=== PATIENT | female | born 1970 | race Caucasian/White ===

== ENCOUNTER 2020-01-19 12:00 | Emergency (ER) | payer OTHER, SELFPAY ==
[2020-01-19 12:23] VITALS: BP 123/80; PULSE 84; RESP 20; TEMP 36.7; O2SAT 99
--- NOTE | 2020-01-19 12:41 | ED.URI ---
HPI - URI/Sore Throat General Chief Complaint: Upper Respiratory Infection Stated Complaint: upper respiratory infection Time Seen by Provider: 01/19/20 12:01 Source: patient Mode of arrival: ambulatory Limitations: no limitations History of Present Illness HPI Narrative: 49-year-old female presents to urgent care with complaints of nasal congestion, sore throat, headache, sinus pressure, intermittent nausea and vomiting for the past week. Patient does vape daily. Patient has been taking [id number] sinus medication as well as 2 doses of leftover amoxicillin and 2 dose of leftover doxycycline with minimal relief. Patient denies sick contacts. Patient denies recent travel. Patient denies fever, bites, chills, cough, shortness of breath or wheezing. MD elicited complaint: sore throat, rhinorrhea, nasal congestion and sinus pain Onset (ago): week(s) (1) Consistency: constant Severity: mild Exacerbating factors: nothing Relieving factors: nothing Treatments prior to arrival: cold medicine and antibiotics Related Data Home Medications Medication Instructions Recorded Confirmed bupropion HCl 150 mg PO DAILY 01/19/20 01/19/20 cariprazine [Vraylar] 1.5 mg PO DAILY 01/19/20 01/19/20 duloxetine [Cymbalta] 20 mg PO BID 01/19/20 01/19/20 famotidine 40 mg PO DAILY 01/19/20 01/19/20 hydrocodone-acetaminophen 1 tablet PO BID PRN 01/19/20 01/19/20 ibuprofen 800 mg PO TID PRN 01/19/20 01/19/20 levothyroxine 125 mcg PO DAILY 01/19/20 01/19/20 solifenacin 10 mg PO DAILY 01/19/20 01/19/20 Allergies Allergy/AdvReac Type Severity Reaction Status Date / Time Sulfa (Sulfonamide Allergy Unknown Rash Verified 01/19/20 12:20 Antibiotics) Review of Systems Constitutional: Constitutional: Denies chills, Denies fatigue, Denies fever(s) and Denies weakness ENT: Reports as per HPI, Denies dysphagia, Denies vertigo, Denies dizziness, Denies epistaxis, Reports nasal congestion and Reports sore throat Cardiovascular: Cardiovascular: Denies chest pain, Denies rapid heart rate, Denies radiating jaw, neck or arm pain and Denies slow heart rate Respiratory: Respiratory: Denies cough, Denies dyspnea and Denies wheezing Gastrointestinal: Gastrointestinal: Denies abdominal pain, Denies bloating, Denies constipation, Denies diarrhea, Reports nausea and Reports vomiting Integumentary/Breasts: Skin/Breast: Denies rash Neurologic: Denies vertigo, Denies syncope, Reports headache(s), Denies focal weakness, Denies numbness and Denies weakness PMFSH Past Medical History Medical History (Updated 01/19/20 @ 12:46 by Mariah Desir APRN) Bipolar 1 disorder Surgical History Surgical History (Updated 01/19/20 @ 12:44 by Mariah Desir APRN) Hx of tonsillectomy Family History Family History Father Family history of Parkinson's disease Social History Social History Smoking end date: 05/12/01 Alcohol intake: current Exam Const: General: healthy appearing, no acute distress and alert Orientation/consciousness: patient oriented x3 HENMT: Ears: EAC's normal General nose exam: Normal external nose present Face and sinus: sinus tenderness frontal Teeth and gingiva: dentition normal Throat: uvula midline Other: Mild erythema and swelling noted to uvula, nasal congestion noted Neck: Neck: normal visual inspection Resp: Effort & Inspection: normal respiratory effort and no use of accessory muscles Auscultation: clear to auscultation bilaterally, no rales and no wheezes Cardio: Rate: regular rate, not bradycardic and not tachycardic Rhythm: regular rhythm and regular rhythm Back/Spine/Pelvis: Back: no CVA tenderness Skin: General skin exam: normal color, no jaundice and no pallor Rashes: no rashes Wounds: no wounds Neuro: General: patient oriented x3 and moves all extremities Extrem: General: normal to inspection
== END 2020-01-19 12:56 | disposition home or self-care (01) ==
PROVIDERS: Emergency Provider Nurse Practitioner Family; PCP Physician Assistant
DX: J01.90 Acute sinusitis, unspecified (principal); F31.9 Bipolar disorder, unspecified
CPT/HCPCS: 87081; 87880; 99213; G0463

== ENCOUNTER 2020-03-01 10:06 | Emergency (ER) | payer OTHER, SELFPAY ==
--- NOTE | ~2020-03-01 | XR_ITS ---
XR chest 1V portable 03/01/2020 10:51 Indication: Cough, fever and shortness of breath Procedure: AP portable chest Comparison: 06/29/2014 Findings: There are patchy bilateral airspace opacities. Heart size normal. No pleural effusion or pn eumothorax. No acute osseous abnormality. Impression: 1: Patchy bilateral airspace disease, compatible with pneumonia. Reviewed, dictated and finalized at location B. Impression: 1: Patchy bilateral airspace disease, compatible with pneumonia.
[2020-03-01 10:12] VITALS: BP 119/89; PULSE 100; RESP 18; TEMP 37.7; O2SAT 100
--- NOTE | 2020-03-01 10:17 | ECG_ITS ---
Measurements Intervals [place] Rate: 106 P: 64 NC: 146 QRS: 52 QRSD: 88 T: 25 QT: 294 QTc: 390 Interpretive Statements SINUS TACHYCARDIA BORDERLINE ST-T WAVE ABNORMALITY- DIFFUSE LEADS BASELINE ARTIFACT- I, II, III, AVR, AVL, AVF ABNORMAL ECG Electronically Signed On 03-01-2020 12:01:11 CDT by James Lainez D.O.
--- NOTE | 2020-03-01 11:00 | PC.NURSE ---
Report given to SUMMER Guillen
[2020-03-01] MEDS: KETOROLAC 30 MG/ML VIAL (*BKC) 15 MG IV PUSH (11:36)
[2020-03-01] MEDS: ACETAMINOPHEN/CODEINE ELIXIR (*CRX) 120-12 MG/5 ML UDC PO (11:37)
[2020-03-01 11:38] VITALS: BP 115/64; PULSE 102; RESP 20; O2SAT 97
--- NOTE | 2020-03-01 12:39 | ED.URI ---
HPI - URI/Sore Throat General Chief Complaint: Upper Respiratory Infection Stated Complaint: SOB, cough, fever Time Seen by Provider: 03/01/20 10:14 Source: patient Mode of arrival: ambulatory Limitations: no limitations History of Present Illness HPI Narrative: Patient presents with chief complaint of cold-like symptoms that began last Friday. Patient states she has been experiencing fever, chills, body aches, persistent cough causing her rib soreness and pain, and mild shortness of breath. Patient states that her daughter tested positive for COVID-19 . Patient states she is herself has not been tested yet. Patient denies a history significant for COPD, asthma, or recurrent pneumonia. Patient states that her cough is her persistent that she has trouble sleeping and has lots of soreness so she presented to the emergency department. Related Data Home Medications Medication Instructions Recorded Confirmed bupropion HCl 150 mg PO DAILY 01/19/20 01/19/20 cariprazine [Vraylar] 1.5 mg PO DAILY 01/19/20 01/19/20 duloxetine [Cymbalta] 20 mg PO DAILY 01/19/20 01/19/20 famotidine 40 mg PO DAILY 01/19/20 01/19/20 levothyroxine 125 mcg PO DAILY 01/19/20 01/19/20 Allergies Allergy/AdvReac Type Severity Reaction Status Date / Time Sulfa (Sulfonamide Allergy Unknown Rash Verified 03/01/20 10:22 Antibiotics) Review of Systems Review of Systems: Narrative: CONSTITUTIONAL: Reports fever and body aches EYES: Denies visual changes, redness, or discharge. ENT: Reports congestion denies rhinorrhea, sore throat, or otalgia. CARDIOVASCULAR: Denies chest pain, palpitations, or edema. RESPIRATORY: Reports persistent cough with rib soreness and mild dyspnea. GASTROINTESTINAL: Denies abdominal pain, nausea, vomiting, or diarrhea. GENITOURINARY: Denies dysuria or hematuria. SKIN: Denies rash or itching. MUSCULOSKELETAL: Denies back pain, joint pain, or myalgia. NEUROLOGIC: Denies headache, numbness, dizziness, or weakness. PSYCHIATRIC: Denies anxiety or depression. [facility] Past Medical History Medical History (Updated 03/01/20 @ 13:00 by Aidan Romero PA-C) Bipolar 1 disorder Surgical History Surgical History (Updated 03/01/20 @ 13:00 by Aidan Romero PA-C) H/O partial thyroidectomy Hx of tonsillectomy Family History Family History Father Family history of Parkinson's disease Social History Social History Smoking end date: 05/12/01 Alcohol intake: current Exam Narrative: Exam Narrative: GENERAL: Well-appearing, well-nourished. HEAD: Normocephalic, atraumatic. EYES: PERRLA and EOMI. ENT: Nares clear, no rhinorrhea or epistaxis. Mucous membranes moist. Oropharynx without tonsillar hypertrophy exudate or other lesions. Bilateral TMs pearly escamilla nonbulging NECK: Supple. No adenopathy or masses. No carotid bruits or JVD CHEST: Clear to auscultation. No respiratory distress. No wheezes rales or rhonchi. Persistent dry cough noted during exam. Patient breathing at a regular rate without gasping or splinting. HEART: Regular rate and rhythm. No murmur heard. Normal peripheral pulses. ABDOMEN: Soft, nontender, nondistended, normal active bowel sounds. EXTREMITIES: Normal range of motion. No edema. SKIN: Warm, dry, no rash. NEURO: No focal deficits. Alert and oriented x3. PSYCH: Normal mood and affect. Course Vital Signs Vital signs: Vital Signs Temperature 99.9 F H 03/01/20 10:12 Pulse Rate 100 03/01/20 10:12 Respiratory Rate 18 03/01/20 10:12 Blood Pressure 119/89 03/01/20 10:12 Pulse Oximetry 100 03/01/20 10:12 Temperature 99.9 F H 03/01/20 10:12 Pulse Rate 102 H 03/01/20 11:38 Respiratory Rate 20 03/01/20 11:38 Blood Pressure 115/64 03/01/20 11:38 Pulse Oximetry 97 03/01/20 11:38 MDM - URI/Sore Throat MDM Narrative Medical decision making narrative
[2020-03-01 13:01] VITALS: BP 108/62; PULSE 80; RESP 20; O2SAT 95
[2020-03-01 19:05] LABS: SARS-CoV-2 RNA PCR Positive
== END 2020-03-01 13:09 | disposition home or self-care (01) ==
PROVIDERS: Physician Assistant; Emergency Provider Emergency Medicine; PCP Physician Assistant
DX: U07.1 COVID-19 (principal); J12.89 Other viral pneumonia; F31.9 Bipolar disorder, unspecified
CPT/HCPCS: 71045; 87081; 87635; 87804; 87880; 93005; 96374; 99284; A9270; C9803; J1885; U0003

== ENCOUNTER 2020-06-19 15:29 | Emergency (ER) | payer OTHER, SELFPAY ==
--- NOTE | ~2020-06-19 | XR_ITS ---
EXAMINATION: XR chest 2V 06/19/2020 16:24 INDICATION: Left chest pain PROCEDURE: 2 view chest COMPARISON: No prior studies for comparison. FINDINGS: The lungs are clear. The cardiomediastinal silhouette is within normal limits. There are no pleural effusions. There is no pneumothorax suspected. IMPRESSION: 1: NO ACUTE CARDIOPULMONARY DISEASE. Reviewed, dictated and finalized at location B. ING MANAGER
[2020-06-19 15:58] VITALS: BP 126/62; PULSE 97; RESP 18; TEMP 36.6; O2SAT 97
--- NOTE | 2020-06-19 16:04 | ECG_ITS ---
Measurements Intervals [place] Rate: 96 P: 52 DC: 133 QRS: 17 QRSD: 88 T: 31 QT: 323 QTc: 409 Interpretive Statements SINUS RHYTHM NONSPECIFIC T-WAVE ABNORMALITY- ANTEROLAT/INF LEADS BASELINE ARTIFACT- I, II, III, AVR, AVF, V6 BORDERLINE ECG Electronically Signed On 06-19-2020 17:22:36 [employer] OPERATOR by James Lainez D.O.
[2020-06-19 16:21] LABS: Basophils Absolute Auto 0.1 K/mm3 (0.0-0.1); Basophils Percent Auto 0.6 % (0.2-1.2); Eosinophils Absolute Auto 0.4 K/mm3 (0-0.3); Eosinophils Percent Auto 4.3 % (0-4.4); Hematocrit 38.3 % (37.0-47.0); Hemoglobin 12.6 g/dL (12.0-15.0); Immature Granulocyte Absolute 0.03 K/mm3 (0.00-0.031); Immature Granulocyte Percent A 0.4 % (0-0.5); Lymphocytes Absolute Auto 2.26 K/mm3 (0.9-3.2); Lymphocytes Percent Auto 27.2 % (18.3-44.2); Mean Corpuscular HGB Conc 32.9 g/dl (32-36); Mean Corpuscular Hemoglobin 30.3 pg (26-34); Mean Corpuscular Volume 92.1 fl (80-100); Mean Platelet Volume 8.2 fl (7.4-10.4); Monocytes Absolute Auto 0.4 K/mm3 (0.1-0.6); Monocytes Percent Auto 5.2 % (2.6-8.5); Neutrophils Absolute Auto 5.2 K/mm3 (1.3-6.7); Neutrophils Percent Auto 62.3 % (45.5-73.1); Platelet Count Result 389 k/mm3 (150-375); Red Blood Count 4.16 M/mm3 (4.2-5.4); Red Cell Distribution Width 12.2 % (11.5-14.5); White Blood Count 8.3 K/mm3 (4.5-10.0)
[2020-06-19 16:31] LABS: INR 0.9; Prothrombin Time 13.1 Seconds (11.1-14.7)
[2020-06-19 16:32] LABS: Partial Thromboplastin Time 26.3 SECONDS (22.3-36.8)
[2020-06-19 16:42] LABS: Anion Gap 9 mmol/L (8-16); Blood Urea Nitrogen 12 mg/dL (7-17); Calcium 9.2 mg/dL (8.4-10.2); Carbon Dioxide 26 mmol/L (22-30); Chloride 106 mmol/L (98-107); Estimated CRCL calculation 66 ml/min; Estimated Glomerular Filt Rate 59; Glucose 114 mg/dL (65-105); Potassium 3.7 mmol/L (3.4-5.0); Sodium 141 mmol/L (137-145)
[2020-06-19 16:54] LABS: Troponin I < 0.012 ng/mL (0.000-0.034)
--- NOTE | 2020-06-19 17:24 | ED.GENADULT ---
HPI - General Adult General Chief complaint: Chest Pain Stated complaint: htn, chest pain Time Seen by Provider: 06/19/20 17:12 Source: patient History of Present Illness HPI narrative: Patient is a 50 y/o female complaining of intermittent left sided chest pain starting 1-2 months ago. She describes her pain as sharp with no radiation. She rates her pain as 10/10 when it hit. However, she has minimal pain. She state that deep breathing and left arm movement aggravates her pain. She has no cough, SOB or fever. She had episodes of dizziness last week, but no dizziness at this time. Related Data Home Medications Medication Instructions Recorded Confirmed bupropion HCl 150 mg PO DAILY 01/19/20 01/19/20 cariprazine [Vraylar] 1.5 mg PO DAILY 01/19/20 01/19/20 duloxetine [Cymbalta] 20 mg PO DAILY 01/19/20 01/19/20 famotidine 40 mg PO DAILY 01/19/20 01/19/20 levothyroxine 125 mcg PO DAILY 01/19/20 01/19/20 Allergies Allergy/AdvReac Type Severity Reaction Status Date / Time Sulfa (Sulfonamide Allergy Unknown Rash Verified 03/01/20 10:22 Antibiotics) Review of Systems Constitutional: Constitutional: Denies chills, Denies fever(s), Denies headache(s) and Denies weakness Eyes: Eyes: Denies blurry vision ENT: Denies headache(s) and Denies neck pain Cardiovascular: Cardiovascular: Reports chest pain and Denies dyspnea Respiratory: Respiratory: Denies cough and Denies dyspnea Gastrointestinal: Gastrointestinal: Denies abdominal pain, Denies diarrhea, Denies nausea and Denies vomiting Genitourinary: Genitourinary: Denies hematuria and Denies dysuria Musculoskeletal: Musculoskeletal: Denies back pain and Denies neck pain Neurologic: Reports dizziness, Denies headache(s) and Denies weakness PMF Past Medical History Medical History Bipolar 1 disorder Surgical History Surgical History H/O partial thyroidectomy Hx of tonsillectomy Family History Family History Father Family history of Parkinson's disease Social History Social History Smoking end date: 05/12/01 Alcohol intake: current Gender identity (if verbalized by the patient): Female Exam Const: General: no acute distress and well developed Orientation/consciousness: oriented to person, oriented to place, oriented to time and patient oriented x3 HENMT: Head: normocephalic Ears: external ears normal General nose exam: Normal external nose present Eyes: General: appearance normal, both eyes and all related structures Conjunctivae: conjunctivae normal Neck: Neck: normal visual inspection and full ROM Chest: Chest palpation & inspection: normal inspection of the chest and no tenderness Resp: Effort & Inspection: normal respiratory effort Auscultation: clear to auscultation bilaterally Cardio: Rate: regular rate Rhythm: regular rhythm GI: GI Palp: No abdominal tenderness and Yes Soft to palpation Skin: General skin exam: normal color and turgor normal Neuro: General: oriented to person, oriented to place, oriented to time and patient oriented x3 Cognition (Neuro): normal cognition Extrem: General: normal to inspection, full ROM and no pedal edema Psych: Appearance: grossly normal Mental Status: mental status grossly normal Affect: normal affect Course Reevaluation(s) Reevaluation #1: Patient wants to leave. She does not want to wait for 2nd troponin and D Dimer. She wants to leave A. She is awake, alert and competent to make medical decision for herself. Date: 06/19/20 Time: 17:45 Vital Signs Vital signs: Vital Signs Temperature 36.6 C 06/19/20 15:58 Pulse Rate 97 06/19/20 15:58 Respiratory Rate 18 06/19/20 15:58 Blood Pressure 126/62 06/19/20 15:58 Pulse Oximetry 97 06/19/20 15:58 Temperature 36.6
[2020-06-19 17:50] LABS: D Dimer 0.27 ug/mL (<0.48)
--- NOTE | 2020-06-19 18:10 | PC.NURSE ---
1740- Called to patients room. Per pt I do not want to stay. I just want to go home. Dr. Moore aware.
== END 2020-06-19 18:14 | disposition left against medical advice (07) ==
LOC: ANHED 17:29
PROVIDERS: Emergency Medicine; Emergency Provider Emergency Medicine; PCP Physician Assistant
DX: R07.9 Chest pain, unspecified (principal); F31.9 Bipolar disorder, unspecified; E89.0 Postprocedural hypothyroidism; R94.31 Abnormal electrocardiogram [ECG] [EKG]
CPT/HCPCS: 36415; 71046; 80048; 84484; 85025; 85380; 85610; 85730; 93005; 99284

== ENCOUNTER 2021-06-14 17:56 | Emergency (ER) | payer OTHER, SELFPAY ==
[2021-06-14 18:03] VITALS: BP 133/72; PULSE 112; RESP 18; TEMP 37.2; O2SAT 98
--- NOTE | 2021-06-14 18:05 | ED.GENADULT ---
HPI - General Adult General Chief complaint: Shortness of Breath/Dyspnea Stated complaint: Cough,Shortness of breath Time Seen by Provider: 06/14/21 18:11 Source: patient, RN notes reviewed and old records reviewed Mode of arrival: ambulatory Limitations: no limitations History of Present Illness HPI narrative: 51 year old female presents to express care with complaints of cough, chest tightness,chills today with some sweats also. Patient reports that she is barking like a dog , has had some chest tightness with cough and congestion with some dyspnea at times. Patient denies any sore throat or any ear pain. She reports that she had Nhan and Nhan COVID vaccination in November 2020 had COVID February of 2020 and also had COVID pneumonia at that time also.Patient has history of being previous cigarette smoker and presently vapes but states that she has not for the past 24 hours. MD complaint: cough Onset (ago): day(s) (2) Quality: aching Treatments prior to arrival: other (Nyquil) Related Data Home Medications Medication Instructions Recorded Confirmed famotidine 40 mg PO DAILY 01/19/20 06/14/21 cariprazine [Vraylar] 4.5 mg PO DAILY 06/14/21 06/14/21 cyanocobalamin (vitamin B-12) 1,000 mcg IM WEEKLY 06/14/21 06/14/21 ergocalciferol (vitamin D2) 1,250 mcg PO WEEKLY 06/14/21 06/14/21 hydrocodone-acetaminophen 1 tablet PO PRN PRN 06/14/21 06/14/21 insulin syringe-needle U-100 [BD 06/14/21 06/14/21 Insulin Syringe] levothyroxine [Euthyrox] 125 mcg PO DAILY 06/14/21 06/14/21 liothyronine 5 mcg PO DAILY 06/14/21 06/14/21 metformin 500 mg PO BID 06/14/21 06/14/21 progesterone micronized 100 mg PO DAILY 06/14/21 06/14/21 semaglutide [Ozempic] 0.25 mg SUBCUT WEEKLY 06/14/21 06/14/21 spironolactone 50 mg PO DAILY 06/14/21 06/14/21 syringe with needle [BD Luer-Mulu 06/14/21 06/14/21 Syringe] testosterone cypionate 200 mg SUBCUT WEEKLY 06/14/21 06/14/21 Allergies Allergy/AdvReac Type Severity Reaction Status Date / Time Sulfa (Sulfonamide Allergy Mild Rash Verified 06/14/21 17:58 Antibiotics) Review of Systems Review of Systems: CONSTITUTIONAL: Positive for fever, chills, or sweats. EYES: Denies visual changes, redness, or discharge. ENT: Positive for rhinorrhea, congestion,no sore throat, or otalgia. CARDIOVASCULAR: Reports chest tightness with cough, no palpitations, or edema. RESPIRATORY: Positive for cough or dyspnea. GASTROINTESTINAL: Denies abdominal pain, nausea, vomiting, or diarrhea. GENITOURINARY: Denies dysuria or hematuria. SKIN: Denies rash or itching. MUSCULOSKELETAL:Chronic back pain, joint pain, or myalgia. NEUROLOGIC: Denies headache, numbness, or weakness. PSYCHIATRIC: Positive for anxiety or depression. All systems reviewed & are unremarkable except as noted in HPI and below PMFSH Past Medical History Medical History (Updated 06/14/21 @ 18:57 by Stephanie Ha NP) Bipolar 1 disorder Bronchitis COVID-28 February 2020 Diabetes states is prediabetic Pneumonia due to COVID-19 virus Surgical History Surgical History (Updated 06/14/21 @ 18:50 by Stephanie Ha NP) H/O partial thyroidectomy H/O tubal ligation Hx of tonsillectomy Family History Family History Father Family history of Parkinson's disease Social History Social History (Updated 06/14/21 @ 18:51 by Stephanie Ha NP) Tobacco type: e-cigarettes/vaping Smoking end date: 05/12/01 Alcohol intake: current Last use: takes hydrocodone for chronic back pain Living arrangements: with family Gender identity (if verbalized by the patient): Female Comments At time of signature, agree with nursing past medical, surgical, social and family history. There is no relevant family history pertinent to the presenting complaint Exam Narrative: GENERAL: Well-appearing, well-nourished, and in no acute distress. HEAD: Normocephalic, atraumatic. EYES: PERRLA and EOMI
== END 2021-06-14 18:43 | disposition home or self-care (01) ==
PROVIDERS: Emergency Provider Registered Nurse; PCP Physician Assistant
DX: U07.1 COVID-19 (principal); J40 Bronchitis, not specified as acute or chronic; F17.200 Nicotine dependence, unspecified, uncomplicated
CPT/HCPCS: 87426; 99213; C9803; G0463

== ENCOUNTER 2021-09-20 15:41 | Outpatient (CLI) | payer OTHER, SELFPAY ==
--- NOTE | ~2021-09-20 | XR_ITS ---
XR thoracic spine 3V DATE: 09/20/2021 16:41 INDICATION: Generalized back pain TECHNIQUE: AP, lateral, swimmer views COMPARISON: None FINDINGS: Mild degenerative disc disease at C5-6. There is mild levoscoliosis of the upper thoracic spine. No fracture or dislocation or bone destruction. The thoracic pedicles are intact. No paraspinal soft tissue thickening. There is minimal degenerative spurring of the lumbar spine. IMPRESSION: Mild levoscoliosis of upper thoracic spine Minimal degenerative spurring of the thoracic spine Reviewed, dictated and finalized at location B.
--- NOTE | ~2021-09-20 | XR_ITS ---
XR cervical spine 4-5V DATE: 09/20/2021 16:41 INDICATION: Neck pain TECHNIQUE: AP, open-mouth, lateral and swimmer views COMPARISON: None FINDINGS: There is mild levoscoliosis of the upper thoracic spine. Slight dextro scoliosis of the cer vical spine C1 and C2 are normally aligned and the odontoid process is intact. No fracture or dislocation or lock ed facet. There is minimal loss of height and anterior spurring at C5-6 consistent with mild degenerative disea se. The remaining cervical interspaces are well preserved. Normal sella turcica. IMPRESSION: Mild degenerative disease at C5-6 Mild levoscoliosis of the upper thoracic spine; slight dextro scoliosis of the cervical spine Reviewed, dictated and finalized at location B.
--- NOTE | ~2021-09-20 | XR_ITS ---
XR lumbar spine 2-3V DATE: 09/20/2021 16:42 INDICATION: Generalized back pain TECHNIQUE: AP, lateral, coned lateral lumbosacral views COMPARISON: None FINDINGS: Mild levoscoliosis of the lumbar spine. The lumbar pedicles are intact. No fracture or bone destruction or spondylolisthesis. There is mild degenerative disc disease and loss of height at L3-4. There is moderately severe degene rative disc disease at L5-S1. The lumbar interspaces are relatively preserved otherwise. The sacroiliac joints are intact. Bilateral tubal inserts are noted IMPRESSION: Mild degenerative disc disease at L3-4 and moderately severe degenerative disc disease at L5-S1 Reviewed, dictated and finalized at location B. IMPRESSION: Mild degenerative disc disease at L3-4 and moderately severe degene rative disc disease at L5-S1
--- NOTE | ~2021-09-20 | XR_ITS ---
XR hip BI 2V w AP pelvis DATE: 09/20/2021 16:42 INDICATION: Bilateral hip pain TECHNIQUE: AP pelvis. AP and lateral views of each hip. COMPARISON: None FINDINGS: No pelvic fracture or bone destruction. The pubic symphysis and sacroiliac joints are intac t. No fracture or dislocation, avascular necrosis or bone destruction of either hip. Hip joint spaces ar e symmetric and relatively preserved. Bilateral tubal inserts. IMPRESSION: No significant abnormality of pelvis or hips Reviewed, dictated and finalized at location B.
--- NOTE | ~2021-09-20 | XR_ITS ---
EXAMINATION: XR knee LT min 4V DATE: 09/20/2021 16:42 INDICATION: Left knee pain. TECHNIQUE: 4 views of left knee including standing views were obtained. COMPARISON: None. FINDINGS: Bone alignment is normal. No fracture. There is mild osteoarthritis of patellofemoral paty rtment characterized by a tiny osteophyte. No knee joint effusion. IMPRESSION: 1. Mild left knee osteoarthritis. Reviewed, dictated and finalized at location A.
--- NOTE | ~2021-09-20 | XR_ITS ---
EXAMINATION: XR knee RT min 4V DATE: 09/20/2021 16:42 INDICATION: Right knee pain. TECHNIQUE: 4 views of right knee including standing views were obtained. COMPARISON: None. FINDINGS: Bone alignment is normal. No fracture. There is mild osteoarthritis of patellofemoral paty rtment characterized by tiny osteophytes. No knee joint effusion. IMPRESSION: 1. Mild right knee osteoarthritis. Reviewed, dictated and finalized at location A.
== END 2021-09-20 15:42 | disposition home or self-care (01) ==
PROVIDERS: PCP Physician Assistant
DX: R10.2 Pelvic and perineal pain (principal); M54.12 Radiculopathy, cervical region; M54.14 Radiculopathy, thoracic region; M54.17 Radiculopathy, lumbosacral region; M25.552 Pain in left hip; M25.551 Pain in right hip; M25.562 Pain in left knee; M25.561 Pain in right knee; M51.36 Other intervertebral disc degeneration, lumbar region; M41.84 Other forms of scoliosis, thoracic region; M46.04 Spinal enthesopathy, thoracic region; M50.322 Other cervical disc degeneration at C5-C6 level; M17.0 Bilateral primary osteoarthritis of knee
CPT/HCPCS: 72050; 72072; 72100; 73521; 73564

== ENCOUNTER 2021-10-02 14:40 | Outpatient (CLI) | payer OTHER, SELFPAY ==
--- NOTE | ~2021-10-02 | MR_ITS ---
EXAMINATION: MR cervical spine wo con DATE: 10/02/2021 15:40 INDICATION: Radiculopathy, left-sided back pain that wraps around to the ribs. TECHNIQUE: Magnetic resonance imaging (MRI) of the cervical spine was performed without intravenous c ontrast. Sequences included sagittal T2-weighted FSE, sagittal T2-weighted FS FSE, sagittal T1-weight ed FSE, axial MERGE, and axial T2-weighted FSE. COMPARISON: X-ray cervical spine 09/20/2021 FINDINGS: Craniocervical association and atlantoaxial joint are intact. Normal alignment. Vertebral b hawa heights are maintained. Disc dehydration at all cervical levels. The cord signal is normal. The f ollowing disc levels are specifically discussed: C2-C3: The disc does not extend beyond the endplate margin. There is no uncovertebral joint osteoarth ritis. There is no facet joint osteoarthritis. There is no neural foraminal stenosis. There is no sheron tral canal stenosis. C3-C4: The disc does not extend beyond the endplate margin. There is no uncovertebral joint osteoarth ritis. There is no facet joint osteoarthritis. There is no neural foraminal stenosis. There is no sheron tral canal stenosis. C4-C5: The disc does not extend beyond the endplate margin. There is no uncovertebral joint osteoarth ritis. There is no facet joint osteoarthritis. There is no neural foraminal stenosis. There is no sheron tral canal stenosis. C5-C6: Mild diffuse bulge mild There is mild uncovertebral joint osteoarthritis. There is no facet mai int osteoarthritis. There is no neural foraminal stenosis. There is no central canal stenosis. C6-C7: Mild diffuse bulge. There is mild uncovertebral joint osteoarthritis. There is no facet joint osteoarthritis. There is no neural foraminal stenosis. There is no central canal stenosis. C7-T1: The disc does not extend beyond the endplate margin. There is no uncovertebral joint osteoarth ritis. There is no facet joint osteoarthritis. There is no neural foraminal stenosis. There is no sheron tral canal stenosis. IMPRESSION: 1. Mild multilevel degenerative disc disease, most pronounced at C5-6 and C6-7. Reviewed, dictated and finalized at location K.
== END 2021-10-02 14:41 | disposition home or self-care (01) ==
PROVIDERS: PCP Physician Assistant; Visit Provider Physical Medicine & Rehabilitation Pain Medicine
DX: M50.122 Cervical disc disorder at C5-C6 level with radiculopathy (principal)
CPT/HCPCS: 72141

== ENCOUNTER 2021-11-07 09:54 | Emergency (ER) | payer OTHER, SELFPAY ==
--- NOTE | ~2021-11-07 | CT_ITS ---
EXAMINATION: CT abdomen pelvis w con DATE: 11/07/2021 11:29 INDICATION: Abdominal pain, nausea, vomiting TECHNIQUE: Computed tomography (CT) of the abdomen and pelvis was performed with 100 CC Omnipaque 300 intravenous contrast. Automated exposure control and iterative reconstruction technique were employe d. Exam dose: 390.63 mGy-cm total exam DLP. COMPARISON: 02/13/2017 CT abdomen pelvis FINDINGS: There is mild discoid atelectasis at the dependent lower lobes. Normal heart size. No pericardial or pleural effusion. Spleen, pancreas and kidneys are unremarkable, other than a 2 small cysts of the kidneys. The gallbla dder appears normal. No bile duct or pancreatic duct dilatation. Normal caliber of the abdominal aorta. No intraperitoneal or retroperitoneal or pelvic mass lesion or adenopathy or ascites. Uterus is unremarkable. Bilateral fallopian tube inserts. There is fluid distention of the jejunum, measuring upper limits of normal diameter, with air-fluid l evels, without transition zone, suggesting enteritis or mild adynamic ileus. There is a prominent amount of fecal material in the colon. No bowel obstruction is noted. No intrape ritoneal free air. Small fat-containing umbilical hernia. Severe degenerative disease at L5-S1. No suspicious osteolytic or osteoblastic lesions are noted. IMPRESSION: Fluid distended jejunum measuring upper limits of normal diameter, with air-fluid levels , without transition zone; and these may be due to enteritis, mild adynamic ileus. Small bowel series might be considered. Prominent amount fecal material in the colon Small renal cysts Reviewed, dictated and finalized at [facility]. Reviewed, dictated and finalized at location B. IMPRESSION: Fluid distended jejunum measuring upper limits of normal diameter, with air-fluid levels, without transition zone; and these may be due to enteri tis, mild adynamic ileus. Small bowel series might be considered. Prominent amount fecal material in the colon Small renal cysts
[2021-11-07 10:00] VITALS: BP 125/73; PULSE 90; RESP 18; TEMP 36.1; O2SAT 98
[2021-11-07 10:15] LABS: Basophils Percent Auto 0.4 % (0.2-1.2); Eosinophils Absolute Auto 0.2 K/mm3 (0-0.3); Hematocrit 38.1 % (37.0-47.0); Hemoglobin 12.8 g/dL (12.0-15.0); Immature Granulocyte Absolute 0.04 K/mm3 (0.00-0.031); Immature Granulocyte Percent A 0.4 % (0-0.5); Lymphocytes Absolute Auto 2.96 K/mm3 (0.9-3.2); Lymphocytes Percent Auto 30.7 % (18.3-44.2); Mean Corpuscular HGB Conc 33.6 g/dl (32-36); Mean Corpuscular Hemoglobin 31.1 pg (26-34); Mean Corpuscular Volume 92.7 fl (80-100); Mean Platelet Volume 8.4 fl (7.4-10.4); Monocytes Absolute Auto 0.4 K/mm3 (0.1-0.6); Monocytes Percent Auto 4.6 % (2.6-8.5); Neutrophils Percent Auto 61.9 % (45.5-73.1); Platelet Count Result 359 k/mm3 (150-375); Red Blood Count 4.11 M/mm3 (4.2-5.4); Red Cell Distribution Width 12.9 % (11.5-14.5); White Blood Count 9.7 K/mm3 (4.5-10.0)
--- NOTE | 2021-11-07 10:16 | PC.NURSE ---
patient reports that she is supposed to be taking lots more medications but is refusing to take them due to the fact that she hates taking medications.
[2021-11-07 10:17] LABS: Appearance Urine Clear (Clear); Bilirubin Urine 1+ (Negative); Blood Urine 2+ (Negative); Glucose Urine UA Negative (Negative); Ketones Urine Trace mg/dL (Negative); Leukocyte Esterase Ur Trace LEU/UL (Negative); Nitrate Urine Negative (Negative); Protein Urine 1+ mg/dL (Negative); Urobilinogen Urine 0.2 mg/dL (<2.0)
[2021-11-07 10:22] LABS: Mucus Urine Few /lpf; RBC Urine 21-50 /hpf (0-2); Squamous Epithelial Cell Urine Moderate /hpf (Few); WBC Urine 0-3 /hpf
[2021-11-07 10:25] LABS: Add Urine Microscopic? YES; Color Urine Dark Yellow (Yellow)
--- NOTE | 2021-11-07 10:28 | ECG_ITS ---
Measurements Intervals [place] Rate: 62 P: 48 NM: 148 QRS: 17 QRSD: 86 T: 20 QT: 382 QTc: 390 Interpretive Statements SINUS RHYTHM COMPARED TO ECG 06/19/2020 16:08:47 NO SIGNIFICANT CHANGES Electronically Signed On 11-07-2021 12:46:06 CDT by Sury Hoang M.D.
--- NOTE | 2021-11-07 10:28 | ED.NAVMDI ---
HPI - Nausea/Vomiting/Diarrhea General Chief complaint: Nausea/Vomiting/Diarrhea <Marimaa Carrillo PA-C - Last Filed: 11/07/21 18:02> Stated complaint: n/v x 8 mos <Mariama Carrillo PA-C - Last Filed: 11/07/21 18:02> Time Seen by Provider: 11/07/21 10:17 <Mariama Carrillo PA-C - Last Filed: 11/07/21 18:02> History of Present Illness HPI Narrative: Patient is a 51-year-old female here for evaluation of nausea and vomiting over the past 8 months. Patient tells me that she has had about 1-2 episodes of vomiting nearly every day without clear trigger. Denies post prandial vomiting. States that the vomiting is associated with a gnawing and burning sensation in her epigastrium. Also notes that she has chronic issues with constipation for as long as I can remember , although her last BM was yesterday. Denies blood in her vomit, diarrhea, fevers, chills. States that she is additionally noted a chest discomfort over the past week that will develop after she vomits, described as a burning. No shortness of breath, diaphoresis, cardiac hx. Patient has been evaluated by her PCP (Job EDMONDSON) and was prescribed zofran for her symptoms which has not been providing much relief. She has not seen a GI specialist. <Mariama Carrillo PA-C - Last Filed: 11/07/21 18:02> Related Data Home medications: Home Medications Medication Instructions Recorded Confirmed ondansetron 4 mg disintegrating tablet 11/07/21 tablet semaglutide 0.25 mg or 0.5 mg (2 mg subcut 11/07/21 mg/1.5 mL) subcutaneous pen injector (Ozempic) <ANIA Bedoya Last Filed: 11/07/21 18:02> Allergies/Adverse reactions: Allergies Allergy/AdvReac Type Severity Reaction Status Date / Time Sulfa (Sulfonamide Allergy Mild Rash Verified 11/07/21 10:14 Antibiotics) <ANIA Bedoya Last Filed: 11/07/21 18:02> Review of Systems Review of Systems: Gen: Denies fevers or chills Eyes: Denies eye pain or visual change ENT: Denies congestion Respiratory: Denies shortness of breath or cough CV: Reports chest pain. Denies palpitations GI: Reports abdominal pain, nausea, vomiting, constipation. Denies diarrhea : denies burning, urgency, frequency or hematuria Musculoskeletal: Denies back pain or muscle pain Neuro: Denies numbness, tingling, weakness or focal weakness Skin: Denies rash Except as documented, all other systems reviewed and negative <Mariama Carrillo PA-C - Last Filed: 11/07/21 18:02> PMFSH Past Medical History Medical History: Medical History Bipolar 1 disorder Bronchitis COVID-28 February 2020 Diabetes states is prediabetic Pneumonia due to COVID-19 virus <Mariama Carrillo PA-C - Last Filed: 11/07/21 18:02> Surgical History Surgical History: Surgical History H/O partial thyroidectomy H/O tubal ligation Hx of tonsillectomy <Mariama Carrillo PA-C - Last Filed: 11/07/21 18:02> Family History Family History: Family History Father Family history of Parkinson's disease <Mariama Carrillo PA-C - Last Filed: 11/07/21 18:02> Social History Social History: Social History (Updated 06/14/21 @ 18:51 by Stephanie Ha NP) Tobacco type: e-cigarettes/vaping Smoking end date: 05/12/01 Alcohol intake: current Last use: takes hydrocodone for chronic back pain Gender identity (if verbalized by the patient): Female <Mariama Carrillo PA-C - Last Filed: 11/07/21 18:02> Exam Narrative: APPEARANCE: Well appearing, no pain in distress, well-nourished. Head: Normocephalic and atraumatic. EYES: PERRLA/EOMI, conjunctivae clear NOSE: No nasal drainage EARS: External ear normal in appearance THROAT: Oropharynx is clear. Muc
[2021-11-07 10:34] LABS: Alanine Aminotransferase 14 U/L (6-35); Albumin Level 4.4 g/dL (3.5-5.1); Alkaline Phosphatase 77 U/L (38-126); Anion Gap 7 mmol/L (8-16); Aspartate Amino Transferase 20 U/L (14-36); Bilirubin,Total 0.4 mg/dL (0.2-1.3); Blood Urea Nitrogen 9 mg/dL (7-17); Calcium 8.6 mg/dL (8.4-10.2); Carbon Dioxide 25 mmol/L (22-30); Chloride 108 mmol/L (98-107); Estimated CRCL calculation 72 ml/min; Estimated Glomerular Filt Rate > 60; Glucose 104 mg/dL (65-110); Lipase 83 U/L (23-300); Potassium 4.2 mmol/L (3.4-5.0); Sodium 140 mmol/L (137-145)
[2021-11-07] MEDS: FAMOTIDINE 20 MG/2 ML VIAL IV PUSH (10:37)
[2021-11-07] MEDS: ONDANSETRON INJ 4 MG/2 ML VIAL IV PUSH (10:37)
[2021-11-07] MEDS: SODIUM CHLORIDE 0.9% IV 1,000 ML 999 ML IV CONT (10:37)
[2021-11-07 10:59] LABS: Troponin I < 0.012 ng/mL (0.000-0.034)
[2021-11-07 11:35] VITALS: BP 163/77; PULSE 55; RESP 17; O2SAT 100
[2021-11-07 12:19] VITALS: BP 118/78; PULSE 62; RESP 12; O2SAT 100
[2021-11-07 12:59] VITALS: BP 114/60; PULSE 67; RESP 13; O2SAT 100
--- NOTE | 2021-11-07 12:59 | PC.NURSE ---
patient requests [employer] paperwork because she needs to get back to work and does not want to wait any longer.
== END 2021-11-07 13:08 | disposition home or self-care (01) ==
PROVIDERS: Physician Assistant; Emergency Provider Emergency Medicine; PCP Physician Assistant
DX: R11.2 Nausea with vomiting, unspecified (principal); F31.9 Bipolar disorder, unspecified; Z86.16 Personal history of COVID-19
CPT/HCPCS: 36415; 74177; 80053; 81001; 81025; 83690; 84484; 85025; 93005; 96361; 96374; 96375; 99284; J2405; J7030; Q9967

== ENCOUNTER 2021-12-10 10:02 | Emergency (ER) | payer OTHER, SELFPAY ==
--- NOTE | 2021-12-10 10:07 | ED.SKABFB ---
HPI - Skin/Abscess/Foreign Bdy General Chief complaint: Skin/Abscess/Foreign Body Stated complaint: spider bite Time Seen by Provider: 12/10/21 10:07 Source: patient Mode of arrival: ambulatory Limitations: no limitations History of Present Illness HPI narrative: Ms. Ferrell is a 51-year-old female patient presenting to the clinic today with complaints of a possible spider bite. She reports that she was bitten yesterday while asleep. She does not know what type of insect bit her however she has having swelling, pain, and itching in the right foot. There is no obvious sign of a insect bite. She has taken some Benadryl and that has not helped. Related Data Home Medications Medication Instructions Recorded Confirmed cariprazine 4.5 mg capsule 4.5 mg DAILY 12/10/21 12/10/21 (Vraylar) clonidine HCl 0.1 mg tablet 0.1 mg BID 12/10/21 12/10/21 divalproex 125 mg tablet,delayed 125 mg PO BID 12/10/21 12/10/21 release semaglutide 0.25 mg or 0.5 mg (2 0.5 mg subcut WEEKLY 12/10/21 12/10/21 mg/1.5 mL) subcutaneous pen injector (Ozempic) Allergies Allergy/AdvReac Type Severity Reaction Status Date / Time Sulfa (Sulfonamide Allergy Mild Rash Verified 12/10/21 10:19 Antibiotics) Review of Systems Review of Systems: Pertinent positives per HPI. Patient denies any fever, chills, rash, headache, visual changes, dizziness, cough, runny nose, sore throat, shortness of breath, chest pain, palpitations, nausea, vomiting, diarrhea, constipation, abdominal pain, or any urinary issues. [facility] Past Medical History Medical History Abnormal CT of the abdomen Bipolar 1 disorder Bronchitis Constipation COVID-28 February 2020 Diabetes states is prediabetic Pneumonia due to COVID-19 virus Vomiting Surgical History Surgical History H/O partial thyroidectomy H/O tubal ligation Hx of tonsillectomy Family History Family History Father Family history of Parkinson's disease Social History Social History Smoking status: Never smoker Tobacco type: e-cigarettes/vaping Smoking end date: 05/12/01 Alcohol intake: current Last use: takes hydrocodone for chronic back pain Gender identity (if verbalized by the patient): Female Comments At the time of my signature, I reviewed and agree with the nursing past medical, surgical, social, and family history. There is no relevant family history pertinent to the patient complaint. Exam Narrative: General: Well-developed, well nourished, in no apparent distress Head: Normocephalic, atraumatic. Cardio: Regular rate and rhythm, s1 and s2 normal, no murmur appreciated. Resp: Clear to auscultation bilaterally, no rhonchi, rales, wheezing or rubs. Integumentary: [place], warm, and dry, intact without lesion, mild redness with significant swelling to the right foot and ankle, no sign of insect bite or sting however patient is having some severe itching. Very mild warmth with palpation when compared to the left foot. Course Course Emergency Course: Portions of this record may have been created with voice recognition software. Level of Care: Express Care Visit Vital Signs Vital signs: Vital signs reviewed MDM - Skin/Abscess/Foreign Bdy MDM Narrative Medical decision making narrative: At the time of visit patient is resting comfortably on the exam table. Patient has what appears to be an allergic reaction from an insect bite or sting. I will give her a prescription for some prednisone and have her take Benadryl rest ice and elevate her right foot. Supportive measures were discussed with the patient she voiced understanding of discharge instructions and agrees to the treatment plan Differential Diagnosis Differential diagnosis:
[2021-12-10 10:18] VITALS: BP 119/70; PULSE 81; RESP 18; TEMP 36.8; O2SAT 100
== END 2021-12-10 10:26 | disposition home or self-care (01) ==
PROVIDERS: Emergency Provider Nurse Practitioner Family
DX: S90.861A Insect bite (nonvenomous), right foot, initial encounter (principal); W57.XXXA Bitten or stung by nonvenomous insect and other nonvenomous arthropods, initial encounter; R73.03 Prediabetes; Z86.16 Personal history of COVID-19
CPT/HCPCS: 99213; G0463

== ENCOUNTER 2021-12-12 08:17 | Outpatient (CLI) | payer OTHER, SELFPAY ==
--- NOTE | ~2021-12-12 | XR_ITS ---
XR shoulder RT min 2V DATE: 12/12/2021 08:51 INDICATION: Chronic right shoulder pain. Repetitive motion at work. TECHNIQUE: 4 views COMPARISON: None FINDINGS: Small focal calcification at lateral aspect of greater tuberosity which may be due to mild calcific tendinitis. There is mild superior subluxation of the humeral head at the glenohumeral joint suggesting right rot ator cuff atrophy or tear. No fracture, dislocation, periosteal reaction or bone destruction. IMPRESSION: Suggestion of rotator cuff atrophy or tear, possible mild calcific tendinitis Reviewed, dictated and finalized at location B.
--- NOTE | ~2021-12-12 | XR_ITS ---
EXAMINATION: XR small bowel follow through DATE: 12/12/2021 12:27 INDICATION: Abnormal findings on diagnostic imaging of other modality with prior CT demonstrating eit her enteritis or adynamic ileus TECHNIQUE: Quality Assurance Supervisor Trim radiograph(s) of the abdomen was/were obtained. Oral contrast was administered, and sequential radiographs of the abdomen were obtained until oral contrast was noted to be in the proxi mal colon. Spot fluoroscopic images of the small bowel were obtained. Fluoroscopy exposure time was 0 .2 minutes. A total of 5 fluoroscopic images and 10 overhead radiographs were obtained. COMPARISON: None. FINDINGS: Quality Assurance Supervisor Trim radiograph demonstrates bilateral Essure type fallopian tube occlusion devices in the pelvis. T here are also several phleboliths in the pelvis. Moderate amount of colonic stool. No dilated gas-abbie led loops of bowel to suggest obstruction. Transit time from the stomach to proximal colon was approx imately 3 hours and 30 minutes. There is normal caliber and mucosal fold pattern throughout the small bowel. Terminal ileum is normal. No tethering or abnormal mass effect observed upon the small michael l with real-time fluoroscopy. IMPRESSION: 1. Normal small bowel follow-through. Reviewed, dictated and finalized at location A.
--- NOTE | ~2021-12-12 | MR_ITS ---
EXAMINATION: MR thoracic spine wo con DATE: 12/12/2021 10:12 INDICATION: Radiculopathy. Chronic mid back pain. No injury. TECHNIQUE: Magnetic resonance imaging (MRI) of the thoracic spine was performed without intravenous c ontrast. Sagittal localizer T1-weighted FSE of the cervical spine was obtained. Thoracic spine sequen bryan included sagittal T2-weighted FSE, sagittal T1-weighted FSE, sagittal T2-weighted FS FSE, and axi al T2-weighted FSE. COMPARISON: X-ray thoracic spine 09/20/2021. FINDINGS: Mild thoracic scoliosis. Mild thoracic kyphosis. Vertebral body hemangiomas at multiple lev els. Vertebral body heights are aligned. Multilevel loss of disc height and hydration from T3 to T9. Small central protrusions causing mild canal stenosis at C5-6, C6-7, and T8-9. 4 mm left paracentral protrusion at T7-8 which contacts the cord causing mild-moderate canal stenosis. 4 mm central disc ex trusion at T9-10 which contacts the cord causing mild-moderate canal stenosis. No significant neural foraminal narrowing. Vertebral body heights are intact. Normal facets. The cord is normal in signal a nd caliber. Conus terminates at L1-2. IMPRESSION: 1. Multilevel degenerative disc disease, with multilevel small central disc protrusions/extrusions an d multilevel mild-moderate canal stenosis. Reviewed, dictated and finalized at location K. IMPRESSION: 1. Multilevel degenerative disc disease, with multilevel small central disc pro trusions/extrusions and multilevel mild-moderate canal stenosis.
== END 2021-12-12 08:18 | disposition home or self-care (01) ==
LOC: ANHIMG 08:23
PROVIDERS: Visit Provider Nurse Practitioner Family
DX: M47.814 Spondylosis without myelopathy or radiculopathy, thoracic region (principal); R11.10 Vomiting, unspecified; S43.081A Other subluxation of right shoulder joint, initial encounter; R93.5 Abnormal findings on diagnostic imaging of other abdominal regions, including retroperitoneum; K59.00 Constipation, unspecified; M40.204 Unspecified kyphosis, thoracic region
CPT/HCPCS: 72146; 73030; 74250

== ENCOUNTER 2021-12-31 00:23 | Day surgery (SDC) | payer OTHER, SELFPAY ==
[2021-12-19 16:11] VITALS: BMI 28.3
--- NOTE | 2021-12-20 12:22 | PC.NURSE ---
12/20/2021 Anesthesia, Dr. Johnson and Dr. Smith aware of patients' substance use of daily cocaine. Ok to proceed as scheduled for EGD and Colonoscopy on 12/31/2021
--- NOTE | 2021-12-28 14:14 | PM.HPGS ---
History of Present Illness History of Present Illness Consent: Risks, benefits, and alternatives have been discussed and questions answered. Patient agrees to proceed with procedure. Chief complaint: neoplasm screening, vomiting Narrative: Hope Ferrell is a 51 year old female who?for the past 8 months has had sudden random episodes of vomiting. Reports 1-2 episodes almost daily. She cannot identify any triggers that make her vomiting worse.? she denies any postprandial vomiting. Reports even waking in the middle of the night to vomit.? states she will come nauseous right before vomiting but other than that she denies any nausea. she reports intermittent heartburn symptoms 1 or 2 times a week that she treats with [id number] antacids as needed with good relief.? reports last Friday she woke with an episode of diarrhea which prompted her to follow up in the ER. CT scan revealed?Fluid distended jejunum measuring upper limits of normal diameter, with air-fluid levels, without transition zone; and these may be due to enteritis, mild adynamic ileus. She is also due for colon cancer screening. Review of Systems Review of Systems: All systems reviewed & are unremarkable except as noted in HPI and below PMFSH Past Medical History Medical History Abnormal CT of the abdomen Bipolar 1 disorder Bronchitis Constipation COVID-28 February 2020 Diabetes states is prediabetic Pneumonia due to COVID-19 virus Vomiting Surgical History Surgical History H/O partial thyroidectomy H/O tubal ligation Hx of tonsillectomy Family History Family History Father Family history of Parkinson's disease Social History Social History Smoking status: Current every day smoker Tobacco type: e-cigarettes/vaping Smoking end date: 05/12/01 Alcohol intake: current Substance use: current Substance use type: crack/cocaine Other substance usage details: Daily Last use: takes hydrocodone for chronic back pain Living arrangements: with family Gender identity (if verbalized by the patient): Female Spiritual care concerns: No Meds Home Medications and Allergies Home Medications Medication Instructions Recorded Confirmed Type cariprazine 4.5 mg capsule 4.5 mg PO DAILY 12/10/21 12/31/21 History (Vraylar) clonidine HCl 0.1 mg tablet 0.1 mg PO BID 12/10/21 12/31/21 History divalproex 125 mg tablet,delayed 125 mg PO BID 12/10/21 12/31/21 History release semaglutide 0.25 mg or 0.5 mg (2 0.5 mg subcut WEEKLY 12/10/21 12/31/21 History mg/1.5 mL) subcutaneous pen injector ([employer]) Allergies Allergy/AdvReac Type Severity Reaction Status Date / Time Sulfa (Sulfonamide Allergy Mild Rash Verified 12/31/21 11:46 Antibiotics) Exam Const: General: alert Orientation/consciousness: patient oriented x3 Resp: Auscultation: clear to auscultation bilaterally Cardio: Rhythm: regular rhythm GI: GI Palp: Yes Soft to palpation and No Tenderness to palpation present (GI) Neuro: General: patient oriented x3 Assessment and Plan Assessment and plan (1) Vomiting: Code(s): R11.10 - Vomiting, unspecified Status: Acute Assessment and Plan: EGD with possible biopsy or dilatation or cautery. (2) Colon cancer screening: Code(s): Z12.11 - Encounter for screening for malignant neoplasm of colon Status: Acute Assessment and Plan: Colonoscopy with possible biopsy or polypectomy or cautery or injection of substances.
[2021-12-31 11:47] VITALS: BP 112/64; PULSE 100; RESP 16; TEMP 36.6; O2SAT 98
[2021-12-31] MEDS: LACTATED RINGERS 1,000 ML 150 ML IV CONT (11:49)
--- NOTE | 2021-12-31 12:56 | P.PNAN_ITS ---
Anes - Eval Pre Procedure Procedure: Operation Date: 12/31/21 13:00 Proposed Procedures p Esophagogastroduodenoscopy & Screening Colonoscopy - Tad Cuevas MD Date/Time: 12/31/21 12:56 Pre Op Diagnosis: neoplasm screening, vomiting Patient Data Age: 51 Gender: F Height: 1.63 m Weight: 74.4 kg Last Vital Signs Temp 36.6 C 12/31/21 11:47 Pulse 100 12/31/21 11:47 Resp 16 12/31/21 11:47 BP 112/64 12/31/21 11:47 Pulse Ox 98 12/31/21 11:47 O2 Del Method Room Air 12/31/21 11:47 Allergies Allergy/AdvReac Type Severity Reaction Status Date / Time Sulfa (Sulfonamide Allergy Mild Rash Verified 12/31/21 11:46 Antibiotics) Home Medications Medication Instructions Recorded Confirmed Type cariprazine 4.5 mg capsule 4.5 mg PO DAILY 12/10/21 12/31/21 History (Vraylar) clonidine HCl 0.1 mg tablet 0.1 mg PO BID 12/10/21 12/31/21 History divalproex 125 mg tablet,delayed 125 mg PO BID 12/10/21 12/31/21 History release semaglutide 0.25 mg or 0.5 mg (2 0.5 mg subcut WEEKLY 12/10/21 12/31/21 History mg/1.5 mL) subcutaneous pen injector (Ozempic) Patient hx anesthesia problems: none Family hx anesthesia problems: none Results Review: All pre-operative results and documents have been reviewed as part of the pre- operative evaluation. [facility] Past Medical History Medical History Abnormal CT of the abdomen Bipolar 1 disorder Bronchitis Constipation COVID-28 February 2020 Diabetes states is prediabetic Pneumonia due to COVID-19 virus Vomiting Surgical History Surgical History H/O partial thyroidectomy H/O tubal ligation Hx of tonsillectomy Family History Family History Father Family history of Parkinson's disease Social History Social History Smoking status: Current every day smoker Tobacco type: e-cigarettes/vaping Smoking end date: 05/12/01 Alcohol intake: current Substance use: current Substance use type: crack/cocaine Other substance usage details: Daily Last use: takes hydrocodone for chronic back pain Living arrangements: with family Gender identity (if verbalized by the patient): Female Spiritual care concerns: No Exam Day of Procedure 12/31/21 12:56
--- NOTE | 2021-12-31 13:09 | WPDANESEPPF ---
Anes - Initial Pre Proc Eval Procedure: Operation Date: 12/31/21 13:00 Proposed Procedures p Esophagogastroduodenoscopy & Screening Colonoscopy - Tad Cuevas MD Date/Time: 12/31/21 13:09 Surgeon: Tad Cueavs MD Pre Op Diagnosis: neoplasm screening, vomiting Patient Data Age: 51 Gender: F Height: 1.63 m Weight: 74.4 kg Last Vital Signs Temp 97.8 F 12/31/21 11:47 Pulse 100 12/31/21 11:47 Resp 16 12/31/21 11:47 BP 112/64 12/31/21 11:47 Pulse Ox 98 12/31/21 11:47 O2 Del Method Room Air 12/31/21 11:47 Allergies Allergy/AdvReac Type Severity Reaction Status Date / Time Sulfa (Sulfonamide Allergy Mild Rash Verified 12/31/21 11:46 Antibiotics) Home Medications Medication Instructions Recorded Confirmed Type cariprazine 4.5 mg capsule 4.5 mg PO DAILY 12/10/21 12/31/21 History (Vraylar) clonidine HCl 0.1 mg tablet 0.1 mg PO BID 12/10/21 12/31/21 History divalproex 125 mg tablet,delayed 125 mg PO BID 12/10/21 12/31/21 History release semaglutide 0.25 mg or 0.5 mg (2 0.5 mg subcut WEEKLY 12/10/21 12/31/21 History mg/1.5 mL) subcutaneous pen injector (Ozempic) Patient hx anesthesia problems: none Family hx anesthesia problems: none Results Review: All pre-operative results and documents have been reviewed as part of the pre-operative evaluation. [facility] Past Medical History Medical History Abnormal CT of the abdomen Bipolar 1 disorder Bronchitis Constipation COVID-28 February 2020 Diabetes states is prediabetic Pneumonia due to COVID-19 virus Vomiting Surgical History Surgical History H/O partial thyroidectomy H/O tubal ligation Hx of tonsillectomy Family History Family History Father Family history of Parkinson's disease Social History Social History Smoking status: Current every day smoker Tobacco type: e-cigarettes/vaping Smoking end date: 05/12/01 Alcohol intake: current Substance use: current Substance use type: crack/cocaine Other substance usage details: Daily Last use: takes hydrocodone for chronic back pain Living arrangements: with family Gender identity (if verbalized by the patient): Female Spiritual care concerns: No Anes - Eval Final PreProcedure Day of Procedure 12/31/21 13:09 Patient weight: overweight Heart: regular rate and rhythm Lungs: clear to auscultation Airway: Mallampati scale class II Neurological: alert and oriented Last oral intake: >/= 8 hours ASA classification: III Emergent: no Anesthetic plan: proceed (pt has a history of cocaine abuse for past 25 years and has a daily use; has had anesthesia in the past while under the influence) Anesthesia type and monitoring: general GIVS Results Review: All pre-operative results and documents have been reviewed as part of the pre-operative evaluation. Informed Consent: The patient's anesthetic plan and its attendant risks and benefits were discussed with the patient/family/POA. Questions were solicited and answers provided to the satisfaction of the patient/family/POA.
--- NOTE | 2021-12-31 13:14 | SUR.OPER ---
EGD start 1310 end 1314, Colonoscopy start 1321 end 1333
[2021-12-31 13:38] VITALS: BP 99/66; PULSE 70; RESP 18; O2SAT 100
[2021-12-31 13:48] VITALS: BP 95/46; PULSE 70; RESP 19; O2SAT 100
[2021-12-31 13:58] VITALS: BP 110/68; PULSE 67; RESP 20; O2SAT 100
== END 2021-12-31 14:09 | disposition home or self-care (01) ==
PROVIDERS: PCP Physician Assistant; Visit Provider Internal Medicine Gastroenterology
PROC: 0DJ08ZZ Inspection of Upper Intestinal Tract, Via Natural or Artificial Opening Endoscopic (ICD-10-PCS; CPT 43235; principal; 2021-12-31 13:00)
DX: Z12.11 Encounter for screening for malignant neoplasm of colon (principal); R11.11 Vomiting without nausea; F31.9 Bipolar disorder, unspecified; E11.9 Type 2 diabetes mellitus without complications; Z86.16 Personal history of COVID-19; F17.210 Nicotine dependence, cigarettes, uncomplicated
CPT/HCPCS: 45378; 43239; 87081; 88305; J2704; J7120

== ENCOUNTER 2022-01-16 12:55 | Emergency (ER) | payer OTHER, SELFPAY ==
--- NOTE | ~2022-01-16 | XR_ITS ---
EXAMINATION: XR chest 2V DATE: 01/16/2022 13:22 INDICATION: Cough. Shortness of breath. TECHNIQUE: Frontal and lateral views of the chest were obtained. COMPARISON: Chest 2 views 06/19/2020 FINDINGS: The chest demonstrates clear lungs without pneumonia, pleural effusion, or pneumothorax. Th e heart size is normal. IMPRESSION: 1. No acute cardiopulmonary disease. Reviewed, dictated and finalized at location A.
[2022-01-16 13:04] VITALS: BP 137/62; PULSE 104; RESP 18; TEMP 36.6; O2SAT 99
--- NOTE | 2022-01-16 13:16 | ED.URI ---
HPI - URI/Sore Throat General Chief Complaint: Upper Respiratory Infection Stated Complaint: . Time Seen by Provider: 01/16/22 13:06 Source: patient and RN notes reviewed Mode of arrival: ambulatory Limitations: no limitations History of Present Illness HPI Narrative: 51-year-old female presented for complaint of shortness of breath and nonproductive cough for the last 3 days. Feels a tickle at the center of her chest causing her to cough. States she has a history of pneumonia and symptoms feel similar. Also endorses this is how she feels when she gets COVID. She denies sick contacts. She has been using an albuterol rescue inhaler today for symptoms. She endorses shortness of breath is at rest not necessarily worse with exertion. She denies hemoptysis, wheezing, fever, chills, or vomiting. MD elicited complaint: cough Related Data Home Medications Medication Instructions Recorded Confirmed cariprazine 4.5 mg capsule 4.5 mg PO DAILY 12/10/21 01/16/22 (Vraylar) clonidine HCl 0.1 mg tablet 0.1 mg PO BID 12/10/21 01/16/22 divalproex 125 mg tablet,delayed 125 mg PO BID 12/10/21 01/16/22 release albuterol sulfate 90 mcg/actuation 90 mcg inhalation DIRECTED 01/16/22 01/16/22 aerosol inhaler levothyroxine 125 mcg tablet 125 mcg DAILY 01/16/22 01/16/22 Allergies Allergy/AdvReac Type Severity Reaction Status Date / Time Sulfa (Sulfonamide Allergy Mild Rash Verified 01/16/22 13:10 Antibiotics) Review of Systems Review of Systems: CONSTITUTIONAL: denies malaise, chills, sweats, fever EYES: Denies visual changes, redness, or discharge ENT: denies rhinorrhea, congestion, sinus pain, otalgia, sore throat CARDIOVASCULAR: Denies chest pain, palpitations, edema RESPIRATORY: Reports cough, dyspnea GASTROINTESTINAL: Denies abdominal pain, nausea, vomiting, diarrhea SKIN: Denies rash or itching MUSCULOSKELETAL: denies myalgia NEUROLOGIC: Denies headache [facility] Past Medical History Medical History Abnormal CT of the abdomen Bipolar 1 disorder Bronchitis Constipation COVID-28 February 2020 Diabetes states is prediabetic Pneumonia due to COVID-19 virus Vomiting Surgical History Surgical History H/O partial thyroidectomy H/O tubal ligation Hx of tonsillectomy Family History Family History Father Family history of Parkinson's disease Social History Social History Smoking status: Current every day smoker Tobacco type: e-cigarettes/vaping Smoking end date: 05/12/01 Alcohol intake: current Substance use: current Substance use type: crack/cocaine Other substance usage details: Daily Last use: takes hydrocodone for chronic back pain Gender identity (if verbalized by the patient): Female Spiritual care concerns: No Exam Narrative: GENERAL: Ill-appearing, nontoxic EYES: conjunctivae clear ENT: Mucous membranes moist. TM pearly escamilla with dull light reflex bilaterally; no tragal tenderness. CHEST: Clear to auscultation, breath sounds equal. Nonproductive cough, No wheezing, rhonchi, rales, or stridor. No respiratory distress, speaks in full sentences. HEART: Regular rate and rhythm. No murmur heard. SKIN: Warm, dry, no rash. NEURO: Alert and oriented x3. PSYCH: Normal mood and affect Course Course Emergency Course: Patient is aware of diagnosis, understands and agrees to treatment plan. Anticipatory guidance given. Patient agrees to follow-up as directed and is aware of reasons to seek care at the emergency department. Portions of this record may have been created with voice recognition software Level of Care: Express Care Visit Vital Signs Vital signs: Vital Signs Temperature 97.8 F 01/16/22 13:04 Pulse Rate 104 H 01/16/22 13:04 Respirator
== END 2022-01-16 13:57 | disposition home or self-care (01) ==
PROVIDERS: Emergency Provider Nurse Practitioner Family
DX: J40 Bronchitis, not specified as acute or chronic (principal); Z20.822 Contact with and (suspected) exposure to COVID-19; F17.290 Nicotine dependence, other tobacco product, uncomplicated; Z86.16 Personal history of COVID-19; R73.03 Prediabetes
CPT/HCPCS: 71046; 87426; 99213; C9803; G0463

== ENCOUNTER 2022-01-21 14:16 | Emergency (ER) | payer OTHER, SELFPAY ==
[2022-01-21 14:26] VITALS: BP 109/81; PULSE 91; RESP 18; TEMP 36.3; O2SAT 99
--- NOTE | 2022-01-21 14:34 | ED.GENADULT ---
HPI - General Adult General Chief complaint: Upper Respiratory Infection Stated complaint: cough History of Present Illness HPI narrative: 51 y/o female. PMHx Bipolar I, Bronchitis, Daily vape smoker, Pre-diabetic. Presents to [facility] today with acute complaints of continued and worsening productive cough & nasal congestion for the past 1 week. She reports a now 'yellow' phlegm production, and 'thick' nasal discharge. Seen previously here at [facility], and has been resuming Medrol dose PK and Tessalon Perles with minimal response according to client. Chest Xray and Covid test on record from only a few days ago, reveals a negative viral test, and no acute cardiopulmonary findings. She denies fever. No chest pain, palpitations, wheezing, edema. In addition, she is now concerned for a post illness 'cold sore' that has erupted to her lower lip. No intra-oral lesions or issues. She is without additional acute c/o upon PE. Related Data Home Medications Medication Instructions Recorded Confirmed cariprazine 4.5 mg capsule 4.5 mg PO DAILY 12/10/21 01/21/22 (Vraylar) clonidine HCl 0.1 mg tablet 0.1 mg PO BID 12/10/21 01/21/22 divalproex 125 mg tablet,delayed 125 mg PO BID 12/10/21 01/21/22 release albuterol sulfate 90 mcg/actuation 90 mcg inhalation DIRECTED 01/16/22 01/21/22 aerosol inhaler levothyroxine 125 mcg tablet 125 mcg DAILY 01/16/22 01/21/22 Allergies Allergy/AdvReac Type Severity Reaction Status Date / Time Sulfa (Sulfonamide Allergy Mild Rash Verified 01/21/22 14:31 Antibiotics) Review of Systems Review of Systems: CONSTITUTIONAL: Denies fever, chills, sweats. EYES: Denies visual changes, redness, discharge. ENT: + rhinorrhea, congestion. No sore throat, otalgia. CARDIOVASCULAR: Denies chest pain, palpitations, edema. RESPIRATORY: Denies dyspnea, wheezing. + worsening cough/congestion. GASTROINTESTINAL: Denies abdominal pain, nausea, vomiting, diarrhea. GENITOURINARY: Denies dysuria, hematuria, abnormal discharge SKIN: Denies rash or itching. MUSCULOSKELETAL: Denies acute back pain, joint pain, or myalgia. NEUROLOGIC: Denies numbness, or focal weakness. PSYCHIATRIC: Denies anxiety or depression. [facility] Past Medical History Medical History Abnormal CT of the abdomen Bipolar 1 disorder Bronchitis Constipation COVID-28 February 2020 Diabetes states is prediabetic Pneumonia due to COVID-19 virus Vomiting Surgical History Surgical History H/O partial thyroidectomy H/O tubal ligation Hx of tonsillectomy Family History Family History Father Family history of Parkinson's disease Social History Social History Smoking status: Current every day smoker Tobacco type: e-cigarettes/vaping Smoking end date: 05/12/01 Alcohol intake: current Substance use: current Substance use type: crack/cocaine Other substance usage details: Daily Last use: takes hydrocodone for chronic back pain Gender identity (if verbalized by the patient): Female Spiritual care concerns: No Exam Narrative: GENERAL: This is a well-nourished, well-developed adult, in no apparent distress. HEAD: normocephalic. EYES: Sclera clear/white. EARS: External ears normal, auditory canals clear and without drainage, TMs normal. NOSE: External nose normal. Positive Rhinorrhea, purulent bilateral nasal discharge. No obstruction. THROAT: Mucous membranes moist, posterior pharynx is erythematous. No exudates. There is an uncomplicated canker sore overlying mid-lower external lip. NECK: Neck supple, non-tender without lymphadenopathy, masses or thyromegaly. CARDIOVASCULAR: Regular rate and rhythm without murmurs, gallops, or rubs. RESPIRATORY: Breath sounds equal dheeraj
== END 2022-01-21 14:37 | disposition home or self-care (01) ==
PROVIDERS: Emergency Provider Nurse Practitioner Adult Health; PCP Physician Assistant
DX: J06.9 Acute upper respiratory infection, unspecified (principal); J40 Bronchitis, not specified as acute or chronic; R73.03 Prediabetes; Z86.16 Personal history of COVID-19; Z90.89 Acquired absence of other organs; F31.9 Bipolar disorder, unspecified
CPT/HCPCS: 99213; G0463

== ENCOUNTER 2022-01-28 16:32 | Emergency (ER) | payer OTHER, SELFPAY ==
[2022-01-28 16:45] VITALS: BP 116/79; PULSE 97; RESP 18; TEMP 36.4; O2SAT 98
--- NOTE | 2022-01-28 16:59 | ED.URI ---
HPI - URI/Sore Throat General Chief Complaint: Upper Respiratory Infection Stated Complaint: Cough,Shortness of Breath Time Seen by Provider: 01/28/22 16:42 Source: patient, RN notes reviewed and old records reviewed Mode of arrival: ambulatory Limitations: no limitations History of Present Illness HPI Narrative: 51-year-old female who presents to express care with complaints of cough, shortness of breath and feels that her cough is getting worse. patient ws seen on the 01/16/22 and also on 01/11/22 in regards to cough and feeling like she had bronchitis. She has been treated with medrol dose pack and also with a Z-pack . Patient states that she needs another round of antibiotics bcause she knows her body. Patient reports that she has been using her inhaler and also she has taken the cough tablets. She states she feels like there is stuff down in her lungs that just won't come up and wh kade been wheezing especially when she lays down. Patient denies any know fevers chills or sweats or any sinus congestion or drainage, MD elicited complaint: cough Onset (ago): day(s) ( states symptoms started) Treatments prior to arrival: other (inhaler, prescription cough tabs, medrol dose pack and Z-pack) Related Data Home Medications Medication Instructions Recorded Confirmed cariprazine 4.5 mg capsule 4.5 mg PO DAILY 12/10/21 01/28/22 (Vraylar) clonidine HCl 0.1 mg tablet 0.1 mg PO BID 12/10/21 01/28/22 divalproex 125 mg tablet,delayed 125 mg PO BID 12/10/21 01/28/22 release albuterol sulfate 90 mcg/actuation 90 mcg inhalation DIRECTED 01/16/22 01/28/22 aerosol inhaler levothyroxine 125 mcg tablet 125 mcg DAILY 01/16/22 01/28/22 Allergies Allergy/AdvReac Type Severity Reaction Status Date / Time Sulfa (Sulfonamide Allergy Mild Rash Verified 01/28/22 16:36 Antibiotics) Review of Systems Review of Systems: CONSTITUTIONAL: Denies fever, chills, or sweats. EYES: Denies visual changes, redness, or discharge. ENT: positive for rhinorrhea, congestion, sore throat, or otalgia. CARDIOVASCULAR: Denies chest pain, palpitations, or edema. RESPIRATORY: Positive cough reports dyspnea at times GASTROINTESTINAL: Denies abdominal pain, nausea, vomiting, or diarrhea. GENITOURINARY: Denies dysuria or hematuria. SKIN: Denies rash or itching. MUSCULOSKELETAL: chronic back pain, joint pain, or myalgia. NEUROLOGIC: Denies headache, numbness, or weakness. PSYCHIATRIC: Positive anxiety or depression. All systems reviewed & are unremarkable except as noted in HPI and below PMFSH Past Medical History Medical History Abnormal CT of the abdomen Bipolar 1 disorder Bronchitis Constipation COVID-28 February 2020 Diabetes states is prediabetic Pneumonia due to COVID-19 virus Vomiting Surgical History Surgical History H/O partial thyroidectomy H/O tubal ligation Hx of tonsillectomy Family History Family History Father Family history of Parkinson's disease Social History Social History Smoking status: Current every day smoker Tobacco type: e-cigarettes/vaping Smoking end date: 05/12/01 Alcohol intake: current Substance use: current Substance use type: crack/cocaine Other substance usage details: Daily Last use: takes hydrocodone for chronic back pain Gender identity (if verbalized by the patient): Female Spiritual care concerns: No Comments At time of signature, agree with nursing past medical, surgical, social and family history. There is no relevant family history pertinent to the presenting complaint Exam Narrative: GENERAL: Well-appearing, well-nourished, and in no acute distress. HEAD: Normocephalic, atraumatic. EYES: PERRLA and EOMI. ENT: Nares re with clear rhinorrhea no epistaxi
== END 2022-01-28 17:20 | disposition home or self-care (01) ==
PROVIDERS: Emergency Provider Registered Nurse; PCP Physician Assistant
DX: J06.9 Acute upper respiratory infection, unspecified (principal); R05.9 Cough, unspecified; Z87.891 Personal history of nicotine dependence; Z86.16 Personal history of COVID-19; R73.03 Prediabetes; F31.9 Bipolar disorder, unspecified
CPT/HCPCS: 99213; G0463

== ENCOUNTER 2022-04-18 15:25 | Emergency (ER) | payer OTHER, SELFPAY ==
--- NOTE | ~2022-04-18 | XR_ITS ---
XR chest 2V 04/18/2022 16:20 Indication: Cough for 4 months. History of bronchitis. Procedure: 2 view chest Comparison: Comparison to multiple prior studies sequentially, with oldest reviewed study dated 06/29. Findings: New nodular density left lower thorax just lateral to the cardiac margin. No focal air spac e disease, pulmonary edema, pleural effusion or suspected pneumothorax. Impression: 1: New nodular density left lower thorax. Follow-up CT chest without contrast recommended. 2: No acute cardiopulmonary disease. Reviewed, dictated and finalized at location A. [facility]ATOR Impression: 1: New nodular density left lower thorax. Follow-up CT chest without contrast r ecommended. 2: No acute cardiopulmonary disease.
--- NOTE | ~2022-04-18 | CT_ITS ---
EXAMINATION: CT diagnostic chest wo con DATE: 04/18/2022 19:25 INDICATION: New nodule seen on chest x-ray TECHNIQUE: Computed tomography (CT) of the chest was performed without intravenous contrast. The dose -length product was 189.62 mGy-cm. Automated exposure control and iterative reconstruction technique were employed. COMPARISON: Chest x-ray dated 04/18/[address] dated 05/04/2018 FINDINGS: No thoracic lymphadenopathy. Heart size normal. No significant pleural or pericardial effus ion. Upper abdomen is unremarkable. No significant soft tissue abnormality. There is a 2 mm right upp er lobe nodule. No suspicious pulmonary nodules or masses are identified to correspond to the chest x -ray abnormality. No endobronchial lesions. There is subtle groundglass opacities in the right lower lobe, likely small airway disease or infection. Mild thoracic spondylosis. No acute bone or joint abn ormality. There is a 4 mm right upper lobe nodule, image 46. No pneumothorax.. IMPRESSION: 1. Small right-sided pulmonary nodules measuring 4 mm or less, most likely benign. Consider follow-up low dose CT chest in 12 months. 2: Subtle groundglass opacities of the right lower lobe which may represent infection or small airwa y disease. Reviewed, dictated and finalized at location A. [employer] [employer] [facility] IMPRESSION: 1. Small right-sided pulmonary nodules measuring 4 mm or less, most likely shobha gn. Consider follow-up low dose CT chest in 12 months. 2: Subtle groundglass opacities of the right lower lobe which may represent in fection or small airway disease.
[2022-04-18 15:59] VITALS: BP 134/85; PULSE 87; RESP 16; TEMP 36.3; O2SAT 99
[2022-04-18 17:05] LABS: Influenza A QL RT-PCR Negative (Negative); Influenza B QL RT-PCR Negative (Negative); SARS-CoV-2 RNA PCR Negative
--- NOTE | 2022-04-18 18:22 | PC.NURSE ---
I've been sick for 4 months. c/o cough, dyspnea
[2022-04-18 18:52] LABS: Basophils Absolute Auto 0.1 K/mm3 (0.0-0.1); Basophils Percent Auto 0.7 % (0.2-1.2); Eosinophils Absolute Auto 0.5 K/mm3 (0-0.3); Eosinophils Percent Auto 4.8 % (0-4.4); Hemoglobin 12.9 g/dL (12.0-15.0); Immature Granulocyte Absolute 0.03 K/mm3 (0.00-0.031); Immature Granulocyte Percent A 0.3 % (0-0.5); Lymphocytes Absolute Auto 3.71 K/mm3 (0.9-3.2); Lymphocytes Percent Auto 38.8 % (18.3-44.2); Mean Corpuscular HGB Conc 33.1 g/dl (32-36); Mean Corpuscular Hemoglobin 30.9 pg (26-34); Mean Corpuscular Volume 93.5 fl (80-100); Mean Platelet Volume 8.2 fl (7.4-10.4); Monocytes Absolute Auto 0.6 K/mm3 (0.1-0.6); Neutrophils Absolute Auto 4.7 K/mm3 (1.3-6.7); Neutrophils Percent Auto 49.4 % (45.5-73.1); Platelet Count Result 335 k/mm3 (150-375); Red Blood Count 4.17 M/mm3 (4.2-5.4); White Blood Count 9.6 K/mm3 (4.5-10.0)
[2022-04-18 19:04] LABS: Anion Gap 11 mmol/L (8-16); Blood Urea Nitrogen 9 mg/dL (7-17); Calcium 8.6 mg/dL (8.4-10.2); Carbon Dioxide 25 mmol/L (22-30); Chloride 104 mmol/L (98-107); Estimated CRCL calculation 96 ml/min; Estimated Glomerular Filt Rate > 60; Glucose 117 mg/dL (65-110); Potassium 3.3 mmol/L (3.4-5.0); Prothrombin Time 12.8 Seconds (11.1-14.7); Sodium 140 mmol/L (137-145)
[2022-04-18 19:06] LABS: Partial Thromboplastin Time 27.4 SECONDS (22.3-36.8)
[2022-04-18 19:11] LABS: D Dimer 0.35 ug/mL (<0.48)
[2022-04-18 19:13] LABS: NT Pro B Type Natriuretic Pept 35 pg/mL (5-100)
[2022-04-18 19:27] LABS: Magnesium 1.9 mg/dL (1.6-2.3)
--- NOTE | 2022-04-18 19:40 | ED.URI ---
HPI - URI/Sore Throat General Chief Complaint: Upper Respiratory Infection Stated Complaint: CHRONIC BRONCHITIS Time Seen by Provider: 04/18/22 18:24 Source: patient Mode of arrival: ambulatory Limitations: no limitations History of Present Illness HPI Narrative: This is a 52 year old female that presents to the ER for chronic cough. Ongoing over the last 4 months. Reports associated shortness of breath. Reports she has been seen at several urgent cares and been prescribed at least 4 different rounds of antibiotics without relief. She also has albuterol as needed and a daily inhaled corticosteroid that was prescribed. Denies fever, chest pain, or productive cough. Related Data Home Medications Medication Instructions Recorded Confirmed cariprazine 4.5 mg capsule 4.5 mg PO DAILY 12/10/21 01/28/22 (Vraylar) clonidine HCl 0.1 mg tablet 0.1 mg PO BID 12/10/21 01/28/22 divalproex 125 mg tablet,delayed 125 mg PO BID 12/10/21 01/28/22 release albuterol sulfate 90 mcg/actuation 90 mcg inhalation DIRECTED 01/16/22 01/28/22 aerosol inhaler levothyroxine 125 mcg tablet 125 mcg DAILY 01/16/22 01/28/22 Allergies Allergy/AdvReac Type Severity Reaction Status Date / Time Sulfa (Sulfonamide Allergy Mild Rash Verified 01/28/22 16:36 Antibiotics) Review of Systems Review of Systems: CONSTITUTIONAL: Denies fever ENT: Denies rhinorrhea, congestion, sore throat CARDIOVASCULAR: Denies chest pain, or edema. RESPIRATORY: Reports cough and dyspnea. All systems reviewed & are unremarkable except as noted in HPI and below PMFSH Past Medical History Medical History Abnormal CT of the abdomen Bipolar 1 disorder Bronchitis Constipation COVID-28 February 2020 Diabetes states is prediabetic Pneumonia due to COVID-19 virus Vomiting Surgical History Surgical History H/O partial thyroidectomy H/O tubal ligation Hx of tonsillectomy Family History Family History Father Family history of Parkinson's disease Social History Social History Smoking status: Current every day smoker Tobacco type: e-cigarettes/vaping Smoking end date: 05/12/01 Alcohol intake: current Substance use: current Substance use type: crack/cocaine Other substance usage details: Daily Last use: takes hydrocodone for chronic back pain Gender identity (if verbalized by the patient): Female Spiritual care concerns: No Exam Narrative: GENERAL: Well-appearing, well-nourished, and in no acute distress. HEAD: Normocephalic, atraumatic. EYES: EOMI. ENT: Nares clear, no rhinorrhea or epistaxis. Mucous membranes moist. Oropharynx without tonsillar hypertrophy exudate or other lesions. Bilateral TMs pearly escamilla non-bulging NECK: Supple. No adenopathy or masses. CHEST: Clear to auscultation. No respiratory distress. No wheezes rales or rhonchi HEART: Regular rate and rhythm. No murmur heard. Normal peripheral pulses. EXTREMITIES: Normal range of motion. No edema. SKIN: Warm, dry, no rash. NEURO: No focal deficits. Alert and oriented x3. PSYCH: Normal mood and affect Course Vital Signs Vital signs: Vital Signs Temperature 97.4 F L 04/18/22 15:59 Pulse Rate 87 04/18/22 15:59 Respiratory Rate 16 04/18/22 15:59 Blood Pressure 134/85 04/18/22 15:59 Pulse Oximetry 99 04/18/22 15:59 Temperature 97.4 F L 04/18/22 15:59 Pulse Rate 87 04/18/22 15:59 Respiratory Rate 16 04/18/22 15:59 Blood Pressure 134/85 04/18/22 15:59 Pulse Oximetry 99 04/18/22 15:59 MDM - URI/Sore Throat MDM Narrative Medical decision making narrative: Patient presents to the emergency department for a cough ongoing over the last 4 months. Has been evaluated by multiple urgent cares. Started on numerous rou
[2022-04-18] MEDS: POTASSIUM CHLORIDE 20 MEQ TABLET 40 MEQ PO (19:42)
[2022-04-18 20:58] VITALS: BP 122/70; PULSE 95; O2SAT 98
== END 2022-04-18 21:03 | disposition home or self-care (01) ==
PROVIDERS: Emergency Medicine; Emergency Provider Physician Assistant
DX: R05.3 Chronic cough (principal); R91.8 Other nonspecific abnormal finding of lung field; Z20.822 Contact with and (suspected) exposure to COVID-19; R73.03 Prediabetes; F31.9 Bipolar disorder, unspecified; Z86.16 Personal history of COVID-19; Z87.01 Personal history of pneumonia (recurrent); E89.0 Postprocedural hypothyroidism; Z87.891 Personal history of nicotine dependence; R06.02 Shortness of breath
CPT/HCPCS: 36415; 71046; 71250; 80048; 83735; 83880; 85025; 85380; 85610; 85730; 87636; 99284; A9270

== ENCOUNTER 2022-07-01 13:00 | Emergency (ER) | payer OTHER, SELFPAY ==
[2022-07-01 13:30] VITALS: BP 112/54; PULSE 68; RESP 18; TEMP 36.2; O2SAT 98
--- NOTE | 2022-07-01 14:03 | ED.EAR ---
HPI - Ear Problem General Chief complaint: Ear Stated complaint: bilateral ear pain,cough Time Seen by Provider: 07/01/22 14:04 Source: patient Mode of arrival: ambulatory Limitations: no limitations History of Present Illness HPI Narrative: 52 presented for complaint of bilateral ear pain, right worse than left, and associated vertigo for one week. Has had nasal congestion and popping ears. Reports ear pain 11/18. Also reports chronic cough since 01/2022, that was improving for about 2 weeks, but states it also returned. Also endorses vomiting 5 times yesterday r/t reflux. Taking Benadryl and Tums for symptoms. Denies abdominal pain or fever. Endorses history of vertigo and states meclizine helps but she ran out. MD Complaint: ear pain Related Data Home Medications Medication Instructions Recorded Confirmed albuterol sulfate 90 mcg/actuation 90 mcg inhalation DIRECTED 01/16/22 07/01/22 aerosol inhaler cyanocobalamin (vitamin B-12) 1,000 mcg IM WEEKLY 07/01/22 07/01/22 1,000 mcg/mL injection solution estradiol cypionate 5 mg/mL See Rx Instructions .Route .COMPLEX 07/01/22 07/01/22 intramuscular oil (Depo-Estradiol) levothyroxine 125 mcg tablet 125 mcg PO DAILY 07/01/22 07/01/22 liothyronine 5 mcg tablet 10 mcg PO DAILY 07/01/22 07/01/22 metformin 500 mg tablet,extended 1,000 mg PO DAILY 07/01/22 07/01/22 release 24 hr progesterone micronized 100 mg 100 mg PO HS 07/01/22 07/01/22 capsule semaglutide 1 mg/dose (4 mg/3 mL) 1 mg subcut WEEKLY 07/01/22 07/01/22 subcutaneous pen injector (Ozempic) spironolactone 50 mg tablet 50 mg PO DAILY 07/01/22 07/01/22 syringe with needle 3 mL 18 x 1 07/01/22 07/01/22 1/2 (BD Luer-Mulu Syringe) syringe with needle 3 mL 25 gauge 07/01/22 07/01/22 x 1 (BD Luer-Mulu Syringe) testosterone cypionate 200 mg/mL 200 mg subcut WEEKLY 07/01/22 07/01/22 intramuscular oil trazodone 50 mg tablet 50 mg PO HS 07/01/22 07/01/22 Allergies Allergy/AdvReac Type Severity Reaction Status Date / Time Sulfa (Sulfonamide AdvReac Mild Rash Verified 07/01/22 13:53 Antibiotics) Review of Systems Review of Systems: CONSTITUTIONAL: Denies malaise, chills, or fever. EYES: Denies visual changes, redness, or discharge. ENT: Denies rhinorrhea, congestion, sinus pain, and sore throat. Reports ear pain CARDIOVASCULAR: Denies chest pain, palpitations, or edema. RESPIRATORY: Denies cough or dyspnea. GASTROINTESTINAL: Denies abdominal pain, nausea, vomiting, diarrhea SKIN: Denies rash or itching. MUSCULOSKELETAL: Denies myalgia. NEUROLOGIC: Denies headache. All systems reviewed & are unremarkable except as noted in HPI and below PMFSH Past Medical History Medical History (Updated 07/01/22 @ 14:22 by Adriane Slater, KAYLIE) Abnormal CT of the abdomen Bipolar 1 disorder Bronchitis Constipation COVID-28 February 2020 Diabetes states is prediabetic Pneumonia due to COVID-19 virus Vomiting Surgical History Surgical History H/O partial thyroidectomy H/O tubal ligation Hx of tonsillectomy Family History Family History Father Family history of Parkinson's disease Social History Social History Smoking status: Current every day smoker Tobacco type: e-cigarettes/vaping Smoking end date: 05/12/01 Alcohol intake: current Substance use: current Substance use type: crack/cocaine Other substance usage details: Daily Last use: takes hydrocodone for chronic back pain Living arrangements: with family Gender identity (if verbalized by the patient): Female Spiritual care concerns: No Comments At time of signature, agree with nursing past medical, surgical, social and family history. There is no relevant family history pertinent to the presenting complaint Exam Narrative: GENERAL: Well-appearing,
== END 2022-07-01 14:25 | disposition home or self-care (01) ==
PROVIDERS: Emergency Provider Nurse Practitioner Family
DX: R42 Dizziness and giddiness (principal); F17.290 Nicotine dependence, other tobacco product, uncomplicated
CPT/HCPCS: 99213; G0463

== ENCOUNTER 2022-07-29 16:56 | Emergency (ER) | payer OTHER, SELFPAY ==
[2022-07-29 17:31] VITALS: BP 98/71; PULSE 91; RESP 20; TEMP 36.2; O2SAT 99
--- NOTE | 2022-07-29 18:27 | ED.URI ---
HPI - URI/Sore Throat General Chief Complaint: Upper Respiratory Infection Stated Complaint: Cough,Bilateral Ear Irritation,Possible UTI Source: patient Mode of arrival: ambulatory Limitations: no limitations History of Present Illness HPI Narrative: 52-year-old female presents to [facility] with complaints of cough, bilateral ear pain and congestion, nasal congestion, body aches and chills for the past 4 days. Patient reports that she also started 1 week ago with urinary frequency, urgency and pain. Patient has been taking [id number] azo with minimal relief. Patient reports history of urinary tract infections. Patient reports that she was treated with Augmentin and ear drops for her primary care provider approximately 3 weeks ago. Patient vapes. MD elicited complaint: cough, rhinorrhea, nasal congestion and sinus pain Onset (ago): day(s) (4) Able to tolerate fluids by mouth: Yes Treatments prior to arrival: cold medicine Related Data Home Medications Medication Instructions Recorded Confirmed semaglutide 1 mg/dose (4 mg/3 mL) 1 mg subcut WEEKLY 07/01/22 07/29/22 subcutaneous pen injector (Ozempic) Allergies Allergy/AdvReac Type Severity Reaction Status Date / Time Sulfa (Sulfonamide AdvReac Mild Rash Verified 07/01/22 13:53 Antibiotics) Review of Systems Constitutional: Constitutional: Reports chills, Reports fatigue and Denies fever(s) ENT: Denies dizziness, Denies epistaxis, Reports nasal congestion and Denies sore throat Comments: Sinus pain, bilateral ear congestion Respiratory: Respiratory: Reports cough, Denies dyspnea and Denies wheezing Gastrointestinal: Gastrointestinal: Denies diarrhea, Denies nausea and Denies vomiting Genitourinary: Genitourinary: Denies abnormal vaginal bleeding, Denies hematuria, Reports nocturia, Reports dysuria, Denies urinary incontinence and Denies vaginal discharge Musculoskeletal: Musculoskeletal: Denies arthralgias and Denies joint swelling Integumentary/Breasts: Skin/Breast: Denies pruritus, Denies erythema and Denies rash Neurologic: Denies dizziness, Denies syncope and Denies headache(s) [facility] Past Medical History Medical History Abnormal CT of the abdomen Bipolar 1 disorder Bronchitis Constipation COVID-28 February 2020 Diabetes states is prediabetic Pneumonia due to COVID-19 virus Vomiting Surgical History Surgical History H/O partial thyroidectomy H/O tubal ligation Hx of tonsillectomy Family History Family History Father Family history of Parkinson's disease Social History Social History Smoking status: Current every day smoker Tobacco type: e-cigarettes/vaping Smoking end date: 05/12/01 Alcohol intake: current Substance use: current Substance use type: crack/cocaine Other substance usage details: Daily Last use: takes hydrocodone for chronic back pain Living arrangements: with family Gender identity (if verbalized by the patient): Female Spiritual care concerns: No Comments At time of signature, I agree with nursing past medical, surgical, social and family history. There is no relevant family history pertinent to the presenting complaint. Exam Const: General: healthy appearing and no acute distress Nutritional Appearance: well nourished Limitations: no limitations HENMT: Head: normal to inspection Ears: EAC's normal and TM abnormal wth effusion serous bilateral Throat: posterior oropharynx normal and uvula midline Other: Moderate nasal congestion noted Eyes: Conjunctivae: conjunctivae normal Neck: Neck: normal visual inspection Resp: Effort & Inspection: normal respiratory effort and not labored Auscultation: clear to auscultation bilaterally, no crackles, no rales, no rho
== END 2022-07-29 18:59 | disposition home or self-care (01) ==
PROVIDERS: Emergency Provider Nurse Practitioner Family
DX: N39.0 Urinary tract infection, site not specified (principal); J06.9 Acute upper respiratory infection, unspecified; F17.290 Nicotine dependence, other tobacco product, uncomplicated; Z20.822 Contact with and (suspected) exposure to COVID-19
CPT/HCPCS: 81003; 87086; 87426; 87804; 99213; C9803; G0463

== ENCOUNTER 2023-01-27 10:19 | Outpatient (CLI) | payer OTHER, SELFPAY ==
--- NOTE | ~2023-01-27 | XR_ITS ---
EXAMINATION: XR hip RT min 2V DATE: 01/27/2023 10:34 INDICATION: Right hip pain TECHNIQUE: Two views of right hip were obtained. COMPARISON: 09/20/2021 FINDINGS: Bone alignment is normal. There is no fracture. There are phleboliths of the pelvis. A tuba l occlusion devices noted. IMPRESSION: 1. No acute osseous abnormality. Reviewed, dictated and finalized at location B.
== END 2023-01-27 10:20 | disposition home or self-care (01) ==
PROVIDERS: PCP Emergency Medicine; Referring Provider Physical Medicine & Rehabilitation Pain Medicine; Visit Provider Emergency Medicine
DX: M25.551 Pain in right hip (principal)
CPT/HCPCS: 73502

== ENCOUNTER 2023-04-01 12:30 | Emergency (ER) | payer OTHER, SELFPAY ==
--- NOTE | 2023-04-01 12:37 | ED.URI ---
HPI - URI/Sore Throat General Chief Complaint: Upper Respiratory Infection Stated Complaint: congestion,cough,bilateral ear discomfort Time Seen by Provider: 04/01/23 12:37 Source: patient Mode of arrival: ambulatory Limitations: no limitations History of Present Illness HPI Narrative: Sixto is a 53-year-old female patient presenting to the clinic today with complaints of cough, congestion, bilateral ear pain times 2-3 days. She reports she is blowing out some green nasal drainage. States that she is having a lot of sinus pressure and congestion. No fever or chills. Does report some dizziness as well. Is having difficulty hearing out the right ear. MD elicited complaint: cough, rhinorrhea, nasal congestion, sinus pain and other (Ear pain) Related Data Home Medications Medication Instructions Recorded Confirmed semaglutide 1 mg/dose (4 mg/3 mL) 1 mg subcut WEEKLY 07/01/22 04/01/23 subcutaneous pen injector (Ozempic) allopurinol 100 mg tablet mg 04/01/23 cariprazine 1.5 mg capsule mg 04/01/23 (Vraylar) estradiol cypionate 5 mg/mL mg IM 04/01/23 intramuscular oil (Depo-Estradiol) levothyroxine 50 mcg tablet 50 mcg PO DAILY 04/01/23 04/01/23 progesterone micronized 100 mg 100 mg PO HS 04/01/23 04/01/23 capsule rosuvastatin 20 mg tablet 20 mg PO DAILY 04/01/23 04/01/23 spironolactone 50 mg tablet 50 mg PO DAILY 04/01/23 04/01/23 syringe with needle 3 mL 18 x 1 04/01/23 04/01/2305/13 (BD Luer-Mulu Syringe) testosterone cypionate 200 mg/mL 50 mg IM WEEKLY 04/01/23 04/01/23 intramuscular oil trazodone 50 mg tablet 50 mg PO HS PRN Insomnia 04/01/23 04/01/23 Allergies Allergy/AdvReac Type Severity Reaction Status Date / Time Sulfa (Sulfonamide AdvReac Mild Rash Verified 04/01/23 12:37 Antibiotics) Review of Systems Review of Systems: Pertinent positives per HPI. Patient denies any fever, chills, rash, headache, visual changes, dizziness, cough, shortness of breath, chest pain, palpitations, nausea, vomiting, diarrhea, constipation, abdominal pain, or any urinary issues. [facility] Past Medical History Medical History Abnormal CT of the abdomen Bipolar 1 disorder Bronchitis Constipation COVID-28 February 2020 Diabetes states is prediabetic Pneumonia due to COVID-19 virus Vomiting Surgical History Surgical History H/O partial thyroidectomy H/O tubal ligation Hx of tonsillectomy Family History Family History Father Family history of Parkinson's disease Social History Social History Smoking status: Current every day smoker Tobacco type: e-cigarettes/vaping Smoking end date: 05/12/01 Alcohol intake: current Substance use: current Substance use type: crack/cocaine Other substance usage details: Daily Last use: takes hydrocodone for chronic back pain Living arrangements: with family Gender identity (if verbalized by the patient): Female Spiritual care concerns: No Comments At the time of my signature, I reviewed and agree with the nursing past medical, surgical, social, and family history. There is no relevant family history pertinent to the patient complaint. Exam Narrative: General: Well-developed, well nourished, in no apparent distress Head: Normocephalic, atraumatic Eyes: Pupils equally round and reactive to light bilaterally, EOM intact, sclera and conjunctive clear, no discharge, lids normal Ears: Cerumen impaction to the right ear canal, ear irrigation was performed and was removed successfully, TMs intact and congested, ear canals clear, no drainage, grossly hearing normal. Nose: Nares patent, clear nasal discharge, mild inflammation, no sinus tenderness. Mouth: Oral pharynx without lesions or masses, good dentition, MM
[2023-04-01 12:43] VITALS: BP 102/66; PULSE 85; RESP 18; TEMP 36.3; O2SAT 99
== END 2023-04-01 13:07 | disposition home or self-care (01) ==
PROVIDERS: Emergency Provider Nurse Practitioner Family; PCP Emergency Medicine
DX: J06.9 Acute upper respiratory infection, unspecified (principal); H61.21 Impacted cerumen, right ear; F17.290 Nicotine dependence, other tobacco product, uncomplicated; Z79.899 Other long term (current) drug therapy
CPT/HCPCS: 69210; 99213; G0463

== ENCOUNTER 2023-05-31 11:02 | Emergency (ER) | payer OTHER, SELFPAY ==
[2023-05-31 11:15] VITALS: BP 124/60; PULSE 84; RESP 18; TEMP 36.6; O2SAT 100
--- NOTE | 2023-05-31 11:17 | ED.GENADULT ---
HPI - General Adult General Chief complaint: Ear Stated complaint: rt earache Time Seen by Provider: 05/31/23 11:21 Source: patient, RN notes reviewed and old records reviewed Mode of arrival: ambulatory Limitations: no limitations History of Present Illness HPI narrative: 53-year-old female presents to the [facility] with complaints of right ear pain that started 3 weeks ago. Patient states last couple of days started having some drainage from it. Was placing? pain drops. ? Patient also has been pouring peroxide your ear Reports it as being very muffled Has not seek medical treatment Onset (ago): week(s) (3) Treatments prior to arrival: other (Peroxide and pain drops ) Related Data Home Medications Medication Instructions Recorded Confirmed semaglutide 1 mg/dose (4 mg/3 mL) 1 mg subcut WEEKLY 07/01/22 05/31/23 subcutaneous pen injector (Ozempic) rosuvastatin 20 mg tablet 20 mg PO DAILY 04/01/23 05/31/23 syringe with needle 3 mL 18 x 1 04/01/23 04/01/2305/13 (BD Luer-Mulu Syringe) testosterone cypionate 200 mg/mL 50 mg IM WEEKLY 04/01/23 05/31/23 intramuscular oil trazodone 50 mg tablet 50 mg PO HS Insomnia 04/01/23 05/31/23 estradiol cypionate 5 mg/mL 0.5 mg IM DIRECTED 05/31/23 05/31/23 intramuscular oil (Depo-Estradiol) hydrocodone 5 mg-acetaminophen 325 5 tablet DIRECTED 05/31/23 05/31/23 mg tablet lumateperone 10.5 mg capsule 10.5 mg PO DIRECTED 05/31/23 05/31/23 (Caplyta) omeprazole 20 mg capsule,delayed 20 mg DIRECTED 05/31/23 05/31/23 release Allergies Allergy/AdvReac Type Severity Reaction Status Date / Time Sulfa (Sulfonamide AdvReac Mild Rash Verified 05/31/23 11:24 Antibiotics) Review of Systems Review of Systems: All systems reviewed & are unremarkable except as noted in HPI and below Constitutional: Constitutional: Reports no additional constitutional complaints Eyes: Eyes: Reports no additional eye complaints ENT: Reports as per HPI and Reports otalgia (Right) Cardiovascular: Cardiovascular: Reports no additional cardiovascular complaints, Denies chest pain and Denies dyspnea Respiratory: Respiratory: Reports no additional respiratory complaints, Denies chest congestion, Denies cough and Denies dyspnea Gastrointestinal: Gastrointestinal: Reports no additional gastrointestinal complaints, Denies abdominal pain, Denies nausea and Denies vomiting Musculoskeletal: Musculoskeletal: Reports no additional musculoskeletal complaints Integumentary/Breasts: Skin/Breast: Reports system reviewed and no additional complaints, except as docu Neurologic: Reports system reviewed and no additional complaints, except as documented Psychiatric: Psychiatric: Reports no additional psychiatric complaints Allergic/Immunologic: Allergic/Immunologic: Reports no additional allergic/immunologic complaints PMFSH Past Medical History Medical History Abnormal CT of the abdomen Bipolar 1 disorder Bronchitis Constipation COVID-28 February 2020 Diabetes states is prediabetic Pneumonia due to COVID-19 virus Vomiting Surgical History Surgical History H/O partial thyroidectomy H/O tubal ligation Hx of tonsillectomy Family History Family History Father Family history of Parkinson's disease Social History Social History Smoking status: Current every day smoker Tobacco type: e-cigarettes/vaping Smoking end date: 05/12/01 Alcohol intake: current Substance use: current Substance use type: crack/cocaine Other substance usage details: Daily Last use: takes hydrocodone for chronic back pain Living arrangements: with family Gender identity (if verbalized by the patient): Female Spiritual care concerns: No Comments At the time of my sign
== END 2023-05-31 11:40 | disposition home or self-care (01) ==
PROVIDERS: Emergency Provider Nurse Practitioner; PCP Emergency Medicine
DX: H60.501 Unspecified acute noninfective otitis externa, right ear (principal); F17.290 Nicotine dependence, other tobacco product, uncomplicated; R73.03 Prediabetes; Z90.89 Acquired absence of other organs
CPT/HCPCS: 99213; G0463

== ENCOUNTER 2023-07-02 10:52 | Emergency (ER) | payer OTHER, SELFPAY ==
--- NOTE | ~2023-07-02 | XR_ITS ---
Clinical Indication: Cough PA and lateral views of the chest: Comparison: 04/18/2022 Findings: The lungs are clear, without evidence of focal consolidation or pleural effusion. Cardiome diastinal silhouette is within normal limits. Bones and soft tissues are unremarkable. Impression: Normal chest. Reviewed, dictated and finalized at [facility]. BURNER Impression: Normal chest.
--- NOTE | 2023-07-02 11:08 | ED.EAR ---
HPI - Ear Problem General Chief complaint: Unspecified Stated complaint: Pnuemonia like symptoms Source: patient Mode of arrival: ambulatory Limitations: no limitations History of Present Illness HPI Narrative: 53 y/o female presented for c/o chest congestion and cough x1 week. Endorses wheezing and sob with exertion. Reports a hx of pneumonia. Taking multiple otc meds along with norco for rib pain without relief. Pt also using nebulizer and inhalers. Pt vapes. Related Data Home Medications Medication Instructions Recorded Confirmed semaglutide 1 mg/dose (4 mg/3 mL) 1 mg subcut WEEKLY 07/01/22 07/02/23 subcutaneous pen injector (Ozempic) rosuvastatin 20 mg tablet 20 mg PO DAILY 04/01/23 07/02/23 syringe with needle 3 mL 18 x 1 04/01/23 04/01/2305/13 (BD Luer-Mulu Syringe) testosterone cypionate 200 mg/mL 50 mg IM WEEKLY 04/01/23 07/02/23 intramuscular oil trazodone 50 mg tablet 50 mg PO HS Insomnia 04/01/23 07/02/23 estradiol cypionate 5 mg/mL 0.5 mg IM DIRECTED 05/31/23 07/02/23 intramuscular oil (Depo-Estradiol) hydrocodone 5 mg-acetaminophen 325 5 tablet DIRECTED 05/31/23 07/02/23 mg tablet lumateperone 10.5 mg capsule 10.5 mg PO DIRECTED 05/31/23 07/02/23 (Caplyta) omeprazole 20 mg capsule,delayed 20 mg DIRECTED 05/31/23 07/02/23 release Allergies Allergy/AdvReac Type Severity Reaction Status Date / Time Sulfa (Sulfonamide AdvReac Mild Rash Verified 07/02/23 11:05 Antibiotics) Review of Systems Review of Systems: CONSTITUTIONAL: Denies body aches, reports fever, chills, or sweats. EYES: Denies visual changes, redness, or discharge. ENT: reports rhinorrhea, congestion, denies sore throat, or otalgia.Reports chronic right hearing loss CARDIOVASCULAR: Denies chest pain, palpitations, or edema. RESPIRATORY: Reports cough, sob, wheezing. GASTROINTESTINAL: Denies abdominal pain, nausea, vomiting, or diarrhea. SKIN: Denies rash, itching, or wounds. MUSCULOSKELETAL: Denies back pain, joint pain, or myalgia. NEUROLOGIC: Denies headache, numbness, tingling, or weakness. All systems reviewed & are unremarkable except as noted in HPI and below PMFSH Past Medical History Medical History Abnormal CT of the abdomen Bipolar 1 disorder Bronchitis Constipation COVID-28 February 2020 Diabetes states is prediabetic Pneumonia due to COVID-19 virus Vomiting Surgical History Surgical History H/O partial thyroidectomy H/O tubal ligation Hx of tonsillectomy Family History Family History Father Family history of Parkinson's disease Social History Social History Smoking status: Current every day smoker Tobacco type: e-cigarettes/vaping Smoking end date: 05/12/01 Alcohol intake: current Substance use: current Substance use type: crack/cocaine Other substance usage details: Daily Last use: takes hydrocodone for chronic back pain Living arrangements: with family Gender identity (if verbalized by the patient): Female Spiritual care concerns: No Comments At time of signature, I have reviewed and agree with nursing past medical, surgical, social and family history unless otherwise noted. Please see nursing chart for further information. There is no relevant family history pertinent to the presenting complaint Exam Narrative: GENERAL: mildly ill-appearing, in no acute distress. Tearful. EYES: EOMI. No redness or drainage. Conjunctivae normal. ENT: Mucous membranes pink and moist. No rhinorrhea. TMs normal bilaterally; right with effusion. Throat normal. Uvula midline. NECK: Normal AROM. Supple. CHEST: No respiratory distress. Coarse throughout all avelar. Frequent moist drum drier cough. Speaks full sentences HEART: Regular rate and rhythm.
[2023-07-02 11:09] VITALS: BP 128/83; PULSE 120; RESP 20; TEMP 36.5; O2SAT 98
== END 2023-07-02 12:00 | disposition home or self-care (01) ==
PROVIDERS: Emergency Provider Nurse Practitioner Family; PCP Emergency Medicine
DX: J40 Bronchitis, not specified as acute or chronic (principal); H65.01 Acute serous otitis media, right ear; F17.290 Nicotine dependence, other tobacco product, uncomplicated; F14.90 Cocaine use, unspecified, uncomplicated; Z86.16 Personal history of COVID-19; F31.9 Bipolar disorder, unspecified
CPT/HCPCS: 71046; 99213; G0463

== ENCOUNTER 2023-08-18 11:54 | Emergency (ER) | payer OTHER, SELFPAY ==
[2023-08-18 12:13] VITALS: BP 136/84; PULSE 82; RESP 16; TEMP 36.6; O2SAT 100
--- NOTE | 2023-08-18 12:25 | ED.FEMALEGU ---
HPI - Female Genitourinary General Chief complaint: Urogenital-Female Stated complaint: UTI Symptoms Time Seen by Provider: 08/18/23 12:16 Source: patient and RN notes reviewed Mode of arrival: ambulatory Limitations: no limitations History of Present Illness HPI Narrative: 53-year-old female presents concern for 3 day history of urine frequency, dysuria. Reports nausea without vomiting. She denies fever, body aches, chills, sweats, back pain. Reports suprapubic pain MD elicited complaint: UTI Related Data Home Medications Medication Instructions Recorded Confirmed semaglutide 1 mg/dose (4 mg/3 mL) 1 mg subcut WEEKLY 07/01/22 07/02/23 subcutaneous pen injector (Ozempic) rosuvastatin 20 mg tablet 20 mg PO DAILY 04/01/23 07/02/23 syringe with needle 3 mL 18 x 1 04/01/23 04/01/2305/13 (BD Luer-Mulu Syringe) testosterone cypionate 200 mg/mL 50 mg IM WEEKLY 04/01/23 07/02/23 intramuscular oil trazodone 50 mg tablet 50 mg PO HS Insomnia 04/01/23 07/02/23 estradiol cypionate 5 mg/mL 0.5 mg IM DIRECTED 05/31/23 07/02/23 intramuscular oil (Depo-Estradiol) hydrocodone 5 mg-acetaminophen 325 5 tablet DIRECTED 05/31/23 07/02/23 mg tablet lumateperone 10.5 mg capsule 10.5 mg PO DIRECTED 05/31/23 07/02/23 (Caplyta) omeprazole 20 mg capsule,delayed 20 mg DIRECTED 05/31/23 07/02/23 release Allergies Allergy/AdvReac Type Severity Reaction Status Date / Time Sulfa (Sulfonamide AdvReac Mild Rash Verified 08/18/23 12:15 Antibiotics) Review of Systems Review of Systems: CONSTITUTIONAL: Denies malaise, chills, sweats, or fever. CARDIOVASCULAR: Denies chest pain, palpitations, or edema. RESPIRATORY: Denies cough or dyspnea. GASTROINTESTINAL: Denies abdominal pain, nausea, vomiting, diarrhea GENITOURINARY: Reports dysuria, frequency, urgency, suprapubic pain. Denies flank pain or hematuria. SKIN: Denies rash or itching. MUSCULOSKELETAL: Denies back pain or myalgia. All systems reviewed & are unremarkable except as noted in HPI and below PMFSH Past Medical History Medical History Abnormal CT of the abdomen Bipolar 1 disorder Bronchitis Constipation COVID-28 February 2020 Diabetes states is prediabetic Pneumonia due to COVID-19 virus Vomiting Surgical History Surgical History H/O partial thyroidectomy H/O tubal ligation Hx of tonsillectomy Family History Family History Father Family history of Parkinson's disease Social History Social History Smoking status: Current every day smoker Tobacco type: e-cigarettes/vaping Smoking end date: 05/12/01 Alcohol intake: current Substance use: current Substance use type: crack/cocaine Other substance usage details: Daily Last use: takes hydrocodone for chronic back pain Living arrangements: with family Gender identity (if verbalized by the patient): Female Spiritual care concerns: No Comments At time of signature, agree with nursing past medical, surgical, social and family history. There is no relevant family history pertinent to the presenting complaint Exam Narrative: GENERAL: Well-appearing, well-nourished, and in no acute distress. HEAD: Normocephalic. EYES: PERRLA, conjunctivae clear. NECK: Supple. No lymphadenopathy CHEST: Clear to auscultation. No respiratory distress. HEART: Regular rate and rhythm. ABDOMEN: Soft, nontender upon palpation, nondistended, normal active bowel sounds, no palpable or pulsatile masses, no guarding. No CVA tenderness SKIN: Warm, dry, no rash. NEURO: Alert and oriented x3. PSYCH: Normal mood and affect Course Course Emergency Course: Patient is aware of diagnosis, understands and agrees to treatment plan. Anticipatory guidance given. Patient agre
== END 2023-08-18 12:44 | disposition home or self-care (01) ==
PROVIDERS: Emergency Provider Nurse Practitioner; PCP Emergency Medicine
DX: R30.0 Dysuria (principal); R35.0 Frequency of micturition; R73.03 Prediabetes; Z86.16 Personal history of COVID-19; Z90.89 Acquired absence of other organs
CPT/HCPCS: 81003; 87077; 87086; 87186; 99213; G0463

== ENCOUNTER 2023-11-19 08:02 | Outpatient (CLI) | payer OTHER, SELFPAY ==
[2023-11-19 10:45] LABS: Anion Gap 11 mmol/L (4-12); Blood Urea Nitrogen 8 mg/dL (7-17); Calcium 9.4 mg/dL (8.4-10.2); Carbon Dioxide 25 mmol/L (22-30); Chloride 104 mmol/L (98-107); Estimated Glomerular Filt Rate > 60; Glucose 106 mg/dL (65-110); Potassium 4.4 mmol/L (3.4-5.0); Sodium 140 mmol/L (137-145)
== END 2023-11-19 08:03 | disposition home or self-care (01) ==
PROVIDERS: Anesthesiology; Visit Provider Obstetrics & Gynecology
DX: Z01.818 Encounter for other preprocedural examination (principal); E11.9 Type 2 diabetes mellitus without complications
CPT/HCPCS: 36415; 80048

== ENCOUNTER 2023-11-24 00:06 | Day surgery (SDC) | payer OTHER, SELFPAY ==
--- NOTE | 2023-11-12 10:37 | SUR.PREOP ---
Report to the Outpatient Waiting Room, entrance under the green pavilion located off [facility], at time 1130 on date 11/24/23. Planned Procedure Time: 1330. Time changes happen often and if your time is changed the preop area will call you the afternoon before. - You and your visitor will be asked to self-screen and do not enter if you have any COVID symptoms. - A mask is optional within the hospital at this time. Patients may have clear liquids (water, carbonated beverages, clear teas, apple juice) until 3 hours prior to surgery with a maximum of 20 ounces. - NO CLEAR LIQUIDS AFTER 1030 - No food from midnight until time of surgery - Infants may have breast milk until 4 hours before surgery, formula 6 hours prior to surgery. - Children will be allowed to drink immediately following surgery. If applicable, please bring a bottle or sippy cup to assist with drinking. Juice, water, soda, and popsicles are readily available. For infants on formula, please bring formula the day of surgery. Pacifiers are allowed. Take the following medications with a SIP of water the morning of surgery: LEVOTHYROXINE DO NOT STOP ANY OF YOUR OTHER PRESCRIPTION MEDICATIONS PRIOR TO SURGERY ?EXCEPT THE FOLLOWING Medications to discontinue per physician Date to take last dose Please no make-up, nail setswana, hairspray, perfume, deodorant, or body powder the day of surgery. No jewelry (including any body piercings) or valuables the day of surgery, leave them at home. Please take a shower or bath the night before, or the morning of, surgery with an antibacterial soap. Wear comfortable, loose fitting clothing. Children are encouraged to wear pajamas. - Jewelry must be removed prior to entering the operating room. Rings and piercings that are not removed may be cut off. - The hospital will not accept responsibility for valuables. - Please leave all valuables, including medications, at home the day of surgery. If you are going home after surgery, a licensed boom truck driver must drive you home. - NO public transportation without another adult if you receive anesthesia. - We recommend that an adult stay with you for 24 hours following discharge. - We also recommend that you do not drive, make important decision, drink alcoholic beverages, or take any drugs that were not prescribed by your health care provider for at least 24 hours after your discharge time. For Pediatric surgeries, we recommend two adults accompany the child home. Follow any additional instructions given to you from your surgeon. If you or anyone in your household have experienced Covid symptoms in the past week, please notify your surgeon or the nurse liaison at the phone number below for possible testing. Telephone instructions given to MAXIMO BARNETT and asked if any additional questions and then verbalized understanding. Patient advised to call surgeon office or pre surgery nurse liaison [phone] if any additional questions.
[2023-11-12 10:52] VITALS: BMI 31.6
--- NOTE | 2023-11-24 10:32 | PM.IMHP ---
H&P: HPI History of Present Illness Date/Time: 11/24/23 10:32 Chief Complaint: postmenopausal bleeding Narrative: Patient is a 53 year old female who presents for hysteroscopy with D&C indicated for postmenopausal bleeding. She has had two episodes of bleeding since August. She is on menopausal hormone therapy with estrogen and testosterone for years, however was not on progesterone until August. She denies family hx of cancer. She denies changes to her medications. She denies abdominal pain, nausea, vomiting, fevers or chills. Review of Systems Review of Systems: All systems reviewed & are unremarkable except as noted in HPI and below PMFSH Past Medical History Medical History Abnormal CT of the abdomen Bipolar 1 disorder Bronchitis Constipation COVID-28 February 2020 Diabetes states is prediabetic Pneumonia due to COVID-19 virus Vomiting Surgical History Surgical History H/O partial thyroidectomy H/O tubal ligation Hx of tonsillectomy Family History Family History Father Family history of Parkinson's disease Social History Social History Years smoked: 3 Smoking status: Current every day smoker Tobacco type: e-cigarettes/vaping Smoking end date: 05/12/01 Additional smoking assessment comments: VAPING FOR 8 YEARS Alcohol intake: current Substance use: former Substance use type: crack/cocaine Other substance usage details: Daily Last use: takes hydrocodone for chronic back pain Living arrangements: with family Gender identity (if verbalized by the patient): Female Spiritual care concerns: No Meds Home Medications and Allergies Home Medications Medication Instructions Recorded Confirmed Type semaglutide 1 mg/dose (4 mg/3 mL) 1 mg subcut WEEKLY 07/01/22 11/12/23 History subcutaneous pen injector (SkyBitzempic) rosuvastatin 20 mg tablet 20 mg PO HS 04/01/23 11/12/23 History syringe with needle 3 mL 18 x 1 04/01/23 04/01/23 History 1/2 (BD Luer-Mulu Syringe) testosterone cypionate 200 mg/mL 50 mg IM WEEKLY 04/01/23 11/12/23 History intramuscular oil trazodone 50 mg tablet 50 mg PO HS PRN Insomnia 04/01/23 11/12/23 History estradiol cypionate 5 mg/mL 0.5 mg IM DIRECTED 05/31/23 11/12/23 History intramuscular oil (Depo-Estradiol) hydrocodone 5 mg-acetaminophen 325 5 tablet DIRECTED PRN Pain 05/31/23 11/12/23 History mg tablet lumateperone 10.5 mg capsule 10.5 mg PO DIRECTED 05/31/23 11/12/23 History (Caplyta) omeprazole 20 mg capsule,delayed 40 mg PO DAILY 05/31/23 11/12/23 History release levothyroxine 50 mcg tablet 50 mcg PO DAILY 11/12/23 11/12/23 History progesterone micronized 100 mg 100 mg PO DAILY 11/12/23 11/12/23 History capsule spironolactone 50 mg tablet 50 mg PO DAILY 11/12/23 11/12/23 History Allergies Allergy/AdvReac Type Severity Reaction Status Date / Time Sulfa (Sulfonamide AdvReac Mild Itching Verified 11/12/23 10:18 Antibiotics) Exam Const: General: comfortable and no acute distress HENMT: Mouth: Yes moist mucous membranes Resp: Effort & Inspection: normal respiratory effort Cardio: Rate: regular rate Extrem: General: normal to inspection Psych: Mental Status: mental status grossly normal Assessment and Plan Assessment and plan (1) Postmenopausal bleeding: Code(s): N95.0 - Postmenopausal bleeding Status: Acute Assessment and Plan: - 2 episodes since August - on estrogen and testosterone therapy, recently started progesterone in 08/2023 - Pelvic US demonstrates thickened and heterogenous endometrium - discussed in office endometrial biopsy vs hysteroscopy D&C for complete sampling including risks and benefits of each; patient desires hysteroscopy and D&C
--- NOTE | 2023-11-24 10:44 | WPDHPUPDATE1 ---
History and Physical Update Update Date/Time: 11/24/23 10:44 History and Physical has been reviewed, including an updated exam of the patient. There are NO changes in the patient's condition. Risks, benefits, and alternatives have been discussed and questions answered. Patient agrees to proceed with procedure.
[2023-11-24] MEDS: ACETAMINOPHEN 500 MG TABLET 1000 MG PO (10:55)
[2023-11-24 11:01] VITALS: BP 110/63; PULSE 79; RESP 18; TEMP 36.1; O2SAT 98
[2023-11-24] MEDS: LACTATED RINGERS 1,000 ML 30 ML IV CONT (11:05)
[2023-11-24 11:14] LABS: Glucose Point of Care 95 mg/dl (65-105)
--- NOTE | 2023-11-24 11:23 | WPDANESEPPF ---
Anes - Initial Pre Proc Eval Procedure: Operation Date: 11/24/23 13:30 Proposed Procedures p Hysteroscopy Dilation and Curettage - Dragan Galeas MD Date/Time: 11/24/23 11:23 Surgeon: Dragan Galeas MD Pre Op Diagnosis: Post Menopausal Bleeding N95.0 Patient Data Age: 53 Gender: F Height: 1.63 m Weight: 83.5 kg Allergies Allergy/AdvReac Type Severity Reaction Status Date / Time Sulfa (Sulfonamide AdvReac Mild Itching Verified 11/12/23 10:18 Antibiotics) Home Medications Medication Instructions Recorded Confirmed Type semaglutide 1 mg/dose (4 mg/3 mL) 1 mg subcut WEEKLY 07/01/22 11/12/23 History subcutaneous pen injector (Ozempic) rosuvastatin 20 mg tablet 20 mg PO HS 04/01/23 11/12/23 History syringe with needle 3 mL 18 x 1 04/01/23 04/01/23 History 1/2 (BD Luer-Mulu Syringe) testosterone cypionate 200 mg/mL 50 mg IM WEEKLY 04/01/23 11/12/23 History intramuscular oil trazodone 50 mg tablet 50 mg PO HS PRN Insomnia 04/01/23 11/12/23 History estradiol cypionate 5 mg/mL 0.5 mg IM DIRECTED 05/31/23 11/12/23 History intramuscular oil (Depo-Estradiol) hydrocodone 5 mg-acetaminophen 325 5 tablet DIRECTED PRN Pain 05/31/23 11/12/23 History mg tablet lumateperone 10.5 mg capsule 10.5 mg PO DIRECTED 05/31/23 11/12/23 History (Caplyta) omeprazole 20 mg capsule,delayed 40 mg PO DAILY 05/31/23 11/12/23 History release levothyroxine 50 mcg tablet 50 mcg PO DAILY 11/12/23 11/12/23 History progesterone micronized 100 mg 100 mg PO DAILY 11/12/23 11/12/23 History capsule spironolactone 50 mg tablet 50 mg PO DAILY 11/12/23 11/12/23 History Laboratory Tests 11/24/23 11:08 POC Capillary Glucose 95 mg/dl (65-105) Patient hx anesthesia problems: none Family hx anesthesia problems: none Results Review: All pre-operative results and documents have been reviewed as part of the pre-operative evaluation. [facility] Past Medical History Medical History Abnormal CT of the abdomen Bipolar 1 disorder Bronchitis Constipation COVID-28 February 2020 Diabetes states is prediabetic Pneumonia due to COVID-19 virus Vomiting Surgical History Surgical History H/O partial thyroidectomy H/O tubal ligation Hx of tonsillectomy Family History Family History Father Family history of Parkinson's disease Social History Social History Years smoked: 3 Smoking status: Current every day smoker Tobacco type: e-cigarettes/vaping Smoking end date: 05/12/01 Additional smoking assessment comments: VAPING FOR 8 YEARS Alcohol intake: current Substance use: former Substance use type: crack/cocaine Other substance usage details: Daily Last use: takes hydrocodone for chronic back pain Living arrangements: with family Gender identity (if verbalized by the patient): Female Spiritual care concerns: No Anes - Eval Final PreProcedure Day of Procedure 11/24/23 11:23 Patient weight: obese Heart: regular rate and rhythm Lungs: clear to auscultation Airway: Mallampati scale class II Neurological: alert and oriented Last oral intake: >/= 8 hours ASA classification: III Emergent: no Anesthetic plan: proceed Anesthesia type and monitoring: general GIVS and standard monitoring Results Review: All pre-operative results and documents have been reviewed as part of the pre-operative evaluation. Informed Consent: The patient's anesthetic plan and its attendant risks and benefits were discussed with the patient/family/POA. Questions were solicited and answers provided to the satisfaction of the patient/family/POA.
[2023-11-24] MEDS: LIDO 1%/EPINEPHRINE 1:100,000 50 ML VIAL 10 ML INFILTRATE (11:33)
[2023-11-24] MEDS: KETOROLAC 15 MG/ML VIAL (*BKC) IV PUSH (11:44)
[2023-11-24 11:47] VITALS: BP 107/62; PULSE 68; RESP 14; O2SAT 100
--- NOTE | 2023-11-24 11:48 | W.PM.PROC2 ---
Procedure Note - Detailed Date of Procedure 11/24/23 Pre-op Diagnosis Post Menopausal Bleeding Post-op Diagnosis Same Procedure Performed hysteroscopy D&C Surgeon Drgaan Galeas MD Anesthesia MAC Indications postmenopausal bleeding on HRT Findings atrophic appearing endometrial cavity; some scarring between anterior and posterior gomez of the endometrium in the right upper cavity Description of Procedure The patient was then taken to the operating room with IVFs running. She was placed in the dorsal supine position where she received MAC without any difficulty.?? The patient was placed in the dorsal lithotomy position using alicia stirrups. EUA revealed the above findings. She was then prepped and draped in a normal sterile fashion. A time-out procedure was performed and all members of the OR team agreed on the patient and plan. A bivalved speculum was then inserted into the patient's vagina.? The anterior lip of the cervix was grasped with a single tooth tenaculum. At this point, the hysteroscope was then inserted into the uterine cavity. Saline was used as the distension medium. The above findings were noted. Both tubal ostia were visualized and pictures were taken.? The hysteroscope was then removed. A specimen was taken using hysteroscopic graspers from the area of scarring in the right upper cavity. The cervical os was dilated using shaista dilators.? At this point, utilizing a medium sized endometrial curette, a sharp curettage was performed and the specimen sent to pathology.? The tenaculum was removed; the anterior lip of the cervix was hemostatic.The speculum was then removed. The patient tolerated the procedure well.? Sponge, lap, needle, and instrument counts were correct X2.? The patient was taken out of the dorsal lithotomy position and awakened from anesthesia and taken to the recovery room in stable condition. Estimated Blood Loss 10 Pathology Yes Complications No immediate complications Condition Stable Disposition Same day
[2023-11-24 11:53] LABS: Glucose Point of Care 108 mg/dl (65-105)
[2023-11-24 12:15] VITALS: BP 110/51; PULSE 72; RESP 16
[2023-11-24] MEDS: oxyCODONE HCL (*CRX) 5 MG TAB IR PO (12:25)
[2023-11-24 12:45] VITALS: BP 114/81; PULSE 71; RESP 16
--- NOTE | 2023-11-24 13:01 | SUR.PHASEII ---
When patient stood to get dressed she felt a gush of fluid come out of her Vagina. Fluid is light pink in color. Patient reports no cramping. Dr. Galeas was notified stated it was normal after the hysteroscopy and that patient was still okay to be discharged.
== END 2023-11-24 13:03 | disposition home or self-care (01) ==
PROVIDERS: Visit Provider Obstetrics & Gynecology
PROC: 0U5B8ZZ Destruction of Endometrium, Via Natural or Artificial Opening Endoscopic (ICD-10-PCS; CPT 58563; principal; 2023-11-24 13:30)
DX: N95.0 Postmenopausal bleeding (principal); N87.9 Dysplasia of cervix uteri, unspecified; R73.03 Prediabetes; E89.0 Postprocedural hypothyroidism; F31.9 Bipolar disorder, unspecified; F17.290 Nicotine dependence, other tobacco product, uncomplicated; Z79.890 Hormone replacement therapy; Z79.85 Long-term (current) use of injectable non-insulin antidiabetic drugs; Z79.891 Long term (current) use of opiate analgesic; E66.9 Obesity, unspecified; Z68.31 Body mass index [BMI] 31.0-31.9, adult
CPT/HCPCS: 58558; 36415; 80048; 82948; 88305; 88342; A9270; J1885; J2250; J2405; J2704; J3010; J7120

== ENCOUNTER 2024-01-08 11:39 | Emergency (ER) | payer OTHER, SELFPAY ==
--- NOTE | 2024-01-08 11:44 | ED.FEMALEGU ---
HPI - Female Genitourinary General Chief complaint: Urogenital-Female Stated complaint: uti symptoms Time Seen by Provider: 01/08/24 11:43 Source: patient Mode of arrival: ambulatory Limitations: no limitations History of Present Illness HPI Narrative: Hope is a 53-year-old female patient presenting to the clinic today with complaints of possible urinary tract infection. She reports over the past 4 days she has had burning with urination, frequency, urgency. States she has been taking azo for her symptoms and this has helped but is concerned that she may have a urinary tract infection. Has taken old antibiotic prescription and this did not help. Related Data Home Medications Medication Instructions Recorded Confirmed semaglutide 1 mg/dose (4 mg/3 mL) 1 mg subcut WEEKLY 07/01/22 01/08/24 subcutaneous pen injector ([employer]) syringe with needle 3 mL 18 x 1 04/01/23 01/08/2405/13 (BD Luer-Mulu Syringe) testosterone cypionate 200 mg/mL 50 mg IM WEEKLY 04/01/23 01/08/24 intramuscular oil trazodone 50 mg tablet 50 mg PO HS PRN Insomnia 04/01/23 01/08/24 estradiol cypionate 5 mg/mL 0.5 mg IM DIRECTED 05/31/23 01/08/24 intramuscular oil (Depo-Estradiol) hydrocodone 5 mg-acetaminophen 325 5 tablet DIRECTED PRN Pain 05/31/23 01/08/24 mg tablet lumateperone 10.5 mg capsule 10.5 mg PO DIRECTED 05/31/23 01/08/24 (Caplyta) omeprazole 20 mg capsule,delayed 40 mg PO DAILY 05/31/23 01/08/24 release levothyroxine 50 mcg tablet 50 mcg PO DAILY 11/12/23 01/08/24 progesterone micronized 100 mg 100 mg PO DAILY 11/12/23 01/08/24 capsule spironolactone 50 mg tablet 50 mg PO DAILY 11/12/23 01/08/24 Allergies Allergy/AdvReac Type Severity Reaction Status Date / Time Sulfa (Sulfonamide AdvReac Mild Itching Verified 11/24/23 11:25 Antibiotics) Review of Systems Review of Systems: Pertinent positives per HPI. Patient denies any fever, chills, rash, headache, visual changes, dizziness, cough, runny nose, sore throat, shortness of breath, chest pain, palpitations, nausea, vomiting, diarrhea, constipation, abdominal pain PMFSH Past Medical History Medical History Abnormal CT of the abdomen Bipolar 1 disorder Bronchitis Constipation COVID-28 February 2020 Diabetes states is prediabetic Pneumonia due to COVID-19 virus Vomiting Surgical History Surgical History H/O partial thyroidectomy H/O tubal ligation Hx of tonsillectomy Family History Family History Father Family history of Parkinson's disease Social History Social History Years smoked: 3 Smoking status: Current every day smoker Tobacco type: e-cigarettes/vaping Smoking end date: 05/12/01 Additional smoking assessment comments: VAPING FOR 8 YEARS Alcohol intake: current Substance use: former Substance use type: crack/cocaine Other substance usage details: Daily Last use: takes hydrocodone for chronic back pain Living arrangements: with family Gender identity (if verbalized by the patient): Female Spiritual care concerns: No Comments At the time of my signature, I reviewed and agree with the nursing past medical, surgical, social, and family history. There is no relevant family history pertinent to the patient complaint. Exam Narrative: General: Well-developed, well nourished, in no apparent distress. Head: Normocephalic, atraumatic. Cardio: Regular rate and rhythm, s1 and s2 normal, no murmur appreciated. Resp: Clear to auscultation bilaterally, no rhonchi, rales, wheezing or rubs. Abdomen: Soft, pliable, bowel sounds present in all quadrants, non-tender to palpation, no organomegly, no CVAT tenderness. Course Course Emergency Course: Portions of this record may
[2024-01-08 11:49] VITALS: BP 105/66; PULSE 89; RESP 18; TEMP 36.6; O2SAT 97
[2024-01-08 11:57] LABS: EDUAAPPEAR Cloudy; EDUABILI 1+; EDUABLOOD 1+; EDUACOLOR1 Orange; EDUAGLUCOSE 1+; EDUAKETONE Trace; EDUALEUKO 3+; EDUANITRATE Positive; EDUAPROTEIN 2+
== END 2024-01-08 12:02 | disposition home or self-care (01) ==
PROVIDERS: Emergency Provider Nurse Practitioner Family
DX: N30.01 Acute cystitis with hematuria (principal); F17.290 Nicotine dependence, other tobacco product, uncomplicated; R73.03 Prediabetes; Z86.16 Personal history of COVID-19
CPT/HCPCS: 81003; 87086; 99213; G0463

== ENCOUNTER 2024-01-27 10:22 | Emergency (ER) | payer OTHER, SELFPAY ==
[2024-01-27 10:38] VITALS: BP 108/52; PULSE 82; RESP 16; TEMP 36.7; O2SAT 100
--- NOTE | 2024-01-27 10:52 | ED.DIZZY ---
HPI - Dizziness General Chief Complaint: Dizziness Stated Complaint: vertigo Source: patient and RN notes reviewed Mode of arrival: ambulatory Limitations: no limitations History of Present Illness HPI Narrative: 53 y/o female presented for c/o dizziness. Onset yesterday. States she feels off balance, had difficulty walking yesterday but it is somewhat better today. Endorses nausea. Symptoms worsen with any change in movement. Attempted the canalith repositioning maneuver at home and used hydrogen peroxide in the ears. Denies cp, palpitations, vomiting, URI symptoms, headache, ear pain or fever. Has not been taking levothyroxine for one month. Related Data Home Medications Medication Instructions Recorded Confirmed semaglutide 1 mg/dose (4 mg/3 mL) 1 mg subcut WEEKLY 07/01/22 01/27/24 subcutaneous pen injector ([facility]) syringe with needle 3 mL 18 x 1 04/01/23 01/27/2405/13 (BD Luer-Mulu Syringe) testosterone cypionate 200 mg/mL 50 mg IM WEEKLY 04/01/23 01/27/24 intramuscular oil trazodone 50 mg tablet 50 mg PO HS PRN Insomnia 04/01/23 01/27/24 estradiol cypionate 5 mg/mL 0.5 mg IM DIRECTED 05/31/23 01/27/24 intramuscular oil (Depo-Estradiol) hydrocodone 5 mg-acetaminophen 325 5 tablet DIRECTED PRN Pain 05/31/23 01/27/24 mg tablet lumateperone 10.5 mg capsule 10.5 mg PO DIRECTED 05/31/23 01/27/24 (Caplyta) omeprazole 20 mg capsule,delayed 40 mg PO DAILY 05/31/23 01/27/24 release levothyroxine 50 mcg tablet 50 mcg PO DAILY 11/12/23 01/27/24 progesterone micronized 100 mg 100 mg PO DAILY 11/12/23 01/27/24 capsule spironolactone 50 mg tablet 50 mg PO DAILY 11/12/23 01/27/24 Allergies Allergy/AdvReac Type Severity Reaction Status Date / Time Sulfa (Sulfonamide AdvReac Mild Itching Verified 11/24/23 11:25 Antibiotics) Review of Systems Review of Systems: CONSTITUTIONAL: Denies body aches, fever, chills, or sweats. EYES: Denies visual changes, redness, or discharge. ENT: Denies rhinorrhea, congestion, sore throat, or otalgia. CARDIOVASCULAR: Denies chest pain, palpitations, or edema. RESPIRATORY: Denies cough or dyspnea. GASTROINTESTINAL: Reports nausea Denies abdominal pain, vomiting, or diarrhea. MUSCULOSKELETAL: Denies back pain, joint pain, or myalgia. NEUROLOGIC: Endorses dizziness denies headache, numbness, tingling, or weakness, All systems reviewed & are unremarkable except as noted in HPI and below PMFSH Past Medical History Medical History Abnormal CT of the abdomen Bipolar 1 disorder Bronchitis Constipation COVID-28 February 2020 Diabetes states is prediabetic Pneumonia due to COVID-19 virus Vomiting Surgical History Surgical History H/O partial thyroidectomy H/O tubal ligation Hx of tonsillectomy Family History Family History Father Family history of Parkinson's disease Social History Social History Years smoked: 3 Smoking status: Current every day smoker Tobacco type: e-cigarettes/vaping Smoking end date: 05/12/01 Additional smoking assessment comments: VAPING FOR 8 YEARS Alcohol intake: current Substance use: former Substance use type: crack/cocaine Other substance usage details: Daily Last use: takes hydrocodone for chronic back pain Living arrangements: with family Gender identity (if verbalized by the patient): Female Spiritual care concerns: No Comments At time of signature, I have reviewed and agree with nursing past medical, surgical, social and family history unless otherwise noted. Please see nursing chart for further information. There is no relevant family history pertinent to the presenting complaint Exam Narrative: GENERAL: Well-appearing EYES: PERRLA, EOMI. ENT: Mucous mem
[2024-01-27] MEDS: MECLIZINE HCL 25 MG TABLET PO (11:12)
== END 2024-01-27 11:38 | disposition home or self-care (01) ==
PROVIDERS: Emergency Provider Nurse Practitioner Family; PCP Nurse Practitioner Family
DX: H81.11 Benign paroxysmal vertigo, right ear (principal); F31.9 Bipolar disorder, unspecified; F17.290 Nicotine dependence, other tobacco product, uncomplicated
CPT/HCPCS: 99213; A9270; G0463

== ENCOUNTER 2024-01-29 08:44 | Observation (INO) | payer OTHER, SELFPAY ==
--- NOTE | ~2024-01-29 | CT_ITS ---
EXAMINATION: CTA brain carotid DATE: 01/29/2024 09:45 INDICATION: Vertigo. TECHNIQUE: Computed tomographic angiography (CTA) of the head was performed without and with 100 mL O mnipaque-350 intravenous contrast. CTA of the neck was performed with intravenous contrast. Automated exposure control and iterative reconstruction technique were employed. The dose-length product was 1 630.49 mGy-cm. Maximum intensity projection and volume rendered 3D-reconstructions were created by ralph cutler technologist on a separate workstation. COMPARISON: None. FINDINGS: HEAD CTA: There is no intracranial hemorrhage, acute infarction, or abnormal intracranial mass lesion . The ventricles are normal in size. The paranasal sinuses are clear. The orbits are normal. The mast oid air cells are normal. The vertebral arteries are codominant. There is no significant stenosis of basilar artery or the posterior cerebral arteries. The posterior communicating arteries are normal. T here is no significant stenosis of the intracranial internal carotid arteries or anterior or middle c erebral arteries. Anterior communicating artery is normal. There is no aneurysm. NECK CTA: There are no pathologically enlarged lymph nodes. There is no significant stenosis of the v ertebral arteries. There is mild plaque in the proximal internal carotid arteries. There is 0% stenos is of the proximal right internal carotid artery relative to normal distal artery lumen diameter (NOLBERTO CET criteria). There is 0% stenosis of the proximal left internal carotid artery relative to normal d istal artery lumen diameter. There is mild cervical spondylosis. IMPRESSION: 1. Normal brain. No aneurysm or significant intracranial arterial stenosis. 2. 0% stenosis of the proximal internal carotid arteries relative to normal distal artery lumen diame ters (NASCET criteria). Reviewed, dictated and finalized at location A. IMPRESSION: 1. Normal brain. No aneurysm or significant intracranial arterial stenosis. 2. 0% stenosis of the proximal internal carotid arteries relative to normal dis sybil artery lumen diameters (NASCET criteria).
--- NOTE | ~2024-01-29 | XR_ITS ---
EXAMINATION: XR chest 2V DATE: 01/29/2024 09:34 INDICATION: Dizziness TECHNIQUE: PA and lateral views of the chest were obtained. COMPARISON: Chest radiograph dated 07/02/2023 FINDINGS: The lungs remain clear with no focal airspace opacities, pulmonary edema, pleural effusion or pneumot horax. The cardiomediastinal silhouette is normal. Mild thoracic spondylosis. IMPRESSION: 1. No acute cardiopulmonary disease. Reviewed, dictated and finalized at location B.
--- NOTE | ~2024-01-29 | MR_ITS ---
EXAMINATION: MR brain/brain stem wo con DATE: 01/29/2024 14:29 INDICATION: Vertigo TECHNIQUE: Magnetic resonance imaging (MRI) of the brain and brainstem was performed without intraven ous contrast. Sequences included sagittal and axial T1-weighted SE, axial diffusion-weighted FS SE, a xial 3D SWAN, axial T2-weighted FLAIR, and axial T2-weighted FSE. Apparent diffusion coefficient (ADC ) maps were created. COMPARISON: Brain CT angiogram dated 01/29/2024 FINDINGS: There are no areas of restricted diffusion to suggest acute infarction. No acute intracranial hemorrh age or abnormal intracranial mass lesion. There is prominent signal loss on the SWAN sequence at the central kelly with subtle increased T2 signal which appears to correspond to a spiderlike collection o f tiny contrast-enhanced vessels extending to a central developmental venous anomaly on the prior CT angiogram. There are no intraparenchymal signal abnormalities seen on the other pulse sequences. The ventricles are symmetric and normal in size. There are no abnormal extra-axial fluid collections. Santosh w voids are seen in the cerebral arteries on the T2-weighted sequences consistent with their expected patency. Visualized orbits and soft tissues are unremarkable. IMPRESSION: 1. Central pontine developmental venous anomaly. No acute intracranial process. Reviewed, dictated and finalized at location B.
--- NOTE | 2024-01-29 08:51 | ECG_ITS ---
Test Date: 2024-01-29 08:54:48 Measurements Intervals [place] Rate: 74 P: 43 NH: 157 QRS: 28 QRSD: 82 T: 31 QT: 361 QTc: 401 Interpretive Statements SINUS RHYTHM LOW QRS VOLTAGE IN PRECORDIAL LEADS CANNOT R/O SEPTAL INFARCT, AGE INDETERMINATE BASELINE ARTIFACT- I, II, AVR, AVL, AVF, V1 ABNORMAL ECG No previous ECG available for comparison Electronically Signed On 01-29-2024 09:05:04 CDT by James Lainez D.O.
[2024-01-29 08:52] VITALS: BP 104/92; PULSE 83; RESP 16; TEMP 36.6; O2SAT 100
[2024-01-29 08:56] VITALS: BP 101/69; PULSE 74
[2024-01-29 08:58] VITALS: BP 107/58; PULSE 70
[2024-01-29 09:00] VITALS: BP 101/67; PULSE 74
--- NOTE | 2024-01-29 09:19 | ED.DIZZY ---
HPI - Dizziness General Chief Complaint: Dizziness Stated Complaint: vertigo Time Seen by Provider: 01/29/24 08:57 History of Present Illness HPI Narrative: This is a 53-year-old female with a past medical history significant for prediabetes on Ozempic, ADHD, and benign peripheral vertigo who presents to the emergency department with a chief complaint of persistent vertigo since Friday morning. She states she woke up in feels like everything is on a slanted med she is walking and hitting the gomez are house. States her symptoms are very intermittent in nature but did have a constant sensation of dizziness in the background. Not worse with certain manipulations or movements. She states it feels very similar to last time she had vertigo the severe 9 years prior. This was treated with meclizine and resolved spontaneously. Has never seen an learning disabilities resource teacher or been evaluated with imaging studies for this. Endorses feeling nauseous when the vertigo gets worse but denies any vomiting, headache, vision changes, chest pain, shortness a breath, neuropathy, fever, chills, fatigue. No recent injuries or illnesses. Is able to walk unassisted. Related Data Home Medications Medication Instructions Recorded Confirmed semaglutide 1 mg/dose (4 mg/3 mL) 1 mg subcut WEEKLY 07/01/22 01/29/24 subcutaneous pen injector (Ozempic) syringe with needle 3 mL 18 x 1 04/01/23 01/29/2405/13 (BD Luer-Mulu Syringe) testosterone cypionate 200 mg/mL 50 mg IM [id number] 04/01/23 01/29/24 intramuscular oil trazodone 50 mg tablet 100 mg PO HS Insomnia 04/01/23 01/29/24 estradiol cypionate 5 mg/mL 0.5 mg IM [id number] 05/31/23 01/29/24 intramuscular oil (Depo-Estradiol) hydrocodone 5 mg-acetaminophen 325 0.5 tablet PO DIRECTED PRN Pain 05/31/23 01/29/24 mg tablet lumateperone 10.5 mg capsule 21 mg PO HS 05/31/23 01/29/24 (Caplyta) omeprazole 20 mg capsule,delayed 40 mg PO HS 05/31/23 01/29/24 release levothyroxine 50 mcg tablet 50 mcg PO DAILY 11/12/23 01/29/24 progesterone micronized 100 mg 100 mg PO HS 11/12/23 01/29/24 capsule spironolactone 50 mg tablet 50 mg PO DAILY 11/12/23 01/29/24 cyanocobalamin (vitamin B-12) 1,000 mcg IM WEEKLY 01/29/24 01/29/24 1,000 mcg/mL injection solution Allergies Allergy/AdvReac Type Severity Reaction Status Date / Time Sulfa (Sulfonamide AdvReac Mild Itching Verified 01/29/24 12:59 Antibiotics) Review of Systems Review of Systems: As reviewed [facility]PI [facility] Past Medical History Medical History Abnormal CT of the abdomen Bipolar 1 disorder Bronchitis Constipation COVID-28 February 2020 Diabetes states is prediabetic Pneumonia due to COVID-19 virus Vomiting Surgical History Surgical History H/O partial thyroidectomy H/O tubal ligation Hx of tonsillectomy Family History Family History Father Family history of Parkinson's disease Social History Social History Years smoked: 3 Smoking status: Current every day smoker Tobacco type: e-cigarettes/vaping Smoking end date: 05/12/01 Additional smoking assessment comments: VAPING FOR 8 YEARS Alcohol intake: current Drinks per week: 1 Substance use: former Substance use type: crack/cocaine Other substance usage details: Daily Last use: takes hydrocodone for chronic back pain Do You Feel Safe in your Home?: Yes Lack of Transportation: No Lack of Food: Never True Current Housing: I Have Housing Concerned About Future Housing: No Difficulty Paying Gas/Electric Bills: No Difficulty Paying for Meds: No Currently Unemployed: No Education: High School Diploma/GED Difficulty w/ Childcare or Family Care: No Living arrangements: with family Gender identity (if
[2024-01-29 09:21] LABS: Basophils Percent Auto 0.2 % (0.2-1.2); Eosinophils Absolute Auto 0.2 K/mm3 (0-0.3); Eosinophils Percent Auto 3.7 % (0-4.4); Hematocrit 43.1 % (37.0-47.0); Immature Granulocyte Absolute 0.01 K/mm3 (0.00-0.031); Immature Granulocyte Percent A 0.2 % (0-0.5); Lymphocytes Absolute Auto 2.33 K/mm3 (0.9-3.2); Mean Corpuscular HGB Conc 32.5 g/dl (32-36); Mean Corpuscular Hemoglobin 30.7 pg (26-34); Mean Corpuscular Volume 94.5 fl (80-100); Mean Platelet Volume 8.5 fl (7.4-10.4); Monocytes Absolute Auto 0.4 K/mm3 (0.1-0.6); Monocytes Percent Auto 6.2 % (2.6-8.5); Neutrophils Percent Auto 50.7 % (45.5-73.1); Platelet Count Result 273 k/mm3 (150-375); Red Blood Count 4.56 M/mm3 (4.2-5.4)
[2024-01-29] MEDS: LACTATED RINGERS 1,000 ML 999 ML IV CONT (09:23)
[2024-01-29] MEDS: MECLIZINE HCL 25 MG TABLET 50 MG PO (09:23)
[2024-01-29 09:24] LABS: Add Urine Microscopic? YES; Appearance Urine Clear (Clear); Bilirubin Urine Negative (Negative); Blood Urine Non-Hemolyzed Trace (Negative); Color Urine Yellow (Yellow); Glucose Urine UA Negative (Negative); Ketones Urine Negative (Negative); Leukocyte Esterase Ur Trace LEU/UL (Negative); Nitrate Urine Negative (Negative); Protein Urine Negative (Negative); Squamous Epithelial Cell Urine Few /hpf (Few)
[2024-01-29 09:36] LABS: Alanine Aminotransferase 16 U/L (6-35); Alkaline Phosphatase 55 U/L (38-126); Anion Gap 6 mmol/L (4-12); Aspartate Amino Transferase 23 U/L (14-36); Bilirubin,Total 0.5 mg/dL (0.2-1.3); Blood Urea Nitrogen 8 mg/dL (7-17); Calcium 8.5 mg/dL (8.4-10.2); Carbon Dioxide 27 mmol/L (22-30); Chloride 104 mmol/L (98-107); Estimated CRCL calculation 78 ml/min; Estimated Glomerular Filt Rate > 60; Glucose 99 mg/dL (65-110); Potassium 3.8 mmol/L (3.4-5.0); Sodium 137 mmol/L (137-145)
[2024-01-29 09:40] LABS: Estimated CRCL calculation 62 ml/min; Estimated Glomerular Filt Rate > 60
[2024-01-29 09:46] LABS: Troponin I < 0.012 ng/mL (0.000-0.034)
[2024-01-29 10:33] LABS: Bacteria Urine 2+ /hpf
[2024-01-29] MEDS: LORazepam (*CRX) 1 MG TABLET PO (11:14)
[2024-01-29 11:24] VITALS: BP 120/58; PULSE 62; RESP 18; TEMP 36.8; O2SAT 100
--- NOTE | 2024-01-29 12:09 | PM.IMHP ---
H&P: HPI History of Present Illness Date/Time: 01/29/24 12:09 Chief Complaint: Dizziness Narrative: 53 y/o F presents here with dizziness with PMH of vertigo, bipolar 1, and prediabetic. The patient presents here come home for further evaluation of dizziness. Initially sought evaluation on Friday (01/27/2024) where she reported feeling off-balance which led to difficulty ambulating. Accompanied by nausea and worsened with movements. The patient had attempted canalith repositioning maneuvering at home as well as hydrogen peroxide in her ears. At visit on Friday, Obi maneuver performed which partially alleviated the dizziness. She was prescribed meclizine and discharged home. Returning today due to persistent vertigo since Friday morning (01/25). She further describes the dizziness as the room/herself spinning, constant, aggravated by movements (any)/head movements, and alleviated by holding still. She reports the symptoms are similar to a previous episode of meclizine that was treated with meclizine and had complete resolution. Again accompanied by nausea without vomiting, occurs when dizziness is severe. Denies focal deficits. How long have you been on Ozempic for a little less than a year. No recent changes in dosage, on 0.5 mg (takes it as 0.25 mg spread out by a few days to help alleviate the nausea). She reports she has been off her thyroid medications, patient self-discontinued. Initial VS at presentation: 97.8? F, HR 83, RR 16, 104/92 and 100% on RA. ED workup showed: No leukocytosis, no anemia, no significant electrolyte derangements, creatinine 0.9 and GFR >60, initial troponin negative, and UA suspicious for UTI. CXR showed no acute cardiopulmonary disease. CTA of the head/neck showed normal brain, no aneurysm versus significant intracranial arterial stenosis, and 0% stenosis of the proximal ICAs. Review of Systems Review of Systems: All systems reviewed & are unremarkable except as noted in HPI and below [facility] Past Medical History Medical History Abnormal CT of the abdomen Bipolar 1 disorder Bronchitis Constipation COVID-28 February 2020 Diabetes states is prediabetic Pneumonia due to COVID-19 virus Vomiting Surgical History Surgical History H/O partial thyroidectomy H/O tubal ligation Hx of tonsillectomy Family History Family History Father Family history of Parkinson's disease Social History Social History Years smoked: 3 Smoking status: Current every day smoker Tobacco type: e-cigarettes/vaping Smoking end date: 05/12/01 Additional smoking assessment comments: VAPING FOR 8 YEARS Alcohol intake: current Drinks per week: 1 Substance use: former Substance use type: crack/cocaine Other substance usage details: Daily Last use: takes hydrocodone for chronic back pain Do You Feel Safe in your Home?: Yes Lack of Transportation: No Lack of Food: Never True Current Housing: I Have Housing Concerned About Future Housing: No Difficulty Paying Gas/Electric Bills: No Difficulty Paying for Meds: No Currently Unemployed: No Education: High School Diploma/GED Difficulty w/ Childcare or Family Care: No Living arrangements: with family Gender identity (if verbalized by the patient): Female Spiritual care concerns: No Meds Home Medications and Allergies Home Medications Medication Instructions Recorded Confirmed Type semaglutide 1 mg/dose (4 mg/3 mL) 1 mg subcut WEEKLY 07/01/22 01/29/24 History subcutaneous pen injector (Ozempic) syringe with needle 3 mL 18 x 1 04/01/23 01/29/24 History 1/2 (BD Luer-Mulu Syringe) testosterone cypionate 200 mg/mL 50 mg IM [id number] 04/01/23 01/29/24 History intramuscular oil trazodone
--- NOTE | 2024-01-29 12:54 | ADMGEN ---
This patient, Hope Ferrell, was admitted to [facility] Room 325-01. Patient/family oriented to hospital policies and general routines including ID bracelet, bed and alarms, visiting hours, pain management, procedures, bathroom and other care routines, personal items, smoking policy, room service/diet, and visiting hours. Information on how to activate the Rapid Response Team has been discussed. Patient/Family are encouraged to report perceived risks to care and to ask questions if they do not understand what they are told or what they should do.
[2024-01-29 13:20] LABS: Hemoglobin A1C 5.4 % (<5.7)
--- NOTE | 2024-01-29 13:54 | PC.NURSE ---
RN walked into patient's room and noticed smoke in the air. Patient admitted that she does vape. RN told patient that she cannot vape here and we are a no smoking hospital. Patient verbalizes she understands the policy.
[2024-01-29 14:00] VITALS: BP 119/60; PULSE 62; RESP 14; TEMP 37.1; O2SAT 100
--- NOTE | 2024-01-29 14:08 | PC.NURSE ---
Patient off of unit to MRI
--- NOTE | 2024-01-29 16:58 | PM.DS ---
DS: Admitting Diagnosis Discharge Date 01/29/2024 Admitting Diagnosis Vertigo DS: Discharge Diagnosis Discharge Diagnosis Plan Diagnosis: Vertigo Increase meclizine 25 mg t.i.d. to q.i.d.. 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 No acute intracranial process. Bedside RN spoke with Neurology, okay with following up outpatient. Referral to Neurology placed, call for appointment. Follow urine culture, suspect contamination. DS: Summary Hospital Course Reason for hospitalization: Vertigo Hospital Course: The patient presents here come home for further evaluation of dizziness. Initially sought evaluation on Friday (01/27/2024) where she reported feeling off-balance which led to difficulty ambulating. Accompanied by nausea and worsened with movements. The patient had attempted canalith repositioning maneuvering at home as well as hydrogen peroxide in her ears. At visit on Friday, Obi maneuver performed which partially alleviated the dizziness. She was prescribed meclizine and discharged home. Returning today due to persistent vertigo since Friday morning (01/25). She further describes the dizziness as the room/herself spinning, constant, aggravated by movements (any)/head movements, and alleviated by holding still. She reports the symptoms are similar to a previous episode of meclizine that was treated with meclizine and had complete resolution. Again accompanied by nausea without vomiting, occurs when dizziness is severe. Denies focal deficits. How long have you been on Ozempic for a little less than a year. No recent changes in dosage, on 0.5 mg (takes it as 0.25 mg spread out by a few days to help alleviate the nausea). She reports she has been off her thyroid medications, patient self-discontinued. Patient underwent an brain MRI, showed central pontine developmental venous anomaly. No acute intracranial process. Neurology okay with patient following up outpatient. Patient takes meclizine 25 mg t.i.d., increased to q.i.d.. Encouraged to continue Obi maneuver at home as needed. Status at Discharge Cognitive/behavioral status at discharge: A&O x4 Functional status at discharge: independent ambulation Overall status at discharge: patient is progressing back to baseline Time Spent with Patient Time attestation: Total time spent providing and/or coordinating discharge services: Time spent: Less than 30 minutes Exam Const: General: comfortable and no acute distress Other: , female, nontoxic appearance HENMT: Face/Nose/Sinus: Normal nares present Mouth: Yes moist mucous membranes Eyes: General: appearance normal, both eyes and all related structures Sclera: sclerae normal Pupils: Equal, round and reactive pupils present EOM: EOMs intact bilaterally Other: Horizontal nystagmus with graze directed left and right Resp: Effort & Inspection: normal respiratory effort Auscultation: clear to auscultation bilaterally Cardio: Rate: regular rate Rhythm: regular rhythm Other: S1-S2 present without murmur, rub, ectopy Skin: General skin exam: normal color and no rashes or lesions noted Wounds: no wounds Neuro: Speech: normal speech Motor exam (neuro): 5/5 motor strength present throughout Sensory Exam: normal sensation Other: A&O x4. Result on stag mess with gaze going left and right. Extrem: General: normal to inspection Psych: Mental Status: mental status grossly normal Affect: normal affect Other: Mild agitation. Fair insight and judgment. DS: Data Data Completed and Pending Completed studies during hospitalization: Brain MRI: 1. Central pontine developmental venous anomaly. No acute intracranial process. Pending studies at discharge: Urine culture. Labs on day of discharge: Labs from last 24 hours 01/29/24 01/29/24 09:38 09:08 WBC 6.0 RBC 4.56 Hgb 14.0 Hct 43.1 MCV 94.5 MCH 30.7 MCHC 32.5 RDW 13.0 Plt Count
[2024-01-29 22:10] LABS: Free T4 Free Thyroxine Reflex 0.75 ng/dL (0.78-2.19)
--- NOTE | 2024-02-03 10:20 | PC.NURSE ---
Urine cx shows mixed genital linnea. These superficial linnea are not indicative of an urinary tract infection.
== END 2024-01-29 17:30 | disposition home or self-care (01) ==
LOC: ANHED 09:12 → ANH3MEDSUR 12:31
PROVIDERS: Student in an Organized Health Care Education/Training Program; Admitting Provider Internal Medicine; Emergency Provider Student in an Organized Health Care Education/Training Program; PCP Nurse Practitioner Family; Visit Provider Internal Medicine
DX: R42 Dizziness and giddiness (principal); R73.03 Prediabetes; F31.9 Bipolar disorder, unspecified; F17.290 Nicotine dependence, other tobacco product, uncomplicated; Z79.85 Long-term (current) use of injectable non-insulin antidiabetic drugs; Z79.890 Hormone replacement therapy; Z79.891 Long term (current) use of opiate analgesic
CPT/HCPCS: 36415; 70496; 70498; 70551; 71046; 80053; 81001; 83036; 83735; 84439; 84443; 84484; 85025; 87086; 87088; 93005; 96360; 96361; 99285; A9270; G0378; J7120; Q9967

== ENCOUNTER 2024-06-16 16:19 | Emergency (ER) | payer OTHER, SELFPAY ==
--- OUTSIDE RECORDS SUMMARY | 2024-06-16 16:30 | XMS_ITS | Patient Health Summary ---
Author Organization [facility] Address [address] [place] [address] Care Team Providers Care Health Policy Analyst Name Role Phone Job Fuller APRN-JOSÉ MIGUEL Unavailable [phone] Job Fuller APRN-JOSÉ MIGUEL Primary Care Provider Note from [facility],non-owned Affiliates and Associated Physician Practices is amultiple site organization consisting of ambulatory clinics and hospital sitesin [place], [place], [place] and [place]. This disclosure is being madepursuant to the Care Everywhere program and may not contain all information available regarding this patient. Last updated 18.[facility] Allergies * Allergy(Swelling) -Medium Criticality * Sulfa Drugs(Urticaria) -Medium Criticality Medications * Be aware that medications may not be up to date on this document. Alwaysverify current medications with the patient. * ibuprofen (MOTRIN) 800 MG tablet(Started 01/07/2020) TAKE 1 TABLET BY MOUTH THREE TIMES DAILY WITH FOOD * VRAYLAR 1.5 MG capsule(Started 01/11/2020) Take 1.5 mg by mouth once daily * HYDROcodone-acetaminophen (NORCO) 7.5-325 MG tablet(Started 05/09/2020) TAKE 1 TABLET BY MOUTH TWICE DAILY NEEDED MUST LAST 30 DAYS Social History Tobacco Use Types Packs/Day Years Used Date Smoking Tobacco: Former Cigarettes Q uit: 05/12/2001 Smokeless Tobacco: Never Alcohol Use Standard Drinks/Week Comments Yes 0 (1 standard drink = 0.6 oz pur e alcohol) Sex and Gender Information Value Date Recorded Sex Assigned at Not on file Gender Identity Not on file Sexual Orientation Not on file Last Filed Vital Signs Vital Sign Reading Time Taken Comments Blood Pressure 112/77 07/07/2020 10:58 AM OFFICE SYSTEM ANALYST Pulse 105 07/07/2020 10:58 AM OFFICE SYSTEM ANALYST Temperature 36.1 C (97 F) 07/07/2020 10:58 AM OFFICE SYSTEM ANALYST Respiratory Rate 20 06/02/2020 9:05 AM OFFICE SYSTEM ANALYST Oxygen Saturation 96% 07/07/2020 10:58 AM OFFICE SYSTEM ANALYST Inhaled Oxygen Concentration - - Weight 92.5 kg (204 lb) 07/07/2020 10:58 AM OFFICE SYSTEM ANALYST Height 165.1 cm (5' 5 ) 07/07/2020 10:58 AM OFFICE SYSTEM ANALYST Body Mass Index 33.95 07/07/2020 10:58 AM OFFICE SYSTEM ANALYST Procedures * DERMATOPATHOLOGY(Performed 05/15/2023) * MI ANAL/URINARY MUSCLE STUDY(Performed 07/07/2020) Performed for Urge incontinence of urine, Urinary, incontinence, stress female * MI ELECTRO-UROFLOWMETRY, FIRST(Performed 07/07/2020) Performed for Urge incontinence of urine, Urinary, incontinence, stress female * MI CYSTOMETROGRAM W/CAFE OPERATOR(Performed 07/07/2020) Performed for Urge incontinence of urine, Urinary, incontinence, stress female * URINALYSIS AUTO - POINT OF CARE (AMB) [facility](Performed 02/15/2020) Performed for Urinary, incontinence, stress female * LAB RESULTS ORDER(Performed 02/04/2020) * URINALYSIS AUTO - POINT OF CARE (AMB) [facility](Performed 02/03/2020) Performed for Microscopic hematuria * URINALYSIS W/MICROSCOPIC NO CULTURE(Performed 02/03/2020) * CULTURE URINE(Performed 02/18/2013) * CULTURE URINE(Performed 11/23/2012) * GROSS + MICRO EXAM(Performed 08/26/1998) Results * DERMATOPATHOLOGY (05/15/2023 12:00 AM OFFICE SYSTEM ANALYST) Case Report Dermatopathology Report Case: [id number] Authorizing Provider: Jim Westbrook MD Collected: 05/15/2023 12:00 AM Ordering Location: [facility] DermPath Lab Received: 05/16/2023 12:53 PM Pathologist: Alisia Masters MD Specimen: Skin, left upper chest 2:48 PM OFFICE SYSTEM ANALYST DERMATOPATHOLOGY LABORATORY Final Diagnosis Specimen A. SKIN, left upper chest: HYPERPLASTIC (HYPERTROPHIC) ACTINIC KERATOSIS WITH ACANTHOLYTIC FEATURES (L57.0) (see microscopic description) 2:48 PM [facility] DERMATOPATHOLOGY LABORATORY Clinical History AK vs BCCA. Path#[id number] 2:48 PM [facility] DERMATOPATHOLOGY LABORATORY Gross Description Specimen A: Received is one formalin filled container labeled with the patient's name and designated left upper chest. The specimen consists of a shave biopsy measuring 4x2x1 mm. Jar 0. 2:48 PM [facility] DERMATOPATHOLOGY LABORATORY Microscopic Description Specimen A. SKIN, left upper chest: There is hyperkeratosis alternating with parakeratosis. There is epidermal hyperplasia with disorderly maturation of keratinocytes with nuclear pleomorphism confined to the lower half of the epidermis. Focally there is a suprabasilar cleft with acantholytic cells. Additional deeper sections were obtained and reviewed. 2:48 PM [facility] DERMATOPATHOLOGY LABORATORY Disclaimer An external and internal positive and negative controls are appropriate for the histochemical, immunohistochemical and immunofluorescence stain(s) in this case (if any), except where stated explicitly. The performance characteristics of the stain(s) cited in this report were developed and its performance characteristic determined by the Dermatopathology Laboratory at [facility], directed by Dr. Neeraj Case. These tests need not be, and therefore are not, approved by the [place] Food and Drug Administration. The tests are used for clinical purposes. Billing Codes Specimen Charges Stain Charges 73752 1 2:48 PM [facility] DERMATOPATHOLOGY LABORATORY Embedded Images 2:48 PM [facility] DERMATOPATHOLOGY LABORATORY Pathology/Cytolog y TISSUE SPECIMEN FROM SKIN / Unknown 05/15/2023 05/16/2023 12:53 PM [facility] Jim Westbrook MD LAB - PATHOLOGY/CYTO LOGY ORDERABLES DERMATOPATHOLOGY LABORATORY [facility] - Department of Dermatology [address] [phone] * MI CYSTOMETROGRAM W/CAFE OPERATOR, MI ELECTRO-UROFLOWMETRY, FIRST, MI ANAL/URINARY MUSCLE STUDY (07/07/2020 12:18 PM OFFICE SYSTEM ANALYST) Narrative Fredo Owen MD - 07/07/2020 12:18 PM OFFICE SYSTEM ANALYST Fredo Owen MD 07/07/2020 12:24 PM Urodynamic Results Indication for Procedure: mixed incontinence, urge>stress Noninvasive Uroflow: Qmax: 22 ml/s Qave: 5 ml/s Voided Volume: 88 ml Voiding time: 17 sec PVR: 5 ml Comments: insufficient total volume Cystometrogram: First Sensation: 11 ml Capacity: 409 ml Compliance: normal Instability: yes Urge incontinence: no Stress incontinence: no at 200 ml or at capacity VLPP: n/a DLPP: n/a EMG: normal Comments: Pressure Flow Study: Qmax: 5 ml/s Qave: 2 ml/s Pdet at Qmax: 42 cm H2O EMG: some guarding Residual: 346 ml Comments: pt empties well with uds catheter not in place Pelvic - minimal urethral hypermobility, no collin. Grade I cystocele. No rectocele. No apical descent Findings: hypersensitivity and instability c/w oab. No collin seen. Normal pvr with noninvasive, I suspect her inability to empty with the PFS is more due to being uncomfortable with catheter. Plan: Overactivity/UUI seems to be the bigger problem here. We discussed no intervention, alternative meds, PT, dietary/behavioral change, and third line treatments such as botox or neuromodulation. She is leaning toward interstim. Will consider her options and get back to me. Fredo Owen MD Fredo Owen MD PROCEDURE/MINOR MONTEIRO RGICAL ORDERABLES * URINALYSIS AUTO - POINT OF CARE (AMB) [facility] (02/15/2020) Only the most recent of2 resultswithin the time period is included. Glucose UA neg Bilirubin UA POCT neg Ketones UA POCT neg Specific [place] UA 1.015 Blood Urine POCT 2+ pH UA 7.0 Protein UA + Urobilinogen UA neg Nitrite UA neg WBC UA neg Urine URINE / Unknown 02/15/2020 Fredo Owen MD LAB - POINT OF CAR E ORDERABLES * LAB RESULTS ORDER (02/04/2020 11:18 AM CDT) Narrative 02/04/2020 11:18 AM CDT Ordered by an unspecified provider. Scanned Document LAB - THERAPEUTIC DR RETA MONITORING ORDERABLES * (ABNORMAL) URINALYSIS W/MICROSCOPIC NO CULTURE (02/03/2020) Color UA YELLOW YELLOW [facility] Appearance CLEAR CLEAR [facility] Specific [place] UA 1.008 1.001 - 1.035 [facility] pH UA 5.5 5.0 - 8.0 [facility] Glucose UA NEGATIVE NEGATIVE [facility] Bilirubin UA NEGATIVE NEGATIVE [facility] Ketone UA NEGATIVE NEGATIVE [facility] Blood UA 1+(A) NEGATIVE [facility] Protein UA NEGATIVE NEGATIVE [facility] Nitrite UA NEGATIVE NEGATIVE [facility] Leukocyte UA NEGATIVE NEGATIVE [facility] WBC UA 0-5 < OR = 5 /HPF [facility] RBC UA NONE SEEN < OR = 2 /HPF [facility] Epithelial Cell UA 0-5 < OR = 5 /HPF [facility] Bacteria UA NONE SEEN NONE SEEN /HPF [facility] Hyaline Casts NONE SEEN NONE SEEN /LPF [facility] Comment: Test Performed at: [facility] [id number] LAINA CHACKO MD 02/03/2020 02/04/2020 4:0 9 AM CDT Radha Zazueta CANDY SUPERVISOR-CUSHION GUM APPLICATOR LAB - URINALY SIS ORDERABLES [address] [id number] * CULTURE URINE (02/18/2013 11:32 AM CDT) Only the most recent of2 resultswithin the time period is included. Culture Urine NO GROWTH OF >100 CFU/ML AFTER 24 HOURS. LESS THAN 10,000 CFU/ML OF NORMAL UROGENITAL/ SKIN JENNIFER, AFTER 48 HOURS. [facility] Culture Results [facility] Urine specimen (specimen) 02/18/2013 11:32 AM CDT 02/18/2013 5:50 PM CDT Estuardo Bobby MD LAB - MICROBIOLOGY O RDERABLES [facility] [address] [place] [address] * GROSS + MICRO EXAM (08/26/1998 10:31 AM CDT) Result CASE NUMBER [id number] Comment: ORDERING PHYSICIAN SHAHEEN BATISTA SPECIMEN TYPE Prod of Conception Date 08/28/1998 Physician Shaheen Batista M.D. Gross Description The specimen is received in a single formalin-filled trap container labeled with the patient's name and products of conception . The specimen consists of multiple, holm and dark-red, rubbery, irregularly- shaped tissue fragments which measure 6.0 x 3.0 x 0.5 cm. The entire specimen is submitted in cassettes A, B, and C. GJ/rv Microscopic Exam Sections A, B and C show immature chorionic villi with no evidence of parts. A few of the villi have hydropic change secondary to degeneration. No evidence of trophoblastic proliferation or cisterns are present. A few strips of gestational endometrium are present. Necrotic decidua with hemorrhage is present in a large quantity. Diagnosis I. Products of conception A. Necrotic and hemorrhagic placental and decidua tissue. B. Gestational endometrium. Batch Trucker bk Pathologist Tad Reed M.D. [place]. 08/30/1998 0834 <2> CPT code 14202/64682 MISCELLANEOUS SAMPLES / Unknown 08/26/1998 10:31 AM CDT 08/28/1998 10:32 AM CDT Historical Provider LAB - PATHOLOGY/C YTOLOGY ORDERABLES Care Teams Health Policy Analyst Relationship Specialty Start Date End Date Job Fuller APRN-CUSHION GUM APPLICATOR [address] [place] [id number] PCP - General 06/06/20 Job Fuller APRN-CUSHION GUM APPLICATOR [address] [place] [id number] 05/29/20
--- OUTSIDE RECORDS SUMMARY | 2024-06-16 16:30 | XMS_ITS | Clinical Summary ---
Author Organization [facility] Address [address] [place] [id number] Care Team Providers Care Cigar Inspector Name Role Phone Ele Green MD Primary Care Provider [phone] Social History Tobacco Use Types Packs/Day Years Used Date Smoking Tobacco: Never Assessed Comments Unknown Sex and Gender Information Value Date Recorded Sex Assigned at Not on file Legal Sex Female 12:57 PM CDT Gender Identity Not on file Sexual Orientation Not on file Plan of Treatment Health Maintenance Due Date Last Done Comments Cervical Cancer Screening Pa p Smear (Age 30 to 64) Every 3 Years 1970 Colorectal Cancer Screening Colonoscopy (10 Years) 1970 Annual Physical 1973 Hepatitis C 1988 DTaP, Tdap and Td Vaccines ( 1 - Tdap) 1989 Hepatitis B Vaccines (1 of 3 - 19+ 3-dose series) 1989 Cervical Cancer Screening Pa p with HPV Testing (Age 30 to 64) Every 5 Years 2000 Cervical Cancer Screening wi th HPV 2000 Mammogram Screening 2010 Zoster Vaccines (1 of 2) 2020 COVID-19 Vaccine (2 - 2023-2 5 season) 2024 12/12/2020 Influenza Adult (#1) 2024 01/28/2017, 01/23/2016, 02/07/2015 Meningococcal B Vaccine Aged Out No l onger eligible based on patient's age to complete this topic Meningococcal Vaccine Aged Out No beatriz colby eligible based on patient's age to complete this topic Pneumococcal Vaccine: Pediatrics (0 to 5 Years) and At-Risk Patients (6 to 64 Years) Aged Out No longer eligible b ased on patient's age to complete this topic RSV Immunizations Under 20 Months Aged Out No longer eligible b ased on patient's age to complete this topic Insurance [facility] Care Teams Cigar Inspector Relationship Specialty Start Date End Date Ele Green MD [address] [place] [id number] PCP - General EMERGENCY MEDICINE 03/10/23
--- OUTSIDE RECORDS SUMMARY | 2024-06-16 16:30 | XMS_ITS | Clinical Summary ---
Author Organization [facility] Address [address] [place] [address] Care Team Providers Care Civil Laboratory Technician Name Role Phone Job Fuller Unavailable [phone] Job Fuller Primary Care Provider Source Comments [facility],non-owned Affiliates and Associated Physician Practices is amultiple site organization consisting of ambulatory clinics and [place]in [place] and [place]. This disclosure is being madepursuant to the Care Everywhere program and may not contain all information available regarding this patient. Last updated 18.[facility] Allergies Active Allergy Reactions Criticality Noted Date Comments Allergy Swelling Medium 05/20/2016 Sulfa Drugs Urticaria Medium 02/03/2020 Medications * Be aware that medications may not be up to date on this document. Alwaysverify current medications with the patient. Medication Sig Dispensed Refills Start Date End Date Status ibuprofen (MOTRIN) 800 MG tablet TAKE 1 TABLET BY MOUTH THREE TIMES DAILY WITH FOOD 01/07/2020 Active VRAYLAR 1.5 MG capsule Take 1.5 mg by mouth once daily 01/11/2020 Active HYDROcodone-acetaminop hen (NORCO) 7.5-325 MG tablet TAKE 1 TABLET BY MOUTH TWICE DAILY NEEDED MUST LAST 30 DAYS 05/09/2020 Active Family History Relation Name Status Comments Father Mother Social History Tobacco Use Types Packs/Day Years [...] Comments Blood Pressure 112/77 07/07/2020 10:58 AM BIG DATA HADOOP DEVELOPER Pulse 105 07/07/2020 10:58 AM BIG DATA HADOOP DEVELOPER Temperature 36.1 C (97 F) 07/07/2020 10:58 AM BIG DATA HADOOP DEVELOPER Respiratory Rate 20 06/02/2020 9:05 AM BIG DATA HADOOP DEVELOPER Oxygen Saturation 96% 07/07/2020 10:58 AM BIG DATA HADOOP DEVELOPER Inhaled Oxygen Concentration - - Weight 92.5 kg (204 lb) 07/07/2020 10:58 AM BIG DATA HADOOP DEVELOPER Height 165.1 cm (5' 5 ) 07/07/2020 10:58 AM BIG DATA HADOOP DEVELOPER Body Mass Index 33.95 07/07/2020 10:58 AM BIG DATA HADOOP DEVELOPER Plan of Treatment Health Maintenance Due Date Last Done Comments COLOGUARD (AGES 45-75) - COL ON CA SCREENING 1970 COLON MONITORING 1970 COLONOSCOPY - COLON CA SCREENING 1970 CT COLONOGRAPHY - COLON CA SCREENING 1970 Colorectal Cancer Screening 1970 FIT - COLON CA SCREENING 1970 FLEX SIG - COLON CA SCREENING 1970 LIPID TESTING 1970 MAMMOGRAM 1970 PAP SMEAR 1970 HIV SCREENING 1985 HEPATITIS C SCREENING 03/11/1988 DTAP/TDAP/TD VACCINES (1 - Tdap) 1989 HEPATITIS B VACCINE (1 of 3 - 19+ 3-dose series) 1989 SCREENING FOR DIABETES 02/03/2020 PNEUMOCOCCAL VACCINE 50+ (1 of 1 - PCV) 2020 ZOSTER VACCINE (1 of 2) 2020 COVID-19 VACCINE ( - 2023-2 5 season) 2024 INFLUENZA VACCINE (#1) 2024 02/07/2015 DEPRESSION SCREENING 05/12/2024 HIB VACCINE Aged Out No longer eligi ble based on patient's age to complete this topic HPV VACCINE Aged Out No longer eligi ble based on patient's age to complete this topic MENINGOCOCCAL (Group B) VACCINE Aged Out No longer eligible based on patient's age to complete this topic MENINGOCOCCAL VACCINE Aged Out No beatriz colby eligible based on patient's age to complete this topic PNEUMOCOCCAL VACCINE Aged Out No long er eligible based on patient's age to complete this topic Care Teams Civil Laboratory Technician Relationship Specialty Start Date End Date Job Fuller APRN-CNP [address] [place] [address] PCP - General 06/06/20 Job Fuller APRN-CNP [address] [place] [address] 05/29/20
--- OUTSIDE RECORDS SUMMARY | 2024-06-16 16:30 | XMS_ITS | Encounter Summary ---
Author Organization [facility] Address [address] [place] [id number] Care Team Providers Care Polisher Numeral Name Role Phone Ele Green MD Primary Care Provider [phone] Encounter Details Date Type Department Care Team (Late st Contact Info) Description 02/02/2018 Abstract [facility] CONVERSION [address] [place] [address] , Generic ConversionMD Social History Tobacco Use Types Packs/Day Years Used Date Smoking Tobacco: Never Assessed Comments Unknown Sex and Gender Information Value Date Recorded Sex Assigned at Not on file Legal Sex Female 12:57 PM CDT Gender Identity Not on file Sexual Orientation Not on file documented as of this encounter Plan of Treatment Not on file documented as of this encounter Visit Diagnoses Not on filedocumented in this encounter Care Teams Polisher Numeral Relationship Specialty Start Date End Date Ele Green MD [address] [place] [phone] PCP - General EMERGENCY MEDICINE 03/10/23 documented as of this encounter
--- OUTSIDE RECORDS SUMMARY | 2024-06-16 16:30 | XMS_ITS | Data Portability ---
Author Organization [facility] [place] Address [address] [place] [address] Care Team Providers Care Program Checker Name Role Phone SUSIE LU Primary Care Provider [phone] Assessment Encounter Date Assessment Date Assessment LastModified by Organization Details LastModified Time 10/09/2023 10/09/2023 The patient and I discussed the various causes of abnormal uterine bleeding, including polyps, fibroids, hyperplasia, atypia, anovulation, etc. We reviewed the typical evaluation with labs, pelvic US and possible endometrial biopsy. Briefly discussed the options available for treatment (depending on the results of evaluation) such as hormonal treatment (OCPs, progestins), Mirena, endometrial ablation, and surgery. We spent more than 30 minutes face to face. [email or web address] Not available 10/09/2023 12:34:01 Plan of Treatment Reminders Order Date Submit Date Provider Last Modified By Organization Details Last Modified Time Details Appointments None recorded. Lab hormone panel, serum or plasma 2023 024 [facility] (Lab), [address], [place], [address], 4 11:58:04 testosteron e, total, serum 2023 024 [facility] (Lab), [address], [place], [address], 4 13:06:30 testosteron e, free, serum 2023 024 [facility] (Lab), [address], [place], [address], 4 13:06:31 CMP, serum or plasma 2023 024 [facility] (Lab), [address], [place], [address], 4 13:06:30 Referral None recorded. Procedures None recorded. Surgeries dilation and curettage with hysteroscop y (SURG) 2023 024 [facility], [address], [place], [address], 4 15:05:27 Imaging MAMMO, screening, bilateral [address] [facility], [address], [place], [address], 4 10:56:46 US, pelvis, complete 2023 [facility]24 [facility] [address], [address], [place], [address], 4 13:24:25 US, pelvis 2023 024 [facility] [place], [address], [place], [address], 4 15:22:56 US, transvagina l 2023 [address]24 [address], [address], [place], [address], 4 15:22:56 Medication Orders None recorded. Patient TargetsNo targets recorded. Patient InstructionsNo instructions recorded. Reason for Referral None Reported. Results Created Date Observation Date Name Description Value Unit Range Abnormal Flag Note LastModifiedBy Organization Detail LastModifiedTime 10/09/19 24 10/09/2023 FSH, LH, ESTRA DIOL estradiol 30.5 pg/mL This assay was perfo rmed using [employer] n reage nts and test kits. Value s obtai kieran with other assay metho ds or kits canno t be used [facility] . Femal e Estra diol Range s: Folli cular phasE 12.4- 233 pg/mL Ovula tion phasE 41.0- 398 pg/mL Lutea l phasE 22.3- 341 pg/mL Postm enopa usal <5-13 8 pg/mL Healt hy Pregn ant Women 1st Trime ster 154-3 243 pg/mL 2nd Trime ster 1561- 03529 pg/mL 3rd Trime ster 8525- >3000 0 pg/mL Not Available [facility] (Lab) [address] [place], [address], 10/10/2023 11:58:04 10/09/19 24 10/09/2023 FSH, LH, ESTRA DIOL FSH 15.0 mIU/m L This assay was perfo rmed using [employer] reage nts and test kits. Value s obtai kieran with other assay metho ds or kits canno t be used [facility] . Femal es Folli cular : 3.5-1 2.5 mIU/m L Ovula tion: 4.7-2 1.5 mIU/m L Lutea l: 1.7-7 .7 mIU/m L Postm enopa use: 25.8- 134.8 mIU/m L Not Available [facility] (Lab) [address] [place], [address], 10/10/2023 11:58:04 10/09/19 24 10/09/2023 FSH, LH, ESTRA DIOL LH 8.7 mIU/m L This assay was perfo rmed using [employer] reage nts and test kits. Value s obtai kieran with other assay metho ds or kits canno t be used [facility] . Femal es Mid-F ollic ular: 2.4-1 2.6 mIU/m L Mid-C ycle: 14.0- 95.6 mIU/m L Mid-L uteal : 1.0-1 1.4 mIU/m L Postm enopa use: 7.7-5 8.5 mIU/m L Not Available [facility] (Lab) [address], [place], [address], 10/10/2023 11:58:04 12/02/19 24 12/02/2023 TESTO STERO NE, TOTAL testosterone , total 84 NG/dL 0-100 Not Available [facility] (Lab) [address], [place], [address], 12/07/2023 13:06:30 12/02/19 24 12/02/2023 CMP(C OMPRE HENSI VE METAB OLIC PANEL ) sodium 139 mmol/ L 133-14 6 Not Available [facility] (Lab) [address], [place], [address], 12/07/2023 13:06:30 12/02/19 24 12/02/2023 CMP(C OMPRE HENSI VE METAB OLIC PANEL ) potassium 4.2 mmol/ L 3.5-5. 1 Not Available [facility] (Lab) [address], [place], [address], 12/07/2023 13:06:30 12/02/19 24 12/02/2023 CMP(C OMPRE HENSI VE METAB OLIC PANEL ) chloride 103 mmol/ L 98-107 Not Available [facility] (Lab) [address], [place], [address], 12/07/2023 13:06:30 12/02/19 24 12/02/2023 CMP(C OMPRE HENSI VE METAB OLIC PANEL ) carbon dioxide 26 mmol/ L 21-31 Not Available [facility] (Lab) [address], [place], [address], 12/07/2023 13:06:30 12/02/19 24 12/02/2023 CMP(C OMPRE HENSI VE METAB OLIC PANEL ) anion gap 10 mmol/ L 4-13 Not Available [facility] (Lab) [address], [place], [address], 12/07/2023 13:06:30 12/02/19 24 12/02/2023 CMP(C OMPRE HENSI VE METAB OLIC PANEL ) blood urea nitrogen 10 mg/dL 7-25 Not Available [facility] (Lab) [address], [place], [address], 12/07/2023 13:06:30 12/02/19 24 12/02/2023 CMP(C OMPRE HENSI VE METAB OLIC PANEL ) creatinine 0.86 mg/dL 0.60-1 .30 Not Available [facility] (Lab) [address], [place], [address], 12/07/2023 13:06:30 12/02/19 24 12/02/2023 CMP(C OMPRE HENSI VE METAB OLIC PANEL ) egfrcr (CKD-epi 2020) 81 mL/mi n/1.7 3_m2 >=60 Not Available [facility] (Lab) [address], [place], [address], 12/07/2023 13:06:30 12/02/19 24 12/02/2023 CMP(C OMPRE HENSI VE METAB OLIC PANEL ) calcium 9.4 mg/dL 8.3-10 .5 Not Available [facility] (Lab) [address], [place], [address], 12/07/2023 13:06:30 12/02/19 24 12/02/2023 CMP(C OMPRE HENSI VE METAB OLIC PANEL ) glucose 99 mg/dL 70-100 Not Available [facility] (Lab) [address], [place], [address], 12/07/2023 13:06:30 12/02/19 24 12/02/2023 CMP(C OMPRE HENSI VE METAB OLIC PANEL ) protein, total 7.0 g/dL 6.4-8. 3 Not Available [facility] (Lab) [address] [place], [address], 12/07/2023 13:06:30 12/02/19 24 12/02/2023 CMP(C OMPRE HENSI VE METAB OLIC PANEL ) albumin 4.5 g/dL 3.5-5. 0 Not Available [facility] (Lab) [address], [place], [address], 12/07/2023 13:06:30 12/02/19 24 12/02/2023 CMP(C OMPRE HENSI VE METAB OLIC PANEL ) ALT 12 units /L 9-43 Not Available [facility] (Lab) [address], [place], [address], 12/07/2023 13:06:30 12/02/19 24 12/02/2023 CMP(C OMPRE HENSI VE METAB OLIC PANEL ) alkaline phosphatase 73 units /L 34-104 Not Available [facility] (Lab) [address], [place], [address], 12/07/2023 13:06:30 12/02/19 24 12/02/2023 CMP(C OMPRE HENSI VE METAB OLIC PANEL ) AST 15 units /L 13-39 Not Available [facility] (Lab) [address] [place], [address], 12/07/2023 13:06:30 12/02/19 24 12/02/2023 CMP(C OMPRE HENSI VE METAB OLIC PANEL ) bilirubin, total 0.9 mg/dL 0.2-1. 2 Not Available [facility] (Lab) [address] [place], [address], 12/07/2023 13:06:30 12/02/19 24 12/02/2023 TESTO STERO NE, FREE testosterone free 11.8 pg/mL 0.2-5. 0 high The kathy ntrat ion of free testo stero ne is deriv ed from a vitor salgado model using total testo stero ne by LCMSM S, sex hormo ne aurelio ng globu memo and album in. This test was devel oped and its gadiel tical perfo rmanc e edda cteri stics have been deter mined by [employer] [facility] [facility] [place] [place]. It has not been clear ed or appro tiarra by the U.S. Food and Drug Admin istra tion. This assay has been valid ated pursu ant to the CLIA regul ation s and is used for clini estella purpo ses. Perfo rming Organ izati on Infor matio n: Site ID: AMD Name: [facility] Jai ls Insti tute Addre ss: [id number] [address] [place], [place] Direc tor: Tito Belcher MD PhD Not Available [facility] (Lab) [address], [place], [address], 12/07/2023 13:06:31 10/13/19 24 10/13/2023 US, pelvi s No observ ation record ed. [email or web address] [place] [address], [place], [address], 10/13/2023 13:09:06 10/13/19 24 10/13/2023 US, trans vagin al No observ ation record ed. [email or web address] [place] [address], [place], [address], 10/13/2023 13:08:56 10/13/19 24 10/13/2023 US, pelvi s No observ ation record ed. [email or web address], [facility], [place], [address], 10/22/2023 11:29:49 Result Notes None recorded. Procedures Surgical History Date Name Laterality Status Provider Name and Address Organization Details Recorded Time 11/24/19 24 DILATION AND CURETTAGE WITH HYSTEROSCOPY (SURG) completed Madi CARUSO [facility] 11/24/2023 16:16:49 10/09/19 24 Date of Last Pap Smear completed [facility] 12/02/2023 10:05:10 05/12/19 23 Date of Last Colonoscopy completed [facility] 10/09/2023 11:57:28 05/12/19 11 Tonsillectomy completed [facility] 10/09/2023 12:06:33 05/12/19 10 thyroidectomy completed [facility] 10/09/2023 12:06:47 Tubal Ligation completed [facility] 10/09/2023 12:06:25 Imaging Results Imaging Date Name Status LastModified by Organization Details LastModified Time 10/13/2023 US, pelvis completed [email or web address] [place] [address], [place], [address], 10/13/2023 13:09:06 10/13/2023 US, transvaginal completed [email or web address] [address], [place], [address], 10/13/2023 13:08:56 10/13/2023 US, pelvis completed [email or web address], [place], [address], 10/22/2023 11:29:49 Procedure Notes None recorded. Medical Equipment None Reported. Allergies Allergen ID Allergen Name Allergen Category Reaction Reaction Severity Criticality Documentation Date Start Date Code Code System Note Provider Name and Address Organization Details Recorded Time 83719 Substance with sulfonami de structure and antibacte rial mechanism of action (substanc e) medicatio n Not available Not available Not available 10/09/2023 18903 8003 SNOMED [facility] 11:51:23 Medications Name Sig Start Date Stop Date Status Note LastModified by Organization Details LastModified Time trazodone 50 mg tablet TAKE 1 TABLET BY MOUTH EVERY DAY AT BEDTIME NEEDED active Not Available Not Available No t Available cetirizine 10 mg tablet TAKE 1 TABLET BY MOUTH ONCE DAILY 10/08 completed Not Available Not Available Not Available benzonatate 200 mg capsule TAKE 1 CAPSULE BY MOUTH THREE TIMES DAILY NEEDED FOR COUGH 10/08 completed Not Available Not Available Not Available hydrocodone 5 mg-acetamin ophen 325 mg tablet TAKE 1 TABLET BY MOUTH TWICE DAILY NEEDED 10/08 completed Not Available Not Available Not Available prednisone 20 mg tablet TAKE 2 TABLETS BY MOUTH ONCE DAILY FOR 5 DAYS 10/08 completed Not Available Not Available Not Available metronidazo le 500 mg tablet TAKE 1 TABLET BY MOUTH TWICE DAILY FOR 5 DAYS 10/08 completed Not Available Not Available Not Available allopurinol 100 mg tablet TAKE 1 TABLET BY MOUTH ONCE DAILY 10/08 completed Not Available Not Available Not Available ofloxacin 0.3 % ear drops INSTILL 5 DROPS INTO RIGHT EAR TWICE DAILY FOR 7 DAYS 10/08 completed Not Available Not Available Not Available amoxicillin 875 mg tablet TAKE 1 TABLET BY MOUTH TWICE DAILY FOR 10 DAYS 10/08 completed Not Available Not Available Not Available levothyroxi ne 50 mcg tablet TAKE 1 TABLET BY MOUTH ONCE DAILY ON AN EMPTY STOMACH active Not Available Not Available No t Available cyanocobala min (vit B-12) 1,000 mcg/mL injection solution active Not Available Not Available Not Available clotrimazol e 1 % topical solution APPLY 4 DROPS TO THE AFFECTED EAR EXTERNALL Y TWICE DAILY FOR 10 DAYS 10/08 completed Not Available Not Available Not Available BD Luer-Mulu Syringe 3 mL 25 gauge x 1 USE TO INJECT TESTOSTER ONE AND ESTRADIOL EVERY 3 TO 4 WEEKS 12/01 completed Not Available Not Available Not Available omeprazole 20 mg capsule,del ayed release TAKE 1 CAPSULE BY MOUTH ONCE DAILY active Not Available Not Available No t Available testosteron e cypionate 200 mg/mL intramuscul ar oil INJECT 0.25 ML (CC) INTRAMUSC ULARLY ONCE EVERY 3 WEEKS active Not Available Not Available No t Available methylpredn isolone 4 mg tablets in a dose pack TAKE BY MOUTH DIRECTED ON INSIDE OF PACKAGE 10/08 completed Not Available Not Available Not Available albuterol sulfate HFA 90 mcg/actuati on aerosol inhaler INHALE 2 PUFFS BY MOUTH 4 TIMES DAILY NEEDED active Not Available Not Available No t Available BD Luer-Mulu Syringe 3 mL 18 x 1 1/2 USE TO DRAW TESTOSTER ONE AND ESTRADIOL FROM VIAL. CHANGE TO 25 G TO INJECT 12/01 completed Not Available Not Available Not Available fluticasone propionate 50 mcg/actuati on nasal spray,suspe nsion USE 2 SPRAY(S) IN EACH NOSTRIL ONCE DAILY 12/01 completed Not Available Not Available Not Available Depo-Estrad iol 5 mg/mL intramuscul ar oil INJECT 0.5ML INTRAMUSC ULARLY EVERY 2-3 WEEKS 10/08 completed Not Available Not Available Not Available naproxen 500 mg tablet TAKE 1 TABLET BY MOUTH TWICE DAILY WITH FOOD 10/08 completed Not Available Not Available Not Available spironolact one 50 mg tablet TAKE 1 TABLET BY MOUTH ONCE DAILY IN THE MORNING 12/01 completed Not Available Not Available Not Available progesteron e micronized 100 mg capsule TAKE 1 CAPSULE BY MOUTH ONCE DAILY IN THE EVENING active Not Available Not Available No t Available amoxicillin 875 mg-potassiu m clavulanate 125 mg tablet TAKE 1 TABLET BY MOUTH EVERY 12 HOURS FOR 10 DAYS 10/08 completed Not Available Not Available Not Available ciprofloxac in 0.3 %-dexametha sone 0.1 % ear drops,suspe nsion INSTILL 4 DROPS INTO RIGHT EAR TWICE DAILY FOR 7 DAYS 10/08 completed Not Available Not Available Not Available rosuvastati n 20 mg tablet TAKE 1 TABLET BY MOUTH ONCE DAILY active Not Available Not Available No t Available naloxone 4 mg/actuatio n nasal spray CALL 911. SPR CONTENTS OF ONE SPRAYER (0.1ML) INTO ONE NOSTRIL. REPEAT IN 2-3 MIN IF SYMPTOMS OF OPIOID EMERGENCY PERSIST, ALTERNATE NOSTRILS 12/01 completed Not Available Not Available Not Available Vraylar 1.5 mg capsule TAKE 1 CAPSULE BY MOUTH ONCE DAILY FOR 30 DAYS 10/08 completed Not Available Not Available Not Available Ozempic 2 mg/dose (8 mg/3 mL) subcutaneou s pen injector active Not Available Not Available Not Available Caplyta 10.5 mg capsule TAKE 1 CAPSULE BY MOUTH ONCE DAILY 10/08 completed Not Available Not Available Not Available Caplyta 21 mg capsule TAKE 1 CAPSULE BY MOUTH ONCE DAILY active Not Available Not Available No t Available Ozempic 0.25 mg or 0.5 mg (2 mg/3 mL) subcutaneou s pen injector INJECT 1/2 (ONE-HALF ) MG SUBCUTANE OUSLY ONCE A WEEK 12/01 completed Not Available Not Available Not Available Vitals Date Recorded Body height Body mass index (BMI) Body weight Systolic blood pressure Diastolic blood pressure Provider Name and Address Organization Details Last Updated DateTime 10/09/2023 162.56 cm 32.3 kg/m2 54407.37 g 124 mm[Hg] 78 mm[Hg] Cynthia Landeros [facility] 4 11:51:13 Date Recorded Body height Body mass index (BMI) Body weight Systolic blood pressure Diastolic blood pressure Provider Name and Address Organization Details Last Updated DateTime 10/23/2023 162.56 cm 32.9 kg/m2 63760.02 g 101 mm[Hg] 67 mm[Hg] Renée Garzon [facility] 4 09:35:21 Date Recorded Body height Body mass index (BMI) Body weight Systolic blood pressure Diastolic blood pressure Provider Name and Address Organization Details Last Updated DateTime 12/02/2023 162.56 cm 31.8 kg/m2 33107.59 g 106 mm[Hg] 73 mm[Hg] Cynthia Landeros [facility] 4 10:03:58 Social History Question Answer Notes LastModified by Organizat ion Details LastModified Time Tobacco Smoking Status Current Every Day Smoker Cynthia Landeros [facility] 10/09/2023 12:02:44 What Is Your Level Of Alcohol Consumption? Occasional Information not available 10/09/2023 Are You Blind Or Do You Have Difficulty Seeing? No Information not available 10/09/2023 What Is Your Level Of Caffeine Consumption? Moderate Information not available 10/09/2023 In The 14 Days Before Symptom Onset, Have You Had Close Contact With A Laboratory-confir med COVID-19 While That Case Was Ill? No Information not available 10/09/2023 In The 14 Days Before Symptom Onset, Have You Had Close Contact With A Person Who Is Under Investigation For COVID-19 While That Person Was Ill? No Information not available 10/09/2023 Have You Been To An Area Known To Be High Risk For COVID-19? No Information not available 10/09/2023 Are You Currently Employed? No Information not available 10/09/2023 Are You Deaf Or Do You Have Serious Difficulty Hearing? No Information not available 10/09/2023 What Type Of Diet Are You Following? REGULAR Information not available 10/09/2023 What Is The Highest Grade Or Level Of School You Have Completed Or The Highest Degree You Have Received? [id number] Information not available 10/09/2023 Are There Any Guns Present In Your Home? No Information not available 10/09/2023 Do You Use Protection During Sex? No Information not available 10/09/2023 Do You Use Your Seat Belt Or Car Seat Routinely? No Information not available 10/09/2023 Are You Sexually Active? Yes Information not available 10/09/2023 Do You Have Smoke And Carbon Monoxide Detectors In Your Home? Yes Information not available 10/09/2023 Do You Feel Stressed (tense, Restless, Nervous, Or Anxious, Or Unable To Sleep At Night)? [id number] Information not available 10/09/2023 Do You Use Any Illicit Or Recreational Drugs? No Stopped Cocaine 2 Months Ago. Used 15-20 Years Information not available 10/09/2023 Do You Use Sunscreen Routinely? Yes Information not available 10/09/2023 Sex: Female Functional Status Question Answer Note LastModified by Organizat ion Details LastModified Time Do you have difficulty walking or climbing stairs? No Information not available 10/09/2023 Are you able to walk? YESWOREST Information not available 10/09/2023 Are you able to care for yourself? Yes Information not available 10/09/2023 Do you have difficulty dressing or bathing? No Information not available 10/09/2023 What is your exercise level? None Information not available 10/09/2023 Mental Status None recorded. Family History Relationship Description Onset Age of this Age Resolved Age Notes LastModified by Organization Details LastModified Time Father Parkinson's disease Not available 2023 12:02:07 Mother Pulmonary fibroplasia Not available 09/11 12:02:32 Sister Pulmonary fibroplasia Not available 09/11 12:02:32 Medical History Condition Response Allergies (Food, seasonal, environmental ) N Other Y Blood Transfusion N Drug/Latex Allergies/Reactions N Breast Cancer N Dermatologic Disorders N Lung Disease N Defects or Inherited Disease N Breast Problem N Gestational Diabetes N Hematologic disorders N Anesthesia Complications N History of STI Y Deep Vein Thrombosis N Polycystic ovary syndrome N Anxiety Disorder Y Autoimmune disease N Arthritis N Infertility N Polyps N Acid Reflux (GERD) Y History of abnormal pap N Cancer N Stroke N Varicosities N Neurologic/Epilepsy N Endometriosis N High Cholesterol Y Headaches N Fibromyalgia N Kidney Disease N Heart Problems N Kidney or Bladder Problems N Thyroid Problems Y GI Problems N Eating Disorder N Anemia N Art (IVF or FET) N Psychiatric Illness Y Ovarian Cancer N Diabetes Y Pulmonary (TB, Asthma) N Hepatitis/Liver Disease N No Past Medical History N Eczema N Urinary Tract Infection N Abuse/Domestic Violence N Asthma N Trauma/Violence N Depression/ depression Y Heart Disease N Pre-Eclampsia N Hypertension N Osteoporosis N Thrombophilias N Gynecological History Statement/Question Response Date of Last Mammogram Date of LMP 12/11/2015 STIs/STDs Y HPV Vaccine N Current Control Method Menopause If Post Menopausal, Age at Menopause 45 Date of Last Colonoscopy 05/12/2022 Sexually Active? Y Menses Monthly N Age of first menstrual cycle 13 Date of Last Pap Smear 10/09/2023 Sexual Problems? Y LMP Definite Obstetrics History GPAL:G 7 P 0 0 4 3 Type Value Induced 2 Spontaneous 2 Living 3 Total 7 Past Encounters Encounter ID Performer Location Encounter Start Date Encounter Closed Date Diagnosis/Indication Diagnosis SNOMED-CT Code Diagnosis ICD10 Code Diagnosis Note [id number] [facility] [address] [address] 10/09/2023 11:22:36 10/09/2023 12:35:07 Postmenopausal bleeding 62954708 N95.0 Today we agreed to update a TVUS and schedule MD consult.Ex am was positive for brown menstrual like blood.Her cervix was very stenotic-d id not attempt EMBx due to this reason; but likely will need to be completed; will have MD assess this. Health Hx was reviewed and updated as reported in chart.Pap/ hpv/STD sent Time spent in visit is a total of 25 mins with at least 50% of visit consisting of counseling and review of plan of care. Screening mammography 24 [id number] Z12.31 Diarrhea 20883405 R11.0 We discussed making an updated appt with PCP for further evaluation of GI related sx's as those may/may not be related to [employer] issue at hand.She agrees. [id number] Arina Shipley [place] [address],[facility] [place] [address] 10/13/2023 11:39:42 10/13/2023 12:49:01 Postmenopausal bleeding 13722661 N95.0 [id number] SHAE CASH MD [place] [address] [address] 10/23/2023 09:17:40 10/29/2023 06:52:18 Postmenopausal bleeding 76773715 N95.0 - on HRT (estrogen and testostero ne) for years, no progestero ne therapy until August- two episodes of PMB- pelvic US demonstrat es heterogeno us and threatened endometriu m, 7mm- recommend full endometria l sampling with hysterosco py and D&C; r/b/a discussed with patient- continue progestero ne therapy until D&C [id number] SHAE CASH MD [place] [address],[place] [address] 12/02/2023 09:52:04 12/02/2023 10:42:17 Hormone replacement therapy [id number] Z79.890 - on IM testostero ne and estrogen, PO progestero ne- reports facial hair growth, voice deepening- will check testostero ne and CMP today; patient not fasting for lipid panel- follow up on results as available Postoperative visit [id number] Z48.89 - s/p hysterosco py D&C 11/23- meeting post op milestones - ok to d/c restrictio ns- pathology: benign- emphasized importance of progestero ne therapy while on HRT Health Concerns Section Related Observation LastModified by Organization Detai ls LastModified Time None Recorded Concern Status LastModified by Organization Details LastModified Time None Recorded Advance Directives Directive None Recorded Payers Encounter Date Sequence Insurance Name Policy Number Policy Barth Covered Member ID Barth Member ID Guarantor Name 10/09/2023 1 [facility] [id number] Enrique Mcnamarawer [id number] Hope Ferrell 10/13/2023 1 [facility] [id number] Enrique Ferrell [id number] Hope Ramon Ferrell 10/23/2023 1 [facility] [id number] Enrique Mcnamarawer [id number] Hope Ramon Ferrell 12/02/2023 1 R [id number] Enrique Ferrell [id number] Hope Ferrell Notes Date Note Type Note Provider Name and Address Organization Details Recorded Time 10/09/2023 text/html Beer - Abnormal BleedingReported bypatient.Onset/Timin g:postmenopause Duration:1-2 days Quality:spotting (brownish like old blood );irregular Context:current HRT use (Testosterone injections/Progestero ne--not new regimen) Associated Symptoms:no dysmenorrhea; no abdominal pain; no dyspareunia; no fatigue; no dizziness; no anemia/iron supplements; no shortness of breath; no CP/palpitations;pelvi c pain(left lower) CAITLIN Cardoza- [address], [place], [address], [facility] 10/09/2023 12:34:33 10/23/2023 text/html Presents for discussion of PMB. December 2015 was LMP. Then had an episode of bleeding 6 weeks ago. Had shooting pain in stomach along with bleeding. Bleeding last 3-4 days, mild. Had an additional episode 3 weeks ago, along with pain as well. On estradiol 0.5, testosterone 0.5 IM every 6 weeks for years. Has not been on progesterone until August. No family hx of cancer. SHAE CASH MD [address], [place], [address], [facility] 10/28/2023 22:58:21 12/02/2023 text/html S/p hysteroscopy D&C 11/23. Patient doing well, no complaints. Pain resolved. Tolerating general diet. Denies nausea or vomiting. No shortness of breath or chest pain. Ambulating. Bleeding resolved. Patient on HRT with IM estrogen and testosterone. Patient reports increased facial hair and voice deepening. SHAE CASH MD [address], [place], [address], [facility] 12/02/2023 10:36:37 OBGyn Episode Ob Episode Information Episode Created Date Number of Fetuses Patient Bloodtype Patient rh Status Prepregnancy Weight lbs Domestic Partner Domestic Partner Phone Father Name Marker Shipments Status 10/09/19 24 1 CLOSED Fetus Data First Name Last Name Admitted to NICU Weight (g) Sex Living Outcome Pediatric Complications Fetus ID Race Codes Race Delivery Type M Full Term [id number] Vaginal Delivery [place] Calculation Initial [place] Date Initial Exam Date Initial Exam Provider Initial Ultrasound Date Last Menstrual Period Date Ultra Sound Weeks Gestation 0 Eighteen To Twenty Week [place] Update Ultra Sound Date Fundal Height At Umbil Quickening Date Ultra Sound Latest Weeks Gestation Final [place] Confirmed By Final [place] Confirmed Date Final [place] Date Ultra Sound Latest Days Gestation 0 0 Menstrual History Last Menstrual Date Menses Monthly On Bcp Conception Prior Menses Frequency Hcg Plus Date Menarche Onset Age Delivery Information Delivery Date Delivery Type Labor Anesthesia Weeks Gestation Incision Type Labor Labor Length Hrs Delivered By Post Complications Tubal Sterilization Discharge Date Comments 4 Discharge Information Feeding Method Contraceptive Method Maternal HG B and HCT Levels Ob Episode Information Episode Created Date Number of Fetuses Patient Bloodtype Patient rh Status Prepregnancy Weight lbs Domestic Partner Domestic Partner Phone Father Name Marker Shipments Status 10/09/19 24 1 CLOSED Fetus Data First Name Last Name Admitted to NICU Weight (g) Sex Living Outcome Pediatric Complications Fetus ID Race Codes Race Delivery Type , Spontane ous [id number] [place] Calculation Initial [place] Date Initial Exam Date Initial Exam Provider Initial Ultrasound Date Last Menstrual Period Date Ultra Sound Weeks Gestation 0 Eighteen To Twenty Week [place] Update Ultra Sound Date Fundal Height At Umbil Quickening Date Ultra Sound Latest Weeks Gestation Final [place] Confirmed By Final [place] Confirmed Date Final [place] Date Ultra Sound Latest Days Gestation 0 0 Menstrual History Last Menstrual Date Menses Monthly On Bcp Conception Prior Menses Frequency Hcg Plus Date Menarche Onset Age Delivery Information Delivery Date Delivery Type Labor Anesthesia Weeks Gestation Incision Type Labor Labor Length Hrs Delivered By Post Complications Tubal Sterilization Discharge Date Comments 9 Discharge Information Feeding Method Contraceptive Method Maternal HG B and HCT Levels Ob Episode Information Episode Created Date Number of Fetuses Patient Bloodtype Patient rh Status Prepregnancy Weight lbs Domestic Partner Domestic Partner Phone Father Name Marker Shipments Status 10/09/19 24 1 CLOSED Fetus Data First Name Last Name Admitted to NICU Weight (g) Sex Living Outcome Pediatric Complications Fetus ID Race Codes Race Delivery Type F Full Term [id number] Vaginal Delivery [place] Calculation Initial [place] Date Initial Exam Date Initial Exam Provider Initial Ultrasound Date Last Menstrual Period Date Ultra Sound Weeks Gestation 0 Eighteen To Twenty Week [place] Update Ultra Sound Date Fundal Height At Umbil Quickening Date Ultra Sound Latest Weeks Gestation Final [place] Confirmed By Final [place] Confirmed Date Final [place] Date Ultra Sound Latest Days Gestation 0 0 Menstrual History Last Menstrual Date Menses Monthly On Bcp Conception Prior Menses Frequency Hcg Plus Date Menarche Onset Age Delivery Information Delivery Date Delivery Type Labor Anesthesia Weeks Gestation Incision Type Labor Labor Length Hrs Delivered By Post Complications Tubal Sterilization Discharge Date Comments 1 Discharge Information Feeding Method Contraceptive Method Maternal HG B and HCT Levels Ob Episode Information Episode Created Date Number of Fetuses Patient Bloodtype Patient rh Status Prepregnancy Weight lbs Domestic Partner Domestic Partner Phone Father Name Marker Shipments Status 10/09/19 24 1 CLOSED Fetus Data First Name Last Name Admitted to NICU Weight (g) Sex Living Outcome Pediatric Complications Fetus ID Race Codes Race Delivery Type , Induced [id number] [place] Calculation Initial [place] Date Initial Exam Date Initial Exam Provider Initial Ultrasound Date Last Menstrual Period Date Ultra Sound Weeks Gestation 0 Eighteen To Twenty Week [place] Update Ultra Sound Date Fundal Height At Umbil Quickening Date Ultra Sound Latest Weeks Gestation Final [place] Confirmed By Final [place] Confirmed Date Final [place] Date Ultra Sound Latest Days Gestation 0 0 Menstrual History Last Menstrual Date Menses Monthly On Bcp Conception Prior Menses Frequency Hcg Plus Date Menarche Onset Age Delivery Information Delivery Date Delivery Type Labor Anesthesia Weeks Gestation Incision Type Labor Labor Length Hrs Delivered By Post Complications Tubal Sterilization Discharge Date Comments 4 Discharge Information Feeding Method Contraceptive Method Maternal HG B and HCT Levels Ob Episode Information Episode Created Date Number of Fetuses Patient Bloodtype Patient rh Status Prepregnancy Weight lbs Domestic Partner Domestic Partner Phone Father Name Marker Shipments Status 10/09/19 24 1 CLOSED Fetus Data First Name Last Name Admitted to NICU Weight (g) Sex Living Outcome Pediatric Complications Fetus ID Race Codes Race Delivery Type , Spontane ous [id number] [place] Calculation Initial [place] Date Initial Exam Date Initial Exam Provider Initial Ultrasound Date Last Menstrual Period Date Ultra Sound Weeks Gestation 0 Eighteen To Twenty Week [place] Update Ultra Sound Date Fundal Height At Umbil Quickening Date Ultra Sound Latest Weeks Gestation Final [place] Confirmed By Final [place] Confirmed Date Final [place] Date Ultra Sound Latest Days Gestation 0 0 Menstrual History Last Menstrual Date Menses Monthly On Bcp Conception Prior Menses Frequency Hcg Plus Date Menarche Onset Age Delivery Information Delivery Date Delivery Type Labor Anesthesia Weeks Gestation Incision Type Labor Labor Length Hrs Delivered By Post Complications Tubal Sterilization Discharge Date Comments 1 Discharge Information Feeding Method Contraceptive Method Maternal HG B and HCT Levels Ob Episode Information Episode Created Date Number of Fetuses Patient Bloodtype Patient rh Status Prepregnancy Weight lbs Domestic Partner Domestic Partner Phone Father Name Marker Shipments Status 10/09/19 24 1 CLOSED Fetus Data First Name Last Name Admitted to NICU Weight (g) Sex Living Outcome Pediatric Complications Fetus ID Race Codes Race Delivery Type , Induced [id number] [place] Calculation Initial [place] Date Initial Exam Date Initial Exam Provider Initial Ultrasound Date Last Menstrual Period Date Ultra Sound Weeks Gestation 0 Eighteen To Twenty Week [place] Update Ultra Sound Date Fundal Height At Umbil Quickening Date Ultra Sound Latest Weeks Gestation Final [place] Confirmed By Final [place] Confirmed Date Final [place] Date Ultra Sound Latest Days Gestation 0 0 Menstrual History Last Menstrual Date Menses Monthly On Bcp Conception Prior Menses Frequency Hcg Plus Date Menarche Onset Age Delivery Information Delivery Date Delivery Type Labor Anesthesia Weeks Gestation Incision Type Labor Labor Length Hrs Delivered By Post Complications Tubal Sterilization Discharge Date Comments 4 Discharge Information Feeding Method Contraceptive Method Maternal HG B and HCT Levels Ob Episode Information Episode Created Date Number of Fetuses Patient Bloodtype Patient rh Status Prepregnancy Weight lbs Domestic Partner Domestic Partner Phone Father Name Marker Shipments Status 10/09/19 24 1 CLOSED Fetus Data First Name Last Name Admitted to NICU Weight (g) Sex Living Outcome Pediatric Complications Fetus ID Race Codes Race Delivery Type F Full Term [id number] Vaginal Delivery [place] Calculation Initial [place] Date Initial Exam Date Initial Exam Provider Initial Ultrasound Date Last Menstrual Period Date Ultra Sound Weeks Gestation 0 Eighteen To Twenty Week [place] Update Ultra Sound Date Fundal Height At Umbil Quickening Date Ultra Sound Latest Weeks Gestation Final [place] Confirmed By Final [place] Confirmed Date Final [place] Date Ultra Sound Latest Days Gestation 0 0 Menstrual History Last Menstrual Date Menses Monthly On Bcp Conception Prior Menses Frequency Hcg Plus Date Menarche Onset Age Delivery Information Delivery Date Delivery Type Labor Anesthesia Weeks Gestation Incision Type Labor Labor Length Hrs Delivered By Post Complications Tubal Sterilization Discharge Date Comments 2 Discharge Information Feeding Method Contraceptive Method Maternal HG B and HCT Levels
--- OUTSIDE RECORDS SUMMARY | 2024-06-16 16:30 | XMS_ITS | Encounter Summary ---
Author Organization [facility] Address [address] [place] [address] Care Team Providers Care Forensic Chemist Name Role Phone Job Fuller APRN-DELIVERY TECHNICIAN Unavailable [phone] Job Fuller APRN-DELIVERY TECHNICIAN Primary Care Provider Encounter Details Date Type Department Care Team (Late st Contact Info) Description 05/16/2023 Lab Requisition [facility] - DermPath Lab [address] [place] [id number] Jim Westbrook MD [address] [place] [address] Social History Tobacco Use Types Packs/Day Years [...] on file documented as of this encounter Procedures Procedure Name Priority Date/Time Associated Diagnosis Comments DERMATOPATHOLOGY Routine 05/15/2023 12:0 0 AM ACLS NURSE documented in this encounter Results * DERMATOPATHOLOGY (05/15/2023 12:00 AM ACLS NURSE) Case Report Dermatopathology Report Case: [id number] Authorizing Provider: Jim Westbrook MD Collected: 05/15/2023 12:00 AM Ordering Location: [facility] DermPath Lab Received: 05/16/2023 12:53 PM Pathologist: Alisia Masters MD Specimen: Skin, left upper chest 2:48 PM ACLS NURSE DERMATOPATHOLOGY LABORATORY Final Diagnosis Specimen A. 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 Path#[id number] 2:48 PM ACLS NURSE DERMATOPATHOLOGY LABORATORY Gross Description Specimen A: Received is one formalin filled container labeled with the patient's name and designated left upper chest. The specimen consists of a shave biopsy measuring 4x2x1 mm. Jar 0. 2:48 PM ACLS NURSE DERMATOPATHOLOGY LABORATORY Microscopic Description Specimen A. SKIN, left upper chest: There is hyperkeratosis alternating with parakeratosis. There is epidermal hyperplasia with disorderly maturation of keratinocytes with nuclear pleomorphism confined to the lower half of the epidermis. Focally there is a suprabasilar cleft with acantholytic cells. Additional deeper sections were obtained and reviewed. 2:48 PM [facility] DERMATOPATHOLOGY LABORATORY Disclaimer An external and internal positive and negative controls are appropriate for the histochemical, immunohistochemical and immunofluorescence stain(s) in this case (if any), except where stated explicitly. The performance characteristics of the stain(s) cited in this report were developed and its performance characteristic determined by the Dermatopathology Laboratory at [facility], directed by Dr. Neeraj Case. These tests need not be, and therefore are not, approved by the [place] Food and Drug Administration. The tests are used for clinical purposes. Billing Codes Specimen Charges Stain Charges 52153 1 2:48 PM ACLS NURSE DERMATOPATHOLOGY LABORATORY Embedded Images 2:48 PM ACLS NURSE DERMATOPATHOLOGY LABORATORY Pathology/Cytolog y TISSUE SPECIMEN FROM SKIN / Unknown 05/15/2023 05/16/2023 12:53 PM ACLS NURSE Jim Westbrook MD LAB - PATHOLOGY/CYTO LOGY ORDERABLES DERMATOPATHOLOGY LABORATORY [facility] - Department of Dermatology [address], [address] [phone] documented in this encounter Visit Diagnoses Not on filedocumented in this encounter Care Teams Forensic Chemist Relationship Specialty Start Date End Date Job Fuller APRN-JOSÉ MIGUEL [address] [place] [address] PCP - General 06/06/20 Job Fuller APRN-CNP [address] [place] [id number] 05/29/20 documented as of this encounter
--- OUTSIDE RECORDS SUMMARY | 2024-06-16 16:30 | XMS_ITS | Referral Summary ---
Author Organization [facility] Address [address] [place] [address] Care Team Providers Care Extender Name Role Phone Job Fuller Unavailable [phone] Job Fuller Primary Care Provider Source Comments [facility],non-owned Affiliates and Associated Physician Practices is amultiple site organization consisting of ambulatory clinics and hospital sitesin [place], [place]. This disclosure is being madepursuant to the Care Everywhere program and may not contain all information available regarding this patient. Last updated 18.[facility] Allergies Active Allergy Reactions Criticality Noted Date [...] NEEDED MUST LAST 30 DAYS 05/09/2020 Active Social History Tobacco Use Types Packs/Day Years [...] Comments Blood Pressure 112/77 07/07/2020 10:58 AM COIL CONNECTOR REPAIRER Pulse 105 07/07/2020 10:58 AM COIL CONNECTOR REPAIRER Temperature 36.1 C (97 F) 07/07/2020 10:58 AM COIL CONNECTOR REPAIRER Respiratory Rate 20 06/02/2020 9:05 AM COIL CONNECTOR REPAIRER Oxygen Saturation 96% 07/07/2020 10:58 AM COIL CONNECTOR REPAIRER Inhaled Oxygen Concentration - - Weight 92.5 kg (204 lb) 07/07/2020 10:58 AM COIL CONNECTOR REPAIRER Height 165.1 cm (5' 5 ) 07/07/2020 10:58 AM COIL CONNECTOR REPAIRER Body Mass Index 33.95 07/07/2020 10:58 AM COIL CONNECTOR REPAIRER Plan of Treatment Not on file Care Teams Extender Relationship Specialty Start Date End Date Job Fuller APRN-STUDENT SERVICES VICE PRESIDENT [address] [place] [address] PCP - General 06/06/20 Job Fuller APRN-STUDENT SERVICES VICE PRESIDENT [address] [place] [address] 05/29/20
--- OUTSIDE RECORDS SUMMARY | 2024-06-16 16:30 | XMS_ITS | Data Portability ---
Author Organization [facility] Address [address] [place] [address] Assessment Encounter Date Assessment Date Assessment LastModified by Organization Details LastModified Time 02/12/2023 02/12/2023 Advised patient to avoid using cocaine. [email or web address] Not available 02/12/2023 15:20:42 Plan of Treatment Reminders Order Date Submit Date Provider Last Modified By Organization Details Last Modified Time Details Appointments ANY 30 2024 11:00A Kamari Green MD Not available Not available Not available Lab HbA1c (hemoglob in A1c), blood 2022 023 [facility], [address], [address], [place], [address], 01/24/2023 11:16:09 TSH, ultra-sen sitive, serum 2022 023 [facility], [address], [address], [place], [address], 01/24/2023 11:16:08 bacterial vaginosis + vaginitis panel, vaginal 2022 023 [facility], [address], [address], [place], [address], 01/24/2023 11:16:07 TSH, ultra-sen sitive, serum 2022 023 [facility], [address], [address], [place], [address], 02/04/2023 06:17:35 HbA1c (hemoglob in A1c), blood 2022 023 [facility], [address] [facility], [address], [place], [address], 02/04/2023 06:17:36 Referral None recorded. Procedures None recorded. Surgeries None recorded. Imaging None recorded. Medication Orders metronida zole 500 mg tablet 2022 023 [facility], [address] [place], [address], 01/20/2023 13:04:34 Crestor 20 mg tablet 2022 023 [facility], [facility] [place], [address], 01/20/2023 13:04:31 amoxicill in 875 mg tablet 2022 023 [facility], [facility] [place], [address], 02/12/2023 15:04:45 Ozempic 0.25 mg or 0.5 mg (2 mg/1.5 mL) subcutane ous pen injector 2022 023 [facility], [address] [place], [address], 02/25/2023 15:21:07 Ozempic 0.25 mg or 0.5 mg (2 mg/3 mL) subcutane ous pen injector 2023 024 [facility], [facility] [place], [address], 07/22/2023 12:04:50 trazodone 50 mg tablet 2023 024 [facility], [facility] [place], [address], 07/22/2023 12:04:52 omeprazol e 20 mg capsule,d elayed release 2023 024 [facility], [address] [place], [address], 07/22/2023 12:04:52 rosuvasta tin 20 mg tablet 2023 024 [facility], [address] [place], [address], 07/22/2023 12:04:50 albuterol sulfate HFA 90 mcg/actua tion aerosol inhaler 2023 024 [facility], [address] [place], [address], 07/22/2023 12:04:51 Patient TargetsNo targets recorded. Patient Instructions Encounter Date Encounter Id Patient Instructions Last Modified By Organization Details Last Modified Time 02/12/2023 [id number] A healthy lifestyle: care instructions [email or web address] Not available 02/12/2023 15:27:05 Reason for Referral None Reported. Results Created Date Observation Date Name Description Value Unit Range Abnormal Flag Note LastModifiedBy Organization Detail LastModifiedTime 01/01/2012/31/2022 LIPID PANEL cholesterol, total 264 mg/dL 100-19 9 above high normal Not Available [facility] [address] [place], [address], 01/01/2023 06:17:29 01/01/2012/31/2022 LIPID PANEL triglyceride s 90 mg/dL 0-149 Not Available [facility] Department [address] [place], [address], 01/01/2023 06:17:29 01/01/2012/31/2022 LIPID PANEL HDL cholesterol 59 mg/dL 40-999 Not Available [facility] Department [address] [place], [address], 01/01/2023 06:17:29 01/01/20 12/31/2022 LIPID PANEL VLDL cholesterol estella 18 mg/dL 5-40 Not Available [facility] Department [address] [place] [address], [address], 01/01/2023 06:17:29 01/01/20 23 12/31/2022 LIPID PANEL LDL chol calc (nih) 201 mg/dL 0-99 above high normal Not Available [facility] Department [address] [place] [address], [address], 01/01/2023 06:17:29 01/01/20 23 12/31/2022 COMP. METAB OLIC PANEL (14) glucose 125 mg/dL 70-99 above high normal Not Available [facility] Department [address] [place] [address], [address], 01/01/2023 06:17:30 01/01/20 23 12/31/2022 COMP. METAB OLIC PANEL (14) BUN 13 mg/dL 6-24 Not Available [facility] Department [address] [place] [address], [address], 01/01/2023 06:17:30 01/01/20 23 12/31/2022 COMP. METAB OLIC PANEL (14) creatinine 0.71 mg/dL 0.76-1 .27 below low normal Not Available [facility] Department [address] [place] [address], [address], 01/01/2023 06:17:30 01/01/20 23 12/31/2022 COMP. METAB OLIC PANEL (14) eGFR 102 >=60 Units for eGFR value s are mL/mi n/1.7 3 The eGFR Calcu latio n has not been valid ated for patie nts under the age of 18. If test resul ts are displ ayed for a patie nt under the age of 18, disre jackie that value . Not Available [facility] Department [address] [place] [address], [address], 01/01/2023 06:17:30 01/01/20 23 12/31/2022 COMP. METAB OLIC PANEL (14) BUN/creatini ne ratio 19 9-23 Not Available [facility] Department [address] [place], [address], 01/01/2023 06:17:30 01/01/20 23 12/31/2022 COMP. METAB OLIC PANEL (14) sodium 140 mmol/ L 134-14 4 Not Available [facility] Department [address] [place] [address], [address], 01/01/2023 06:17:30 01/01/20 23 12/31/2022 COMP. METAB OLIC PANEL (14) potassium 4.3 mmol/ L 3.5-5. 2 Not Available [facility] Department [address] [place] [address], [address], 01/01/2023 06:17:30 01/01/20 23 12/31/2022 COMP. METAB OLIC PANEL (14) chloride 103 mmol/ L 96-106 Not Available [facility] Department [address] [place], [address], 01/01/2023 06:17:30 01/01/20 23 12/31/2022 COMP. METAB OLIC PANEL (14) carbon dioxide, total 21 mmol/ L 20-29 Not Available [facility] Department [address] [place], [address], 01/01/2023 06:17:30 01/01/20 23 12/31/2022 COMP. METAB OLIC PANEL (14) calcium 9.4 mg/dL 8.7-10 .2 Not Available [facility] Department [address] [place], [address], 01/01/2023 06:17:30 01/01/20 23 12/31/2022 COMP. METAB OLIC PANEL (14) protein, total 7.5 g/dL 6.0-8. 5 Not Available [facility] Department [address] [place] [address], [address], 01/01/2023 06:17:30 01/01/20 23 12/31/2022 COMP. METAB OLIC PANEL (14) albumin 4.6 g/dL 3.8-4. 9 Not Available [facility] Department [address] [place], [address], 01/01/2023 06:17:30 01/01/20 23 12/31/2022 COMP. METAB OLIC PANEL (14) globulin, total 2.9 g/dL 1.5-4. 5 Not Available [facility] Department [address] [place] [address], [address], 01/01/2023 06:17:30 01/01/20 23 12/31/2022 COMP. METAB OLIC PANEL (14) A/G ratio 2.0 1.2-2. 2 Not Available [facility] Department [address] [place] [address], [address], 01/01/2023 06:17:30 01/01/20 23 12/31/2022 COMP. METAB OLIC PANEL (14) bilirubin, total 0.4 mg/dL 0.0-1. 2 Not Available [facility] Department [address] [place], [address], 01/01/2023 06:17:30 01/01/20 23 12/31/2022 COMP. METAB OLIC PANEL (14) alkaline phosphatase 89 IU/L 44-121 Not Available [facility] Department [address] [place], [address], 01/01/2023 06:17:30 01/01/20 23 12/31/2022 COMP. METAB OLIC PANEL (14) AST (SGOT) 18 IU/L 0-40 Not Available [facility] Department [address] [place], [address], 01/01/2023 06:17:30 01/01/20 23 12/31/2022 COMP. METAB OLIC PANEL (14) ALT (SGPT) 20 IU/L 0-32 Not Available [facility] Department [address] [place], [address], 01/01/2023 06:17:30 01/01/20 23 12/31/2022 CBC, PLATE LET, NO DIFFE RENTI AL WBC 8.5 x10e3 /uL 3.4-10 .8 Not Available [facility] Department [address] [place], [address], 01/01/2023 06:17:31 01/01/2012/31/2022 CBC, PLATE LET, NO DIFFE RENTI AL RBC 4.35 x10e6 /uL 3.77-5 .28 Not Available [facility] Department [address] [place] [address], [address], 01/01/2023 06:17:31 01/01/20 23 12/31/2022 CBC, PLATE LET, NO DIFFE RENTI AL hemoglobin 13.0 g/dL 11.1-1 5.9 Not Available [facility] Department [address] [place], [address], 01/01/2023 06:17:31 01/01/2012/31/2022 CBC, PLATE LET, NO DIFFE RENTI AL hematocrit 41.3 % 34.0-4 6.6 Not Available [facility] Department [address] [place], [address], 01/01/2023 06:17:31 01/01/2012/31/2022 CBC, PLATE LET, NO DIFFE RENTI AL MCV 95 fL 79-97 Not Available [facility] Department [address] [place], [address], 01/01/2023 06:17:31 01/01/2012/31/2022 CBC, PLATE LET, NO DIFFE RENTI AL MCH 29.9 pg 26.6-3 3.0 Not Available [facility] Department [address] [place] [address], [address], 01/01/2023 06:17:31 01/01/2012/31/2022 CBC, PLATE LET, NO DIFFE RENTI AL MCHC 31.5 g/dL 31.5-3 5.7 Not Available [facility] Department [address] [place], [address], 01/01/2023 06:17:31 01/01/2012/31/2022 CBC, PLATE LET, NO DIFFE RENTI AL RDW 13.0 % 11.5-1 4.5 Not Available [facility] Department [address] [place], [address], 01/01/2023 06:17:31 01/01/2012/31/2022 CBC, PLATE LET, NO DIFFE RENTI AL platelets 441 x10e3 /uL 150-45 0 Not Available [facility] Department [address] [place], [address], 01/01/2023 06:17:31 01/01/2012/31/2022 CBC, PLATE LET, NO DIFFE RENTI AL NRBC 0 % 0-0 Not Available [facility] Department [address] [place], [address], 01/01/2023 06:17:31 01/01/2001/01/2023 TSH RFX ON ABNOR MAL TO FREE T4 TSH 4.670 uIU/m L 0.450- 4.500 above high normal Not Available [facility] ([facility]) [address] [facility], [place], [address], 01/01/2023 08:33:38 01/01/2001/01/2023 T4F T4,free (direct) 1.30 NG/dL 0.82-1 .77 Not Available [facility] ([facility]) [address] [facility], [place], [address], 01/01/2023 08:33:39 01/21/20 23 01/23/2023 NUSWA B BV KEN+C AND6+ CT/GC /T... atopobium vaginae Low - 0 score Not Available [facility] ([facility]) [address] [facility], [place], [address], 01/24/2023 11:16:07 01/21/20 23 01/23/2023 NUA B BV KEN+C AND6+ CT/GC /T... bvab 2 Low - 0 score Not Available [facility] ([facility]) [address] [facility], [place], [address], 01/24/2023 11:16:07 01/21/20 23 01/23/2023 NUA B BV KEN+C AND6+ CT/GC /T... megasphaera 1 Low - 0 score Calcu late total score by cholo ponce the 3 indiv idual bacte rial vagin osis (BV) marke r score s toget her. Total score is inter prete d as follo ws: Total score 0-1: Indic ates the absen ce of BV. Total score 2: Indet ermin ate for BV. Addit ional clini estella data shoul d be evalu ated to estab charles a diagn osis. Total score 3-6: Indic ates the prese nce of BV. This test was devel oped and its perfo rmanc e edda cteri stics deter mined by [facility]. It has not been clear ed or appro tiarra by the Food and Drug Admin istra tion. Not Available [facility] ([facility]) [address] [facility], [place], [address], 01/24/2023 11:16:07 01/21/20 23 01/23/2023 NUSWA B BV KEN+C AND6+ CT/GC /T... christopher albicans, KEN Negati ve negati ve Not Available [facility] ([facility]) [address] [facility], [place], [address], 01/24/2023 11:16:07 01/21/20 23 01/23/2023 NUSWA B BV KEN+C AND6+ CT/GC /T... christopher glabrata, KEN Negati ve negati ve Not Available [facility] ([facility]) [address] [facility], [place], [address], 01/24/2023 11:16:07 01/21/20 23 01/23/2023 NUSWA B BV KEN+C AND6+ CT/GC /T... trich vag by KEN Negati ve negati ve Not Available [facility] ([facility]) [address] [place], [address], 01/24/2023 11:16:07 01/21/20 23 01/23/2023 NUSWA B BV KEN+C AND6+ CT/GC /T... chlamydia trachomatis, KEN Negati ve negati ve Not Available [facility] ([facility]) [address] [facility], [place], [address], 01/24/2023 11:16:07 01/21/20 23 01/23/2023 NUSWA B BV KEN+C AND6+ CT/GC /T... neisseria gonorrhoeae, KEN Negati ve negati ve Not Available [facility] ([facility]) [address] [place], [address], 01/24/2023 11:16:07 01/21/20 23 01/23/2023 NUSWA B BV KEN+C AND6+ CT/GC /T... hsv 1 KEN Negati ve negati ve Not Available [facility] ([facility]) [address] [place], [address], 01/24/2023 11:16:07 01/21/20 23 01/23/2023 NUSWA B BV KEN+C AND6+ CT/GC /T... hsv 2 KEN Negati ve negati ve Not Available [facility] ([facility]) [address] [facility], [place], [address], 01/24/2023 11:16:07 01/21/20 23 01/24/2023 NUSWA B BV KEN+C AND6+ CT/GC /T... C parapsilosis /tropicalis Negati ve negati ve This assay does not diffe renti ate C. tropi calis and C. parap rosaline is. Not Available [facility] ([facility]) [address] [facility], [place], [address], 01/24/2023 11:16:07 01/21/20 23 01/24/2023 NUSWA B BV KEN+C AND6+ CT/GC /T... christopher lusitaniae, KEN Negati ve negati ve Not Available [facility] ([facility]) [address] [facility], [place], [address], 01/24/2023 11:16:07 01/21/20 23 01/24/2023 NUSWA B BV KEN+C AND6+ CT/GC /T... christopher krusei, KEN Negati ve negati ve Not Available [facility] ([facility]) [address] [facility], [place], [address], 01/24/2023 11:16:07 01/21/20 23 01/21/2023 TSH RFX ON ABNOR MAL TO FREE T4 TSH - uIU/m L Test not perfo rmed. No speci men recei tiarra. Not Available [facility] ([facility]) [address] [facility], [place], [address], 01/24/2023 11:16:08 01/21/20 23 01/21/2023 HEMOG LOBIN A1C hemoglobin A1C - % Test not perfo rmed. No speci men recei tiarra. Predi abete s: 5.7 - 6.4 Diabe geo: >6.4 Glyce taylor contr ol for adult s with diabe geo: <7.0 Not Available [facility] ([facility]) [address] [facility], [place], [address], 01/24/2023 11:16:09 01/21/20 23 01/21/2023 SPECI MEN STATU S REPOR T specimen status report TNP Test not perfo rmed. No speci men recei tiarra. TEST: [id number] 3 Hemog lobin A1c 59639 9 TSH Rfx on Abnor mal to Free T4 Not Available [facility] ([facility]) [address] [place], [address], 01/24/2023 11:16:07 02/04/20 23 02/04/2023 TSH RFX ON ABNOR MAL TO FREE T4 TSH 4.440 uIU/m L 0.450- 4.500 Not Available [facility] ([facility]) [address] [place], [address], 02/04/2023 06:17:35 02/04/2002/04/2023 HEMOG LOBIN A1C hemoglobin A1C 5.9 % 4.8-5. 6 above high normal Predi abete s: 5.7 - 6.4 Diabe geo: >6.4 Glyce taylor contr ol for adult s with diabe geo: <7.0 Not Available [facility] ([facility]) [address] [facility], [place], [address], 02/04/2023 06:17:36 02/01/2001/27/2023 XR, hip, unila teral No observ ation record ed. [facility] [address], [place], [address], 02/03/2023 14:15:15 Result Notes None recorded. Problems Name Problem SNOMED Code Status Onset Date Resolution Date Notes Provider Name and Address Organization Details Recorded Time Acute bronchitis 40912825 Active 2017 Carlos Fuller PA-C Attn: Pancho g,[address], [place], [address], [facility] 8 18:08:56 Attention deficit hyperactivi ty disorder, predominant ly inattentive type 19400074 Active 2017 Carlos Fuller PA-C Attn: Kathylawrence ponce,[address] [place], [address], [place] - [facility] 8 18:24:48 Pain of left hip joint 0890401049962 00 Active 2017 Carlos Fuller PA-C Attn: Accountlawrence g,[address] [place], [address], [place] [facility] 8 17:17:31 Fibromyalgi a 388878641 Active 2017 Carlos Fuller PA-C Attn: Pancho rosario,[address] [place], [address], [place] [facility] 8 17:38:52 Allergic reaction to insect bite Active 2017 Carlos Fuller PA-C Attn: Pancho ponce,[address] [place], [address], [place] [facility] 8 17:43:26 Obese 935001378 Active 2017 Carlos Fuller PA-C Attn: Pancho rosario,[address] [place], [address], [place] [facility] 8 22:44:50 Gastroesoph ageal reflux disease 866609805 Active 2017 Carlos Fuller PA-C Attn: Accountlawrence g,[address] [place], [address], [place] [facility] 8 18:31:17 Dysuria 20302053 Active 2018 Carlos Fuller PA-C Attn: Pancho g,[address] [place], [address], [place] [facility] 9 17:38:38 Insomnia 777066423 Active 2018 Carlos Fuller PA-C Attn: Pancho g,[address] [place], [address], [place] [facility] 9 17:23:14 Constipatio n 73719175 Active 2018 Carlos Fuller PA-C Attn: Accountin g,[address] [facility], [place], [address], [place] [facility] 9 12:56:04 Chronic idiopathic constipatio n 00585487 Active 2018 Carlos Fuller PA-C Attn: Accountin g,[address] [facility], [place], [address], [place] [facility] 9 12:57:56 Urinary incontinenc e 671871515 Active 2018 Carlos Fuller PA-C Attn: Accountin g,[address] [facility], [place], [address], [place] [facility] 9 13:00:27 Acute sinusitis 73784071 Active 2018 Carlos Fuller PA-C Attn: Accountin g,[address] [facility], [place], [address], [place] [facility] 9 10:37:28 COVID-19 185305730 Active 2019 Carlos Fuller PA-C Attn: Accountin g,[address] [facility], [place], [address], [place] [facility] 0 12:09:12 Pneumonia caused by SARS-CoV-2 6378322497925 29188 Active 2019 Carlos Fuller PA-C Attn: Accountin g,[address] [facility], [place], [address], [place] [facility] 0 12:10:01 Hyperlipide fermín 27943160 Active 2020 Carlos Fuller PA-C Attn: Accountin g,[address] [facility], [place], [address], [place] [facility] 1 10:51:41 High hemoglobin A1c level 333165843 Active 2020 Carlos Fuller PA-C Attn: Accountin g,[address] [facility], [place], [address], [place] [facility] 1 14:10:38 Nausea 489155368 Active 2021 Carlos Fuller PA-C Attn: Accountin g,[address] [facility], [place], [address], [place] [facility] 2 12:21:19 Prolapsed cervical interverteb ral disc 511516280 Active 2021 Carlos Fuller PA-C Attn: Accountin g,[address] [facility], [place], [address], [place] [facility] 2 16:01:02 Low back pain 896916767 Active Carlos Fuller PA-C Attn: Accountin g,[address] [facility], [place], [address], [place] [facility] 6 14:02:41 Plantar fasciitis 740731607 Active Carlos Fuller PA-C Attn: Accountin g,[address] [facility], [place], [address], [place] [facility] 5 18:51:17 Herpes simplex 90599739 Active Carlos Fuller PA-C Attn: Accountin g,[address] [facility], [place], [address], [place] [facility] 5 12:49:48 Multiple actinic keratoses 285193171 Active Carlos Fuller PA-C Attn: Accountin g,[address] [facility], [place], [address], [place] [facility] 5 11:54:23 Fracture of ankle 57283721 Active Carlos Fuller PA-C Attn: Accountin g,[address] [facility], [place], [address], [place] [facility] 5 12:49:48 Hypothyroid ism 29539211 Active Carlos Fuller PA-C Attn: Accountin g,[address] [facility], [place], [address], [place] [facility] 6 10:44:46 Acute urinary tract infection 734253815 Active Carlos Fuller PA-C Attn: Accountin g,[address] [facility], [place], [address], [place] [facility] 6 17:18:27 Vitamin B12 level below reference range 442950679 Active Carlos Fuller PA-C Attn: Accountin g,[address] [facility], [place], [address], [place] [facility] 6 12:43:51 Vitamin D deficiency 13144074 Active Carlos Fuller PA-C Attn: Accountin g,[address] [facility], [place], [address], [place] [facility] 6 12:51:01 Anemia 526025794 Active Carlos Fuller PA-C Attn: Accountin g,[address] [facility], [place], [address], [place] [facility] 6 12:51:01 Vaginitis and vulvovagini tis Active Carlos Fuller PA-C Attn: Accountin g,[address] [facility], [place], [address], [place] [facility] 6 17:18:27 Upper respiratory infection 15236474 Active Carols Fuller PA-C Attn: Accountin g,[address] [facility], [place], [address], [place] [facility] 6 12:00:46 Bronchitis 79256701 Active Carlos Fuller PA-C Attn: Accountin g,[address] [facility], [place], [address], [place] [facility] 6 14:31:51 Vertigo 076917802 Active Carlos Fuller PA-C Attn: Accountin g,[address] [facility], [place], [address], [place] [facility] 6 18:12:53 Allergic rhinitis 80909593 Active 2016 Carlos Fuller PA-C Attn: Pancho ponce,[address] [facility], [place], [address], [facility] 7 17:10:30 Screening for disorder Active 2016 Carlos Fuller PA-C Attn: Pancho ponce,[address] [facility], [place], [address], [place] [facility] 7 17:13:58 Depressive disorder 53392084 Active 2016 Carlos Fuller PA-C Attn: Pancho ponce,[address] [place], [address], [facility] 7 16:59:29 Sinusitis 61437782 Active 2016 Carlos Fuller PA-C Attn: Pancho ponce,[address] [place], [address], [facility] 7 16:10:10 Problem Notes None recorded. Procedures Surgical History None recorded. Imaging Results Imaging Date Name Status LastModified by Organiz ation Details LastModified Time 01/27/2023 XR, hip, unilateral completed [place] [address] [facility] [address], [address], 02/03/2023 14:15:15 Procedure Notes None recorded. Medical Equipment None Reported. Allergies Allergen ID Allergen Name Allergen Category Reaction Reaction Severity Criticality Documentation Date Start Date Code Code System Note Provider Name and Address Organization Details Recorded Time 86012 Substance with sulfonami de structure and antibacte rial mechanism of action (substanc e) medicatio n edema moderate Not available 05/20/20162016 40963 8003 SNOMED Not Available Not Available Not Available Medications Name Sig Start Date Stop Date Status Note LastModified by Organization Details LastModified Time cyclobenzap rine 10 mg tablet TAKE 1 TABLET BY MOUTH ONCE DAILY AT BEDTIME 07/02 completed Not Available Not Available Not Available amoxicillin 500 mg capsule 01/05 completed Not Available Not Available Not Available lamotrigine 150 mg tablet 07/02 completed Not Available Not Available Not Available promethazin e-DM 6.25 mg-15 mg/5 mL oral syrup Take 5 mL 4 times a day by oral route as needed for 10 days. 01/20 completed Not Available Not Available Not Available levothyroxi ne 137 mcg tablet TAKE ONE TABLET BY MOUTH IN THE MORNING 12/15 completed Not Available Not Available Not Available clonidine HCl 0.1 mg tablet TAKE 1 TABLET BY MOUTH TWICE DAILY 01/20 completed Not Available Not Available Not Available lamotrigine 200 mg tablet 07/02 completed Not Available Not Available Not Available ipratropium 0.5 mg-albutero l 3 mg (2.5 mg base)/3 mL nebulizatio n soln USE 1 AMPULE IN NEBULIZER EVERY 6 HOURS NEEDED active Not Available Not Available No t Available BD Insulin Syringe 1 mL 25 x 1 USE FOR TESTOSTER ONE/ESTRA DIOL INJECTION S EVERY 3 WEEKS 07/02 completed Not Available Not Available Not Available trazodone 50 mg tablet TAKE 1 TABLET BY MOUTH AT BEDTIME NEEDED active Not Available Not Available No t Available cetirizine 10 mg tablet TAKE 1 TABLET BY MOUTH ONCE DAILY active Not Available Not Available No t Available azithromyci n 250 mg tablet TAKE 2 TABLETS BY MOUTH ON DAY 1 AND THEN TAKE 1 TABLET BY MOUTH ONCE A DAY ON DAY 2 THROUGH DAY 5 05/07 completed Not Available Not Available Not Available ibuprofen 800 mg tablet TAKE 1 TABLET BY MOUTH THREE TIMES DAILY WITH FOOD active Not Available Not Available No t Available alprazolam 1 mg tablet 12/15 completed Not Available Not Available Not Available fluconazole 150 mg tablet TAKE 1 TABLET BY MOUTH THREE TIMES A WEEK FOR 7 DAYS NEEDED ONLY FOR YEAST VAGINITIS 07/02 completed Not Available Not Available Not Available benzonatate 200 mg capsule TAKE 1 CAPSULE BY MOUTH THREE TIMES DAILY NEEDED FOR COUGH 07/21 completed Not Available Not Available Not Available diclofenac ER 100 mg tablet,exte nded release 24 hr 07/02 completed Not Available Not Available Not Available hydrocodone 5 mg-acetamin ophen 325 mg tablet TAKE 1 TABLET BY MOUTH TWICE DAILY NEEDED active Not Available Not Available No t Available phenazopyri dine 200 mg tablet Take 1 tablet 3 times a day by oral route for 2 days. 07/02 completed Not Available Not Available Not Available famotidine 40 mg tablet TAKE 1 TABLET BY MOUTH ONCE DAILY BEFORE MEAL(S) 07/02 completed Not Available Not Available Not Available prednisone 20 mg tablet TAKE 2 TABLETS BY MOUTH ONCE DAILY FOR 5 DAYS active Not Available Not Available No t Available clindamycin HCl 150 mg capsule 12/15 completed Not Available Not Available Not Available meclizine 12.5 mg tablet TAKE ONE TABLET BY MOUTH THREE TIMES DAILY MAY TAKE 2 TABLETS BY MOUTH AT ONCE NEEDED AVOID SALT 07/02 completed Not Available Not Available Not Available metronidazo le 500 mg tablet TAKE 1 TABLET BY MOUTH TWICE DAILY FOR 5 DAYS active Not Available Not Available No t Available hydroxyzine HCl 50 mg tablet 07/02 completed Not Available Not Available Not Available prochlorper azine maleate 10 mg tablet 07/02 completed Not Available Not Available Not Available allopurinol 100 mg tablet TAKE 1 TABLET BY MOUTH ONCE DAILY active Not Available Not Available No t Available valacyclovi r 500 mg tablet Take by oral route for 7 days. active Not Available Not Available No t Available ciprofloxac in 500 mg tablet Take 1 tablet every 12 hours by oral route for 10 days. 07/02 completed Not Available Not Available Not Available sulfamethox azole 800 mg-trimetho prim 160 mg tablet Take 1 tablet every 12 hours by oral route for 10 days. 05/25 completed Not Available Not Available Not Available liothyronin e 5 mcg tablet TAKE 2 TABLETS BY MOUTH ONCE DAILY ON AN EMPTY STOMACH 07/21 completed Not Available Not Available Not Available Gentak 0.3 % (3 mg/gram) eye ointment 07/02 completed Not Available Not Available Not Available levothyroxi ne 25 mcg tablet 12/15 completed Not Available Not Available Not Available baclofen 20 mg tablet 07/02 completed Not Available Not Available Not Available levothyroxi ne 75 mcg tablet Take 1 tablet every day by oral route for 90 days. 07/02 completed Not Available Not Available Not Available BD Tuberculin Syringe 1 mL 27 x 1/2 active Not Available Not Available Not Available BD Regular Bevel [place] 18 gauge x 1 active Not Available Not Available N ot Available ofloxacin 0.3 % ear drops INSTILL 5 DROPS INTO RIGHT EAR TWICE DAILY FOR 7 DAYS active Not Available Not Available No t Available amoxicillin 875 mg tablet TAKE 1 TABLET BY MOUTH TWICE DAILY FOR 10 DAYS 02/12 completed Not Available Not Available Not Available citalopram 20 mg tablet Take 1 tablet every day by oral route in the evening for 30 days. 01/20 completed Not Available Not Available Not Available DOK 100 mg capsule Take 1 capsule twice a day by oral route as needed for 30 days. 07/02 completed Not Available Not Available Not Available Euthyrox 112 mcg tablet TAKE 1 TABLET BY MOUTH ONCE DAILY IN THE MORNING 07/02 completed Not Available Not Available Not Available meclizine 25 mg tablet active Not Available Not Available Not Available phenazopyri dine 100 mg tablet 07/02 completed Not Available Not Available Not Available baclofen 10 mg tablet TAKE 1 TABLET BY MOUTH THREE TIMES DAILY NEEDED 05/07 completed Not Available Not Available Not Available benzonatate 100 mg capsule TAKE 2 CAPSULES BY MOUTH THREE TIMES DAILY NEEDED 07/02 completed Not Available Not Available Not Available levothyroxi ne 50 mcg tablet TAKE 1 TABLET BY MOUTH ONCE DAILY ON AN EMPTY STOMACH active Not Available Not Available No t Available hydrocodone 7.5 mg-acetamin ophen 325 mg tablet TAKE 1 TABLET BY MOUTH TWICE DAILY NEEDED MUST LAST 30 DAYS 07/02 completed Not Available Not Available Not Available cephalexin 500 mg capsule TAKE 1 CAPSULE BY MOUTH EVERY 12 HOURS FOR 10 DAYS 01/20 completed Not Available Not Available Not Available pantoprazol e 40 mg tablet,sunshine yed release TAKE 1 TABLET BY MOUTH ONCE DAILY BEFORE MEAL(S) 01/20 completed Not Available Not Available Not Available diphenhydra mine 25 mg capsule Take 1 capsule every day by oral route at bedtime for 30 days. 05/07 completed Not Available Not Available Not Available cyanocobala min (vit B-12) 1,000 mcg/mL injection solution INJECT 1 ML INTRAMUSC ULARLY ONCE A WEEK active Not Available Not Available No t Available ferrous sulfate 325 mg (65 mg iron) tablet Take 1 tablet twice a day by oral route with meals for 30 days. 07/02 completed Not Available Not Available Not Available levothyroxi ne 125 mcg tablet TAKE 1 TABLET BY MOUTH ONCE DAILY IN THE MORNING ON AN EMPTY STOMACH 01/03 completed Not Available Not Available Not Available nitrofurant oin macrocrysta l 100 mg capsule 05/25 completed Not Available Not Available Not Available ranitidine 150 mg tablet Take 1 tablet twice a day by oral route before meals for 30 days. 01/06 completed Not Available Not Available Not Available levothyroxi ne 150 mcg tablet Take 1 tablet every day by oral route for 30 days. 12/15 completed Not Available Not Available Not Available divalproex 125 mg tablet,sunshine yed release TAKE 1 TABLET BY MOUTH TWICE DAILY 07/21 completed Not Available Not Available Not Available Advair Diskus 250 mcg-50 mcg/dose powder for inhalation INHALE 1 PUFF BY MOUTH TWICE DAILY active Not Available Not Available No t Available clotrimazol e 1 % topical solution APPLY 4 DROPS TO THE AFFECTED EAR EXTERNALL Y TWICE DAILY FOR 10 DAYS active Not Available Not Available No t Available BD Luer-Mulu Syringe 3 mL 25 gauge x 1 USE 1 SYRINGE ONCE A WEEK FOR B12 INJECTION S active Not Available Not Available No t Available omeprazole 20 mg capsule,del ayed release Take 1 capsule by mouth once daily active Not Available Not Available No t Available folic acid 1 mg tablet active Not Available Not Available Not Available codeine 10 mg-guaifene sin 100 mg/5 mL oral liquid TAKE 10 ML BY MOUTH EVERY 4 HOURS NEEDED 01/20 completed Not Available Not Available Not Available acyclovir 200 mg capsule TAKE 1 CAPSULE BY MOUTH FIVE TIMES DAILY FOR 5 DAYS 01/20 completed Not Available Not Available Not Available gabapentin 100 mg capsule 07/02 completed Not Available Not Available Not Available ergocalcife rol (vitamin D2) 1,250 mcg (50,000 unit) capsule TAKE 1 CAPSULE BY MOUTH ONCE A WEEK 07/21 completed Not Available Not Available Not Available testosteron e cypionate 200 mg/mL intramuscul ar oil INJECT 0.25 ML (CC) INTRAMUSC ULARLY ONCE EVERY 3 WEEKS active Not Available Not Available No t Available methylpredn isolone 4 mg tablets in a dose pack TAKE BY MOUTH DIRECTED ON INSIDE OF PACKAGE active Not Available Not Available No t Available albuterol sulfate HFA 90 mcg/actuati on aerosol inhaler INHALE 2 PUFFS BY MOUTH 4 TIMES DAILY NEEDED active Not Available Not Available No t Available BD Luer-Mulu Syringe 3 mL 18 x 1 1/2 USE TO DRAW TESTOSTER ONE AND ESTRADIOL FROM VIAL. CHANGE TO 25 G TO INJECT active Not Available Not Available No t Available ondansetron 4 mg disintegrat ing tablet DISSOLVE 1 TABLET IN MOUTH THREE TIMES DAILY NEEDED 01/20 completed Not Available Not Available Not Available fluticasone propionate 50 mcg/actuati on nasal spray,suspe nsion USE 2 SPRAY(S) IN EACH NOSTRIL ONCE DAILY active Not Available Not Available No t Available metformin ER 500 mg tablet,exte nded release 24 hr TAKE 2 TABLETS BY MOUTH ONCE DAILY WITH EVENING MEAL active Not Available Not Available No t Available sertraline 50 mg tablet 01/20 completed Not Available Not Available Not Available Depo-Estrad iol 5 mg/mL intramuscul ar oil INJECT 0.5ML INTRAMUSC ULARLY EVERY 2-3 WEEKS active Not Available Not Available No t Available lamotrigine 100 mg tablet 07/02 completed Not Available Not Available Not Available ipratropium bromide 21 mcg (0.03 %) nasal spray 07/02 completed Not Available Not Available Not Available loratadine 10 mg tablet TAKE 1 TABLET BY MOUTH ONCE DAILY FOR 30 DAYS 07/21 completed Not Available Not Available Not Available naproxen 500 mg tablet TAKE 1 TABLET BY MOUTH TWICE DAILY WITH FOOD active Not Available Not Available No t Available spironolact one 50 mg tablet TAKE 1 TABLET BY MOUTH ONCE DAILY IN THE MORNING active Not Available Not Available No t Available progesteron e micronized 100 mg capsule TAKE 1 CAPSULE BY MOUTH ONCE DAILY IN THE EVENING active Not Available Not Available No t Available amoxicillin 875 mg-potassiu m clavulanate 125 mg tablet TAKE 1 TABLET BY MOUTH EVERY 12 HOURS FOR 10 DAYS active Not Available Not Available No t Available amoxicillin 500 mg-potassiu m clavulanate 125 mg tablet Take 1 tablet every 12 hours by oral route as directed for 10 days. 07/21 completed Not Available Not Available Not Available tobramycin 0.3 %-dexametha sone 0.1 % eye drops,suspe nsion 07/02 completed Not Available Not Available Not Available dextroamphe tamine-amph etamine ER 15 mg 24hr capsule,ext end release TAKE 1 CAPSULE BY MOUTH ONCE DAILY IN THE MORNING active Not Available Not Available No t Available aripiprazol e 5 mg tablet TAKE 1 TABLET BY MOUTH ONCE DAILY 05/07 completed Not Available Not Available Not Available ciprofloxac in 0.3 %-dexametha sone 0.1 % ear drops,suspe nsion INSTILL 4 DROPS INTO RIGHT EAR TWICE DAILY FOR 7 DAYS active Not Available Not Available No t Available rosuvastati n 20 mg tablet Take 1 tablet by mouth once daily active Not Available Not Available No t Available bupropion HCl XL 150 mg 24 hr tablet, extended release TAKE 1 TABLET BY MOUTH ONCE DAILY IN THE MORNING 07/02 completed Not Available Not Available Not Available nitrofurant oin monohydrate /macrocryst als 100 mg capsule 05/25 completed Not Available Not Available Not Available duloxetine 30 mg capsule,del ayed release Take 1 capsule every day by oral route for 7 days. 07/26 completed Not Available Not Available Not Available duloxetine 60 mg capsule,del ayed release TAKE 1 CAPSULE BY MOUTH ONCE DAILY 05/07 completed Not Available Not Available Not Available solifenacin 10 mg tablet TAKE 1 TABLET BY MOUTH ONCE DAILY FOR 30 DAYS 07/02 completed Not Available Not Available Not Available darifenacin ER 15 mg tablet,exte nded release 24 hr TAKE 1 TABLET BY MOUTH ONCE DAILY 07/02 completed Not Available Not Available Not Available Lyrica 50 mg capsule Take 1 capsule every day by oral route at bedtime for 7 days. 07/21 completed Not Available Not Available Not Available Lyrica 100 mg capsule Take 1 capsule every day by oral route at bedtime for 30 days. 07/02 completed Not Available Not Available Not Available Lyrica 150 mg capsule Take 1 capsule twice a day by oral route for 30 days. 07/02 completed Not Available Not Available Not Available aripiprazol e 2 mg tablet Take 1 tablet every day by oral route for 30 days. 05/07 completed Not Available Not Available Not Available cholecalcif marce (vitamin D3) 1,250 mcg (50,000 unit) capsule Take 1 capsule every week by oral route with meals for 30 days. 07/02 completed Not Available Not Available Not Available diclofenac 1 % topical gel APPLY 2 GRAM TO THE AFFECTED AREA(S) BY TOPICAL ROUTE 4 TIMES PER DAY 07/02 completed Not Available Not Available Not Available Linzess 145 mcg capsule Take 1 capsule every day by oral route in the morning for 30 days. 07/02 completed Not Available Not Available Not Available Stimulant Laxative Plus 8.6 mg-50 mg tablet 07/02 completed Not Available Not Available Not Available naloxone 4 mg/actuatio n nasal spray CALL 911. SPR CONTENTS OF ONE SPRAYER (0.1ML) INTO ONE NOSTRIL. REPEAT IN 2-3 MIN IF SYMPTOMS OF OPIOID EMERGENCY PERSIST, ALTERNATE NOSTRILS active Not Available Not Available No t Available Vraylar 1.5 mg capsule TAKE 1 CAPSULE BY MOUTH ONCE DAILY FOR 30 DAYS active Not Available Not Available No t Available Vraylar 4.5 mg capsule TAKE 1 CAPSULE BY MOUTH ONCE DAILY FOR 30 DAYS 12/30 completed Not Available Not Available Not Available Vraylar 3 mg capsule 07/02 completed Not Available Not Available Not Available Linzess 72 mcg capsule TAKE 1 CAPSULE BY MOUTH ONCE DAILY FOR 1 MONTH 07/21 completed Not Available Not Available Not Available UltiCare Safety Syringe 3 mL 23 gauge x 1 active Not Available Not Available Not Available Ozempic 0.25 mg or 0.5 mg (2 mg/1.5 mL) subcutaneou s pen injector active Not Available Not Available Not Available Caplyta 42 mg capsule TAKE 1 CAPSULE BY MOUTH ONCE DAILY active Not Available Not Available No t Available ID NOW COVID-19 Test Kit TEST DIRECTED 07/02 completed Not Available Not Available Not Available Ozempic 1 mg/dose (4 mg/3 mL) subcutaneou s pen injector INJECT 1 MG SUBCUTANE OUSLY ONCE A WEEK active Not Available Not Available No t Available Ozempic 2 mg/dose (8 mg/3 mL) subcutaneou s pen injector active Not Available Not Available Not Available Caplyta 10.5 mg capsule TAKE 1 CAPSULE BY MOUTH ONCE DAILY 07/21 completed Not Available Not Available Not Available Caplyta 21 mg capsule TAKE 1 CAPSULE BY MOUTH ONCE DAILY active Not Available Not Available No t Available Ozempic 0.25 mg or 0.5 mg (2 mg/3 mL) subcutaneou s pen injector active Not Available Not Available Not Available Vitals Date Recorded Body height Body mass index (BMI) Body weight Oxygen saturation Oxygen saturation in Arterial blood by Pulse oximetry Heart rate Systolic blood pressure Diastolic blood pressure Provider Name and Address Organization Details Last Updated DateTime 3 165.1 cm 30.5 kg/m2 21042.4 g 98 % 98 % 81 /min 122 mm[Hg] 78 mm[Hg] Therese Jessica [facility] 3 12:20:19 Date Recorded Body height Body mass index (BMI) Body weight Oxygen saturation Oxygen saturation in Arterial blood by Pulse oximetry Heart rate Respiratory rate Systolic blood pressure Diastolic blood pressure Provider Name and Address Organization Details Last Updated DateTime 3 165.1 cm 30.1 kg/m2 88907.2 2 g 98 % 98 % 80 /min 18 /min 122 mm[Hg] 78 mm[Hg] Therese Jessica [facility] 3 11:47:44 Date Recorded Body height Body mass index (BMI) Body weight Oxygen saturation Oxygen saturation in Arterial blood by Pulse oximetry Heart rate Systolic blood pressure Diastolic blood pressure Provider Name and Address Organization Details Last Updated DateTime 3 165.1 cm 31.8 kg/m2 20656.1 4 g 99 % 99 % 75 /min 130 mm[Hg] 80 mm[Hg] Therese Jessica [facility] 3 14:26:08 Date Recorded Body height Body mass index (BMI) Body weight Oxygen saturation Oxygen saturation in Arterial blood by Pulse oximetry Heart rate Systolic blood pressure Diastolic blood pressure Provider Name and Address Organization Details Last Updated DateTime 3 165.1 cm 31.3 kg/m2 92319.3 7 g 99 % 99 % 77 /min 128 mm[Hg] 80 mm[Hg] Therese Jessica [facility] 3 12:05:08 Date Recorded Body height Provider Name an d Address Organization Details Last Updated DateTime 07/22/2023 165.1 cm Orquidea Lira on, [facility] 07/22/2023 11:24:22 Social History Question Answer Notes LastModified by Organizat ion Details LastModified Time Tobacco Smoking Status Former Smoker Quit in 2001 JUDAH Scott, [facility] 02/07/2015 12:24:56 Do You Or Have You Ever Used E-cigarettes Or Vape? Current User Of Electronic Cigarettes Information not available 08/15/2021 What Was The Date Of Your Most Recent Tobacco Screening? 03/14/2023 [email or web address] Information not available 03/14/2023 How Many Years Have You Smoked Tobacco? 6 [email or web address] Information not available 02/07/2015 Do You Or Have You Ever Used Any Other Forms Of Tobacco Or Nicotine? Yes Information not available 08/15/2021 Sex: Unknown Functional Status None recorded. Mental Status None recorded. Family History Nothing Reported. Medical History Condition Response Anxiety Disorder Y Allergies Y Gynecological HistoryNo gynecological history recorded. 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 no outbreaks Multiple a ctinic keratoses 991239860 Fracture of ankle 75575719 June 2014, no pins. Hypothyroidism 27113307 Screening for disorder 097920502 exposed to 2 guys she dated had hepatitis c , neg x 3 . 4 months ago last test Active or passive immunization 073124365 [id number] ANIA Tripathi (Adult Med) [address] [place] [address] [id number] 0 03/07/2015 11:33:27 03/07/2015 17:55:17 Hypothyroidism 48131861 E03.9 Active or passive immunization 691491204 Z23 Low back pain 654917559 M54.5 Multiple a ctinic keratoses 077450456 L57.0 [id number] ANIA Tripathi (Adult Med) [address] [place] [address] [id number] 0 05/31/2015 11:23:49 05/31/2015 16:06:21 Hypothyroidism 28824195 E03.9 Low back pain 655674552 M54.5 Vitamin B1 2 level below reference range 640883752 R79.9 Vitamin D deficiency 347 10404 E55.9 Anemia 516971047 D64.9 [id number] ANIA Tripathi (Adult Med) [address] [place] [address] [id number] 0 07/24/2015 12:09:21 07/24/2015 14:58:46 Anemia 952971195 D64.9 Vitamin B1 2 level below reference range 240637683 R79.9 Hypothyroidism 02909936 E03.9 Low back pain 651109721 M54.5 Vitamin D deficiency 347 55438 E55.9 [id number] ANIA Tripathi (Adult Med) [address] [place] [address] [id number] 10/16/2015 12:03:45 10/17/2015 10:01:03 Hypothyroidism 72821881 E03.9 Anemia 708583953 D64.9 Low back pain 087429528 M54.5 Vitamin D deficiency 347 90168 E55.9 [id number] ANIA Tripathi (Adult Med) [address] [place] [address] [id number] 0 03/22/2016 10:08:58 03/22/2016 11:25:13 Low back pain 042032744 M54.5 Vitamin D deficiency 347 89335 E55.9 Hypothyroidism 48659808 E03.9 Anemia 290849771 D64.9 Vitamin B1 2 level below reference range 557449272 R79.9 [id number] ANIA Tripathi (Adult Med) [address] [place] [address] [id number] 11/07/2016 16:24:05 11/08/2016 09:31:39 Hypothyroidism 13815576 E03.9 Vitamin D deficiency 347 56547 E55.9 Vitamin B1 2 level below reference range 513951454 R79.9 Low back pain 356784036 M54.5 Allergic rhinitis 814237 04 J30.9 Screening for disorder 375473332 Z13.9 exposed to 2 guys she dated had hepatitis c , neg x 3 . 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 Hypothyroidism 68445333 E03.9 Vitamin D deficiency 347 31003 E55.9 [id number] ANIA Tripathi (Adult Med) [address] [place] [address] [id number] 0 10/10/2017 16:57:01 10/10/2017 17:26:54 Pain of left hip joint 6097029531 70851 M25.010 [id number] ANIA Tripathi (Adult Med) [address] [place] [address] [id number] 0 01/05/2018 16:43:27 01/06/2018 08:28:00 Fibromyalgia 318661396 M79.7 Allergic r eaction to insect bite 829451654 T78.40XA Depressive disorder 3548 9007 F32.89 Vitamin D deficiency 347 24283 E55.9 Obese 250212337 E66.9 Pain of le ft hip joint 5393647861 73244 M25.552 Plantar fasciitis 395446 [address] mora Low back pain 688016919 M54.5 Hypothyroidism 76698308 E03.9 [id number] ANIA Tripathi (Adult Med) [address] [place] [address] [id number] 0 02/17/2018 18:03:14 02/19/2018 16:00:35 Fibromyalgia 000311172 M79.7 Gastroesop hageal reflux disease 057685991 K21.9 Anemia 188522718 D64.9 Vitamin D deficiency 347 32582 E55.9 Hypothyroidism 92688401 E03.9 Obese 213326531 E66.9 Depressive disorder 3548 9007 F32.89 Low back pain 842647277 M54.5 [id number] Leon (Adult Med) [address] [place] [address] [id number] 0 12/15/2018 16:42:56 12/16/2018 09:36:06 Attention deficit hyperactivity disorder, predominantly inattentive type 38540573 F90.0 Depressive disorder 3548 9007 F32.89 Hypothyroidism 98728269 E03.9 Vitamin D deficiency 347 30080 E55.9 Fibromyalgia 049296220 M 79.7 Insomnia 432862542 G47.0 0 Pain of le ft hip joint 3480708076 18659 M25.132 [id number] ANIA Tripathi (Adult Med) [address] [place] [address] [id number] 01/08/2019 12:10:38 01/08/2019 14:41:57 Constipation 16583681 K59.00 Chronic id iopathic constipation 10186373 K59.04 Urinary incontinence 165 788830 R32 Depressive disorder 3548 9007 F32.89 Insomnia 604877687 G47.0 0 Gastroesop hageal reflux disease 764829090 K21.9 Vitamin D deficiency 347 68432 E55.9 Hypothyroidism 45250170 E03.9 Allergic rhinitis 609971 04 J30.9 [id number] ANIA Tripathi (Adult Med) [address] [place] [address] [id number] 0 01/19/2019 11:04:08 01/20/2019 09:47:44 Pain of left hip joint 2167582450 37273 M25.552 Insomnia 459516991 G47.0 0 Gastroesop hageal reflux disease 400974679 K21.9 Depressive disorder 3548 9007 F32.89 Allergic rhinitis 294766 04 J30.9 Anemia 271870656 D64.9 Low back pain 327570739 M54.5 Vitamin D deficiency 347 15644 E55.9 Hypothyroidism 43452623 E03.9 [id number] ANIA Tripathi (Adult Med) [address] [place] [address] [id number] 0 01/07/2020 16:55:41 01/10/2020 17:55:49 Low back pain 605632204 M54.5 Gastroesop hageal reflux disease 820910634 K21.9 Urinary incontinence 165 245990 R32 Chronic id iopathic constipation 69547156 K59.04 Insomnia 395440200 G47.0 0 Fibromyalgia 561288344 M 79.7 Depressive disorder 3548 9007 F32.89 Allergic rhinitis 510189 04 J30.9 Vitamin B1 2 level below reference range 737914744 R79.9 Vitamin D deficiency 347 72510 E55.9 Hypothyroidism 12177616 E03.9 [id number] MD Leon Ramirez (Adult Med) [address] [place] [address] [id number] 0 03/08/2020 12:14:02 03/09/2020 11:30:27 COVID-19 319098687 U07.1 Discussed with patient, agreed to try medication s as ordered, also been advised to go to close ER any time for any concern. [id number] ANIA Tripathi (Adult Med) [address] [place] [address] [id number] 07/21/2020 08:11:40 07/21/2020 11:08:19 Allergic rhinitis 08264827 J30.9 Anemia 156931289 D64.9 Attention deficit hyperactivity disorder, predominantly inattentive type 93053945 F90.0 Chronic id iopathic constipation 69566604 K59.04 Vitamin B1 2 level below reference range 497999172 R79.9 Depressive disorder 3548 9007 F32.89 Fibromyalgia 886568244 M 79.7 Gastroesop hageal reflux disease 510949304 K21.9 Hypothyroidism 94660449 E03.9 Insomnia 722789508 G47.0 0 Low back pain 321832728 M54.5 Vitamin D deficiency 347 53005 E55.9 Hyperlipidemia 29254131 E78.5 [id number] ANIA Tripathi (Adult Med) [address] [place] [address] [id number] 0 08/15/2021 12:00:06 08/16/2021 11:19:22 Sinusitis 99493108 J32.9 Low back pain 360889651 M54.[address] Fuller is out of the office, to prevent interrupti on of therapy and withdrawal , I have refilled the Hydrocodon eILPMP reviewedUD S neededCDA 01/18/2019 Acute sinusitis 00436054 J01.90 Allergic rhinitis 113773 04 J30.9 Insomnia 163523604 G47.0 0 Gastroesop hageal reflux disease 262225074 K21.9 Nausea 415682078 R11.0 Hypothyroidism 68747768 E03.9 High hemog lobin A1c level 827819138 R73.09 Hyperlipidemia 54352703 E78.5 Vitamin B1 2 level below reference range 162745872 R79.9 Depressive disorder 3548 9007 F32.89 Fibromyalgia 783933241 M 79.7 Vitamin D deficiency 347 15683 E55.9 [id number] ANIA Tripathi (Adult Med) [address] [place] [address] [phone] 02/26/2022 10:38:25 02/27/2022 13:14:17 Acute bronchitis 51112721 J20.9 Allergic rhinitis 396489 04 J30.9 Vitamin B1 2 level below reference range 019011607 R79.9 Fibromyalgia 972032687 M 79.7 Gastroesop hageal reflux disease 680635624 K21.9 Hyperlipidemia 33348923 E78.5 Hypothyroidism 88481483 E03.9 Insomnia 561199553 G47.0 0 Prolapsed cervical intervertebral disc 110666271 M50.20 Vitamin D deficiency 347 32104 E55.9 [id number] MD Leon Boyd (Adult Med) [address] [place] [address] [phone] 0 07/02/2022 10:51:52 07/03/2022 10:26:01 Obesity 055229340 E66.9 Depression screening 171 985215 Z13.31 1 Acute otit is externa of right ear 2830090491 654555 H60.501 Gastroesop hageal reflux disease without esophagitis 492984687 K21.9 Chronic cough 55946134 R 05.3 Dyspnea 921523883 R06.00 Continue Albuterol inhaler as needed. Acute bact erial sinusitis 32981176 J01.90 Adjustment disorder with depressed mood 28443324 F43.21 Body mass index 30+ - obesity 671956057 Z68.30 [id number] MD Leon Boyd (Adult Med) [address] [place] [address] [phone] 0 12/30/2022 14:58:21 01/03/2023 10:28:36 Obesity 866925940 E66.9 Pain in ri ght hip joint 4192940998 52736 M25.551 Proceed with x-ray for further evaluation . Follow up in two weeks. Hypothyroidism 81107898 E03.9 Has not been taking medication . Will return tomorrow morning for fasting labs and TSH. Difficulty sleeping 3013 62306 Z72.820 Hyperlipid emia screening 164836624 Z13.654 [id number] MD Leon Boyd (Adult Med) [address] [place] [address] [phone] 01/20/2023 12:10:13 01/21/2023 10:31:52 Abnormal vaginal odor 75315058 N89.8 Serous otitis media 8032 7007 H65.01 Pain in right ear and right side of jaw and mouth. Not clear if oral pain is due to ear, but that is the only abnormalit y on exam, and oral pain is improving. Will treat with antibiotic . Advised patient to seek immediate medical attention if she develops any skin lesions, since we discussed the possibilit y that symptoms could be early signs of shingles. She will follow up in two weeks. Hyperglycemia 23405460 R 73.9 Elevated fasting glucose. Will check Hemoglobin A1C. Serum thyr oid stimulating hormone level outside reference range 122013398 R89.1 Patient would like to be treated with thyroid medication . TSH was barely elevated. Will repeat TSH. Hypercholesterolemia 136 39187 E78.00 LDL greater than 190. Will start high dose lipid. Repeat chlolester ol and check LFTs in eight weeks. Pain in ri ght hip joint 9436791852 22233 M25.551 Will get right hip xray. Will get records from pain management person. Painful mouth 988176371 K13.79 Unsure of etiology. Some symptoms sounded neurologic but her exam was normal. She has no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
--- OUTSIDE RECORDS SUMMARY | 2024-06-16 16:31 | XMS_ITS | Clinical Summary ---
Author Organization [facility] Address Formerly [facility] [place] [address] Care Team Providers Care Cat Hooker Name Role Phone Ele Green MD Primary Care Provider Allergies Active Allergy Reactions Criticality Noted Date Comments Sulfa (Sulfonamide Antibiotics) Swelling Medium 01/2017 Medications albuterol HFA (PROVENTIL HFA,VENTOLIN HFA,PROAIR HFA) 90 mcg/actuation inhaler albuterol sulfate HFA 90 mcg/actuation aerosol inhaler INHALE 2 PUFFS BY MOUTH FOUR TIMES DAILY NEEDED FOR SHORTNESS OF BREATH OR WHEEZING Active estradiol cypionate (Depo-Estradio L) 5 mg/mL injection Depo-Estradiol 5 mg/mL intramuscular oil INJECT 0.5 ML INTRAMUSCULARLY EVERY 2-3 WEEKS Active semaglutide (Ozempic) 1 mg/dose (4 mg/3 mL) pen injector injection Ozempic 1 mg/dose (4 mg/3 mL) subcutaneous pen injector INJECT 1 MG SUBCUTANEOUSLY ONCE A WEEK Active BD Luer-Mulu Syringe 3 mL 18 x 1 1/2 syringe USE TO DRAW TESTOSTERONE AND ESTRADIOL FROM VIAL. CHANGE TO 25 G TO INJECT 06/22/19 23 Active traZODone (DESYREL) 50 mg tablet trazodone 50 mg tablet Active Vraylar 1.5 mg capsule TAKE 1 CAPSULE BY MOUTH ONCE DAILY FOR 30 DAYS 09/08/19 23 Active omeprazole (PriLOSEC) 20 mg capsule Take 2 capsules (40 mg total) by mouth daily 60 capsule 11 05/20 23 Active budesonide-for moteroL (SYMBICORT) 160-4.5 mcg/actuation inhaler Inhale 2 puffs 2 (two) times a day Rinse mouth with water after use. Do not swallow. 1 each 09/14/19 23 Active fluticasone propion-salmet Speedy (ADVAIR DISKUS) 250-50 mcg/dose diskus inhaler Inhale 1 puff 2 (two) times a day Active lumateperone (Caplyta) 10.5 mg capsule Take 1 capsule by mouth daily Active metroNIDAZOLE (FLAGYL) 500 mg tablet Take 1 tablet (500 mg total) by mouth Active allopurinoL (ZYLOPRIM) 100 mg tablet Take 1 tablet (100 mg total) by mouth daily Active HYDROcodone-ac etaminophen (NORCO) 5-325 mg per tablet Take 1 tablet by mouth 2 (two) times a day as needed 06/04/19 24 Active naloxone (NARCAN) 4 mg/actuation spray,non-aero daniel CALL 911. SPR CONTENTS OF ONE SPRAYER (0.1ML) INTO ONE NOSTRIL. REPEAT IN 2-3 MIN IF SYMPTOMS OF OPIOID EMERGENCY PERSIST, ALTERNATE NOSTRILS 06/04/19 24 Active ofloxacin (FLOXIN) 0.3 % otic solution INSTILL 5 DROPS INTO RIGHT EAR TWICE DAILY FOR 7 DAYS 05/31/19 24 Active rosuvastatin (CRESTOR) 20 mg tablet Take 1 tablet (20 mg total) by mouth daily Active testosterone cypionate (DEPO-TESTOTER ONE) 200 mg/mL injection INJECT 0.25 ML (CC) INTRAMUSCULARLY ONCE EVERY 3 WEEKS 03/21/20 23 Active valACYclovir (VALTREX) 500 mg tablet Take by oral route for 7 days. Active naproxen (NAPROSYN) 500 mg tablet Take 1 tablet (500 mg total) by mouth Active metFORMIN XR (GLUCOPHAGE XR) 500 mg 24 hr tablet TAKE 2 TABLETS BY MOUTH ONCE DAILY WITH EVENING MEAL Active ibuprofen (ADVIL,MOTRIN) 800 mg tablet Take 1 tablet (800 mg total) by mouth 3 (three) times a day with meals Active cyanocobalamin (Vitamin B-12) 1,000 mcg/mL injection INJECT 1 ML INTRAMUSCULARLY ONCE A WEEK Active fluticasone propionate (FLONASE) 50 mcg/actuation nasal sprayIndicatio ns:Sensation of fullness in right ear Administer 2 sprays into each nostril daily 1 each 3 07/01/19 24 Active cetirizine (ZyrTEC) 10 mg tabletIndicati ons:Sensation of fullness in right ear Take 1 tablet (10 mg total) by mouth daily 30 tablet 11 07/01/19 24 025 Active Caplyta 21 mg capsule 06/30/19 24 Active Ozempic 0.25 mg or 0.5 mg (2 mg/3 mL) pen injector injection INJECT 0.5MG SUBCUTANEOUSLY ONCE WEEKLY 06/20/19 24 Active benzonatate (TESSALON) 200 mg capsule TAKE 1 CAPSULE BY MOUTH THREE TIMES DAILY NEEDED FOR COUGH Active Active Problems Problem Noted Date Diagnosed Date Sensorineural hearing loss ( SNHL) of right ear with restricted hearing of left ear 07/01/2023 Sound sensitivity in right ear 07/01/2023 Sensation of fullness in right ear 07/01/2023 Sensorineural hearing loss, asymmetrical 024 Plantar fasciitis 06/19/2023 Vertigo 06/19/2023 Vitamin D deficiency 06/19/2023 Polysubstance dependence inc luding opioid type drug, episodic abuse 09/13/2022 Gastroesophageal reflux disease 02/17/2018 Fibromyalgia 01/05/2018 Attention deficit hyperactiv ity disorder, 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 Depressive disorder 01/12/2017 Allergic rhinitis 11/07/2016 Resolved Problems Problem Noted Date Diagnosed Date Resolved Date Low vitamin B12 level 06/26/20232023 Low serum vitamin B12 06/19/20232023 Acute urinary tract infection 06/19/2023 06/19/2023 Anemia 06/19/2023 06/19/2023 Fracture of ankle 06/19/2023 06/19/2023 Herpes simplex 06/19/2023 06/19/2023 Hypothyroidism 06/19/2023 06/19/2023 Low back pain 06/19/2023 06/19/2023 Multiple actinic keratoses 06/19/2023 0 06/19/2023 Upper respiratory infection 06/19/2023 06/19/2023 Prolapsed cervical intervertebral disc 10/08/2021 06/19/2023 Nausea 08/15/2021 06/19/2023 Elevated hemoglobin A1c 08/03/2020 02/0 12/2023 Hyperlipidemia 07/21/2020 06/19/2023 Hyperlipidemia 07/20/2020 06/26/2023 COVID-19 03/11/2020 06/19/2023 Pneumonia due to COVID-19 virus 03/11/2020 06/19/2023 Chronic idiopathic constipation 01/08/2019 06/19/2023 Constipation 01/08/2019 06/19/2023 Urinary incontinence 01/08/2019 024 Insomnia 12/15/2018 06/19/2023 Dysuria 06/03/2018 06/19/2023 Dysuria 06/02/2018 06/26/2023 Obese 01/05/2018 06/19/2023 Pain of left hip joint 10/10/201706/19 Acute bronchitis 07/18/2017 06/19/2023 Acute bronchitis 07/17/2017 06/26/2023 Acute sinusitis 01/22/2017 06/19/2023 Chronic cough 06/26/2023 Immunizations Name Administration Dates Next Due Influenza, Quadrivalent, Split, Intramuscular Influenza, Trivalent, Preservative Free, Intramu scular 01/28/2017,01/23/2016 Surgical History Surgery Date Site/Laterality Comments TONSILLECTOMY 05/12/2009 - 05/11/2010 THYROIDECTOMY 05/12/2010 - 05/11/2011 Medical History Medical History Date Comments Acute urinary tract infection 06/19/2023 Upper respiratory infection 06/19/2023 Acute sinusitis 01/22/2017 Acute bronchitis 07/18/2017 Herpes simplex 06/19/2023 Hypothyroidism 06/19/2023 Insomnia 12/15/2018 Pneumonia due to COVID-19 virus 03/11/2020 Pain of left hip joint 10/10/2017 Multiple actinic keratoses 06/19/2023 Chronic idiopathic constipation 01/08/2019 Prolapsed cervical intervertebral disc 2 Elevated hemoglobin A1c 08/03/2020 Covid-19 03/11/2020 Urinary incontinence 01/08/2019 Fracture of ankle 06/19/2023 Hyperlipidemia 07/21/2020 Obese 01/05/2018 Low back pain 06/19/2023 Dysuria 06/03/2018 Chronic cough Acute bronchitis 07/17/2017 Low vitamin B12 level 06/26/2023 Hyperlipidemia 07/20/2020 Dysuria 06/02/2018 Family History Medical History Relation Name Comments Parkinsonism Father Pulmonary fibrosis Mother Pulmonary fibrosis Sister Relation Name Status Comments Father Mother Sister Social History Tobacco Use Types Packs/Day Years Used Date Smoking Tobacco: Every Day Vaping Smokeless Tobacco: Never Tobacco Cessation:Ready to Q uit: Not Asked; Counseling Given: Not Answered Personal Safety Answer Date Recorded Getting School Help Needed Not on file 05/18 Comments Unknown Sex and Gender Information Value Date Recorded Sex Assigned at Not on file Legal Sex Female 7:02 AM TIMBER DEADENER Gender Identity Not on file Sexual Orientation Not on file Obstetrics History Last Filed Vital Signs Vital Sign Reading Time Taken Comments Blood Pressure 101/61 09/13/2022 12:42 PM CDT Pulse 98 09/13/2022 12:42 PM CDT Temperature 36.5 C (97.7 F) 09/13/2022 12:42 PM CDT Respiratory Rate 18 07/01/2023 9:00 AM TIMBER DEADENER Oxygen Saturation 96% 09/13/2022 12:42 PM CDT room air Inhaled Oxygen Concentration - - Weight 83.5 kg (184 lb) 07/01/2023 9:00 AM TIMBER DEADENER Height 162.6 cm (5' 4 ) 07/01/2023 9:00 AM TIMBER DEADENER Body Mass Index 31.58 07/01/2023 9:00 AM TIMBER DEADENER Plan of Treatment Health Maintenance Due Date Last Done Comments Breast Cancer Screening-Mammogram 1970 Cervical Cancer Screening 1970 Colon Cancer Screening-Colonoscopy 1970 Depression Screening 1970 Hepatitis C Screening 1970 Pneumococcal vaccine <65 (1 of 2 - PCV) 1976 DTaP/Tdap/Td Vaccine (1 - Tdap) 1981 Hepatitis B Screening 1988 Regular Well Visit/Exam 18-64 1988 Zoster Vaccine (1 of 2) 2020 Covid-19 Vaccine (2 - season) 01/11/202407/2020 Influenza Vaccine (#1) 2024 7, 01/23/2016, 02/07/2015 Insurance Member Subscriber Plan / Payer (Ef fective 2022-Present) Name:Hope Barnett Relation to Subscriber:Spouse Name:Enrique Barnett Date of :1965 (Home) Address: [address] [place] [address] Payer ID:[id number] (NAIC) Type:[facility] HMO/PPO Address: [place] [id number] [facility] Member Subscriber Plan / Payer (Ef fective 2022-Present) Name:Hope Barnett Relation to Subscriber:Spouse Name:ENRIQUE BARNETT Date of :1965 (Home) Address: [address] [place] [address] Payer ID:[id number] (NAIC) Type:[facility] HMO/PPO Address: [place] [id number] Care Teams Cat Hooker Relationship Specialty Start Date End Date Ele Green MD PCP - General Emergency Medicine 07/11/22
--- OUTSIDE RECORDS SUMMARY | 2024-06-16 16:31 | XMS_ITS | Referral Summary ---
Author Organization [facility] Address [facility] [place] [address] Care Team Providers Care Superintendent Horticulture Name Role Phone Ele Green MD Primary Care Provider [phone] Allergies Active Allergy Reactions Criticality Noted Date [...] Influenza, Trivalent, Preservative Free, Intramu scular 01/28/2017,01/23/2016 Social History Tobacco Use Types Packs/Day Years Used Date Smoking Tobacco: Every Day Vaping Smokeless Tobacco: Never Tobacco Cessation:Ready to Q uit: Not Asked; Counseling Given: Not Answered Personal Safety Answer Date Recorded Getting School Help Needed Not on file 05/18 Comments Unknown Sex and Gender Information Value Date Recorded Sex Assigned at Not on file Legal Sex Female 7:02 AM FOREST NURSERY SUPERVISOR Gender Identity Not on file Sexual Orientation Not on file Last Filed Vital Signs Vital Sign Reading Time Taken Comments Blood Pressure 101/61 09/13/2022 12:42 PM CDT Pulse 98 09/13/2022 12:42 PM CDT Temperature 36.5 C (97.7 F) 09/13/2022 12:42 PM CDT Respiratory Rate 18 07/01/2023 9:00 AM FOREST NURSERY SUPERVISOR Oxygen Saturation 96% 09/13/2022 12:42 PM CDT room air Inhaled Oxygen Concentration - - Weight 83.5 kg (184 lb) 07/01/2023 9:00 AM FOREST NURSERY SUPERVISOR Height 162.6 cm (5' 4 ) 07/01/2023 9:00 AM FOREST NURSERY SUPERVISOR Body Mass Index 31.58 07/01/2023 9:00 AM FOREST NURSERY SUPERVISOR Plan of Treatment Not on file Insurance [facility] Care Teams Superintendent Horticulture Relationship Specialty Start Date End Date Ele Green MD PCP - General Emergency Medicine 07/11/22
[2024-06-16 16:45] VITALS: BP 113/73; PULSE 108; RESP 16; TEMP 36.8; O2SAT 99
--- NOTE | 2024-06-16 16:45 | ED.FEMALEGU ---
HPI - Female Genitourinary General Chief complaint: Upper Respiratory Infection Stated complaint: uti and sinus infection Time Seen by Provider: 06/16/24 17:01 Source: patient and RN notes reviewed Mode of arrival: ambulatory Limitations: no limitations History of Present Illness HPI Narrative: 54-year-old female presented for complaint of burning with urination and frequency for about 3 weeks. She has been taking azo every day. Denies hematuria, nausea, vomiting, abdominal pain, flank pain, constipation, diarrhea, fevers or chills. Endorses a history of UTIs and interstitial cystitis, has followed with Urology. Patient also reports nasal congestion, sinus pressure and drainage for 2 weeks. Taking DayQuil and NyQuil without significant improvement. Denies cough, shortness of breath, wheezing nausea vomiting, fevers or lethargy. Related Data Home Medications ?Medication ?Instructions ?Recorded ?Confirmed ?Last Taken ?Type semaglutide 1 mg/dose (4 mg/3 mL) 1 mg subcut WEEKLY 07/01/22 01/29/24 01/25/24 History subcutaneous pen injector (Ozempic) syringe with needle 3 mL 18 x 1 04/01/23 01/29/24 Unknown History 1/2 (BD Luer-Mulu Syringe) testosterone cypionate 200 mg/mL 50 mg IM [id number] 04/01/23 01/29/24 Unknown History intramuscular oil trazodone 50 mg tablet 100 mg PO HS Insomnia 04/01/23 01/29/24 01/28/24 History estradiol cypionate 5 mg/mL 0.5 mg IM [id number] 05/31/23 01/29/24 Unknown History intramuscular oil (Depo-Estradiol) lumateperone 10.5 mg capsule 21 mg PO HS 05/31/23 01/29/24 01/28/24 History (Caplyta) omeprazole 20 mg capsule,delayed 40 mg PO HS 05/31/23 01/29/24 01/28/24 History release progesterone micronized 100 mg 100 mg PO HS 11/12/23 01/29/24 01/28/24 History capsule cyanocobalamin (vitamin B-12) 1,000 mcg IM WEEKLY 01/29/24 01/29/24 01/26/24 History 1,000 mcg/mL injection solution dextroamphetamine-amphetamine ER PO 06/16/24 Unknown History 15 mg 24hr capsule,extend release Allergies Allergy/AdvReac Type Severity Reaction Status Date / Time Sulfa (Sulfonamide AdvReac Mild Itching Verified 06/16/24 16:52 Antibiotics) Review of Systems Review of Systems: Per HPI [facility] Past Medical History Medical History Venous anomaly Constipation Vomiting Abnormal CT of the abdomen Diabetes states is prediabetic Pneumonia due to COVID-19 virus COVID-28 February 2020 Bronchitis Bipolar 1 disorder Surgical History Surgical History H/O tubal ligation H/O partial thyroidectomy Hx of tonsillectomy Family History Family History Father Family history of Parkinson's disease Social History Social History Years smoked: 3 Smoking status: Current every day smoker Tobacco type: e-cigarettes/vaping Smoking end date: 05/12/01 Additional smoking assessment comments: VAPING FOR 8 YEARS Alcohol intake: current Drinks per week: 1 Substance use: former Substance use type: crack/cocaine Other substance usage details: Daily Last use: takes hydrocodone for chronic back pain Do You Feel Safe in your Home?: Yes Lack of Transportation: No Lack of Food: Never True Current Housing: I Have Housing Concerned About Future Housing: No Difficulty Paying Gas/Electric Bills: No Difficulty Paying for Meds: No Currently Unemployed: No Education: High School Diploma/GED Difficulty w/ Childcare or Family Care: No Living arrangements: with family Gender identity (if verbalized by the patient): Female Spiritual care concerns: No Exam Narrative: GENERAL: well-appearing, nontoxic EYES: PERRLA, conjunctivae clear ENT: Mucous membranes moist. Nasal congestion noted. TM pearly escamilla with dull light reflex bilaterally; no tragal tenderness. no drooling, no hoarseness, no trismus, uvula midline. No tripod positioning, muffled voice, soft palate or pharyngeal wall bulging NECK: Supple. No lymphadenopathy CHEST: Clear to auscultation, breath sounds equal. HEART: Regular rate and rhythm. ABD: soft, nontender, no CVA tenderness SKIN: Warm, dry, no rash. NEURO: Alert and oriented x3. PSYCH: anxious Course Course Emergency Course: Patient is aware of diagnosis, understands and agrees to treatment plan. Anticipatory guidance given. Patient agrees to follow-up as directed and is aware of reasons to seek care at the emergency department. Portions of this record may have been created with voice recognition software Level of Care: Express Care Visit Vital Signs Vital signs: Vital Signs Temperature 98.2 F 06/16/24 16:45 Pulse Rate 108 H 06/16/24 16:45 Respiratory Rate 16 06/16/24 16:45 Blood Pressure 113/73 06/16/24 16:45 Pulse Oximetry 99 06/16/24 16:45 Oxygen Delivery Room Air 06/16/24 16:45 Temperature 98.2 F 06/16/24 16:45 Pulse Rate 108 H 06/16/24 16:45 Respiratory Rate 16 06/16/24 16:45 Blood Pressure 113/73 06/16/24 16:45 Pulse Oximetry 99 06/16/24 16:45 Oxygen Delivery Room Air 06/16/24 16:45 reviewed MDM - Female Genitourinary MDM Narrative Medical decision making narrative: Discussed physical exam findings. Will treat with Augmentin for URI, will culture urine. Advised supportive measures and signs/symptoms to go to the ER. Pt is appropriate for outpt treatment and f/u. Differential Diagnosis Differential diagnosis: Likely urinary tract infection, cystitis and other (Influenza, covid, sinusitis, OM, strep pharyngitis, URI) Lab Data Labs: Lab Results 06/16/24 Range/Units 16:51 POC Urine Color Red POC Urine Clarity Cloudy POC Urine pH 5.0 POC Ur Specif Mcclave 1.010 POC Urine Protein 2+ (Negative) POC Ur Glucose (UA) 1+ (Negative) POC Urine Ketones 1+ (Negative) POC Urine Blood Negative (Negative) POC Urine Nitrite Positive (Negative) POC Urine Bilirubin 2+ (Negative) POC Urine Urobilinogen 8.0 POC U Leukocyte Esteras 3+ (Negative) Discharge Plan Discharge Clinical Impression: Sinusitis, Dysuria Patient Disposition: Home, Self-Care Condition: Stable Instructions: Antibiotic Form, Urinary Tract Infection in Women (ED), Rhinosinusitis (ED) Additional Instructions: Sinusitis: Flonase spray and Zyrtec (or Claritin/Adamaris) over the counter Cough syrup may cause drowsiness; avoid driving or take it at night time. Tylenol 1000mg every 8 hours as needed for pain rest, fluids, and increase humidity of the air at home. Urine: Take the antibiotic as prescribed The urine will be sent of for a culture to identify what type of bacteria is causing your infection. If the culture shows that the antibiotic will not get rid of your infection, you will be notified and a new antibiotic will be called in for you. Increase water intake you will need to follow up with your PCP, call to schedule an appointment. Go to the ER for any worsening symptoms or concerns Patient Language: Tamazight Prescriptions: New amoxicillin-pot clavulanate 875-125 mg tablet 1 tablet PO Q12H 7 Days Qty: 14 0RF No Action Caplyta 10.5 mg capsule 21 mg PO HS omeprazole 20 mg capsule,delayed release(DR/EC) 40 mg PO HS Depo-Estradiol 5 mg/mL oil 0.5 mg IM [id number] dextroamphetamine-amphetamine 15 mg capsule,extended release 24hr PO Ozempic 1 mg/dose (4 mg/3 mL) pen injector 1 mg SUBCUT WEEKLY trazodone 50 mg tablet 100 mg PO HS (DME) BD Luer-Mulu Syringe 3 mL 18 x 1 1/2 syringe MISCELLANEOUS testosterone cypionate 200 mg/mL oil 50 mg IM [id number] cyanocobalamin (vitamin B-12) 1,000 mcg/mL solution 1,000 mcg IM WEEKLY progesterone micronized 100 mg capsule 100 mg PO HS Follow-up/Referrals: Norma,Ele Pickard MD [Primary Care Provider] - Time of Disposition: 17:09
[2024-06-16 16:55] LABS: EDUAAPPEAR Cloudy; EDUABILI 2+ (Negative); EDUABLOOD Negative (Negative); EDUACOLOR1 Red; EDUAGLUCOSE 1+ (Negative); EDUAKETONE 1+ (Negative); EDUALEUKO 3+ (Negative); EDUANITRATE Positive (Negative); EDUAPROTEIN 2+ (Negative)
== END 2024-06-16 17:16 | disposition home or self-care (01) ==
PROVIDERS: Emergency Provider Nurse Practitioner Family; PCP Emergency Medicine
DX: J32.9 Chronic sinusitis, unspecified (principal); R30.0 Dysuria; E11.9 Type 2 diabetes mellitus without complications; F17.290 Nicotine dependence, other tobacco product, uncomplicated
CPT/HCPCS: 81003; 87086; 99213; G0463

== ENCOUNTER 2024-11-09 16:18 | Emergency (ER) | payer OTHER, SELFPAY ==
--- OUTSIDE RECORDS SUMMARY | 2024-11-09 16:21 | XMS_ITS | Clinical Summary ---
Author Organization [facility] Address [address] [place] [id number] Care Team Providers Care Health Information Clerk Name Role Phone Ele Green MD Primary Care Provider [phone] Social History Tobacco Use Types Packs/Day Years [...] Every 5 Years 2000 Cervical Cancer Screening with HPV 2000 Mammogram Screening 2010 Pneumococcal Vaccine: 50+ Ye ars (1 of 1 - PCV) 2020 Zoster Vaccines (1 of 2) 2020 COVID-19 Vaccine (2 - 2023-2 5 season) 2024 12/12/2020 Meningococcal B Vaccine Aged Out No l onger eligible based on patient's age to complete this topic Meningococcal Vaccine Aged Out No beatriz colby eligible based on patient's age to complete this topic RSV Immunizations Under 20 Months Aged Out No longer eligible based on patient's age to complete this topic Insurance [facility] Care Teams Health Information Clerk Relationship Specialty [place] [address] [place] [id number] PCP - General EMERGENCY MEDICINE 03/10/23
--- OUTSIDE RECORDS SUMMARY | 2024-11-09 16:21 | XMS_ITS | Patient Health Record ---
Author Organization [facility] Ring[employer] Address [address] [facility] [address] [place] [address] Care Team Providers [employer] Name Role Phone Ele Green MD Primary Care Provider Loi Crisostomo Unavailable [phone] Arjun Ray Unavailable [phone] Allergies Allergen (clinical drug ingredient) Drug/Non Drug Allergy documented on EMR Reaction Allergy Type Onset Date Status Substance with sulfonamide structure and antibacterial mechanism of action (substance) SULFA (SULFONAMIDE ANTIBIOTICS) (uncoded) Unknown Allergy 05/30/2023 Active Results Component Value Reference Range Notes UDT Reviewed date:01/23/2024 03:23:19 PM Interpretation: Performing Lab: Notes/Report: THC neg 0 - 50 ng/ml Cocaine neg 0 - 300 ng/ml Amphetamine pos 0 - 1000 ng/ml Buprenorphine (BUP) neg 0 - 10 ng/ml Secobarbital (Bar) neg 0 - 300 ng/ml Oxazepam (BZO) neg 0 - 300 ng/ml 6-jrycrnodpc-9,1-ufqtfelc-9,3-diphenylpyrrolidine (NOAH P) neg 0 - 300 ng/ml Methamphetamine (MET) neg 0 - 1000 ng/ml Methylenedioxymethamphetamine (MDMA) neg 0 - 500 ng/ml Morphine (MOP 300/[id number]) neg 0 - 300 ng/ml Methadone (MTD) neg 0 - 300 ng/ml Phencyclidine (PCP) neg 0 - 25 ng/ml Nortriptyline (TCA) neg 0 - 1000 ng/ml Oxycodone neg 0 - 300 ng/ml x neg 0 - 300 ng/ml UDT Reviewed date:12/12/2023 04:52:37 PM Interpretation: Performing Lab: Notes/Report: THC neg 0 - 50 ng/ml Cocaine net 0 - 300 ng/ml Amphetamine pow 0 - 1000 ng/ml Buprenorphine (BUP) neg 0 - 10 ng/ml Secobarbital (Bar) neg 0 - 300 ng/ml Oxazepam (BZO) neg 0 - 300 ng/ml 7-dnvnrarfxe-6,4-syxbtzaz-4,3-diphenylpyrrolidine (NOAH P) neg 0 - 300 ng/ml Methamphetamine (MET) neg 0 - 1000 ng/ml Methylenedioxymethamphetamine (MDMA) neg 0 - 500 ng/ml Morphine (MOP 300/[id number]) neg 0 - 300 ng/ml Methadone (MTD) neg 0 - 300 ng/ml Phencyclidine (PCP) neg 0 - 25 ng/ml Nortriptyline (TCA) neg 0 - 1000 ng/ml Oxycodone neg 0 - 300 ng/ml x neg 0 - 300 ng/ml UDT Reviewed date:12/05/2023 01:03:13 PM Interpretation: Performing Lab: Notes/Report: THC N 0 - 50 ng/ml Cocaine N 0 - 300 ng/ml Amphetamine N 0 - 1000 ng/ml Buprenorphine (BUP) N 0 - 10 ng/ml Secobarbital (Bar) N 0 - 300 ng/ml Oxazepam (BZO) N 0 - 300 ng/ml 1-rmyqfeuzdm-1,1-vikjtkdl-8,3-diphenylpyrrolidine (NOAH P) N 0 - 300 ng/ml Methamphetamine (MET) N 0 - 1000 ng/ml Methylenedioxymethamphetamine (MDMA) N 0 - 500 ng/ml Morphine (MOP 300/[id number]) N 0 - 300 ng/ml Methadone (MTD) N 0 - 300 ng/ml Phencyclidine (PCP) N 0 - 25 ng/ml Nortriptyline (TCA) N 0 - 1000 ng/ml Oxycodone N 0 - 300 ng/ml x N 0 - 300 ng/ml Reason For Referral No Information Medications Medication SIG (Take, Route, Frequency, Duration) Notes Start Date End Date Status Testosterone Cypionate 200 MG/ML Intramuscular 06/30/2023 Active LUER-ASHLEY SYRINGE-NEEDLE 3 mL 18 x 1 1/2 MISCELLANEOUS *Reorder from [facility] for eRx and Interaction Alerts* 06/30/2023 Active Depo-Estradiol 5 mg/mL Intramuscular 06/30/2023 Active LUER-ASHLEY SYRINGE-NEEDLE 3 mL 25 gauge x 1 MISCELLANEOUS *Reorder from [facility] for eRx and Interaction Alerts* 06/30/2023 Active Ozempic (1 MG/DOSE) 4 MG/3ML Subcutaneous *Pick strength-form from [employer] for eRX* 06/30/2023 Active traZODone HCl 100 MG 1 tablet Orally Once a day; Duration: 90 days As needed Active Caplyta 21 MG 1 capsule Oral Once a day; Duration: 30 days Active Amphetamine-Dextroam phet ER 30 MG 1 capsule every morning Orally Once a day; Duration: 30 days Active Amphetamine-Dextroam phet ER 30 MG 1 capsule in the morning Orally Once a day; Duration: 30 days 10/12/2024 Active Immunizations Vaccine Route Administration Date Status Comme nts Carlos Covid-19 Vaccine Unknown 12/12/2020 Administere d Influenza virus vaccine, quadrivalent (IIV4), split virus, 0.25 mL dosage Unknown 01/23/2016 Administered Influenza virus vaccine, quadrivalent (IIV4), split virus, 0.25 mL dosage Unknown 01/28/2017 Administered Social History Tobacco Use: Social History Observation Description Date Details (start date - stop date) Former Smoker NA - NA Sex Assigned At : Social History Observation Description Sex Assigned At Female Tobacco Control (Standard) Question Answer Notes Tobacco use: Former smoker How long has it been since you last smoked? Grea ter than 10 years Problems Problem Type SNOMED Code ICD Code Onset Dates Problem Status W/U Status Risk Notes Problem Mixed bipolar affective disorder, moderate (173207547) Bipolar disorder, current episode mixed, moderate (F31.62) Active confirmed Problem Generalized anxiety disorder (58899244) Generalized anxiety disorder (F41.1) Active confirmed Problem Primary insomnia (3684884) Primary insomnia (F51.01) Active confirmed Problem Attention deficit hyperactivity disorder (725544100) Attention-deficit hyperactivity disorder, unspecified type (F90.9) Active confirmed Vital Signs Heart Rate 92 /min 01/23/2024 Height-cm 170.18 cm 08/23/2024 Blood pressure diastolic 82 mm Hg 01/23/2024 Weight-kg 78.93 kg 01/23/2024 Height 67.00 in 08/23/2024 Blood pressure systolic 113 mm Hg 01/23/2024 Weight 174 lbs 01/23/2024 BMI 27.25 kg/m2 01/23/2024 Procedures Procedure Date Ordered Date Performed Result Body Sit e ADHD Testing 12/03/2023 N/A Encounters Encounter Location Date Provider Diagnosis [facility] [address] [place] [address] 12/03/2023 Loi Carvajal Generalized anxiety disorder F41.1 ; Bipolar disorder, current episode mixed, moderate F31.62 ; Primary insomnia F51.01 and Attention-deficit hyperactivity disorder, unspecified type F90.9 [facility] [address] [place] [address] 12/12/2023 Arjun Ray ADHD (attention defi cit hyperactivity disorder) F90.9 [facility] [address] [place] [address] 12/23/2023 Loi Carvajal Generalized anxiety disorder F41.1 ; Bipolar disorder, current episode mixed, moderate F31.62 ; Primary insomnia F51.01 and Attention-deficit hyperactivity disorder, unspecified type F90.9 [facility] [employer] [address] [place] [address] 01/23/2024 Loi Carvajal Generalized anxiety disorder F41.1 ; Bipolar disorder, current episode mixed, moderate F31.62 ; Primary insomnia F51.01 and Attention-deficit hyperactivity disorder, unspecified type F90.9 [facility] [address] [place] [address] 03/26/2024 Loi Carvajal Generalized anxiety disorder F41.1 ; Bipolar disorder, current episode mixed, moderate F31.62 ; Primary insomnia F51.01 and Attention-deficit hyperactivity disorder, unspecified type F90.9 [facility] [employer] [facility] [address] [place] [address] 08/23/2024 Loi Carvajal Generalized anxiety disorder F41.1 ; Bipolar disorder, current episode mixed, moderate F31.62 ; Primary insomnia F51.01 and Attention-deficit hyperactivity disorder, unspecified type F90.9 [facility] [employer] [facility] [address] [place] [address] 11/11/2023 Loi Carvajal [facility] [address] [place] [address] 01/27/2024 Loi Carvajal Attention-deficit hyperactivity disorder, unspecified type F90.9 and Bipolar disorder, current episode mixed, moderate F31.62 [facility] [address] [place] [address] 03/05/2024 Loi Carvajal Attention-deficit hyperactivity disorder, unspecified type F90.9 [facility] [address] [place] [address] 03/29/2024 Loi Carvajal Attention-deficit hyperactivity disorder, unspecified type F90.9 [facility] [address] [place] [address] 05/03/2024 Loi Carvajal Attention-deficit hyperactivity disorder, unspecified type F90.9 [facility] [address] [facility] [address] [place] [address] 06/11/2024 Loi Carvajal Attention-deficit hyperactivity disorder, unspecified type F90.9 [place] [id number] [place] [address] 07/22/2024 Loi Carvajal Attention-deficit hyperactivity disorder, unspecified type F90.9 [place] [id number] [facility] [address] [place] [address] 08/18/2024 Loi Carvajal Attention-deficit hyperactivity disorder, unspecified type F90.9 [facility] [address] [place] [address] 10/12/2024 Loi Carvajal Attention-deficit hyperactivity disorder, unspecified type F90.9 Assessments Encounter Date Diagnosis (ICD Code) Assessment Notes Treatment Notes Treatment Clinical Notes Section Notes 05/03/2024 Attention-defici t hyperactivity disorder, unspecified type (ICD-10 - F90.9) 06/11/2024 Attention-defici t hyperactivity disorder, unspecified type (ICD-10 - F90.9) 07/22/2024 Attention-defici t hyperactivity disorder, unspecified type (ICD-10 - F90.9) 08/18/2024 Attention-defici t hyperactivity disorder, unspecified type (ICD-10 - F90.9) 01/27/2024 Attention-defici t hyperactivity disorder, unspecified type (ICD-10 - F90.9) 03/05/2024 Attention-defici t hyperactivity disorder, unspecified type (ICD-10 - F90.9) 03/26/2024 Generalized anxiety disorder (ICD-10 - F41.1) stable 1. Mental health and substance use - Patient reports a history of drug use as a coping mechanism for depression and relationship issues. She is currently in a better mental state and has no desire to use drugs. She recently discarded drug paraphernalia and is distancing herself from negative influences. Plan: - Encourage patient to continue focusing on self-care and maintaining a healthy lifestyle - Recommend individual therapy or support groups for additional emotional support and coping strategies - Monitor patient's mental health and substance use during follow-up appointments 2. Relationship issues and stress - Patient recently ended a toxic relationship and is experiencing some emotional ups and downs. She is focusing on self-care and making better decisions for her well-being. Plan: - Encourage patient to continue prioritizing self-care and personal growth - Suggest seeking therapy or counseling to help process emotions and develop healthy coping strategies 3. Medication refill - Patient requests a three-month refill of her current medications. Plan: - Refill medications as requested for a three-month supply - Schedule a follow-up appointment in three months to assess patient's progress and medication needs 12/12/2023 ADHD (attention deficit hyperactivity disorder) (ICD-10 - F90.9) 12/23/2023 Generalized anxiety disorder (ICD-10 - F41.1) 1. Bipolar Disorder - Increase Caplyta to 42 mg daily for better symptom control. - Continue monitoring mood and symptoms. 2. Post-Traumatic Stress Disorder (PTSD) - Encourage the patient to seek counseling for unresolved issues and forgiveness. - Monitor nightmares and anxiety levels. 3. Attention Deficit Hyperactivity Disorder (ADHD) - Perform ADHD testing within the next month. - Urine drug screen today to confirm substance-free status. - Prescribe Adderall XR 15 mg daily to help with focus and memory. - Instruct the patient not to take Adderall on the day of ADHD testing. 4. Substance Use Disorder (in remission) - Encourage the patient to maintain sobriety. - Monitor for any signs of relapse. 5. Anxiety and Hyper-vigilance - Address anxiety and hyper-vigilance through counseling and medication management. - Monitor the patient's stress levels and coping mechanisms. Follow-up: - Schedule a follow-up appointment in one month to evaluate the effectiveness of the medication adjustments and discuss the results of the ADHD testing.. 1. Bipolar Disorder - Increase Caplyta to 42 mg daily for better symptom control. - Continue monitoring mood and symptoms. 2. Post-Traumatic Stress Disorder (PTSD) - Encourage the patient to seek counseling for unresolved issues and forgiveness. - Monitor nightmares and anxiety levels. 3. Attention Deficit Hyperactivity Disorder (ADHD) - Perform ADHD testing within the next month. - Urine drug screen today to confirm substance-free status. - Prescribe Adderall XR 15 mg daily to help with focus and memory. - Instruct the patient not to take Adderall on the day of ADHD testing. 4. Substance Use Disorder (in remission) - Encourage the patient to maintain sobriety. - Monitor for any signs of relapse. 5. Anxiety and Hyper-vigilance - Address anxiety and hyper-vigilance through counseling and medication management. - Monitor the patient's stress levels and coping mechanisms. Follow-up: - Schedule a follow-up appointment in one month to evaluate the effectiveness of the medication adjustments and discuss the results of the ADHD testing. 1. Bipolar Disorder: - The patient reported feeling like a zombie, nauseous, and dizzy on the increased dose of Caplyta (42 mg). The patient has not taken it for three days and feels a different kind of dizzy when stopping the medication. - Plan: Decrease Caplyta to 21 mg daily. Monitor for side effects and mood stability. Encourage the patient to continue taking the medication consistently. 2. ADHD: - The patient reported taking Adderall most days, two a day, but then ran out early and took one. The patient prefers two a day and feels more focused and less overwhelmed with the medication. - Plan: Increase Adderall XR to 30 mg every morning. Monitor for side effects and effectiveness in managing ADHD symptoms. 3. Insomnia: - No new complaints or concerns regarding insomnia. - Plan: Continue trazodone 50 mg as needed for sleep. Monitor for effectiveness and side effects. 4. Substance Use Disorder (in remission): - The patient reported feeling much better since stopping substance use and is focused on maintaining sobriety. The patient is aware of the need to distance themselves from friends who are still using substances. - Plan: Encourage the patient to continue prioritizing sobriety and making positive life choices. Recommend seeking counseling for additional support. Follow-up: Schedule a follow-up appointment in one month to monitor medication adjustments, mood stability, and overall progress. 01/23/2024 Generalized anxiety disorder (ICD-10 - F41.1) stable 1. Attention Deficit Hyperactivity Disorder (ADHD) - The patient reports improvement in focus and work performance with the current Adderall XR 30 mg regimen. She requests a refill. Plan: - Continue Adderall XR 30 mg daily - Refill prescription - Monitor for side effects and effectiveness at follow-up visits 2. Insomnia - The patient reports that Trazodone 50 mg is not sufficient for maintaining sleep and has been taking 100 mg instead. Plan: - Increase Trazodone to 100 mg at bedtime for sleep - Educate the patient on sleep hygiene practices - Reassess sleep quality at follow-up visits 3. Depression and Anxiety - The patient is currently on Venlafaxine 21 mg and reports feeling much better and having a stable mood. Plan: - Continue Venlafaxine 21 mg daily - Monitor for side effects and effectiveness at follow-up visits - Encourage the patient to seek counseling for additional support 4. Marital and Interpersonal Issues - The patient reports ongoing marital difficulties and conflicts with neighbors, which are causing significant distress. Plan: - Encourage the patient to seek individual and/or couples counseling to address marital and interpersonal issues - Provide support and guidance during follow-up visits - Monitor the patient's mental health and well-being in relation to these issues 5. Anger Management - The patient acknowledges having a bad temper and difficulty controlling her anger in certain situations. Plan: - Recommend the patient to seek counseling or attend anger management classes to develop healthy coping strategies - Encourage the patient to practice self-awareness and self-regulation techniques - Monitor progress and discuss anger management strategies during follow-up visits Follow-up: - Schedule a follow-up visit in 4 weeks to monitor medication effectiveness, side effects, and progress in addressing marital and interpersonal issues. 08/23/2024 Generalized anxiety disorder (ICD-10 - F41.1) stable 03/29/2024 Attention-defici t hyperactivity disorder, unspecified type (ICD-10 - F90.9) 10/12/2024 Attention-defici t hyperactivity disorder, unspecified type (ICD-10 - F90.9) 12/03/2023 Bipolar disorder, current episode mixed, moderate (ICD-10 - F31.62) 1. Bipolar Disorder - Increase Caplyta to 42 mg daily for better symptom control. - Continue monitoring mood and symptoms. 2. Post-Traumatic Stress Disorder (PTSD) - Encourage the patient to seek counseling for unresolved issues and forgiveness. - Monitor nightmares and anxiety levels. 3. Attention Deficit Hyperactivity Disorder (ADHD) - Perform ADHD testing within the next month. - Urine drug screen today to confirm substance-free status. - Prescribe Adderall XR 15 mg daily to help with focus and memory. - Instruct the patient not to take Adderall on the day of ADHD testing. 4. Substance Use Disorder (in remission) - Encourage the patient to maintain sobriety. - Monitor for any signs of relapse. 5. Anxiety and Hyper-vigilance - Address anxiety and hyper-vigilance through counseling and medication management. - Monitor the patient's stress levels and coping mechanisms. Follow-up: - Schedule a follow-up appointment in one month to evaluate the effectiveness of the medication adjustments and discuss the results of the ADHD testing. 12/03/2023 Generalized anxiety disorder (ICD-10 - F41.1) 1. Bipolar Disorder - Increase Caplyta to 42 mg daily for better symptom control. - Continue monitoring mood and symptoms. 2. Post-Traumatic Stress Disorder (PTSD) - Encourage the patient to seek counseling for unresolved issues and forgiveness. - Monitor nightmares and anxiety levels. 3. Attention Deficit Hyperactivity Disorder (ADHD) - Perform ADHD testing within the next month. - Urine drug screen today to confirm substance-free status. - Prescribe Adderall XR 15 mg daily to help with focus and memory. - Instruct the patient not to take Adderall on the day of ADHD testing. 4. Substance Use Disorder (in remission) - Encourage the patient to maintain sobriety. - Monitor for any signs of relapse. 5. Anxiety and Hyper-vigilance - Address anxiety and hyper-vigilance through counseling and medication management. - Monitor the patient's stress levels and coping mechanisms. Follow-up: - Schedule a follow-up appointment in one month to evaluate the effectiveness of the medication adjustments and discuss the results of the ADHD testing. 12/03/2023 Primary insomnia (ICD-10 - F51.01) 1. Bipolar Disorder - Increase Caplyta to 42 mg daily for better symptom control. - Continue monitoring mood and symptoms. 2. Post-Traumatic Stress Disorder (PTSD) - Encourage the patient to seek counseling for unresolved issues and forgiveness. - Monitor nightmares and anxiety levels. 3. Attention Deficit Hyperactivity Disorder (ADHD) - Perform ADHD testing within the next month. - Urine drug screen today to confirm substance-free status. - Prescribe Adderall XR 15 mg daily to help with focus and memory. - Instruct the patient not to take Adderall on the day of ADHD testing. 4. Substance Use Disorder (in remission) - Encourage the patient to maintain sobriety. - Monitor for any signs of relapse. 5. Anxiety and Hyper-vigilance - Address anxiety and hyper-vigilance through counseling and medication management. - Monitor the patient's stress levels and coping mechanisms. Follow-up: - Schedule a follow-up appointment in one month to evaluate the effectiveness of the medication adjustments and discuss the results of the ADHD testing. 01/23/2024 Bipolar disorder, current episode mixed, moderate (ICD-10 - F31.62) 1. Attention Deficit Hyperactivity Disorder (ADHD) - The patient reports improvement in focus and work performance with the current Adderall XR 30 mg regimen. She requests a refill. Plan: - Continue Adderall XR 30 mg daily - Refill prescription - Monitor for side effects and effectiveness at follow-up visits 2. Insomnia - The patient reports that Trazodone 50 mg is not sufficient for maintaining sleep and has been taking 100 mg instead. Plan: - Increase Trazodone to 100 mg at bedtime for sleep - Educate the patient on sleep hygiene practices - Reassess sleep quality at follow-up visits 3. Depression and Anxiety - The patient is currently on Venlafaxine 21 mg and reports feeling much better and having a stable mood. Plan: - Continue Venlafaxine 21 mg daily - Monitor for side effects and effectiveness at follow-up visits - Encourage the patient to seek counseling for additional support 4. Marital and Interpersonal Issues - The patient reports ongoing marital difficulties and conflicts with neighbors, which are causing significant distress. Plan: - Encourage the patient to seek individual and/or couples counseling to address marital and interpersonal issues - Provide support and guidance during follow-up visits - Monitor the patient's mental health and well-being in relation to these issues 5. Anger Management - The patient acknowledges having a bad temper and difficulty controlling her anger in certain situations. Plan: - Recommend the patient to seek counseling or attend anger management classes to develop healthy coping strategies - Encourage the patient to practice self-awareness and self-regulation techniques - Monitor progress and discuss anger management strategies during follow-up visits Follow-up: - Schedule a follow-up visit in 4 weeks to monitor medication effectiveness, side effects, and progress in addressing marital and interpersonal issues. 01/27/2024 Bipolar disorder, current episode mixed, moderate (ICD-10 - F31.62) 12/23/2023 Bipolar disorder, current episode mixed, moderate (ICD-10 - F31.62) 1. Bipolar Disorder - Increase Caplyta to 42 mg daily for better symptom control. - Continue monitoring mood and symptoms. 2. Post-Traumatic Stress Disorder (PTSD) - Encourage the patient to seek counseling for unresolved issues and forgiveness. - Monitor nightmares and anxiety levels. 3. Attention Deficit Hyperactivity Disorder (ADHD) - Perform ADHD testing within the next month. - Urine drug screen today to confirm substance-free status. - Prescribe Adderall XR 15 mg daily to help with focus and memory. - Instruct the patient not to take Adderall on the day of ADHD testing. 4. Substance Use Disorder (in remission) - Encourage the patient to maintain sobriety. - Monitor for any signs of relapse. 5. Anxiety and Hyper-vigilance - Address anxiety and hyper-vigilance through counseling and medication management. - Monitor the patient's stress levels and coping mechanisms. Follow-up: - Schedule a follow-up appointment in one month to evaluate the effectiveness of the medication adjustments and discuss the results of the ADHD testing.. 1. Bipolar Disorder - Increase Caplyta to 42 mg daily for better symptom control. - Continue monitoring mood and symptoms. 2. Post-Traumatic Stress Disorder (PTSD) - Encourage the patient to seek counseling for unresolved issues and forgiveness. - Monitor nightmares and anxiety levels. 3. Attention Deficit Hyperactivity Disorder (ADHD) - Perform ADHD testing within the next month. - Urine drug screen today to confirm substance-free status. - Prescribe Adderall XR 15 mg daily to help with focus and memory. - Instruct the patient not to take Adderall on the day of ADHD testing. 4. Substance Use Disorder (in remission) - Encourage the patient to maintain sobriety. - Monitor for any signs of relapse. 5. Anxiety and Hyper-vigilance - Address anxiety and hyper-vigilance through counseling and medication management. - Monitor the patient's stress levels and coping mechanisms. Follow-up: - Schedule a follow-up appointment in one month to evaluate the effectiveness of the medication adjustments and discuss the results of the ADHD testing. 1. Bipolar Disorder: - The patient reported feeling like a zombie, nauseous, and dizzy on the increased dose of Caplyta (42 mg). The patient has not taken it for three days and feels a different kind of dizzy when stopping the medication. - Plan: Decrease Caplyta to 21 mg daily. Monitor for side effects and mood stability. Encourage the patient to continue taking the medication consistently. 2. ADHD: - The patient reported taking Adderall most days, two a day, but then ran out early and took one. The patient prefers two a day and feels more focused and less overwhelmed with the medication. - Plan: Increase Adderall XR to 30 mg every morning. Monitor for side effects and effectiveness in managing ADHD symptoms. 3. Insomnia: - No new complaints or concerns regarding insomnia. - Plan: Continue trazodone 50 mg as needed for sleep. Monitor for effectiveness and side effects. 4. Substance Use Disorder (in remission): - The patient reported feeling much better since stopping substance use and is focused on maintaining sobriety. The patient is aware of the need to distance themselves from friends who are still using substances. - Plan: Encourage the patient to continue prioritizing sobriety and making positive life choices. Recommend seeking counseling for additional support. Follow-up: Schedule a follow-up appointment in one month to monitor medication adjustments, mood stability, and overall progress. 03/26/2024 Bipolar disorder, current episode mixed, moderate (ICD-10 - F31.62) 1. Mental health and substance use - Patient reports a history of drug use as a coping mechanism for depression and relationship issues. She is currently in a better mental state and has no desire to use drugs. She recently discarded drug paraphernalia and is distancing herself from negative influences. Plan: - Encourage patient to continue focusing on self-care and maintaining a healthy lifestyle - Recommend individual therapy or support groups for additional emotional support and coping strategies - Monitor patient's mental health and substance use during follow-up appointments 2. Relationship issues and stress - Patient recently ended a toxic relationship and is experiencing some emotional ups and downs. She is focusing on self-care and making better decisions for her well-being. Plan: - Encourage patient to continue prioritizing self-care and personal growth - Suggest seeking therapy or counseling to help process emotions and develop healthy coping strategies 3. Medication refill - Patient requests a three-month refill of her current medications. Plan: - Refill medications as requested for a three-month supply - Schedule a follow-up appointment in three months to assess patient's progress and medication needs 08/23/2024 Bipolar disorder, current episode mixed, moderate (ICD-10 - F31.62) 03/26/2024 Primary insomnia (ICD-10 - F51.01) trazodone 100mg hs prn 1. Mental health and substance use - Patient reports a history of drug use as a coping mechanism for depression and relationship issues. She is currently in a better mental state and has no desire to use drugs. She recently discarded drug paraphernalia and is distancing herself from negative influences. Plan: - Encourage patient to continue focusing on self-care and maintaining a healthy lifestyle - Recommend individual therapy or support groups for additional emotional support and coping strategies - Monitor patient's mental health and substance use during follow-up appointments 2. Relationship issues and stress - Patient recently ended a toxic relationship and is experiencing some emotional ups and downs. She is focusing on self-care and making better decisions for her well-being. Plan: - Encourage patient to continue prioritizing self-care and personal growth - Suggest seeking therapy or counseling to help process emotions and develop healthy coping strategies 3. Medication refill - Patient requests a three-month refill of her current medications. Plan: - Refill medications as requested for a three-month supply - Schedule a follow-up appointment in three months to assess patient's progress and medication needs 12/23/2023 Primary insomnia (ICD-10 - F51.01) 1. Bipolar Disorder - Increase Caplyta to 42 mg daily for better symptom control. - Continue monitoring mood and symptoms. 2. Post-Traumatic Stress Disorder (PTSD) - Encourage the patient to seek counseling for unresolved issues and forgiveness. - Monitor nightmares and anxiety levels. 3. Attention Deficit Hyperactivity Disorder (ADHD) - Perform ADHD testing within the next month. - Urine drug screen today to confirm substance-free status. - Prescribe Adderall XR 15 mg daily to help with focus and memory. - Instruct the patient not to take Adderall on the day of ADHD testing. 4. Substance Use Disorder (in remission) - Encourage the patient to maintain sobriety. - Monitor for any signs of relapse. 5. Anxiety and Hyper-vigilance - Address anxiety and hyper-vigilance through counseling and medication management. - Monitor the patient's stress levels and coping mechanisms. Follow-up: - Schedule a follow-up appointment in one month to evaluate the effectiveness of the medication adjustments and discuss the results of the ADHD testing.. 1. Bipolar Disorder - Increase Caplyta to 42 mg daily for better symptom control. - Continue monitoring mood and symptoms. 2. Post-Traumatic Stress Disorder (PTSD) - Encourage the patient to seek counseling for unresolved issues and forgiveness. - Monitor nightmares and anxiety levels. 3. Attention Deficit Hyperactivity Disorder (ADHD) - Perform ADHD testing within the next month. - Urine drug screen today to confirm substance-free status. - Prescribe Adderall XR 15 mg daily to help with focus and memory. - Instruct the patient not to take Adderall on the day of ADHD testing. 4. Substance Use Disorder (in remission) - Encourage the patient to maintain sobriety. - Monitor for any signs of relapse. 5. Anxiety and Hyper-vigilance - Address anxiety and hyper-vigilance through counseling and medication management. - Monitor the patient's stress levels and coping mechanisms. Follow-up: - Schedule a follow-up appointment in one month to evaluate the effectiveness of the medication adjustments and discuss the results of the ADHD testing. 1. Bipolar Disorder: - The patient reported feeling like a zombie, nauseous, and dizzy on the increased dose of Caplyta (42 mg). The patient has not taken it for three days and feels a different kind of dizzy when stopping the medication. - Plan: Decrease Caplyta to 21 mg daily. Monitor for side effects and mood stability. Encourage the patient to continue taking the medication consistently. 2. ADHD: - The patient reported taking Adderall most days, two a day, but then ran out early and took one. The patient prefers two a day and feels more focused and less overwhelmed with the medication. - Plan: Increase Adderall XR to 30 mg every morning. Monitor for side effects and effectiveness in managing ADHD symptoms. 3. Insomnia: - No new complaints or concerns regarding insomnia. - Plan: Continue trazodone 50 mg as needed for sleep. Monitor for effectiveness and side effects. 4. Substance Use Disorder (in remission): - The patient reported feeling much better since stopping substance use and is focused on maintaining sobriety. The patient is aware of the need to distance themselves from friends who are still using substances. - Plan: Encourage the patient to continue prioritizing sobriety and making positive life choices. Recommend seeking counseling for additional support. Follow-up: Schedule a follow-up appointment in one month to monitor medication adjustments, mood stability, and overall progress. 01/23/2024 Primary insomnia (ICD-10 - F51.01) trazodone 100mg hs prn 1. Attention Deficit Hyperactivity Disorder (ADHD) - The patient reports improvement in focus and work performance with the current Adderall XR 30 mg regimen. She requests a refill. Plan: - Continue Adderall XR 30 mg daily - Refill prescription - Monitor for side effects and effectiveness at follow-up visits 2. Insomnia - The patient reports that Trazodone 50 mg is not sufficient for maintaining sleep and has been taking 100 mg instead. Plan: - Increase Trazodone to 100 mg at bedtime for sleep - Educate the patient on sleep hygiene practices - Reassess sleep quality at follow-up visits 3. Depression and Anxiety - The patient is currently on Venlafaxine 21 mg and reports feeling much better and having a stable mood. Plan: - Continue Venlafaxine 21 mg daily - Monitor for side effects and effectiveness at follow-up visits - Encourage the patient to seek counseling for additional support 4. Marital and Interpersonal Issues - The patient reports ongoing marital difficulties and conflicts with neighbors, which are causing significant distress. Plan: - Encourage the patient to seek individual and/or couples counseling to address marital and interpersonal issues - Provide support and guidance during follow-up visits - Monitor the patient's mental health and well-being in relation to these issues 5. Anger Management - The patient acknowledges having a bad temper and difficulty controlling her anger in certain situations. Plan: - Recommend the patient to seek counseling or attend anger management classes to develop healthy coping strategies - Encourage the patient to practice self-awareness and self-regulation techniques - Monitor progress and discuss anger management strategies during follow-up visits Follow-up: - Schedule a follow-up visit in 4 weeks to monitor medication effectiveness, side effects, and progress in addressing marital and interpersonal issues. 08/23/2024 Primary insomnia (ICD-10 - F51.01) trazodone 100mg hs prn 12/03/2023 Attention-defici t hyperactivity disorder, unspecified type (ICD-10 - F90.9) 1. Bipolar Disorder - Increase Caplyta to 42 mg daily for better symptom control. - Continue monitoring mood and symptoms. 2. Post-Traumatic Stress Disorder (PTSD) - Encourage the patient to seek counseling for unresolved issues and forgiveness. - Monitor nightmares and anxiety levels. 3. Attention Deficit Hyperactivity Disorder (ADHD) - Perform ADHD testing within the next month. - Urine drug screen today to confirm substance-free status. - Prescribe Adderall XR 15 mg daily to help with focus and memory. - Instruct the patient not to take Adderall on the day of ADHD testing. 4. Substance Use Disorder (in remission) - Encourage the patient to maintain sobriety. - Monitor for any signs of relapse. 5. Anxiety and Hyper-vigilance - Address anxiety and hyper-vigilance through counseling and medication management. - Monitor the patient's stress levels and coping mechanisms. Follow-up: - Schedule a follow-up appointment in one month to evaluate the effectiveness of the medication adjustments and discuss the results of the ADHD testing. 08/23/2024 Attention-defici t hyperactivity disorder, unspecified type (ICD-10 - F90.9) 01/23/2024 Attention-defici t hyperactivity disorder, unspecified type (ICD-10 - F90.9) 1. Attention Deficit Hyperactivity Disorder (ADHD) - The patient reports improvement in focus and work performance with the current Adderall XR 30 mg regimen. She requests a refill. Plan: - Continue Adderall XR 30 mg daily - Refill prescription - Monitor for side effects and effectiveness at follow-up visits 2. Insomnia - The patient reports that Trazodone 50 mg is not sufficient for maintaining sleep and has been taking 100 mg instead. Plan: - Increase Trazodone to 100 mg at bedtime for sleep - Educate the patient on sleep hygiene practices - Reassess sleep quality at follow-up visits 3. Depression and Anxiety - The patient is currently on Venlafaxine 21 mg and reports feeling much better and having a stable mood. Plan: - Continue Venlafaxine 21 mg daily - Monitor for side effects and effectiveness at follow-up visits - Encourage the patient to seek counseling for additional support 4. Marital and Interpersonal Issues - The patient reports ongoing marital difficulties and conflicts with neighbors, which are causing significant distress. Plan: - Encourage the patient to seek individual and/or couples counseling to address marital and interpersonal issues - Provide support and guidance during follow-up visits - Monitor the patient's mental health and well-being in relation to these issues 5. Anger Management - The patient acknowledges having a bad temper and difficulty controlling her anger in certain situations. Plan: - Recommend the patient to seek counseling or attend anger management classes to develop healthy coping strategies - Encourage the patient to practice self-awareness and self-regulation techniques - Monitor progress and discuss anger management strategies during follow-up visits Follow-up: - Schedule a follow-up visit in 4 weeks to monitor medication effectiveness, side effects, and progress in addressing marital and interpersonal issues. 12/23/2023 Attention-defici t hyperactivity disorder, unspecified type (ICD-10 - F90.9) 1. Bipolar Disorder - Increase Caplyta to 42 mg daily for better symptom control. - Continue monitoring mood and symptoms. 2. Post-Traumatic Stress Disorder (PTSD) - Encourage the patient to seek counseling for unresolved issues and forgiveness. - Monitor nightmares and anxiety levels. 3. Attention Deficit Hyperactivity Disorder (ADHD) - Perform ADHD testing within the next month. - Urine drug screen today to confirm substance-free status. - Prescribe Adderall XR 15 mg daily to help with focus and memory. - Instruct the patient not to take Adderall on the day of ADHD testing. 4. Substance Use Disorder (in remission) - Encourage the patient to maintain sobriety. - Monitor for any signs of relapse. 5. Anxiety and Hyper-vigilance - Address anxiety and hyper-vigilance through counseling and medication management. - Monitor the patient's stress levels and coping mechanisms. Follow-up: - Schedule a follow-up appointment in one month to evaluate the effectiveness of the medication adjustments and discuss the results of the ADHD testing.. 1. Bipolar Disorder - Increase Caplyta to 42 mg daily for better symptom control. - Continue monitoring mood and symptoms. 2. Post-Traumatic Stress Disorder (PTSD) - Encourage the patient to seek counseling for unresolved issues and forgiveness. - Monitor nightmares and anxiety levels. 3. Attention Deficit Hyperactivity Disorder (ADHD) - Perform ADHD testing within the next month. - Urine drug screen today to confirm substance-free status. - Prescribe Adderall XR 15 mg daily to help with focus and memory. - Instruct the patient not to take Adderall on the day of ADHD testing. 4. Substance Use Disorder (in remission) - Encourage the patient to maintain sobriety. - Monitor for any signs of relapse. 5. Anxiety and Hyper-vigilance - Address anxiety and hyper-vigilance through counseling and medication management. - Monitor the patient's stress levels and coping mechanisms. Follow-up: - Schedule a follow-up appointment in one month to evaluate the effectiveness of the medication adjustments and discuss the results of the ADHD testing. 1. Bipolar Disorder: - The patient reported feeling like a zombie, nauseous, and dizzy on the increased dose of Caplyta (42 mg). The patient has not taken it for three days and feels a different kind of dizzy when stopping the medication. - Plan: Decrease Caplyta to 21 mg daily. Monitor for side effects and mood stability. Encourage the patient to continue taking the medication consistently. 2. ADHD: - The patient reported taking Adderall most days, two a day, but then ran out early and took one. The patient prefers two a day and feels more focused and less overwhelmed with the medication. - Plan: Increase Adderall XR to 30 mg every morning. Monitor for side effects and effectiveness in managing ADHD symptoms. 3. Insomnia: - No new complaints or concerns regarding insomnia. - Plan: Continue trazodone 50 mg as needed for sleep. Monitor for effectiveness and side effects. 4. Substance Use Disorder (in remission): - The patient reported feeling much better since stopping substance use and is focused on maintaining sobriety. The patient is aware of the need to distance themselves from friends who are still using substances. - Plan: Encourage the patient to continue prioritizing sobriety and making positive life choices. Recommend seeking counseling for additional support. Follow-up: Schedule a follow-up appointment in one month to monitor medication adjustments, mood stability, and overall progress. 03/26/2024 Attention-defici t hyperactivity disorder, unspecified type (ICD-10 - F90.9) 1. Mental health and substance use - Patient reports a history of drug use as a coping mechanism for depression and relationship issues. She is currently in a better mental state and has no desire to use drugs. She recently discarded drug paraphernalia and is distancing herself from negative influences. Plan: - Encourage patient to continue focusing on self-care and maintaining a healthy lifestyle - Recommend individual therapy or support groups for additional emotional support and coping strategies - Monitor patient's mental health and substance use during follow-up appointments 2. Relationship issues and stress - Patient recently ended a toxic relationship and is experiencing some emotional ups and downs. She is focusing on self-care and making better decisions for her well-being. Plan: - Encourage patient to continue prioritizing self-care and personal growth - Suggest seeking therapy or counseling to help process emotions and develop healthy coping strategies 3. Medication refill - Patient requests a three-month refill of her current medications. Plan: - Refill medications as requested for a three-month supply - Schedule a follow-up appointment in three months to assess patient's progress and medication needs 08/23/2024 Arti Ferrell, a female patient with a history of brain injury, presents with mood fluctuations, relationship issues, and concerns about medication management. Mood Instability Assessment: Patient reports experiencing days of sadness and feeling overwhelmed without apparent reason. She describes feeling melted on these days and mentions listening to music all day, which may exacerbate her mood. The patient's emotional state appears to be significantly impacted by her complicated relationship with her soon-to-be ex-, who is facing incarceration. She expresses conflicting emotions, stating she hates him for his actions but continues to engage in sexual relations with him. This ambivalence and ongoing connection may be contributing to her emotional instability. Plan: - Continue Caplyta as prescribed for mood stabilization. - Recommend journaling as a coping mechanism for processing emotions and thoughts. - Advise against making significant decisions when experiencing emotional turmoil. - Suggest avoiding music or activities that may intensify negative emotions during difficult days. Attention Deficit Hyperactivity Disorder (ADHD) Assessment: Patient is currently taking Adderall for ADHD management. She reports occasional dizziness and a sensation of her world spinning, which may be related to her medication or could be a manifestation of her emotional state. The patient's description of her mind being all over suggests ongoing attention and focus issues. Plan: - Continue Adderall as prescribed for ADHD management. - Monitor for side effects, particularly dizziness and sensations of the world spinning. Sleep Disturbances Assessment: Patient reports no longer using trazodone for sleep, stating she feels very tired and hasn't needed it. She mentions having a full bottle of the medication. Plan: - Discontinue regular trazodone prescription. - Maintain trazodone as an as-needed medication for potential future use. Hormonal Therapy Considerations Assessment: Patient expresses thoughts about discontinuing hormone therapy, citing decreased libido and the medication's effect on increasing her sex drive. This consideration appears to be related to her current emotional state and relationship complications. Plan: - Advise against making decisions about hormone therapy during periods of emotional instability. - Discuss the benefits and risks of continuing or discontinuing hormone therapy at the next follow-up appointment. the note is transcribed using speech recognition software. It is a reflection of a visit with the patient. It might have some inaccuracy, including medication names and transcribing errors, though efforts have been made to correct them. Plan Of Treatment Pending Test Test Name Order Date ADHD Testing 12/03/2023 Next Appt Details Provider Name:Loi franks, 12/03/2024 09:30:00 AM, [address], [facility] [address], [place], [address], Insurance Providers Payer Name Payer Address Payer Phone Subscriber Number Group Number Insured Name Patient Relationship to Insured Coverage Start Date Coverage End Date [facility] [address] [address] [place] [phone] [id number] [id number] MAXIMO FERRELL Self - patient is the insured [facility] [address] [address] [place] [phone] [id number] FERRELLMAXIMO MURDOCK Self - patient is the insured Medical (General) History Medical History History ICD Code Problems: Attention deficit hyperactivit y disorder Bipolar affective disorder, current epis ode depression Cocaine dependence Generalized anxiety disorder Mixed bipolar affective disorder, modera te Primary insomnia , Imported from [place]: [address] Name: Lipid Panel(AMA) w/LDL Calculated Test Result Date: 2023-09-06 07:27:51 Total Cholesterol: 151 mg/dL Triglycerides: 176 mg/dL (High) LDL Cholesterol: 77 mg/dL Lab Interpretation: Abnormal Test Name: Testosterone, Total Test Result Date: 2023-12-03 02:29:58 Testosterone, Total: 84 ng/dL Lab Interpretation: Normal Test Name: Vitamin D 25-Hydroxy Test Result Date: 2023-09-06 07:21:38 Vitamin D, 25-Hydroxy, Total: 42.3 ng/mL Lab Interpretation: Normal Surgical History Surgery Date(Month/Year) Tonsilectomy/adenoids Tonsillectomy ([id number]) 05/12/2009
--- OUTSIDE RECORDS SUMMARY | 2024-11-09 16:21 | XMS_ITS | Clinical Summary ---
Author Organization [facility] Address [address] [place] [address] Care Team Providers Care Form Building Supervisor Name Role Phone Job Fuller APRN-JOSÉ MIGUEL Unavailable [phone] Job Fuller APRN-JOSÉ MIGUEL Primary Care Provider Source Comments [facility],non-owned Affiliates and Associated Physician Practices is amultiple site organization consisting of ambulatory clinics and hospital sitesin [place], [place], [place] and [place]. This disclosure is being madepursuant to the Care Everywhere program and may not contain all information available regarding this patient. Last updated 18.[facility] Allergies Active Allergy Reactions Criticality Noted Date Comments Allergy Swelling Medium 05/20/2016 Sulfa Drugs Urticaria Medium 02/03/2020 Medications * Be aware that medications may not be up to date on this document. Alwaysverify current medications with the patient. HYDROcodone-ac etaminophen (NORCO) 7.5-325 MG tablet TAKE 1 TABLET BY MOUTH TWICE DAILY NEEDED MUST LAST 30 DAYS 05/09/20 20 Active cyanocobalamin (Vitamin B-12) injection INJECT 1 ML INTRAMUSCULARLY ONCE A WEEK Active Depo-Estradiol injection INJECT 0.5 ML (CC) INTRAMUSCULARLY ONCE EVERY 2 TO 3 WEEKS 06/30/19 24 Active Lumateperone Tosylate (Caplyta) 10.5 MG CAPS Take 1 capsule by mouth once daily Active Semaglutide (Ozempic, 0.25 or 0.5 MG/DOSE,) 2 MG/1.5ML SOPN Active traZODone (Desyrel) 100 MG tablet TAKE 1 TABLET BY MOUTH ONCE DAILY NEEDED FOR 90 DAYS Active omeprazole (PriLOSEC) 20 MG capsule Take 1 (one) capsule by mouth daily before breakfast Active Progesterone 100 MG capsule Take 1 (one) capsule by mouth at bedtime Active TESTOSTERONE BU Active amphetamine-de xtroamphetamin e (Adderall) 30 MG tablet Take 1 (one) tablet by mouth every morning Active linaCLOtide (Linzess) 290 MCG capsule Take 1 (one) capsule by mouth daily before breakfast Take on an empty stomach at least 30 minutes prior to first meal of the day. Active phenazopyridin e (Pyridium) 100 MG tablet Take 1 (one) tablet by mouth 3 times daily as needed for Pain Active Active Problems Problem Noted Date Diagnosed Date Anemia 10/01/2024 Generalized anxiety disorder 10/01/2024 Hypothyroidism 10/01/2024 Low back pain 10/01/2024 Microscopic hematuria 10/01/2024 Mixed bipolar affective disorder, moderate 10/01 Plantar fascial fibromatosis 10/01/2024 Diabetes mellitus 09/17/2024 Herpes simplex 09/17/2024 Sensorineural hearing loss ( SNHL) of right ear with restricted hearing of left ear 07/01/2023 Vertigo 06/19/2023 Vitamin D deficiency 06/19/2023 Prolapsed cervical intervertebral disc Hyperlipidemia 07/20/2020 Insomnia 12/15/2018 Gastroesophageal reflux disease 02/17/2018 Fibromyalgia 01/05/2018 Obese 01/05/2018 Attention deficit hyperactiv ity disorder, 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 Acute bronchitis 07/17/2017 Depressive disorder 01/12/2017 Allergic rhinitis 11/07/2016 Resolved Problems Problem Noted Date Diagnosed Date Resolved Date Acute sinusitis 03/10/2019 10/29/2024 Constipation 01/08/2019 10/29/2024 Encounters Date Type Department Care Team Description 10/01/2024 2:00 PM CDT Office Visit [facility] [address] [place] [address] Miguel A Hood Che, MD Urinary frequency (Primary Dx); Dysuria; Constipation, unspecified constipation type 10/01/2024 Travel from Last 3 Months Family History Relation Name Status Comments Father Mother Social History Tobacco Use Types Packs/Day Years Used Date Smoking Tobacco: Former Cigarettes Q uit: 05/12/2001 Smokeless Tobacco: Never Tobacco Cessation:Counseling Given: Not Answered Alcohol Use Standard Drinks/Week Comments Yes 0 (1 standard drink = 0.6 oz pur e alcohol) 1 PHQ-2 Answer Date Recorded Patient Health Questionnaire-2 Score 0 10/01/2024 Comments No Sex and Gender Information Value Date Recorded Sex Assigned at Not on file Legal Sex Female 8:54 AM CDT Gender Identity Not on file Sexual Orientation Not on file Last Filed Vital Signs Vital Sign Reading Time Taken Comments Blood Pressure 120/68 10/01/2024 1:30 PM CDT Pulse 105 07/07/2020 10:58 AM SOLAR SYSTEM INSTALLER Temperature 36.1 C (97 F) 07/07/2020 10:58 AM SOLAR SYSTEM INSTALLER Respiratory Rate 20 06/02/2020 9:05 AM SOLAR SYSTEM INSTALLER Oxygen Saturation 96% 07/07/2020 10:58 AM SOLAR SYSTEM INSTALLER Inhaled Oxygen Concentration - - Weight 67.2 kg (148 lb 3.2 oz) 10/01/2024 1:30 P M CDT Height 162.6 cm (5' 4) 10/01/2024 1:30 PM CDT Body Mass Index 25.44 10/01/2024 1:30 PM CDT Plan of Treatment Upcoming Encounters Date Type Department Care Team (Late st Contact Info) Description 11/18/2024 4:00 PM CDT Office Visit [facility] - [facility] [address], [address] [address] Miguel A Hood Che, MD [address] [place] [address] Health Maintenance Due Date Last Done Comments COLOGUARD (AGES 45-75) - COL ON CA SCREENING 1970 COLON MONITORING 1970 COLONOSCOPY - COLON CA SCREENING 1970 CT COLONOGRAPHY - COLON CA SCREENING 1970 Colorectal Cancer Screening 1970 FIT - COLON CA SCREENING 1970 FLEX SIG - COLON CA SCREENING 1970 MAMMOGRAM 1970 HIV SCREENING 1985 HEPATITIS C SCREENING 03/11/1988 DTAP/TDAP/TD VACCINES (1 - Tdap) 1989 HEPATITIS B VACCINE (1 of 3 - 19+ 3-dose series) 1989 PNEUMOCOCCAL VACCINE 50+ (1 of 2 - PCV) 1989 PAP SMEAR 1991 DIABETES-STATIN 2010 ZOSTER VACCINE (1 of 2) 2020 COVID-19 VACCINE (2 - 2023-2 5 season) 2024 12/12/2020 DIABETES - URINE PROTEIN SCREENING 05/12/2024 DIABETES RETINOPATHY SCREENING 10/01/2024 DIABETES-FOOT EXAM WITH MONOFILAMENT 10/01/2024 DIABETES-HGB A1C 10/01/2024 DIABETES-SERUM CREATININE 12/01/2024 12/02/2023 INFLUENZA VACCINE (Season Ended) 2025 01/28/2017, 01/23/2016, 02/07/2015 HIB VACCINE Aged Out No longer eligi ble based on patient's age to complete this topic HPV VACCINE Aged Out No longer eligi ble based on patient's age to complete this topic MENINGOCOCCAL (Group B) VACCINE SHARED DECISION-MAKING Aged Out No longer eligible based on patient's age to complete this topic MENINGOCOCCAL GROUPS A/C/Y/W VACCINE Aged Out No longer eligible b ased on patient's age to complete this topic Insurance [facility] * Guarantor: HOPE BARNETT Account Type Relation to Patient Date of Phone Billing Address Personal/Family [address] [place] [address] [facility] * Guarantor: HOPE BARNETT Account Type Relation to Patient Date of Phone Billing Address Personal/Family [address] [place] [address] * Guarantor: HOPE BARNETT Account Type Relation to Patient Date of Phone Billing Address Personal/Family [address] [place] [address] Care Teams Form Building Supervisor Relationship Specialty Start Date End Date Job Fuller, KAYLIE-JOSÉ MIGUEL [address] [place] [address] PCP - General 06/06/20 Job Fuller, KAYLIE-JOSÉ MIGUEL [address] [place] [address] 05/29/20
--- OUTSIDE RECORDS SUMMARY | 2024-11-09 16:21 | XMS_ITS | Encounter Summary ---
Author Organization [facility] Address [address] [place] [address] Care Team Providers Care Examiner Rating Clerk Name Role Phone Job Fuller APRN-FIRE DEPARTMENT BATTALION CHIEF Unavailable [phone] Job Fuller SUPERVISOR COFFEE-FIRE DEPARTMENT BATTALION CHIEF Primary Care Provider Encounter Details Date Type Department Care Team (Late st Contact Info) Description 05/16/2023 Lab Requisition [facility] - DermPath Lab [address] [place] [address] Jim Westbrook MD [address] [place] [address] Social History Tobacco Use Types Packs/Day Years Used Date Smoking Tobacco: Former Cigarettes Q uit: 05/12/2001 Smokeless Tobacco: Never Alcohol Use Standard Drinks/Week Comments Yes 0 (1 standard drink = 0.6 oz pur e alcohol) Comments Unknown Sex and Gender Information Value Date Recorded Sex Assigned at Not on file Legal Sex Female 8:54 AM CDT Gender Identity Not on file Sexual Orientation Not on file documented as of this encounter Plan of Treatment Upcoming Encounters Date Type Department Care Team (Late Contact Info) Description 11/18/2024 4:00 PM CDT Office Visit [facility] - ONCOLOGY RN [address] [place] [address] Miguel A Hood Che, MD [address] [place] [address] documented as of this encounter Procedures Procedure Name Priority Date/Time Associated Diagnosis Comments DERMATOPATHOLOGY Routine 05/15/2023 12:0 0 AM SAILING INSTRUCTOR documented in this encounter Results * DERMATOPATHOLOGY (05/15/2023 12:00 AM SAILING INSTRUCTOR) Case Report Dermatopathology Report Case: [id number] Authorizing Provider: Jim Westbrook MD Collected: 05/15/2023 12:00 AM Ordering Location: [facility] DermPath Lab Received: 05/16/2023 12:53 PM Pathologist: Alisia Masters MD Specimen: Skin, left upper chest 2:48 PM SAILING INSTRUCTOR DERMATOPATHOLOGY LABORATORY Final Diagnosis Specimen A. SKIN, left upper chest: HYPERPLASTIC (HYPERTROPHIC) ACTINIC KERATOSIS WITH ACANTHOLYTIC FEATURES (L57.0) (see microscopic description) 2:48 PM SAILING INSTRUCTOR DERMATOPATHOLOGY LABORATORY at 1448 SAILING INSTRUCTOR Clinical History AK vs BCCA. Path#[id number] 2:48 PM SAILING INSTRUCTOR DERMATOPATHOLOGY LABORATORY Gross Description Specimen A: Received is one formalin filled container labeled with the patient's name and designated left upper chest. The specimen consists of a shave biopsy measuring 4x2x1 mm. Jar 0. 2:48 PM SAILING INSTRUCTOR DERMATOPATHOLOGY LABORATORY Microscopic Description Specimen A. SKIN, left upper chest: There is hyperkeratosis alternating with parakeratosis. There is epidermal hyperplasia with disorderly maturation of keratinocytes with nuclear pleomorphism confined to the lower half of the epidermis. Focally there is a suprabasilar cleft with acantholytic cells. Additional deeper sections were obtained and reviewed. 2:48 PM SAILING INSTRUCTOR DERMATOPATHOLOGY LABORATORY Disclaimer An external and internal positive and negative controls are appropriate for the histochemical, immunohistochemical and immunofluorescence stain(s) in this case (if any), except where stated explicitly. The performance characteristics of the stain(s) cited in this report were developed and its performance characteristic determined by the Dermatopathology Laboratory at [facility], directed by Dr. Neeraj Case. These tests need not be, and therefore are not, approved by the [place] Food and Drug Administration. The tests are used for clinical purposes. Billing Codes Specimen Charges Stain Charges 62703 1 4 2:48 PM SAILING INSTRUCTOR DERMATOPATHOLOGY LABORATORY Embedded Images 4 2:48 PM SAILING INSTRUCTOR DERMATOPATHOLOGY LABORATORY Pathology/Cytolog y TISSUE SPECIMEN FROM SKIN / Unknown 05/15/2023 05/16/2023 12:53 PM SAILING INSTRUCTOR us Jim Westbrook MD LAB - PATHOLOGY/CYTOLOGY ORDER KERON Final Result DERMATOPATHOLOGY LABORATORY [facility] - Department of Dermatology [address] [phone] documented in this encounter Visit Diagnoses Not on filedocumented in this encounter Care Teams Examiner Rating Clerk Relationship Specialty Start Date End Date Job Fuller APRN-FIRE DEPARTMENT BATTALION CHIEF [address] [place] [id number] PCP - General 06/06/20 Job Fuller APRN-FIRE DEPARTMENT BATTALION CHIEF [address] [place] [id number] 05/29/20 documented as of this encounter
--- OUTSIDE RECORDS SUMMARY | 2024-11-09 16:21 | XMS_ITS | Encounter Summary ---
Author Organization [facility] Address [address] [place] [address] Care Team Providers Care Lace Roller Name Role Phone Ele Green MD Primary Care Provider [phone] Encounter Details Date Type Department Care Team (Late st Contact Info) Description 02/02/2018 Abstract [facility] CONVERSION [address] [place] [address] , Generic ConversionMD Social History Tobacco Use [...] on filedocumented in this encounter Care Teams Lace Roller Relationship Specialty Start Date End Date Ele Green MD [address] [place] [phone] PCP - General EMERGENCY MEDICINE 03/10/23 documented as of this encounter
--- OUTSIDE RECORDS SUMMARY | 2024-11-09 16:21 | XMS_ITS | Data Portability ---
Author Organization [facility] Address [address] [place] [address] Care Team Providers Care Facilities Maintenance Technician Name Role Phone MEHRANSUSIE MERCER Primary Care Provider Assessment Encounter Date Assessment Date Assessment LastModified [...] Modified Time Details Appointments None recorded. Lab testosteron e, total, serum 2023 [facility] system (Lab), [address] [place], [address], 4 13:06:30 testosteron e, free, serum 2023 024 Health system (Lab), [address] [place], [address], 4 13:06:31 CMP, serum or plasma 2023 024 Health system (Lab), [address], [place], [address], 4 13:06:30 hormone panel, serum or plasma 2023 024 Health system (Lab), [address], [place], [address], 4 11:58:04 Referral None recorded. Procedures None recorded. Surgeries dilation and curettage with hysteroscop y (SURG) 2023 024 [facility], [address], [place], [address], 4 15:05:27 Imaging US, pelvis 2023 [address], [address], [place], [address], 4 15:22:56 US, transvagina l 2023 [address], [address], [place], [address], 4 15:22:56 MAMMO, screening, bilateral [address] [facility], [address], [place], [address], 4 10:56:46 US, pelvis, complete 2023 024 [facility] [address] [place], [address], [place], [address], 4 13:24:25 Medication Orders None recorded. Patient TargetsNo targets [...] or kits canno t be used [facility] . Femal e Estra diol Range s: Folli cular phasE 12.4- 233 pg/mL Ovula tion phasE 41.0- 398 pg/mL Lutea l phasE 22.3- 341 pg/mL Postm enopa usal <5-13 8 pg/mL Healt hy Pregn ant Women 1st Trime ster 154-3 243 pg/mL 2nd Trime ster 1561- 07929 pg/mL 3rd Trime ster 8525- >3000 0 pg/mL Not Available [facility] (Lab) [address] [place], [address], 10/10/2023 11:58:04 10/09/19 24 10/09/2023 FSH, LH, ESTRA DIOL FSH 15.0 mIU/m L This assay was perfo rmed using [employer] reage nts and test kits. Value s obtai kieran with other assay metho ds or kits canno t be used [facility] . Femal es Folli cular : 3.5-1 2.5 mIU/m L Ovula tion: 4.7-2 1.5 mIU/m L Lutea l: 1.7-7 .7 mIU/m L Postm enopa use: 25.8- 134.8 mIU/m L Not Available [facility] (Lab) [address] [place], [address], 10/10/2023 11:58:04 10/09/19 24 10/09/2023 FSH, LH, ESTRA DIOL LH 8.7 mIU/m L This assay was perfo rmed using [employer] reage nts and test kits. Value s obtai kieran with other assay metho ds or kits canno t be used [facility] . Femal es Mid-F ollic ular: 2.4-1 2.6 mIU/m L Mid-C ycle: 14.0- 95.6 mIU/m L Mid-L uteal : 1.0-1 1.4 mIU/m L Postm enopa use: 7.7-5 8.5 mIU/m L Not Available [facility] (Lab) [address] [facility], [place], [address], 10/10/2023 11:58:04 12/02/19 24 12/02/2023 TESTO STERO NE, TOTAL testosterone , total 84 NG/dL 0-100 Not Available [facility] (Lab) [address] [facility], [place], [address], 12/07/2023 13:06:30 12/02/19 24 12/02/2023 CMP(C OMPRE HENSI VE METAB OLIC PANEL ) sodium 139 mmol/ L 133-14 [address] [facility] (Lab) [address] [facility], [place], [address], 12/07/2023 13:06:30 12/02/19 24 12/02/2023 CMP(C OMPRE HENSI VE METAB OLIC PANEL ) potassium 4.2 mmol/ L 3.5-5. [address] [facility] (Lab) [address] [facility], [place], [address], 12/07/2023 13:06:30 12/02/19 24 12/02/2023 CMP(C OMPRE HENSI VE METAB OLIC PANEL ) chloride 103 mmol/ L 98-[address] [facility] (Lab) [address] [facility], [place], [address], 12/07/2023 13:06:30 12/02/19 24 12/02/2023 CMP(C OMPRE HENSI VE METAB OLIC PANEL ) carbon dioxide 26 mmol/ L 21-[address] [facility] (Lab) [address] [place], [address], 12/07/2023 13:06:30 12/02/19 24 12/02/2023 CMP(C OMPRE HENSI VE METAB OLIC PANEL ) anion gap 10 mmol/ L 4-[address] [facility] (Lab) [address] [facility], [place], [address], 12/07/2023 13:06:30 12/02/19 24 12/02/2023 CMP(C OMPRE HENSI VE METAB OLIC PANEL ) blood urea nitrogen 10 mg/dL 7-25 Not Available [facility] (Lab) [address] [facility], [place], [address], 12/07/2023 13:06:30 12/02/19 24 12/02/2023 CMP(C OMPRE HENSI VE METAB OLIC PANEL ) creatinine 0.86 mg/dL 0.60-1 .[address] [facility] (Lab) [address] [facility], [place], [address], 12/07/2023 13:06:30 12/02/19 24 12/02/2023 CMP(C OMPRE HENSI VE METAB OLIC PANEL ) egfrcr (CKD-epi 2020) 81 mL/mi n/1.7 3_m2 >=[address] Available [facility] (Lab) [address] [facility], [place], [address], 12/07/2023 13:06:30 12/02/19 24 12/02/2023 CMP(C OMPRE HENSI VE METAB OLIC PANEL ) calcium 9.4 mg/dL 8.3-10 .[address] [facility] (Lab) [address] [facility], [place], [address], 12/07/2023 13:06:30 12/02/19 24 12/02/2023 CMP(C OMPRE HENSI VE METAB OLIC PANEL ) glucose 99 mg/dL 70-[address] [facility] (Lab) [address] [facility], [place], [address], 12/07/2023 13:06:30 12/02/19 24 12/02/2023 CMP(C OMPRE HENSI VE METAB OLIC PANEL ) protein, total 7.0 g/dL 6.4-8. [address] [facility] (Lab) [address] [facility], [place], [address], 12/07/2023 13:06:30 12/02/19 24 12/02/2023 CMP(C OMPRE HENSI VE METAB OLIC PANEL ) albumin 4.5 g/dL 3.5-5. [address] [facility] (Lab) [address] [facility], [place], [address], 12/07/2023 13:06:30 12/02/19 24 12/02/2023 CMP(C OMPRE HENSI VE METAB OLIC PANEL ) ALT 12 units /L 9-[address] Not [address] [facility] (Lab) [address] [facility], [place], [address], 12/07/2023 13:06:30 12/02/19 24 12/02/2023 CMP(C OMPRE HENSI VE METAB OLIC PANEL ) alkaline phosphatase 73 units /L 34-[address] [facility] (Lab) [address] [facility], [place], [address], 12/07/2023 13:06:30 12/02/19 24 12/02/2023 CMP(C OMPRE HENSI VE METAB OLIC PANEL ) AST 15 units /L 13-[address] [facility] (Lab) [address] [facility], [place], [address], 12/07/2023 13:06:30 12/02/19 24 12/02/2023 CMP(C OMPRE HENSI VE METAB OLIC PANEL ) bilirubin, total 0.9 mg/dL 0.2-1. [address] [facility] (Lab) [address] [place], [address], 12/07/2023 13:06:30 12/02/19 24 12/02/2023 TESTO STERO [...] cteri stics have been deter mined by [facility] [place]. It has not been clear ed or appro tiarra by the U.S. Food and Drug Admin istra tion. This assay has been valid ated pursu ant to the CLIA regul ation s and is used for clini estella purpo ses. Perfo rming Organ izati on Infor matio n: Site ID: AMD Name: [facility] ost[facility]oseph [facility] tute Addre ss: [id number] [place], [place] Direc tor: Tito Belcher MD PhD Not Available [facility] (Lab) [address] [facility], [place], [address], 12/07/2023 13:06:31 10/13/19 24 10/13/2023 US, pelvi s No observ ation record ed. [email or web address] [place] [address], [place], [address], 10/13/2023 13:09:06 10/13/19 24 10/13/2023 US, trans vagin al No observ ation record ed. [email or web address] [place] [address], [place], [address], 10/13/2023 13:08:56 10/13/19 24 10/13/2023 US, pelvi s No observ ation record ed. [email or web address], [place], [address], 10/22/2023 11:29:49 Result Notes None recorded. Procedures Surgical History Date Name Laterality Status Provider Name and Address Organization Details Recorded Time 11/24/19 24 DILATION AND CURETTAGE WITH HYSTEROSCOPY (SURG) completed Madi Lester [facility] 11/24/2023 16:16:49 10/09/19 24 Date of Last Pap Smear completed [facility] 12/02/2023 10:05:10 05/12/19 23 Date of Last Colonoscopy completed [facility] 10/09/2023 11:57:28 05/12/19 11 Tonsillectomy completed [facility] 10/09/2023 12:06:33 05/12/19 10 thyroidectomy completed [facility] 10/09/2023 12:06:47 Tubal Ligation completed [facility] 10/09/2023 12:06:25 Imaging Results None recorded. Procedure Notes None recorded. Medical Equipment None Reported. Allergies Allergen ID Allergen Name Allergen Category Reaction Reaction Severity Criticality Documentation Date Start Date Code Code System Note Provider Name and Address Organization Details Recorded Time 68064 Substance with sulfonami de structure and antibacte rial mechanism of action (substanc e) medicatio n Not available Not available Not available 10/09/2023 24129 8003 SNOMED [facility] 11:51:23 Medications Name Sig Start Date [...] Updated DateTime 10/09/2023 162.56 cm 32.3 kg/m2 46217.37 g 124 mm[Hg] 78 mm[Hg] Cynthia Landeros [place] - [facility] 4 11:51:13 Date Recorded Body height Body mass index (BMI) Body weight Systolic blood pressure Diastolic blood pressure Provider Name and Address Organization Details Last Updated DateTime 10/23/2023 162.56 cm 32.9 kg/m2 41357.02 g 101 mm[Hg] 67 mm[Hg] Renée Porrasmanuel [facility] 4 09:35:21 Date Recorded Body height Body mass index (BMI) Body weight Systolic blood pressure Diastolic blood pressure Provider Name and Address Organization Details Last Updated DateTime 12/02/2023 162.56 cm 31.8 kg/m2 93718.59 g 106 mm[Hg] 73 mm[Hg] Cynthia Tigre [facility] 4 10:03:58 Social History Question Answer Notes LastModified by Organizat ion Details LastModified Time Tobacco Smoking Status Current Every Day Smoker Cynthia Landeros [facility], [facility] 10/09/2023 12:02:44 Are You Blind Or Do You Have Difficulty Seeing? No Information n ot available 10/09/2023 What Is Your Level Of Caffeine Consumption? Moderate Information not available 10/09/2023 In The 14 Days Before Symptom Onset, Have You Had Close Contact With A Laboratory-confirm ed COVID-19 While That Case Was Ill? No Information n ot available 10/09/2023 In The 14 Days Before [...] Of Diet Are You Following? REGULAR Information n ot available 10/09/2023 What Is The Highest Grade Or Level Of School You Have Completed Or The Highest Degree You Have Received? [id number] Information not available 10/09/2023 Are There Any [...] Yes Information not available 10/09/2023 Do You Use Sunscreen Routinely? Yes Information not available 10/09/2023 Do You Have Difficulty Walking Or Climbing Stairs? No Information not available 10/09/2023 Sex: Female Functional Status Question Answer Note LastModified by Organizat ion Details LastModified Time Do you use any illicit or recreational drugs? No stopped cocaine 2 months ago. used 15-20 years Information not available 10/09/2023 What is your level of alcohol consumption? Occasional Information not available 10/09/2023 Are you currently employed? No Information not available 10/09/2023 Are you able to walk? YESWOREST Information not available 10/09/2023 Are you able to care for yourself? Yes Information not available 10/09/2023 Do you have difficulty dressing or bathing? No Information not available 10/09/2023 What is your exercise level? None Information not available 10/09/2023 Mental Status Question Answer Note LastModified by Organization D etails LastModified Time Do you feel stressed (tense, restless, nervous, or anxious, or unable to sleep at night)? [id number] Information not available 10/09/2023 Family History Relationship Description Onset Age of this Age Resolved Age Notes LastModified by Organization Details LastModified Time Father Parkinson's disease Not available 2023 12:02:07 Mother Pulmonary fibroplasia Not available 09/11 12:02:32 Sister Pulmonary fibroplasia Not available 09/11 12:02:32 Medical History Condition Response Allergies (Food, seasonal, environmental ) N Other Y Drug/Latex Allergies/Reactions N Blood Transfusion N Breast Cancer N Dermatologic Disorders N Lung Disease N Defects or Inherited Disease N Breast Problem N Gestational Diabetes N Hematologic disorders N Anesthesia Complications N History of STI Y Deep Vein Thrombosis N Polycystic ovary syndrome N Anxiety Disorder Y Autoimmune disease N Arthritis N Polyps N Infertility N Acid Reflux (GERD) Y History of abnormal pap N Cancer N Varicosities N Stroke N Neurologic/Epilepsy N Endometriosis N High Cholesterol Y Fibromyalgia N Headaches N Kidney Disease N Heart Problems N Thyroid Problems Y Kidney or Bladder Problems N GI Problems N Eating Disorder N Anemia [...] SNOMED-CT Code Diagnosis ICD10 Code Diagnosis Note [id number] [facility] [address] [address] 10/09/2023 11:22:36 10/09/2023 12:35:07 Postmenopausal bleeding 98770298 N95.0 Today we agreed to update a [...] of plan of care. 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 [id number] Alhaji Eldridge MD [place] [address] [address] 10/13/2023 11:39:42 10/13/2023 12:49:01 Postmenopausal bleeding 79798971 N95.0 [id number] SHAE CASH MD [place] [address] [address] 10/23/2023 09:17:40 10/29/2023 06:52:18 Postmenopausal bleeding 36973214 N95.0 - on HRT (estrogen and testostero ne) for years, no progestero ne therapy until August- two episodes of PMB- pelvic US demonstrat es heterogeno us and threatened endometriu m, 7mm- recommend full endometria l sampling with hysterosco py and D&C; r/b/a discussed with patient- continue progestero ne therapy until D&C [id number] SHAE CASH MD [place] [address] [address] 12/02/2023 09:52:04 12/02/2023 10:42:17 Hormone replacement therapy 553201454 Z79.890 - on IM testostero ne and estrogen, PO progestero ne- reports facial hair growth, voice deepening- will check testostero ne and CMP today; patient not fasting for lipid panel- follow up on results as available Postoperative visit 8897 38631 Z48.89 - s/p hysterosco py D&C 11/23- meeting post op milestones - ok to d/c restrictio ns- pathology: benign- emphasized importance of progestero ne therapy while on HRT Health Concerns Section Related Observation LastModified by Organization Detai ls LastModified Time None Recorded Concern Status LastModified by Organization Details LastModified Time None Recorded Advance Directives Directive None Recorded Payers Insurance Date Sequence Insurance Name Policy Number Policy Barth Covered Member ID Barth Member ID Guarantor Name 11/30/2023 1 R [id number] Enrique Ferrell [id number] Hope Ferrell Notes Date Note Type Note Provider Name and Address Organization Details Recorded Time 10/09/2023 text/html [facility] - Abnormal BleedingReported bypatient.Onset/Timin g:postmenopause Duration:1-2 days Quality:spotting (brownish like old blood);irregular Context:current HRT use (Testosterone injections/Progestero ne--not new regimen) Associated Symptoms:no dysmenorrhea; no abdominal pain; no dyspareunia; no fatigue; no dizziness; no anemia/iron supplements; no shortness of breath; no CP/palpitations;pelvi c pain(left lower) Gertrude Peñaloza [facility] [address], [place], [address], [facility] 10/09/2023 12:34:33 10/23/2023 text/html Presents for [...] cancer. SHAE CASH MD [address], [place], [address], [facility] 10/28/2023 22:58:21 12/02/2023 text/html S/p hysteroscopy D&C 11/23. Patient doing well, no complaints. Pain resolved. Tolerating general diet. Denies nausea or vomiting. No shortness of breath or chest pain. Ambulating. Bleeding resolved. Patient on HRT with IM estrogen and testosterone. Patient reports increased facial hair and voice deepening. SHAE CASH MD [address], [place], [address], [facility] 12/02/2023 10:36:37 OBGyn Episode Ob Episode Information Episode Created Date Number of Fetuses Patient Bloodtype Patient rh Status Prepregnancy Weight lbs Domestic Partner Domestic Partner Phone Father Name Custom Dressmaker Status 10/09/19 24 1 CLOSED Fetus Data First Name Last Name Admitted to NICU Weight (g) Sex Living Outcome Pediatric Complications Fetus ID Race Codes Race Delivery Type M Full Term [id number] Vaginal Delivery [place] Calculation Initial [place] Date [...] Domestic Partner Domestic Partner Phone Father Name Custom Dressmaker Status 10/09/19 24 1 CLOSED Fetus Data First Name Last Name Admitted to NICU Weight (g) Sex Living Outcome Pediatric Complications Fetus ID Race Codes Race Delivery Type , Spontane ous 99788 [place] Calculation Initial [place] Date Initial Exam [...] Domestic Partner Domestic Partner Phone Father Name Custom Dressmaker Status 10/09/19 24 1 CLOSED Fetus Data First Name Last Name Admitted to NICU Weight (g) Sex Living Outcome Pediatric Complications Fetus ID Race Codes Race Delivery Type F Full Term 35998 Vaginal Delivery [place] Calculation Initial [place] Date [...] Domestic Partner Domestic Partner Phone Father Name Custom Dressmaker Status 10/09/19 24 1 CLOSED Fetus Data First Name Last Name Admitted to NICU Weight (g) Sex Living Outcome Pediatric Complications Fetus ID Race Codes Race Delivery Type , Induced 07102 [place] Calculation Initial [place] Date Initial Exam [...] Domestic Partner Domestic Partner Phone Father Name Custom Dressmaker Status 10/09/19 24 1 CLOSED Fetus Data First Name Last Name Admitted to NICU Weight (g) Sex Living Outcome Pediatric Complications Fetus ID Race Codes Race Delivery Type , Spontane ous 43613 [place] Calculation Initial [place] Date Initial Exam [...] Domestic Partner Domestic Partner Phone Father Name Custom Dressmaker Status 10/09/19 24 1 CLOSED Fetus Data First Name Last Name Admitted to NICU Weight (g) Sex Living Outcome Pediatric Complications Fetus ID Race Codes Race Delivery Type , Induced 11253 [place] Calculation Initial [place] Date Initial Exam [...] Domestic Partner Domestic Partner Phone Father Name Custom Dressmaker Status 10/09/19 24 1 CLOSED Fetus Data First Name Last Name Admitted to NICU Weight (g) Sex Living Outcome Pediatric Complications Fetus ID Race Codes Race Delivery Type F Full Term 63650 Vaginal Delivery [place] Calculation Initial [place] Date [...]
--- OUTSIDE RECORDS SUMMARY | 2024-11-09 16:21 | XMS_ITS | Data Portability ---
Author Organization [facility], Main Office Address [address] [place] [address] Assessment No assessment recorded. Plan of Treatment Reminders Order Date Submit Date Provider Last Modified By Organization Details Last Modified Time Details Appointments None recorded. Lab HbA1c (hemoglobi n A1c), blood 2024 025 [facility] ([facility]), [address] [place], [address], 08:17:28 Referral diabetic ophthalmol ogy referral - Please call patient to schedule an appointmen t. Thank you. 2024 025 [facility], [address] , [place], [address], 15:11:01 urologist referral - painful interstiti al cystitis . Please eval and treat. Please call patient to schedule an appointmen t. Thank you 2024 [address] [facility] [address] Misti Zamarripa, [address] [place] [address]. [place] [address], [place], [address], 13:49:02 Procedures None recorded. Surgeries None recorded. Imaging MAMMO, screening, digital, bilateral [address], [facility] [facility] [address], [place], [address], 13:04:51 MAMMO, screening, digital, bilateral - Please call patient to schedule. [address], [address], [place], [address], 15:56:19 Medication Orders acyclovir 400 mg tablet 2024 025 [id number], [address], [place], [place], [phone], 09:35:10 Linzess 290 mcg capsule 2024 025 [facility] #[id number], [address], [place], [place], [phone], 10:25:46 Patient TargetsNo targets recorded. Patient Instructions Encounter Date Encounter Id Patient Instructions Last Modified By Organization Details Last Modified Time 09/17/2024 [id number] She's not fastin g , so we will draw lipid panel , cmp next time Not available 09/17/2024 09:55:41 Reason for Referral Urologist Referral for Pain of truncal structure painful interstitial cystitis . Please eval and treat. Please call patient to schedule an appointment. Thank you Referring Physician: Carlos Fuller [facility], Encounter Date: 09/17/2024 Diabetic Ophthalmology Refer ral for Diabetes mellitus Please call patient to schedule an appointment. Thank you. Referring Physician: [facility], Encounter Date: 09/17/2024 Problems Name Problem SNOMED Code Status Onset Date Resolution Date Notes Provider Name and Address Organization Details Recorded Time Plantar fascial fibromatosis 37603900 Active Not Available [facility] 3 07:31:46 Backache 884489084 Active Not Available [facility] 3 07:31:46 Microscopic hematuria 742935466 Active Not Available [facility] 3 07:31:46 Herpesvirus infection 58501053 Active Not Available [facility] 3 07:31:46 Thyroid dysfunction 731328111 Active Not Available [facility] 3 07:31:46 Closed fracture of lateral malleolus 04618970 Active Not Available [facility] 3 07:31:46 Depressive disorder 32097429 Active Not Available [facility] 3 07:31:46 Inflammatory disorder of extremity 650120127 Active Not Available [facility] 3 07:31:46 Mixed urinary incontinence 864556346 Active Not Available [facility] 3 07:31:46 Fracture of lower leg 436280130 Active Not Available [facility] 3 07:31:46 Irritable bowel syndrome characterized by constipation 237973622 Active 2024 DEBO Tripathi [address], [address], [place], [address] , [place] [facility] 5 10:24:20 Screening mammography Active 2024 DEBO Tripathi [address], [address], [place], [address] , [place] [facility] 5 10:31:07 Adult health examination Active 2024 DEBO Tripathi [address], [address], [place], [address] , [place] [employer] [facility] 5 12:38:45 Chronic primary bladder pain syndrome Active 2024 DEBO Tripathi [address], [address], [place], [address] , [place] [facility] 5 09:29:16 Pain of truncal structure 477634346 Active 2024 DEBO Tripathi [address], [address], [place], [address] , [place] [facility] 5 09:30:03 Herpes simplex 47726958 Active 2024 DEBO Tripathi [address], [address], [place], [address] , [place] [facility] 5 09:34:15 Maturity onset diabetes of the young, type 2 501475395 Active 2024 DEBO Tripathi [address], [address], [place], [address] , [place] [facility] 5 09:42:44 Diabetes mellitus 15928520 Active 2024 DEBO Tripathi [address] [facility], [facility] [address], [place], [address] , [facility] 5 09:43:13 Notes:Earline is her pain kami gement Problem Notes None recorded. Procedures Surgical History Date Name Laterality Status Provider Name and Address Organization Details Recorded Time 07/12/19 10 tonsillectomy completed Heidi Howell RN [facility] 07/23/2024 10:11:38 06/19/19 10 partial substernal thyroidectomy completed Heidi Howell RN [facility] 07/23/2024 10:12:30 08/03/18 74 procedure on urethra completed Heidi Howell RN [facility] 07/23/2024 10:13:24 Imaging Results None recorded. Procedure Notes None recorded. Medical Equipment None Reported. Allergies Allergen ID Allergen Name Allergen Category Reaction Reaction Severity Criticality Documentation Date Start Date Code Code System Note Provider Name and Address Organization Details Recorded Time 46991 Substance with sulfonami de structure and antibacte rial mechanism of action (substanc e) medicatio n itching mild low 07/23/2024 55357 8003 SNOMED Heidi Howell RN [facility] 5 09:59:23 Medications Name Sig Start Date Stop Date Status Note LastModified by Organization Details LastModified Time cyclobenzap rine 10 mg tablet active Not Available Not Available Not Available amoxicillin 500 mg capsule active Not Available Not Available Not Available lamotrigine 150 mg tablet active Not Available Not Available Not Available levothyroxi ne 137 mcg tablet active Not Available Not Available Not Available lamotrigine 200 mg tablet active Not Available Not Available Not Available trazodone 50 mg tablet TAKE 1 TABLET BY MOUTH TWICE DAILY active Not Available Not Available No t Available azithromyci n 250 mg tablet active Not Available Not Available Not Available ibuprofen 800 mg tablet active Not Available Not Available Not Available alprazolam 1 mg tablet TK 1 T PO QID PRN active Not Available Not Available No t Available fluconazole 150 mg tablet active Not Available Not Available Not Available hydrocodone 5 mg-acetamin ophen 325 mg tablet TAKE 1 TABLET BY MOUTH TWICE DAILY NEEDED active Not Available Not Available No t Available phenazopyri dine 200 mg tablet active Not Available Not Available Not Available prednisone 20 mg tablet active Not Available Not Available Not Available sertraline 100 mg tablet TK 1 T PO D. active Not Available Not Available No t Available clindamycin HCl 150 mg capsule active Not Available Not Available Not Available meclizine 12.5 mg tablet active Not Available Not Available Not Available prochlorper azine maleate 10 mg tablet active Not Available Not Available No t Available acyclovir 400 mg tablet TAKE 1 TABLET BY MOUTH EVERY DAY active Not Available Not Available No t Available ciprofloxac in 500 mg tablet active Not Available Not Available Not Available acyclovir 800 mg tablet TAKE 1 TABLET BY MOUTH TWICE DAILY active Not Available Not Available No t Available Gentak 0.3 % (3 mg/gram) eye ointment active Not Available Not Available Not Available levothyroxi ne 25 mcg tablet TK 1 T PO QD active Not Available Not Available No t Available levothyroxi ne 75 mcg tablet active Not Available Not Available Not Available citalopram 20 mg tablet active Not Available Not Available Not Available DOK 100 mg capsule TAKE 1 CAPSULE BY MOUTH TWICE DAILY NEEDED FOR 30 DAYS active Not Available Not Available No t Available trazodone 100 mg tablet TAKE 1 TABLET BY MOUTH ONCE DAILY NEEDED FOR 90 DAYS active Not Available Not Available No t Available meclizine 25 mg tablet TAKE 1 TABLET BY MOUTH THREE TIMES DAILY active Not Available Not Available No t Available phenazopyri dine 100 mg tablet active Not Available Not Available Not Available baclofen 10 mg tablet TK 1 TO 2 TS PO BID PRN active Not Available Not Available No t Available benzonatate 100 mg capsule active Not Available Not Available Not Available levothyroxi ne 50 mcg tablet TAKE 1 TABLET BY MOUTH ONCE DAILY ON AN EMPTY STOMACH 09/17 completed Not Available Not Available Not Available hydrocodone 7.5 mg-acetamin ophen 325 mg tablet TAKE 1 TABLET BY MOUTH TWICE DAILY NEEDED FOR PAIN active Not Available Not Available No t Available pantoprazol e 40 mg tablet,sunshine yed release active Not Available Not Available Not Available cyanocobala min (vit B-12) 1,000 mcg/mL injection solution INJECT 1 ML INTRAMUSC ULARLY ONCE A WEEK active Not Available Not Available No t Available ferrous sulfate 325 mg (65 mg iron) tablet active Not Available Not Available Not Available levothyroxi ne 125 mcg tablet active Not Available Not Available Not Available nitrofurant oin macrocrysta l 100 mg capsule active Not Available Not Available Not Available ranitidine 150 mg tablet active Not Available Not Available Not Available levothyroxi ne 150 mcg tablet active Not Available Not Available Not Available clotrimazol e 1 % topical solution APPLY 4 DROPS TO THE AFFECTED EAR EXTERNALL Y TWICE DAILY FOR 10 DAYS 09/17 completed Not Available Not Available Not Available BD Luer-Mulu Syringe 3 mL 25 gauge x 1 USE TO INJECT B12 WEEKLY AND TESTOSTER ONE AND ESTRADIOL EVERY 3-4 WEEKS active Not Available Not Available No t Available omeprazole 20 mg capsule,del ayed release TAKE 1 CAPSULE BY MOUTH ONCE DAILY active Not Available Not Available No t Available folic acid 1 mg tablet TAKE 1 TABLET BY MOUTH DAILY active Not Available Not Available No t Available acyclovir 200 mg capsule active Not Available Not Available Not Available gabapentin 100 mg capsule TAKE 1 CAPSULE BY MOUTH THREE TIMES DAILY NEEDED FOR PAIN 09/17 completed Not Available Not Available Not Available ergocalcife rol (vitamin D2) 1,250 mcg (50,000 unit) capsule TAKE 1 CAPSULE BY MOUTH WEEKLY active Not Available Not Available No t Available Cheratussin AC 10 mg-100 mg/5 mL oral liquid active Not Available Not Available Not Available testosteron e cypionate 200 mg/mL intramuscul ar oil INJECT 0.5ML INTRAMUSC ULARLY EVERY 4 WEEKS active Not Available Not Available No t Available methylpredn isolone 4 mg tablets in a dose pack active Not Available Not Available Not Available dextroamphe tamine-amph etamine ER 30 mg 24hr capsule,ext end release TAKE 1 [...] 500 mg tablet,exte nded release 24 hr active Not Available Not Available Not Available sertraline 50 mg tablet active Not Available Not Available Not Available Depo-Estrad iol 5 mg/mL intramuscul ar oil INJECT 0.5 ML (CC) INTRAMUSC ULARLY ONCE EVERY 2 TO 3 WEEKS active Not Available Not Available No t Available lamotrigine 100 mg tablet TK 1 T PO QHS active Not Available Not Available No t Available ipratropium bromide 21 mcg (0.03 %) nasal spray active Not Available Not Available Not Available spironolact one 50 mg tablet TAKE 1 TABLET BY MOUTH ONCE DAILY IN THE MORNING 09/17 completed Not Available Not Available Not Available progesteron e micronized 100 mg capsule TAKE 1 CAPSULE BY MOUTH ONCE DAILY IN THE EVENING active Not Available Not Available No t Available amoxicillin 875 mg-potassiu m clavulanate 125 mg tablet TAKE 1 TABLET BY MOUTH EVERY 12 HOURS FOR 7 DAYS 09/17 completed Not Available Not Available Not Available Ventolin HFA 90 mcg/actuati on aerosol inhaler active Not Available Not Available Not Available tobramycin 0.3 %-dexametha sone 0.1 % eye drops,suspe nsion active Not Available Not Available Not Available Amphetamine Salt Combo 30 mg tablet TK 1 T PO BID active Not Available Not Available No t Available dextroamphe tamine-amph etamine ER 15 mg 24hr capsule,ext end release TAKE 1 CAPSULE BY MOUTH ONCE DAILY IN THE MORNING active Not Available Not Available No t Available aripiprazol e 5 mg tablet active Not Available Not Available Not Available ciprofloxac in 0.3 %-dexametha sone 0.1 % ear drops,suspe nsion INSTILL 4 DROPS INTO RIGHT EAR TWICE DAILY FOR 7 DAYS active Not Available Not Available No t Available rosuvastati n 20 mg tablet TAKE 1 TABLET BY MOUTH ONCE DAILY 09/17 completed Not Available Not Available Not Available nitrofurant oin monohydrate /macrocryst als 100 mg capsule TAKE 1 CAPSULE BY MOUTH EVERY 12 HOURS WITH FOOD FOR 7 DAYS active Not Available Not Available No t Available duloxetine 30 mg capsule,del ayed release active Not Available Not Available Not Available duloxetine 60 mg capsule,del ayed release active Not Available Not Available Not Available solifenacin 10 mg tablet Take 1 tablet every day by oral route. 09/17 completed Not Available Not Available Not Available Lyrica 50 mg capsule active Not Available Not Available N ot Available Lyrica 100 mg capsule active Not Available Not Available N ot Available Lyrica 150 mg capsule active Not Available Not Available N ot Available aripiprazol e 2 mg tablet active Not Available Not Available Not Available diclofenac 1 % topical gel active Not Available Not Available Not Available Toviaz 8 mg tablet,exte nded release Take 1 tablet every day by oral route. active Not Available Not Available No t Available Linzess 145 mcg capsule active Not Available Not Available Not Available Linzess 290 mcg capsule Take 1 capsule every day by oral route for 90 days. 2024 active Not Available Not Available Not Avai lable naloxone 4 mg/actuatio n nasal spray CALL 911. SPR CONTENTS OF ONE SPRAYER (0.1ML) INTO ONE NOSTRIL. REPEAT IN 2-3 MIN IF SYMPTOMS OF OPIOID EMERGENCY PERSIST, ALTERNATE NOSTRILS active Not Available Not Available No t Available Caplyta 42 mg capsule TAKE 1 CAPSULE BY MOUTH ONCE DAILY active Not Available Not Available No t Available Ozempic 2 mg/dose (8 mg/3 mL) subcutaneou s pen injector INJECT 2 MG SUBCUTANE OUSLY ONCE A WEEK active Not Available Not Available No t Available Caplyta 21 mg capsule TAKE 1 CAPSULE BY MOUTH ONCE DAILY FOR 30 DAYS active Not Available Not Available No t Available Ozempic 0.25 mg or 0.5 mg (2 mg/3 mL) subcutaneou s pen injector INJECT 1/2 (ONE-HALF ) MG SUBCUTANE OUSLY ONCE A WEEK active Not Available Not Available No t Available Vitals Date Recorded Body height Body mass index (BMI) Body weight Body temperature Heart rate Oxygen saturation Oxygen saturation in Arterial blood by Pulse oximetry Systolic blood pressure Diastolic blood pressure Provider Name and Address Organization Details Last Updated DateTime 5 162.56 cm 25.6 kg/m2 98373.6 1 g 97.9 [degF] 102 /min 97 % 97 % 120 mm[Hg] 70 mm[Hg] Heidi Howell RN [facility] 5 09:58:46 Date Recorded Body height Body mass index (BMI) Body weight Body temperature Oxygen saturation Oxygen saturation in Arterial blood by Pulse oximetry Heart rate Systolic blood pressure Diastolic blood pressure Provider Name and Address Organization Details Last Updated DateTime 5 162.56 cm 26.4 kg/m2 43715.2 2 g 98.8 [degF] 100 % 100 % 78 /min 118 mm[Hg] 78 mm[Hg] CHUNG Marroquin [facility] 09:21:33 Social History Question Answer Notes LastModified by [employer] Details LastModified Time Tobacco Smoking Status Former Smoker Heidi Howell RN [facility], [facility] 07/23/2024 10:11:07 What Is Your Level Of Caffeine Consumption? Occasional 2 Times A Month Drinks Pepsi [email or web address] Information not available 07/23/2024 When Did You Quit Smoking? 16+yearssincel astcigarette Quit 2000 [email or web address] Information not available 07/23/2024 What Is Your Current Pack Years? 10packyears [email or web address] Information not available 07/23/2024 At What Age Did You Start Smoking Tobacco? 27 Information not available 07/23/2024 How Much Tobacco Do You Smoke? 0.5 PPD [email or web address] Information not available 07/23/2024 How Many Years Have You Smoked Tobacco? 3 [email or web address] Information not available 07/23/2024 How Many Years Have You Used E-cigarettes Or Vape? 10 [email or web address] Information not available 07/23/2024 Sex: Unknown Functional Status Question Answer Note LastModified by Organizat ion Details LastModified Time Do you use any illicit or recreational drugs? No [email or web address] Information not available 07/23/2024 Do you or have you ever used any other forms of tobacco or nicotine? Yes [email or web address] Information not available 07/23/2024 What is your level of alcohol consumption? Occasional [email or web address] Information not available 07/23/2024 Do you or have you ever used smokeless tobacco? Never used smokeless tobacco [email or web address] Information not available 07/23/2024 Do you or have you ever used e-cigarettes or vape? Current user of electronic cigarettes [email or web address] Information not available 07/23/2024 Mental Status None recorded. Family History Relationship Description Onset Age of this Age Resolved Age Notes LastModified by Organization Details LastModified Time Father Parkinson's disease 45 78 Not available 07/23 10:06:24 Mother Familial idiopathic pulmonary fibrosis 66 66 Not available 07/23 10:07:19 Sister Familial idiopathic pulmonary fibrosis 52 52 [email or web address] Not available 07/23 10:07:19 Medical History No medical history recorded. Gynecological HistoryNo gynecological history recorded. Obstetrics History GPAL:G 0 P 0 0 0 0 Past Encounters Encounter ID Performer Location Encounter Start Date Encounter Closed Date Diagnosis/Indication Diagnosis SNOMED-CT Code Diagnosis ICD10 Code Diagnosis Note [id number] Pedro Flores MD [address] [address] 07/23/2024 09:48:55 07/23/2024 11:33:41 Irritable bowel syndrome characterized by constipation 426238733 K58.1 Screening mammography 24 791286 Z12.31 Adult heal th examination 645264450 Z00.00 [id number] Pedro Flores MD [address] [address] 09/17/2024 09:09:16 09/24/2024 08:37:31 Pain of truncal structure 693894826 N30.10 Herpes simplex 37291131 B00.9 Screening mammography 24 975086 Z12.31 Maturity o nset diabetes of the young, type 2 309018235 E13.9 Diabetes mellitus 747258 09 E11.9 Chronic pr imary bladder pain syndrome 0888482776 7104 N30.10 Health Concerns Section Related Observation LastModified by Organization Detai ls LastModified Time None Recorded Concern Status LastModified by Organization Details LastModified Time None Recorded Advance Directives Directive None Recorded Payers Insurance Date Sequence Insurance Name Policy Number Policy Barth Covered Member ID Barth Member ID Guarantor Name 07/23/2024 1 [id number] Hope Ferrell [id number] Hope Ferrell 07/02/2024 1 [facility] Enrique Ferrell [id number] Hope Ferrell 09/24/2024 1 [employer] [id number] Hope Ferrell [id number] Hope Ferrell 09/24/2024 2 [employer] [id number] Hope Ferrell [id number] Hope Ferrell Notes Date Note Type Note Provider Name and Address Organization Details Recorded Time 07/23/2024 text/html hands an arms nu mb at night. A1c is 5.1 , was dagnosed as diabetic to receive the ozempic . has a year's supply DEBO Tripathi [address], [place], [address], [facility] 07/31/2024 12:39:48 09/17/2024 text/html needs a referral to a new urologist for her interstitial cystitis . is in senior care , him DEBO Tripathi [address], [facility] [address], [place], [address], [facility] 09/21/2024 10:10:27 OBGyn Episode No OBEpisode recorded.
--- OUTSIDE RECORDS SUMMARY | 2024-11-09 16:22 | XMS_ITS | Referral Summary ---
Author Organization [facility] Address [facility] [place] [address] Care Team Providers Care Retail Client Solutions Analyst Name Role Phone Ele Green MD Primary Care Provider [phone] Allergies Active Allergy Reactions Criticality Noted Date [...] mouth daily 30 tablet 11 07/01/19 24 Active Caplyta 21 mg capsule 06/30/19 24 [...] sinusitis 01/22/2017 06/19/2023 Chronic cough 06/26/2023 Immunizations Immunization Administration Dates Next Due Influenza, Quadrivalent, Split, [...] on file Legal Sex Female 7:02 AM SUPPORT DIRECTOR Gender Identity Not on file Sexual Orientation Not on file Last Filed Vital Signs Vital Sign Reading Time Taken Comments Blood Pressure 101/61 09/13/2022 12:42 PM CDT Pulse 98 09/13/2022 12:42 PM CDT Temperature 36.5 C (97.7 F) 09/13/2022 12:42 PM CDT Respiratory Rate 18 07/01/2023 9:00 AM SUPPORT DIRECTOR Oxygen Saturation 96% 09/13/2022 12:42 PM CDT room air Inhaled Oxygen Concentration - - Weight 83.5 kg (184 lb) 07/01/2023 9:00 AM SUPPORT DIRECTOR Height 162.6 cm (5' 4) 07/01/2023 9:00 AM SUPPORT DIRECTOR Body Mass Index 31.58 07/01/2023 9:00 AM SUPPORT DIRECTOR Plan of Treatment Not on file Insurance [facility] H[facility]PP[facility] Address: [place] [address] [facility] H[facility] Address: [place] [address] Care Teams Retail Client Solutions Analyst Relationship Specialty Start Date End Date Ele Green MD PCP - General Emergency Medicine 07/11/22
--- OUTSIDE RECORDS SUMMARY | 2024-11-09 16:22 | XMS_ITS | Clinical Summary ---
Author Organization [facility] Address On license [place] [address] Care Team Providers Care Tool Crib Attendant Name Role Phone Ele Green MD Primary [...] idiopathic constipation 01/08/2019 Prolapsed cervical intervertebral disc Elevated hemoglobin A1c 08/03/2020 Covid-19 03/11/2020 Urinary [...] on file Legal Sex Female 7:02 AM KEY OPERATOR Gender Identity Not on file Sexual Orientation Not on file Obstetrics History Last Filed Vital Signs Vital Sign Reading Time Taken Comments Blood Pressure 101/61 09/13/2022 12:42 PM CDT Pulse 98 09/13/2022 12:42 PM CDT Temperature 36.5 C (97.7 F) 09/13/2022 12:42 PM CDT Respiratory Rate 18 07/01/2023 9:00 AM KEY OPERATOR Oxygen Saturation 96% 09/13/2022 12:42 PM CDT room air Inhaled Oxygen Concentration - - Weight 83.5 kg (184 lb) 07/01/2023 9:00 AM KEY OPERATOR Height 162.6 cm (5' 4) 07/01/2023 9:00 AM KEY OPERATOR Body Mass Index 31.58 07/01/2023 9:00 AM KEY OPERATOR Plan of Treatment Health Maintenance Due Date Last Done Comments Breast Cancer Screening-Mammogram 1970 Cervical Cancer Screening 1970 Colon Cancer Screening-Colonoscopy 1970 Depression Screening 1970 Hepatitis C Screening 1970 DTaP/Tdap/Td Vaccine (1 - Tdap) 1981 Hepatitis B Screening 1988 Regular Well Visit/Exam 18-64 1988 Pneumococcal vaccine <65 (1 of 2 - PCV) 1989 Zoster Vaccine (1 of 2) 2020 Covid-19 Vaccine (2 - season) 01/11/202407/2020 Influenza Vaccine (Season Ended) 2025 01/28/2017, 01/23/2016, 02/07/2015 Insurance [facility] Member Subscriber Plan / Payer (Ef fective 2022-Present) Name:Hope Barnett Relation to Subscriber:Spouse Name:ENRIQUE BARNETT Date of :1965 (Home) Address: [address] [place] [address] Payer ID:[id number] (NAIC) Type:[facility] H[facility]/PPO Address: [place] [phone] Care Teams Tool Crib Attendant Relationship Specialty Start Date End Date Ele Green MD PCP - General Emergency Medicine 07/11/22
--- OUTSIDE RECORDS SUMMARY | 2024-11-09 16:22 | XMS_ITS | Data Portability ---
Author Organization [facility] Address [address] [place] [address] Assessment Encounter Date Assessment Date Assessment LastModified by Organization Details LastModified Time 02/12/2023 02/12/2023 Advised patient to avoid using cocaine. [email or web address] Not available 02/12/2023 15:20:42 Plan of Treatment Reminders Order Date Submit Date Provider Last Modified By Organization Details Last Modified Time Details Appointments None recorded. Lab TSH, ultra-sensi tive, serum 2022 023 [facility], [address] [place] [address], [address], [place], [address], 3 06:17:35 HbA1c (hemoglobin A1c), blood 2022 023 [facility], [address] [place] [address], [address], [place], [address], 3 06:17:36 HbA1c (hemoglobin A1c), blood 2022 023 [facility], [address] [place] [address], [address], [place], [address], 3 11:16:09 TSH, ultra-sensi tive, serum 2022 023 [facility], [address] [place] [address], [address], [place], [address], 3 11:16:08 bacterial vaginosis + vaginitis panel, vaginal [address] [facility], [address] [facility], [address], [place], [address], 3 11:16:07 Referral None recorded. Procedures None recorded. Surgeries None recorded. Imaging None recorded. Medication Orders Ozempic 0.25 mg or 0.5 mg (2 mg/3 mL) subcutaneou s pen injector 2023 024 [facility], [address] [place], [address], 4 12:04:50 trazodone 50 mg tablet 2023 024 [facility], [address] [place], [address], 4 12:04:52 omeprazole 20 mg capsule,del ayed release 2023 024 [facility], [address] [place], [address], 4 12:04:52 rosuvastati n 20 mg tablet 2023 024 [facility], [address] [place], [address], 4 12:04:50 albuterol sulfate HFA 90 mcg/actuati on aerosol inhaler 2023 024 [facility], [address] [place], [address], 4 12:04:51 Ozempic 0.25 mg or 0.5 mg (2 mg/1.5 mL) subcutaneou s pen injector 2022 023 [facility], [address] [place], [address], 3 15:21:07 metronidazo le 500 mg tablet 2022 023 [facility], [address] [place], [address], 3 13:04:34 Crestor 20 mg tablet 2022 023 [facility], [address] [place], [address], 3 13:04:31 amoxicillin 875 mg tablet 2022 023 [facility], [address] [place], [address], 15:04:45 Patient TargetsNo targets recorded. Patient Instructions Encounter Date Encounter Id Patient Instructions Last Modified By Organization Details Last Modified Time 02/12/2023 [id number] A healthy lifestyle: care [facility] 02/12/2023 15:27:05 Reason for Referral None Reported. Results Created Date Observation Date Name Description Value Unit Range Abnormal Flag Note LastModifiedBy Organization Detail LastModifiedTime 01/01/2012/31/2022 LIPID PANEL cholesterol, total 264 mg/dL 100-19 9 above high normal Not Available [facility] Department [address] [place], [address], 01/01/2023 06:17:29 01/01/2012/31/2022 LIPID PANEL triglyceride s 90 mg/dL 0-149 Not Available [facility] Department [address] [place], [address], 01/01/2023 06:17:29 01/01/2012/31/2022 LIPID PANEL HDL cholesterol 59 mg/dL 40-999 Not Available [facility] Department [address] [place], [address], 01/01/2023 06:17:29 01/01/20 23 12/31/2022 LIPID PANEL VLDL cholesterol estella 18 mg/dL 5-40 Not Available [facility] Department [address] [place], [address], 01/01/2023 06:17:29 01/01/20 23 12/31/2022 LIPID PANEL LDL chol calc (nih) 201 mg/dL 0-99 above high normal Not Available [facility] Department [address] [place], [address], 01/01/2023 06:17:29 01/01/20 23 12/31/2022 COMP. METAB OLIC PANEL (14) glucose 125 mg/dL 70-99 above high normal Not Available [facility] Department [address] [place] [address], [address], 01/01/2023 06:17:30 01/01/20 23 12/31/2022 COMP. METAB OLIC PANEL (14) BUN 13 mg/dL 6-24 Not Available [facility] Department [address] [place] [address], [address], 01/01/2023 06:17:30 01/01/20 23 12/31/2022 COMP. METAB OLIC PANEL (14) creatinine 0.71 mg/dL 0.76-1 .27 below low normal Not Available [facility] Department [address] [place], [address], 01/01/2023 06:17:30 01/01/20 23 12/31/2022 COMP. METAB OLIC PANEL (14) eGFR 102 >=60 Units for eGFR value s are mL/mi n/1.7 3 The eGFR Calcu latio n has not been valid ated for patie nts under the age of 18. If test resul ts are displ ayed for a patie nt under the age of 18, disre jackie that value . Not Available [facility] Department [address] [place], [address], 01/01/2023 06:17:30 01/01/20 23 12/31/2022 COMP. METAB OLIC PANEL (14) BUN/creatini ne ratio 28 01- Not Available [facility] Department [address] [place], [address], 01/01/2023 06:17:30 01/01/20 23 12/31/2022 COMP. METAB OLIC PANEL (14) sodium 140 mmol/ L 134-14 4 Not Available [facility] Department [address] [place], [address], 01/01/2023 06:17:30 01/01/20 23 12/31/2022 COMP. METAB OLIC PANEL (14) potassium 4.3 mmol/ L 3.5-5. 2 Not Available [facility] Department [address] [place], [address], 01/01/2023 06:17:30 01/01/20 23 12/31/2022 COMP. METAB OLIC PANEL (14) chloride 103 mmol/ L 96-106 Not Available [facility] Department [address] [place], [address], 01/01/2023 06:17:30 01/01/20 23 12/31/2022 COMP. METAB OLIC PANEL (14) carbon dioxide, total 21 mmol/ L 20-29 Not Available [facility] Department [address] [place], [address], 01/01/2023 06:17:30 01/01/20 23 12/31/2022 COMP. METAB OLIC PANEL (14) calcium 9.4 mg/dL 8.7-10 .2 Not Available [facility] Department [address] [place], [address], 01/01/2023 06:17:30 01/01/20 23 12/31/2022 COMP. METAB OLIC PANEL (14) protein, total 7.5 g/dL 6.0-8. 5 Not Available [facility] Department [address] [place], [address], 01/01/2023 06:17:30 01/01/20 23 12/31/2022 COMP. METAB OLIC PANEL (14) albumin 4.6 g/dL 3.8-4. 9 Not Available [facility] Department [address] [place], [address], 01/01/2023 06:17:30 01/01/20 23 12/31/2022 COMP. METAB OLIC PANEL (14) globulin, total 2.9 g/dL 1.5-4. 5 Not Available [facility] Department [address] [place], [address], 01/01/2023 06:17:30 01/01/20 23 12/31/2022 COMP. METAB OLIC PANEL (14) A/G ratio 2.0 1.2-2. 2 Not Available [facility] Department [address] [place] [address], [address], 01/01/2023 06:17:30 01/01/20 23 12/31/2022 COMP. METAB OLIC PANEL (14) bilirubin, total 0.4 mg/dL 0.0-1. 2 Not Available [facility] Department [address] [place] [address], [address], 01/01/2023 06:17:30 01/01/20 23 12/31/2022 COMP. METAB OLIC PANEL (14) alkaline phosphatase 89 IU/L 44-121 Not Available [facility] Department [address] [place] [address], [address], 01/01/2023 06:17:30 01/01/20 23 12/31/2022 COMP. METAB OLIC PANEL (14) AST (SGOT) 18 IU/L 0-40 Not Available [facility] Department [address] [place] [address], [address], 01/01/2023 06:17:30 01/01/20 23 12/31/2022 COMP. METAB OLIC PANEL (14) ALT (SGPT) 20 IU/L 0-32 Not Available [facility] Department [address] [place], [address], 01/01/2023 06:17:30 01/01/2012/31/2022 CBC, PLATE LET, NO DIFFE RENTI AL WBC 8.5 x10e3 /uL 3.4-10 .8 Not Available [facility] Department [address] [place], [address], 01/01/2023 06:17:31 01/01/2012/31/2022 CBC, PLATE LET, NO DIFFE RENTI AL RBC 4.35 x10e6 /uL 3.77-5 .28 Not Available [facility] Department [address] [place], [address], 01/01/2023 06:17:31 01/01/2012/31/2022 CBC, PLATE LET, NO DIFFE RENTI AL hemoglobin 13.0 g/dL 11.1-1 5.9 Not Available [facility] Department [address] [place], [address], 01/01/2023 06:17:31 01/01/2012/31/2022 CBC, PLATE LET, NO DIFFE RENTI AL hematocrit 41.3 % 34.0-4 6.6 Not Available [facility] Department [address] [place], [address], 01/01/2023 06:17:31 01/01/2012/31/2022 CBC, PLATE LET, NO DIFFE RENTI AL MCV 95 fL 79-97 Not Available [facility] Department [address] [place], [address], 01/01/2023 06:17:31 01/01/2012/31/2022 CBC, PLATE LET, NO DIFFE RENTI AL MCH 29.9 pg 26.6-3 3.0 Not Available [facility] Department [address] [place], [address], 01/01/2023 06:17:31 01/01/2012/31/2022 CBC, PLATE LET, NO DIFFE RENTI AL MCHC 31.5 g/dL 31.5-3 5.7 Not Available [facility] Department [address] [place], [address], 01/01/2023 06:17:31 01/01/2012/31/2022 CBC, PLATE LET, NO DIFFE RENTI AL RDW 13.0 % 11.5-1 4.5 Not Available [facility] Department [address] [place], [address], 01/01/2023 06:17:31 01/01/2012/31/2022 CBC, PLATE LET, NO DIFFE RENTI AL platelets 441 x10e3 /uL 150-45 0 Not Available [facility] Department [address] [place], [address], 01/01/2023 06:17:31 01/01/2012/31/2022 CBC, PLATE LET, NO DIFFE RENTI AL NRBC 0 % 0-0 Not Available [facility] Department [address] [place], [address], 01/01/2023 06:17:31 01/01/2001/01/2023 TSH RFX ON ABNOR MAL TO FREE T4 TSH 4.670 uIU/m L 0.450- 4.500 above high normal Not Available [facility] ([facility]) [address], [place], [address], 01/01/2023 08:33:38 01/01/2001/01/2023 T4F T4,free (direct) 1.30 NG/dL 0.82-1 .77 Not Available [facility] ([facility]) [address], [place], [address], 01/01/2023 08:33:39 01/21/2001/23/2023 NUSWA B BV KEN+C AND6+ CT/GC /T... atopobium vaginae Low - 0 score Not Available [facility] ([facility]) [address], [place], [address], 01/24/2023 11:16:07 01/21/20 23 01/23/2023 NUSWA B BV KEN+C AND6+ CT/GC /T... bvab 2 Low - 0 score Not Available [facility] ([facility]) [address], [place], [address], 01/24/2023 11:16:07 01/21/20 23 01/23/2023 NUA B [...] Drug Admin istra tion. Not Available [facility] ([facility]) [address], [place], [address], 01/24/2023 11:16:07 01/21/20 23 01/23/2023 NUSWA B BV KEN+C AND6+ CT/GC /T... christopher albicans, KEN Negati ve negati ve Not Available [facility] ([facility]) [address], [place], [address], 01/24/2023 11:16:07 01/21/20 23 01/23/2023 NUSWA B BV KEN+C AND6+ CT/GC /T... christopher glabrata, KEN Negati ve negati ve Not Available [facility] ([facility]) [address], [place], [address], 01/24/2023 11:16:07 01/21/20 23 01/23/2023 NUSWA B BV KEN+C AND6+ CT/GC /T... trich vag by KEN Negati ve negati ve Not Available [facility] ([facility]) [address], [place], [address], 01/24/2023 11:16:07 01/21/20 23 01/23/2023 NUSWA B BV KEN+C AND6+ CT/GC /T... chlamydia trachomatis, KEN Negati ve negati ve Not Available [facility] ([facility]) [address] [place], [address], 01/24/2023 11:16:07 01/21/20 23 01/23/2023 NUSWA B BV KEN+C AND6+ CT/GC /T... neisseria gonorrhoeae, KEN Negati ve negati ve Not Available [facility] ([facility]) [address] [place], [address], 01/24/2023 11:16:07 01/21/20 23 01/23/2023 NUSWA B BV KEN+C AND6+ CT/GC /T... hsv 1 KEN Negati ve negati ve Not Available [facility] ([facility]) [address] [place], [address], 01/24/2023 11:16:07 01/21/20 23 01/23/2023 NUSWA B BV KEN+C AND6+ CT/GC /T... hsv 2 KEN Negati ve negati ve Not Available [facility] ([facility]) [address] [place], [address], 01/24/2023 11:16:07 01/21/20 23 01/24/2023 NUSWA B BV KEN+C AND6+ CT/GC /T... C parapsilosis /tropicalis Negati ve negati ve This assay does not diffe renti ate C. tropi calis and C. parap rosaline is. Not Available [facility] ([facility]) [address], [place], [address], 01/24/2023 11:16:07 01/21/20 23 01/24/2023 NUSWA B BV KEN+C AND6+ CT/GC /T... christopher lusitaniae, KEN Negati ve negati ve Not Available [facility] ([facility]) [address], [place], [address], 01/24/2023 11:16:07 01/21/20 23 01/24/2023 NUSWA B BV KEN+C AND6+ CT/GC /T... christopher krusei, KEN Negati ve negati ve Not Available [facility] ([facility]) [address], [place], [address], 01/24/2023 11:16:07 01/21/20 23 01/21/2023 TSH RFX ON ABNOR MAL TO FREE T4 TSH - uIU/m L Test not perfo rmed. No speci men recei tiarra. Not Available [facility] ([facility]) [address], [place], [address], 01/24/2023 11:16:08 01/21/20 23 01/21/2023 HEMOG LOBIN A1C hemoglobin A1C - % Test not perfo rmed. No speci men recei tiarra. Predi abete s: 5.7 - 6.4 Diabe geo: >6.4 Glyce taylor contr ol for adult s with diabe geo: <7.0 Not Available [facility] ([facility]) [address] [place], [address], 01/24/2023 11:16:09 01/21/20 23 01/21/2023 SPECI MEN STATU S REPOR T specimen status report TNP Test not perfo rmed. No speci men recei tiarra. TEST: [id number] Hemog lobin A1c 20406 9 TSH Rfx on Abnor mal to Free T4 Not Available [facility] ([facility]) [address], [place], [address], 01/24/2023 11:16:07 02/04/20 23 02/04/2023 TSH RFX ON ABNOR MAL TO FREE T4 TSH 4.440 uIU/m L 0.450- 4.500 Not Available [facility] ([facility]) [address], [place], [address], 02/04/2023 06:17:35 02/04/20 23 02/04/2023 HEMOG LOBIN A1C hemoglobin A1C 5.9 % 4.8-5. 6 above high normal Predi abete s: 5.7 - 6.4 Diabe geo: >6.4 Glyce taylor contr ol for adult s with diabe geo: <7.0 Not Available [facility] ([facility]) [address], [place], [address], 02/04/2023 06:17:36 05/15/19 24 05/19/2023 Skin Patho logy biops y repor t pathology report.secti on heading Dermat opatho logy Report Case: [id number] Author izing Provid er: Jim Westbrook MD [facility] rasheed: 2023 12:00 AM Orderi ng Locati on: [facility] Receiv ed: 2023 12:53 PM Pathol ogist: Angie Masters MD Specim en: Skin, left upper chest Case Repor t Bally topat holog y Repor t Case: [id number] Autho rizin g Provi nikhil: Jim Serrano MD Colle cted: 05/15 12:00 AM Order ing Locat ion: [facility] Recei tiarra: 05/16 12:53 PM Patho logis t: Suzette Masters in [place] gerard MD Speci men: Skin, left upper chest 05/19 2:48 PM [facility] Not Available Not Available 07/09/2024 03:33:17 05/15/19 24 05/19/2023 Skin Patho logy biops y repor t pathology report final diagnosis narrative Specim en A. SKIN, left upper chest: HYPERP LASTIC (HYPER TROPHI C) ACTINI C KERATO SIS WITH ACANTH OLYTIC FEATUR ES (L57.0 ) (see micros copic descri ption) Final Diagn osis Speci men A. SKIN, left upper chest : HYPER PLAST IC (HYPE RTROP HIC) ACTIN IC KERAT OSIS WITH ACANT HOLYT IC FEATU RES (L57. 0) (see micro scopi c descr iptio n) 05/19 2:48 PM [facility] Elect alisha chiacs rajeev d by Suzette Masters in [place] gerard MD on 024 at 2:48 PM Not Available Not Available 07/09/2024 03:33:17 05/15/19 24 05/19/2023 Skin Patho logy biops y repor t pathology report relevant history narrative AK vs BCCA. Path#[id number] Clini estella Histo ry AK vs BCCA. Path# [id number] 05/19 2:48 PM [facility] Not Available Not Available 07/09/2024 03:33:17 05/15/19 24 05/19/2023 Skin Patho logy biops y repor t pathology report gross observation narrative Specim en A: Receiv ed is one formal in filled contai ner labele d with the patien t's name and design ated left upper chest. The specim en consis ts of a shave biopsy measur ing 4x2x1 mm. Jar 0. Gross Descr iptio n Speci men A: Recei tiarra is one forma memo fille d conta iner label ed with the patie nt's name and desig nated left upper chest . The speci men consi sts of a shave biops y measu ring 4x2x1 mm. Jar 0. 05/19 2:48 PM [facility] Not Available Not Available 07/09/2024 03:33:17 05/15/19 24 05/19/2023 Skin Patho logy biops y repor t pathology report microscopic observation narrative other stain Specim en A. SKIN, left upper chest: There is hyperk eratos is altern ating with parake ratosi s. There is epider mal hyperp lasia with disord erly matura tion of kerati nocyte s with nuclea r pleomo rphism confin ed to the lower half of the epider mis. Focall y there is a suprab asilar cleft with acanth olytic cells. Additi onal deeper sectio ns were obtain ed and review ed. Micro scopi c Descr iptio n Speci men A. SKIN, left upper chest : There is hyper kerat osis alter natin g with parak erato sis. There is epide rmal hyper plasi a with disor henrry matur ation of kerat inocy geo with nucle ar pleom orphi sm confi kieran to the lower half of the epide rmis. Focal ly there is a supra basil ar cleft with acant holyt ic cells . Addit ional deepe r secti ons were obtai kieran and revie wed. 05/19 2:48 PM [facility] Not Available Not Available 07/09/2024 03:33:17 05/15/19 24 05/19/2023 Skin Patho logy biops y repor t service comment An energy director al and transportation logistics internship al positi ve and negati ve contro ls are approp riate for the histoc hemica l, immuno histoc hemica l and immuno fluore scence stain( s) in this case (if any), except where stated explic itly. The perfor ting charac terist ics of the stain( s) cited in this report were develo ped and its perfor ting charac terist ic determ ined by the Dermat opatho jesse guevara at [facility] car[place], direct ed by Dr. Neeraj Case . These tests need not be, and theref ore are not, approv ed by the [place] Food and Drug Admini strati on. The tests are used for clinic al purpos es. Juniorin g Codes Specim en Charge s [place] [id number] 1 Discl aimer An exter nal and inter nal posit starr and negat starr contr ols are appro priat e for the histo chemi estella, immun ohist ochem ical and immun ofluo resce nce stain (s) in this case (if any), excep t where state d expli citly . The perfo rmanc e edda cteri stics of the stain (s) cited in this repor t were devel oped and its perfo rmanc e edda cteri stic deter mined by the [facility] at [facility] rasheed by Dr. Neeraj Jacobs. These tests need not be, and there fore are not, appro tiarra by the [facility] Food and Drug Admin istra tion. The tests are used for clini estella purpo ses. Brijesh ng Codes Speci [place] [id number] 1 05/19 2:48 PM [facility] Not Available Not Available 07/09/2024 03:33:17 05/15/19 24 05/19/2023 Skin Patho logy biops y repor t embedded images Embed ded Image s 05/19 2:48 PM [facility] Not Available Not Available 07/09/2024 03:33:17 02/01/20 23 01/27/2023 XR, hip, unila teral No observ ation record ed. [facility] [address], [place], [address], 02/03/2023 14:15:15 Result Notes None recorded. Problems Name Problem SNOMED Code Status Onset Date Resolution Date Notes Provider Name and Address Organization Details Recorded Time Acute bronchitis 29179248 Active 2017 Carlos Fuller PA-C Attn: Pancho ponce,[address] [facility], [place], [address], [place] [facility] 8 18:08:56 Attention deficit hyperactivi ty disorder, predominant ly inattentive type 87019800 Active 2017 Carlos Fuller PA-C Attn: Accountin g,[address] [facility], [place], [address], [place] [facility] 8 18:24:48 Pain of left hip joint 3584973150123 00 Active 2017 Carlos Fuller PA-C Attn: Accountin g,[address] [facility], [place], [address], [place] [facility] 8 17:17:31 Fibromyalgi a 989594208 Active 2017 Carlos Fuller PA-C Attn: Accountin g,[address] [facility], [place], [address], [place] [facility] 8 17:38:52 Allergic reaction to insect bite Active 2017 Carlos Fuller PA-C Attn: Accountin g,[address] [facility], [place], [address], [place] [facility] 8 17:43:26 Obese 331897752 Active 2017 Carlos Fuller PA-C Attn: Accountin g,[address] [facility], [place], [address], [place] [facility] 8 22:44:50 Gastroesoph ageal reflux disease 353259575 Active 2017 Carlos Fuller PA-C Attn: Accountin g,[address] [facility], [place], [address], [place] [facility] 8 18:31:17 Dysuria 78735610 Active 2018 Carlos Fuller PA-C Attn: Accountin g,[address] [facility], [place], [address], [place] [facility] 9 17:38:38 Insomnia 642431184 Active 2018 Carlos Fuller PA-C Attn: Accountin g,[address] [facility], [place], [address], [place] [facility] 9 17:23:14 Constipatio n 30244475 Active 2018 Carlos Fuller PA-C Attn: Accountin g,[address] [facility], [place], [address], [place] [facility] 9 12:56:04 Chronic idiopathic constipatio n 82616256 Active 2018 Carlos Fuller PA-C Attn: Accountin g,[address] [facility], [place], [address], [place] [facility] 9 12:57:56 Urinary incontinenc e 882663973 Active 2018 Carlos Fuller PA-C Attn: Accountin g,[address] [facility], [place], [address], [place] [facility] 9 13:00:27 Acute sinusitis 06291249 Active 2018 Carlos Fuller PA-C Attn: Accountin g,[address] [facility], [place], [address], [place] [facility] 9 10:37:28 COVID-19 058553792 Active 2019 Carlos Fuller PA-C Attn: Accountin g,[address] [facility], [place], [address], [place] [facility] 0 12:09:12 Pneumonia caused by SARS-CoV-2 4457494802272 20906 Active 2019 Carlos Fuller PA-C Attn: Accountin g,[address] [facility], [place], [address], [place] [facility] 0 12:10:01 Hyperlipide fermín 99667318 Active 2020 Carlos Fuller PA-C Attn: Accountin g,[address] [facility], [place], [address], [place] [facility] 1 10:51:41 High hemoglobin A1c level 904987573 Active 2020 Carlos Fuller PA-C Attn: Accountin g,[address] [facility], [place], [address], [place] [facility] 1 14:10:38 Nausea 448060844 Active 2021 Carlos Fuller PA-C Attn: Accountin g,[address] [facility], [place], [place], [address] [place] [address], [place] [facility] 2 12:21:19 Prolapsed cervical interverteb ral disc 707377549 Active 2021 Carlos Fuller PA-C Attn: Accountin g,[address] [facility], [place], [address], [place] [facility] 2 16:01:02 Low back pain 391825212 Active Carlos Fuller PA-C Attn: Accountin g,[address] [facility], [place], [address], [place] [facility] 6 14:02:41 Plantar fasciitis 883605333 Active Carlos Fuller PA-C Attn: Accountin g,[address] [facility], [place], [address], [place] [facility] 5 18:51:17 Herpes simplex 74617540 Active Carlos Fuller PA-C Attn: Accountin g,[address] [facility], [place], [place], [address] [place] [address] 2, [place] [facility] 5 12:49:48 Multiple actinic keratoses 974522710 Active Carlos Fuller PA-C Attn: Accountin g,[address] [facility], [place], [address], [place] [facility] 5 11:54:23 Fracture of ankle 25059830 Active Carlos Fuller PA-C Attn: Accountin g,[address] [place], [address], [place] [facility] 5 12:49:48 Hypothyroid ism [id number] Active Carlos Fuller PA-C Attn: Accountin g,[address] [facility], [place], [address], [place] [facility] 6 10:44:46 Acute urinary tract infection [id number] Active Carlos Fuller PA-C Attn: Accountin g,[address] [facility], [place], [address], [place] [facility] 6 17:18:27 Vitamin B12 level below reference range [id number] Active Carlos Fuller PA-C Attn: Accountin g,[address] [facility], [place], [address], [place] [facility] 6 12:43:51 Vitamin D deficiency [id number] Active Carlos Fuller PA-C Attn: Accountin g,[address] [facility], [place], [address], [place] [facility] 6 12:51:01 Anemia 300551148 Active Carlos Fuller PA-C Attn: Accountin g,[address] [facility], [place], [address], [place] [facility] 6 12:51:01 Vaginitis and vulvovagini tis Active Carlos Fuller PA-C Attn: Accountin g,[address] [facility], [place], [address], [place] [facility] 6 17:18:27 Upper respiratory infection 76616521 Active Carlos Fuller PA-C Attn: Accountin g,[address] [facility], [place], [address], [place] [facility] 6 12:00:46 Bronchitis 17985835 Active Carlos Fuller PA-C Attn: Accountin g,[address] [facility], [place], [address], [place] [facility] [place] 14:31:51 Vertigo 621547765 Active Carlos Fuller PA-C Attn: Accountin g,[address] [place], [address], [place] [facility] 6 18:12:53 Allergic rhinitis 59914418 Active 2016 Carlos Fuller PA-C Attn: Pancho ponce,[address] [place], [address], [place] [facility] 7 17:10:30 Screening for disorder Active 2016 Carlos Fuller PA-C Attn: Pancho ponce,[address] [place], [address], [place] [facility] 17:13:58 Depressive disorder 61561113 Active 2016 Carlos Fuller PA-C Attn: Pancho ponce,[address] [place], [address], [place] [facility] 7 16:59:29 Sinusitis 68210634 Active 2016 Carlos Fuller PA-C Attn: Pancho ponce,[address] [place], [address], [place] [facility] 7 16:10:10 Problem Notes None recorded. Medical Equipment None Reported. Allergies Allergen ID Allergen Name Allergen Category Reaction Reaction Severity Criticality Documentation Date Start Date Code Code System Note Provider Name and Address Organization Details Recorded Time 43210 Substance with sulfonami de structure and antibacte rial mechanism of action (substanc e) medicatio n edema moderate Not available 05/20/20162016 06850 8003 SNSHARON Masters LPN null, [place] - [facility] 7 12:51:48 Medications Name Sig Start Date Stop Date [...] Not Available Not Available BD Regular Bevel Minden 18 gauge x 1 active Not Available [...] Not Available Not Available Not Available trazodone 100 mg tablet TAKE 1 TABLET BY MOUTH ONCE DAILY NEEDED FOR 90 DAYS active Not Available Not Available No t Available meclizine 25 mg tablet TAKE 1 TABLET BY MOUTH THREE TIMES DAILY active Not Available Not Available No t Available phenazopyri dine 100 mg tablet 07/02 [...] Not Available Not Available No t Available cephalexin 500 mg capsule TAKE 1 [...] TO INJECT TESTOSTER ONE AND ESTRADIOL EVERY 3-4 WEEKS active Not Available Not Available No t Available omeprazole 20 mg capsule,del ayed release Take 1 capsule by mouth once daily active Not Available Not Available No t Available folic acid 1 mg tablet TAKE 1 TABLET BY MOUTH DAILY active Not Available Not Available No t Available codeine 10 mg-guaifene sin 100 mg/5 [...] MOUTH THREE TIMES DAILY NEEDED FOR PAIN active Not Available Not Available No t Available ergocalcife rol (vitamin D2) 1,250 mcg [...] No t Available dextroamphe tamine-amph etamine ER 30 mg [...] MOUTH EVERY 12 HOURS FOR 7 DAYS active Not Available Not [...] Available Not Available No t Available Caplyta 10.5 mg capsule TAKE 1 [...] Not Available Vitals Date Recorded Body height Provider Name an d Address Organization Details Last Updated DateTime 07/22/2023 165.1 cm Orquidea Lira on, [facility] 07/22/2023 11:24:22 Date Recorded Body height Body mass index (BMI) Body weight Oxygen saturation Oxygen saturation in Arterial blood by Pulse oximetry Heart rate Systolic blood pressure Diastolic blood pressure Provider Name and Address Organization Details Last Updated DateTime 3 165.1 cm 30.5 kg/m2 94115.4 g 98 % 98 % 81 /min 122 mm[Hg] 78 mm[Hg] Therese Jessica MA [facility] 3 12:20:19 Date Recorded Body height Body mass index (BMI) Body weight Oxygen saturation Oxygen saturation in Arterial blood by Pulse oximetry Heart rate Respiratory rate Systolic blood pressure Diastolic blood pressure Provider Name and Address Organization Details Last Updated DateTime 3 165.1 cm 30.1 kg/m2 64467.2 2 g 98 % 98 % 80 /min 18 /min 122 mm[Hg] 78 mm[Hg] Therese Jessica MA [facility] 3 11:47:44 Date Recorded Body height Body mass index (BMI) Body weight Oxygen saturation Oxygen saturation in Arterial blood by Pulse oximetry Heart rate Systolic blood pressure Diastolic blood pressure Provider Name and Address Organization Details Last Updated DateTime 3 165.1 cm 31.8 kg/m2 31036.1 4 g 99 % 99 % 75 /min 130 mm[Hg] 80 mm[Hg] Therese Jessica MA [facility] 3 14:26:08 Date Recorded Body height Body mass index (BMI) Body weight Oxygen saturation Oxygen saturation in Arterial blood by Pulse oximetry Heart rate Systolic blood pressure Diastolic blood pressure Provider Name and Address Organization Details Last Updated DateTime 3 165.1 cm 31.3 kg/m2 48483.3 7 g 99 % 99 % 77 /min 128 mm[Hg] 80 mm[Hg] Therese Jessica MA [place] - [facility] 3 12:05:08 Social History Question Answer Notes LastModified by Organizat ion Details LastModified Time Tobacco Smoking Status Former Smoker Quit in 2001 Caitlin Pugh MA null, [place] - [facility] 02/07/2015 12:24:56 What Was The Date Of Your Most Recent Tobacco Screening? 03/14/2023 [email or web address] Information not available 03/14/2023 How Many Years Have You Smoked Tobacco? 6 [email or web address] Information not available 02/07/2015 Sex: Unknown Functional Status Question Answer Note LastModified by Organizat ion Details LastModified Time Do you or have you ever used any other forms of tobacco or nicotine? Yes Information not available 08/15/2021 Do you or have you ever used e-cigarettes or vape? Current user of electronic cigarettes Information not available 08/15/2021 Mental Status None recorded. Family History Nothing Reported. Medical History Condition Response Anxiety Disorder Y Allergies Y Gynecological HistoryNo gynecological history recorded. 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 no outbreaks Multiple a ctinic keratoses 863974841 Fracture of ankle 80375465 June 2014, no pins. Hypothyroidism 83398897 Screening for disorder 567153740 exposed to 2 guys she dated had hepatitis c , neg x 3 . 4 months ago last test Active or passive immunization 509459433 [id number] MD Leon Ramirez (Adult Med) [address] [place] [address] 0 03/07/2015 11:33:27 03/07/2015 17:55:17 Hypothyroidism 75461225 E03.9 Active or passive immunization 651808467 Z23 Low back pain 595781584 M54.5 Multiple a ctinic keratoses 360441126 L57.0 [id number] ANIA Tripathi (Adult Med) [address] [place] [id number] 0 05/31/2015 11:23:49 05/31/2015 16:06:21 Hypothyroidism 59685344 E03.9 Low back pain 787760432 M54.5 Vitamin B1 2 level below reference range 657574587 R79.9 Vitamin D deficiency 347 43762 E55.9 Anemia 728237380 D64.9 [id number] ANIA Tripathi (Adult Med) [address] [place] [address] 0 07/24/2015 12:09:21 07/24/2015 14:58:46 Anemia 754637952 D64.9 Vitamin B1 2 level below reference range 522774460 R79.9 Hypothyroidism 53458818 E03.9 Low back pain 942372359 M54.5 Vitamin D deficiency 347 11880 E55.9 [id number] ANIA Tripathi (Adult Med) [address] [place] [address]293 0 10/16/2015 12:03:45 10/17/2015 10:01:03 Hypothyroidism 76519729 E03.9 Anemia 233786639 D64.9 Low back pain 950313761 M54.5 Vitamin D deficiency 347 02519 E55.9 [id number] MD Leon Ramirez (Adult Med) [address] [place] [address] 0 03/22/2016 10:08:58 03/22/2016 11:25:13 Low back pain 608499482 M54.5 Vitamin D deficiency 347 45054 E55.9 Hypothyroidism 81920285 E03.9 Anemia 614224345 D64.9 Vitamin B1 2 level below reference range 967354859 R79.9 [id number] MD Leon Ramirez (Adult Med) [address] [place] [address] 0 11/07/2016 16:24:05 11/08/2016 09:31:39 Hypothyroidism 88023358 E03.9 Vitamin D deficiency 347 05614 E55.9 Vitamin B1 2 level below reference range 332595097 R79.9 Low back pain 193273802 M54.5 Allergic rhinitis 349320 04 J30.9 Screening for disorder 493205999 Z13.9 exposed to 2 guys she dated had hepatitis c , neg x 3 . 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 Hypothyroidism 95027556 E03.9 Vitamin D deficiency 347 34139 E55.9 [id number] Shelly Muñiz MD [facility] (Adult Med) [address] [place] [address]78[address] 0 10/10/2017 16:57:01 10/10/2017 17:26:54 Pain of left hip joint 4719454762 09426 M25.417 [id number] [facility] [address] [place] [address]98[address] 0 01/05/2018 16:43:27 01/06/2018 08:28:00 Fibromyalgia 671428768 M79.7 Allergic r eaction to insect bite 848244178 T78.40XA Depressive disorder 3548 9007 F32.89 Vitamin D deficiency 347 30699 E55.9 Obese 385311775 E66.9 Pain of le ft hip joint 2829160142 41939 M25.552 Plantar fasciitis 171462 [address] mora Low back pain 238058575 M54.5 Hypothyroidism 99769077 E03.9 [id number] MD Leon Ramirez (Adult Med) [address] [place] [address]39[address] 0 02/17/2018 18:03:14 02/19/2018 16:00:35 Fibromyalgia 073892210 M79.7 Gastroesop hageal reflux disease 883927559 K21.9 Anemia 713680244 D64.9 Vitamin D deficiency 347 37954 E55.9 Hypothyroidism 50954366 E03.9 Obese 972504672 E66.9 Depressive disorder 3548 9007 F32.89 Low back pain 401876575 M54.5 [id number] [facility] [address] [place] [address] 9[address]48[address] 0 12/15/2018 16:42:56 12/16/2018 09:36:06 Attention deficit hyperactivity disorder, predominantly inattentive type 94900032 F90.0 Depressive disorder 3548 9007 F32.89 Hypothyroidism 86598299 E03.9 Vitamin D deficiency 347 75683 E55.9 Fibromyalgia 568501601 M 79.7 Insomnia 722706545 G47.0 0 Pain of le ft hip joint 1980205880 76671 M25.399 [id number] [facility] [address] [place] [address]95[address] 0 01/08/2019 12:10:38 01/08/2019 14:41:57 Constipation 65848266 K59.00 Chronic id iopathic constipation 12827878 K59.04 Urinary incontinence 165 952173 R32 Depressive disorder 3548 9007 F32.89 Insomnia 045445067 G47.0 0 Gastroesop hageal reflux disease 095119633 K21.9 Vitamin D deficiency 347 81625 E55.9 Hypothyroidism 98127723 E03.9 Allergic rhinitis 324654 04 J30.9 [id number] MD Leon Ramirez (Adult Med) [address] [place] [id number] 0 01/19/2019 11:04:08 01/20/2019 09:47:44 Pain of left hip joint 5667801910 95031 M25.552 Insomnia 909323539 G47.0 0 Gastroesop hageal reflux disease 174166226 K21.9 Depressive disorder 3548 9007 F32.89 Allergic rhinitis 143142 04 J30.9 Anemia 200838606 D64.9 Low back pain 494278818 M54.5 Vitamin D deficiency 347 87824 E55.9 Hypothyroidism 53825247 E03.9 [id number] Shelly [facility] [address] [place] [address] [id number] 0 01/07/2020 16:55:41 01/10/2020 17:55:49 Low back pain 935471657 M54.5 Gastroesop hageal reflux disease 472692705 K21.9 Urinary incontinence 165 813555 R32 Chronic id iopathic constipation 21573752 K59.04 Insomnia 809014973 G47.0 0 Fibromyalgia 799980486 M 79.7 Depressive disorder 3548 9007 F32.89 Allergic rhinitis 547125 04 J30.9 Vitamin B1 2 level below reference range 814425977 R79.9 Vitamin D deficiency 347 94944 E55.9 Hypothyroidism 82022054 E03.9 [id number] [facility] [address] [place] [address] 09499[address] 0 03/08/2020 12:14:02 03/09/2020 11:30:27 COVID-19 454745179 U07.1 Discussed with patient, agreed to try medication s as ordered, also been advised to go to close ER any time for any concern. [id number] MD Leon Ramirez (Adult Med) [address] [place] [address] [id number] 0 07/21/2020 08:11:40 07/21/2020 11:08:19 Allergic rhinitis 78477675 J30.9 Anemia 481524720 D64.9 Attention deficit hyperactivity disorder, predominantly inattentive type 21699317 F90.0 Chronic id iopathic constipation 34050948 K59.04 Vitamin B1 2 level below reference range 649184546 R79.9 Depressive disorder 3548 9007 F32.89 Fibromyalgia 920913774 M 79.7 Gastroesop hageal reflux disease 549861128 K21.9 Hypothyroidism 29444961 E03.9 Insomnia 214515587 G47.0 0 Low back pain 654906749 M54.5 Vitamin D deficiency 347 56799 E55.9 Hyperlipidemia 02444728 E78.5 [id number] MD Leon Ramirez (Adult Med) [address] [place] [address] 36[address] 0 08/15/2021 12:00:06 08/16/2021 11:19:22 Sinusitis 76997207 J32.9 Low back pain 487262387 M54.[address] Fuller is out of the office, to prevent interrupti on of therapy and withdrawal , I have refilled the Hydrocodon eILPMP reviewedUD S neededCDA 01/18/2019 Acute sinusitis 39067060 J01.90 Allergic rhinitis 357352 04 J30.9 Insomnia 417348178 G47.0 0 Gastroesop hageal reflux disease 557123668 K21.9 Nausea 991110550 R11.0 Hypothyroidism 95324628 E03.9 High hemog lobin A1c level 614903806 R73.09 Hyperlipidemia 58609271 E78.5 Vitamin B1 2 level below reference range 804658977 R79.9 Depressive disorder 3548 9007 F32.89 Fibromyalgia 772509942 M 79.7 Vitamin D deficiency 347 06488 E55.9 [id number] MD Leon Ramirez (Adult Med) [address] [place] [address] 26880[address] 0 02/26/2022 10:38:25 02/27/2022 13:14:17 Acute bronchitis 63479917 J20.9 Allergic rhinitis 644327 04 J30.9 Vitamin B1 2 level below reference range 420297301 R79.9 Fibromyalgia 392222780 M 79.7 Gastroesop hageal reflux disease 550021559 K21.9 Hyperlipidemia 24747832 E78.5 Hypothyroidism 86049198 E03.9 Insomnia 593910580 G47.0 0 Prolapsed cervical intervertebral disc 905342679 M50.20 Vitamin D deficiency 347 83298 E55.9 [id number] MD Leon Boyd (Adult Med) [address] [place] [address] 59446[address] 0 07/02/2022 10:51:52 07/03/2022 10:26:01 Obesity 945377400 E66.9 Depression screening 171 883048 Z13.31 1 Acute otit is externa of right ear 5317760319 780623 H60.501 Gastroesop hageal reflux disease without esophagitis 940690755 K21.9 Chronic cough 88872765 R 05.3 Dyspnea 421603901 R06.00 Continue Albuterol inhaler as needed. Acute bact erial sinusitis 42170529 J01.90 Adjustment disorder with depressed mood 24245284 F43.21 Body mass index 30+ - obesity 259887305 Z68.30 [id number] MD Leon Boyd (Adult Med) [address] [place] [address] 66160[address] 0 12/30/2022 14:58:21 01/03/2023 10:28:36 Obesity 155144157 E66.9 Pain of ri ght hip joint 4259569930 04277 M25.551 Proceed with x-ray for further evaluation . Follow up in two weeks. Hypothyroidism 12462002 E03.9 Has not been taking medication . Will return tomorrow morning for fasting labs and TSH. Difficulty sleeping 3013 18695 Z72.820 Hyperlipid emia screening 322700578 Z13.017 [id number] MD Leon Boyd (Adult Med) [address] [place] [address] 13680-608 0 01/20/2023 12:10:13 01/21/2023 10:31:52 Abnormal vaginal odor 25892427 N89.8 Serous otitis media 8032 7007 H65.01 [...] will follow up in two weeks. Hyperglycemia 17612851 R 73.9 Elevated fasting glucose. Will check Hemoglobin A1C. Serum thyr oid stimulating hormone level outside reference range 973651558 R89.1 Patient would like to be treated with thyroid medication . TSH was barely elevated. Will repeat TSH. Hypercholesterolemia 136 08213 E78.00 LDL greater than 190. Will start high dose lipid. Repeat chlolester ol and check LFTs in eight weeks. Pain of ri ght hip joint 0806407996 59827 M25.551 Will get right hip xray. Will get records from pain management person. Painful mouth 909692373 K13.79 Unsure of etiology. Some symptoms sounded [...] or if she develops any skin lesions. [id number] MD Leon Boyd (Adult Med) [address] [place] [address] 63745-163 0 02/03/2023 11:36:46 02/10/2023 13:07:39 Laboratory test result abnormal 777620372 R89.9 Plantar fa sciitis of left foot 9748906265 6733736 M72.2 Will follow up with specialist for possible injection Trochanter ic bursitis of right hip 6415928999 37190 M70.61 Seeing painter aircraft . Will work on weight loss and diet control which could be contributi ng factors. Discussed with patient. Hyperglycemia 39928096 R 73.9 Elevated fasting glucose. Will check Hemoglobin A1C. Discussed diet. Consider Ozempic which will help with weight loss and glucose. Follow up in one to two weeks. Body mass index 30+ - obesity 030778459 Z68.30 Discussed diet. Patient is unable to do much exercise at this time due to pain. Mentioned the Mediterran yu diet. Consider putting her back on Ozempic which has helped with weight loss in the past and will help with glucose control. Anxiety 21253940 F41.9 Patient appears anxious. Somewhat rapid speech. Discuss further at follow up. [id number] MD Leon Boyd (Adult Med) [address] [place] [address] 28567-553 0 02/12/2023 14:03:12 02/21/2023 13:49:58 Bipolar disorder 74497689 F31.9 Advised her to make sure to keep regular appointmen ts with her psychiatri st and continue to discuss her concerns about impulsive behavior. Hyperglycemia 63198110 R 73.9 Elevated fasting glucose just at borderline of prediabete s and diabetes and Hemoglobin A1C was prediabete s. Patient is going to work on diet. Will start patient on Ozempic for glucose control and weight loss. Body mass index 30+ - obesity 053090829 Z68.30 Elevated BMI and elevated fasting glucose at borderline for diabetes. Will start patient on Ozempic for weight control and glucose control. Patient has taken this medication before. Will also work on diet. Follow up in one month. Anxiety 90507702 F41.9 Adjustment disorder with mixed emotional features 89716210 F43.23 We discussed the episodes of vomiting and passing out. These followed a very stressful event and were likely related to extreme anxiety and panic causing nausea and vomiting followed by vasovagal. She will let me know if she has any further episodes. [id number] MD Leon Boyd (Adult Med) [address] [place] [address] 52960-992 0 03/14/2023 11:50:53 03/18/2023 11:49:17 Body mass index 30+ - obesity 788948245 Z68.30 Started Ozempic. Continue to work on Diet. Recommend Mediterran yu diet. Follow up in one month. Reduced libido 8237413 R 68.82 Will get records from other provider. Will check on reasons for treating with Allopurino l. Explained to patient that it will not work for her to have two primary care providers and she does understand that. She said she sees this provider for her women's health care. Hypothyroidism 45090503 E03.9 Most recent TSH normal. Continue present thyroid medication . Bipolar disorder 7351616 4 F31.9 Strongly encouraged patient to make [...] appointmen t she can let me know. [id number] MD Leon Boyd (Adult Med) [address] [place] [address] 07/22/2023 11:06:49 07/24/2023 21:13:32 Drug abuse 99103599 F19.10 Going to rehab today. Follow up with me after rehab. Difficulty sleeping 3013 83665 Z72.820 Continue Trazadone to help with sleep. Hypercholesterolemia 136 44926 E78.00 Needs refill on cholestero l medication . Will need to repeat lipids and LFTs once she follows up when she is out of rehab. Gastroesop hageal reflux disease without esophagitis 037855247 K21.9 Needs refill on Omeprazole . Hyperglycemia 05470172 R 73.9 Tolerating Ozempic well. Increase to .5 mg weekly. Dyspnea 399565354 R06.00 Continue Albuterol inhaler as needed. Acute bronchitis 6556313 2 J20.9 Health Concerns Section Related Observation LastModified by Organization Detai ls LastModified Time None Recorded Concern Status LastModified by Organization Details LastModified Time None Recorded Advance Directives Directive None Recorded Payers Insurance Date Sequence Insurance Name Policy Number Policy Barth Covered Member ID Barth Member ID Guarantor Name 12/30/2022 2 *SELF PAY* Tamir Ferrell 12/30/2022 1 [employer] (O) [id number] Hope Ferrell [id number] Hope Ferrell 12/30/2022 1 [employer] Hope Ferrell [id number] Hope Ferrell 12/30/2022 1 [facility] (POS) Hope Ferrell [id number] Hope Ferrell 12/30/2022 1 [employer] [id number] Hope Ferrell [id number] Hope Ferrell 12/30/2022 1 [facility] - [facility] (MEDICARE - MEDICAID REPLACEMENT HMO) [id number] Hope Wang [id number] Hope Ferrell 08/11/2023 1 [facility] (MEDICAID HMO) [id number] Hope Wang [id number] Hope Ferrell 12/30/2022 1 [facility] - DOS PRIOR TO 2020 (MEDICAID REPLACEMENT - HMO) Hope Ferrell [id number] Hope Ferrell 12/30/2022 1 [facility] (PPO) [id number] Hope Mcnamarawer [id number] Hope Ferrell 12/30/2022 1 [facility] [id number] Hope Ferrell [id number] Hope Ferrell 07/07/2024 1 [facility] [id number] Enrique Ferrell [id number] Hope Ferrell Notes Date Note Type Note [...] stress right now, recently got back from [place] Ele Green MD Attn: Accounting,[address] [place], [address], [facility] 01/20/2023 17:42:27 02/03/2023 text/html follow up, concerned [...] tongue lesion resolved Ele Green MD Attn: Accounting[address] [place], [address], [facility] 02/06/2023 13:38:13 02/12/2023 text/html had a difficult [...] up with psychiatrist, Ele Green MD Attn: [address]ing[address] [place], [address], [facility] 02/12/2023 17:40:41 03/14/2023 text/html started a new mai b, went to pain management this morning, got [...] Ele Green MD Attn: Accounting,[address] [facility], [place], [address], [facility] 03/14/2023 13:15:43 07/22/2023 text/html rough last few [...] ears Ele Green MD Attn: Accounting[address] [place], [address], [facility] 07/22/2023 12:08:21 OBGyn Episode No OBEpisode recorded.
[2024-11-09 16:30] VITALS: BP 116/76; PULSE 79; RESP 18; TEMP 36.4; O2SAT 100
--- NOTE | 2024-11-09 16:52 | ED_ITS ---
HPI - General Adult General Chief complaint: Urogenital-Female Stated complaint: UTI History of Present Illness HPI narrative: Hope Ferrell is a 54 y/o female who presents with reports of feeling like she another recurrent UTI. She has had burining with urination that started 2 days ago. She reports that she does have a new sexual partner and is open for STI screening as well. Related Data Home Medications ?Medication ?Instructions ?Recorded ?Confirmed ?Last Taken ?Type semaglutide 1 mg/dose (4 mg/3 mL) 1 mg subcut WEEKLY 07/01/22 01/29/24 01/25/24 History subcutaneous pen injector (Ozempic) syringe with needle 3 mL 18 x 1 04/01/23 01/29/24 Unknown History 1/2 (BD Luer-Mulu Syringe) testosterone cypionate 200 mg/mL 50 mg IM [id number] 04/01/23 01/29/24 Unknown History intramuscular oil trazodone 50 mg tablet 100 mg PO HS Insomnia 04/01/23 01/29/24 01/28/24 History estradiol cypionate 5 mg/mL 0.5 mg IM [id number] 05/31/23 01/29/24 Unknown History intramuscular oil (Depo-Estradiol) lumateperone 10.5 mg capsule 21 mg PO HS 05/31/23 01/29/24 01/28/24 History (Caplyta) omeprazole 20 mg capsule,delayed 40 mg PO HS 05/31/23 01/29/24 01/28/24 History release progesterone micronized 100 mg 100 mg PO HS 11/12/23 01/29/24 01/28/24 History capsule cyanocobalamin (vitamin B-12) 1,000 mcg IM WEEKLY 01/29/24 01/29/24 01/26/24 History 1,000 mcg/mL injection solution dextroamphetamine-amphetamine ER PO 06/16/24 Unknown History 15 mg 24hr capsule,extend release acyclovir 800 mg tablet mg 11/09/24 Unknown History lumateperone 21 mg capsule mg PO 11/09/24 Unknown History (Caplyta) Allergies Allergy/AdvReac Type Severity Reaction Status Date / Time Sulfa (Sulfonamide AdvReac Mild Itching Verified 11/09/24 16:23 Antibiotics) Review of Systems Review of Systems: All systems reviewed & are unremarkable except as noted in HPI and below PMFSH Past Medical History Medical History Venous anomaly Constipation Vomiting Abnormal CT of the abdomen Diabetes states is prediabetic Pneumonia due to COVID-19 virus COVID-28 February 2020 Bronchitis Bipolar 1 disorder Surgical History Surgical History H/O tubal ligation H/O partial thyroidectomy Hx of tonsillectomy Family History Family History Father Family history of Parkinson's disease Social History Social History Years smoked: 3 Smoking status: Current every day smoker Tobacco type: e-cigarettes/vaping Smoking end date: 05/12/01 Additional smoking assessment comments: VAPING FOR 8 YEARS Alcohol intake: current Drinks per week: 1 Substance use: former Substance use type: crack/cocaine Other substance usage details: Daily Last use: takes hydrocodone for chronic back pain Do You Feel Safe in your Home?: Yes Lack of Transportation: No Lack of Food: Never True Current Housing: I Have Housing Concerned About Future Housing: No Difficulty Paying Gas/Electric Bills: No Difficulty Paying for Meds: No Currently Unemployed: No Education: High School Diploma/GED Difficulty w/ Childcare or Family Care: No Living arrangements: with family Gender identity (if verbalized by the patient): Female Spiritual care concerns: No Exam Narrative: GENERAL: Well-appearing, well-nourished, and in no acute distress. HEAD: Normocephalic, atraumatic. EYES: PERRLA and EOMI. ENT: Nares clear, no rhinorrhea or epistaxis. Mucous membranes moist. Oropharynx without tonsillar hypertrophy exudate or other lesions. NECK: Supple. No adenopathy or masses. No carotid bruits or JVD CHEST: Clear to auscultation. No respiratory distress. No wheezes rales or rhonchi HEART: Regular rate and rhythm. No murmur heard. Normal peripheral pulses. ABDOMEN: Soft, nontender, nondistended, normal active bowel sounds. EXTREMITIES: Normal range of motion. No edema. SKIN: Warm, dry, no rash. NEURO: No focal deficits. Alert and oriented x3. PSYCH: Normal mood and affect. Course Course Level of Care: Express Care Visit Vital Signs Vital signs: Vital Signs Temperature 36.4 C L 11/09/24 16:30 Pulse Rate 79 11/09/24 16:30 Respiratory Rate 18 11/09/24 16:30 Blood Pressure 116/76 11/09/24 16:30 Pulse Oximetry 100 11/09/24 16:30 Oxygen Delivery Room Air 11/09/24 16:30 Temperature 36.4 C L 11/09/24 16:30 Pulse Rate 79 11/09/24 16:30 Respiratory Rate 18 11/09/24 16:30 Blood Pressure 116/76 11/09/24 16:30 Pulse Oximetry 100 11/09/24 16:30 Oxygen Delivery Room Air 11/09/24 16:30 Medical Decision Making MDM Narrative Medical decision making narrative: 54 year-old patient presenting with suprapubic pain and urinary symptoms consistent with UTI. Urinalysis is unable to be obtained because the dip cannot be performed on the Azo that she is taking. Urine culture sent.Also sent an STI screening swab. Patient started on Macrobid and strongly advised to return for any increasing or worsening pain, fevers or vomiting. They expressed understanding of instructions and is discharged in stable condition. Procedures: Pulse oximetry interpretation - not hypoxic. Review of medical records. DISPOSITION: Discharged home in stable condition. IMPRESSION: assumed UTI and STI screening Medical Records Medical records reviewed: Yes I reviewed the external patient's medical records. Vital Signs Vital Signs: Vital Signs Temperature 36.4 C L 11/09/24 16:30 Pulse Rate 79 11/09/24 16:30 Respiratory Rate 18 11/09/24 16:30 Blood Pressure 116/76 11/09/24 16:30 Pulse Oximetry 100 11/09/24 16:30 Oxygen Delivery Room Air 11/09/24 16:30 Temperature 36.4 C L 11/09/24 16:30 Pulse Rate 79 11/09/24 16:30 Respiratory Rate 18 11/09/24 16:30 Blood Pressure 116/76 11/09/24 16:30 Pulse Oximetry 100 11/09/24 16:30 Oxygen Delivery Room Air 11/09/24 16:30 Vitals reviewed Discharge Plan Discharge Clinical Impression: Dysuria Patient Disposition: Home Condition: Stable Instructions: Antibiotic Form Additional Instructions: Start the Macrobid twice daily for 5 days Your urine culture and other tests should result in the next 2-3 days If you should need different or more treatment you will be notified continue to take Tylenol / Motrin Push oral hydration Follow up with your PCP in 1 week Patient Language: Mauritanian Prescriptions: New nitrofurantoin monohyd/m-cryst [Macrobid] 100 mg capsule 100 mg PO Q12H 5 Days Qty: 10 0RF Rx Instructions: must administer with a meal/food No Action Caplyta 10.5 mg capsule 21 mg PO HS omeprazole 20 mg capsule,delayed release(DR/EC) 40 mg PO HS Depo-Estradiol 5 mg/mL oil 0.5 mg IM [id number] dextroamphetamine-amphetamine 15 mg capsule,extended release 24hr PO acyclovir 800 mg tablet Caplyta 21 mg capsule PO Ozempic 1 mg/dose (4 mg/3 mL) pen injector 1 mg SUBCUT WEEKLY trazodone 50 mg tablet 100 mg PO HS (DME) BD Luer-Mulu Syringe 3 mL 18 x 1 1/2 syringe MISCELLANEOUS testosterone cypionate 200 mg/mL oil 50 mg IM [id number] cyanocobalamin (vitamin B-12) 1,000 mcg/mL solution 1,000 mcg IM WEEKLY progesterone micronized 100 mg capsule 100 mg PO HS Follow-up/Referrals: Jonny,DEBO Veras [Primary Care Provider] - 1 Week Time of Disposition: 17:08
[2024-11-09 20:10] LABS: Trichomonas Vag PCR NOT DETECTED (NOT DETECTE)
== END 2024-11-09 17:00 | disposition home or self-care (01) ==
PROVIDERS: Emergency Provider Nurse Practitioner Family; PCP Physician Assistant
DX: R30.0 Dysuria (principal); Z11.3 Encounter for screening for infections with a predominantly sexual mode of transmission; F17.290 Nicotine dependence, other tobacco product, uncomplicated; R73.03 Prediabetes; E89.0 Postprocedural hypothyroidism; Z86.16 Personal history of COVID-19
CPT/HCPCS: 87086; 87186; 87491; 87591; 87661; 99213; G0463

== ENCOUNTER 2024-11-17 17:08 | Emergency (ER) | payer OTHER, SELFPAY ==
--- OUTSIDE RECORDS SUMMARY | 2024-11-17 17:10 | XMS_ITS | Encounter Summary ---
Author Organization [facility] Address [address] [place] [address] Care Team Providers Care Tobacco Sample Puller Name Role Phone Ele Green MD Primary Care Provider [phone] Encounter Details Date Type Department Care Team (Late st Contact Info) Description 02/02/2018 Abstract [facility] CONVERSION [address] [place] [address] , Generic ConversionMD Social History Tobacco Use [...] on filedocumented in this encounter Care Teams Tobacco Sample Puller Relationship Specialty Start Date End Date Ele Green MD [address] [place] [phone] PCP - General EMERGENCY MEDICINE 03/10/23 documented as of this encounter
--- OUTSIDE RECORDS SUMMARY | 2024-11-17 17:10 | XMS_ITS | Patient Health Record ---
Author Organization [facility] Address [address] [facility] [address] [place] [address] Care Team Providers Care Constitutional Law Professor Name Role Phone Ele Green MD Primary Care Provider Roshana Loi West Unavailable [phone] Arjun Ray Unavailable [phone] Allergies Allergen (clinical drug ingredient) Drug/Non Drug Allergy documented on EMR Reaction Allergy Type Onset Date Status Substance with sulfonamide structure and antibacterial mechanism of action (substance) SULFA (SULFONAMIDE ANTIBIOTICS) (uncoded) Unknown Allergy 05/30/2023 Active Results Component Value Reference Range Notes UDT Reviewed date:12/05/2023 01:03:13 PM Interpretation: Performing Lab: Notes/Report: THC N 0 - 50 ng/ml Cocaine N 0 - 300 ng/ml Amphetamine N 0 - 1000 ng/ml Buprenorphine (BUP) N 0 - 10 ng/ml Secobarbital (Bar) N 0 - 300 ng/ml Oxazepam (BZO) N 0 - 300 ng/ml 5-sncwcfbgzk-2,6-pqzbduyi-6,3-diphenylpyrrolidine (NOAH P) N 0 - 300 ng/ml Methamphetamine (MET) N 0 - 1000 ng/ml Methylenedioxymethamphetamine (MDMA) N 0 - 500 ng/ml Morphine (MOP 300/[id number]) N 0 - 300 ng/ml Methadone (MTD) N 0 - 300 ng/ml Phencyclidine (PCP) N 0 - 25 ng/ml Nortriptyline (TCA) N 0 - 1000 ng/ml Oxycodone N 0 - 300 ng/ml x N 0 - 300 ng/ml UDT Reviewed date:12/12/2023 04:52:37 PM Interpretation: Performing Lab: Notes/Report: THC neg 0 - 50 ng/ml Cocaine net 0 - 300 ng/ml Amphetamine pow 0 - 1000 ng/ml Buprenorphine (BUP) neg 0 - 10 ng/ml Secobarbital (Bar) neg 0 - 300 ng/ml Oxazepam (BZO) neg 0 - 300 ng/ml 9-bxojmnwqil-0,3-ytxhjdpo-8,3-diphenylpyrrolidine (NOAH P) neg 0 - 300 ng/ml Methamphetamine (MET) neg 0 - 1000 ng/ml Methylenedioxymethamphetamine (MDMA) neg 0 - 500 ng/ml Morphine (MOP 300/[id number]) neg 0 - 300 ng/ml Methadone (MTD) neg 0 - 300 ng/ml Phencyclidine (PCP) neg 0 - 25 ng/ml Nortriptyline (TCA) neg 0 - 1000 ng/ml Oxycodone neg 0 - 300 ng/ml x neg 0 - 300 ng/ml UDT Reviewed date:01/23/2024 03:23:19 PM Interpretation: Performing Lab: Notes/Report: THC neg 0 - 50 ng/ml Cocaine neg 0 - 300 ng/ml Amphetamine pos 0 - 1000 ng/ml Buprenorphine (BUP) neg 0 - 10 ng/ml Secobarbital (Bar) neg 0 - 300 ng/ml Oxazepam (BZO) neg 0 - 300 ng/ml 4-coiszndhzw-5,8-fxzfcmti-4,3-diphenylpyrrolidine (NOAH P) neg 0 - 300 ng/ml Methamphetamine (MET) neg 0 - 1000 ng/ml Methylenedioxymethamphetamine (MDMA) neg 0 - 500 ng/ml Morphine (MOP 300/[id number]) neg 0 - 300 ng/ml Methadone (MTD) neg 0 - 300 ng/ml Phencyclidine (PCP) neg 0 - 25 ng/ml Nortriptyline (TCA) neg 0 - 1000 ng/ml Oxycodone neg 0 - 300 ng/ml x neg 0 - 300 ng/ml Reason For Referral No Information Medications Medication SIG (Take, Route, Frequency, Duration) Notes Start Date End Date Status Testosterone Cypionate 200 MG/ML Intramuscular 06/30/2023 Active LUER-ASHLEY SYRINGE-NEEDLE 3 mL 18 x 1 1/2 MISCELLANEOUS *Reorder from [facility] for eRx and Interaction Alerts* 06/30/2023 Active Depo-Estradiol 5 mg/mL Intramuscular 06/30/2023 Active LUER-ASHLEY SYRINGE-NEEDLE 3 mL 25 gauge x 1 MISCELLANEOUS *Reorder from [facility] for eRx and Interaction Alerts* 06/30/2023 Active Ozempic (1 MG/DOSE) 4 MG/3ML Subcutaneous *Pick strength-form from [facility] for eRX* 06/30/2023 Active traZODone HCl 100 [...] Vaccine Route Administration Date Status Comme nts Influenza virus vaccine, quadrivalent (IIV4), split virus, 0.25 mL dosage Unknown 01/23/2016 Administered Influenza virus vaccine, quadrivalent (IIV4), split virus, 0.25 mL dosage Unknown 01/28/2017 Administered Carlos Covid-19 Vaccine Unknown 12/12/2020 Administere d Social History Tobacco Use: Social History Observation [...] Notes Problem Mixed bipolar affective disorder, moderate (742005007) Bipolar disorder, current episode mixed, moderate (F31.62) Active confirmed Problem Generalized anxiety disorder (52607599) Generalized anxiety disorder (F41.1) Active confirmed Problem Primary insomnia (1008603) Primary insomnia (F51.01) Active confirmed Problem Attention-defici t hyperactivity disorder, unspecified type (F90.9) Active confirmed [...] N/A Encounters Encounter Location Date Provider Diagnosis [facility] [address] [place] [address] 12/03/2023 Loi Carvajal Generalized anxiety disorder F41.1 ; Bipolar disorder, current episode mixed, moderate F31.62 ; Primary insomnia F51.01 and Attention-deficit hyperactivity disorder, unspecified type F90.9 [facility] [address] [place] [address] 12/12/2023 Arjun Ray ADHD (attention defi cit hyperactivity disorder) F90.9 [facility] [address] [place] [address] 12/23/2023 Loi Carvajal Generalized anxiety disorder F41.1 ; Bipolar disorder, current episode mixed, moderate F31.62 ; Primary insomnia F51.01 and Attention-deficit hyperactivity disorder, unspecified type F90.9 [facility] [address] [place] [address] 01/23/2024 Loi Carvajal Generalized anxiety disorder F41.1 ; Bipolar disorder, current episode mixed, moderate F31.62 ; Primary insomnia F51.01 and Attention-deficit hyperactivity disorder, unspecified type F90.9 [facility] [address] [place] [address] 03/26/2024 Loi Carvajal Generalized anxiety disorder F41.1 ; Bipolar disorder, current episode mixed, moderate F31.62 ; Primary insomnia F51.01 and Attention-deficit hyperactivity disorder, unspecified type F90.9 [facility] [address] [place] [address] 08/23/2024 Loi Carvajla Generalized anxiety disorder F41.1 ; Bipolar disorder, current episode mixed, moderate F31.62 ; Primary insomnia F51.01 and Attention-deficit hyperactivity disorder, unspecified type F90.9 [facility] [address] [place] [address] 01/27/2024 Loi Carvajal Attention-deficit hyperactivity disorder, unspecified type F90.9 and Bipolar disorder, current episode mixed, moderate F31.62 [facility] [address] [place] [address] 03/05/2024 Loi Carvajal Attention-deficit hyperactivity disorder, unspecified type F90.9 [facility] [address] [place] [address] 03/29/2024 Loi Carvajal Attention-deficit hyperactivity disorder, unspecified type F90.9 [facility] [address] [place] [address] 05/03/2024 Loi Carvajal Attention-deficit hyperactivity disorder, unspecified type F90.9 [facility] [address] [address] 06/11/2024 Loi Carvajal Attention-deficit hyperactivity disorder, unspecified type F90.9 [facility] [address] [address] 07/22/2024 Loi Carvajal Attention-deficit hyperactivity disorder, unspecified type F90.9 [facility] [address] [place] [address] 08/18/2024 Loi Carvajal Attention-deficit hyperactivity disorder, unspecified type F90.9 [facility] [address] [place] [address] 10/12/2024 Oli Carvajal Attention-deficit hyperactivity disorder, unspecified type F90.9 [...] assess patient's progress and medication needs 08/23/2024 Other Hope Ferrell, a female patient with a history [...] Provider Name:Loi franks, 12/03/2024 09:30:00 AM, [address], [facility] [address], [place], [address], Insurance Providers Payer Name Payer Address Payer Phone Subscriber Number Group Number Insured Name Patient Relationship to Insured Coverage Start Date Coverage End Date [facility] [address] [address] [place] [address] [id number] ERICKAGINOA Self - patient is the insured [facility] [address] [address] [place] [address] [id number] GINO FERRELLA Self - patient is the insured Medical (General) History Medical History History ICD Code Problems: Attention deficit hyperactivit y disorder Bipolar affective disorder, current epis ode depression Cocaine dependence Generalized anxiety disorder Mixed bipolar affective disorder, modera te Primary insomnia , Imported from [facility]: Te st Name: Lipid Panel(AMA) w/LDL Calculated Test [...] Normal Surgical History Surgery Date(Month/Year) Tonsilectomy/adenoids Tonsillectomy ([id number]) 05/12/2009
--- OUTSIDE RECORDS SUMMARY | 2024-11-17 17:10 | XMS_ITS | Clinical Summary ---
Author Organization [facility] Address [address] [place] [address] Care Team Providers Care Health Records Technology Teacher Name Role Phone Ele Green MD Primary Care Provider [phone] Social History Tobacco Use Types Packs/Day Years [...] patient's age to complete this topic Insurance [facility] Care Teams Health Records Technology Teacher Relationship Specialty [place] [address] [place] [phone] PCP - General EMERGENCY MEDICINE 03/10/23
--- OUTSIDE RECORDS SUMMARY | 2024-11-17 17:10 | XMS_ITS | Data Portability ---
Author Organization [facility] Address [address] [place] [address] Care Team Providers Care Tubing Drier Name Role Phone MEHRANSUSIE MERCER Primary Care Provider [phone] Assessment Encounter Date Assessment Date Assessment LastModified [...] recorded. Lab testosteron e, total, serum 2023 [facility] (Lab), [address] [place], [address], 4 13:06:30 testosteron e, free, serum 2023 024 [facility] (Lab), [address] [place], [address], 4 13:06:31 CMP, serum or plasma 2023 024 [facility] (Lab), [address] [place], [place], [address], 4 13:06:30 hormone panel, serum or plasma 2023 024 [facility] (Lab), [address], [place], [address], 4 11:58:04 Referral None recorded. Procedures None recorded. Surgeries dilation and curettage with hysteroscop y (SURG) 2023 024 [facility], [address], [place], [address], 4 15:05:27 Imaging US, pelvis 2023 [address], [address], [place], [address], 4 15:22:56 US, transvagina l 2023 [address], [address], [place], [address], 4 15:22:56 MAMMO, screening, bilateral [address] [facility], [address], [place], [address], 4 10:56:46 US, pelvis, complete 2023 [facility]24 [facility] [address], [address], [place], [address], 4 13:24:25 Medication Orders None recorded. Patient [...] or kits canno t be used inter [facility] . Femal e Estra diol Range s: Folli cular phasE 12.4- 233 pg/mL Ovula tion phasE 41.0- 398 pg/mL Lutea l phasE 22.3- 341 pg/mL Postm enopa usal <5-13 8 pg/mL Healt hy Pregn ant Women 1st Trime ster 154-3 243 pg/mL 2nd Trime ster 1561- 34777 pg/mL 3rd Trime ster 8525- >3000 0 pg/mL Not Available [facility] (Lab) [address] [place], [address], 10/10/2023 11:58:04 10/09/19 24 10/09/2023 FSH, LH, ESTRA DIOL FSH 15.0 mIU/m L This assay was perfo rmed using [employer] n reage nts and test kits. Value s obtai kieran with other assay metho ds or kits canno t be used inter [facility] . Femal es Folli cular : 3.5-1 2.5 mIU/m L Ovula tion: 4.7-2 1.5 mIU/m L Lutea l: 1.7-7 .7 mIU/m L Postm enopa use: 25.8- 134.8 mIU/m L Not Available [facility] (Lab) [address] [place], [address], 10/10/2023 11:58:04 10/09/19 24 10/09/2023 FSH, LH, ESTRA DIOL LH 8.7 mIU/m L This assay was perfo rmed using [employer] reage nts and test kits. Value s obtai kieran with other assay metho ds or kits canno t be used inter [facility] . Femal es Mid-F ollic ular: 2.4-1 2.6 mIU/m L Mid-C ycle: 14.0- 95.6 mIU/m L Mid-L uteal : 1.0-1 1.4 mIU/m L Postm enopa use: 7.7-5 8.5 mIU/m L Not Available [facility] (Lab) [address] [facility], [place], [address], 10/10/2023 11:58:04 12/02/19 24 12/02/2023 TESTO STERO NE, TOTAL testosterone , total 84 NG/dL 0-100 Not Available [facility] (Lab) [address] [facility], [place], [address], 12/07/2023 13:06:30 12/02/19 24 12/02/2023 CMP(C OMPRE HENSI VE METAB OLIC PANEL ) sodium 139 mmol/ L 133-14 6 Not Available [facility] (Lab) [address] [facility], [place], [address], 12/07/2023 13:06:30 12/02/19 24 12/02/2023 CMP(C OMPRE HENSI VE METAB OLIC PANEL ) potassium 4.2 mmol/ L 3.5-5. 1 Not Available [facility] (Lab) [address] [facility], [place], [address], 12/07/2023 13:06:30 12/02/19 24 12/02/2023 CMP(C OMPRE HENSI VE METAB OLIC PANEL ) chloride 103 mmol/ L 98-107 Not Available [facility] (Lab) [address] [facility], [place], [address], 12/07/2023 13:06:30 12/02/19 24 12/02/2023 CMP(C OMPRE HENSI VE METAB OLIC PANEL ) carbon dioxide 26 mmol/ L 21-31 Not Available [facility] (Lab) [address] [place], [address], 12/07/2023 13:06:30 12/02/19 24 12/02/2023 CMP(C OMPRE HENSI VE METAB OLIC PANEL ) anion gap 10 mmol/ L 4-13 Not Available [facility] (Lab) [address] [facility], [place], [address], 12/07/2023 13:06:30 12/02/19 24 12/02/2023 CMP(C OMPRE HENSI VE METAB OLIC PANEL ) blood urea nitrogen 10 mg/dL 7-25 Not Available [facility] (Lab) [address] [facility], [place], [address], 12/07/2023 13:06:30 12/02/19 24 12/02/2023 CMP(C OMPRE HENSI VE METAB OLIC PANEL ) creatinine 0.86 mg/dL 0.60-1 .30 Not Available [facility] (Lab) [address] [facility], [place], [address], 12/07/2023 13:06:30 12/02/19 24 12/02/2023 CMP(C OMPRE HENSI VE METAB OLIC PANEL ) egfrcr (CKD-epi 2020) 81 mL/mi n/1.7 3_m2 >=60 Not Available [facility] (Lab) [address] [facility], [place], [address], 12/07/2023 13:06:30 12/02/19 24 12/02/2023 CMP(C OMPRE HENSI VE METAB OLIC PANEL ) calcium 9.4 mg/dL 8.3-10 .5 Not Available [facility] (Lab) [address] [facility], [place], [address], 12/07/2023 13:06:30 12/02/19 24 12/02/2023 CMP(C OMPRE HENSI VE METAB OLIC PANEL ) glucose 99 mg/dL 70-100 Not Available [facility] (Lab) [address] [facility], [place], [address], 12/07/2023 13:06:30 12/02/19 24 12/02/2023 CMP(C OMPRE HENSI VE METAB OLIC PANEL ) protein, total 7.0 g/dL 6.4-8. 3 Not Available [facility] (Lab) [address] [facility], [place], [address], 12/07/2023 13:06:30 12/02/19 24 12/02/2023 CMP(C OMPRE HENSI VE METAB OLIC PANEL ) albumin 4.5 g/dL 3.5-5. 0 Not Available [facility] (Lab) [address] [facility], [place], [address], 12/07/2023 13:06:30 12/02/19 24 12/02/2023 CMP(C OMPRE HENSI VE METAB OLIC PANEL ) ALT 12 units /L 9-43 Not Available [facility] (Lab) [address] [facility], [place], [address], 12/07/2023 13:06:30 12/02/19 24 12/02/2023 CMP(C OMPRE HENSI VE METAB OLIC PANEL ) alkaline phosphatase 73 units /L 34-104 Not Available [facility] (Lab) [address] [facility], [place], [address], 12/07/2023 13:06:30 12/02/19 24 12/02/2023 CMP(C OMPRE HENSI VE METAB OLIC PANEL ) AST 15 units /L 13-39 Not Available [facility] (Lab) [address] [facility], [place], [address], 12/07/2023 13:06:30 12/02/19 24 12/02/2023 CMP(C OMPRE HENSI VE METAB OLIC PANEL ) bilirubin, total 0.9 mg/dL 0.2-1. 2 Not Available [facility] (Lab) [address] [place], [address], 12/07/2023 13:06:30 12/02/19 24 12/02/2023 TESTO STERO [...] by [facility] [place], [place]. It has not been clear ed or appro tiarra by the U.S. Food and Drug Admin istra tion. This assay has been valid ated pursu ant to the CLIA regul ation s and is used for clini estella purpo ses. Perfo rming Organ izati on Infor matio n: Site ID: AMD Name: [facility] ostjoseph s Jai ls [facility] tute Addre ss: [id number] [place], [place] Direc tor: Tito Belcher MD PhD Not Available [facility] (Lab) [address] [facility], [place], [address], 12/07/2023 13:06:31 10/13/19 24 10/13/2023 US, pelvi s No observ ation record ed. [email or web address] [place] [address], [place], [address], 10/13/2023 13:09:06 10/13/19 24 10/13/2023 US, trans vagin al No observ ation record ed. [email or web address] [place] [address], [place], [address], 10/13/2023 13:08:56 10/13/19 24 10/13/2023 US, pelvi s No observ ation record ed. [email or web address], [place], [address], 10/22/2023 11:29:49 Result Notes None recorded. Procedures Surgical History Date Name Laterality Status Provider Name and Address Organization Details Recorded Time 11/24/19 24 DILATION AND CURETTAGE WITH HYSTEROSCOPY (SURG) completed Madi Lester [facility] 11/24/2023 16:16:49 10/09/19 24 Date of Last Pap Smear completed [facility] 12/02/2023 10:05:10 05/12/19 23 Date of Last Colonoscopy completed [facility] 10/09/2023 11:57:28 05/12/19 11 Tonsillectomy completed [facility] 10/09/2023 12:06:33 05/12/19 10 thyroidectomy completed [facility] 10/09/2023 12:06:47 Tubal Ligation completed [facility] 10/09/2023 12:06:25 Imaging Results None recorded. Procedure Notes None recorded. Medical Equipment None Reported. Allergies Allergen ID Allergen Name Allergen Category Reaction Reaction Severity Criticality Documentation Date Start Date Code Code System Note Provider Name and Address Organization Details Recorded Time 80006 Substance with sulfonami de structure and antibacte rial mechanism of action (substanc e) medicatio n Not available Not available Not available 10/09/2023 42882 8003 SNOMED [facility] 11:51:23 Medications Name Sig Start Date [...] Body mass index (BMI) Body weight Systolic And Diastolic Provider Name and Address Organization Details Last Updated DateTime 10/09/2023 162.56 cm 32.3 kg/m2 78410.37 g 124/78 mm[Hg] Cynthia Landeros [place] - [facility] 10/09/2023 11:51:13 Date Recorded Body height Body mass index (BMI) Body weight Systolic And Diastolic Provider Name and Address Organization Details Last Updated DateTime 10/23/2023 162.56 cm 32.9 kg/m2 47588.02 g 101/67 mm[Hg] Renée Porrasmanuel [facility] 10/23/2023 09:35:21 Date Recorded Body height Body mass index (BMI) Body weight Systolic And Diastolic Provider Name and Address Organization Details Last Updated DateTime 12/02/2023 162.56 cm 31.8 kg/m2 15628.59 g 106/73 mm[Hg] Cynthia Tigre [facility] 12/02/2023 10:03:58 Social History Question Answer Notes LastModified by Organizat ion Details LastModified Time Tobacco Smoking Status Current Every Day Smoker Cynthia Landeros [facility], [facility] 10/09/2023 12:02:44 Are You Blind Or [...] Or The Highest Degree You Have Received? [id number] Information not available 10/09/2023 Are There Any [...] anxious, or unable to sleep at night)? [id number] Information not available 10/09/2023 Family History Relationship [...] SNOMED-CT Code Diagnosis ICD10 Code Diagnosis Note [id number] CAITLIN [facility] [address] [address] 10/09/2023 11:22:36 10/09/2023 12:35:07 Postmenopausal bleeding 42425674 N95.0 Today we agreed to update a [...] of plan of care. 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 [id number] Alhaji Eldridge MD [place] [address] [address] 10/13/2023 11:39:42 10/13/2023 12:49:01 Postmenopausal bleeding 92085912 N95.0 [id number] HSAE CASH MD [place] [address] [address] 10/23/2023 09:17:40 10/29/2023 06:52:18 Postmenopausal bleeding 03187126 N95.0 - on HRT (estrogen and testostero ne) for years, no progestero ne therapy until August- two episodes of PMB- pelvic US demonstrat es heterogeno us and threatened endometriu m, 7mm- recommend full endometria l sampling with hysterosco py and D&C; r/b/a discussed with patient- continue progestero ne therapy until D&C [id number] SHAE CASH MD [place] [address] [address] 12/02/2023 09:52:04 12/02/2023 10:42:17 Hormone replacement therapy [id number] Z79.890 - on IM testostero ne and estrogen, PO progestero ne- reports facial hair growth, voice deepening- will check testostero ne and CMP today; patient not fasting for lipid panel- follow up on results as available Postoperative visit 8289 30935 Z48.89 - s/p hysterosco py D&C 11/23- [...] Member ID Guarantor Name 11/30/2023 1 [id number] Enrique Ferrell [id number] Hope Ferrell Notes Date Note Type Note Provider Name and Address Organization Details Recorded Time 10/09/2023 text/html [facility] - Abnormal BleedingReported bypatient.Onset/Timin g:postmenopause Duration:1-2 days Quality:spotting (brownish like old blood);irregular Context:current HRT use (Testosterone injections/Progestero ne--not new regimen) Associated Symptoms:no dysmenorrhea; no abdominal pain; no dyspareunia; no fatigue; no dizziness; no anemia/iron supplements; no shortness of breath; no CP/palpitations;pelvi c pain(left lower) Gertrude Peñaloza, [facility] [address], [place], [address], [facility] 10/09/2023 12:34:33 10/23/2023 text/html Presents for [...] cancer. SHAE CASH MD [address], [place], [address], [facility] 10/28/2023 22:58:21 12/02/2023 text/html S/p hysteroscopy D&C 11/23. Patient doing well, no complaints. Pain resolved. Tolerating general diet. Denies nausea or vomiting. No shortness of breath or chest pain. Ambulating. Bleeding resolved. Patient on HRT with IM estrogen and testosterone. Patient reports increased facial hair and voice deepening. SHAE CASH MD [address], [place], [address], [facility] 12/02/2023 10:36:37 OBGyn Episode Ob Episode Information Episode Created Date Number of Fetuses Patient Bloodtype Patient rh Status Prepregnancy Weight lbs Domestic Partner Domestic Partner Phone Father Name Game Artist Status 10/09/19 24 1 CLOSED Fetus Data First Name Last Name Admitted to NICU Weight (g) Sex Living Outcome Pediatric Complications Fetus ID Race Codes Race Delivery Type M Full Term 17345 Vaginal Delivery [place] Calculation Initial [place] Date [...] Domestic Partner Domestic Partner Phone Father Name Game Artist Status 10/09/19 24 1 CLOSED Fetus Data First Name Last Name Admitted to NICU Weight (g) Sex Living Outcome Pediatric Complications Fetus ID Race Codes Race Delivery Type , Spontane ous 43699 [place] Calculation Initial [place] Date Initial Exam [...] Domestic Partner Domestic Partner Phone Father Name Game Artist Status 10/09/19 24 1 CLOSED Fetus Data First Name Last Name Admitted to NICU Weight (g) Sex Living Outcome Pediatric Complications Fetus ID Race Codes Race Delivery Type F Full Term 42553 Vaginal Delivery [place] Calculation Initial [place] Date [...] Domestic Partner Domestic Partner Phone Father Name Game Artist Status 10/09/19 24 1 CLOSED Fetus Data First Name Last Name Admitted to NICU Weight (g) Sex Living Outcome Pediatric Complications Fetus ID Race Codes Race Delivery Type , Induced 13489 [place] Calculation Initial [place] Date Initial Exam [...] Domestic Partner Domestic Partner Phone Father Name Game Artist Status 10/09/19 24 1 CLOSED Fetus Data First Name Last Name Admitted to NICU Weight (g) Sex Living Outcome Pediatric Complications Fetus ID Race Codes Race Delivery Type , Spontane ous 30292 [place] Calculation Initial [place] Date Initial Exam [...] Domestic Partner Domestic Partner Phone Father Name Game Artist Status 10/09/19 24 1 CLOSED Fetus Data First Name Last Name Admitted to NICU Weight (g) Sex Living Outcome Pediatric Complications Fetus ID Race Codes Race Delivery Type , Induced 60753 [place] Calculation Initial [place] Date Initial Exam [...] Domestic Partner Domestic Partner Phone Father Name Game Artist Status 10/09/19 24 1 CLOSED Fetus Data First Name Last Name Admitted to NICU Weight (g) Sex Living Outcome Pediatric Complications Fetus ID Race Codes Race Delivery Type F Full Term 19672 Vaginal Delivery [place] Calculation Initial [place] Date [...]
--- OUTSIDE RECORDS SUMMARY | 2024-11-17 17:10 | XMS_ITS | Encounter Summary ---
Author Organization [facility] Address [address] [place] [address] Care Team Providers Care Park Interpretive Specialist Name Role Phone Job Fuller APRN-JAVA SECURITY ENGINEER Unavailable [phone] Job Fuller SEED CONE PICKER-JAVA SECURITY ENGINEER Primary Care Provider Encounter Details Date Type Department Care Team (Late st Contact Info) Description 05/16/2023 Lab Requisition [facility] Lab [address] [facility] [place] [address] Jim Westbrook MD [address] [place] [address] Social History Tobacco Use Types [...] CDT Office Visit [facility] - ASSISTANT CASINO SHIFT MANAGER [address] [place] [address] Miguel A Hood Che, MD [address] [place] [address] documented as of this encounter Procedures Procedure Name Priority Date/Time Associated Diagnosis Comments DERMATOPATHOLOGY Routine 05/15/2023 12:0 0 AM ROVING WEIGHT GAUGER documented in this encounter Results * DERMATOPATHOLOGY (05/15/2023 12:00 AM ROVING WEIGHT GAUGER) Case Report Dermatopathology Report Case: [id number] Authorizing Provider: Jim Westbrook MD Collected: 05/15/2023 12:00 AM Ordering Location: [facility] Received: 05/16/2023 12:53 PM Pathologist: Alisia Masters MD Specimen: Skin, left upper chest 2:48 PM ROVING WEIGHT GAUGER DERMATOPATHOLOGY LABORATORY Final Diagnosis Specimen A. SKIN, left upper chest: HYPERPLASTIC (HYPERTROPHIC) ACTINIC KERATOSIS WITH ACANTHOLYTIC FEATURES (L57.0) (see microscopic description) 2:48 PM ROVING WEIGHT GAUGER DERMATOPATHOLOGY LABORATORY at 1448 ROVING WEIGHT GAUGER Clinical History AK vs BCCA. Path#[id number] 2:48 PM ROVING WEIGHT GAUGER DERMATOPATHOLOGY LABORATORY Gross Description Specimen A: Received is one formalin filled container labeled with the patient's name and designated left upper chest. The specimen consists of a shave biopsy measuring 4x2x1 mm. Jar 0. 2:48 PM ROVING WEIGHT GAUGER DERMATOPATHOLOGY LABORATORY Microscopic Description Specimen A. SKIN, left upper chest: There is hyperkeratosis alternating with parakeratosis. There is epidermal hyperplasia with disorderly maturation of keratinocytes with nuclear pleomorphism confined to the lower half of the epidermis. Focally there is a suprabasilar cleft with acantholytic cells. Additional deeper sections were obtained and reviewed. 2:48 PM ROVING WEIGHT GAUGER DERMATOPATHOLOGY LABORATORY Disclaimer An external and internal positive and negative controls are appropriate for the histochemical, immunohistochemical and immunofluorescence stain(s) in this case (if any), except where stated explicitly. The performance characteristics of the stain(s) cited in this report were developed and its performance characteristic determined by the Dermatopathology Laboratory at [facility], directed by Dr. Neeraj Case. These tests need not be, and therefore are not, approved by the [place] Food and Drug Administration. The tests are used for clinical purposes. Billing Codes Specimen Charges Stain Charges 82319 1 4 2:48 PM ROVING WEIGHT GAUGER DERMATOPATHOLOGY LABORATORY Embedded Images 4 2:48 PM ROVING WEIGHT GAUGER DERMATOPATHOLOGY LABORATORY Pathology/Cytolog y TISSUE SPECIMEN FROM SKIN / Unknown 05/15/2023 05/16/2023 12:53 PM ROVING WEIGHT GAUGER us Jim Westbrook MD LAB - PATHOLOGY/CYTOLOGY ORDER KERON Final Result DERMATOPATHOLOGY LABORATORY [facility] - Department of Dermatology [address], [address] [phone] documented in this encounter Visit Diagnoses Not on filedocumented in this encounter Care Teams Park Interpretive Specialist Relationship Specialty Start Date End Date Job Fuller APRN-JAVA SECURITY ENGINEER [address] [place] [id number] PCP - General 06/06/20 Job Fuller APRN-JAVA SECURITY ENGINEER [address] [place] [id number] 05/29/20 documented as of this encounter
--- OUTSIDE RECORDS SUMMARY | 2024-11-17 17:10 | XMS_ITS | Data Portability ---
Author Organization [facility] [employer], Main Office Address [address] [place] [address] Assessment No assessment recorded. Plan of Treatment Reminders Order Date Submit Date Provider Last Modified By Organization Details Last Modified Time Details Appointments None recorded. Lab HbA1c (hemoglobi n A1c), blood 2024 025 [facility] ([facility] [address] [place], [address], 08:17:28 Referral diabetic ophthalmol ogy referral - Please call patient to schedule an appointmen t. Thank you. 2024 025 [facility], [address] , [place], [address], 15:11:01 urologist referral - painful interstiti al cystitis . Please eval and treat. Please call patient to schedule an appointmen t. Thank you 2024 [address] [facility] [address] Misti Zamarripa, [address] [place] [address]. [address] [address], [place], [address], 13:49:02 Procedures None recorded. Surgeries None recorded. Imaging MAMMO, screening, digital, bilateral [address], [facility] [address], [place], [address], 13:04:51 MAMMO, screening, digital, bilateral - Please call patient to schedule. [address], [address], [place], [address], 15:56:19 Medication Orders acyclovir 400 mg tablet 2024 025 [id number], [address] [facility], [place], [place], [id number], 09:35:10 Linzess 290 mcg capsule 2024 025 [facility][id number], [address] [facility], [place], [place], [id number], 10:25:46 Patient TargetsNo targets recorded. Patient Instructions Encounter Date Encounter Id Patient Instructions Last Modified By Organization Details Last Modified Time 09/17/2024 [id number] She's not fastin g , so we will draw lipid panel , cmp next time [email or web address] Not available 09/17/2024 09:55:41 Reason for Referral Urologist Referral for Pain of truncal structure painful interstitial cystitis . Please eval and treat. Please call patient to schedule an appointment. Thank you Referring Physician: Carlos Fuller [facility], Encounter Date: 09/17/2024 Diabetic Ophthalmology Refer ral for Diabetes mellitus Please call patient to schedule an appointment. Thank you. Referring Physician: [facility], Encounter Date: 09/17/2024 Problems Name Problem SNOMED Code Status Onset Date Resolution Date Notes Provider Name and Address Organization Details Recorded Time Plantar fascial fibromatosis 60799086 Active Not Available [facility] 3 07:31:46 Backache 929303903 Active Not Available [facility] 3 07:31:46 Microscopic hematuria 626937434 Active Not Available [facility] 3 07:31:46 Herpesvirus infection 92855389 Active Not Available [facility] 3 07:31:46 Thyroid dysfunction 900855138 Active Not Available [facility] 3 07:31:46 Closed fracture of lateral malleolus 96705410 Active Not Available [facility] 3 07:31:46 Depressive disorder 49145481 Active Not Available [facility] 3 07:31:46 Inflammatory disorder of extremity 434005071 Active Not Available [facility] 3 07:31:46 Mixed urinary incontinence 199788678 Active Not Available [facility] 3 07:31:46 Fracture of lower leg 637869060 Active Not Available [facility] 3 07:31:46 Irritable bowel syndrome characterized by constipation 213725351 Active 2024 DEBO Tripathi [address], [address], [place], [address] , [place] [facility] 5 10:24:20 Screening mammography Active 2024 DEBO Tripathi [address], [address], [place], [address] , [place] [facility] 5 10:31:07 Adult health examination Active 2024 DEBO Tripathi [address], [address], [place], [address] , [place] [facility] 5 12:38:45 Chronic primary bladder pain syndrome Active 2024 DEBO Tripathi [address], [address], [place], [address] , [place] [facility] 5 09:29:16 Pain of truncal structure 027988083 Active 2024 DEBO Tripathi [address], [address], [place], [address] , [place] [facility] 5 09:30:03 Herpes simplex 66993845 Active 2024 DEBO Tripathi [address], [address], [place], [address] , [place] [facility] 5 09:34:15 Maturity onset diabetes of the young, type 2 798290254 Active 2024 DEBO Tripathi [address], [address], [place], [address] , [place] [facility] 5 09:42:44 Diabetes mellitus 67168206 Active 2024 DEBO Tripathi [address] [facility], [facility] [address], [place], [address] , [facility] 5 09:43:13 Notes:Earline is her pain kami gement Problem Notes None recorded. Procedures Surgical History Date Name Laterality Status Provider Name and Address Organization Details Recorded Time 07/12/19 10 tonsillectomy completed Heidi Howell RN [facility] 07/23/2024 10:11:38 06/19/19 10 partial substernal thyroidectomy completed Heidi Howell RN [facility] 07/23/2024 10:12:30 08/03/18 74 procedure on urethra completed Heidi Howell RN [facility] 07/23/2024 10:13:24 Imaging Results None recorded. Procedure Notes None recorded. Medical Equipment None Reported. Allergies Allergen ID Allergen Name Allergen Category Reaction Reaction Severity Criticality Documentation Date Start Date Code Code System Note Provider Name and Address Organization Details Recorded Time 61211 Substance with sulfonami de structure and antibacte rial mechanism of action (substanc e) medicatio n itching mild low 07/23/2024 23779 8003 SNOMED Heidi Howell RN [facility] 5 09:59:23 Medications Name Sig Start Date [...] in Arterial blood by Pulse oximetry Systolic And Diastolic Provider Name and Address Organization Details Last Updated DateTime 5 162.56 cm 25.6 kg/m2 07715.6 1 g 97.9 [degF] 102 /min 97 % 97 % 120/70 mm[Hg] Heidi Howell RN [facility] [employer] 5 09:58:46 Date Recorded Body height Body mass index (BMI) Body weight Body temperature Oxygen saturation Oxygen saturation in Arterial blood by Pulse oximetry Heart rate Systolic And Diastolic Provider Name and Address Organization Details Last Updated DateTime 5 162.56 cm 26.4 kg/m2 59181.2 2 g 98.8 [degF] 100 % 100 % 78 /min 118/78 mm[Hg] CHUNG Marroquin [facility] [employer] [facility] 09:21:33 Social History Question Answer Notes LastModified by Organizat [employer] Details LastModified Time Tobacco Smoking Status Former Smoker Heidi Howell RN [facility], [facility] 07/23/2024 10:11:07 What Is Your Level Of Caffeine Consumption? Occasional 2 Times A Month Drinks Pepsi [email or web address] Information not available 07/23/2024 When Did You Quit Smoking? 16+yearssincel astcigarette Quit 2000 [email or web address] Information not available 07/23/2024 What Is Your Current Pack Years? 10packyears [email or web address] Information not available 07/23/2024 At What Age Did You Start Smoking Tobacco? 27 [email or web address] Information not available 07/23/2024 How Much Tobacco Do You Smoke? 0.5 PPD [email or web address] Information not available 07/23/2024 How Many Years Have You Smoked Tobacco? 3 [email or web address] Information not available 07/23/2024 How Many Years Have You Used E-cigarettes Or Vape? 10 [email or web address] Information not available 07/23/2024 Sex: Unknown Functional Status Question Answer Note LastModified by Organizat [employer] Details LastModified Time Do you use any illicit or recreational drugs? No Information not available 07/23/2024 Do you or have you ever used any other forms of tobacco or nicotine? Yes [email or web address] Information not available 07/23/2024 What is your level of alcohol consumption? Occasional Information not available 07/23/2024 Do you or have you ever used smokeless tobacco? Never used smokeless tobacco [email or web address] Information not available 07/23/2024 Do you or have you ever used e-cigarettes or vape? Current user of electronic cigarettes [email or web address] Information not available 07/23/2024 Mental Status None recorded. Family History Relationship Description Onset Age of this Age Resolved Age Notes LastModified by Organization Details LastModified Time Father Parkinson's disease 45 78 [email or web address] Not available 07/23 10:06:24 Mother Familial idiopathic pulmonary fibrosis 66 66 Not available 07/23 10:07:19 Sister Familial idiopathic pulmonary fibrosis 52 52 [email or web address] Not available 07/23 10:07:19 Medical History No medical history recorded. Gynecological HistoryNo gynecological history recorded. Obstetrics History GPAL:G 0 P 0 0 0 0 Past Encounters Encounter ID Performer Location Encounter Start Date Encounter Closed Date Diagnosis/Indication Diagnosis SNOMED-CT Code Diagnosis ICD10 Code Diagnosis Note [id number] Pedro Flores MD [address] [address] 07/23/2024 09:48:55 07/23/2024 11:33:41 Irritable bowel syndrome characterized by constipation 445716617 K58.1 Screening mammography 24 864750 Z12.31 Adult heal th examination 797839677 Z00.00 [id number] Pedro Flores MD [address] [address] 09/17/2024 09:09:16 09/24/2024 08:37:31 Pain of truncal structure 191468640 N30.10 Herpes simplex 18733597 B00.9 Screening mammography 24 607950 Z12.31 Maturity o nset diabetes of the young, type 2 046360952 E13.9 Diabetes mellitus 697609 09 E11.9 Chronic pr imary bladder pain syndrome 6304387881 7104 N30.10 Health Concerns Section Related Observation LastModified by Organization Detai ls LastModified Time None Recorded Concern Status LastModified by Organization Details LastModified Time None Recorded Advance Directives Directive None Recorded Payers Insurance Date Sequence Insurance Name Policy Number Policy Barth Covered Member ID Barth Member ID Guarantor Name 07/23/2024 1 [place] [id number] Hope Ferrell [id number] Hope Ferrell 07/02/2024 1 [facility] Ghassan [id number] Hope Ferrell 09/24/2024 1 [id number] Hope Ferrell [id number] Hope Ferrell 09/24/2024 2 [facility] [id number] Hope Ferrell [id number] Hope Ferrell Notes Date Note Type Note Provider Name and Address Organization Details Recorded Time 07/23/2024 text/html hands an arms nu mb at night. A1c is 5.1 , was dagnosed as diabetic to receive the ozempic . has a year's supply DEBO Tripathi [address], [place], [address], [employer] 07/31/2024 12:39:48 09/17/2024 text/html needs a referral to a new urologist for her interstitial cystitis . is in detention , him DEBO Trpiathi [address], [place], [address], [employer] 09/21/2024 10:10:27 OBGyn Episode No OBEpisode recorded.
--- OUTSIDE RECORDS SUMMARY | 2024-11-17 17:10 | XMS_ITS | Clinical Summary ---
Author Organization [facility] Address [address] [place] [address] Care Team Providers Care Vascular Technician Name Role Phone Job Fuller APRN-JOSÉ MIGUEL Unavailable [phone] Job Fuller APRN-JOSÉ MIGUEL Primary Care Provider Source Comments [facility],non-owned Affiliates and Associated Physician Practices is amultiple site organization consisting of ambulatory clinics and hospital sitesin [place], [place], [place] and [place]. This disclosure is being madepursuant to the Care Everywhere program and may not contain all information available regarding this patient. 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 Temperature 36.1 C (97 F) 07/07/2020 10:58 AM GREENHOUSE INSTRUCTOR Respiratory Rate 20 06/02/2020 9:05 AM GREENHOUSE INSTRUCTOR Oxygen Saturation 96% 07/07/2020 10:58 AM GREENHOUSE INSTRUCTOR Inhaled Oxygen Concentration - - Weight 67.2 kg (148 lb 3.2 oz) 10/01/2024 1:30 P M CDT Height 162.6 cm (5' 4) 10/01/2024 1:30 PM CDT Body Mass Index 25.44 10/01/2024 1:30 PM CDT Plan of Treatment Upcoming Encounters Date Type Department Care Team (Late st Contact Info) Description 11/18/2024 4:00 PM CDT Office Visit [facility] [address], [address] [address] Miguel A Hood Che, MD [address] [facility] [address] [place] [address] Health Maintenance Due Date Last [...] 10/01/2024 DIABETES-SERUM CREATININE 12/01/2024 12/02/2023 INFLUENZA VACCINE (#1) 2025 7, 01/23/2016, 02/07/2015 HIB VACCINE Aged Out No [...] patient's age to complete this topic Insurance [facility] CARE [facility] CARE * Guarantor: HOPE BARNETT Account Type Relation to Patient Date of Phone Billing Address Personal/Family [address] [place] [address] [facility] * Guarantor: HOPE BARNETT Account Type Relation to Patient Date of Phone Billing Address Personal/Family [address] [place] [address] * Guarantor: HOPE BARNETT Account Type Relation to Patient Date of Phone Billing Address Personal/Family [address] [place] [address] Care Teams Vascular Technician Relationship Specialty Start Date End Date Job Fuller APRN-JOSÉ MIGUEL [address] [place] [address] PCP - General 06/06/20 Job Fuller APRN-CNP [address] [place] [address] 05/29/20
--- OUTSIDE RECORDS SUMMARY | 2024-11-17 17:11 | XMS_ITS | Referral Summary ---
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 Gender Identity Not on file Sexual Orientation Not on file Last Filed Vital Signs Vital Sign Reading Time Taken Comments Blood Pressure 101/61 09/13/2022 12:42 PM CDT Pulse 98 09/13/2022 12:42 PM CDT Temperature 36.5 C (97.7 F) 09/13/2022 12:42 PM CDT Respiratory Rate 18 07/01/2023 9:00 AM CARTON COUNTER FEEDER Oxygen Saturation 96% 09/13/2022 12:42 PM CDT room air Inhaled Oxygen Concentration - - Weight 83.5 kg (184 lb) 07/01/2023 9:00 AM CARTON COUNTER FEEDER Height 162.6 cm (5' 4) 07/01/2023 9:00 AM CARTON COUNTER FEEDER Body Mass Index 31.58 07/01/2023 9:00 AM CARTON COUNTER FEEDER Plan of Treatment Not on file Insurance [facility] Care Teams Swedger Relationship Specialty Start Date End Date Ele Green MD PCP - General Emergency Medicine 07/11/22
--- OUTSIDE RECORDS SUMMARY | 2024-11-17 17:11 | XMS_ITS | Data Portability ---
Author Organization [facility] REBECCAMaru Crenshaw Address [address] [facility] [place] [address] Assessment Encounter Date Assessment Date Assessment LastModified by Organization Details LastModified Time 02/12/2023 02/12/2023 Advised patient to avoid using cocaine. [email or web address] Not available 02/12/2023 15:20:42 Plan of Treatment Reminders Order Date Submit Date Provider Last Modified By Organization Details Last Modified Time Details Appointments None recorded. Lab TSH, ultra-sensi tive, serum 2022 023 [facility], [address] [place] [address], [address], [place], [address], 3 06:17:35 HbA1c (hemoglobin A1c), blood 2022 023 [facility], [address] [place] [address], [address], [place], [address], 3 06:17:36 HbA1c (hemoglobin A1c), blood 2022 023 [facility], [address] [place] [address], [address], [place], [address], 3 11:16:09 TSH, ultra-sensi tive, serum 2022 023 [facility], [address] [place] [address], [address], [place], [address], 3 11:16:08 bacterial vaginosis + vaginitis panel, vaginal 2022 023 [facility], [address] [facility], [address], [place], [address], 3 11:16:07 Referral None recorded. Procedures None recorded. Surgeries None recorded. Imaging None recorded. Medication Orders Ozempic 0.25 mg or 0.5 mg (2 mg/3 mL) subcutaneou s pen injector 2023 024 [facility], [address] [place], [address], 4 12:04:50 trazodone 50 mg tablet 2023 024 [facility], [address] [place], [address], 4 12:04:52 omeprazole 20 mg capsule,del ayed release 2023 024 [facility], [address] [place], [address], 4 12:04:52 rosuvastati n 20 mg tablet 2023 024 [facility], [address] [place], [address], 4 12:04:50 albuterol sulfate HFA 90 mcg/actuati on aerosol inhaler 2023 024 [facility], [address] [place], [address], 4 12:04:51 Ozempic 0.25 mg or 0.5 mg (2 mg/1.5 mL) subcutaneou s pen injector 2022 023 [facility], [address] [place], [address], 3 15:21:07 metronidazo le 500 mg tablet 2022 023 [facility], [address] [place], [address], 3 13:04:34 Crestor 20 mg tablet 2022 023 [facility], [address] [place], [address], 3 13:04:31 amoxicillin 875 mg tablet 2022 023 [facility], [address] [place], [address], 15:04:45 Patient TargetsNo targets recorded. Patient Instructions Encounter Date Encounter Id Patient Instructions Last Modified By Organization Details Last Modified Time 02/12/2023 [id number] A healthy lifestyle: care instructions [email or web address] flint Not available 02/12/2023 15:27:05 Reason for Referral None Reported. Results Created Date Observation Date Name Description Value Unit Range Abnormal Flag Note LastModifiedBy Organization Detail LastModifiedTime 01/01/2012/31/2022 LIPID PANEL cholesterol, total 264 mg/dL 100-19 9 above high normal Not Available [facility] [address] [place], [address], 01/01/2023 06:17:29 01/01/2012/31/2022 LIPID PANEL triglyceride s 90 mg/dL 0-149 Not Available [facility] Department [address] [place], [address], 01/01/2023 06:17:29 01/01/2012/31/2022 LIPID PANEL HDL cholesterol 59 mg/dL 40-999 Not Available [facility] Department [address] [place], [address], 01/01/2023 06:17:29 01/01/20 23 12/31/2022 LIPID PANEL VLDL cholesterol estella 18 mg/dL 5-40 Not Available [facility] Department [address] [place], [address], 01/01/2023 06:17:29 01/01/20 23 12/31/2022 LIPID PANEL LDL chol calc (nih) 201 mg/dL 0-99 above high normal Not Available [facility] Department [address] [place], [address], 01/01/2023 06:17:29 01/01/20 23 12/31/2022 COMP. METAB OLIC PANEL (14) glucose 125 mg/dL 70-99 above high normal Not Available [facility] Department [address] [place] [address], [address], 01/01/2023 06:17:30 01/01/20 23 12/31/2022 COMP. METAB OLIC PANEL (14) BUN 13 mg/dL 6-24 Not Available [facility] Department [address] [place] [address], [address], 01/01/2023 06:17:30 01/01/20 23 12/31/2022 COMP. METAB OLIC PANEL (14) creatinine 0.71 mg/dL 0.76-1 .27 below low normal Not Available [facility] [address] [place], [address], 01/01/2023 06:17:30 01/01/20 23 12/31/2022 COMP. METAB OLIC PANEL (14) eGFR 102 >=60 Units for eGFR value s are mL/mi n/1.7 3 The eGFR Calcu latio n has not been valid ated for patie nts under the age of 18. If test resul ts are displ ayed for a patie nt under the age of 18, disre jackie that value . Not Available [facility] Department [address] [place], [address], 01/01/2023 06:17:30 01/01/20 23 12/31/2022 COMP. METAB OLIC PANEL (14) BUN/creatini ne ratio 28 01- Not Available [facility] Department [address] [place], [address], 01/01/2023 06:17:30 01/01/20 23 12/31/2022 COMP. METAB OLIC PANEL (14) sodium 140 mmol/ L 134-14 4 Not Available [facility] Department [address] [place], [address], 01/01/2023 06:17:30 01/01/20 23 12/31/2022 COMP. METAB OLIC PANEL (14) potassium 4.3 mmol/ L 3.5-5. 2 Not Available [facility] Department [address] [place], [address], 01/01/2023 06:17:30 01/01/20 23 12/31/2022 COMP. METAB OLIC PANEL (14) chloride 103 mmol/ L 96-106 Not Available [facility] Department [address] [place], [address], 01/01/2023 06:17:30 01/01/20 23 12/31/2022 COMP. METAB OLIC PANEL (14) carbon dioxide, total 21 mmol/ L 20-29 Not Available [facility] Department [address] [place], [address], 01/01/2023 06:17:30 01/01/20 23 12/31/2022 COMP. METAB OLIC PANEL (14) calcium 9.4 mg/dL 8.7-10 .2 Not Available [facility] [address] [place], [address], 01/01/2023 06:17:30 01/01/20 23 12/31/2022 COMP. METAB OLIC PANEL (14) protein, total 7.5 g/dL 6.0-8. 5 Not Available [facility] Department [address] [place], [address], 01/01/2023 06:17:30 01/01/20 23 12/31/2022 COMP. METAB OLIC PANEL (14) albumin 4.6 g/dL 3.8-4. 9 Not Available [facility] Department [address] [place], [address], 01/01/2023 06:17:30 01/01/20 23 12/31/2022 COMP. METAB OLIC PANEL (14) globulin, total 2.9 g/dL 1.5-4. 5 Not Available [facility] Department [address] [place], [address], 01/01/2023 06:17:30 01/01/20 23 12/31/2022 COMP. METAB OLIC PANEL (14) A/G ratio 2.0 1.2-2. 2 Not Available [facility] Department [address] [place] [address], [address], 01/01/2023 06:17:30 01/01/20 23 12/31/2022 COMP. METAB OLIC PANEL (14) bilirubin, total 0.4 mg/dL 0.0-1. 2 Not Available [facility] Department [address] [place] [address], [address], 01/01/2023 06:17:30 01/01/20 23 12/31/2022 COMP. METAB OLIC PANEL (14) alkaline phosphatase 89 IU/L 44-121 Not Available [facility] Department [address] [place] [address], [address], 01/01/2023 06:17:30 01/01/20 23 12/31/2022 COMP. METAB OLIC PANEL (14) AST (SGOT) 18 IU/L 0-40 Not Available [facility] Department [address] [place] [address], [address], 01/01/2023 06:17:30 01/01/20 23 12/31/2022 COMP. METAB OLIC PANEL (14) ALT (SGPT) 20 IU/L 0-32 Not Available [facility] Department [address] [place], [address], 01/01/2023 06:17:30 01/01/2012/31/2022 CBC, PLATE LET, NO DIFFE RENTI AL WBC 8.5 x10e3 /uL 3.4-10 .8 Not Available [facility] [address] [place], [address], 01/01/2023 06:17:31 01/01/2012/31/2022 CBC, PLATE LET, NO DIFFE RENTI AL RBC 4.35 x10e6 /uL 3.77-5 .28 Not Available [facility] Department [address] [place], [address], 01/01/2023 06:17:31 01/01/2012/31/2022 CBC, PLATE LET, NO DIFFE RENTI AL hemoglobin 13.0 g/dL 11.1-1 5.9 Not Available [facility] Department [address] [place], [address], 01/01/2023 06:17:31 01/01/2012/31/2022 CBC, PLATE LET, NO DIFFE RENTI AL hematocrit 41.3 % 34.0-4 6.6 Not Available [facility] Department [address] [place], [address], 01/01/2023 06:17:31 01/01/2012/31/2022 CBC, PLATE LET, NO DIFFE RENTI AL MCV 95 fL 79-97 Not Available [facility] Department [address] [place], [address], 01/01/2023 06:17:31 01/01/2012/31/2022 CBC, PLATE LET, NO DIFFE RENTI AL MCH 29.9 pg 26.6-3 3.0 Not Available [facility] Department [address] [place], [address], 01/01/2023 06:17:31 01/01/2012/31/2022 CBC, PLATE LET, NO DIFFE RENTI AL MCHC 31.5 g/dL 31.5-3 5.7 Not Available [facility] [address] [place], [address], 01/01/2023 06:17:31 01/01/2012/31/2022 CBC, PLATE LET, NO DIFFE RENTI AL RDW 13.0 % 11.5-1 4.5 Not Available [facility] Department [address] [place], [address], 01/01/2023 06:17:31 01/01/2012/31/2022 CBC, PLATE LET, NO DIFFE RENTI AL platelets 441 x10e3 /uL 150-45 0 Not Available [facility] Department [address] [place], [address], 01/01/2023 06:17:31 01/01/2012/31/2022 CBC, PLATE LET, NO DIFFE RENTI AL NRBC 0 % 0-0 Not Available [facility] Department [address] [place], [address], 01/01/2023 06:17:31 01/01/2001/01/2023 TSH RFX ON ABNOR MAL TO FREE T4 TSH 4.670 uIU/m L 0.450- 4.500 above high normal Not Available [facility] ([facility]) [address] [facility], [place], [address], 01/01/2023 08:33:38 01/01/2001/01/2023 T4F T4,free (direct) 1.30 NG/dL 0.82-1 .77 Not Available [facility] ([facility]) [address] [facility], [place], [address], 01/01/2023 08:33:39 01/21/2001/23/2023 NUSWA B BV KEN+C AND6+ CT/GC /T... atopobium vaginae Low - 0 score Not Available [facility] ([facility]) [address] [facility], [place], [address], 01/24/2023 11:16:07 01/21/20 23 01/23/2023 NUSWA B BV KEN+C AND6+ CT/GC /T... bvab 2 Low - 0 score Not Available [facility] ([facility]) [address] [facility], [place], [address], 01/24/2023 11:16:07 01/21/20 23 01/23/2023 NUA B [...] Drug Admin istra tion. Not Available [facility] ([facility]) [address] [facility], [place], [address], 01/24/2023 11:16:07 01/21/20 23 01/23/2023 NUSWA B BV KEN+C AND6+ CT/GC /T... christopher albicans, KEN Negati ve negati ve Not Available [facility] ([facility]) [address] [facility], [place], [address], 01/24/2023 11:16:07 01/21/20 23 01/23/2023 NUSWA B BV KEN+C AND6+ CT/GC /T... christopher glabrata, KEN Negati ve negati ve Not Available [facility] ([facility]) [address] [facility], [place], [address], 01/24/2023 11:16:07 01/21/20 23 01/23/2023 NUSWA B BV KEN+C AND6+ CT/GC /T... trich vag by KEN Negati ve negati ve Not Available [facility] ([facility]) [address] [facility], [place], [address], 01/24/2023 11:16:07 01/21/20 23 01/23/2023 NUSWA B BV KEN+C AND6+ CT/GC /T... chlamydia trachomatis, KEN Negati ve negati ve Not Available [facility] ([facility]) [address] [place], [address], 01/24/2023 11:16:07 01/21/20 23 01/23/2023 NUSWA B BV KEN+C AND6+ CT/GC /T... neisseria gonorrhoeae, KEN Negati ve negati ve Not Available [facility] ([facility]) [address] [place], [address], 01/24/2023 11:16:07 01/21/20 23 01/23/2023 NUSWA B BV KEN+C AND6+ CT/GC /T... hsv 1 KEN Negati ve negati ve Not Available [facility] ([facility]) [address] [place], [address], 01/24/2023 11:16:07 01/21/20 23 01/23/2023 NUSWA B BV KEN+C AND6+ CT/GC /T... hsv 2 KEN Negati ve negati ve Not Available [facility] ([facility]) [address] [place], [address], 01/24/2023 11:16:07 01/21/20 23 01/24/2023 NUSWA B BV KEN+C AND6+ CT/GC /T... C parapsilosis /tropicalis Negati ve negati ve This assay does not diffe renti ate C. tropi calis and C. parap rosaline is. Not Available [facility] ([facility]) [address] [facility], [place], [address], 01/24/2023 11:16:07 01/21/20 23 01/24/2023 NUSWA B BV KEN+C AND6+ CT/GC /T... christopher lusitaniae, KEN Negati ve negati ve Not Available [facility] ([facility]) [address] [facility], [place], [address], 01/24/2023 11:16:07 01/21/20 23 01/24/2023 NUSWA B BV KEN+C AND6+ CT/GC /T... christopher krusei, KEN Negati ve negati ve Not Available [facility] ([facility]) [address] [facility], [place], [address], 01/24/2023 11:16:07 01/21/20 23 01/21/2023 TSH RFX ON ABNOR MAL TO FREE T4 TSH - uIU/m L Test not perfo rmed. No speci men recei tiarra. Not Available [facility] ([facility]) [address] [facility], [place], [address], 01/24/2023 11:16:08 01/21/20 23 01/21/2023 HEMOG LOBIN A1C hemoglobin A1C - % Test not perfo rmed. No speci men recei tiarra. Predi abete s: 5.7 - 6.4 Diabe geo: >6.4 Glyce taylor contr ol for adult s with diabe geo: <7.0 Not Available [facility] ([facility]) [address] [place], [address], 01/24/2023 11:16:09 01/21/20 23 01/21/2023 SPECI MEN STATU S REPOR T specimen status report TNP Test not perfo rmed. No speci men recei tiarra. TEST: [id number] Hemog lobin A1c 11291 9 TSH Rfx on Abnor mal to Free T4 Not Available [facility] ([facility]) [address] [facility], [place], [address], 01/24/2023 11:16:07 02/04/20 23 02/04/2023 TSH RFX ON ABNOR MAL TO FREE T4 TSH 4.440 uIU/m L 0.450- 4.500 Not Available [facility] ([facility]) [address] [facility], [place], [address], 02/04/2023 06:17:35 02/04/20 23 02/04/2023 HEMOG LOBIN A1C hemoglobin A1C 5.9 % 4.8-5. 6 above high normal Predi abete s: 5.7 - 6.4 Diabe geo: >6.4 Glyce taylor contr ol for adult s with diabe geo: <7.0 Not Available [facility] ([facility]) [address] [facility], [place], [address], 02/04/2023 06:17:36 05/15/19 24 05/19/2023 Skin Patho logy biops y repor t pathology report.secti on heading Dermat opatho logy Report Case: [id number] Author izing Provid er: Jim Westbrook MD [facility] rasheed: 2023 12:00 AM Orderi ng Locati on: [facility] Receiv ed: 2023 12:53 PM Pathol ogist: Angie Masters MD Specim en: Skin, left upper chest Case Repor t [place] topat holog y Repor t Case: [id number] Autho rizin g Provi nikhil: Jim Serrano MD Colle cted: 05/15 12:00 AM Order ing Locat ion: [facility] Recei tiarra: 05/16 12:53 PM Patho logis t: Suzette Masters in [place] gerard MD Speci men: Skin, left upper chest 05/19 2:48 PM FIELD RESEARCH ASSISTANT [facility]ER[facility] TOPAT HOLOG Y LABOR ATORY Not [...] c descr iptio n) 05/19 2:48 PM FIELD RESEARCH ASSISTANT [facility] Elect alisha chicas rajeev d by Suzette Masters in [place] gerard MD on 024 at 2:48 PM Not Available Not Available 07/09/2024 03:33:17 05/15/19 24 05/19/2023 Skin Patho logy biops y repor t pathology report relevant history narrative AK vs BCCA. Path#[id number] Clini estella Histo ry AK vs BCCA. Path# [id number] 05/19 2:48 PM FIELD RESEARCH ASSISTANT [facility] Not [...] 4x2x1 mm. Jar 0. 05/19 2:48 PM FIELD RESEARCH ASSISTANT [facility] Not [...] kieran and revie wed. 05/19 2:48 PM FIELD RESEARCH ASSISTANT [facility] Not Available Not Available 07/09/2024 03:33:17 05/15/19 24 05/19/2023 Skin Patho logy biops y repor t service comment An high lead yarder al and public health internship al positi ve and negati ve [...] determ ined by the Dermat opatho jesse guevaar at [facility] carmina, direct ed by Dr. Neeraj Case . These tests need not be, and theref ore are not, approv ed by the [place] Food and Drug Admini strati on. The tests are used for clinic al purpos es. Juniorin g Codes Specim en Charge [place] [address] 1 Discl aimer An exter nal and [...] edda cteri stic deter mined by the [place] topat holog y Labor atory at [facility] , [facility] rasheed by Dr. Neeraj Jacobs. These tests need not be, and there fore are not, appro tiarra by the [facility] Food and Drug Admin istra tion. The tests are used for clini estella purpo ses. Brijesh ng Codes Speci [place] [id number] 1 05/19 2:48 PM FIELD RESEARCH ASSISTANT [facility]ERMA TOPAT [facility]OLOG Y LABOR AT[facility] Not Available Not Available 07/09/2024 03:33:17 05/15/19 24 05/19/2023 Skin Patho logy biops y repor t embedded images Embed ded Image s 05/19 2:48 PM FIELD RESEARCH ASSISTANT [facility] Not Available Not Available 07/09/2024 03:33:17 02/01/20 23 01/27/2023 XR, hip, unila teral No observ ation record ed. [facility] [address], [place], [address], 02/03/2023 14:15:15 Result Notes None recorded. Problems Name Problem SNOMED Code Status Onset Date Resolution Date Notes Provider Name and Address Organization Details Recorded Time Acute bronchitis 31152056 Active 2017 Carlos Fuller PA-C Attn: Pancho ponce,[address] [facility], [place], [address], [place] [facility] 8 18:08:56 Attention deficit hyperactivi ty disorder, predominant ly inattentive type 52492111 Active 2017 Carlos Fuller PA-C Attn: Accountin g,[address] [facility], [place], [address], [place] [facility] 8 18:24:48 Pain of left hip joint 1203973122011 00 Active 2017 Carlos Fuller PA-C Attn: Accountin g,[address] [facility], [place], [address] [facility] 8 17:17:31 Fibromyalgi a 859240114 Active 2017 Carlos Fuller PA-C Attn: Accountin g,[address] [facility], [place], [address], [place] [facility] 8 17:38:52 Allergic reaction to insect bite Active 2017 Carlos Fuller PA-C Attn: Accountin g,[address] [facility], [place], [address] [facility] 8 17:43:26 Obese 095893005 Active 2017 Carlos Fuller PA-C Attn: Accountin g,[address] [facility], [place], [address] [facility] 8 22:44:50 Gastroesoph ageal reflux disease 292957610 Active 2017 Carlos Fuller PA-C Attn: Accountin g,[address] [facility], [place], [address], [place] [facility] 8 18:31:17 Dysuria 15776697 Active 2018 Carlos Fuller PA-C Attn: Accountin g,[address] [facility], [place], [address], [place] [facility] 9 17:38:38 Insomnia 955374310 Active 2018 Carlos Fuller PA-C Attn: Accountin g,[address] [facility], [place], [address] [facility] 9 17:23:14 Constipatio n 84726051 Active 2018 Carlos Fuller PA-C Attn: Accountin g,[address] [facility], [place], [address], [place] [facility] 9 12:56:04 Chronic idiopathic constipatio n 33122406 Active 2018 Carlos Fuller PA-C Attn: Accountin g,[address] [facility], [place], [address] [facility] 9 12:57:56 Urinary incontinenc e 280493226 Active 2018 Carlos Fuller PA-C Attn: Accountin g,[address] [facility], [place], [address], [place] [facility] 9 13:00:27 Acute sinusitis 86402412 Active 2018 Carlos Fuller PA-C Attn: Accountin g,[address] [facility], [place], [address], [place] [facility] 9 10:37:28 COVID-19 184222303 Active 2019 Carlos Fuller PA-C Attn: Accountin g,[address] [facility], [place], [address] [facility] 0 12:09:12 Pneumonia caused by SARS-CoV-2 9866102575460 17337 Active 2019 Carlos Fuller PA-C Attn: Accountin g,[address] [facility], [place], [address], [place] [facility] 0 12:10:01 Hyperlipide fermín 96520817 Active 2020 Carlos Fuller PA-C Attn: Accountin g,[address] [facility], [place], [address], [place] [facility] 1 10:51:41 High hemoglobin A1c level 485476858 Active 2020 Carlos Fuller PA-C Attn: Accountin g,[address] [facility], [place], [address], [place] [facility] 1 14:10:38 Nausea 533946041 Active 2021 Carlos Fuller PA-C Attn: Accountin g,[address] [facility], [place], [place], [address] [place] [address] 2, [place] [facility] 2 12:21:19 Prolapsed cervical interverteb ral disc 040005050 Active 2021 Carlos Fuller PA-C Attn: Accountin g,[address] [facility], [place], [address] [facility] 2 16:01:02 Low back pain 273847790 Active Carlos Fuller PA-C Attn: Accountin g,[address] [facility], [place], [address], [place] [facility] 6 14:02:41 Plantar fasciitis 362544486 Active Carlos Fuller PA-C Attn: Accountin g,[address] [facility], [place], [address], [place] [facility] 5 18:51:17 Herpes simplex 55906886 Active Carlos Fuller PA-C Attn: Accountin g,[address] [facility], [place], [place], [address] [place] [address] 2, [place] [facility] 5 12:49:48 Multiple actinic keratoses 305439128 Active Carlos Fuller PA-C Attn: Accountin g,[address] [facility], [place], [address], [place] [facility] 5 11:54:23 Fracture of ankle 47361977 Active Carlos Fuller PA-C Attn: Accountin g,[address] [place], [address] [facility] 5 12:49:48 Hypothyroid ism 12103149 Active Carlos Fuller PA-C Attn: Accountin g,[address] [facility], [place], [address], [place] [facility] 6 10:44:46 Acute urinary tract infection 669306052 Active Carlos Fuller PA-C Attn: Accountin g,[address] [facility], [place], [address], [place] [facility] 6 17:18:27 Vitamin B12 level below reference range 761245949 Active Carlos Fuller PA-C Attn: Accountin g,[address] [facility], [place], [address], [place] [facility] 6 12:43:51 Vitamin D deficiency 05555734 Active Carlos Fuller PA-C Attn: Accountin g,[address] [facility], [place], [address], [place] [facility] 6 12:51:01 Anemia 437868523 Active Carlos Fuller PA-C Attn: Accountin g,[address] [facility], [place], [address], [place] [facility] 6 12:51:01 Vaginitis and vulvovagini tis Active Carlos Fuller PA-C Attn: Accountin g,[address] [facility], [place], [address], [place] [facility] 6 17:18:27 Upper respiratory infection 09829254 Active Carlos Fuller PA-C Attn: Accountin g,[address] [facility], [place], [address], [place] [facility] 6 12:00:46 Bronchitis 17843745 Active Carlos Fuller PA-C Attn: Accountin g,[address] [facility], [place], [address], [place] [facility] 6 14:31:51 Vertigo 998591956 Active Carlos Fuller PA-C Attn: Accountin g,[address] [place], [address] [facility] 6 18:12:53 Allergic rhinitis 87512814 Active 2016 Carlos Fuller PA-C Attn: Pancho ponce,[address] [place], [address] [facility] 7 17:10:30 Screening for disorder Active 2016 Carlos Fuller PA-C Attn: Pancho ponce,[address] [place], [address], [place] [facility] 7 17:13:58 Depressive disorder 87698466 Active 2016 Carlos Fuller PA-C Attn: Pancho ponce,[address] [place], [address] [facility] 7 16:59:29 Sinusitis 66815490 Active 2016 Carlos Fuller PA-C Attn: Pancho ponce,[address] [place], [address] [facility] 7 16:10:10 Problem Notes None recorded. Medical Equipment None Reported. Allergies Allergen ID Allergen Name Allergen Category Reaction Reaction Severity Criticality Documentation Date Start Date Code Code System Note Provider Name and Address Organization Details Recorded Time 56238 Substance with sulfonami de structure and antibacte rial mechanism of action (substanc e) medicatio n edema moderate Not available 05/20/20162016 [id number] SNSHARON Masters LPN null, [place] - [...] Not Available Not Available BD Regular Bevel Coalgood 18 gauge x 1 active Not Available [...] DateTime 07/22/2023 165.1 cm Orquidea Lira on, [facility] 07/22/2023 11:24:22 Date Recorded Body height Body mass index (BMI) Body weight Oxygen saturation Oxygen saturation in Arterial blood by Pulse oximetry Heart rate Systolic And Diastolic Provider Name and Address Organization Details Last Updated DateTime 3 165.1 cm 30.5 kg/m2 69950.4 g 98 % 98 % 81 /min 122/78 mm[Hg] Therese Jessica MA [facility] 3 12:20:19 Date Recorded Body height Body mass index (BMI) Body weight Oxygen saturation Oxygen saturation in Arterial blood by Pulse oximetry Heart rate Respiratory rate Systolic And Diastolic Provider Name and Address Organization Details Last Updated DateTime 3 165.1 cm 30.1 kg/m2 60070.2 2 g 98 % 98 % 80 /min 18 /min 122/78 mm[Hg] Therese Jessica MA [facility] 3 11:47:44 Date Recorded Body height Body mass index (BMI) Body weight Oxygen saturation Oxygen saturation in Arterial blood by Pulse oximetry Heart rate Systolic And Diastolic Provider Name and Address Organization Details Last Updated DateTime 3 165.1 cm 31.8 kg/m2 19978.1 4 g 99 % 99 % 75 /min 130/80 mm[Hg] Therese Jessica MA [facility] 3 14:26:08 Date Recorded Body height Body mass index (BMI) Body weight Oxygen saturation Oxygen saturation in Arterial blood by Pulse oximetry Heart rate Systolic And Diastolic Provider Name and Address Organization Details Last Updated DateTime 3 165.1 cm 31.3 kg/m2 54455.3 7 g 99 % 99 % 77 /min 128/80 mm[Hg] Therese Jessica [place] [facility] 3 12:05:08 Social History Question Answer Notes LastModified by Organizat ion Details LastModified Time Tobacco Smoking Status Former Smoker Quit in 2001 JUDAH Scott, [place] [facility] 02/07/2015 12:24:56 What Was The [...] virus, quadrivalent, preservative 5 completed Not Available [facility] 05/29/2019 02:44:47 Past Encounters Encounter ID Performer Location Encounter Start Date Encounter Closed Date Diagnosis/Indication Diagnosis SNOMED-CT Code Diagnosis ICD10 Code Diagnosis Note [id number] ANIA Tripathi (Adult Med) [address] [place] [address] 75586-451 0 02/07/2015 12:05:26 02/07/2015 17:12:59 Herpes simplex 47295238 positive for one year . no outbreaks Multiple a ctinic keratoses 762557376 Fracture of ankle 80765293 June 2014, no pins. Hypothyroidism 60968122 Screening for disorder 867934744 exposed to 2 guys she dated had hepatitis c , neg x 3 . 4 months ago last test Active or passive immunization 192873867 [id number] MD Leon Ramirez (Adult Med) [address] [place] [address] [phone] 0 03/07/2015 11:33:27 03/07/2015 17:55:17 Hypothyroidism 45854401 E03.9 Active or passive immunization 865775502 Z23 Low back pain 830893463 M54.5 Multiple a ctinic keratoses 014342494 L57.0 [id number] ANIA Tripathi (Adult Med) [address] [place] [address] 56010-270 0 05/31/2015 11:23:49 05/31/2015 16:06:21 Hypothyroidism 09301383 E03.9 Low back pain 360140117 M54.5 Vitamin B1 2 level below reference range 802320653 R79.9 Vitamin D deficiency 347 76014 E55.9 Anemia 632034777 D64.9 [id number] ANIA Tripathi (Adult Med) [address] [place] [address] [id number] 0 07/24/2015 12:09:21 07/24/2015 14:58:46 Anemia 156114889 D64.9 Vitamin B1 2 level below reference range 582233136 R79.9 Hypothyroidism 25521238 E03.9 Low back pain 488079588 M54.5 Vitamin D deficiency 347 88654 E55.9 [id number] ANIA Tripathi (Adult Med) [address] [place] [address] 75625-734 0 10/16/2015 12:03:45 10/17/2015 10:01:03 Hypothyroidism 02522573 E03.9 Anemia 594358921 D64.9 Low back pain 038090288 M54.5 Vitamin D deficiency 347 40375 E55.9 [id number] MD Leon Ramirez (Adult Med) [address] [place] [address] 54189-644 0 03/22/2016 10:08:58 03/22/2016 11:25:13 Low back pain 392192057 M54.5 Vitamin D deficiency 347 95902 E55.9 Hypothyroidism 56454333 E03.9 Anemia 735916851 D64.9 Vitamin B1 2 level below reference range 475257818 R79.9 [id number] MD Leon Ramirez (Adult Med) [address] [place] [address] 26272-198 0 11/07/2016 16:24:05 11/08/2016 09:31:39 Hypothyroidism 78877451 E03.9 Vitamin D deficiency 347 01421 E55.9 Vitamin B1 2 level below reference range 079951307 R79.9 Low back pain 094075937 M54.5 Allergic rhinitis 240194 04 J30.9 Screening for disorder 273973631 Z13.9 exposed to 2 guys she dated had hepatitis c , neg x 3 . 4 months ago last test [id number] Shelly Mu[facility]iz [facility] [address] [place] [address] [id number] 0 03/20/2017 16:21:58 03/24/2017 16:48:46 Depressive disorder 38960468 F32.89 Allergic rhinitis 064077 04 J30.9 Low back pain 978033830 M54.5 Vitamin D deficiency 347 54587 E55.9 Hypothyroidism 93766962 E03.9 [id number] Shelly Muñiz MD [facility] (Adult Med) [address] [place] [address] [id number] 0 07/18/2017 17:48:38 07/22/2017 10:23:26 Acute bronchitis 85885832 J20.9 Depressive disorder 3548 9007 F32.89 Attention deficit hyperactivity disorder, 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 Hypothyroidism 82865060 E03.9 Vitamin D deficiency 347 88903 E55.9 [id number] Shelly Muñiz MD Leon (Adult Med) [address] [place] [address] 01575-216 0 10/10/2017 16:57:01 10/10/2017 17:26:54 Pain of left hip joint 4337944525 71624 M25.591 [id number] MD Leon Ramirez (Adult Med) [address] [place] [address] 99655-532 0 01/05/2018 16:43:27 01/06/2018 08:28:00 Fibromyalgia 853349769 M79.7 Allergic r eaction to insect bite 683012347 T78.40XA Depressive disorder 3548 9007 F32.89 Vitamin D deficiency 347 42215 E55.9 Obese 089940309 E66.9 Pain of le ft hip joint 2583908232 11477 M25.552 Plantar fasciitis 784995 [address] mora Low back pain 730119468 M54.5 Hypothyroidism 05428782 E03.9 [id number] MD Leon Ramirez (Adult Med) [address] [place] [address] 77233-784 0 02/17/2018 18:03:14 02/19/2018 16:00:35 Fibromyalgia 129106462 M79.7 Gastroesop hageal reflux disease 937905213 K21.9 Anemia 511308024 D64.9 Vitamin D deficiency 347 43773 E55.9 Hypothyroidism 25500126 E03.9 Obese 002344547 E66.9 Depressive disorder 3548 9007 F32.89 Low back pain 812540944 M54.5 [id number] MD Leon Ramirez (Adult Med) [address] [place] [address] 08592-044 0 12/15/2018 16:42:56 12/16/2018 09:36:06 Attention deficit hyperactivity disorder, predominantly inattentive type 45625559 F90.0 Depressive disorder 3548 9007 F32.89 Hypothyroidism 76338439 E03.9 Vitamin D deficiency 347 28075 E55.9 Fibromyalgia 613389301 M 79.7 Insomnia 518628789 G47.0 0 Pain of le ft hip joint 8408549154 81953 M25.158 [id number] MD Leon Ramirez (Adult Med) [address] [place] [address] 73067-390 0 01/08/2019 12:10:38 01/08/2019 14:41:57 Constipation 56385275 K59.00 Chronic id iopathic constipation 02208477 K59.04 Urinary incontinence 165 818334 R32 Depressive disorder 3548 9007 F32.89 Insomnia 625048128 G47.0 0 Gastroesop hageal reflux disease 636671636 K21.9 Vitamin D deficiency 347 93728 E55.9 Hypothyroidism 40619152 E03.9 Allergic rhinitis 250513 04 J30.9 [id number] MD Leon Ramirez (Adult Med) [address] [place] [address] [id number] 0 01/19/2019 11:04:08 01/20/2019 09:47:44 Pain of left hip joint 4186846367 13092 M25.552 Insomnia 448721988 G47.0 0 Gastroesop hageal reflux disease 898672581 K21.9 Depressive disorder 3548 9007 F32.89 Allergic rhinitis 952411 04 J30.9 Anemia 914947526 D64.9 Low back pain 006566248 M54.5 Vitamin D deficiency 347 02885 E55.9 Hypothyroidism 01301327 E03.9 [id number] Shelly Mu[facility]Adult [facility] [address] [place] [address] 28960-085 0 01/07/2020 16:55:41 01/10/2020 17:55:49 Low back pain 692080183 M54.5 Gastroesop hageal reflux disease 660008797 K21.9 Urinary incontinence 165 077712 R32 Chronic id iopathic constipation 53832731 K59.04 Insomnia 658357454 G47.0 0 Fibromyalgia 188281820 M 79.7 Depressive disorder 3548 9007 F32.89 Allergic rhinitis 775353 04 J30.9 Vitamin B1 2 level below reference range 092652204 R79.9 Vitamin D deficiency 347 28521 E55.9 Hypothyroidism 20986896 E03.9 [id number] [facility] [address] [place] [address] [id number] 0 03/08/2020 12:14:02 03/09/2020 11:30:27 COVID-19 625509619 U07.1 Discussed with patient, agreed to try medication s as ordered, also been advised to go to close ER any time for any concern. [id number] MD Leon Ramirez (Adult Med) [address] [place] [address] 89250-225 0 07/21/2020 08:11:40 07/21/2020 11:08:19 Allergic rhinitis 59178119 J30.9 Anemia 525349423 D64.9 Attention deficit hyperactivity disorder, predominantly inattentive type 78943709 F90.0 Chronic id iopathic constipation 67238152 K59.04 Vitamin B1 2 level below reference range 628660930 R79.9 Depressive disorder 3548 9007 F32.89 Fibromyalgia 350096113 M 79.7 Gastroesop hageal reflux disease 752849400 K21.9 Hypothyroidism 31409715 E03.9 Insomnia 765543554 G47.0 0 Low back pain 217209878 M54.5 Vitamin D deficiency 347 68747 E55.9 Hyperlipidemia 82899462 E78.5 [id number] MD Leon Ramirez (Adult Med) [address] [place] [address] 50663-285 0 08/15/2021 12:00:06 08/16/2021 11:19:22 Sinusitis 70600552 J32.9 Low back pain 188769466 M54.[address] Fuller is out of the office, to prevent interrupti on of therapy and withdrawal , I have refilled the Hydrocodon eILPMP reviewedUD S neededCDA 01/18/2019 Acute sinusitis 30404025 J01.90 Allergic rhinitis 003297 04 J30.9 Insomnia 152411010 G47.0 0 Gastroesop hageal reflux disease 063476486 K21.9 Nausea 360465799 R11.0 Hypothyroidism 23753238 E03.9 High hemog lobin A1c level 787905954 R73.09 Hyperlipidemia 12155996 E78.5 Vitamin B1 2 level below reference range 400569768 R79.9 Depressive disorder 3548 9007 F32.89 Fibromyalgia 332654346 M 79.7 Vitamin D deficiency 347 51601 E55.9 [id number] MD Leon Ramirez (Adult Med) [address] [place] [address] 88552-331 0 02/26/2022 10:38:25 02/27/2022 13:14:17 Acute bronchitis 84571234 J20.9 Allergic rhinitis 789948 04 J30.9 Vitamin B1 2 level below reference range 108700222 R79.9 Fibromyalgia 152217064 M 79.7 Gastroesop hageal reflux disease 411835617 K21.9 Hyperlipidemia 13397318 E78.5 Hypothyroidism 96352418 E03.9 Insomnia 339496318 G47.0 0 Prolapsed cervical intervertebral disc 384425563 M50.20 Vitamin D deficiency 347 12900 E55.9 [id number] MD Leon Boyd (Adult Med) [address] [place] [address] 92280-590 0 07/02/2022 10:51:52 07/03/2022 10:26:01 Obesity 248989756 E66.9 Depression screening 171 315279 Z13.31 1 Acute otit is externa of right ear 0075115040 805845 H60.501 Gastroesop hageal reflux disease without esophagitis 010830854 K21.9 Chronic cough 79732539 R 05.3 Dyspnea 275772480 R06.00 Continue Albuterol inhaler as needed. Acute bact erial sinusitis 89002619 J01.90 Adjustment disorder with depressed mood 30608974 F43.21 Body mass index 30+ - obesity 437789539 Z68.30 [id number] [facility] [address] [place] [address] 46796-575 0 12/30/2022 14:58:21 01/03/2023 10:28:36 Obesity 226366395 E66.9 Pain of ri ght hip joint 6951491184 59166 M25.551 Proceed with x-ray for further evaluation . Follow up in two weeks. Hypothyroidism 40001140 E03.9 Has not been taking medication . Will return tomorrow morning for fasting labs and TSH. Difficulty sleeping 3013 98097 Z72.820 Hyperlipid emia screening 868622829 Z13.104 [id number] [facility] [address] [place] [address] 09879-565 0 01/20/2023 12:10:13 01/21/2023 10:31:52 Abnormal vaginal odor 82828150 N89.8 Serous otitis media 8032 7007 H65.01 [...] will follow up in two weeks. Hyperglycemia 52259116 R 73.9 Elevated fasting glucose. Will check Hemoglobin A1C. Serum thyr oid stimulating hormone level outside reference range 516208451 R89.1 Patient would like to be treated with thyroid medication . TSH was barely elevated. Will repeat TSH. Hypercholesterolemia 136 43469 E78.00 LDL greater than 190. Will start high dose lipid. Repeat chlolester ol and check LFTs in eight weeks. Pain of ri ght hip joint 2368221592 03411 M25.551 Will get right hip xray. Will get records from pain management person. Painful mouth 901969614 K13.79 Unsure of etiology. Some symptoms sounded [...] or if she develops any skin lesions. [id number] MD Leon Boyd (Adult Med) [address] [place] [address] 31119-135 0 02/03/2023 11:36:46 02/10/2023 13:07:39 Laboratory test result abnormal 107636853 R89.9 Plantar fa sciitis of left foot 0661193426 2245550 M72.2 Will follow up with specialist for possible injection Trochanter ic bursitis of right hip 1299031100 85448 M70.61 Seeing automotive painter helper . Will work on weight loss and diet control which could be contributi ng factors. Discussed with patient. Hyperglycemia 66710229 R 73.9 Elevated fasting glucose. Will check Hemoglobin A1C. Discussed diet. Consider Ozempic which will help with weight loss and glucose. Follow up in one to two weeks. Body mass index 30+ - obesity 966041690 Z68.30 Discussed diet. Patient is unable to do much exercise at this time due to pain. Mentioned the Mediterran yu diet. Consider putting her back on Ozempic which has helped with weight loss in the past and will help with glucose control. Anxiety 70303805 F41.9 Patient appears anxious. Somewhat rapid speech. Discuss further at follow up. [id number] MD Leon Boyd (Adult Med) [address] [place] [address] 30639-613 0 02/12/2023 14:03:12 02/21/2023 13:49:58 Bipolar disorder 44868776 F31.9 Advised her to make sure to keep regular appointmen ts with her psychiatri st and continue to discuss her concerns about impulsive behavior. Hyperglycemia 76201171 R 73.9 Elevated fasting glucose just at borderline of prediabete s and diabetes and Hemoglobin A1C was prediabete s. Patient is going to work on diet. Will start patient on Ozempic for glucose control and weight loss. Body mass index 30+ - obesity 349174092 Z68.30 Elevated BMI and elevated fasting glucose at borderline for diabetes. Will start patient on Ozempic for weight control and glucose control. Patient has taken this medication before. Will also work on diet. Follow up in one month. Anxiety 70093217 F41.9 Adjustment disorder with mixed emotional features 81865565 F43.23 We discussed the episodes of vomiting and passing out. These followed a very stressful event and were likely related to extreme anxiety and panic causing nausea and vomiting followed by vasovagal. She will let me know if she has any further episodes. [id number] [facility] [address] [place] [address] 19665-017 0 03/14/2023 11:50:53 03/18/2023 11:49:17 Body mass index 30+ - obesity 826775753 Z68.30 Started Ozempic. Continue to work on Diet. Recommend Mediterran yu diet. Follow up in one month. Reduced libido 6873240 R 68.82 Will get records from other provider. Will check on reasons for treating with Allopurino l. Explained to patient that it will not work for her to have two primary care providers and she does understand that. She said she sees this provider for her women's health care. Hypothyroidism 17768130 E03.9 Most recent TSH normal. Continue present thyroid medication . Bipolar disorder 7989500 4 F31.9 Strongly encouraged patient to make [...] appointmen t she can let me know. [id number] MD Leon Boyd (Adult Med) [address] [place] [address] 73674-631 0 07/22/2023 11:06:49 07/24/2023 21:13:32 Drug abuse 05966363 F19.10 Going to rehab today. Follow up with me after rehab. Difficulty sleeping 3013 31960 Z72.820 Continue Trazadone to help with sleep. Hypercholesterolemia 136 63232 E78.00 Needs refill on cholestero l medication . Will need to repeat lipids and LFTs once she follows up when she is out of rehab. Gastroesop hageal reflux disease without esophagitis 584899170 K21.9 Needs refill on Omeprazole . Hyperglycemia 00830698 R 73.9 Tolerating Ozempic well. Increase to .5 mg weekly. Dyspnea 459548043 R06.00 Continue Albuterol inhaler as needed. Acute bronchitis 6524443 2 J20.9 Health Concerns Section Related Observation LastModified by Organization Detai ls LastModified Time None Recorded Concern Status LastModified by Organization Details LastModified Time None Recorded Advance Directives Directive None Recorded Payers Insurance Date Sequence Insurance Name Policy Number Policy Barth Covered Member ID Barth Member ID Guarantor Name 12/30/2022 2 *SELF PAY* Pa wendi Ferrell 12/30/2022 1 [facility] (O) [id number] Hope Ferrell [id number] Hope Ferrell 12/30/2022 1 [facility] Hope Ferrell [id number] Hope Ferrell 12/30/2022 1 [facility] (POS) Hope Ferrell [id number] Hope Ferrell 12/30/2022 1 [employer] [id number] Hope Ferrell [id number] Hope Ferrell 12/30/2022 1 [facility] - D[facility] OPT[facility] (MEDICARE - MEDICAID REPLACEMENT HMO) [id number] Hope Wnag [id number] Hope Ferrell 08/11/2023 1 [facility] (MEDICAID HMO) [id number] Hope Wang [id number] Hope Ferrell 12/30/2022 1 [facility] - DOS PRIOR TO 2020 (MEDICAID REPLACEMENT - HMO) Hope Ferrell [id number] Hope Ferrell 12/30/2022 1 [facility] (PPO) [id number] Hope Ferrell [id number] Hope Ferrell 12/30/2022 1 [facility] [id number] Hope Ferrell [id number] Hope Ferrell 07/07/2024 1 [facility] [id number] Enrique Ferrell [id number] Hope Ferrell Notes Date Note Type Note [...] stress right now, recently got back from [place] Ele Green MD Attn: Accounting[address] [place], [address], [facility] 01/20/2023 17:42:27 02/03/2023 text/html follow up, concerned [...] resolved Ele Green MD Attn: Accounting[address] [place], [address], [facility] 02/06/2023 13:38:13 02/12/2023 text/html had a difficult [...] psychiatrist, Ele Green MD Attn: Accounting[address] [place], [address], [facility] 02/12/2023 17:40:41 03/14/2023 text/html started a new [...] Green MD Attn: Accounting[address] [place], [address], [facility] 03/14/2023 13:15:43 07/22/2023 text/html rough last few [...] ears Ele Green MD Attn: Accounting,[address] [facility], [place], [address], [facility] 07/22/2023 12:08:21 OBGyn Episode No OBEpisode recorded.
--- OUTSIDE RECORDS SUMMARY | 2024-11-17 17:11 | XMS_ITS | Clinical Summary ---
Author Organization [facility] Address [facility] [place] [address] Care Team Providers Care Chronic Care Nurse Name Role Phone Ele Green MD Primary Care Provider [phone] Allergies Active Allergy Reactions Criticality Noted Date [...] on file Legal Sex Female 7:02 AM [employer] Gender Identity Not on file Sexual Orientation Not on file Obstetrics History Last Filed Vital Signs Vital Sign Reading Time Taken Comments Blood Pressure 101/61 09/13/2022 12:42 PM CDT Pulse 98 09/13/2022 12:42 PM CDT Temperature 36.5 C (97.7 F) 09/13/2022 12:42 PM CDT Respiratory Rate 18 07/01/2023 9:00 AM [employer] Oxygen Saturation 96% 09/13/2022 12:42 PM CDT room air Inhaled Oxygen Concentration - - Weight 83.5 kg (184 lb) 07/01/2023 9:00 AM [employer] Height 162.6 cm (5' 4) 07/01/2023 9:00 AM [employer] Body Mass Index 31.58 07/01/2023 9:00 AM [employer] Plan of Treatment Health Maintenance Due Date [...] (Season Ended) 2025 01/28/2017, 01/23/2016, 02/07/2015 Insurance [facility] Member Subscriber Plan / Payer (Ef fective 2022-Present) Name:Hope Barnett Relation to Subscriber:Spouse Name:ENRIQUE BARNETT Date of :1965 (Home) Address: [address] [place] [address] Payer ID:[id number] (NAIC) Type:[facility] HMO/PPO Address: [place] [phone] Care Teams Chronic Care Nurse Relationship Specialty Start Date End Date Ele Green MD PCP - General Emergency Medicine 07/11/22
--- NOTE | 2024-11-17 17:14 | ED.URI ---
HPI - URI/Sore Throat General Chief Complaint: Upper Respiratory Infection Stated Complaint: Sore throat / Ear Pain Time Seen by Provider: 11/17/24 17:14 Source: patient Mode of arrival: ambulatory Limitations: no limitations History of Present Illness HPI Narrative: Hope is a 54-year-old female patient presenting to the clinic today with complaints of low-grade fever, sinus congestion, sinus pressure, sore throat, and bilateral ear pain x1 0.5 weeks. She is currently taking Keflex for UTI. States that she has developed fever over the last few days. No fever today. Has been taking DayQuil and NyQuil for her symptoms. Coughing up some green phlegm and blowing out green discharge. Denies any chest pain or shortness of breath. Also reports vaginal itching and burning from antibiotics and think she has a yeast infection. Has been completing [id number]-[id number] treatment with some relief. Related Data Home Medications ?Medication ?Instructions ?Recorded ?Confirmed ?Last Taken ?Type semaglutide 1 mg/dose (4 mg/3 mL) 1 mg subcut WEEKLY 07/01/22 01/29/24 01/25/24 History subcutaneous pen injector (Ozempic) syringe with needle 3 mL 18 x 1 04/01/23 01/29/24 Unknown History 1/2 (BD Luer-Mulu Syringe) testosterone cypionate 200 mg/mL 50 mg IM [id number] 04/01/23 01/29/24 Unknown History intramuscular oil estradiol cypionate 5 mg/mL 0.5 mg IM [id number] 05/31/23 01/29/24 Unknown History intramuscular oil (Depo-Estradiol) lumateperone 10.5 mg capsule 21 mg PO HS 05/31/23 01/29/24 01/28/24 History (Caplyta) omeprazole 20 mg capsule,delayed 40 mg PO HS 05/31/23 01/29/24 01/28/24 History release progesterone micronized 100 mg 100 mg PO HS 11/12/23 01/29/24 01/28/24 History capsule cyanocobalamin (vitamin B-12) 1,000 mcg IM WEEKLY 01/29/24 01/29/24 01/26/24 History 1,000 mcg/mL injection solution dextroamphetamine-amphetamine ER PO 06/16/24 Unknown History 15 mg 24hr capsule,extend release acyclovir 800 mg tablet mg 11/09/24 Unknown History spironolactone 100 mg tablet mg 11/17/24 Unknown History Allergies Allergy/AdvReac Type Severity Reaction Status Date / Time Sulfa (Sulfonamide Allergy Mild Itching Verified 11/17/24 17:20 Antibiotics) Review of Systems Review of Systems: Pertinent positives per HPI. Patient denies any rash, visual changes, dizziness, shortness of breath, chest pain, palpitations, nausea, vomiting, diarrhea, constipation, abdominal pain, or any urinary issues. [facility], [facility] Past Medical History Medical History Venous anomaly Constipation Vomiting Abnormal CT of the abdomen Diabetes states is prediabetic Pneumonia due to COVID-19 virus COVID-28 February 2020 Bronchitis Bipolar 1 disorder Surgical History Surgical History H/O tubal ligation H/O partial thyroidectomy Hx of tonsillectomy Family History Family History Father Family history of Parkinson's disease Social History Social History Years smoked: 3 Smoking status: Current every day smoker Tobacco type: e-cigarettes/vaping Smoking end date: 05/12/01 Additional smoking assessment comments: VAPING FOR 8 YEARS Alcohol intake: current Drinks per week: 1 Substance use: former Substance use type: crack/cocaine Other substance usage details: Daily Last use: takes hydrocodone for chronic back pain Do You Feel Safe in your Home?: Yes Lack of Transportation: No Lack of Food: Never True Current Housing: I Have Housing Concerned About Future Housing: No Difficulty Paying Gas/Electric Bills: No Difficulty Paying for Meds: No Currently Unemployed: No Education: High School Diploma/GED Difficulty w/ Childcare or Family Care: No Living arrangements: with family Gender identity (if verbalized by the patient): Female Spiritual care concerns: No Comments At the time of my signature, I reviewed and agree with the nursing past medical, surgical, social, and family history. There is no relevant family history pertinent to the patient complaint. Exam Narrative: General: Well-developed, well nourished, in no apparent distress Head: Normocephalic, atraumatic Eyes: Pupils equally round and reactive to light bilaterally, EOM intact, sclera and conjunctive clear, no discharge, lids normal Ears: TMs intact and clear, ear canals clear, no drainage, grossly hearing normal. Nose: Nares patent, green nasal discharge, moderate inflammation, maxillary sinus tenderness. Mouth: Oral pharynx red without lesions or masses, good dentition, MMM. Postnasal drip Neck: Supple, trachea midline, no enlargement of anterior or posterior cervical nodes, no thyroid masses or goiter palpable. Cardio: Regular rate and rhythm, s1 and s2 normal, no murmur appreciated. Resp: Clear to auscultation bilaterally, no rhonchi, rales, wheezing or rubs Course Course Emergency Course: Portions of this record may have been created with voice recognition software. Level of Care: Express Care Visit Vital Signs Vital signs: Vital Signs Temperature 36.5 C 11/17/24 17:18 Pulse Rate 71 11/17/24 17:18 Respiratory Rate 18 11/17/24 17:18 Blood Pressure 110/77 11/17/24 17:18 Pulse Oximetry 100 11/17/24 17:18 Oxygen Delivery Room Air 11/17/24 17:18 Temperature 36.5 C 11/17/24 17:18 Pulse Rate 71 11/17/24 17:18 Respiratory Rate 18 11/17/24 17:18 Blood Pressure 110/77 11/17/24 17:18 Pulse Oximetry 100 11/17/24 17:18 Oxygen Delivery Room Air 11/17/24 17:18 Vital signs reviewed MDM - URI/Sore Throat MDM Narrative Medical decision making narrative: At the time of visit patient is resting comfortably on the exam table. Patient appears to be nontoxic. Labs: Strep test was negative in the clinic today. Plan: I suspect patient has sinus infection/pharyngitis. Will have patient stop the Keflex and start Augmentin as this was sensitive to her urine culture. Will also place her on prednisone and Diflucan. Supportive measures were discussed with the patient and they voiced understanding discharge instructions and agrees to treatment plan. Return precautions reviewed Differential Diagnosis Differential diagnosis: Likely sinusitis, viral infection, influenza and pharyngitis Lab Data Labs: Lab Results 11/17/24 Range/Units 17:23 POC Grp A Strep Screen Negative (Negative) Discharge Plan Discharge Clinical Impression: Acute bacterial rhinosinusitis, Vaginal yeast infection Pharyngitis Qualifiers: Pharyngitis/tonsillitis etiology: unspecified etiology Qualified Code(s): J02.9 - Acute pharyngitis, unspecified Patient Disposition: Home Condition: Stable Instructions: Antibiotic Form, Pharyngitis (ED), Yeast Infection (ED), Rhinosinusitis (ED) Additional Instructions: Strep test was negative in the clinic today. Take prescription medications only as prescribed-Augmentin, Diflucan, and prednisone Increase fluids and stay well hydrated Tylenol/motrin for pain/fever Flonase and OTC antihistamines as directed Vicks vapor rub to open sinuses Sinus rinses for congestion Cepacol spray, cough drops, throat lozenges, warm tea with honey/lemon, gargle salt water to soothe throat BRAT diet for diarrhea Clear liquids x 24 hours then advance as tolerated for nausea/vomiting Go to the ED if you develop a worsening in your condition- high fever not controlled by Tylenol or Motrin, dehydration, weakness, lethargy, shortness of breath, or chest pain. Follow up with your PCP in 3-5 days if symptoms persist. Patient Language: Japanese Prescriptions: New fluconazole 150 mg tablet 150 mg PO ONCE Qty: 2 0RF Rx Instructions: as a single dose. May repeat in 72 hours if needed. prednisone 20 mg tablet 40 mg PO DAILY 5 Days Qty: 10 0RF amoxicillin-pot clavulanate 875-125 mg tablet 1 tablet PO Q12H 10 Days Qty: 20 0RF No Action Caplyta 10.5 mg capsule 21 mg PO HS omeprazole 20 mg capsule,delayed release(DR/EC) 40 mg PO HS Depo-Estradiol 5 mg/mL oil 0.5 mg IM [id number] dextroamphetamine-amphetamine 15 mg capsule,extended release 24hr PO acyclovir 800 mg tablet cephalexin 500 mg capsule 500 mg PO Q12H 7 Days Qty: 14 0RF spironolactone 100 mg tablet Ozempic 1 mg/dose (4 mg/3 mL) pen injector 1 mg SUBCUT WEEKLY (DME) BD Luer-Mulu Syringe 3 mL 18 x 1 1/2 syringe MISCELLANEOUS testosterone cypionate 200 mg/mL oil 50 mg IM [id number] cyanocobalamin (vitamin B-12) 1,000 mcg/mL solution 1,000 mcg IM WEEKLY progesterone micronized 100 mg capsule 100 mg PO HS Follow-up/Referrals: Jonny,DEBO Veras [Primary Care Provider] - Time of Disposition: 17:30 Quality NIHSS Nursing Documentation ED NIHSS nursing documentation: reviewed/agree
[2024-11-17 17:18] VITALS: BP 110/77; PULSE 71; RESP 18; TEMP 36.5; O2SAT 100
[2024-11-17 17:25] LABS: EDSTREPNEGPOS1 Negative (Negative)
== END 2024-11-17 17:34 | disposition home or self-care (01) ==
PROVIDERS: Emergency Provider Nurse Practitioner Family; PCP Physician Assistant
DX: J01.90 Acute sinusitis, unspecified (principal); B37.31 Acute candidiasis of vulva and vagina; J02.9 Acute pharyngitis, unspecified; F17.290 Nicotine dependence, other tobacco product, uncomplicated; R73.03 Prediabetes; Z86.16 Personal history of COVID-19; Z90.89 Acquired absence of other organs
CPT/HCPCS: 87880; 99213; G0463

== ENCOUNTER 2025-02-23 16:07 | Outpatient (CLI) | payer OTHER, SELFPAY ==
--- NOTE | ~2025-02-23 | CT_ITS ---
EXAMINATION: CT thoracic spine wo con COMPARISON: None HISTORY: Thoracic pain TECHNIQUE: Axial images were obtained through the spine without IV contrast. Coronal, sagittal reconstruction images were obtained from the axial views. CT scan performed using dose optimization techniques including the following automated exposure control; adjustment of mA and/or kV; use of iterative reconstruction technique. Automatic exposure control was used to reduce radiation dose. Permanent radiation dose record is archived to PACS. FINDINGS: The vertebral heights are intact. No fracture or subluxation. The disc heights are intact. Soft tissues probable hemorrhagic left renal cyst 1 x 1 cm but incompletely evaluated, outpatient renal ultrasound is recommended Impression: No acute abnormality. Reviewed, dictated and finalized at location P. Impression: No acute abnormality.
--- OUTSIDE RECORDS SUMMARY | 2025-02-23 17:40 | XMS_ITS | Encounter Summary ---
Author Organization [facility] Address [address] [place] [address] Care Team Providers Care Can Reforming Machine Operator Name Role Phone Ele Green MD Primary Care Provider [phone] Carlos Fuller Primary Care Provider + Encounter Details Date Type Department Care Team (Late st Contact Info) Description 02/02/2018 Abstract [facility] CONVERSION [address] [place] [address] , Generic ConversionMD Social History Tobacco Use [...] on filedocumented in this encounter Care Teams Can Reforming Machine Operator Relationship Specialty Start Date End Date Ele Green MD [address] [place] [phone] PCP - General EMERGENCY MEDICINE 03/10/23 11/22/24 Carlos Fuller PA [facility] [place] [address] PCP - General 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
--- OUTSIDE RECORDS SUMMARY | 2025-02-23 17:40 | XMS_ITS | Patient Health Record ---
Author Organization [facility] Address [address] [place] [address] Care Team Providers Care Handle Finisher Name Role Phone Ele Green MD Primary Care Provider Loi Crisostomo Unavailable [phone] Allergies Allergen (clinical drug ingredient) Drug/Non Drug Allergy documented on EMR Reaction Allergy Type Onset Date Status Substance with sulfonamide structure and antibacterial mechanism of action (substance) SULFA (SULFONAMIDE ANTIBIOTICS) (uncoded) Unknown Allergy 05/30/2023 Active Reason For Referral No Information Medications Medication SIG (Take, Route, Frequency, Duration) Notes Start Date End Date Status Amphetamine-Dextroam phet ER 30 MG Capsule Extended Release 24 Hour 1 capsule every morning Orally Once a day; Duration: 30 days 12/24/2024 Active Ozempic (1 MG/DOSE) 4 MG/3ML Solution Pen-injector Subcutaneous *Pick strength-form from [facility] for eRX* 06/30/2023 Active Depo-Estradiol 5 mg/mL Oil Intramuscular 06/30/2023 Active Caplyta 21 MG Capsule 1 capsule Oral Once a day; Duration: 30 days Active LUER-ASHLEY SYRINGE-NEEDLE 3 mL 25 gauge x 1 SYRINGE, EMPTY DISPOSABLE MISCELLANEOUS *Reorder from [facility] for eRx and Interaction Alerts* 06/30/2023 Active Testosterone Cypionate 200 MG/ML Solution Intramuscular 06/30/2023 Active traZODone HCl 100 MG Tablet 1 tablet Orally Once a day; Duration: 90 days As needed Active LUER-ASHLEY SYRINGE-NEEDLE 3 mL 18 x 1 1/2 SYRINGE, EMPTY DISPOSABLE MISCELLANEOUS *Reorder from [facility] for eRx and Interaction Alerts* 06/30/2023 Active Immunizations Vaccine Route Administration Date Status [...] History Observation Description Sex Assigned At Female Social History Miscellaneous: Social Info Question Answer Notes Advance Care Planning Are you your own decision-maker Yes Do you have Power of Armored Cable Machine Operator for Health or Medi estella? No Tobacco Use: Social Info Question Answer Notes Tobacco Control (Standard) Tobacco use: Former smoker How long has it been since you last smoked? Greater than 10 years Additional Details Category Social Info Options Details Migrated Social History Migrated Social History Alcohol Intake: Occasional 08/25/2019,Tobacco Years: Former smoker 08/25/2019,Smoking Status: 4 05/30/2023 Problems Problem Type SNOMED Code ICD Code Onset Dates Problem Status W/U Status Risk Notes Problem Mixed bipolar affective disorder, moderate (486362212) Bipolar disorder, current episode mixed, moderate (F31.62) Active confirmed Problem Generalized anxiety disorder (36000018) Generalized anxiety disorder (F41.1) Active confirmed Problem Primary insomnia (4376824) Primary insomnia (F51.01) Active confirmed Problem Attention deficit hyperactivity disorder (023164787) Attention-deficit hyperactivity disorder, unspecified type (F90.9) Active confirmed Vital Signs Heart Rate 78 /min 12/03/2024 Blood pressure diastolic 78 mm Hg 12/03/2024 Height-cm 170.18 cm 12/03/2024 Weight-kg 64.86 kg 12/03/2024 Height 67.00 in 12/03/2024 Blood pressure systolic 114 mm Hg 12/03/2024 Weight 143 lbs 12/03/2024 BMI 22.39 kg/m2 12/03/2024 Encounters Encounter Location Date Provider Diagnosis [facility] [address] [address] 03/26/2024 Loi Carvajal Generalized anxiety disorder F41.1 ; Bipolar disorder, current episode mixed, moderate F31.62 ; Primary insomnia F51.01 and Attention-deficit hyperactivity disorder, unspecified type F90.9 [facility], [facility] [address] [place] [address] 08/23/2024 Loi Carvajal Generalized anxiety disorder F41.1 ; Bipolar disorder, current episode mixed, moderate F31.62 ; Primary insomnia F51.01 and Attention-deficit hyperactivity disorder, unspecified type F90.9 [facility], [facility] [address] [place] [address] 12/03/2024 Loi Carvajal Generalized anxiety disorder F41.1 ; Bipolar disorder, current episode mixed, moderate F31.62 ; Primary insomnia F51.01 and Attention-deficit hyperactivity disorder, unspecified type F90.9 [facility], [facility] [address] [place] [address] 03/05/2024 Loi Carvajal Attention-deficit hyperactivity disorder, unspecified type F90.9 [facility], [facility] [address] [place] [address] 03/29/2024 Loi Carvajal Attention-deficit hyperactivity disorder, unspecified type F90.9 [facility] [address] [place] [address] 05/03/2024 Loi Carvajal Attention-deficit hyperactivity disorder, unspecified type F90.9 [facility] [address] [place] [address] 06/11/2024 Loi Carvajal Attention-deficit hyperactivity disorder, unspecified type F90.9 [facility] [address] [place] [address] 07/22/2024 Loi Carvajal Attention-deficit hyperactivity disorder, unspecified type F90.9 [facility], [facility] [address] [place] [address] 08/18/2024 Loi Carvajal Attention-deficit hyperactivity disorder, unspecified type F90.9 [facility], [facility] [address] [place] [address] 10/12/2024 Loi Carvajal Attention-deficit hyperactivity disorder, unspecified type F90.9 [facility], [facility] [address] [place] [address] 12/24/2024 Loi Carvajal Attention-deficit hyperactivity disorder, unspecified type F90.9 Assessments Encounter Date Diagnosis (ICD Code) Assessment Notes Treatment Notes Treatment Clinical Notes Section Notes 05/03/2024 Attention-defic it hyperactivity disorder, unspecified type (ICD-10 - F90.9) 06/11/2024 Attention-defic it hyperactivity disorder, unspecified type (ICD-10 - F90.9) 07/22/2024 Attention-defic it hyperactivity disorder, unspecified type (ICD-10 - F90.9) 08/18/2024 Attention-defic it hyperactivity disorder, unspecified type (ICD-10 - F90.9) 03/05/2024 Attention-defic it hyperactivity disorder, unspecified type (ICD-10 - F90.9) [...] assess patient's progress and medication needs 08/23/2024 Generalized anxiety disorder (ICD-10 - F41.1) stable 10/12/2024 Attention-defic it hyperactivity disorder, unspecified type (ICD-10 - F90.9) 12/03/2024 Generalized anxiety disorder (ICD-10 - F41.1) stable 03/29/2024 Attention-defic it hyperactivity disorder, unspecified type (ICD-10 - F90.9) 12/24/2024 Attention-defic it hyperactivity disorder, unspecified type (ICD-10 - F90.9) 12/03/2024 Bipolar disorder, current episode mixed, moderate (ICD-10 - F31.62) 03/26/2024 Bipolar disorder, current episode mixed, moderate [...] assess patient's progress and medication needs 08/23/2024 Primary insomnia (ICD-10 - F51.01) trazodone 100mg hs prn 12/03/2024 Primary insomnia (ICD-10 - F51.01) trazodone 100mg hs prn 12/03/2024 Attention-defic it hyperactivity disorder, unspecified type (ICD-10 - F90.9) 08/23/2024 Attention-defic it hyperactivity disorder, unspecified type (ICD-10 - F90.9) 03/26/2024 Attention-defic it hyperactivity disorder, unspecified type (ICD-10 - F90.9) [...] patient's progress and medication needs 08/23/2024 Arti Hope Ferrell, a female patient with a [...] efforts have been made to correct them. 12/03/2024 Arti Ferrell, a female patient with a history of depression and ADHD, presents with recent mood fluctuations, gastrointestinal issues, and transient facial numbness. Mood Disorder Assessment: Patient reports occasional mood fluctuations, including a recent meltdown on Friday due to stress from balancing work and family responsibilities. She denies persistent depressive symptoms, stating these episodes occur infrequently (approximately monthly or less). Patient appropriately managed the recent episode by leaving work early, engaging in relaxation activities, and avoiding medication adjustments. Currently stable on Caplyta 21 mg. Plan: - Continue Caplyta 21 mg - Continue Trazodone 100 mg Attention Deficit Hyperactivity Disorder (ADHD) Assessment: Patient reports good response to current ADHD medication, primarily using it during workdays for improved focus and productivity. Plan: - Continue Adderall 30 mg, primarily for use on workdays Gastrointestinal Issues Assessment: Patient reports recent difficulty with bowel movements, possibly related to intermittent use of Ozempic (semaglutide). Current use is approximately 10 units every 7-10 days due to insurance coverage issues. Plan: - Monitor gastrointestinal symptoms - Continue current Ozempic regimen as tolerated Follow-up Assessment: Patient agrees to routine follow-up for medication management and symptom monitoring. Plan: - Schedule follow-up appointment in 3 months the note is transcribed using speech recognition software. It is a reflection of a visit with the patient. It might have some inaccuracy, including medication names and transcribing errors, though efforts have been made to correct them. Plan Of Treatment Pending Test Test Name Order Date ADHD Testing 12/03/2023 Next Appt Details Provider Name:Loi franks, 02/25/2025 09:00:00 AM, [address] [facility] [address] [facility] [address], [place], [address], Insurance Providers Payer Name Payer Address Payer Phone Subscriber Number Group Number Insured Name Patient Relationship to Insured Coverage Start Date Coverage End Date [facility] [address] [address] [place] [address] [id number] HOPE FERRELL Self - patient is the insured [facility] [address] [address] [place] [address] [id number] HOPE FERRELL Self - patient is the insured Medical [...] Normal Surgical History Surgery Date(Month/Year) Tonsilectomy/adenoids Tonsillectomy ([id number]) 05/12/2009
--- OUTSIDE RECORDS SUMMARY | 2025-02-23 17:41 | XMS_ITS | Data Portability ---
Author Organization [facility] Address [address] [place] [address] Care Team Providers Care Shallot Cleaner Name Role Phone MEHRANSUSIE MERCER Primary Care [...] recorded. Lab testosteron e, total, serum 2023 [facility] (Lab), [address] [place], [address], 4 13:06:30 testosteron e, free, serum 2023 024 [facility] (Lab), [address] [place], [address], 4 13:06:31 CMP, serum or plasma 2023 024 [facility] (Lab), [address], [place], [address], 4 13:06:30 hormone panel, serum or plasma 2023 024 [facility] (Lab), [address], [place], [address], 4 11:58:04 Referral None recorded. Procedures None recorded. Surgeries dilation and curettage with hysteroscop y (SURG) 2023 024 [facility], [address], [place], [address], 4 15:05:27 Imaging US, pelvis 2023 [address]24 [address], [address], [place], [address], 4 15:22:56 US, transvagina l 2023 [address], [address], [place], [address], 4 15:22:56 MAMMO, screening, bilateral [address] [facility], [address], [place], [address], 4 10:56:46 US, pelvis, complete 2023 [facility]24 [facility] [address], [address], [place], [address], 4 13:24:25 Medication Orders None recorded. Patient [...] or kits canno t be used inter [facility] . Femal e Estra diol Range s: Folli cular phasE 12.4- 233 pg/mL Ovula tion phasE 41.0- 398 pg/mL Lutea l phasE 22.3- 341 pg/mL Postm enopa usal <5-13 8 pg/mL Healt hy Pregn ant Women 1st Trime ster 154-3 243 pg/mL 2nd Trime ster 1561- 91346 pg/mL 3rd Trime ster 8525- >3000 0 pg/mL Not Available [facility] (Lab) [address] [place], [address], 10/10/2023 11:58:04 10/09/19 24 10/09/2023 FSH, LH, ESTRA DIOL FSH 15.0 mIU/m L This assay was perfo rmed using [employer] ratio n reage nts and test kits. Value s obtai kieran with other assay metho ds or kits canno t be used inter [facility] . Femal es Folli cular : 3.5-1 2.5 mIU/m L Ovula tion: 4.7-2 1.5 mIU/m L Lutea l: 1.7-7 .7 mIU/m L Postm enopa use: 25.8- 134.8 mIU/m L Not Available [facility] (Lab) [address] [place], [address], 10/10/2023 11:58:04 10/09/19 24 10/09/2023 FSH, LH, ESTRA DIOL LH 8.7 mIU/m L This assay was perfo rmed using [employer] reage nts and test kits. Value s obtai kieran with other assay metho ds or kits canno t be used inter [facility] . Femal es Mid-F ollic ular: 2.4-1 2.6 mIU/m L Mid-C ycle: 14.0- 95.6 mIU/m L Mid-L uteal : 1.0-1 1.4 mIU/m L Postm enopa use: 7.7-5 8.5 mIU/m L Not Available 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 ----- ----- ----- ----- ----- ----- ----- ----- ----- ----- ----- ----- ----- ----- ----- ----- ----- ---- FINAL DIAGN OSIS: Negat starr for Intra epith elial Beronica talamantes or Beckie escobar (NIL) . Elect alisha guerrero by Silviano Crenshaw am, CT on 024 at 11:07 AM ----- ----- ----- ----- ----- ----- ----- ----- ----- ----- ----- ----- ----- ----- ----- ----- ----- ---- HPV RESUL TS: HPV mRNA E6/E7 : No HPV mRNA Detec rasheed NOTE: This high risk HPV mRNA assay detec ts fourt een high- risk HPV types (16, 18, 31, 33, 35, 39, 45, 51, 52, 56, 58, 59, 66, 68) witho ut diffe renti ation . COMME NT: This speci men was revie wed by a Cytot echno logis t and/o r Patho logis t (as indic ated in this repor t) after evalu ation using the Thinp rep Imagi ng Syste m. CLINI ESTELLA INFOR MATIO N: Menst rual Statu s: LMP (if appli cable ): Clini estella Histo ry/Pr eviou s Pap: Type of Neopl prabhu (if appli cable ): Signi fican t Clini estella Findi ngs: Other Histo ry: Hormo parisa (if appli cable ): PAP EDUCA WESTLEY L NOTE: The Pap Test is a scree danny test with an inher ent false negat starr rate. Liqui d-bas ed sampl ing may decre ase, but will not elimi padilla, false negat starr resul ts. A negat starr resul t does not precl ude the prese nce and/o r devel opmen t of disea se, since the prese nce of abnor mal cells in the sampl e depen ds on the locat ion of the lesio n and sampl ing techn ique. Carol nued regul ar scree danny is the best metho d of cance r preve ntion . If repor rasheed cytol ogic findi ng do not corre late with physi estella and/o r histo rical findi ngs, furth er inves tigat ion is recom royer d, as clini judy ceballos nted. Not Available [facility] (Lab) [address] [facility], [place], [address], 10/14/2023 12:11:41 10/09/19 24 10/09/2023 TRICH OMONA S VAGIN BROOKE (RRNA ) trichomonas vaginalis ribosomal RNA (rrna) Negati ve negati ve Not Available [facility] (Lab) [address] [facility], [place], [address], 10/14/2023 12:11:42 10/09/19 24 10/09/2023 CT/GC (GUEVARA) , THINP REP VIAL chlamydia trachomatis, PCR Negati ve negati ve Not Available [facility] (Lab) [address] [facility], [place], [address], 10/14/2023 12:11:43 10/09/19 24 10/09/2023 CT/GC (GUEVARA) , THINP REP VIAL neisseria gonorrhoeae, PCR Negati ve negati ve Not Available [facility] (Lab) [address] [facility], [place], [address], 10/14/2023 12:11:43 12/02/19 24 12/02/2023 TESTO STERO NE, TOTAL testosterone , total 84 NG/dL 0-100 Not Available [facility] (Lab) [address] [facility], [place], [address], 12/07/2023 13:06:30 12/02/19 24 12/02/2023 CMP(C OMPRE HENSI VE METAB OLIC PANEL ) sodium 139 mmol/ L 133-14 6 Not Available [facility] (Lab) [address] [facility], [place], [address], 12/07/2023 13:06:30 12/02/19 24 12/02/2023 CMP(C OMPRE HENSI VE METAB OLIC PANEL ) potassium 4.2 mmol/ L 3.5-5. 1 Not Available [facility] (Lab) [address] [place], [address], 12/07/2023 13:06:30 12/02/19 24 12/02/2023 CMP(C OMPRE HENSI VE METAB OLIC PANEL ) chloride 103 mmol/ L 98-107 Not Available [facility] (Lab) [address] [facility], [place], [address], 12/07/2023 13:06:30 12/02/19 24 12/02/2023 CMP(C OMPRE HENSI VE METAB OLIC PANEL ) carbon dioxide 26 mmol/ L 21-31 Not Available [facility] (Lab) [address] [facility], [place], [address], 12/07/2023 13:06:30 12/02/19 24 12/02/2023 CMP(C OMPRE HENSI VE METAB OLIC PANEL ) anion gap 10 mmol/ L 4-13 Not Available [facility] (Lab) [address] [facility], [place], [address], 12/07/2023 13:06:30 12/02/19 24 12/02/2023 CMP(C OMPRE HENSI VE METAB OLIC PANEL ) blood urea nitrogen 10 mg/dL 7-25 Not Available [facility] (Lab) [address] [facility], [place], [address], 12/07/2023 13:06:30 12/02/19 24 12/02/2023 CMP(C OMPRE HENSI VE METAB OLIC PANEL ) creatinine 0.86 mg/dL 0.60-1 .30 Not Available [facility] (Lab) [address] [facility], [place], [address], 12/07/2023 13:06:30 12/02/19 24 12/02/2023 CMP(C OMPRE HENSI VE METAB OLIC PANEL ) egfrcr (CKD-epi 2020) 81 mL/mi n/1.7 3_m2 >=60 Not Available [facility] (Lab) [address] [facility], [place], [address], 12/07/2023 13:06:30 12/02/19 24 12/02/2023 CMP(C OMPRE HENSI VE METAB OLIC PANEL ) calcium 9.4 mg/dL 8.3-10 .5 Not Available [facility] (Lab) [address] [facility], [place], [address], 12/07/2023 13:06:30 12/02/19 24 12/02/2023 CMP(C OMPRE HENSI VE METAB OLIC PANEL ) glucose 99 mg/dL 70-100 Not Available [facility] (Lab) [address] [facility], [place], [address], 12/07/2023 13:06:30 12/02/19 24 12/02/2023 CMP(C OMPRE HENSI VE METAB OLIC PANEL ) protein, total 7.0 g/dL 6.4-8. 3 Not Available [facility] (Lab) [address] [facility], [place], [address], 12/07/2023 13:06:30 12/02/19 24 12/02/2023 CMP(C OMPRE HENSI VE METAB OLIC PANEL ) albumin 4.5 g/dL 3.5-5. 0 Not Available [facility] (Lab) [address] [facility], [place], [address], 12/07/2023 13:06:30 12/02/19 24 12/02/2023 CMP(C OMPRE HENSI VE METAB OLIC PANEL ) ALT 12 units /L 9-43 Not Available [facility] (Lab) [address] [facility], [place], [address], 12/07/2023 13:06:30 12/02/19 24 12/02/2023 CMP(C OMPRE HENSI VE METAB OLIC PANEL ) alkaline phosphatase 73 units /L 34-104 Not Available [facility] (Lab) [address] [facility], [place], [address], 12/07/2023 13:06:30 12/02/19 24 12/02/2023 CMP(C OMPRE HENSI VE METAB OLIC PANEL ) AST 15 units /L 13-39 Not Available [facility] (Lab) [address] [facility], [place], [address], 12/07/2023 13:06:30 12/02/19 24 12/02/2023 CMP(C OMPRE HENSI VE METAB OLIC PANEL ) bilirubin, total 0.9 mg/dL 0.2-1. 2 Not Available [facility] (Lab) [address] [facility], [place], [address], 12/07/2023 13:06:30 12/02/19 24 12/02/2023 TESTO STERO NE, FREE testosterone free 11.8 pg/mL 0.2-5. 0 high The kathy ntrat ion of free testo stero ne is deriv ed from a mathe matic al model using total testo stero ne by LCMSM S, sex hormo ne aurelio ng globu memo and album in. This test was devel oped and its gadiel tical perfo rmanc e edda cteri stics have been deter mined by [employer]astacio Verg[place], [place]. It has not been clear ed or appro tiarra by the U.S. Food and Drug Admin istra tion. This assay has been valid ated pursu ant to the CLIA regul ation s and is used for clini estella purpo ses. Perfo rming Organ izati on Infor matio n: Site ID: AMD Name: [employer] [place] [facility] malathi Addre ss: [id number] [place], [place] Direc tor: Tito Belcher MD PhD Not Available [facility] (Lab) [address] , [place], [address], 12/07/2023 13:06:31 10/13/19 24 10/13/2023 US, pelvi s No observ ation record ed. [email or web address] [place] [address], [place], [address], 10/13/2023 13:09:06 10/13/19 24 10/13/2023 US, trans vagin al No observ ation record ed. [email or web address] [place] [address], [place], [address], 10/13/2023 13:08:56 10/13/19 24 10/13/2023 US, cindy s No observ ation record ed. [email or web address] [address], [place], [address], 10/22/2023 11:29:49 Result Notes None recorded. Procedures Surgical History Date Name Laterality Status Provider Name and Address Organization Details Recorded Time 11/24/19 24 DILATION AND CURETTAGE WITH HYSTEROSCOPY (SURG) completed Madi Lester [facility] 11/24/2023 16:16:49 10/09/19 24 Date of Last Pap Smear completed [facility] 12/02/2023 10:05:10 05/12/19 23 Date of Last Colonoscopy completed [facility] 10/09/2023 11:57:28 05/12/19 11 Tonsillectomy completed [facility] 10/09/2023 12:06:33 05/12/19 10 thyroidectomy completed [facility] 10/09/2023 12:06:47 Tubal Ligation completed [facility] 10/09/2023 12:06:25 Imaging Results None recorded. Procedure Notes None recorded. Medical Equipment None Reported. Allergies Allergen ID Allergen Name Allergen Category Reaction Reaction Severity Criticality Documentation Date Start Date Code Code System Note Provider Name and Address Organization Details Recorded Time Substance with sulfonami de structure and antibacte rial mechanism of action (substanc e) medicatio n Not available Not available Not available 10/09/2023 86198 0613 SNOMED [facility] 11:51:23 Medications Name Sig Start [...] Updated DateTime 10/09/2023 162.56 cm 32.3 kg/m2 08981.37 g 124/78 mm[Hg] Cynthia Landeros [facility] 10/09/2023 11:51:13 Date Recorded Body height Body mass index (BMI) Body weight Systolic And Diastolic Provider Name and Address Organization Details Last Updated DateTime 10/23/2023 162.56 cm 32.9 kg/m2 47172.02 g 101/67 mm[Hg] Renée Garzon [facility] 10/23/2023 09:35:21 Date Recorded Body height Body mass index (BMI) Body weight Systolic And Diastolic Provider Name and Address Organization Details Last Updated DateTime 12/02/2023 162.56 cm 31.8 kg/m2 24100.59 g 106/73 mm[Hg] Cynthia Landeros [facility] 12/02/2023 10:03:58 Social History Question Answer Notes LastModified by Organizat ion Details LastModified Time Tobacco Smoking Status Current Every Day Smoker Cynthia Landeros [facility] 10/09/2023 12:02:44 Are You Blind Or [...] Or The Highest Degree You Have Received? [id number] Information not available 10/09/2023 Are There Any [...] not available 10/09/2023 Are you able to walk independently without assistance or assistive devices? YESWOREST Information not available 10/09/2023 Are you able to care for yourself independently? Yes Information not available 10/09/2023 Do you have difficulty dressing, bathing, grooming, or toileting? No Information not available 10/09/2023 What is your exercise level? None Information not available 10/09/2023 Mental Status Question Answer Note LastModified by Organization D etails LastModified Time Do you feel stressed (tense, restless, nervous, or anxious, or unable to sleep at night)? [id number] Information not available 10/09/2023 Family History Relationship Description Onset Age of this Age Resolved Age Notes LastModified by Organization Details LastModified Time Father Parkinson's disease Not available 2023 12:02:07 Mother Pulmonary fibroplasia Not available 09/11 12:02:32 Sister Pulmonary fibroplasia Not available 09/11 12:02:32 Medical History Condition Response Allergies (Food, seasonal, environmental ) N Other Y Breast Cancer N Drug/Latex Allergies/Reactions N Blood Transfusion N Dermatologic Disorders N Lung Disease N [...] Diagnosis SNOMED-CT Code Diagnosis ICD10 Code Diagnosis IMO Codes Diagnosis Note [id number] [facility] [address] [address] 10/09/2023 11:22:36 10/09/2023 12:35:07 Postmenopausal bleeding 32710814 N95.0 Today we agreed to update a [...] of plan of care. 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 [id number] Alhaji Eldridge MD [place] [address],[place] [address] 10/13/2023 11:39:42 10/13/2023 12:49:01 Postmenopausal bleeding 02365120 N95.0 [id number] SHAE CASH MD [place] [address],[place] [address] 10/23/2023 09:17:40 10/29/2023 06:52:18 Postmenopausal bleeding 44242845 N95.0 - on HRT (estrogen and testostero ne) for years, no progestero ne therapy until August- two episodes of PMB- pelvic US demonstrat es heterogeno us and threatened endometriu m, 7mm- recommend full endometria l sampling with hysterosco py and D&C; r/b/a discussed with patient- continue progestero ne therapy until D&C [id number] SHAE CASH MD [place] [address],[place] [address] 12/02/2023 09:52:04 12/02/2023 10:42:17 Hormone replacement therapy 153306991 Z79.890 - on IM testostero ne and estrogen, PO progestero ne- reports facial hair growth, voice deepening- will check testostero ne and CMP today; patient not fasting for lipid panel- follow up on results as available Postoperative visit 5080 79998 Z48.89 - s/p hysterosco py D&C 7/15- meeting post op milestones - ok to [...] Barth Member ID Guarantor Name 11/30/2023 1 [facility] [id number] Enrique Ferrell [id number] Hope Ramon Ghassan Notes Date Note Type Note Provider Name and Address Organization Details Recorded Time 4 text/html [facility] - Abnormal BleedingReported by PatientHPIFor quality, patient reportsirregularbut reportsspotting (brownish like old blood). For associated symptoms, patient reportspelvic pain (left lower)but reportsno dysmenorrhea,no abdominal pain,no dyspareunia,no fatigue,no dizziness,no anemia/iron supplements,no shortness of breath, andno cp/palpitations. For onset/timing, patient reportspostmenopause. For duration, patient reports1-2 days. For context, patient reportscurrent hrt use (testosterone injections/progesterone- -not new regimen). CAITLIN Cardoza- [address], [place], [address], [facility] 10/09/2023 12:34:33 4 text/html Presents for discussion of PMB. December [...] cancer. SHAE CASH MD [address], [place], [address], [facility] 10/28/2023 22:58:21 4 text/html S/p hysteroscopy D&C 11/23. Patient doing well, no complaints. Pain resolved. Tolerating general diet. Denies nausea or vomiting. No shortness of breath or chest pain. Ambulating. Bleeding resolved. Patient on HRT with IM estrogen and testosterone. Patient reports increased facial hair and voice deepening. SHAE CASH MD [address], [place], [address], [place] [facility] 12/02/2023 10:36:37 OBGyn Episode Ob Episode Information Episode Created Date Number of Fetuses Patient Bloodtype Patient rh Status Prepregnancy Weight lbs Domestic Partner Domestic Partner Phone Father Name Production Support Engineer Status 10/09/19 24 1 CLOSED Fetus Data First Name Last Name Admitted to NICU Weight (g) Sex Living Outcome Pediatric Complications Fetus ID Race Codes Race Delivery Type M Full Term [id number] Vaginal Delivery [place] Calculation Initial [place] Date [...] Domestic Partner Domestic Partner Phone Father Name Production Support Engineer Status 10/09/19 24 1 CLOSED Fetus Data First Name Last Name Admitted to NICU Weight (g) Sex Living Outcome Pediatric Complications Fetus ID Race Codes Race Delivery Type , Spontane ous [id number] [place] Calculation Initial [place] Date Initial Exam [...] Domestic Partner Domestic Partner Phone Father Name Production Support Engineer Status 10/09/19 24 1 CLOSED Fetus Data First Name Last Name Admitted to NICU Weight (g) Sex Living Outcome Pediatric Complications Fetus ID Race Codes Race Delivery Type F Full Term 26031 Vaginal Delivery [place] Calculation Initial [place] Date [...] Domestic Partner Domestic Partner Phone Father Name Production Support Engineer Status 10/09/19 24 1 CLOSED Fetus Data First Name Last Name Admitted to NICU Weight (g) Sex Living Outcome Pediatric Complications Fetus ID Race Codes Race Delivery Type , Induced 84134 [place] Calculation Initial [place] Date Initial Exam Date Initial Exam Provider Initial Ultrasound Date Last Menstrual Period Date Ultra Sound Weeks Gestation 0 Eighteen To Twenty Week [place] Update Ultra Sound Date Fundal Height At Umbil Quickening Date Ultra Sound Latest Weeks Gestation Final [place] Confirmed By Final [place] Confirmed Date Final Modesot Date Ultra Sound Latest Days Gestation 0 [...] Domestic Partner Domestic Partner Phone Father Name Production Support Engineer Status 10/09/19 24 1 CLOSED Fetus Data First Name Last Name Admitted to NICU Weight (g) Sex Living Outcome Pediatric Complications Fetus ID Race Codes Race Delivery Type , Spontane ous [id number] [place] Calculation Initial [place] Date Initial Exam [...] Domestic Partner Domestic Partner Phone Father Name Production Support Engineer Status 10/09/19 24 1 CLOSED Fetus Data First Name Last Name Admitted to NICU Weight (g) Sex Living Outcome Pediatric Complications Fetus ID Race Codes Race Delivery Type , Induced 07442 [place] Calculation Initial [place] Date Initial Exam [...] Domestic Partner Domestic Partner Phone Father Name Production Support Engineer Status 10/09/19 24 1 CLOSED Fetus Data First Name Last Name Admitted to NICU Weight (g) Sex Living Outcome Pediatric Complications Fetus ID Race Codes Race Delivery Type F Full Term 60761 Vaginal Delivery [place] Calculation Initial [place] Date [...]
--- OUTSIDE RECORDS SUMMARY | 2025-02-23 17:41 | XMS_ITS | Encounter Summary ---
Author Organization [facility] Health Address [address] [place] [address] Care Team Providers Care Filer Finish Name Role Phone Job Fuller APRN-STAGE ELECTRICIAN Unavailable [phone] Job Fuller SHOPPER MARKETING MANAGER-STAGE ELECTRICIAN Primary Care Provider Encounter Details Date Type Department Care Team (Late st Contact Info) Description 05/16/2023 Lab Requisition [facility] - DermPath Lab [address] [place] [address] Jim Westbrook MD [address] [place] [address] Social History Tobacco Use Types Packs/Day [...] Comments DERMATOPATHOLOGY Routine 05/15/2023 12:0 0 AM RETAIL MAINTENANCE TECHNICIAN documented in this encounter Results * DERMATOPATHOLOGY (05/15/2023 12:00 AM RETAIL MAINTENANCE TECHNICIAN) Case Report Dermatopathology Report Case: [id number] Authorizing Provider: Jim Westbrook MD Collected: 05/15/2023 12:00 AM Ordering Location: [facility] DermPath Lab Received: 05/16/2023 12:53 PM Pathologist: Alisia Masters MD Specimen: Skin, left upper chest 2:48 PM [facility] DERMATOPATHOLOGY [facility]ORATORY Final Diagnosis Specimen A. 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 Path#[id number] 2:48 PM [facility] DERMATOPATHOLOGY LABORATORY Gross Description Specimen A: Received is one formalin filled container labeled with the patient's name and designated left upper chest. The specimen consists of a shave biopsy measuring 4x2x1 mm. Jar 0. 2:48 PM [facility] DERMATOPATHOLOGY [facility]ORATORY Microscopic Description Specimen A. SKIN, left upper chest: There is hyperkeratosis alternating with parakeratosis. There is epidermal hyperplasia with disorderly maturation of keratinocytes with nuclear pleomorphism confined to the lower half of the epidermis. Focally there is a suprabasilar cleft with acantholytic cells. Additional deeper sections were obtained and reviewed. 2:48 PM [facility] DERMATOPATHOLOGY [facility]ORATORY Disclaimer An external and internal positive and negative controls are appropriate for the histochemical, immunohistochemical and immunofluorescence stain(s) in this case (if any), except where stated explicitly. The performance characteristics of the stain(s) cited in this report were developed and its performance characteristic determined by the Dermatopathology Laboratory at [facility], directed by Dr. Neeraj Case. These tests need not be, and therefore are not, approved by the [place] Food and Drug Administration. The tests are used for clinical purposes. Billing Codes Specimen Charges Stain Charges 53377 1 2:48 PM [facility] DERMATOPATHOLOGY [facility]ORATORY Embedded Images 2:48 PM [facility] DERMATOPATHOLOGY [facility]ORATORY Pathology/Cytolog y TISSUE SPECIMEN FROM SKIN / Unknown 05/15/2023 05/16/2023 12:53 PM RETAIL MAINTENANCE TECHNICIAN us Jim Westbrook MD LAB - PATHOLOGY/CYTOLOGY ORDER KERON Final Result DERMATOPATHOLOGY LABORATORY [facility] - Department of Dermatology [address] [place] [address], [facility] [phone] documented in this encounter Visit Diagnoses Not on filedocumented in this encounter Care Teams Filer Finish Relationship Specialty Start Date End Date Job Fuller APRN-CNP [address] [place] [address] PCP - General 06/06/20 Job Fuller APRN-CNP [address] [place] [address] 05/29/20 documented as of this encounter
--- OUTSIDE RECORDS SUMMARY | 2025-02-23 17:41 | XMS_ITS | Clinical Summary ---
Author Organization [facility] Address [address] [place] [address] Care Team Providers Care Fish Farm Manager Name Role Phone Job Fuller APRN-JOSÉ MIGUEL Unavailable [phone] Job Fuller APRN-JOSÉ MIGUEL Primary Care Provider Source Comments [facility],non-owned Affiliates and Associated Physician Practices is amultiple site organization consisting of ambulatory clinics and hospital sitesin [place], [place], [place] and [place]. This disclosure is being madepursuant to the Care Everywhere program and may not contain all information available regarding this patient. Last updated 18.[facility] Allergies Active Allergy Reactions Criticality Noted [...] Acute sinusitis 03/10/2019 10/29/2024 Constipation 01/08/2019 10/29/2024 Family History Relation Name Status Comments Father [...] PM CDT Pulse 105 07/07/2020 10:58 AM EXPLOSIVE EXPERT Temperature 36.1 C (97 F) 07/07/2020 10:58 AM EXPLOSIVE EXPERT Respiratory Rate 20 06/02/2020 9:05 AM EXPLOSIVE EXPERT Oxygen Saturation 96% 07/07/2020 10:58 AM EXPLOSIVE EXPERT Inhaled Oxygen Concentration - - Weight 67.2 kg (148 lb 3.2 oz) 10/01/2024 1:30 P M CDT Height 162.6 cm (5' 4) 10/01/2024 1:30 PM CDT Body Mass Index 25.44 10/01/2024 1:30 PM CDT Plan of Treatment Health Maintenance Due Date [...] 2010 ZOSTER VACCINE (1 of 2) 2020 DIABETES - URINE PROTEIN SCREENING 05/12/2024 DIABETES RETINOPATHY SCREENING 10/01/2024 DIABETES-FOOT EXAM WITH MONOFILAMENT 10/01/2024 DIABETES-HGB A1C 10/01/2024 DIABETES-SERUM CREATININE 12/01/2024 12/02/2023 COVID-19 VACCINE (2 - 2024-2 6 season) 2025 12/12/2020 INFLUENZA VACCINE (#1) 2025 7, 01/23/2016, 02/07/2015 [...] patient's age to complete this topic Insurance [facility] Member Subscriber Plan / Payer (Ef fective 2024-Present) Name:Hope Barnett Relation to Subscriber:Spouse Name:ENRIQUE BARNETT Date of :1965 Address: [address] [place] [address] Payer ID:[id number] (NAIC) Type:PPO Address: [address] * Guarantor: HOPE BARNETT Account Type Relation to Patient Date of Phone Billing Address Personal/Family [place] [address] [facility] * Guarantor: HOPE BARNETT Account Type Relation to Patient Date of Phone Billing Address Personal/Family [address] [place] [address] * Guarantor: HOPE BARNETT Account Type Relation to Patient Date of Phone Billing Address Personal/Family [address] [place] [address] Care Teams Fish Farm Manager Relationship Specialty Start Date End Date Job Fuller APRN-CNP [address] [place] [address] PCP - General 06/06/20 Job Fuller APRN-CNP [address] [place] [address] 05/29/20
--- OUTSIDE RECORDS SUMMARY | 2025-02-23 17:41 | XMS_ITS | Clinical Summary ---
Author Organization [facility] Address [address] [place] [id number] Care Team Providers Care Computer Network And Systems Engineer Name Role Phone Carlos Fuller Primary Care Provider + Allergies Active Allergy Reactions Criticality Noted Date Comments Sulfa Antibiotics Angioedema,Itching,Unknown Medium Medications No known medications Encounters Date Type Department Care Team Description 11/23/2024 7:45 AM CDT - 11/23/2024 1:14 PM CDT Emergency [facility] Emergency Room [address] [place] [address] Marvel Huizar MD Eye Problem Discharge Disposition: Home or Self Care (Routine Discharge) 11/23/2024 Travel from Last 3 Months Social History Tobacco Use Types Packs/Day Years Used Date Smoking Tobacco: Never Smokeless Tobacco: Never Tobacco Cessation:Counseling Given: Not Answered Comments Unknown Sex and Gender Information Value Date Recorded Sex Assigned at Not on file Legal Sex Female 12:57 PM CDT Gender Identity Not on file Sexual Orientation Not on file Last Filed Vital Signs Vital Sign Reading Time Taken Comments Blood Pressure 120/75 11/23/2024 12:00 PM CDT Pulse 80 11/23/2024 12:00 PM CDT Temperature 36.7 C (98.1 F) 11/23/2024 12:00 PM CDT Respiratory Rate 18 11/23/2024 12:00 PM CDT Oxygen Saturation 98% 11/23/2024 12:00 PM CDT Inhaled Oxygen Concentration - - Weight 65.8 kg (145 lb) 11/23/2024 7:47 AM CDT Height 162.6 cm (5' 4) 11/23/2024 7:47 AM CDT Body Mass Index 24.89 11/23/2024 7:47 AM CDT Plan of Treatment Health Maintenance Due Date Last Done Comments ASCVD Statin 1970 Cervical Cancer Screening Pa p Smear (Age [...] wi th HPV 2000 Mammogram Screening 2010 ASCVD LDL 01/28/2018 01/28/2017 Pneumococcal Vaccine: 50+ Years (1 of 1 - PCV) 2020 Zoster Vaccines (1 of 2) 2020 COVID-19 Vaccine (2 - 2024-2 6 season) 2025 12/12/2020 Influenza Adult (#1) 2025 01/28/2017, 01/23/2016, 02/07/2015 Meningococcal B Vaccine Aged Out No l onger eligible based on patient's age to complete this topic Meningococcal Vaccine Aged Out No beatriz colby eligible based on patient's age to complete this topic RSV Immunizations Under 20 Months Aged Out No longer eligible b ased on patient's age to complete this topic Procedures Procedure Name Priority Date/Time Associated Diagnosis Comments MRI BRAIN WO CON STAT 11/23/2024 11:5 1 AM CDT DRUG SCREEN RAPID STAT 11/23/2024 10: 59 AM CDT URINALYSIS, AUTO, COMPLETE STAT 11/23/2024 10:59 AM CDT TSH W/REFLEX STAT 11/23/2024 9:10 AM CDT MAGNESIUM STAT 11/23/2024 9:10 AM CDT PRO-BRAIN NATRIURETIC PEPTIDE STAT 11/23/2024 9:10 AM CDT CK (CPK) STAT 11/23/2024 9:10 AM CDT COMPREHENSIVE METABOLIC PANEL STAT 11/23/2024 9:10 AM CDT SED RATE, ERYTHROCYTE (ESR) STAT 11/23/2024 9:10 AM CDT PARTIAL THROMBOPLASTIN TIME,PTT STAT 11/23/2024 9:10 AM CDT PROTHROMBIN TIME, VENOUS STAT 11/23/2024 9:10 AM CDT CBC W/DIFF AUTOMATED STAT 11/23/2024 9:10 AM CDT ECG 12-LEAD Routine 11/23/2024 9:06 AM CDT HEALTH FAIR WITH LIPID Routine 7 6:00 AM CDT from Last 3 Months or Most Recently Relevant to Health Maintenance Results * MRI BRAIN WO CON (11/23/2024 11:51 AM CDT) Anatomical Region Laterality Modality Head Magnetic Resonan ce 11/23/2024 12:0 9 PM CDT Impressions 11/23/2024 12:21 PM CDT IMPRESSION: Unremarkable noncontrast enhanced brain MRI. No acute infarct, mass effect or evidence of hemorrhage. Referred By: Interpreted By: Raj Valadez MD, 11/23/2024 12:09 PM Narrative 11/23/2024 12:21 PM CDT [facility] [address] [place] [address] EXAMINATION:Brain MRI without contrast 11/23/2024 INDICATION:Right-sided periorbital numbness TECHNIQUE: Multiplanar multisequence MR imaging of the head was performed without intravenous contrast. COMPARISON: None FINDINGS:No restricted diffusion. No acute hemorrhage or abnormal susceptibility artifact No mass effect or midline shift or extra-axial fluid collection. No ventriculomegaly Expected flow voids are noted within the intracranial internal carotid, vertebral basilar arteries. The cerebellopontine angles and internal auditory canals are unremarkable. The pituitary gland midline structures are unremarkable. Bone marrow signal is within normal limits The orbits and globes are unremarkable. Expected sigmoids are seen within the paranasal sinuses and mastoid air cells. Procedure Note Raj Valadez MD - 11/23/2024 [facility] [address] [facility]. [place] [id number] EXAMINATION:Brain MRI without contrast 11/23/2024 INDICATION:Right-sided periorbital numbness TECHNIQUE: Multiplanar multisequence MR imaging of the head was performedwithout intravenous contrast. COMPARISON: None FINDINGS:No restricted diffusion. No acute hemorrhage or abnormalsusceptibility artifact No mass effect or midline shift or extra-axial fluid collection. Noventriculomegaly Expected flow voids are noted within the intracranial internal carotid,vertebral basilar arteries. The cerebellopontine angles and internalauditory canals are unremarkable. The pituitary gland midline structuresare unremarkable. Bone marrow signal is within normal limits The orbits and globes are unremarkable. Expected sigmoids are seen withinthe paranasal sinuses and mastoid air cells. IMPRESSION: Unremarkable noncontrast enhanced brain MRI. No acuteinfarct, mass effect or evidence of hemorrhage. Referred By: Interpreted By: Raj Valadez MD, 11/23/2024 12:09 PM Marvel Huizar MD MRI Final Result * DRUG SCREEN RAPID (11/23/2024 10:59 AM CDT) AMPHETAMINE (U) NONE DETECTED NONE DETECTED 11/23/2024 11:20 AM CDT [facility] BARBITURATES SCREEN (U) NONE DETECTED NONE DETECTED 11/23/2024 11:20 AM CDT [facility] BENZODIAZEPINES SCREEN (U) NONE DETECTED NONE DETECTED 11/23/2024 11:20 AM CDT [facility] BUPRENORPHINE SCREEN (U) NONE DETECTED NONE DETECTED 11/23/2024 11:20 AM T [facility] COCAINE METABOLITES (U) NONE DETECTED NONE DETECTED 11/23/2024 11:20 AM CDT [facility] METHAMPHETAMINE (U) NONE DETECTED NONE DETECTED 11/23/2024 11:20 AM T [facility] METHADONE (U) NONE DETECTED NONE DETECTED 11/23/2024 11:20 AM CDT [facility] OPIATE SCREEN (U) NONE DETECTED NONE DETECTED 11/23/2024 11:20 AM T [facility] OXYCODONE SCREEN (U) NONE DETECTED NONE DETECTED 11/23/2024 11:20 AM T [facility] PHENCYCLIDINE PCP (U) NONE DETECTED NONE DETECTED 11/23/2024 11:20 AM T [facility] CANNABINOIDS SCREEN (U) NONE DETECTED NONE DETECTED 11/23/2024 11:20 AM T [facility] TRICYCLIC ANTIDEPRESSANT SCREEN (U) NONE DETECTED NONE DETECTED 11/23/2024 11:20 AM T [facility] Comment: NOTE: RESULTS OF THIS DRUG SCREEN SHOULD BE USED FOR MEDICAL PURPOSES ONLY AND NOT FOR LEGAL OR EMPLOYEMENT PURPOSES. MEDICATIONS CONTAINING EPHEDRINE MAY CAUSE FALSE POSITIVE AMPHETAMINE. AMPHETAMINE- 500 NG/ML BARBITURATE- 200 NG/ML BENZODIAZEPINE- 150 NG/ML BUPRENORPHINE- 10 NG/ML COCAINE- 150 NG/ML METHAMPHETAMINES- 500 NG/ML METHADONE- 200 NG/ML OPIATE- 100 NG/ML OXYCODONE- 100 NG/ML PCP- 25 NG/ML THC- 50 NG/ML TCA- 300 NG/ML URINE SPECIMEN / Unknown 11/23/2024 10:59 AM CDT us Marvel Huizar MD URINE ORDERABLES Final Result [facility] [address] [place] [address], [place] [phone] * (ABNORMAL) URINALYSIS, AUTO, COMPLETE (11/23/2024 10:59 AM CDT) COLOR (U) YELLOW 11/23/2024 11:34 AM CDT [facility] TRANSPARENCY CLEAR 11/23/2024 11:34 AM CDT [facility] SPECIFIC GRAVITY (U) <1.005 1.000 - 1.030 11/23/2024 11:34 AM CDT [facility] U PH 6.0 5.0 - 9.0 11/23/2024 11:34 AM CDT [facility] LEUKOCYTES (U) NEGATIVE NEGATIVE 11/23/2024 11:34 AM CDT [facility] NITRITES NEGATIVE NEGATIVE 11/23/2024 11:34 AM CDT [facility] PROTEIN RANDOM (U) NEGATIVE NEGATIVE 11/23/2024 11:34 AM CDT [facility] GLUCOSE (U) NEGATIVE NEGATIVE 11/23/2024 11:34 AM CDT [facility] KETONES MG/DL (U) NEGATIVE NEGATIVE 11/23/2024 11:34 AM CDT [facility] BILIRUBIN (U) NEGATIVE NEGATIVE 11/23/2024 11:34 AM CDT [facility] BLOOD (U) TRACE(A) NEGATIVE 11/23/2024 11:34 AM CDT [facility] WBC/HPF NONE SEEN 0 - 5 /HPF 11/23/2024 11:34 AM CDT [facility] RBC/HPF NONE SEEN 0 - 5 /HPF 11/23/2024 11:34 AM CDT [facility] EPI/HPF FEW /HPF 11/23/2024 11:34 AM CDT [facility] URINE SPECIMEN OBTAINED BY CLEAN CATCH PROCEDURE / Unknown 11/23/2024 10:59 AM CDT us Marvel Huizar MD URINE ORDERABLES Final Result Performing Organization Address [facility] Co de Phone Number [facility] [address] [place] [address], [place] [phone] * TSH W/REFLEX (11/23/2024 9:10 AM CDT) TSH 3.486 0.358 - 3.74 uIU/ML 11/23/2024 9:41 AM CDT [facility] Comment: HIGH DOSES OF BIOTIN MAY INTERFERE WITH THIS TEST RESULT. CORRELATION TO CLINICAL HISTORY AND PRESENTATION RECOMMENDED. FREE T4 NOT INDICATED 11/23/2024 9:10 AM CDT us Marvel Huizar MD LABORATORY Final Result Performing Organization Address [facility] Co de Phone Number [facility] [address] [place] [address], [place] [phone] * PRO-BRAIN NATRIURETIC PEPTIDE (11/23/2024 9:10 AM CDT) PRO-B TYPE NATRIURETIC PEPTIDE 26 <125 PG/ML 11/23/2024 9:41 AM CDT [facility] Comment: CUT POINTS ESTABLISHED BY INTERNATIONAL COLLABORATIVE ON NT PROBNP (ICON) STUDY (2006). AGE INDEPENDENT: <300 PG/ML HAS A 99% NEGATIVE PREDICTIVE VALUE FOR EXCLUDING ACUTE CHF <50 YEARS: >450 PG/ML IS CONSISTENT WITH ACUTE CHF 50-75 YEARS: >900 PG/ML IS CONSISTENT WITH ACUTE CHF >75 YEARS: >1800 PG/ML IS CONSISTENT WITH ACUTE CHF IN PATIENTS WITH RENAL INSUFFICIENCY (GFR <60), >1200 PG/ML YIELDS A DIAGNOSTIC SENSITIVITY AND SPECIFICITY OF 89% AND 72% FOR ACUTE CHF. 11/23/2024 9:10 AM CDT us Marvel Huizar MD LABORATORY Final Result Performing Organization Address [facility]/ZIP Co de Phone Number [facility] [address] [place] [address], [place] [phone] * PARTIAL THROMBOPLASTIN TIME,PTT (11/23/2024 9:10 AM CDT) PTT 26.9 25.1 - 36.5 SEC 11/23/2024 9:26 AM CDT [facility] 11/23/2024 9:10 AM CDT us Marvel Huizar MD LABORATORY Final Result Performing Organization Address [facility] Co de Phone Number [facility] [address] [place] [address], [place] [phone] * SED RATE, ERYTHROCYTE (ESR) (11/23/2024 9:10 AM CDT) ESR 13 0 - 20 MM/HR 11/23/2024 9:22 AM CDT [facility] 11/23/2024 9:10 AM CDT us Marvel Huizar MD LABORATORY Final Result Performing Organization Address [facility] Co de Phone Number [facility] [address] [place] [address], [place] [phone] * PROTIME/INR, VENOUS (11/23/2024 9:10 AM CDT) PROTIME 11.6 9.1 - 12.4 SEC 11/23/2024 9:26 AM CDT [facility] INR 1.0 11/23/2024 9:26 AM CDT [facility] Comment: Recommend INR ranges for Oral Anticoagulant Therapy: Mechanical Cardiac Values 2.5-3.5 All others indication 2.0-3.0 11/23/2024 9:10 AM CDT us Marvel Huizar MD LABORATORY Final Result [facility] [address] [place] [address], [place] [phone] * (ABNORMAL) COMPREHENSIVE METABOLIC PANEL (11/23/2024 9:10 AM CDT) GLUCOSE 128(H) 70 - 99 MG/DL 11/23/2024 9:41 AM CDT [facility] BUN 14 7 - 18 MG/DL 11/23/2024 9:41 AM CDT [facility] CREATININE S/P/B 0.77 0.55 - 1.02 MG/DL 11/23/2024 9:41 AM CDT [facility] SODIUM S/P/B 135(L) 136 - 145 MMOL/L 11/23/2024 9:41 AM CDT [facility] POTASSIUM S/P/B 3.9 3.5 - 5.1 MMOL/L 11/23/2024 9:41 AM CDT [facility] CHLORIDE S/P/B 100 100 - 108 MMOL/L 11/23/2024 9:41 AM CDT [facility] CO2 27.6 21 - 32 MMOL/L 11/23/2024 9:41 AM CDT [facility] CALCIUM S/P/B 9.0 8.5 - 10.1 MG/DL 11/23/2024 9:41 AM CDT [facility] BILIRUBIN TOTAL S/P/B 0.4 0.2 - 1.2 MG/DL 11/23/2024 9:41 AM CDT [facility] TOTAL PROTEIN S/P/B 7.4 6.4 - 8.2 G/DL 11/23/2024 9:41 AM [facility] ALBUMIN S/P/B 3.4 3.4 - 5.0 G/DL 11/23/2024 9:41 AM T [facility] AST 11(L) 15 - 37 U/L 11/23/2024 9:41 AM [facility] ALT 20 14 - 55 U/L 11/23/2024 9:41 AM [facility] ALKALINE PHOSPHATASE S/P/B 77 50 - 136 U/L 11/23/2024 9:41 AM [facility] ANION GAP 7.4 5 - 15 MMOL/L 11/23/2024 9:41 AM [facility] BUN CREATININE RATIO 18.2 6 - 26 11/23/2024 9:41 AM [facility] A/G RATIO 0.8(L) 1.0 - 2.0 RATIO 11/23/2024 9:41 AM [facility] GFR ESTIMATE >90 >90 ML/MIN/1.7 3 M2 11/23/2024 9:41 AM [facility] Comment: NOTE: eGFR is not calculated for patients <18 years of age. This is an estimated GFR calculation using the new CKD EPI creatinine equation without race and so does not require a correction factor for race. This estimated GFR should not be used for calculating drug doses. 11/23/2024 9:10 AM CDT us Marvel Huizar MD LABORATORY Final Result [facility] [address] [place] [address], [place] [phone] * (ABNORMAL) CBC W/DIFF AUTOMATED (11/23/2024 9:10 AM CDT) WBC 17.40(H) 4.4 - 11.0 x10'3/uL 11/23/2024 9:19 AM CDT [facility] RBC 4.49(L) 4.50 - 5.10 x10'6/uL 11/23/2024 9:19 AM CDT [facility] HGB 14.5 12.3 - 15.3 G/DL 11/23/2024 9:19 AM CDT [facility] HCT 42.4 35.9 - 44.6 % 11/23/2024 9:19 AM CDT [facility] MCV 94.4 80.0 - 96.0 FL 11/23/2024 9:19 AM CDT [facility] MCH 32.3(H) 25.3 - 30.9 PG 11/23/2024 9:19 AM CDT [facility] MCHC 34.2(H) 31.0 - 34.1 G/DL 11/23/2024 9:19 AM CDT [facility] RDW 12.6 12.4 - 15.1 % 11/23/2024 9:19 AM CDT [facility] PLT 444(H) 151 - 353 x10'3/uL 11/23/2024 9:19 AM T [facility] MPV 8.5(L) 9.6 - 12.0 FL 11/23/2024 9:19 AM CDT [facility] RBC MORPHOLOGY NORMAL 11/23/2024 9:19 AM CDT [facility] PLT MORPH. NORMAL 11/23/2024 9:19 AM CDT [facility] WBC MORPHOLOGY NORMAL 11/23/2024 9:19 AM CDT [facility] LYMPHOCYTES % 12.7(L) 15.8 - 45.0 % 11/23/2024 9:19 AM CDT [facility] NEUTROPHILS % 82.2(H) 42.1 - 71.9 % 11/23/2024 9:19 AM CDT [facility] MONOCYTES % 4.0(L) 5.7 - 12.5 % 11/23/2024 9:19 AM CDT [facility] EOSINOPHILS 0.0 0.0 - 5.6 % 11/23/2024 9:19 AM CDT [facility] BASOPHILS 0.2 0.0 - 1.3 % 11/23/2024 9:19 AM CDT [facility] ABS. NEUTROPHILS 14.31(H) 1.40 - 6.00 x10'3/uL 11/23/2024 9:19 AM CDT [facility] IMMATURE GRANS % 0.9(H) 0.0 - 0.5 % 11/23/2024 9:19 AM CDT [facility] ABS. LYMPHOCYTES 2.21 0.80 - 4.70 x10'3/uL 11/23/2024 9:19 AM T [facility] 11/23/2024 9:10 AM CDT Marvel Huizar MD LABORATORY Final Result [facility] [address] [place] [address], * MAGNESIUM (11/23/2024 9:10 AM CDT) MAGNESIUM 1.9 1.8 - 2.4 MG/DL 11/23/2024 9:41 AM CDT [facility] 11/23/2024 9:10 AM CDT us Marvel Huizar MD LABORATORY Final Result [facility] [address] [place] [address], [place] [phone] * CK (CPK) (11/23/2024 9:10 AM CDT) CPK 34 26 - 192 U/L 11/23/2024 9:41 AM CDT [facility] 11/23/2024 9:10 AM CDT us Marvel Huizar MD LABORATORY Final Result Performing Organization Address [facility] Co de Phone Number [facility] [address] [place] [address], [place] [phone] * ECG 12 lead (11/23/2024 9:06 AM CDT) 11/23/2024 9:06 AM CDT Narrative [facility] ([facility]) RAD - 11/24/2024 6:37 AM CDT [facility] Test Date: 2024-11-23 Pat Name: MAXIMO BARNETT Department: 85 Room: EXAM 101 Gender: Female Editor Sound: : 1970 Requested By: MARVEL HUIZAR Order Number: [id number] Efrain MD: Ady Roman Measurements Intervals Clio Rate: 64 P: 21 MT: 130 QRS: 49 QRSD: 85 T: 53 QT: 376 QTc: 390 Interpretive Statements SINUS RHYTHM WITH OCCASIONAL SUPRAVENTRICULAR PREMATURE COMPLEXES No previous ECG available for comparison Procedure Note Ady Roman MD - 11/24/2024 [facility] Test Date: 2024-11-23 Pat Name: MAXIMO BARNETT Department: 85 Room: EXAM 101 Gender: Female Editor Sound: : 1970 Requested By: MARVEL HUIZAR Order Number: [id number] Reading MD: Ady Roman Measurements Intervals Clio Rate: 64 P: 21 MT: 130 QRS: 49 QRSD: 85 T: 53 QT: 376 QTc: 390 Interpretive Statements SINUS RHYTHM WITH OCCASIONAL SUPRAVENTRICULAR PREMATURE COMPLEXES No previous ECG available for comparison us Marvel Huizar MD ECG ORDERABLES Final Result [facility] ([facility]) RAD * (ABNORMAL) HEALTH FAIR WITH LIPID (01/28/2017 6:00 AM CDT) GLUCOSE 88 70 - 99 MG/DL 01/28/2017 1:56 PM CDT [facility] BUN 14 7.0 - 18.7 MG/DL 01/28/2017 1:56 PM CDT [facility] SODIUM S/P/B 142 136 - 145 MMOL/L 01/28/2017 1:56 PM CDT [facility] POTASSIUM S/P/B 4.0 3.5 - 5.1 MMOL/L 01/28/2017 1:56 PM CDT [facility] CHLORIDE S/P/B 108(H) 98 - 107 MMOL/L 01/28/2017 1:56 PM CDT [facility] CO2 25.0 22 - 29 MMOL/L 01/28/2017 1:56 PM CDT [facility] CREATININE S/P/B 0.67 0.60 - 1.10 MG/DL 01/28/2017 1:56 PM CDT [facility] CALCIUM S/P/B 8.7 8.4 - 10.2 MG/DL [facility]2017 [facility] S/[facility]/B 3.8 3.5 - 5.0 G/DL 01/28/2017 1:56 PM [facility] TOTAL PROTEIN S/P/B 6.8 6.4 - 8.3 G/DL 01/28/2017 1:56 PM [facility] BILIRUBIN TOTAL S/P/B 0.3 0.2 - 1.2 MG/DL 01/28/2017 1:56 PM [facility] ALT 11 0 - 31 U/L 01/28/2017 1:56 PM [facility] AST 13 5 - 34 U/L 01/28/2017 1:56 PM [facility] ALKALINE PHOSPHATASE S/P/B 104 30 - 115 U/L 01/28/2017 1:56 PM [facility] CHOLESTEROL 195 <200 MG/DL 01/28/2017 1:56 PM [facility] TRIGLYCERIDES 64 <150 MG/DL 01/28/2017 1:56 PM [facility] HDL 50(L) >60 MG/DL 01/28/2017 1:56 PM [facility] Comment:AN HDL OF >60 IS NO RISK, RISK IS DEFINED <40 LDL (CALCULATED) 132(H) <100 MG/DL 01/28/2017 1:56 PM [facility] TSH 0.397 0.35 - 4.94 uIU/ML 01/28/2017 3:23 PM [facility] A/G RATIO 1.3 1.1 - 1.9 RATIO 01/28/2017 1:56 PM [facility] WBC 9.3 4.8 - 10.8 x10'3/uL 01/28/2017 12:14 PM [facility] RBC 3.83(L) 4.10 - 5.10 x10'6/uL 01/28/2017 12:14 PM CDT [facility] HGB 11.7(L) 12.0 - 16.0 G/DL 01/28/2017 12:14 PM CDT [facility] HCT 36.0 36 - 46 % 01/28/2017 12:14 PM CDT [facility] MCV 94.0 80 - 100 FL 01/28/2017 12:14 PM CDT [facility] MCH 30.5 26.0 - 34.0 PG 01/28/2017 12:14 PM CDT [facility] MCHC 32.5 31.0 - 37.0 G/DL 01/28/2017 12:14 PM CDT [facility] PLT 364(H) 150 - 350 x10'3/uL 01/28/2017 12:14 PM CDT [facility] OTHER (type in comments) 01/28/2017 6:00 AM CDT 01/28/2017 10:34 AM CDT Comment:SERUM SPECIMEN~WHOLE BLOOD SAMPLE us Generic Conversion Md [facility] Final R esult [facility] [address] [place] [address], from Last 3 Months or Most Recently Relevant to Health Maintenance Insurance [facility] Care Teams Computer Network And Systems Engineer Relationship Specialty Start Date End Date Carlos Fuller PA [facility] [place] [phone] PCP - General 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
--- OUTSIDE RECORDS SUMMARY | 2025-02-23 17:41 | XMS_ITS | Data Portability ---
Author Organization [facility] REBECCAMaru Crenshaw Address [address] [place] [address] Assessment Encounter Date Assessment Date Assessment LastModified by Organization Details LastModified Time 02/12/2023 02/12/2023 Advised patient to avoid using cocaine. [email or web address] Not available 02/12/2023 15:20:42 Plan of Treatment Reminders Order Date Submit Date Provider Last Modified By Organization Details Last Modified Time Details Appointments None recorded. Lab TSH, ultra-sensi tive, serum 2022 023 [facility], [address] [place] [address], [address], [place], [address], 3 06:17:35 HbA1c (hemoglobin A1c), blood 2022 023 [facility], [address] [place] [address], [address], [place], [address], 3 06:17:36 HbA1c (hemoglobin A1c), blood 2022 023 [facility], [address] [place] [address], [address], [place], [address], 3 11:16:09 TSH, ultra-sensi tive, serum 2022 023 [facility], [address] [place] [address], [address], [place], [address], 3 11:16:08 bacterial vaginosis + vaginitis panel, vaginal 2022 023 [facility], [address] [facility], [address], [place], [address], 3 11:16:07 Referral None recorded. Procedures None recorded. Surgeries None recorded. Imaging None recorded. Medication Orders Ozempic 0.25 mg or 0.5 mg (2 mg/3 mL) subcutaneou s pen injector 2023 024 [facility], [address] [place], [address], 4 12:04:50 trazodone 50 mg tablet 2023 024 [facility], [address] [place], [address], 4 12:04:52 omeprazole 20 mg capsule,del ayed release 2023 024 [facility], [address] [place], [address], 4 12:04:52 rosuvastati n 20 mg tablet 2023 024 [facility], [address] [place], [address], 4 12:04:50 albuterol sulfate HFA 90 mcg/actuati on aerosol inhaler 2023 024 [facility], [address] [place], [address], 4 12:04:51 Ozempic 0.25 mg or 0.5 mg (2 mg/1.5 mL) subcutaneou s pen injector 2022 023 [facility], [address] [place], [address], 3 15:21:07 metronidazo le 500 mg tablet 2022 023 [facility], [address] [place], [address], 3 13:04:34 Crestor 20 mg tablet 2022 023 [facility], [address] [place], [address], 3 13:04:31 amoxicillin 875 mg tablet 2022 023 [facility], [address] [place], [address], 15:04:45 Patient TargetsNo targets recorded. Patient Instructions Encounter Date Encounter Id Patient Instructions Last Modified By Organization Details Last Modified Time 02/12/2023 [id number] A healthy lifestyle: care instructions [facility] Not available 02/12/2023 15:27:05 Reason for Referral None Reported. Results Created Date Observation Date Name Description Value Unit Range Abnormal Flag Note LastModifiedBy Organization Detail LastModifiedTime 01/01/2012/31/2022 LIPID PANEL cholesterol, total 264 mg/dL 100-19 9 above high normal Not Available [facility] [address] [place], [address], 01/01/2023 06:17:29 01/01/2012/31/2022 LIPID PANEL triglyceride s 90 mg/dL 0-149 Not Available [facility] [address] [place], [address], 01/01/2023 06:17:29 01/01/2012/31/2022 LIPID PANEL HDL cholesterol 59 mg/dL 40-999 Not Available [facility] [address] [place], [address], 01/01/2023 06:17:29 01/01/20 23 12/31/2022 LIPID PANEL VLDL cholesterol estella 18 mg/dL 5-40 Not Available [facility] [address] [place], [address], 01/01/2023 06:17:29 01/01/20 23 12/31/2022 LIPID PANEL LDL chol calc (nih) 201 mg/dL 0-99 above high normal Not Available [facility] [address] [place], [address], 01/01/2023 06:17:29 01/01/20 23 12/31/2022 COMP. METAB OLIC PANEL (14) glucose 125 mg/dL 70-99 above high normal Not Available [facility] [address] [place] [address], [address], 01/01/2023 06:17:30 01/01/20 23 12/31/2022 COMP. METAB OLIC PANEL (14) BUN 13 mg/dL 6-24 Not Available [facility] [address] [place] [address], [address], 01/01/2023 06:17:30 01/01/20 23 12/31/2022 COMP. METAB OLIC PANEL (14) creatinine 0.71 mg/dL 0.76-1 .27 below low normal Not Available [facility] [address] [place], [address], 01/01/2023 06:17:30 01/01/20 23 12/31/2022 COMP. METAB OLIC PANEL (14) eGFR 102 >=60 Units for eGFR value s are mL/mi n/1.7 3 The eGFR Calcu latio n has not been valid ated for patie nts under the age of 18. If test resul ts are displ ayed for a patie nt under the age of 18, disre jackie that value . Not Available [facility] [address] [place], [address], 01/01/2023 06:17:30 01/01/20 23 12/31/2022 COMP. METAB OLIC PANEL (14) BUN/creatini ne ratio 28 01- Not Available [facility] [address] [place], [address], 01/01/2023 06:17:30 01/01/20 23 12/31/2022 COMP. METAB OLIC PANEL (14) sodium 140 mmol/ L 134-14 4 Not Available [facility] [address] [place], [address], 01/01/2023 06:17:30 01/01/20 23 12/31/2022 COMP. METAB OLIC PANEL (14) potassium 4.3 mmol/ L 3.5-5. 2 Not Available [facility] [address] [place], [address], 01/01/2023 06:17:30 01/01/20 23 12/31/2022 COMP. METAB OLIC PANEL (14) chloride 103 mmol/ L 96-106 Not Available [facility] [address] [place], [address], 01/01/2023 06:17:30 01/01/20 23 12/31/2022 COMP. METAB OLIC PANEL (14) carbon dioxide, total 21 mmol/ L 20-29 Not Available [facility] [address] [place], [address], 01/01/2023 06:17:30 01/01/20 23 12/31/2022 COMP. METAB OLIC PANEL (14) calcium 9.4 mg/dL 8.7-10 .2 Not Available [facility] [address] [place], [address], 01/01/2023 06:17:30 01/01/20 23 12/31/2022 COMP. METAB OLIC PANEL (14) protein, total 7.5 g/dL 6.0-8. 5 Not Available [facility] [address] [place], [address], 01/01/2023 06:17:30 01/01/20 23 12/31/2022 COMP. METAB OLIC PANEL (14) albumin 4.6 g/dL 3.8-4. 9 Not Available [facility] [address] [place], [address], 01/01/2023 06:17:30 01/01/20 23 12/31/2022 COMP. METAB OLIC PANEL (14) globulin, total 2.9 g/dL 1.5-4. 5 Not Available [facility] [address] [place], [address], 01/01/2023 06:17:30 01/01/20 23 12/31/2022 COMP. METAB OLIC PANEL (14) A/G ratio 2.0 1.2-2. 2 Not Available [facility] [address] [place] [address], [address], 01/01/2023 06:17:30 01/01/20 23 12/31/2022 COMP. METAB OLIC PANEL (14) bilirubin, total 0.4 mg/dL 0.0-1. 2 Not Available [facility] [address] [place] [address], [address], 01/01/2023 06:17:30 01/01/20 23 12/31/2022 COMP. METAB OLIC PANEL (14) alkaline phosphatase 89 IU/L 44-121 Not Available [facility] [address] [place] [address], [address], 01/01/2023 06:17:30 01/01/20 23 12/31/2022 COMP. METAB OLIC PANEL (14) AST (SGOT) 18 IU/L 0-[address] [facility] [address] [place] [address], [address], 01/01/2023 06:17:30 01/01/20 23 12/31/2022 COMP. METAB OLIC PANEL (14) ALT (SGPT) 20 IU/L 0-[address] [facility] [address] [place], [address], 01/01/2023 06:17:30 01/01/2012/31/2022 CBC, PLATE LET, NO DIFFE RENTI AL WBC 8.5 x10e3 /uL 3.4-10 .8 Not Available [facility] [address] [place], [address], 01/01/2023 06:17:31 01/01/2012/31/2022 CBC, PLATE LET, NO DIFFE RENTI AL RBC 4.35 x10e6 /uL 3.77-5 .28 Not Available [facility] [address] [place], [address], 01/01/2023 06:17:31 01/01/2012/31/2022 CBC, PLATE LET, NO DIFFE RENTI AL hemoglobin 13.0 g/dL 11.1-1 5.9 Not Available [facility] [address] [place], [address], 01/01/2023 06:17:31 01/01/2012/31/2022 CBC, PLATE LET, NO DIFFE RENTI AL hematocrit 41.3 % 34.0-4 6.6 Not Available [facility] [address] [place], [address], 01/01/2023 06:17:31 01/01/2012/31/2022 CBC, PLATE LET, NO DIFFE RENTI AL MCV 95 fL 79-97 Not Available [facility] [address] [place], [address], 01/01/2023 06:17:31 01/01/2012/31/2022 CBC, PLATE LET, NO DIFFE RENTI AL MCH 29.9 pg 26.6-3 3.0 Not Available [facility] [address] [place], [address], 01/01/2023 06:17:31 01/01/2012/31/2022 CBC, PLATE LET, NO DIFFE RENTI AL MCHC 31.5 g/dL 31.5-3 5.7 Not Available [facility] [address] [place], [address], 01/01/2023 06:17:31 01/01/2012/31/2022 CBC, PLATE LET, NO DIFFE RENTI AL RDW 13.0 % 11.5-1 4.5 Not Available [facility] [address] [place], [address], 01/01/2023 06:17:31 01/01/2012/31/2022 CBC, PLATE LET, NO DIFFE RENTI AL platelets 441 x10e3 /uL 150-45 0 Not Available [facility] [address] [place], [address], 01/01/2023 06:17:31 01/01/2012/31/2022 CBC, PLATE LET, NO DIFFE RENTI AL NRBC 0 % 0-0 Not Available [facility] [address] [place], [address], 01/01/2023 06:17:31 01/01/2001/01/2023 TSH RFX ON ABNOR MAL TO FREE T4 TSH 4.670 uIU/m L 0.450- 4.500 above high normal Not Available [facility] ([facility]) [address] [facility] [facility], [place], [address], 01/01/2023 08:33:38 01/01/2001/01/2023 T4F T4,free (direct) 1.30 NG/dL 0.82-1 .77 Not Available [facility] ([facility]) [address], [place], [address], 01/01/2023 08:33:39 01/21/2001/23/2023 NUSWA B BV KEN+C AND6+ CT/GC /T... atopobium vaginae Low - 0 score Not Available [facility] ([facility]) [address] [facility], [place], [address], 01/24/2023 11:16:07 01/21/20 23 01/23/2023 NUSWA B BV KEN+C AND6+ CT/GC /T... bvab 2 Low - 0 score Not Available [facility] ([facility]) [address] [facility] [facility], [place], [address], 01/24/2023 11:16:07 01/21/20 23 01/23/2023 NUA B [...] Drug Admin istra tion. Not Available [facility] ([facility]) [address] [facility] [facility], [place], [address], 01/24/2023 11:16:07 01/21/20 23 01/23/2023 NUSWA B BV KEN+C AND6+ CT/GC /T... christopher albicans, KEN Negati ve negati ve Not Available [facility] ([facility]) [address] [facility], [place], [address], 01/24/2023 11:16:07 01/21/20 23 01/23/2023 NUSWA B BV KEN+C AND6+ CT/GC /T... christopher glabrata, KNE Negati ve negati ve Not Available [facility] ([facility]) [address] [facility] [facility], [place], [address], 01/24/2023 11:16:07 01/21/20 23 01/23/2023 NUSWA B BV KEN+C AND6+ CT/GC /T... trich vag by KEN Negati ve negati ve Not Available [facility] ([facility]) [address] [facility], [place], [address], 01/24/2023 11:16:07 01/21/20 23 01/23/2023 NUSWA B BV KEN+C AND6+ CT/GC /T... chlamydia trachomatis, KEN Negati ve negati ve Not Available [facility] ([facility]) [address] [place], [address], 01/24/2023 11:16:07 01/21/20 23 01/23/2023 NUSWA B BV KEN+C AND6+ CT/GC /T... neisseria gonorrhoeae, KEN Negati ve negati ve Not Available [facility] ([facility]) [address] [place], [address], 01/24/2023 11:16:07 01/21/20 23 01/23/2023 NUSWA B BV KEN+C AND6+ CT/GC /T... hsv 1 KEN Negati ve negati ve Not Available [facility] ([facility]) [address] [place], [address], 01/24/2023 11:16:07 01/21/20 23 01/23/2023 NUSWA B BV KEN+C AND6+ CT/GC /T... hsv 2 KEN Negati ve negati ve Not Available [facility] ([facility]) [address] [place], [address], 01/24/2023 11:16:07 01/21/20 23 01/24/2023 NUSWA B BV KEN+C AND6+ CT/GC /T... C parapsilosis /tropicalis Negati ve negati ve This assay does not diffe renti ate C. tropi calis and C. parap rosaline is. Not Available [facility] ([facility]) [address] [facility], [place], [address], 01/24/2023 11:16:07 01/21/20 23 01/24/2023 NUSWA B BV KEN+C AND6+ CT/GC /T... christopher lusitaniae, KEN Negati ve negati ve Not Available [facility] ([facility]) [address] [facility], [place], [address], 01/24/2023 11:16:07 01/21/20 23 01/24/2023 NUSWA B BV KEN+C AND6+ CT/GC /T... christopher krusei, KEN Negati ve negati ve Not Available [facility] ([facility]) [address] [facility] [facility], [place], [address], 01/24/2023 11:16:07 01/21/20 23 01/21/2023 TSH RFX ON ABNOR MAL TO FREE T4 TSH - uIU/m L Test not perfo rmed. No speci men recei tiarra. Not Available [facility] ([facility]) [address] [facility], [place], [address], 01/24/2023 11:16:08 01/21/20 23 01/21/2023 HEMOG LOBIN A1C hemoglobin A1C - % Test not perfo rmed. No speci men recei tiarra. Predi abete s: 5.7 - 6.4 Diabe geo: >6.4 Glyce taylor contr ol for adult s with diabe geo: <7.0 Not Available [facility] ([facility]) [address] [place], [address], 01/24/2023 11:16:09 01/21/20 23 01/21/2023 SPECI MEN STATU S REPOR T specimen status report TNP Test not perfo rmed. No speci men recei tiarra. TEST: [id number] Hemog lobin A1c 08040 9 TSH Rfx on Abnor mal to Free T4 Not Available [facility] ([facility]) [address] [facility], [place], [address], 01/24/2023 11:16:07 02/04/20 23 02/04/2023 TSH RFX ON ABNOR MAL TO FREE T4 TSH 4.440 uIU/m L 0.450- 4.500 Not Available [facility] ([facility]) [address] [facility], [place], [address], 02/04/2023 06:17:35 02/04/20 23 02/04/2023 HEMOG LOBIN A1C hemoglobin A1C 5.9 % 4.8-5. 6 above high normal Predi abete s: 5.7 - 6.4 Diabe geo: >6.4 Glyce taylor contr ol for adult s with diabe geo: <7.0 Not Available [facility] ([facility]) [address] [facility], [place], [address], 02/04/2023 06:17:36 05/15/19 24 05/19/2023 Skin Patho logy biops y repor t pathology report.secti on heading Dermat opatho logy Report Case: [id number] Author izing Provid er: Jim Westbrook MD [facility] rasheed: 2023 12:00 AM Orderi ng Locati on: [facility] Receiv ed: 2023 12:53 PM Pathol ogist: Angie Masters MD Specim en: Skin, left upper chest Case Repor t [place] topat holog y Repor t Case: [id number] Autho rizin g Provi nikhil: Jim Serrano MD Colle cted: 05/15 12:00 AM Order ing Locat ion: [facility] Recei tiarra: 05/16 12:53 PM Patho logis t: Suzette Masters in [place] gerard MD Speci men: Skin, left upper chest 05/19 2:48 PM HOSPITAL PERSONNEL DIRECTOR [facility] Not [...] c descr iptio n) 05/19 2:48 PM HOSPITAL PERSONNEL DIRECTOR [facility] Elect alisha chicas rajeev d by Suzette Masters in [place] gerard MD on 024 at 2:48 PM Not Available Not Available 07/09/2024 03:33:17 05/15/19 24 05/19/2023 Skin Patho logy biops y repor t pathology report relevant history narrative AK vs BCCA. Path#[id number] Clini estella Histo ry AK vs BCCA. Path# [id number] 05/19 2:48 PM HOSPITAL PERSONNEL DIRECTOR [facility] Not [...] 4x2x1 mm. Jar 0. 05/19 2:48 PM HOSPITAL PERSONNEL DIRECTOR [facility] Not [...] kieran and revie wed. 05/19 2:48 PM HOSPITAL PERSONNEL DIRECTOR [facility] Not Available Not Available 07/09/2024 03:33:17 05/15/19 24 05/19/2023 Skin Patho logy biops y repor t service comment An chief of hospital medicine al and tax intern al positi ve and negati ve contro [...] by the Dermat opatho jesse guevara at [facility] carmina, direct ed by Dr. Neeraj Case . These tests need not be, and theref ore are not, approv ed by the [facility] Food and Drug Admini strati on. The tests are used for clinic al purpos es. Juniorin g Codes Specim en Charge s [place] s [id number] 1 Discl aimer An exter nal and [...] edda cteri stic deter mined by the [place] topat holog y Labor atory at [facility] , [facility] rasheed by Dr. Neeraj Jacobs. These tests need not be, and there fore are not, appro tiarra by the [facility] Food and Drug Admin istra tion. The tests are used for clini estella purpo ses. Brijesh ng Codes Speci men Charg [place] [id number] 1 05/19 2:48 PM HOSPITAL PERSONNEL DIRECTOR [facility] TOPAT [facility] AT[facility] Not Available Not Available 07/09/2024 03:33:17 05/15/19 24 05/19/2023 Skin Patho logy biops y repor t embedded images Embed ded Image s 05/19 2:48 PM HOSPITAL PERSONNEL DIRECTOR [facility] Not Available Not Available 07/09/2024 03:33:17 02/01/20 23 01/27/2023 XR, hip, unila teral No observ ation record ed. [facility] [address], [place], [address], 02/03/2023 14:15:15 Result Notes None recorded. Problems Name Problem SNOMED Code Status Onset Date Resolution Date Notes Provider Name and Address Organization Details Recorded Time Low back pain 892380909 Active Edsaurabh Fuller PA-C Attn: Pancho ponce,[address] [facility], [place], [address], [place] [facility] 6 14:02:41 Plantar fasciitis 805641333 Active Carlos Fuller PA-C Attn: Accountin g,[address] [facility], [place], [address], [place] [facility] 5 18:51:17 Herpes simplex 99972391 Active Carlos Fuller PA-C Attn: Accountin g,[address] [facility], [place], [address], [place] [facility] 5 12:49:48 Multiple actinic keratoses 831421286 Active Carlos Fuller PA-C Attn: Accountin g,[address] [facility], [place], [address], [place] [facility] 5 11:54:23 Fracture of ankle 96484437 Active Carlos Fuller PA-C Attn: Accountin g,[address] [facility], [place], [address], [place] [facility] 5 12:49:48 Hypothyroid ism 50961032 Active Carlos Fuller PA-C Attn: Accountin g,[address] [facility], [place], [address], [place] [facility] 6 10:44:46 Acute urinary tract infection 211670373 Active Carlos Fuller PA-C Attn: Accountin g,[address] [facility], [place], [address], [place] [facility] 6 17:18:27 Vitamin B12 level below reference range 813203949 Active Carlos Fuller PA-C Attn: Accountin g,[address] [facility], [place], [address], [place] [facility] 6 12:43:51 Vitamin D deficiency 65979439 Active Carlos Fuller PA-C Attn: Accountin g,[address] [facility], [place], [address], [place] [facility] 6 12:51:01 Anemia 273131939 Active Carlos Fuller PA-C Attn: Accountin g,[address] [facility], [place], [address], [place] [facility] 6 12:51:01 Vaginitis and vulvovagini tis Active Carlos Fuller PA-C Attn: Accountin g,[address] [facility], [place], [address], [place] [facility] 6 17:18:27 Upper respiratory infection 28533324 Active Carlos Fuller PA-C Attn: Accountin g,[address] [facility], [place], [address], [place] [facility] 6 12:00:46 Bronchitis 15400483 Active Carlos Fuller PA-C Attn: Accountin g,[address] [facility], [place], [address], [place] [facility] 6 14:31:51 Vertigo 055246827 Active Carlos Fuller PA-C Attn: Accountin g,[address] [facility], [place], [address], [place] [facility] 6 18:12:53 Allergic rhinitis 01182720 Active 2016 Carlos Fuller PA-C Attn: Accountin g,[address] [place], [address], [place] [facility] 7 17:10:30 Screening for disorder Active 2016 Carlos Fuller PA-C Attn: Accountin g,[address] [facility], [place], [address], [place] [facility] 7 17:13:58 Depressive disorder 38752978 Active 2016 Carlos Fuller PA-C Attn: Accountin g,[address] [facility], [place], [address], [place] [facility] 7 16:59:29 Sinusitis 86913401 Active 2016 Carlos Fuller PA-C Attn: Accountin g,[address] [facility] [place], [address], [place] [facility] 7 16:10:10 Acute bronchitis 98688701 Active 2017 Carlos Fuller PA-C Attn: Pancho g,[address] [facility], [place], [address], [place] [facility] 8 18:08:56 Attention deficit hyperactivi ty disorder, predominant ly inattentive type 85396355 Active 2017 Carlos Fuller PA-C Attn: Accountlawrence g,[address] [facility], [place], [address], [place] [facility] 8 18:24:48 Pain of left hip joint 4911073165184 00 Active 2017 Carlos Fuller PA-C Attn: Accountlawrence g,[address] [facility], [place], [address], [place] [facility] 8 17:17:31 Fibromyalgi a 548783653 Active 2017 Carlos Fuller PA-C Attn: Accountlawrence g,[address] [facility], [place], [address], [place] [facility] 8 17:38:52 Allergic reaction to insect bite Active 2017 Carlos Fuller PA-C Attn: Accountlawrence g,[address] [facility], [place], [address], [place] [facility] 8 17:43:26 Obese 906613533 Active 2017 Carols Fuller PA-C Attn: Accountlawrence g,[address] [facility], [place], [address], [place] [facility] 8 22:44:50 Gastroesoph ageal reflux disease 722495009 Active 2017 Carlos Fuller PA-C Attn: Accountlawrence g,[address] [facility], [place], [address], [place] [facility] 8 18:31:17 Dysuria 15878988 Active 2018 Carlos Fuller PA-C Attn: Accountin g,[address] [facility], [place], [address], [place] [facility] 9 17:38:38 Insomnia 861166615 Active 2018 Carlos Fuller PA-C Attn: Accountin g,[address] [facility], [place], [address], [place] [facility] 9 17:23:14 Constipatio n 13804813 Active 2018 Carlos Fuller PA-C Attn: Accountin g,[address] [facility], [place], [address], [place] [facility] 9 12:56:04 Chronic idiopathic constipatio n 16304825 Active 2018 Carlos Fuller PA-C Attn: Accountin g,[address] [facility], [place], [address], [place] [facility] 9 12:57:56 Urinary incontinenc e 482726463 Active 2018 Carlos Fuller PA-C Attn: Accountin g,[address] [facility], [place], [address], [place] [facility] 9 13:00:27 Acute sinusitis 36092574 Active 2018 Carlos Fuller PA-C Attn: Accountin g,[address] [facility], [place], [address], [place] [facility] 9 10:37:28 COVID-19 900837416 Active 2019 Carlos Fuller PA-C Attn: Accountin g,[address] [facility], [place], [address], [place] [facility] 0 12:09:12 Pneumonia caused by SARS-CoV-2 8799715203862 48356 Active 2019 Carlos Fuller PA-C Attn: Accountin g,[address] [facility], [place], [address], [place] [facility] 0 12:10:01 Hyperlipide fermín 67196605 Active 2020 Carlos Fuller PA-C Attn: Pancho ponce,[address] [facility], [place], [address] [facility] 1 10:51:41 High hemoglobin A1c level 884199457 Active 2020 Carlos Fuller PA-C Attn: Pancho ponce,[address] [facility], [place], [address], [place] [facility] 1 14:10:38 Nausea 499698661 Active 2021 Carlos Fuller PA-C Attn: Pancho ponce,[address] [place], [address] [facility] 2 12:21:19 Prolapsed cervical interverteb ral disc 794700390 Active 2021 Carlos Fuller PA-C Attn: Pancho ponce,[address] [facility], [place], [address] [facility] 2 16:01:02 Problem Notes None recorded. Medical Equipment None Reported. Allergies Allergen ID Allergen Name Allergen Category Reaction Reaction Severity Criticality Documentation Date Start Date Code Code System Note Provider Name and Address Organization Details Recorded Time 03705 Substance with sulfonami de structure and antibacte rial mechanism of action (substanc e) medicatio n edema moderate Not available 05/20/20162016 29047 [id number] SNSHARON Masters LPN null, [place] - [...] Not Available Not Available BD Regular Bevel [place] 18 gauge x 1 active Not Available [...] DateTime 07/22/2023 165.1 cm Orquidea Lira on, [facility] 07/22/2023 11:24:22 Date Recorded Body height Body mass index (BMI) Body weight Oxygen saturation Oxygen saturation in Arterial blood by Pulse oximetry Heart rate Systolic And Diastolic Provider Name and Address Organization Details Last Updated DateTime 3 165.1 cm 30.5 kg/m2 90643.4 g 98 % 98 % 81 /min 122/78 mm[Hg] Therese Jessica MA [facility] 3 12:20:19 Date Recorded Body height Body mass index (BMI) Body weight Oxygen saturation Oxygen saturation in Arterial blood by Pulse oximetry Heart rate Respiratory rate Systolic And Diastolic Provider Name and Address Organization Details Last Updated DateTime 3 165.1 cm 30.1 kg/m2 47094.2 2 g 98 % 98 % 80 /min 18 /min 122/78 mm[Hg] Therese Jessica MA [facility] 3 11:47:44 Date Recorded Body height Body mass index (BMI) Body weight Oxygen saturation Oxygen saturation in Arterial blood by Pulse oximetry Heart rate Systolic And Diastolic Provider Name and Address Organization Details Last Updated DateTime 3 165.1 cm 31.8 kg/m2 43872.1 4 g 99 % 99 % 75 /min 130/80 mm[Hg] Therese Jessica MA [facility] 3 14:26:08 Date Recorded Body height Body mass index (BMI) Body weight Oxygen saturation Oxygen saturation in Arterial blood by Pulse oximetry Heart rate Systolic And Diastolic Provider Name and Address Organization Details Last Updated DateTime 3 165.1 cm 31.3 kg/m2 38325.3 7 g 99 % 99 % 77 /min 128/80 mm[Hg] Therese Jessica MA [place] [facility] 3 12:05:08 Social History Question Answer Notes LastModified by Organizat ion Details LastModified Time Tobacco Smoking Status Former Smoker Quit in 2001 Caitlin Pugh MA null, [place] [facility] 02/07/2015 12:24:56 What Was The [...] virus, quadrivalent, preservative 5 completed Not Available [facility] 05/29/2019 02:44:47 Past Encounters Encounter ID Performer Location Encounter Start Date Encounter Closed Date Diagnosis/Indication Diagnosis SNOMED-CT Code Diagnosis ICD10 Code Diagnosis IMO Codes Diagnosis Note [id number] ANIA Tripathi (Adult Med) [address] [place] [address] [id number] 0 02/07/2015 12:05:26 02/07/2015 17:12:59 Herpes simplex 48301531 positive for one year . no outbreaks Multiple a ctinic keratoses 541452030 Fracture of ankle 12317522 June 2014, no pins. Hypothyroidism 07928288 Screening for disorder 912351296 exposed to 2 guys she dated had hepatitis c , neg x 3 . 4 months ago last test Active or passive immunization 345900447 [id number] MD Leon Ramirez (Adult Med) [address] [place] [address] [id number] 0 03/07/2015 11:33:27 03/07/2015 17:55:17 Hypothyroidism 26848972 E03.9 Active or passive immunization 021009377 Z23 Low back pain 928152772 M54.5 Multiple a ctinic keratoses 989039056 L57.0 [id number] ANIA Tripathi (Adult Med) [address] [place] [address] [id number] 0 05/31/2015 11:23:49 05/31/2015 16:06:21 Hypothyroidism 52307442 E03.9 Low back pain 535373144 M54.5 Vitamin B1 2 level below reference range 485362574 R79.9 Vitamin D deficiency 347 39483 E55.9 Anemia 303705285 D64.9 [id number] ANIA Tripathi (Adult Med) [address] [place] [address] [id number] 0 07/24/2015 12:09:21 07/24/2015 14:58:46 Anemia 928223511 D64.9 Vitamin B1 2 level below reference range 397843254 R79.9 Hypothyroidism 50977537 E03.9 Low back pain 458753170 M54.5 Vitamin D deficiency 347 54547 E55.9 [id number] ANIA Tripathi (Adult Med) [address] [place] [address] [id number] 0 10/16/2015 12:03:45 10/17/2015 10:01:03 Hypothyroidism 45034874 E03.9 Anemia 144535483 D64.9 Low back pain 616183700 M54.5 Vitamin D deficiency 347 73172 E55.9 [id number] MD Leon Ramirez (Adult Med) [address] [place] [address] [id number] 0 03/22/2016 10:08:58 03/22/2016 11:25:13 Low back pain 359019228 M54.5 Vitamin D deficiency 347 56056 E55.9 Hypothyroidism 92905671 E03.9 Anemia 640319191 D64.9 Vitamin B1 2 level below reference range 991813872 R79.9 [id number] MD Leon Ramirez (Adult Med) [address] [place] [address] 89109-026 0 11/07/2016 16:24:05 11/08/2016 09:31:39 Hypothyroidism 50633134 E03.9 Vitamin D deficiency 347 18844 E55.9 Vitamin B1 2 level below reference range 993320477 R79.9 Low back pain 989108506 M54.5 Allergic rhinitis 165938 04 J30.9 Screening for disorder 294917357 Z13.9 exposed to 2 guys she dated had hepatitis c , neg x 3 . 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 Hypothyroidism 86718952 E03.9 Vitamin D deficiency 347 70396 E55.9 [id number] Shelly Muñiz MD [facility] (Adult Med) [address] [place] [address] 27874-670 0 10/10/2017 16:57:01 10/10/2017 17:26:54 Pain of left hip joint 4564313650 36799 M25.223 [id number] [facility] [address] [place] [address] 40684-537 0 01/05/2018 16:43:27 01/06/2018 08:28:00 Fibromyalgia 138943000 M79.7 Allergic r eaction to insect bite 818332100 T78.40XA Depressive disorder 3548 9007 F32.89 Vitamin D deficiency 347 60858 E55.9 Obese 676044542 E66.9 Pain of le ft hip joint 0166412914 60424 M25.552 Plantar fasciitis 365846 [address] mora Low back pain 967384047 M54.5 Hypothyroidism 28972775 E03.9 [id number] MD Leon Ramirez (Adult Med) [address] [place] [address] [id number] 0 02/17/2018 18:03:14 02/19/2018 16:00:35 Fibromyalgia 280517855 M79.7 Gastroesop hageal reflux disease 825932337 K21.9 Anemia 970051575 D64.9 Vitamin D deficiency 347 67874 E55.9 Hypothyroidism 42663072 E03.9 Obese 621077162 E66.9 Depressive disorder 3548 9007 F32.89 Low back pain 137944966 M54.5 [id number] MD Leon Ramirez (Adult Med) [address] [place] [address] [id number] 0 12/15/2018 16:42:56 12/16/2018 09:36:06 Attention deficit hyperactivity disorder, predominantly inattentive type 97122980 F90.0 Depressive disorder 3548 9007 F32.89 Hypothyroidism 22178626 E03.9 Vitamin D deficiency 347 33675 E55.9 Fibromyalgia 957950390 M 79.7 Insomnia 662365563 G47.0 0 Pain of le ft hip joint 5188484120 22451 M25.105 [id number] MD Leon Ramirez (Adult Med) [address] [place] [address] 75581-725 0 01/08/2019 12:10:38 01/08/2019 14:41:57 Constipation 77371045 K59.00 Chronic id iopathic constipation 06716291 K59.04 Urinary incontinence 165 136949 R32 Depressive disorder 3548 9007 F32.89 Insomnia 003347069 G47.0 0 Gastroesop hageal reflux disease 006190739 K21.9 Vitamin D deficiency 347 83489 E55.9 Hypothyroidism 54645848 E03.9 Allergic rhinitis 651636 04 J30.9 [id number] MD Leon Ramirez (Adult Med) [address] [place] [address] [id number] 0 01/19/2019 11:04:08 01/20/2019 09:47:44 Pain of left hip joint 2115090901 79145 M25.552 Insomnia 042148663 G47.0 0 Gastroesop hageal reflux disease 936436694 K21.9 Depressive disorder 3548 9007 F32.89 Allergic rhinitis 942751 04 J30.9 Anemia 259145302 D64.9 Low back pain 662725151 M54.5 Vitamin D deficiency 347 81596 E55.9 Hypothyroidism 32999558 E03.9 [id number] Shelly Muñiz MD [facility] (Adult Med) [address] [place] [address] 60702-182 0 01/07/2020 16:55:41 01/10/2020 17:55:49 Low back pain 305039318 M54.5 Gastroesop hageal reflux disease 050923193 K21.9 Urinary incontinence 165 683136 R32 Chronic id iopathic constipation 80273960 K59.04 Insomnia 468892037 G47.0 0 Fibromyalgia 986296803 M 79.7 Depressive disorder 3548 9007 F32.89 Allergic rhinitis 094743 04 J30.9 Vitamin B1 2 level below reference range 737659628 R79.9 Vitamin D deficiency 347 76890 E55.9 Hypothyroidism 52187351 E03.9 [id number] Shelly Muñiz MD [facility] (Adult Med) [address] [place] [address] 75020-376 0 03/08/2020 12:14:02 03/09/2020 11:30:27 COVID-19 343385673 U07.1 Discussed with patient, agreed to try medication s as ordered, also been advised to go to close ER any time for any concern. [id number] Shelly Muñiz MD [facility] (Adult Med) [address] [place] [address] [id number] 0 07/21/2020 08:11:40 07/21/2020 11:08:19 Allergic rhinitis 49895352 J30.9 Anemia 984265697 D64.9 Attention deficit hyperactivity disorder, predominantly inattentive type 02601576 F90.0 Chronic id iopathic constipation 67657318 K59.04 Vitamin B1 2 level below reference range 436484628 R79.9 Depressive disorder 3548 9007 F32.89 Fibromyalgia 746907248 M 79.7 Gastroesop hageal reflux disease 605403016 K21.9 Hypothyroidism 46901382 E03.9 Insomnia 579715947 G47.0 0 Low back pain 194870140 M54.5 Vitamin D deficiency 347 31494 E55.9 Hyperlipidemia 11114800 E78.5 [id number] MD Leon Ramirez (Adult Med) [address] [place] [address] [id number] 0 08/15/2021 12:00:06 08/16/2021 11:19:22 Sinusitis 74228489 J32.9 Low back pain 878975498 M54.[address] Fuller is out of the office, to prevent interrupti on of therapy and withdrawal , I have refilled the Hydrocodon eILPMP reviewedUD S neededCDA 01/18/2019 Acute sinusitis 61375392 J01.90 Allergic rhinitis 941499 04 J30.9 Insomnia 645071333 G47.0 0 Gastroesop hageal reflux disease 164690218 K21.9 Nausea 134371503 R11.0 Hypothyroidism 72082780 E03.9 High hemog lobin A1c level 253616112 R73.09 Hyperlipidemia 62329571 E78.5 Vitamin B1 2 level below reference range 027675348 R79.9 Depressive disorder 3548 9007 F32.89 Fibromyalgia 897194522 M 79.7 Vitamin D deficiency 347 31743 E55.9 [id number] MD Leon Ramirez (Adult Med) [address] [place] [address] 53266-653 0 02/26/2022 10:38:25 02/27/2022 13:14:17 Acute bronchitis 95849125 J20.9 Allergic rhinitis 055254 04 J30.9 Vitamin B1 2 level below reference range 286257339 R79.9 Fibromyalgia 243662982 M 79.7 Gastroesop hageal reflux disease 972457950 K21.9 Hyperlipidemia 06414996 E78.5 Hypothyroidism 79017713 E03.9 Insomnia 974587363 G47.0 0 Prolapsed cervical intervertebral disc 349099325 M50.20 Vitamin D deficiency 347 83510 E55.9 [id number] MD Leon Boyd (Adult Med) [address] [place] [address] 55766-566 0 07/02/2022 10:51:52 07/03/2022 10:26:01 Obesity 797263931 E66.9 Depression screening 171 951630 Z13.31 1 Acute otit is externa of right ear 1820259130 369172 H60.501 Gastroesop hageal reflux disease without esophagitis 263098824 K21.9 Chronic cough 72916016 R 05.3 Dyspnea 503840765 R06.00 Continue Albuterol inhaler as needed. Acute bact erial sinusitis 64784708 J01.90 Adjustment disorder with depressed mood 16353689 F43.21 Body mass index 30+ - obesity 665408750 Z68.30 [id number] MD Leon Boyd (Adult Med) [address] [place] [address] 26431-415 0 12/30/2022 14:58:21 01/03/2023 10:28:36 Obesity 941537929 E66.9 Pain of ri ght hip joint 4057184840 40595 M25.551 Proceed with x-ray for further evaluation . Follow up in two weeks. Hypothyroidism 01473449 E03.9 Has not been taking medication . Will return tomorrow morning for fasting labs and TSH. Difficulty sleeping 3013 11646 Z72.820 Hyperlipid emia screening 781885813 Z13.306 [id number] MD Leon Boyd (Adult Med) [address] [place] [address] 02020-186 0 01/20/2023 12:10:13 01/21/2023 10:31:52 Abnormal vaginal odor 15781448 N89.8 Serous otitis media 8032 7007 H65.01 [...] will follow up in two weeks. Hyperglycemia 92071876 R 73.9 Elevated fasting glucose. Will check Hemoglobin A1C. Serum thyr oid stimulating hormone level outside reference range 840077651 R89.1 Patient would like to be treated with thyroid medication . TSH was barely elevated. Will repeat TSH. Hypercholesterolemia 136 69833 E78.00 LDL greater than 190. Will start high dose lipid. Repeat chlolester ol and check LFTs in eight weeks. Pain of ri ght hip joint 4794312669 18113 M25.551 Will get right hip xray. Will get records from pain management person. Painful mouth 941481207 K13.79 Unsure of etiology. Some symptoms sounded [...] or if she develops any skin lesions. [id number] MD Leon Boyd (Adult Med) [address] [place] [address] [id number] 0 02/03/2023 11:36:46 02/10/2023 13:07:39 Laboratory test result abnormal 269163584 R89.9 Plantar fa sciitis of left foot 0541510146 0953681 M72.2 Will follow up with specialist for possible injection Trochanter ic bursitis of right hip 7482020605 33125 M70.61 Seeing dial painter . Will work on weight loss and diet control which could be contributi ng factors. Discussed with patient. Hyperglycemia 75813277 R 73.9 Elevated fasting glucose. Will check Hemoglobin A1C. Discussed diet. Consider Ozempic which will help with weight loss and glucose. Follow up in one to two weeks. Body mass index 30+ - obesity 370483065 Z68.30 Discussed diet. Patient is unable to do much exercise at this time due to pain. Mentioned the Mediterran uy diet. Consider putting her back on Ozempic which has helped with weight loss in the past and will help with glucose control. Anxiety 58277533 F41.9 Patient appears anxious. Somewhat rapid speech. Discuss further at follow up. [id number] MD Leon Boyd (Adult Med) [address] [place] [address] [id number] 0 02/12/2023 14:03:12 02/21/2023 13:49:58 Bipolar disorder 13429908 F31.9 Advised her to make sure to keep regular appointmen ts with her psychiatri st and continue to discuss her concerns about impulsive behavior. Hyperglycemia 80424087 R 73.9 Elevated fasting glucose just at borderline of prediabete s and diabetes and Hemoglobin A1C was prediabete s. Patient is going to work on diet. Will start patient on Ozempic for glucose control and weight loss. Body mass index 30+ - obesity 329077263 Z68.30 Elevated BMI and elevated fasting glucose at borderline for diabetes. Will start patient on Ozempic for weight control and glucose control. Patient has taken this medication before. Will also work on diet. Follow up in one month. Anxiety 46886474 F41.9 Adjustment disorder with mixed emotional features 47980025 F43.23 We discussed the episodes of vomiting and passing out. These followed a very stressful event and were likely related to extreme anxiety and panic causing nausea and vomiting followed by vasovagal. She will let me know if she has any further episodes. [id number] [facility] [address] [place] [address] 14206-587 0 03/14/2023 11:50:53 03/18/2023 11:49:17 Body mass index 30+ - obesity 961041616 Z68.30 Started Ozempic. Continue to work on Diet. Recommend Mediterran yu diet. Follow up in one month. Reduced libido 3678740 R 68.82 Will get records from other provider. Will check on reasons for treating with Allopurino l. Explained to patient that it will not work for her to have two primary care providers and she does understand that. She said she sees this provider for her women's health care. Hypothyroidism 02226353 E03.9 Most recent TSH normal. Continue present thyroid medication . Bipolar disorder 8060565 4 F31.9 Strongly encouraged patient to make [...] appointmen t she can let me know. [id number] MD Leon Boyd (Adult Med) [address] [place] [address] 81870-152 0 07/22/2023 11:06:49 07/24/2023 21:13:32 Drug abuse 29607996 F19.10 Going to rehab today. Follow up with me after rehab. Difficulty sleeping 3013 32511 Z72.820 Continue Trazadone to help with sleep. Hypercholesterolemia 136 87170 E78.00 Needs refill on cholestero l medication . Will need to repeat lipids and LFTs once she follows up when she is out of rehab. Gastroesop hageal reflux disease without esophagitis 184621823 K21.9 Needs refill on Omeprazole . Hyperglycemia 40939482 R 73.9 Tolerating Ozempic well. Increase to .5 mg weekly. Dyspnea 511298225 R06.00 Continue Albuterol inhaler as needed. Acute bronchitis 2052998 2 J20.9 Health Concerns Section Related Observation LastModified by Organization Detai ls LastModified Time None Recorded Concern Status LastModified by Organization Details LastModified Time None Recorded Advance Directives Directive None Recorded Payers Insurance Date Sequence Insurance Name Policy Number Policy Barth Covered Member ID Barth Member ID Guarantor Name 12/30/2022 2 *SELF PAY* Pa wendi Ferrell 12/30/2022 1 [facility] (O) [id number] Hope Ferrell [id number] Hope Ferrell 12/30/2022 1 [facility] Hope Ferrell [id number] Hope Ferrell 12/30/2022 1 [facility] (POS) Hope Ferrell [id number] Hope Ferrell 12/30/2022 1 [employer] [id number] Hope Ferrell [id number] Hope Ferrell 12/30/2022 1 [facility] - DUAL OPTIONS (MEDICARE - MEDICAID REPLACEMENT HMO) [id number] Hope Wang [id number] Hope Ferrell 08/11/2023 1 [facility] (MEDICAID HMO) [id number] Hope Wang [id number] Hope Ferrell 12/30/2022 1 [facility] - DOS PRIOR TO 2020 (MEDICAID REPLACEMENT - HMO) Hope Ferrell [id number] Hope Ferrell 12/30/2022 1 [facility] [employer] (PPO) [id number] Hope Ferrell [id number] Hope Ferrell 12/30/2022 1 [facility] [id number] Hope Ferrell [id number] Hope Ferrell 07/07/2024 1 [facility] [id number] Enrique Ferrell [id number] Hope Ferrell Notes Date Note Type Note Provider Name and Address Organization Details Recorded Time 01/20/2023 text/html ROS as noted in the HPI did not get hip xray, took Naprosyn [...] stress right now, recently got back from [place] Ele rGeen MD Attn: [address]ing[address] [place], [address], [facility] 01/20/2023 17:42:27 02/03/2023 text/html ROS as noted in the HPI follow up, concerned about thyroid, was told [...] resolved Ele Green MD Attn: Accounting[address] [place], [address], [facility] 02/06/2023 13:38:13 02/12/2023 text/html ROS as noted in the HPI had a difficult weekend, painting over the [...] Ele Green MD Attn: Accounting[address] [facility], [place], [address], [facility] 02/12/2023 17:40:41 03/14/2023 text/html started a new job, went to pain management this morning, got [...] Ozempic Ele Green MD Attn: Accounting[address] [facility], [place], [address], [facility] 03/14/2023 13:15:43 07/22/2023 text/html ROS as noted in the HPI rough last few days, going in to [...] ears Ele Green MD Attn: Accounting[address] [facility], [place], [address], [facility] 07/22/2023 12:08:21 OBGyn Episode No OBEpisode recorded.
--- OUTSIDE RECORDS SUMMARY | 2025-02-23 17:42 | XMS_ITS | Clinical Summary ---
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 Gender Identity Not on file Sexual Orientation Not on file Obstetrics History Last Filed Vital Signs Vital Sign Reading Time Taken Comments Blood Pressure 101/61 09/13/2022 12:42 PM CDT Pulse 98 09/13/2022 12:42 PM CDT Temperature 36.5 C (97.7 F) 09/13/2022 12:42 PM CDT Respiratory Rate 18 07/01/2023 9:00 AM RE[employer]ERATION [employer] C[employer] INSULATOR Oxygen Saturation 96% 09/13/2022 12:42 PM CDT room air Inhaled Oxygen Concentration - - Weight 83.5 kg (184 lb) 07/01/2023 9:00 AM RE[employer]ERATION [employer]ANT CORK INSULATOR Height 162.6 cm (5' 4) 07/01/2023 9:00 AM RE[employer]IGERATION PLANT CORK INSULATOR Body Mass Index 31.58 07/01/2023 9:00 AM RE[employer]ERATION [employer]ANT CORK INSULATOR Plan of Treatment Health Maintenance Due Date [...] 2) 2020 Covid-19 Vaccine (2 - season) 01/10/202507/2020 Influenza Vaccine (#1) 2025 7, 01/23/2016, 02/07/2015 Insurance [facility] H[facility]/PPO Address: [place] [id number] [facility] H[facility]/PPO Address: [address] [address] Care Teams Central Office Equipment Engineer Relationship Specialty Start Date End Date Ele Green MD PCP - General Emergency Medicine 07/11/22
== END 2025-02-23 16:08 | disposition home or self-care (01) ==
DX: M54.6 Pain in thoracic spine (principal)
CPT/HCPCS: 72128

== ENCOUNTER 2025-03-10 15:33 | Outpatient (CLI) | payer OTHER, SELFPAY ==
--- NOTE | ~2025-03-10 | US_ITS ---
PROCEDURE: Bilateral renal ultrasound complete INDICATION: cyst of kidney, acquired COMPARISON: CT from 2021 FINDINGS: Left kidney: There is no hydronephrosis. Right kidney: There is mild right pyelocaliectasis. There are small cysts seen bilaterally. No solid masses are identified. IMPRESSION: Small bilateral cysts. No solid masses are identified. There is mild right pyelocaliectasis. Reviewed, dictated and finalized at location A. IMPRESSION: Small bilateral cysts. No solid masses are identified. There is mild right pyel ocaliectasis.
--- OUTSIDE RECORDS SUMMARY | 2025-03-10 15:44 | XMS_ITS | Clinical Summary ---
Author Organization [facility] Address [address] [place] [address] Care Team Providers Care Client Relation Specialist Name Role Phone Job Fuller APRN-JOSÉ MIGUEL Unavailable [phone] Job Fuller APRN-JOSÉ MIGUEL Primary Care Provider Source Comments [facility],non-owned Affiliates and Associated Physician Practices is amultiple site organization consisting of ambulatory clinics and hospital sitesin [place], [place], [place] and [place]. This disclosure is being madepursuant to the Care Everywhere program and may not contain all information available regarding this patient. Last updated 18.[facility] Allergies Active Allergy Reactions Criticality Noted [...] PM CDT Pulse 105 07/07/2020 10:58 AM SUPERVISOR TAPING Temperature 36.1 C (97 F) 07/07/2020 10:58 AM SUPERVISOR TAPING Respiratory Rate 20 06/02/2020 9:05 AM SUPERVISOR TAPING Oxygen Saturation 96% 07/07/2020 10:58 AM SUPERVISOR TAPING Inhaled Oxygen Concentration - - Weight 67.2 [...] HIV SCREENING 1985 HEPATITIS C SCREENING 03/11/1988 DIABETES-SERUM CREATININE 1988 DTAP/TDAP/TD VACCINES (1 - Tdap) 1989 HEPATITIS B VACCINE (1 of 3 - 19+ 3-dose series) 1989 PNEUMOCOCCAL VACCINE 50+ (1 of 2 - PCV) 1989 PAP SMEAR 1991 DIABETES-STATIN 2010 ZOSTER VACCINE (1 of 2) 2020 DIABETES - URINE PROTEIN SCREENING 05/12/2024 DIABETES RETINOPATHY SCREENING 10/01/2024 DIABETES-FOOT EXAM WITH MONOFILAMENT 10/01/2024 DIABETES-HGB A1C 10/01/2024 COVID-19 VACCINE (2 - 2024-2 6 season) [...] patient's age to complete this topic Insurance [facility] Member Subscriber Plan / Payer (Ef fective 2024-Present) Name:Hope Barnett Relation to Subscriber:Spouse Name:ENRIQUE BARNETT Date of :1965 Address: [place] [address] Payer ID:[id number] (NAIC) Type:PPO Address: [address] * Guarantor: HOPE BARNETT Account Type Relation to Patient Date of Phone Billing Address Personal/Family [place] [address] [facility] * Guarantor: HOPE BARNETT Account Type Relation to Patient Date of Phone Billing Address Personal/Family [address] [place] [address] * Guarantor: HOPE BARNETT Account Type Relation to Patient Date of Phone Billing Address Personal/Family [address] [place] [address] Care Teams Client Relation Specialist Relationship Specialty Start Date End Date Job Fuller APRN-CNP [address] [place] [address] PCP - General 06/06/20 Job Fuller APRN-CNP [address] [place] [address] 05/29/20
--- OUTSIDE RECORDS SUMMARY | 2025-03-10 15:44 | XMS_ITS | Patient Health Record ---
Author Organization [facility] Address [address] [place] [address] Care Team Providers Care Precision Machinist Name Role Phone Won Forbes MD Primary Care Provider Loi Lee Unavailable [phone] Allergies Allergen (clinical drug ingredient) Drug/Non Drug Allergy documented on EMR Reaction Allergy Type Onset Date Status Substance with sulfonamide structure and antibacterial mechanism of action (substance) SULFA (SULFONAMIDE ANTIBIOTICS) (uncoded) Unknown Allergy 05/30/2023 Active Reason For Referral No Information Medications Medication SIG (Take, Route, Frequency, Duration) Notes Start Date End Date Status traZODone HCl 100 MG Tablet 1 tablet Orally Once a day; Duration: 90 days As needed 02/25/2025 Active Ozempic (1 MG/DOSE) 4 MG/3ML Solution Pen-injector Subcutaneous *Pick strength-form from TV Pixie for eRX* 06/30/2023 Active LUER-ASHLEY SYRINGE-NEEDLE 3 mL 25 gauge x 1 SYRINGE, EMPTY DISPOSABLE MISCELLANEOUS *Reorder from [employer] for eRx and Interaction Alerts* 06/30/2023 Active Depo-Estradiol 5 mg/mL Oil Intramuscular 06/30/2023 Active LUER-ASHLEY SYRINGE-NEEDLE 3 mL 18 x 1 1/2 SYRINGE, EMPTY DISPOSABLE MISCELLANEOUS *Reorder from [employer] Hotel[employer] for eRx and Interaction Alerts* 06/30/2023 Active Testosterone Cypionate 200 MG/ML Solution Intramuscular 06/30/2023 Active Amphetamine-Dextroam phet ER 30 MG Capsule Extended Release 24 Hour 1 capsule every morning Orally Once a day; Duration: 30 days 02/25/2025 Active Caplyta 21 MG Capsule 1 capsule Oral Once a day; Duration: 30 days 02/25/2025 Active Immunizations Vaccine Route Administration Date Status [...] decision-maker Yes Do you have Power of [employer] or [facility]? No Tobacco Use: Social Info Question Answer [...] Notes Problem Mixed bipolar affective disorder, moderate (334821961) Bipolar disorder, current episode mixed, moderate (F31.62) Active confirmed Problem Generalized anxiety disorder (68838407) Generalized anxiety disorder (F41.1) Active confirmed Problem Primary insomnia (7514673) Primary insomnia (F51.01) Active confirmed Problem Attention deficit hyperactivity disorder (109684233) Attention-deficit hyperactivity disorder, unspecified type (F90.9) Active confirmed Vital Signs Heart Rate 75 /min 02/25/2025 Blood pressure diastolic 80 mm Hg 02/25/2025 Height-cm 170.18 cm 02/25/2025 Weight-kg 66.23 kg 02/25/2025 Height 67.00 in 02/25/2025 Blood pressure systolic 122 mm Hg 02/25/2025 Weight 146 lbs 02/25/2025 BMI 22.86 kg/m2 02/25/2025 Encounters Encounter [facility] Date [facility] [address] [address] 03/26/2024 Loi Carvajal Generalized anxiety disorder F41.1 ; Bipolar disorder, current episode mixed, moderate F31.62 ; Primary insomnia F51.01 and Attention-deficit hyperactivity disorder, unspecified type F90.9 [facility], [facility] [address] [place] [address] 08/23/2024 Loi Carvajal Generalized anxiety disorder F41.1 ; Bipolar disorder, current episode mixed, moderate F31.62 ; Primary insomnia F51.01 and Attention-deficit hyperactivity disorder, unspecified type F90.9 [facility] [address] [place] [address] 12/03/2024 Loi Carvajal Generalized anxiety disorder F41.1 ; Bipolar disorder, current episode mixed, moderate F31.62 ; Primary insomnia F51.01 and Attention-deficit hyperactivity disorder, unspecified type F90.9 [facility] [address] [place] [address] 02/25/2025 Loi Carvajal Generalized anxiety disorder F41.1 ; Bipolar disorder, current episode mixed, moderate F31.62 ; Primary insomnia F51.01 and Attention-deficit hyperactivity disorder, unspecified type F90.9 [facility], [facility] [address] [place] [address] 03/29/2024 Loi Carvajal Attention-deficit hyperactivity disorder, unspecified type F90.9 [facility] [address] [place] [address] 05/03/2024 Loi Carvajal Attention-deficit hyperactivity disorder, unspecified type F90.9 [facility] [address] [place] [address] 06/11/2024 Loi Carvajal Attention-deficit hyperactivity disorder, unspecified type F90.9 [facility], [facility] [address] [place] [address] 07/22/2024 Loi Carvajal Attention-deficit hyperactivity disorder, unspecified type F90.9 [facility] [address] [place] [address] 08/18/2024 Loi Carvajal Attention-deficit hyperactivity disorder, unspecified type F90.9 [facility], [facility] [address] [place] [address] 10/12/2024 Loi Carvajal Attention-deficit hyperactivity disorder, unspecified type F90.9 [facility] [employer] [address] [place] [address] 12/24/2024 Loi Carvajal Attention-deficit hyperactivity disorder, unspecified type F90.9 Assessments Encounter Date Diagnosis (ICD Code) Assessment Notes Treatment Notes Treatment Clinical Notes Section Notes 05/03/2024 Attention-defic it hyperactivity disorder, unspecified type (ICD-10 - F90.9) 06/11/2024 Attention-defic it hyperactivity disorder, unspecified type (ICD-10 - F90.9) 08/23/2024 Generalized anxiety disorder (ICD-10 - F41.1) stable 03/26/2024 Generalized anxiety disorder (ICD-10 - F41.1) [...] to assess patient's progress and medication needs 10/12/2024 Attention-defic it hyperactivity disorder, unspecified type (ICD-10 - F90.9) 12/03/2024 Generalized anxiety disorder (ICD-10 - F41.1) stable 12/24/2024 Attention-defic it hyperactivity disorder, unspecified type (ICD-10 - F90.9) 02/25/2025 Generalized anxiety disorder (ICD-10 - F41.1) stable 08/18/2024 Attention-defic it hyperactivity disorder, unspecified type (ICD-10 - F90.9) 07/22/2024 Attention-defic it hyperactivity disorder, unspecified type (ICD-10 - F90.9) 03/29/2024 Attention-defic it hyperactivity disorder, unspecified type (ICD-10 - F90.9) 02/25/2025 Bipolar disorder, current episode mixed, moderate (ICD-10 - F31.62) 12/03/2024 Bipolar disorder, current episode mixed, moderate [...] current episode mixed, moderate (ICD-10 - F31.62) 08/23/2024 Primary insomnia (ICD-10 - F51.01) trazodone 100mg hs prn 03/26/2024 Primary insomnia (ICD-10 - F51.01) trazodone [...] to assess patient's progress and medication needs 12/03/2024 Primary insomnia (ICD-10 - F51.01) trazodone 100mg hs prn 02/25/2025 Primary insomnia (ICD-10 - F51.01) trazodone 100mg hs prn 02/25/2025 Attention-defic it hyperactivity disorder, unspecified type (ICD-10 - F90.9) 12/03/2024 Attention-defic it hyperactivity disorder, unspecified type [...] assess patient's progress and medication needs 08/23/2024 Attention-defic it hyperactivity disorder, unspecified type (ICD-10 - F90.9) 08/23/2024 Arti Ferrell, a female patient with [...] efforts have been made to correct them. 02/25/2025 Arti Ferrell reports stable mood on current psychiatric medication with recent resolution of previous concerns about medication effectiveness, along with ongoing chronic back pain requiring new pain management. Bipolar disorder Assessment: Patient reports stable mood on current regimen. Previously experienced concerns that medication was not working effectively, but attributes this to situational stressors including work and family issues that caused feelings of being overwhelmed. These stressors have resolved and mood has stabilized. Patient discontinued trazodone due to improved sleep without requiring sleep aid. Has Adderall prescriptions available but not currently taking, considering resuming during winter months for mood support. Patient has maintained sobriety for over one month and expresses concern about maintaining mental health stability during upcoming cold, dark winter months. Plan: - Continue Caplyta 21 mg - Refill medications for 3-month supply the note is transcribed using speech recognition software. It is a reflection of a visit with the patient. It might have some inaccuracy, including medication names and transcribing errors, though efforts have been made to correct them. Plan Of Treatment Pending Test Test Name Order Date ADHD Testing 12/03/2023 Next Appt Details Provider Name:Loi franks, 05/20/2025 08:45:00 AM, [address], [address], [place], [address], Insurance Providers Payer Name Payer Address Payer Phone Subscriber Number Group Number Insured Name Patient Relationship to Insured Coverage Start Date Coverage End Date [facility] [address] [address] [place] [address] [id number] FERRELLGINO MURDOCKA Self - [facility] the [facility] [address] [address] [place] [address] [id number] GINO FERRELLA Self - patient is the [...] Normal Surgical History Surgery Date(Month/Year) Tonsilectomy/adenoids Tonsillectomy ([id number]) 05/12/2009
--- OUTSIDE RECORDS SUMMARY | 2025-03-10 15:45 | XMS_ITS | Encounter Summary ---
Author Organization [facility] Address [address] [place] [address] Care Team Providers Care Php Mysql Developer Name Role Phone Job Fuller APRN-JAVASCRIPT UI DEVELOPER Unavailable [phone] Job Fuller FURNACE LOADER-JAVASCRIPT UI DEVELOPER Primary Care Provider Encounter Details Date Type Department Care Team (Late st Contact Info) Description 05/16/2023 Lab Requisition [facility] - DermPath Lab [address] [place] [address] Jim Westbrook MD [address] [place] [address] Social History Tobacco Use Types Packs/Day [...] Comments DERMATOPATHOLOGY Routine 05/15/2023 12:0 0 AM PAYROLL MACHINE OPERATOR documented in this encounter Results * DERMATOPATHOLOGY (05/15/2023 12:00 AM PAYROLL MACHINE OPERATOR) Case Report Dermatopathology Report Case: [id number] Authorizing Provider: Jim Westbrook MD Collected: 05/15/2023 12:00 AM Ordering Location: [facility] DermPath Lab Received: 05/16/2023 12:53 PM Pathologist: Alisia Masters MD Specimen: Skin, left upper chest 2:48 PM [facility]MAT[facility] Final Diagnosis Specimen A. SKIN, left upper chest: HYPERPLASTIC (HYPERTROPHIC) ACTINIC KERATOSIS WITH ACANTHOLYTIC FEATURES (L57.0) (see microscopic description) 2:48 PM [facility] DERMATOPATHOLOGY [facility]OR[facility] at 1448 PAYROLL MACHINE OPERATOR Clinical History AK vs BCCA. Path#[id number] 2:48 PM [facility]MAT[facility] Gross Description Specimen A: Received is one formalin filled container labeled with the patient's name and designated left upper chest. The specimen consists of a shave biopsy measuring 4x2x1 mm. Jar 0. 2:48 PM [facility]MAT[facility] Microscopic Description Specimen A. SKIN, left upper chest: There is hyperkeratosis alternating with parakeratosis. There is epidermal hyperplasia with disorderly maturation of keratinocytes with nuclear pleomorphism confined to the lower half of the epidermis. Focally there is a suprabasilar cleft with acantholytic cells. Additional deeper sections were obtained and reviewed. 2:48 PM [facility] Disclaimer An external and internal positive and negative controls are appropriate for the histochemical, immunohistochemical and immunofluorescence stain(s) in this case (if any), except where stated explicitly. The performance characteristics of the stain(s) cited in this report were developed and its performance characteristic determined by the Dermatopathology Laboratory at [facility], directed by Dr. Neeraj Case. These tests need not be, and therefore are not, approved by the [place] Food and Drug Administration. The tests are used for clinical purposes. Billing Codes Specimen Charges Stain Charges 11564 1 2:48 PM [facility] Embedded Images 2:48 PM [facility] Pathology/Cytolog y TISSUE SPECIMEN FROM SKIN / Unknown 05/15/2023 05/16/2023 12:53 PM PAYROLL MACHINE OPERATOR us Jim Westbrook MD LAB - PATHOLOGY/CYTOLOGY ORDER KERON Final Result DERMATOPATHOLOGY LABORATORY [facility] - Department of Dermatology [address] [place] [address], [facility] [phone] documented in this encounter Visit Diagnoses Not on filedocumented in this encounter Care Teams Php Mysql Developer Relationship Specialty Start Date End Date Job Fuller APRN-CNP [address] [place] [address] PCP - General 06/06/20 Job Fuller APRN-CNP [address] [place] [address] 05/29/20 documented as of this encounter
--- OUTSIDE RECORDS SUMMARY | 2025-03-10 15:45 | XMS_ITS | Data Portability ---
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 Lab testosteron e, total, serum 2023 [facility] (Lab), [address] [place], [address], 4 13:06:30 testosteron e, free, serum 2023 024 [facility] (Lab), [address] [place], [address], 4 13:06:31 CMP, serum or plasma 2023 024 [facility] (Lab), [address], [place], [address], 4 13:06:30 hormone panel, serum or plasma 2023 024 [facility] (Lab), [address], [place], [address], 4 11:58:04 Referral None recorded. Procedures None recorded. Surgeries dilation and curettage with hysteroscop y (SURG) 2023 024 [facility], [address], [place], [address], 4 15:05:27 Imaging US, pelvis 2023 [address], [address], [place], [address], 4 15:22:56 US, transvagina l 2023 [address], [address], [place], [address], 4 15:22:56 MAMMO, screening, bilateral [address] [facility], [address], [place], [address], 4 10:56:46 US, pelvis, complete [facility]23 [facility] [address], [address], [place], [address], 4 13:24:25 Medication Orders None recorded. Patient [...] or kits canno t be used [facility] . Femal e Estra diol Range s: Folli cular phasE 12.4- 233 pg/mL Ovula tion phasE 41.0- 398 pg/mL Lutea l phasE 22.3- 341 pg/mL Postm enopa usal <5-13 8 pg/mL Healt hy Pregn ant Women 1st Trime ster 154-3 243 pg/mL 2nd Trime ster 1561- 01460 pg/mL 3rd Trime ster 8525- >3000 0 pg/mL Not Available [facility] (Lab) [address] [place], [address], 10/10/2023 11:58:04 10/09/19 24 10/09/2023 FSH, LH, ESTRA DIOL FSH 15.0 mIU/m L This assay was perfo rmed using [employer] n reage nts and test kits. Value s obtai kieran with other assay metho ds or kits canno t be used inter [facility] . Femal es Folli cular : 3.5-1 2.5 mIU/m L Ovula tion: 4.7-2 1.5 mIU/m L Lutea l: 1.7-7 .7 mIU/m L Postm enopa use: 25.8- 134.8 mIU/m L Not Available [facility] (Lab) [address] [place], [address], 10/10/2023 11:58:04 10/09/19 24 10/09/2023 FSH, LH, ESTRA DIOL LH 8.7 mIU/m L This assay was perfo rmed using [employer] reage nts and test kits. Value s obtai kieran with other assay metho ds or kits canno t be used inter [facility] . 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 Not Available [facility] (Lab) [address] [facility], [place], [address], 10/14/2023 12:11:41 10/09/19 24 10/09/2023 TRICH OMONA S VAGIN BROOKE (RRNA ) trichomonas vaginalis ribosomal RNA (rrna) Negati ve negati ve Not Available [facility] (Lab) [address] [facility], [place], [address], 10/14/2023 12:11:42 10/09/19 24 10/09/2023 CT/GC (GUEVARA) , THINP REP VIAL chlamydia trachomatis, PCR Negati ve negati ve Not Available [facility] (Lab) [address] [facility], [place], [address], 10/14/2023 12:11:43 10/09/19 24 10/09/2023 CT/GC (GUEVARA) , THINP REP VIAL neisseria gonorrhoeae, PCR Negati ve negati ve Not Available [facility] (Lab) [address] [facility], [place], [address], 10/14/2023 12:11:43 12/02/19 24 12/02/2023 TESTO STERO NE, TOTAL testosterone , total 84 NG/dL 0-100 Not Available [facility] (Lab) [address] [facility], [place], [address], 12/07/2023 13:06:30 12/02/19 24 12/02/2023 CMP(C OMPRE HENSI VE METAB OLIC PANEL ) sodium 139 mmol/ L 133-14 6 Not Available [facility] (Lab) [address] [facility], [place], [address], 12/07/2023 13:06:30 12/02/19 24 12/02/2023 CMP(C OMPRE HENSI VE METAB OLIC PANEL ) potassium 4.2 mmol/ L 3.5-5. 1 Not Available [facility] (Lab) [address] [place], [address], 12/07/2023 13:06:30 12/02/19 24 12/02/2023 CMP(C OMPRE HENSI VE METAB OLIC PANEL ) chloride 103 mmol/ L 98-107 Not Available [facility] (Lab) [address] [facility], [place], [address], 12/07/2023 13:06:30 12/02/19 24 12/02/2023 CMP(C OMPRE HENSI VE METAB OLIC PANEL ) carbon dioxide 26 mmol/ L 21-31 Not Available [facility] (Lab) [address] [facility], [place], [address], 12/07/2023 13:06:30 12/02/19 24 12/02/2023 CMP(C OMPRE HENSI VE METAB OLIC PANEL ) anion gap 10 mmol/ L 4-13 Not Available [facility] (Lab) [address] [facility], [place], [address], 12/07/2023 13:06:30 12/02/19 24 12/02/2023 CMP(C OMPRE HENSI VE METAB OLIC PANEL ) blood urea nitrogen 10 mg/dL 7-25 Not Available [facility] (Lab) [address] [facility], [place], [address], 12/07/2023 13:06:30 12/02/19 24 12/02/2023 CMP(C OMPRE HENSI VE METAB OLIC PANEL ) creatinine 0.86 mg/dL 0.60-1 .30 Not Available [facility] (Lab) [address] [facility], [place], [address], 12/07/2023 13:06:30 12/02/19 24 12/02/2023 CMP(C OMPRE HENSI VE METAB OLIC PANEL ) egfrcr (CKD-epi 2020) 81 mL/mi n/1.7 3_m2 >=60 Not Available [facility] (Lab) [address] [facility], [place], [address], 12/07/2023 13:06:30 12/02/19 24 12/02/2023 CMP(C OMPRE HENSI VE METAB OLIC PANEL ) calcium 9.4 mg/dL 8.3-10 .5 Not Available [facility] (Lab) [address] [facility], [place], [address], 12/07/2023 13:06:30 12/02/19 24 12/02/2023 CMP(C OMPRE HENSI VE METAB OLIC PANEL ) glucose 99 mg/dL 70-100 Not Available [facility] (Lab) [address] [facility], [place], [address], 12/07/2023 13:06:30 12/02/19 24 12/02/2023 CMP(C OMPRE HENSI VE METAB OLIC PANEL ) protein, total 7.0 g/dL 6.4-8. 3 Not Available [facility] (Lab) [address] [facility], [place], [address], 12/07/2023 13:06:30 12/02/19 24 12/02/2023 CMP(C OMPRE HENSI VE METAB OLIC PANEL ) albumin 4.5 g/dL 3.5-5. 0 Not Available [facility] (Lab) [address] [facility], [place], [address], 12/07/2023 13:06:30 12/02/19 24 12/02/2023 CMP(C OMPRE HENSI VE METAB OLIC PANEL ) ALT 12 units /L 9-43 Not Available [facility] (Lab) [address] [facility], [place], [address], 12/07/2023 13:06:30 12/02/19 24 12/02/2023 CMP(C OMPRE HENSI VE METAB OLIC PANEL ) alkaline phosphatase 73 units /L 34-104 Not Available [facility] (Lab) [address] [facility], [place], [address], 12/07/2023 13:06:30 12/02/19 24 12/02/2023 CMP(C OMPRE HENSI VE METAB OLIC PANEL ) AST 15 units /L 13-39 Not Available [facility] (Lab) [address] [facility], [place], [address], 12/07/2023 13:06:30 12/02/19 24 12/02/2023 CMP(C OMPRE HENSI VE METAB OLIC PANEL ) bilirubin, total 0.9 mg/dL 0.2-1. 2 Not Available [facility] (Lab) [address] [facility], [place], [address], 12/07/2023 13:06:30 12/02/19 24 12/02/2023 TESTO STERO [...] cteri stics have been deter mined by [employer] Anastacio Vergara [place], [place]. It has not been clear ed or appro tiarra by the U.S. Food and Drug Admin istra tion. This assay has been valid ated pursu ant to the CLIA regul ation s and is used for clini estella purpo ses. Perfo rming Organ izati on Infor matio n: Site ID: AMD Name: [employer] Anastacio [place] [facility] malathi Addre ss: [id number] [place], [place] Direc tor: Tito Belcher MD PhD Not Available [facility] (Lab) [address] , [place], [address], 12/07/2023 13:06:31 10/13/19 24 10/13/2023 US, pelvi s No observ ation record ed. [email or web address], [place], [address], 10/13/2023 13:09:06 10/13/19 24 10/13/2023 US, trans vagin al No observ ation record ed. [email or web address], [place], [address], 10/13/2023 13:08:56 10/13/19 24 10/13/2023 US, cindy s No observ ation record ed. [address], [place], [address], 10/22/2023 11:29:49 Result Notes None recorded. Procedures Surgical History Date Name Laterality Status Provider Name and Address Organization Details Recorded Time 11/24/19 24 DILATION AND CURETTAGE WITH HYSTEROSCOPY (SURG) completed Madi Lester [facility] 11/24/2023 16:16:49 10/09/19 24 Date of Last Pap Smear completed [facility] 12/02/2023 10:05:10 05/12/19 23 Date of Last Colonoscopy completed [facility] 10/09/2023 11:57:28 05/12/19 11 Tonsillectomy completed [facility] 10/09/2023 12:06:33 05/12/19 10 thyroidectomy completed [facility] 10/09/2023 12:06:47 Tubal Ligation completed [facility] 10/09/2023 12:06:25 Imaging Results None recorded. [...] Not available Not available Not available 10/09/2023 [id number] SNOMED [facility] 11:51:23 Medications Name Sig Start [...] Updated DateTime 10/09/2023 162.56 cm 32.3 kg/m2 19247.37 g 124/78 mm[Hg] Cynthia Landeros [facility] 10/09/2023 11:51:13 Date Recorded Body height Body mass index (BMI) Body weight Systolic And Diastolic Provider Name and Address Organization Details Last Updated DateTime 10/23/2023 162.56 cm 32.9 kg/m2 70125.02 g 101/67 mm[Hg] Renée Garzon [facility] 10/23/2023 09:35:21 Date Recorded Body height Body mass index (BMI) Body weight Systolic And Diastolic Provider Name and Address Organization Details Last Updated DateTime 12/02/2023 162.56 cm 31.8 kg/m2 10055.59 g 106/73 mm[Hg] Cynthia Landeros [facility] 12/02/2023 10:03:58 Social History Question Answer Notes LastModified by Organizat ion Details LastModified Time Tobacco Smoking Status Current Every Day Smoker Cynthia Landeros [facility] 10/09/2023 12:02:44 Are You Blind Or [...] Or The Highest Degree You Have Received? SN48289-2 Information not available 10/09/2023 Are There Any [...] anxious, or unable to sleep at night)? [id number] Information not available 10/09/2023 Family History Relationship [...] N Drug/Latex Allergies/Reactions N Blood Transfusion N Lung Disease N Dermatologic Disorders N Defects or Inherited Disease N Breast Problem N Gestational Diabetes N Hematologic disorders N Anesthesia Complications N History of STI Y Deep Vein Thrombosis N Polycystic ovary syndrome N Anxiety Disorder Y Autoimmune disease N Arthritis N Polyps N Infertility N History of abnormal pap N Acid Reflux (GERD) Y Cancer N Varicosities N Stroke N Neurologic/Epilepsy [...] ICD10 Code Diagnosis IMO Codes Diagnosis Note [id number] [facility] [address] [address] 10/09/2023 11:22:36 10/09/2023 12:35:07 Postmenopausal bleeding [id number] N95.0 Today we agreed to update a [...] of plan of care. 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 [id number] Alhaji Eldridge MD [facility] [address],[place] [address] 10/13/2023 11:39:42 10/13/2023 12:49:01 Postmenopausal bleeding 48922779 N95.0 [id number] SHAE CASH MD [facility] [address],[place] [address] 10/23/2023 09:17:40 10/29/2023 06:52:18 Postmenopausal bleeding 10154509 N95.0 - on HRT (estrogen and testostero ne) for years, no progestero ne therapy until August- two episodes of PMB- pelvic US demonstrat es heterogeno us and threatened endometriu m, 7mm- recommend full endometria l sampling with hysterosco py and D&C; r/b/a discussed with patient- continue progestero ne therapy until D&C [id number] SHAE CASH MD [facility] [address],[place] [address] 12/02/2023 09:52:04 12/02/2023 10:42:17 Hormone replacement therapy [id number] Z79.890 - on IM testostero ne and estrogen, PO progestero ne- reports facial hair growth, voice deepening- will check testostero ne and CMP today; patient not fasting for lipid panel- follow up on results as available Postoperative visit 8527 98885 Z48.89 - s/p hysterosco py D&C 7/15- [...] Barth Member ID Guarantor Name 11/30/2023 1 [facility] [id number] Enrique Ferrell [id number] Hope Ramon Ghassan Notes Date Note Type [...] new regimen). CAITLIN Cardoza- [address], [place], [address], [facility] 10/09/2023 12:34:33 4 text/html Presents for [...] cancer. SHAE CASH MD [address], [place], [address], [facility] 10/28/2023 22:58:21 4 text/html S/p hysteroscopy D&C 11/23. Patient doing well, no complaints. Pain resolved. Tolerating general diet. Denies nausea or vomiting. No shortness of breath or chest pain. Ambulating. Bleeding resolved. Patient on HRT with IM estrogen and testosterone. Patient reports increased facial hair and voice deepening. SHAE CASH MD [address], [place], [address], [place] [facility] 12/02/2023 10:36:37 OBGyn Episode Ob Episode Information Episode Created Date Number of Fetuses Patient Bloodtype Patient rh Status Prepregnancy Weight lbs Domestic Partner Domestic Partner Phone Father Name Operations Asst Status 10/09/19 24 1 CLOSED Fetus Data First Name Last Name Admitted to NICU Weight (g) Sex Living Outcome Pediatric Complications Fetus ID Race Codes Race Delivery Type M Full Term [id number] Vaginal Delivery [place] Calculation Initial [place] Date Initial Exam Date [...] Domestic Partner Domestic Partner Phone Father Name Operations Asst Status 10/09/19 24 1 CLOSED Fetus Data First Name Last Name Admitted to NICU Weight (g) Sex Living Outcome Pediatric Complications Fetus ID Race Codes Race Delivery Type , Spontane ous 42056 [place] Calculation Initial [place] Date Initial Exam [...] Domestic Partner Domestic Partner Phone Father Name Operations Asst Status 10/09/19 24 1 CLOSED Fetus Data First Name Last Name Admitted to NICU Weight (g) Sex Living Outcome Pediatric Complications Fetus ID Race Codes Race Delivery Type F Full Term 99153 Vaginal Delivery [place] Calculation Initial [place] Date [...] Domestic Partner Domestic Partner Phone Father Name Operations Asst Status 10/09/19 24 1 CLOSED Fetus Data First Name Last Name Admitted to NICU Weight (g) Sex Living Outcome Pediatric Complications Fetus ID Race Codes Race Delivery Type , Induced 08968 [place] Calculation Initial [place] Date Initial Exam [...] Domestic Partner Domestic Partner Phone Father Name Operations Asst Status 10/09/19 24 1 CLOSED Fetus Data First Name Last Name Admitted to NICU Weight (g) Sex Living Outcome Pediatric Complications Fetus ID Race Codes Race Delivery Type , Spontane ous 49941 [place] Calculation Initial [place] Date Initial Exam [...] Domestic Partner Domestic Partner Phone Father Name Operations Asst Status 10/09/19 24 1 CLOSED Fetus Data First Name Last Name Admitted to NICU Weight (g) Sex Living Outcome Pediatric Complications Fetus ID Race Codes Race Delivery Type , Induced 71488 [place] Calculation Initial [place] Date Initial Exam [...] Domestic Partner Domestic Partner Phone Father Name Operations Asst Status 10/09/19 24 1 CLOSED Fetus Data First Name Last Name Admitted to NICU Weight (g) Sex Living Outcome Pediatric Complications Fetus ID Race Codes Race Delivery Type F Full Term [id number] Vaginal Delivery [place] Calculation Initial [place] Date [...]
--- OUTSIDE RECORDS SUMMARY | 2025-03-10 15:45 | XMS_ITS | Data Portability ---
Author Organization [facility] REBECC[facility] Crenshaw Address [address] [facility] [place] [address] Assessment Encounter Date Assessment Date Assessment LastModified by Organization Details LastModified Time 02/12/2023 02/12/2023 Advised patient to avoid using cocaine. [email or web address] Not available 02/12/2023 15:20:42 Plan of Treatment Reminders Order Date Submit Date Provider Last Modified By Organization Details Last Modified Time Details Appointments None recorded. Lab TSH, ultra-sensi tive, serum 2022 023 [facility], [address] [place] [address], [address], [place], [address], 3 06:17:35 HbA1c (hemoglobin A1c), blood 2022 023 [facility], [address] [place] [address], [address], [place], [address], 3 06:17:36 HbA1c (hemoglobin A1c), blood 2022 023 [facility], [address] [place] [address], [address], [place], [address], 3 11:16:09 TSH, ultra-sensi tive, serum 2022 023 [facility], [address] [place] [address], [address], [place], [address], 3 11:16:08 bacterial vaginosis + vaginitis panel, vaginal 2022 023 [facility], [address] [facility], [address], [place], [address], 3 11:16:07 Referral None recorded. Procedures None recorded. Surgeries None recorded. Imaging None recorded. Medication Orders Ozempic 0.25 mg or 0.5 mg (2 mg/3 mL) subcutaneou s pen injector 2023 024 [facility], [address] [place], [address], 4 12:04:50 trazodone 50 mg tablet 2023 024 [facility], [address] [place], [address], 4 12:04:52 omeprazole 20 mg capsule,del ayed release 2023 024 [facility], [address] [place], [address], 4 12:04:52 rosuvastati n 20 mg tablet 2023 024 [facility], [address] [place], [address], 4 12:04:50 albuterol sulfate HFA 90 mcg/actuati on aerosol inhaler 2023 024 [facility], [address] [place], [address], 4 12:04:51 Ozempic 0.25 mg or 0.5 mg (2 mg/1.5 mL) subcutaneou s pen injector 2022 023 [facility], [address] [place], [address], 3 15:21:07 metronidazo le 500 mg tablet 2022 023 [facility], [address] [place], [address], 3 13:04:34 Crestor 20 mg tablet 2022 023 [facility], [address] [place], [address], 3 13:04:31 amoxicillin 875 mg tablet 2022 023 [facility], [address] [place], [address], 15:04:45 Patient TargetsNo targets recorded. Patient Instructions Encounter Date Encounter Id Patient Instructions Last Modified By Organization Details Last Modified Time 02/12/2023 [id number] A healthy lifestyle: care [facility] available 02/12/2023 15:27:05 Reason for Referral None Reported. Results Created Date Observation Date Name Description Value Unit Range Abnormal Flag Note LastModifiedBy Organization Detail LastModifiedTime 01/01/2012/31/2022 LIPID PANEL cholesterol, total 264 mg/dL 100-19 9 above high normal Not Available [facility] [address] [place], [address], 01/01/2023 06:17:29 01/01/2012/31/2022 LIPID PANEL triglyceride s 90 mg/dL 0-149 Not Available [facility] [address] [place], [address], 01/01/2023 06:17:29 01/01/2012/31/2022 LIPID PANEL HDL cholesterol 59 mg/dL 40-999 Not Available [facility] [address] [place], [address], 01/01/2023 06:17:29 01/01/20 23 12/31/2022 LIPID PANEL VLDL cholesterol estella 18 mg/dL 5-40 Not Available [facility] [address] [place], [address], 01/01/2023 06:17:29 01/01/20 23 12/31/2022 LIPID PANEL LDL chol calc (nih) 201 mg/dL 0-99 above high normal Not Available [facility] [address] [place], [address], 01/01/2023 06:17:29 01/01/20 23 12/31/2022 COMP. METAB OLIC PANEL (14) glucose 125 mg/dL 70-99 above high normal Not Available [facility] [address] [place] [address], [address], 01/01/2023 06:17:30 01/01/20 23 12/31/2022 COMP. METAB OLIC PANEL (14) BUN 13 mg/dL 6-24 Not Available [facility] [address] [place] [address], [address], 01/01/2023 06:17:30 01/01/20 23 12/31/2022 COMP. METAB OLIC PANEL (14) creatinine 0.71 mg/dL 0.76-1 .27 below low normal Not Available [facility] [address] [place], [address], 01/01/2023 06:17:30 01/01/20 23 12/31/2022 COMP. METAB OLIC PANEL (14) eGFR 102 >=60 Units for eGFR value s are mL/mi n/1.7 3 The eGFR Calcu latio n has not been valid ated for patie nts under the age of 18. If test resul ts are displ ayed for a patie nt under the age of 18, disre jackie that value . Not Available [facility] [address] [place], [address], 01/01/2023 06:17:30 01/01/20 23 12/31/2022 COMP. METAB OLIC PANEL (14) BUN/creatini ne ratio 28 01- Not Available [facility] [address] [place], [address], 01/01/2023 06:17:30 01/01/20 23 12/31/2022 COMP. METAB OLIC PANEL (14) sodium 140 mmol/ L 134-14 4 Not Available [facility] [address] [place], [address], 01/01/2023 06:17:30 01/01/20 23 12/31/2022 COMP. METAB OLIC PANEL (14) potassium 4.3 mmol/ L 3.5-5. 2 Not Available [facility] [address] [place], [address], 01/01/2023 06:17:30 01/01/20 23 12/31/2022 COMP. METAB OLIC PANEL (14) chloride 103 mmol/ L 96-106 Not Available [facility] [address] [place], [address], 01/01/2023 06:17:30 01/01/20 23 12/31/2022 COMP. METAB OLIC PANEL (14) carbon dioxide, total 21 mmol/ L 20-29 Not Available [facility] [address] [place], [address], 01/01/2023 06:17:30 01/01/20 23 12/31/2022 COMP. METAB OLIC PANEL (14) calcium 9.4 mg/dL 8.7-10 .2 Not Available [facility] [address] [place], [address], 01/01/2023 06:17:30 01/01/20 23 12/31/2022 COMP. METAB OLIC PANEL (14) protein, total 7.5 g/dL 6.0-8. 5 Not Available [facility] [address] [place], [address], 01/01/2023 06:17:30 01/01/20 23 12/31/2022 COMP. METAB OLIC PANEL (14) albumin 4.6 g/dL 3.8-4. 9 Not Available [facility] [address] [place], [address], 01/01/2023 06:17:30 01/01/20 23 12/31/2022 COMP. METAB OLIC PANEL (14) globulin, total 2.9 g/dL 1.5-4. 5 Not Available [facility] [address] [place], [address], 01/01/2023 06:17:30 01/01/20 23 12/31/2022 COMP. METAB OLIC PANEL (14) A/G ratio 2.0 1.2-2. 2 Not Available [facility] [address] [place] [address], [address], 01/01/2023 06:17:30 01/01/20 23 12/31/2022 COMP. METAB OLIC PANEL (14) bilirubin, total 0.4 mg/dL 0.0-1. 2 Not Available [facility] [address] [place] [address], [address], 01/01/2023 06:17:30 01/01/20 23 12/31/2022 COMP. METAB OLIC PANEL (14) alkaline phosphatase 89 IU/L 44-121 Not Available [facility] Department [address] [place] [address], [address], 01/01/2023 06:17:30 01/01/20 23 12/31/2022 COMP. METAB OLIC PANEL (14) AST (SGOT) 18 IU/L 0-40 Not Available [facility] Department [address] [place] [address], [address], 01/01/2023 06:17:30 01/01/20 23 12/31/2022 COMP. METAB OLIC PANEL (14) ALT (SGPT) 20 IU/L 0-32 Not Available [facility] Department [address] [place], [address], 01/01/2023 06:17:30 01/01/2012/31/2022 CBC, PLATE LET, NO DIFFE RENTI AL WBC 8.5 x10e3 /uL 3.4-10 .8 Not Available [facility] [address] [place], [address], 01/01/2023 06:17:31 01/01/2012/31/2022 CBC, PLATE LET, NO DIFFE RENTI AL RBC 4.35 x10e6 /uL 3.77-5 .28 Not Available [facility] [address] [place], [address], 01/01/2023 06:17:31 01/01/2012/31/2022 CBC, PLATE LET, NO DIFFE RENTI AL hemoglobin 13.0 g/dL 11.1-1 5.9 Not Available [facility] [address] [place], [address], 01/01/2023 06:17:31 01/01/2012/31/2022 CBC, PLATE LET, NO DIFFE RENTI AL hematocrit 41.3 % 34.0-4 6.6 Not Available [facility] [address] [place], [address], 01/01/2023 06:17:31 01/01/2012/31/2022 CBC, PLATE LET, NO DIFFE RENTI AL MCV 95 fL 79-97 Not Available [facility] [address] [place], [address], 01/01/2023 06:17:31 01/01/2012/31/2022 CBC, PLATE LET, NO DIFFE RENTI AL MCH 29.9 pg 26.6-3 3.0 Not Available [facility] [address] [place], [address], 01/01/2023 06:17:31 01/01/2012/31/2022 CBC, PLATE LET, NO DIFFE RENTI AL MCHC 31.5 g/dL 31.5-3 5.7 Not Available [facility] [address] [place], [address], 01/01/2023 06:17:31 01/01/2012/31/2022 CBC, PLATE LET, NO DIFFE RENTI AL RDW 13.0 % 11.5-1 4.5 Not Available [facility] [address] [place], [address], 01/01/2023 06:17:31 01/01/2012/31/2022 CBC, PLATE LET, NO DIFFE RENTI AL platelets 441 x10e3 /uL 150-45 0 Not Available [facility] [address] [place], [address], 01/01/2023 06:17:31 01/01/2012/31/2022 CBC, PLATE LET, NO DIFFE RENTI AL NRBC 0 % 0-0 Not Available [facility] [address] [place], [address], 01/01/2023 06:17:31 01/01/2001/01/2023 TSH RFX ON ABNOR MAL TO FREE T4 TSH 4.670 uIU/m L 0.450- 4.500 above high normal Not Available [facility] ([facility]) [address] [facility], [place], [address], 01/01/2023 08:33:38 01/01/2001/01/2023 T4F T4,free (direct) 1.30 NG/dL 0.82-1 .77 Not Available [facility] ([facility]) [address] [facility], [place], [address], 01/01/2023 08:33:39 01/21/2001/23/2023 NUSWA B BV KEN+C AND6+ CT/GC /T... atopobium vaginae Low - 0 score Not Available [facility] ([facility]) [address] [facility], [place], [address], 01/24/2023 11:16:07 01/21/20 23 01/23/2023 NUSWA B BV KEN+C AND6+ CT/GC /T... bvab 2 Low - 0 score Not Available [facility] ([facility]) [address] [facility], [place], [address], 01/24/2023 11:16:07 01/21/20 23 01/23/2023 NUA B [...] Drug Admin istra tion. Not Available [facility] ([facility]) [address] [facility], [place], [address], 01/24/2023 11:16:07 01/21/20 23 01/23/2023 NUSWA B BV KEN+C AND6+ CT/GC /T... christopher albicans, KEN Negati ve negati ve Not Available [facility] ([facility]) [address] [facility], [place], [address], 01/24/2023 11:16:07 01/21/20 23 01/23/2023 NUSWA B BV KEN+C AND6+ CT/GC /T... christopher glabrata, KEN Negati ve negati ve Not Available [facility] ([facility]) [address] [facility], [place], [address], 01/24/2023 11:16:07 01/21/20 23 01/23/2023 NUSWA B BV KEN+C AND6+ CT/GC /T... trich vag by KEN Negati ve negati ve Not Available [facility] ([facility]) [address] [facility], [place], [address], 01/24/2023 11:16:07 01/21/20 23 01/23/2023 NUSWA B BV KEN+C AND6+ CT/GC /T... chlamydia trachomatis, KEN Negati ve negati ve Not Available [facility] ([facility]) [address] [place], [address], 01/24/2023 11:16:07 01/21/20 23 01/23/2023 NUSWA B BV KEN+C AND6+ CT/GC /T... neisseria gonorrhoeae, KEN Negati ve negati ve Not Available [facility] ([facility]) [address] [place], [address], 01/24/2023 11:16:07 01/21/20 23 01/23/2023 NUSWA B BV KEN+C AND6+ CT/GC /T... hsv 1 KEN Negati ve negati ve Not Available [facility] ([facility]) [address] [place], [address], 01/24/2023 11:16:07 01/21/20 23 01/23/2023 NUSWA B BV KEN+C AND6+ CT/GC /T... hsv 2 KEN Negati ve negati ve Not Available [facility] ([facility]) [address] [place], [address], 01/24/2023 11:16:07 01/21/20 23 01/24/2023 NUSWA B BV KEN+C AND6+ CT/GC /T... C parapsilosis /tropicalis Negati ve negati ve This assay does not diffe renti ate C. tropi calis and C. parap rosaline is. Not Available [facility] ([facility]) [address] [facility], [place], [address], 01/24/2023 11:16:07 01/21/20 23 01/24/2023 NUSWA B BV KEN+C AND6+ CT/GC /T... christopher lusitaniae, KEN Negati ve negati ve Not Available [facility] ([facility]) [address] [facility], [place], [address], 01/24/2023 11:16:07 01/21/20 23 01/24/2023 NUSWA B BV KEN+C AND6+ CT/GC /T... christopher krusei, KEN Negati ve negati ve Not Available [facility] ([facility]) [address] [facility], [place], [address], 01/24/2023 11:16:07 01/21/20 23 01/21/2023 TSH RFX ON ABNOR MAL TO FREE T4 TSH - uIU/m L Test not perfo rmed. No speci men recei tiarra. Not Available [facility] ([facility]) [address] [facility], [place], [address], 01/24/2023 11:16:08 01/21/20 23 01/21/2023 HEMOG LOBIN A1C hemoglobin A1C - % Test not perfo rmed. No speci men recei tiarra. Predi abete s: 5.7 - 6.4 Diabe geo: >6.4 Glyce taylor contr ol for adult s with diabe geo: <7.0 Not Available [facility] ([facility]) [address] [place], [address], 01/24/2023 11:16:09 01/21/20 23 01/21/2023 SPECI MEN STATU S REPOR T specimen status report TNP Test not perfo rmed. No speci men recei tiarra. TEST: [id number] Hemog lobin A1c 71245 9 TSH Rfx on Abnor mal to Free T4 Not Available [facility] ([facility]) [address] [facility], [place], [address], 01/24/2023 11:16:07 02/04/20 23 02/04/2023 TSH RFX ON ABNOR MAL TO FREE T4 TSH 4.440 uIU/m L 0.450- 4.500 Not Available [facility] ([facility]) [address] [facility], [place], [address], 02/04/2023 06:17:35 02/04/20 23 02/04/2023 HEMOG LOBIN A1C hemoglobin A1C 5.9 % 4.8-5. 6 above high normal Predi abete s: 5.7 - 6.4 Diabe geo: >6.4 Glyce taylor contr ol for adult s with diabe geo: <7.0 Not Available [facility] ([facility]) [address] [facility], [place], [address], 02/04/2023 06:17:36 05/15/19 24 05/19/2023 Skin Patho logy biops y repor t pathology report.secti on heading Dermat opatho logy Report Case: [id number] Author izing Provid er: Jim Westbrook MD [facility] rasheed: 2023 12:00 AM Orderi ng Locati on: [facility] Receiv ed: 2023 12:53 PM Pathol ogist: Angie Masters MD Specim en: Skin, left upper chest Case Repor t [facility] holog y Repor t Case: [id number] Autho rizin g Provi nikhil: Jim Serrano MD Colle cted: 05/15 12:00 AM Order ing Locat ion: [facility] Recei tiarra: 05/16 12:53 PM Patho logis t: Suzette Masters in [place] gerard MD Speci men: Skin, left upper chest 05/19 2:48 PM [facility] Not [...] c descr iptio n) 05/19 2:48 PM [facility] Elect alisha chicas rajeev d by Suzette Masters in [place] gerard MD on 024 at 2:48 PM Not Available Not Available 07/09/2024 03:33:17 05/15/19 24 05/19/2023 Skin Patho logy biops y repor t pathology report relevant history narrative AK vs [facility]. Path#2 [id number] Clini estella Histo ry AK vs BCCA. Path# [id number] 05/19 2:48 PM [facility] Not [...] 4x2x1 mm. Jar 0. 05/19 2:48 PM [facility] Not [...] kieran and revie wed. 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 Neeraj Case . These tests need not be, and theref ore are not, approv ed by the [facility] Food and Drug Admini strati on. The tests are used for clinic al purpos es. Juniorin g Codes Specim [place] [address] 1 Discl aimer An exter nal and [...] edda cteri stic deter mined by the [facility] at [facility] rasheed by Dr. Neeraj Jacobs. These tests need not be, and there fore are not, appro tiarra by the [facility] Food and Drug Admin istra tion. The tests are used for clini estella purpo ses. Brijesh ng Codes Speci [place] [id number] 1 05/19 2:48 PM [facility] Not Available Not Available 07/09/2024 03:33:17 05/15/19 24 05/19/2023 Skin Patho logy biops y repor t embedded images Embed ded Image s 05/19 2:48 PM [facility] Not Available Not Available 07/09/2024 03:33:17 02/01/20 23 01/27/2023 XR, hip, unila teral No observ ation record ed. [facility] [address], [place], [address], 02/03/2023 14:15:15 Result Notes None recorded. Problems Name Problem SNOMED Code Status Onset Date Resolution Date Notes Provider Name and Address Organization Details Recorded Time Low back pain 054781219 Active Edsaurabh Fuller PA-C Attn: Pancho ponce,[address] [facility], [place], [address], [place] [facility] 6 14:02:41 Plantar fasciitis 329616291 Active Carlos Fuller PA-C Attn: Accountin g,[address] [facility], [place], [address], [place] [facility] 5 18:51:17 Herpes simplex 11618002 Active Carlos Fuller PA-C Attn: Accountin g,[address] [facility], [place], [address], [place] [facility] 5 12:49:48 Multiple actinic keratoses 015155598 Active Carlos Fuller PA-C Attn: Accountin g,[address] [facility], [place], [address], [place] [facility] 5 11:54:23 Fracture of ankle 66816189 Active Carlos Fuller PA-C Attn: Accountin g,[address] [facility], [place], [address], [place] [facility] 5 12:49:48 Hypothyroid ism 09929277 Active Carlos Fuller PA-C Attn: Accountin g,[address] [facility], [place], [address], [place] [facility] 6 10:44:46 Acute urinary tract infection 588982354 Active Carlos Fuller PA-C Attn: Accountin g,[address] [facility], [place], [address], [place] [facility] 6 17:18:27 Vitamin B12 level below reference range 414141892 Active Carlos Fuller PA-C Attn: Accountin g,[address] [facility], [place], [address], [place] [facility] 6 12:43:51 Vitamin D deficiency 63727298 Active Carlos Fuller PA-C Attn: Accountin g,[address] [facility], [place], [address], [place] [facility] 6 12:51:01 Anemia 596708575 Active Carlos Fuller PA-C Attn: Accountin g,[address] [facility], [place], [address], [place] [facility] 6 12:51:01 Vaginitis and vulvovagini tis Active Carlos Fuller PA-C Attn: Accountin g,[address] [facility], [place], [address], [place] [facility] 6 17:18:27 Upper respiratory infection 97666091 Active Carlos Fuller PA-C Attn: Accountin g,[address] [facility], [place], [address], [place] [facility] 6 12:00:46 Bronchitis 77940225 Active Carlos Fuller PA-C Attn: Accountin g,[address] [facility], [place], [address], [place] [facility] 6 14:31:51 Vertigo 854045132 Active Carlos Fuller PA-C Attn: Accountin g,[address] [facility], [place], [address], [place] [facility] 6 18:12:53 Allergic rhinitis 41029733 Active 2016 Carlos Fuller PA-C Attn: Accountin g,[address] [place], [address], [place] [facility] 7 17:10:30 Screening for disorder Active 2016 Carlos Fuller PA-C Attn: Accountin g,[address] [facility], [place], [address], [place] [facility] 7 17:13:58 Depressive disorder 29090557 Active 2016 Carlos Fuller PA-C Attn: Accountin g,[address] [facility], [place], [address], [place] [facility] 7 16:59:29 Sinusitis 81646023 Active 2016 Carlos Fuller PA-C Attn: Accountin g,[address] [place], [address], [place] [facility] 7 16:10:10 Acute bronchitis 19574600 Active 2017 Carlos Fuller PA-C Attn: Pancho g,[address] [facility], [place], [address], [place] [facility] 8 18:08:56 Attention deficit hyperactivi ty disorder, predominant ly inattentive type 46821544 Active 2017 Carlos Fuller PA-C Attn: Accountlawrence g,[address] [facility], [place], [address], [place] [facility] 8 18:24:48 Pain of left hip joint 9258184324599 00 Active 2017 Carlos Fuller PA-C Attn: Accountlawrence g,[address] [facility], [place], [address], [place] [facility] 8 17:17:31 Fibromyalgi a 727277765 Active 2017 Carlos Fuller PA-C Attn: Accountlawrence g,[address] [facility], [place], [address], [place] [facility] 8 17:38:52 Allergic reaction to insect bite Active 2017 Carlos Fuller PA-C Attn: Accountlawrence g,[address] [facility], [place], [address], [place] [facility] 8 17:43:26 Obese 735782061 Active 2017 Carlos Fuller PA-C Attn: Accountlawrence g,[address] [facility], [place], [address], [place] [facility] 8 22:44:50 Gastroesoph ageal reflux disease 681564692 Active 2017 Carlos Fuller PA-C Attn: Accountlawrence g,[address] [facility], [place], [address], [place] [facility] 8 18:31:17 Dysuria 01155078 Active 2018 Carlos Fuller PA-C Attn: Accountin g,[address] [facility], [place], [address], [place] [facility] 9 17:38:38 Insomnia 778234990 Active 2018 Carlos Fuller PA-C Attn: Accountin g,[address] [facility], [place], [address], [place] [facility] 9 17:23:14 Constipatio n 67720097 Active 2018 Carlos Fuller PA-C Attn: Accountin g,[address] [facility], [place], [address], [place] [facility] 9 12:56:04 Chronic idiopathic constipatio n 25879182 Active 2018 Carlos Fuller PA-C Attn: Accountin g,[address] [facility], [place], [address], [place] [facility] 9 12:57:56 Urinary incontinenc e 626259243 Active 2018 Carlos Fuller PA-C Attn: Accountin g,[address] [facility], [place], [address], [place] [facility] 9 13:00:27 Acute sinusitis 49426548 Active 2018 Carlos Fuller PA-C Attn: Accountin g,[address] [facility], [place], [address], [place] [facility] 9 10:37:28 COVID-19 207442918 Active 2019 Carlos Fuller PA-C Attn: Accountin g,[address] [facility], [place], [address], [place] [facility] 0 12:09:12 Pneumonia caused by SARS-CoV-2 8165831349843 64612 Active 2019 Carlos Fuller PA-C Attn: Accountin g,[address] [facility], [place], [address], [place] [facility] 0 12:10:01 Hyperlipide fermín 53449622 Active 2020 Carlos Fuller PA-C Attn: Pancho ponec,[address] [facility], [place], [address] [facility] 1 10:51:41 High hemoglobin A1c level 092884405 Active 2020 Carlos Fuller PA-C Attn: Pancho ponce,[address] [facility], [place], [address], [place] [facility] 1 14:10:38 Nausea 269928419 Active 2021 Carlos Fuller PA-C Attn: Pancho ponce,[address] [place], [address] [facility] 2 12:21:19 Prolapsed cervical interverteb ral disc 030545378 Active 2021 Carlos Fuller PA-C Attn: Pancho ponce,[address] [facility], [place], [address] [facility] 2 16:01:02 Problem Notes None recorded. Medical Equipment None Reported. Allergies Allergen ID Allergen Name Allergen Category Reaction Reaction Severity Criticality Documentation Date Start Date Code Code System Note Provider Name and Address Organization Details Recorded Time 42824 Substance with sulfonami de structure and antibacte rial mechanism of action (substanc e) medicatio n edema moderate Not available 05/20/20162016 56530 8003 SNSHARON Masters LPN null, [place] - [...] Not Available Not Available BD Regular Bevel Tokio 18 gauge x 1 active Not Available [...] DateTime 07/22/2023 165.1 cm Orquidea Lira on, [facility] 07/22/2023 11:24:22 Date Recorded Body height Body mass index (BMI) Body weight Oxygen saturation Oxygen saturation in Arterial blood by Pulse oximetry Heart rate Systolic And Diastolic Provider Name and Address Organization Details Last Updated DateTime 3 165.1 cm 30.5 kg/m2 03810.4 g 98 % 98 % 81 /min 122/78 mm[Hg] Therese Jessica MA [facility] 3 12:20:19 Date Recorded Body height Body mass index (BMI) Body weight Oxygen saturation Oxygen saturation in Arterial blood by Pulse oximetry Heart rate Respiratory rate Systolic And Diastolic Provider Name and Address Organization Details Last Updated DateTime 3 165.1 cm 30.1 kg/m2 43105.2 2 g 98 % 98 % 80 /min 18 /min 122/78 mm[Hg] Therese Jessica MA [facility] 3 11:47:44 Date Recorded Body height Body mass index (BMI) Body weight Oxygen saturation Oxygen saturation in Arterial blood by Pulse oximetry Heart rate Systolic And Diastolic Provider Name and Address Organization Details Last Updated DateTime 3 165.1 cm 31.8 kg/m2 47325.1 4 g 99 % 99 % 75 /min 130/80 mm[Hg] Therese Jessica MA [facility] 3 14:26:08 Date Recorded Body height Body mass index (BMI) Body weight Oxygen saturation Oxygen saturation in Arterial blood by Pulse oximetry Heart rate Systolic And Diastolic Provider Name and Address Organization Details Last Updated DateTime 3 165.1 cm 31.3 kg/m2 66099.3 7 g 99 % 99 % 77 /min 128/80 mm[Hg] Therese Jessica [facility] 3 12:05:08 Social History Question Answer Notes LastModified by Organizat ion Details LastModified Time Tobacco Smoking Status Former Smoker Quit in 2001 Caitlin Pugh [place] null, [facility] 02/07/2015 12:24:56 What Was The [...] virus, quadrivalent, preservative 5 completed Not Available [facility] 05/29/2019 02:44:47 Past Encounters Encounter ID Performer Location Encounter Start Date Encounter Closed Date Diagnosis/Indication Diagnosis SNOMED-CT Code Diagnosis ICD10 Code Diagnosis IMO Codes Diagnosis Note [id number] ANIA Tripathi (Adult Med) [address] [place] [address] [id number] 0 02/07/2015 12:05:26 02/07/2015 17:12:59 Herpes simplex 66538954 positive for one year . no outbreaks Multiple a ctinic keratoses 120624707 Fracture of ankle 29703382 June 2014, no pins. Hypothyroidism 81334072 Screening for disorder 053030434 exposed to 2 guys she dated had hepatitis c , neg x 3 . 4 months ago last test Active or passive immunization 070873498 [id number] MD Leon Ramirez (Adult Med) [address] [place] [address] [phone] 03/07/2015 11:33:27 03/07/2015 17:55:17 Hypothyroidism 81597747 E03.9 Active or passive immunization 753996890 Z23 Low back pain 074319127 M54.5 Multiple a ctinic keratoses 828975356 L57.0 [id number] ANIA Tripathi (Adult Med) [address] [place] [address] [id number] 0 05/31/2015 11:23:49 05/31/2015 16:06:21 Hypothyroidism 38562119 E03.9 Low back pain 252424492 M54.5 Vitamin B1 2 level below reference range 015168428 R79.9 Vitamin D deficiency 347 82106 E55.9 Anemia 290788949 D64.9 [id number] ANIA Tripathi (Adult Med) [address] [place] [address] [id number] 0 07/24/2015 12:09:21 07/24/2015 14:58:46 Anemia 567747066 D64.9 Vitamin B1 2 level below reference range 507977237 R79.9 Hypothyroidism 67713112 E03.9 Low back pain 209681842 M54.5 Vitamin D deficiency 347 00762 E55.9 [id number] ANIA Tripathi (Adult Med) [address] [place] [address] [id number] 0 10/16/2015 12:03:45 10/17/2015 10:01:03 Hypothyroidism 51649367 E03.9 Anemia 303571913 D64.9 Low back pain 610148192 M54.5 Vitamin D deficiency 347 83911 E55.9 [id number] MD Leon Ramirez (Adult Med) [address] [place] [address] [phone] 0 03/22/2016 10:08:58 03/22/2016 11:25:13 Low back pain 396435808 M54.5 Vitamin D deficiency 347 16579 E55.9 Hypothyroidism 67150295 E03.9 Anemia 926978865 D64.9 Vitamin B1 2 level below reference range 378953860 R79.9 [id number] MD Leon Ramirez (Adult Med) [address] [place] [address] [id number] 0 11/07/2016 16:24:05 11/08/2016 09:31:39 Hypothyroidism 76993967 E03.9 Vitamin D deficiency 347 53031 E55.9 Vitamin B1 2 level below reference range 697701319 R79.9 Low back pain 654576545 M54.5 Allergic rhinitis 993902 04 J30.9 Screening for disorder 208990415 Z13.9 exposed to 2 guys she dated had hepatitis c , neg x 3 . 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 Hypothyroidism 22669477 E03.9 Vitamin D deficiency 347 44225 E55.9 [id number] Shelly Muñiz MD [facility] (Adult Med) [address] [place] [address] [id number] 0 10/10/2017 16:57:01 10/10/2017 17:26:54 Pain of left hip joint 2603281554 90895 M25.905 [id number] [facility] [address] [place] [address] [phone] 0 01/05/2018 16:43:27 01/06/2018 08:28:00 Fibromyalgia 510424311 M79.7 Allergic r eaction to insect bite 385281397 T78.40XA Depressive disorder 3548 9007 F32.89 Vitamin D deficiency 347 09164 E55.9 Obese 454033224 E66.9 Pain of le ft hip joint 6362567994 69243 M25.552 Plantar fasciitis 865094 [address] mora Low back pain 419379570 M54.5 Hypothyroidism 51872915 E03.9 [id number] MD Leon Ramirez (Adult Med) [address] [place] [address] [id number] 0 02/17/2018 18:03:14 02/19/2018 16:00:35 Fibromyalgia 590350182 M79.7 Gastroesop hageal reflux disease 220400485 K21.9 Anemia 696529098 D64.9 Vitamin D deficiency 347 97748 E55.9 Hypothyroidism 78688453 E03.9 Obese 669907571 E66.9 Depressive disorder 3548 9007 F32.89 Low back pain 566633110 M54.5 [id number] MD Leon Ramirez (Adult Med) [address] [place] [address] [id number] 0 12/15/2018 16:42:56 12/16/2018 09:36:06 Attention deficit hyperactivity disorder, predominantly inattentive type 73764349 F90.0 Depressive disorder 3548 9007 F32.89 Hypothyroidism 52351194 E03.9 Vitamin D deficiency 347 73838 E55.9 Fibromyalgia 162083942 M 79.7 Insomnia 974633915 G47.0 0 Pain of le ft hip joint 9250532453 88792 M25.732 [id number] MD Leon Ramirez (Adult Med) [address] [place] [address] [phone] 0 01/08/2019 12:10:38 01/08/2019 14:41:57 Constipation 73422117 K59.00 Chronic id iopathic constipation 20889413 K59.04 Urinary incontinence 165 562687 R32 Depressive disorder 3548 9007 F32.89 Insomnia 269866406 G47.0 0 Gastroesop hageal reflux disease 325210607 K21.9 Vitamin D deficiency 347 85594 E55.9 Hypothyroidism 02024443 E03.9 Allergic rhinitis 481482 04 J30.9 [id number] MD Leon Ramirez (Adult Med) [address] [place] [address] [id number] 0 01/19/2019 11:04:08 01/20/2019 09:47:44 Pain of left hip joint 4419117923 86446 M25.552 Insomnia 779229965 G47.0 0 Gastroesop hageal reflux disease 627138790 K21.9 Depressive disorder 3548 9007 F32.89 Allergic rhinitis 649090 04 J30.9 Anemia 789859288 D64.9 Low back pain 136411778 M54.5 Vitamin D deficiency 347 22805 E55.9 Hypothyroidism 17307860 E03.9 [id number] Shelly Muñiz MD [facility] (Adult Med) [address] [place] [address] [phone] 0 01/07/2020 16:55:41 01/10/2020 17:55:49 Low back pain 629009024 M54.5 Gastroesop hageal reflux disease 473634158 K21.9 Urinary incontinence 165 138616 R32 Chronic id iopathic constipation 49591183 K59.04 Insomnia 097183933 G47.0 0 Fibromyalgia 277408833 M 79.7 Depressive disorder 3548 9007 F32.89 Allergic rhinitis 047321 04 J30.9 Vitamin B1 2 level below reference range 196142806 R79.9 Vitamin D deficiency 347 12317 E55.9 Hypothyroidism 03475130 E03.9 [id number] Shelly Muñiz MD [facility] (Adult Med) [address] [place] [address] [phone] 0 03/08/2020 12:14:02 03/09/2020 11:30:27 COVID-19 326174976 U07.1 Discussed with patient, agreed to try medication s as ordered, also been advised to go to close ER any time for any concern. [id number] Shelly Muñiz MD [facility] (Adult Med) [address] [place] [address] [id number] 0 07/21/2020 08:11:40 07/21/2020 11:08:19 Allergic rhinitis 25865272 J30.9 Anemia 152285138 D64.9 Attention deficit hyperactivity disorder, predominantly inattentive type 34697807 F90.0 Chronic id iopathic constipation 28993115 K59.04 Vitamin B1 2 level below reference range 101036198 R79.9 Depressive disorder 3548 9007 F32.89 Fibromyalgia 713575213 M 79.7 Gastroesop hageal reflux disease 675120544 K21.9 Hypothyroidism 84747461 E03.9 Insomnia 479738363 G47.0 0 Low back pain 268981185 M54.5 Vitamin D deficiency 347 82136 E55.9 Hyperlipidemia 36672215 E78.5 [id number] MD Leon Ramirez (Adult Med) [address] [place] [address] [phone] 0 08/15/2021 12:00:06 08/16/2021 11:19:22 Sinusitis 87438445 J32.9 Low back pain 237438006 M54.[address] Fuller is out of the office, to prevent interrupti on of therapy and withdrawal , I have refilled the Hydrocodon eILPMP reviewedUD S neededCDA 01/18/2019 Acute sinusitis 84757458 J01.90 Allergic rhinitis 254158 04 J30.9 Insomnia 621451857 G47.0 0 Gastroesop hageal reflux disease 048660845 K21.9 Nausea 425227565 R11.0 Hypothyroidism 44465694 E03.9 High hemog lobin A1c level 977898466 R73.09 Hyperlipidemia 72014465 E78.5 Vitamin B1 2 level below reference range 385153499 R79.9 Depressive disorder 3548 9007 F32.89 Fibromyalgia 536551879 M 79.7 Vitamin D deficiency 347 47960 E55.9 [id number] MD Leon Ramirez (Adult Med) [address] [place] [address] [phone] 0 02/26/2022 10:38:25 02/27/2022 13:14:17 Acute bronchitis 52982886 J20.9 Allergic rhinitis 563616 04 J30.9 Vitamin B1 2 level below reference range 384140313 R79.9 Fibromyalgia 371949322 M 79.7 Gastroesop hageal reflux disease 800255860 K21.9 Hyperlipidemia 89134174 E78.5 Hypothyroidism 05090488 E03.9 Insomnia 627477838 G47.0 0 Prolapsed cervical intervertebral disc 983200908 M50.20 Vitamin D deficiency 347 73932 E55.9 [id number] MD Leon Boyd (Adult Med) [address] [place] [address] [id number] 0 07/02/2022 10:51:52 07/03/2022 10:26:01 Obesity 646971479 E66.9 Depression screening 171 018053 Z13.31 1 Acute otit is externa of right ear 7162443911 507556 H60.501 Gastroesop hageal reflux disease without esophagitis 054480392 K21.9 Chronic cough 53062822 R 05.3 Dyspnea 065784940 R06.00 Continue Albuterol inhaler as needed. Acute bact erial sinusitis 24662902 J01.90 Adjustment disorder with depressed mood 99143367 F43.21 Body mass index 30+ - obesity 858812481 Z68.30 [id number] MD Leon Boyd (Adult Med) [address] [place] [address] [id number] 0 12/30/2022 14:58:21 01/03/2023 10:28:36 Obesity 194261604 E66.9 Pain of ri ght hip joint 7161964458 37965 M25.551 Proceed with x-ray for further evaluation . Follow up in two weeks. Hypothyroidism 29967782 E03.9 Has not been taking medication . Will return tomorrow morning for fasting labs and TSH. Difficulty sleeping 3013 69399 Z72.820 Hyperlipid emia screening 553769844 Z13.166 [id number] MD Leon Boyd (Adult Med) [address] [place] [address] 62367-145 0 01/20/2023 12:10:13 01/21/2023 10:31:52 Abnormal vaginal odor 14422406 N89.8 Serous otitis media 8032 7007 H65.01 [...] will follow up in two weeks. Hyperglycemia 77364804 R 73.9 Elevated fasting glucose. Will check Hemoglobin A1C. Serum thyr oid stimulating hormone level outside reference range 642416147 R89.1 Patient would like to be treated with thyroid medication . TSH was barely elevated. Will repeat TSH. Hypercholesterolemia 136 88597 E78.00 LDL greater than 190. Will start high dose lipid. Repeat chlolester ol and check LFTs in eight weeks. Pain of ri ght hip joint 7117444099 26086 M25.551 Will get right hip xray. Will get records from pain management person. Painful mouth 674289539 K13.79 Unsure of etiology. Some symptoms sounded [...] or if she develops any skin lesions. 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 Will work on weight loss and diet control which could be contributi ng factors. Discussed with patient. Hyperglycemia 18725059 R 73.9 Elevated fasting glucose. Will check Hemoglobin A1C. Discussed diet. Consider Ozempic which will help with weight loss and glucose. Follow up in one to two weeks. Body mass index 30+ - obesity 786372062 Z68.30 Discussed diet. Patient is unable to do much exercise at this time due to pain. Mentioned the Mediterran yu diet. Consider putting her back on Ozempic which has helped with weight loss in the past and will help with glucose control. Anxiety 71175754 F41.9 Patient appears anxious. Somewhat rapid speech. Discuss further at follow up. [id number] MD Leon Boyd (Adult Med) [address] [place] [address] 92786-914 0 02/12/2023 14:03:12 02/21/2023 13:49:58 Bipolar disorder 21443010 F31.9 Advised her to make sure to keep regular appointmen ts with her psychiatri st and continue to discuss her concerns about impulsive behavior. Hyperglycemia 87755038 R 73.9 Elevated fasting glucose just at borderline of prediabete s and diabetes and Hemoglobin A1C was prediabete s. Patient is going to work on diet. Will start patient on Ozempic for glucose control and weight loss. Body mass index 30+ - obesity 008788873 Z68.30 Elevated BMI and elevated fasting glucose at borderline for diabetes. Will start patient on Ozempic for weight control and glucose control. Patient has taken this medication before. Will also work on diet. Follow up in one month. Anxiety 39683547 F41.9 Adjustment disorder with mixed emotional features 81072493 F43.23 We discussed the episodes of vomiting and passing out. These followed a very stressful event and were likely related to extreme anxiety and panic causing nausea and vomiting followed by vasovagal. She will let me know if she has any further episodes. [id number] [facility] [address] [place] [address] [phone] 0 03/14/2023 11:50:53 03/18/2023 11:49:17 Body mass index 30+ - obesity 910128698 Z68.30 Started Ozempic. Continue to work on Diet. Recommend Mediterran yu diet. Follow up in one month. Reduced libido 4393726 R 68.82 Will get records from other provider. Will check on reasons for treating with Allopurino l. Explained to patient that it will not work for her to have two primary care providers and she does understand that. She said she sees this provider for her women's health care. Hypothyroidism 00798202 E03.9 Most recent TSH normal. Continue present thyroid medication . Bipolar disorder 6504871 4 F31.9 Strongly encouraged patient to make [...] appointmen t she can let me know. [id number] MD Leon Boyd (Adult Med) [address] [place] [address] 85573-446 0 07/22/2023 11:06:49 07/24/2023 21:13:32 Drug abuse 25395932 F19.10 Going to rehab today. Follow up with me after rehab. Difficulty sleeping 3013 66226 Z72.820 Continue Trazadone to help with sleep. Hypercholesterolemia 136 86802 E78.00 Needs refill on cholestero l medication . Will need to repeat lipids and LFTs once she follows up when she is out of rehab. Gastroesop hageal reflux disease without esophagitis 278434028 K21.9 Needs refill on Omeprazole . Hyperglycemia 33650291 R 73.9 Tolerating Ozempic well. Increase to .5 mg weekly. Dyspnea 607397525 R06.00 Continue Albuterol inhaler as needed. Acute bronchitis 6553331 2 J20.9 Health Concerns Section Related Observation LastModified by Organization Detai ls LastModified Time None Recorded Concern Status LastModified by Organization Details LastModified Time None Recorded Advance Directives Directive None Recorded Payers Insurance Date Sequence Insurance Name Policy Number Policy Barth Covered Member ID Barth Member ID Guarantor Name 12/30/2022 2 *SELF PAY* Pa wendi Ferrell 12/30/2022 1 [facility] (O) [id number] Hope Ferrell [id number] Hope Ferrell 12/30/2022 1 [facility] Hope Ferrell [id number] Hope Ferrell 12/30/2022 1 [facility] (POS) Hope Ferrell [id number] Hope Ferrell 12/30/2022 1 [employer] [id number] Hope Ferrell [id number] Hope Ferrell 12/30/2022 1 [facility] - [facility] (MEDICARE - MEDICAID REPLACEMENT HMO) [id number] Hope Wang [id number] Hope Ferrell 08/11/2023 1 [facility] (MEDICAID HMO) [id number] Hope Wang [id number] Hope Ferrell 12/30/2022 1 [facility] - DOS PRIOR TO 2020 (MEDICAID REPLACEMENT - HMO) Hope Ferrell [id number] Hope Ferrell 12/30/2022 1 [facility] - [facility] (PPO) [id number] Hope Ferrell [id number] Hope Ferrell 12/30/2022 1 [facility] [id number] Hope Ferrell [id number] Hope Ferrell 07/07/2024 1 [facility] [id number] Enrique Ferrell [id number] Hope Ferrell Notes Date Note Type Note [...] stress right now, recently got back from [place] Ele Green MD Attn: Accounting[address] [place], [address], [facility] 01/20/2023 17:42:27 02/03/2023 text/html ROS as noted [...] resolved Ele Green MD Attn: Accounting[address] [place], [address], [facility] 02/06/2023 13:38:13 02/12/2023 text/html ROS as noted [...] Ele Green MD Attn: Accounting[address] [facility], [place], [address], [facility] 02/12/2023 17:40:41 03/14/2023 text/html [...] Ozempic Ele Green MD Attn: Accounting[address] [facility], [place], [address], [facility] 03/14/2023 13:15:43 07/22/2023 text/html ROS [...] ears Ele Green MD Attn: Accounting[address] [facility], [place], [address], [facility] 07/22/2023 12:08:21 OBGyn Episode No OBEpisode recorded.
--- OUTSIDE RECORDS SUMMARY | 2025-03-10 15:45 | XMS_ITS | Data Portability ---
Author Organization [place] - [facility] [employer], Main Office Address [address] [place] [address] Assessment No assessment recorded. Plan of Treatment Reminders Order Date Submit Date Provider Last Modified By Organization Details Last Modified Time Details Appointments None recorded. Lab HbA1c (hemoglobin A1c), blood 2024 025 [facility] ([facility]), [address] [place], [address], 08:17:28 Referral diabetic ophthalmolo gy referral - Please call patient to schedule an appointment . Thank you. 2024 025 [email or web address] [facility], [address] , [place], [address], 09:24:20 urologist referral - painful interstitia l cystitis . Please eval and treat. Please call patient to schedule an appointment . Thank you 2024 025 [email or web address] [facility] [address] Misti Zamarripa, [address] [facility]. [facility] [address], [place], [address], 5 08:47:56 Procedures None recorded. Surgeries None recorded. Imaging MAMMO, screening, digital, bilateral [address], [address] [facility] [address], [place], [address], 13:04:51 MAMMO, screening, digital, bilateral - Please call patient to schedule. [address], [address], [place], [address], 15:56:19 Medication Orders acyclovir 400 mg tablet 2024 025 [id number], [address] [facility], [place], [place], [id number], 09:35:10 Linzess 290 mcg capsule 2024 025 [facility] #[id number], [address] [facility], [place], [place], [id number], 10:25:46 Patient TargetsNo targets recorded. Patient Instructions Encounter Date Encounter Id Patient Instructions Last Modified By Organization Details Last Modified Time 09/17/2024 [id number] She's not fastin g , so we will draw lipid panel , cmp next time [email or web address] Not available 09/17/2024 09:55:41 Reason for Referral Urologist Referral for Pain of truncal structure painful interstitial cystitis . Please eval and treat. Please call patient to schedule an appointment. Thank you Referring Physician: Carlos Fuller [facility] Medicine, Encounter Date: 09/17/2024 Diabetic Ophthalmology Refer ral for Diabetes mellitus Please call patient to schedule an appointment. Thank you. Referring Physician: Carlos Fuller [facility] Medicine, Encounter Date: 09/17/2024 Results Created Date Observation Date Name Description Value Unit Range Abnormal Flag Note LastModifiedBy Organization Detail LastModifiedTime Result Notes None recorded. Problems Name Problem SNOMED Code Status Onset Date Resolution Date Notes Provider Name and Address Organization Details Recorded Time Plantar fascial fibromatosis 28419217 Active Not Available [facility] 3 07:31:46 Backache 225273915 Active Not Available [facility] 3 07:31:46 Microscopic hematuria 371371040 Active Not Available [facility] 3 07:31:46 Herpesvirus infection 75750619 Active Not Available [facility] 3 07:31:46 Thyroid dysfunction 015489514 Active Not Available [facility] 3 07:31:46 Closed fracture of lateral malleolus 04945488 Active Not Available [facility] 3 07:31:46 Depressive disorder 14602693 Active Not Available [facility] 3 07:31:46 Inflammatory disorder of extremity 873447686 Active Not Available [facility] 3 07:31:46 Mixed urinary incontinence 659954953 Active Not Available [facility] 3 07:31:46 Fracture of lower leg 897850679 Active Not Available [facility] 3 07:31:46 Irritable bowel syndrome characterized by constipation 645230496 Active 2024 DEBO Tripathi [address], [address], [place], [address] , [place] [facility] 5 10:24:20 Screening mammography Active 2024 DEBO Tripathi [address], [address], [place], [address] , [place] [facility] 5 10:31:07 Adult health examination Active 2024 DEBO Tripathi [address], [address], [place], [address] , [employer] [place] [employer] [facility] 5 12:38:45 Chronic primary bladder pain syndrome Active 2024 DEBO Tripathi [address], [address], [place], [address] , [place] [facility] [place] [facility] 5 09:29:16 Pain of truncal structure 967890438 Active 2024 DEBO Tripathi [address], [address], [place], [address] , [place] [facility] [place] [facility] 5 09:30:03 Herpes simplex 80055951 Active 2024 DEBO Tripathi [address], [address], [place], [address] , [place] [facility] 5 09:34:15 Maturity onset diabetes of the young, type 2 939687573 Active 2024 DEBO Tripathi [address], [address], [place], [address] , [facility] [email or web address] [facility] 5 09:42:44 Diabetes mellitus 18918213 Active 2024 DEBO Tripathi [address], [place], [address] , [facility] [email or web address] [facility] 5 09:43:13 Notes:Earline is her pain kami gement Problem Notes None recorded. Procedures Surgical History Date Name Laterality Status Provider Name and Address Organization Details Recorded Time 07/12/19 10 tonsillectomy completed Heidi Howell RN [facility] 07/23/2024 10:11:38 06/19/19 10 partial substernal thyroidectomy completed Heidi Howell RN [facility] 07/23/2024 10:12:30 08/03/18 74 procedure on urethra completed Heidi Howell RN [facility] 07/23/2024 10:13:24 Imaging Results None recorded. Procedure Notes None recorded. Medical Equipment None Reported. Allergies Allergen ID Allergen Name Allergen Category Reaction Reaction Severity Criticality Documentation Date Start Date Code Code System Note Provider Name and Address Organization Details Recorded Time 87426 Substance with sulfonami de structure and antibacte rial mechanism of action (substanc e) medicatio n itching mild low 07/23/2024 45143 8003 SNOMED Heidi Howell RN [facility] 5 09:59:23 Medications Name Sig Start Date [...] Updated DateTime 5 162.56 cm 25.6 kg/m2 28322.6 1 g 97.9 [degF] 102 /min 97 % 97 % 120/70 mm[Hg] Heidi Howell RN [place] [email or web address] [facility] 5 09:58:46 Date Recorded Body height Body mass index (BMI) Body weight Body temperature Oxygen saturation Oxygen saturation in Arterial blood by Pulse oximetry Heart rate Systolic And Diastolic Provider Name and Address Organization Details Last Updated DateTime 5 162.56 cm 26.4 kg/m2 48582.2 2 g 98.8 [degF] 100 % 100 % 78 /min 118/78 mm[Hg] CHUNG [place] [employer] [facility] [employer] 09:21:33 Social History Question Answer Notes LastModified by Organizat ion Details LastModified Time Tobacco Smoking Status Former Smoker Heidi Howell RN null, [employer] 07/23/2024 10:11:07 What Is Your Level Of Caffeine Consumption? Occasional 2 Times A Month Drinks Pepsi [email or web address] Information not available 07/23/2024 When Did You Quit Smoking? 16+yearssincel astcigarette Quit 2000 [email or web address] Information not available 07/23/2024 What Is Your Current Pack Years? 10packyears [email or web address] Information not available 07/23/2024 At What Age Did You Start Smoking Tobacco? 27 [email or web address] Information not available 07/23/2024 How Much Tobacco Do You Smoke? 0.5 PPD [email or web address] Information not available 07/23/2024 How Many Years Have You Smoked Tobacco? 3 [email or web address] Information not available 07/23/2024 How Many Years Have You Used E-cigarettes Or Vape? 10 [email or web address] Information not available 07/23/2024 Sex: Unknown Functional Status Question Answer Note LastModified by Organizat ion Details LastModified Time Do you use any illicit or recreational drugs? No [email or web address] Information not available 07/23/2024 Do you or have you ever used any other forms of tobacco or nicotine? Yes [email or web address] Information not available 07/23/2024 What is your level of alcohol consumption? Occasional [email or web address] Information not available 07/23/2024 Do you or have you ever used smokeless tobacco? Never used smokeless tobacco Information not available 07/23/2024 Do you or have you ever used e-cigarettes or vape? Current user of electronic cigarettes [email or web address] Information not available 07/23/2024 Mental Status None recorded. Family History Relationship Description Onset Age of this Age Resolved Age Notes LastModified by Organization Details LastModified Time Father Parkinson's disease 45 78 [email or web address] Not available 07/23 10:06:24 Mother Familial idiopathic pulmonary fibrosis 66 66 [email or web address] Not available 07/23 10:07:19 Sister Familial idiopathic pulmonary fibrosis 52 52 [email or web address] Not available 07/23 10:07:19 Medical History No medical history recorded. Gynecological HistoryNo gynecological history recorded. Obstetrics History GPAL:G 0 P 0 0 0 0 Past Encounters Encounter ID Performer Location Encounter Start Date Encounter Closed Date Diagnosis/Indication Diagnosis SNOMED-CT Code Diagnosis ICD10 Code Diagnosis IMO Codes Diagnosis Note [id number] Pedro Flores MD [address] [address] 07/23/2024 09:48:55 07/23/2024 11:33:41 Irritable bowel syndrome characterized by constipation 820300758 K58.1 Screening mammography 24 157381 Z12.31 Adult heal th examination 111970976 Z00.00 [id number] Pedro Flores MD [address] [address] 09/17/2024 09:09:16 09/24/2024 08:37:31 Pain of truncal structure 875301409 N30.10 06843961 Herpes simplex 31312189 B00.9 91320 Screening mammography 24 095362 Z12.31 Maturity o nset diabetes of the young, type 2 645326368 E13.9 67639467 Diabetes mellitus 571104 09 E11.9 Chronic pr imary bladder pain syndrome 7950297965 7104 N30.10 38413 Health Concerns Section Related Observation LastModified by Organization Detai ls LastModified Time None Recorded Concern Status LastModified by Organization Details LastModified Time None Recorded Advance Directives Directive None Recorded Payers Insurance Date Sequence Insurance Name Policy Number Policy Barth Covered Member ID Barth Member ID Guarantor Name 12/26/2024 1 [employer] [id number] Hope Ferrell [id number] Hope Ferrell 07/02/2024 1 [facility] Enrique Ferrell [id number] Hope Ferrell 12/26/2024 1 R [id number] Hope Ferrell [id number] Hope Ferrell 12/26/2024 2 R [id number] Hope Ferrell [id number] Hope Ferrell Notes Date Note Type Note Provider Name and Address Organization Details Recorded Time 07/23/2024 text/html ROS as noted in the HPI hands an arms numb at night. A1c is 5.1 , was dagnosed as diabetic to receive the ozempic . has a year's supply DEBO Tripathi [address], [address], [place], [address], [employer] 07/31/2024 12:39:48 09/17/2024 text/html ROS as noted in the HPI needs a referral to a new urologist for her interstitial cystitis . is in skilled nursing , him DEBO Tripathi [address], [address], [place], [address], [employer] 09/21/2024 10:10:27 OBGyn Episode No OBEpisode recorded.
--- OUTSIDE RECORDS SUMMARY | 2025-03-10 15:45 | XMS_ITS | Clinical Summary ---
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 Gender Identity Not on file Sexual Orientation Not on file Obstetrics History Last Filed Vital Signs Vital Sign Reading Time Taken Comments Blood Pressure 101/61 09/13/2022 12:42 PM CDT Pulse 98 09/13/2022 12:42 PM CDT Temperature 36.5 C (97.7 F) 09/13/2022 12:42 PM CDT Respiratory Rate 18 07/01/2023 9:00 AM MEDICAL AND HEALTH SERVICES MANAGER Oxygen Saturation 96% 09/13/2022 12:42 PM CDT room air Inhaled Oxygen Concentration - - Weight 83.5 kg (184 lb) 07/01/2023 9:00 AM MEDICAL AND HEALTH SERVICES MANAGER Height 162.6 cm (5' 4) 07/01/2023 9:00 AM MEDICAL AND HEALTH SERVICES MANAGER Body Mass Index 31.58 07/01/2023 9:00 AM MEDICAL AND HEALTH SERVICES MANAGER Plan of Treatment Health Maintenance Due Date [...] Vaccine (#1) 2025 7, 01/23/2016, 02/07/2015 Insurance [facility] H[facility]/PPO Address: [place] [id number] [facility] HMO/PPO Address: [address] [address] Care Teams Platform Attendant Relationship Specialty Start Date End Date Ele Green MD PCP - General Emergency Medicine 07/11/22
== END 2025-03-10 15:34 | disposition home or self-care (01) ==
PROVIDERS: Visit Provider Family Medicine
DX: N28.1 Cyst of kidney, acquired (principal); N28.89 Other specified disorders of kidney and ureter
CPT/HCPCS: 76770

== ENCOUNTER 2025-04-13 14:51 | Emergency (ER) | payer OTHER, SELFPAY ==
--- NOTE | ~2025-04-13 | US_ITS ---
EXAMINATION: US transvaginal INDICATION: Vaginal bleeding Comparison:No prior studies for comparison. TECHNIQUE: Multiple transabdominal and endovaginal sonographic images of the pelvis performed. FINDINGS: The uterus measures 10 x 4 x 5 cm. The endometrial complex measures 8 mm. The right ovary measures 2.3 x 1.3 x 1.6 cm and the left ovary measures 2.1 x 2 x 1.3 cm. There are small follicles in each ovary. Normal doppler signal in both ovaries. There is no free fluid in the pelvis. There are no abnormal masses seen on either side. IMPRESSION: 1. Unremarkable pelvic ultrasound. Reviewed, dictated and finalized at location I. CORRECTION OFFICER
[2025-04-13 15:01] VITALS: BP 108/64; PULSE 87; RESP 18; TEMP 36.5; O2SAT 98
[2025-04-13 15:05] VITALS: BP 108/64; PULSE 68; RESP 18; O2SAT 98
[2025-04-13 15:30] LABS: Hematocrit 37.4 % (37.0-47.0); Hemoglobin 12.9 g/dL (12.0-15.0); Immature Granulocyte Percent A 0.5 % (0-0.5); Lymphocytes Absolute Auto 2.86 K/mm3 (0.9-3.2); Mean Corpuscular HGB Conc 34.5 g/dl (32-36); Mean Corpuscular Hemoglobin 32.8 pg (26-34); Mean Corpuscular Volume 95.2 fl (80-100); Nucleated Red Blood Cells Absolute Auto 0.000 K/mm3 (0.0-0.012); Nucleated Red Blood Cells Perc 0.0 % (0.0-0.2); Platelet Count Result 321 k/mm3 (150-375); Red Blood Count 3.93 M/mm3 (4.2-5.4); White Blood Count 10.0 K/mm3 (4.5-10.0)
[2025-04-13 15:41] LABS: Anion Gap 4 mmol/L (4-12); Blood Urea Nitrogen 14 mg/dL (7-17); Calcium 8.5 mg/dL (8.4-10.2); Carbon Dioxide 24 mmol/L (22-30); Chloride 106 mmol/L (98-107); Estimated CRCL calculation 56 ml/min; Estimated Glomerular Filt Rate > 60; Glucose 86 mg/dL (65-110); Potassium 3.7 mmol/L (3.4-5.0); Sodium 134 mmol/L (137-145)
[2025-04-13 15:48] LABS: INR 0.9; Prothrombin Time 12.5 Seconds (11.1-14.7)
[2025-04-13 15:49] LABS: Partial Thromboplastin Time 24.9 Seconds (22.3-36.8)
--- OUTSIDE RECORDS SUMMARY | 2025-04-13 16:15 | XMS_ITS | Clinical Summary ---
Author Organization [facility] Address [address] [place] [address] Care Team Providers Care Infrastructure Consultant Name Role Phone Carlos Fuller Primary Care Provider + Allergies Active Allergy Reactions Criticality Noted Date Comments Sulfa Antibiotics Angioedema,Itching,Unknown Medium Medications No known medications Social History Tobacco Use Types Packs/Day Years [...] Influenza Adult (#1) 2025 01/28/2017, 01/23/2016, 02/07/2015 Hepatitis A Vaccines Aged Out No long er eligible based on patient's age to complete this topic Meningococcal B Vaccine Aged Out No l onger eligible based on patient's age to complete this topic Meningococcal Vaccine Aged Out No beatriz colby eligible based on patient's age to complete this topic RSV Immunizations Under 20 Months Aged Out No longer eligible b ased on patient's age to complete this topic Procedures Procedure Name Priority Date/Time Associated Diagnosis Comments HEALTH FAIR WITH LIPID Routine 01/28/2017 6:00 AM CDT from Last 3 Months or Most Recently Relevant to Health Maintenance Results * (ABNORMAL) HEALTH FAIR WITH LIPID (01/28/2017 [...] 98 - 107 MMOL/L 01/28/2017 1:56 PM [facility] CO2 25.0 22 - 29 MMOL/L 01/28/2017 1:56 PM [facility] CREATININE S/P/B 0.67 0.60 - 1.10 MG/DL 01/28/2017 1:56 PM [facility] CALCIUM S/P/B 8.7 8.4 - 10.2 MG/DL 01/28/2017 1:56 PM [facility] ALBUMIN S/P/B 3.8 3.5 - 5.0 G/DL 01/28/2017 1:56 PM [facility] TOTAL PROTEIN S/P/B 6.8 6.4 - 8.3 G/DL 01/28/2017 1:56 PM [facility] BILIRUBIN TOTAL S/P/B 0.3 0.2 - 1.2 MG/DL 01/28/2017 1:56 PM [facility] ALT 11 0 - 31 U/L 01/28/2017 1:56 PM [facility] AST 13 5 - 34 U/L 01/28/2017 1:56 PM [facility] ALKALINE PHOSPHATASE S/P/B 104 30 - 115 U/L 01/28/2017 1:56 PM [facility] CHOLESTEROL 195 <200 MG/DL 01/28/2017 1:56 PM [facility] TRIGLYCERIDES 64 <150 MG/DL 01/28/2017 1:56 PM [facility] HDL 50(L) >60 MG/DL 01/28/2017 1:56 PM [facility] Comment:AN HDL OF >60 IS NO RISK, RISK IS DEFINED <40 LDL (CALCULATED) 132(H) <100 MG/DL 01/28/2017 1:56 PM CDT [facility] TSH 0.397 0.35 - 4.94 uIU/ML 01/28/2017 3:23 PM T [facility] A/G RATIO 1.3 1.1 - 1.9 RATIO 01/28/2017 1:56 PM CDT [facility] WBC 9.3 4.8 - 10.8 x10'3/uL 01/28/2017 12:14 PM CDT [facility] RBC 3.83(L) 4.10 - 5.10 x10'6/uL 01/28/2017 12:14 PM T [facility] HGB 11.7(L) 12.0 - 16.0 G/DL 01/28/2017 12:14 PM CDT [facility] HCT 36.0 36 - 46 % 01/28/2017 12:14 PM T [facility] MCV 94.0 80 - 100 FL 01/28/2017 12:14 PM CDT [facility] MCH 30.5 26.0 - 34.0 PG 01/28/2017 12:14 PM T [facility] MCHC 32.5 31.0 - 37.0 G/DL 01/28/2017 12:14 PM CDT [facility] PLT 364(H) 150 - 350 x10'3/uL 01/28/2017 12:14 PM T [facility] OTHER (TYPE IN COMMENTS) 01/28/2017 6:00 AM CDT 01/28/2017 10:34 AM CDT Comment:SERUM SPECIMEN~WHOLE BLOOD SAMPLE us Generic Conversion Md [facility] Final R esult [facility] [address] [place] [address], from Last 3 Months or Most Recently Relevant to Health Maintenance Insurance [facility] Care Teams Infrastructure Consultant Relationship Specialty Start Date End Date Carlos Fuller PA [facility] [place] [address] PCP - General PHYSICIAN STAFF WEAPONS OFFICER 11/23/24
--- OUTSIDE RECORDS SUMMARY | 2025-04-13 16:15 | XMS_ITS | Clinical Summary ---
Author Organization [facility] Address [address] [place] [address] Care Team Providers Care System Auditor Name Role Phone Job Fuller APRN-JOSÉ MIGUEL Unavailable [phone] Job Fuller APRN-JOSÉ MIGUEL Primary Care Provider Source Comments [facility],non-owned Affiliates and Associated Physician Practices is amultiple site organization consisting of ambulatory clinics and hospital sitesin [place], [place], [place] and [place]. This disclosure is being madepursuant to the Care Everywhere program and may not contain all information available regarding this patient. Last updated 18.[facility] Allergies Active Allergy Reactions Criticality Noted [...] Years Used Date Smoking Tobacco: Former Cigarettes 0 Q uit: 05/12/2001 Smokeless Tobacco: Never Tobacco [...] PM CDT Pulse 105 07/07/2020 10:58 AM CAT SWAMPER Temperature 36.1 C (97 F) 07/07/2020 10:58 AM CAT SWAMPER Respiratory Rate 20 06/02/2020 9:05 AM CAT SWAMPER Oxygen Saturation 96% 07/07/2020 10:58 AM CAT SWAMPER Inhaled Oxygen Concentration - - Weight 67.2 [...] 50+ (1 of 2 - PCV) 1989 Cervical Cancer Screening 1991 PAP SMEAR 1991 PAP with HPV 2000 ZOSTER VACCINE (1 of 2) 2020 DIABETES [...] patient's age to complete this topic Insurance [facility] Member Subscriber Plan / Payer (Ef fective 2024-Present) Name:Hope Barnett Relation to Subscriber:Spouse Name:ENRIQUE BARNETT Date of :1965 Address: [address] [place] [address] Payer ID:[id number] (NAIC) Type:PPO Address: [address] * Guarantor: HOPE BARNETT Account Type Relation to Patient Date of Phone Billing Address Personal/Family [address] [place] [address] [facility] * Guarantor: HOPE BARNETT Account Type Relation to Patient Date of Phone Billing Address Personal/Family [address] [place] [phone] * Guarantor: HOPE BARNETT Account Type Relation to Patient Date of Phone Billing Address Personal/Family [address] [place] [address] Care Teams System Auditor Relationship Specialty Start Date End Date Job Fuller APRN-CNP [address] [place] [address] PCP - General 06/06/20 Job Fluler APRN-CNP [address] [place] [address] 05/29/20
--- OUTSIDE RECORDS SUMMARY | 2025-04-13 16:15 | XMS_ITS | Encounter Summary ---
Author Organization [facility] Address [address] [place] [address] Care Team Providers Care Fiberglass Quality Technician Name Role Phone Job Fuller HOME ADVISOR-ASSISTANT PROFESSOR OF [employer] Unavailable [phone] Job Fuller HOME ADVISOR-ASSISTANT PROFESSOR OF [employer] Primary Care Provider Encounter Details Date Type Department Care Team (Late st Contact Info) Description 05/16/2023 Lab Requisition [facility] Lab [address] [place] [address] Jim Westbrook MD [address] [place] [address] Social History Tobacco Use Types Packs/Day Years Used Date Smoking Tobacco: Former Cigarettes 0 Q uit: 05/12/2001 Smokeless Tobacco: Never Alcohol [...] Comments DERMATOPATHOLOGY Routine 05/15/2023 12:0 0 AM CAR RENTAL MANAGER documented in this encounter Results * DERMATOPATHOLOGY (05/15/2023 12:00 AM CAR RENTAL MANAGER) Case Report Dermatopathology Report Case: [id number] Authorizing Provider: Jim Westbrook MD Collected: 05/15/2023 12:00 AM Ordering Location: [facility] Lab Received: 05/16/2023 12:53 PM Pathologist: Alisia Masters MD Specimen: Skin, left upper chest 2:48 PM [facility] DERMATOPATHOLOGY [facility]ORATORY Final Diagnosis Specimen A. SKIN, left upper chest: HYPERPLASTIC (HYPERTROPHIC) ACTINIC KERATOSIS WITH ACANTHOLYTIC FEATURES (L57.0) (see microscopic description) 2:48 PM [facility] DERMATOPATHOLOGY LABORATORY at [address] CAR RENTAL MANAGER Clinical History AK vs BCCA. Path#[id number] 2:48 PM [facility] [...] characteristic determined by the Dermatopathology Laboratory at [facility], directed by Dr. Neeraj Case. These tests need not be, and therefore are not, approved by the [place] Food and Drug Administration. The tests are used for clinical purposes. Billing Codes Specimen Charges Stain Charges 81203 1 2:48 PM [facility] DERMATOPATHOLOGY LABORATORY Embedded Images 2:48 PM [facility] DERMATOPATHOLOGY LABORATORY Pathology/Cytolog y TISSUE SPECIMEN FROM SKIN / Unknown 05/15/2023 05/16/2023 12:53 PM CAR RENTAL MANAGER us Jim Westbrook MD LAB - PATHOLOGY/CYTOLOGY ORDER KERON Final Result DERMATOPATHOLOGY LABORATORY [facility] - Department of Dermatology [facility] Medicine [address] [place] [address], [address] [place] [address], [facility] [phone] documented in this encounter Visit Diagnoses Not on filedocumented in this encounter Care Teams Fiberglass Quality Technician Relationship Specialty Start Date End Date Job Fuller APRN-CNP [address] [place] [address] PCP - General 06/06/20 Job Fuller APRN-CNP [address] [place] [address] 05/29/20 documented as of this encounter
--- OUTSIDE RECORDS SUMMARY | 2025-04-13 16:15 | XMS_ITS | Data Portability ---
Author Organization [place] [facility] [employer], Main Office Address [address] [place] [address] Assessment No assessment recorded. Plan of Treatment Reminders Order Date Submit Date Provider Last Modified By Organization Details Last Modified Time Details Appointments None recorded. Lab HbA1c (hemoglobin A1c), blood 2024 025 [facility] ([facility]), [address] [place], [address], 08:17:28 Referral diabetic ophthalmolo gy referral - Please call patient to schedule an appointment . Thank you. 2024 025 [email or web address] [facility], [address] , [place], [address], 09:24:20 urologist referral - painful interstitia l cystitis . Please eval and treat. Please call patient to schedule an appointment . Thank you 2024 025 [email or web address] [facility] [address] Misti Zamarripa, [address] [facility]. [facility] [address], [place], [address], 5 08:47:56 Procedures None recorded. Surgeries None recorded. Imaging MAMMO, screening, digital, bilateral [address], [address] [facility] [address], [place], [address], 13:04:51 MAMMO, screening, digital, bilateral - Please call patient to schedule. [address], [address], [place], [address], 15:56:19 Medication Orders acyclovir 400 mg tablet 2024 025 [id number], [address] [facility], [place], [place], [id number], 09:35:10 Linzess 290 mcg capsule 2024 025 [facility] #[id number], [address] [facility], [place], [place], [id number], 10:25:46 Patient TargetsNo targets recorded. Patient Instructions Encounter Date Encounter Id Patient Instructions Last Modified By Organization Details Last Modified Time 09/17/2024 [id number] She's not fastin g , so we will draw lipid panel , cmp next time [email or web address] Not available 09/17/2024 09:55:41 Reason for Referral Urologist Referral for Pain of truncal structure painful interstitial cystitis . Please eval and treat. Please call patient to schedule an appointment. Thank you Referring Physician: Carlos Fuller [facility], Encounter Date: 09/17/2024 Diabetic Ophthalmology Refer ral for Diabetes mellitus Please call patient to schedule an appointment. Thank you. Referring Physician: Carlos Fuller [facility], Encounter Date: 09/17/2024 Results Created Date Observation Date Name Description Value Unit Range Abnormal Flag Note LastModifiedBy Organization Detail LastModifiedTime Result Notes None recorded. Problems Name Problem SNOMED Code Status Onset Date Resolution Date Notes Provider Name and Address Organization Details Recorded Time Plantar fascial fibromatosis 03644934 Active Not Available [facility] 3 07:31:46 Backache 337396123 Active Not Available [facility] 3 07:31:46 Microscopic hematuria 401826967 Active Not Available [facility] 3 07:31:46 Herpesvirus infection 44599506 Active Not Available [facility] 3 07:31:46 Thyroid dysfunction 704580288 Active Not Available [facility] 3 07:31:46 Closed fracture of lateral malleolus 36532776 Active Not Available [facility] 3 07:31:46 Depressive disorder 75460945 Active Not Available [facility] 3 07:31:46 Inflammatory disorder of extremity 329686270 Active Not Available [facility] 3 07:31:46 Mixed urinary incontinence 396423091 Active Not Available [facility] 3 07:31:46 Fracture of lower leg 758355821 Active Not Available [facility] 3 07:31:46 Irritable bowel syndrome characterized by constipation 361108974 Active 2024 DEBO Tripathi [address], [address], [place], [address] , [place] [facility] 5 10:24:20 Screening mammography Active 2024 DE[facility] Tripathi [address], [address], [place], [address] , [place] [facility] 5 10:31:07 Adult health examination Active 2024 DEBO Tripathi [address], [address], [place], [address] , [employer] [place] [facility] [employer] [facility] 5 12:38:45 Chronic primary bladder pain syndrome Active 2024 DEBO Tripathi [address], [address], [place], [address] , [place] [facility] 5 09:29:16 Pain of truncal structure 901264705 Active 2024 DEBO Tripathi [address], [address], [place], [address] , [place] [facility] 5 09:30:03 Herpes simplex 08366997 Active 2024 DE[facility] Tripathi [address], [address], [place], [address] , [place] [facility] 5 09:34:15 Maturity onset diabetes of the young, type 2 408635897 Active 2024 DEBO Tripathi [address], [address], [place], [address] , [facility] [email or web address] [facility] 5 09:42:44 Diabetes mellitus 79598692 Active 2024 DE[facility] Tripathi [address], [address], [place], [address] , [facility] [email or web address] [facility] 5 09:43:13 Notes:Earline is her pain kami gement Problem Notes None recorded. Procedures Surgical History Date Name Laterality Status Provider Name and Address Organization Details Recorded Time 07/12/19 10 tonsillectomy completed Heidi Howell RN [facility] 07/23/2024 10:11:38 06/19/19 10 partial substernal thyroidectomy completed Heidi Howell RN [facility] 07/23/2024 10:12:30 08/03/18 74 procedure on urethra completed Heidi Howell RN [facility] 07/23/2024 10:13:24 Imaging Results None recorded. Procedure Notes None recorded. Medical Equipment None Reported. Allergies Allergen ID Allergen Name Allergen Category Reaction Reaction Severity Criticality Documentation Date Start Date Code Code System Note Provider Name and Address Organization Details Recorded Time 27513 Substance with sulfonami de structure and antibacte rial mechanism of action (substanc e) medicatio n itching mild low 07/23/2024 14483 8003 SNOMED Heidi Howell RN [facility] 5 09:59:23 Medications Name Sig Start Date [...] weight Body temperature Heart rate Oxygen saturation Systolic And Diastolic Provider Name and Address Organization Details Last Updated DateTime 5 162.56 cm 25.6 kg/m2 56235.6 1 g 97.9 [degF] 102 /min 97 % 120/70 mm[Hg] Heidi Howell RN [facility] [email or web address] [facility] 5 09:58:46 Date Recorded Body height Body mass index (BMI) Body weight Body temperature Oxygen saturation Heart rate Systolic And Diastolic Provider Name and Address Organization Details Last Updated DateTime 5 162.56 cm 26.4 kg/m2 47940.2 2 g 98.8 [degF] 100 % 78 /min 118/78 mm[Hg] CHUNG Marroquin [place] [facility] 09:21:33 Social History Question Answer Notes LastModified by [email or web address] Details LastModified Time Tobacco Smoking Status Former Smoker Heidi Howell RN [facility], [facility] [employer] 07/23/2024 10:11:07 What Is Your Level Of Caffeine Consumption? Occasional 2 Times A Month Drinks Pepsi [email or web address] Information not available 07/23/2024 When Did You Quit Smoking? 16+yearssincel astcigarette Quit 2000 [email or web address] Information not available 07/23/2024 What Is Your Current Pack Years? 10packyears [email or web address] Information not available 07/23/2024 At What Age Did You Start Smoking Tobacco? 27 [email or web address] Information not available 07/23/2024 How Much Tobacco Do You Smoke? 0.5 PPD [email or web address] Information not available 07/23/2024 How Many Years Have You Smoked Tobacco? 3 [email or web address] Information not available 07/23/2024 How Many Years Have You Used E-cigarettes Or Vape? 10 [email or web address] Information not available 07/23/2024 Sex: Unknown Functional Status Question Answer Note LastModified by [employer] Details LastModified Time Do you use any illicit or recreational drugs? No [email or web address] Information not available 07/23/2024 Do you or have you ever used any other forms of tobacco or nicotine? Yes [email or web address] Information not available 07/23/2024 What is your level of alcohol consumption? Occasional [email or web address] Information not available 07/23/2024 Do you or have you ever used smokeless tobacco? Never used smokeless tobacco [email or web address] Information not available 07/23/2024 Do you or have you ever used e-cigarettes or vape? Current user of electronic cigarettes [email or web address] Information not available 07/23/2024 Mental Status None recorded. Family History Relationship Description Onset Age of this Age Resolved Age Notes LastModified by Organization Details LastModified Time Father Parkinson's disease 45 78 [email or web address] Not available 07/23 10:06:24 Mother Familial idiopathic pulmonary fibrosis 66 66 [email or web address] Not available 07/23 10:07:19 Sister Familial idiopathic pulmonary fibrosis 52 52 Not available 07/23 10:07:19 Medical History No medical history recorded. Gynecological HistoryNo gynecological history recorded. Obstetrics History GPAL:G 0 P 0 0 0 0 Past Encounters Encounter ID Performer Location Encounter Start Date Encounter Closed Date Diagnosis/Indication Diagnosis SNOMED-CT Code Diagnosis ICD10 Code Diagnosis IMO Codes Diagnosis Note [id number] Pedro Flores MD [address] [address] 07/23/2024 09:48:55 07/23/2024 11:33:41 Irritable bowel syndrome characterized by constipation 585680385 K58.1 Screening mammography 24 966942 Z12.31 Adult heal th examination 504718623 Z00.00 [id number] Pedro Flores MD [address] [address] 09/17/2024 09:09:16 09/24/2024 08:37:31 Pain of truncal structure 744214186 N30.10 20988045 Herpes simplex 74233746 B00.9 01841 Screening mammography 24 080648 Z12.31 Maturity o nset diabetes of the young, type 2 533741145 E13.9 36396320 Diabetes mellitus 479576 09 E11.9 Chronic pr imary bladder pain syndrome 9560660931 7104 N30.10 15471 Health Concerns Section Related Observation LastModified by Organization Detai ls LastModified Time None Recorded Concern Status LastModified by Organization Details LastModified Time None Recorded Advance Directives Directive None Recorded Payers Insurance Date Sequence Insurance Name Policy Number Policy Barth Covered Member ID Barth Member ID Guarantor Name 12/26/2024 1 [place] [id number] Hope Ferrell [id number] Hope Ferrell 07/02/2024 1 [facility] Gh[facility]an [id number] Hope Ferrell 12/26/2024 1 [facility] [id number] Hope Ferrell [id number] Hope Ferrell 12/26/2024 2 [employer] [id number] Hope Ferrell [id number] Hope Ferrell Notes Date Note Type Note Provider Name and Address Organization Details Recorded Time 07/23/2024 text/html ROS as noted in the HPI hands an arms numb at night. A1c is 5.1 , was dagnosed as diabetic to receive the ozempic . has a year's supply DEBO Tripathi [address], [place], [address], [employer] 07/31/2024 12:39:48 09/17/2024 text/html ROS as noted in the HPI needs a referral to a new urologist for her interstitial cystitis . is in group home , him DEBO Tripathi [address], [place], [address], [employer] 09/21/2024 10:10:27 OBGyn Episode No OBEpisode recorded.
--- OUTSIDE RECORDS SUMMARY | 2025-04-13 16:15 | XMS_ITS | Clinical Summary ---
Author Organization [facility] Address [facility] [place] [address] Care Team Providers Care Box Blank Machine Feeder Name Role Phone Ele Green MD Primary [...] on file Legal Sex Female 7:02 AM RAILROAD COOK Gender Identity Not on file Sexual Orientation Not on file Last Filed Vital Signs Vital Sign Reading Time Taken Comments Blood Pressure 101/61 09/13/2022 12:42 PM CDT Pulse 98 09/13/2022 12:42 PM CDT Temperature 36.5 C (97.7 F) 09/13/2022 12:42 PM CDT Respiratory Rate 18 07/01/2023 9:00 AM RAILROAD COOK Oxygen Saturation 96% 09/13/2022 12:42 PM CDT room air Inhaled Oxygen Concentration - - Weight 83.5 kg (184 lb) 07/01/2023 9:00 AM RAILROAD COOK Height 162.6 cm (5' 4) 07/01/2023 9:00 AM RAILROAD COOK Body Mass Index 31.58 07/01/2023 9:00 AM RAILROAD COOK Plan of Treatment Health Maintenance Due Date Last Done Comments Breast Cancer Screening-Mammogram 1970 Cervical Cancer Screening 1970 Colon Cancer Screening-Colonoscopy 1970 Depression Screening 1970 Hepatitis C Screening 1970 DTaP/Tdap/Td Vaccine (1 - Tdap) 1981 Hepatitis B Screening 1988 Regular Well Visit/Exam 18-64 1988 Pneumococcal vaccine <65 (1 of 2 - PCV) 1989 Zoster Vaccine (1 of 2) 2020 Covid-19 Vaccine (2 - 2024- season) 01/10/202507/2020 Influenza Vaccine (#1) 2025 7, 01/23/2016, 02/07/[address] [place] [address] [place] [address] [facility] Member Subscriber Plan / Payer (Ef fective 2022-Present) Name:Hope Barnett Relation to Subscriber:Spouse Name:ENRIQUE BARNETT Date of :1965 (Home) Address: [address] [place] [address] Payer ID:[id number] (NAIC) Type:[facility] HMO/PPO Address: [place] [phone] Care Teams Box Blank Machine Feeder Relationship Specialty Start Date End Date Ele Green MD PCP - General Emergency Medicine 07/11/22
--- OUTSIDE RECORDS SUMMARY | 2025-04-13 16:15 | XMS_ITS | Encounter Summary ---
Author Organization [facility] Address [address] [place] [address] Care Team Providers Care Racing Board Marker Name Role Phone Ele Green MD Primary Care Provider [phone] Carlos Fuller Primary Care Provider + Encounter Details Date Type Department Care Team (Late st Contact Info) Description 02/02/2018 Abstract [facility] CONVERSION [address] [place] [address] , Generic ConversionMD Social History Tobacco Use [...] on filedocumented in this encounter Care Teams Racing Board Marker Relationship Specialty Start Date End Date Ele Green MD [address] [place] [address] PCP - General EMERGENCY MEDICINE 03/10/23 11/22/24 Carlos Fuller PA [facility] [place] [address] PCP - General PHYSICIAN ASPHALT ROLLER OPERATOR 11/23/24 documented as of this encounter
[2025-04-13 17:09] VITALS: BP 117/63; PULSE 72; RESP 16; O2SAT 99
--- OUTSIDE RECORDS SUMMARY | 2025-04-13 17:12 | XMS_ITS | Clinical Summary ---
Author Organization [facility] Address [address] [place] [address] Care Team Providers Care Dividend Clerk Name Role Phone Job Fuller APRN-JOSÉ MIGUEL Unavailable [phone] Job Fuller APRN-JOSÉ MIGUEL Primary Care Provider Source Comments [facility],non-owned Affiliates and Associated Physician Practices is amultiple site organization consisting of ambulatory clinics and hospital sitesin [place], [place], [place] and [place]. This disclosure is being madepursuant to the Care Everywhere program and may not contain all information available regarding this patient. Last updated 18.[facility] Allergies Active Allergy Reactions Criticality [...] PM CDT Pulse 105 07/07/2020 10:58 AM COLD ROLL CATCHER Temperature 36.1 C (97 F) 07/07/2020 10:58 AM COLD ROLL CATCHER Respiratory Rate 20 06/02/2020 9:05 AM COLD ROLL CATCHER Oxygen Saturation 96% 07/07/2020 10:58 AM COLD ROLL CATCHER Inhaled Oxygen Concentration - - Weight 67.2 [...] patient's age to complete this topic Insurance [facility] Member Subscriber Plan / Payer (Ef fective 2024-Present) Name:Hope Barnett Relation to Subscriber:Spouse Name:ENRIQUE BARNETT Date of :1965 Address: [address] [place] [address] Payer ID:[id number] (NAIC) Type:PPO Address: [address] * Guarantor: HOPE BARNETT Account Type Relation to Patient Date of Phone Billing Address Personal/Family [place] [address] [facility] * Guarantor: HOPE BARNETT Account Type Relation to Patient Date of Phone Billing Address Personal/Family [address] [place] [phone] * Guarantor: HOPE BARNETT Account Type Relation to Patient Date of Phone Billing Address Personal/Family [address] [place] [address] Care Teams Dividend Clerk Relationship Specialty Start Date End Date Job Fuller APRN-CNP [address] [place] [address] PCP - General 06/06/20 Job Fuller APRN-CNP [address] [place] [address] 05/29/20
--- OUTSIDE RECORDS SUMMARY | 2025-04-13 17:12 | XMS_ITS | Clinical Summary ---
Author Organization [facility] Address [address] [place] [address] Care Team Providers Care Medical Economics Consultant Name Role Phone Carlos Fuller Primary [...] - 99 MG/DL 01/28/2017 1:56 PM CDT [facility] BUN 14 7.0 - 18.7 MG/DL 01/28/2017 1:56 PM CDT [facility] SODIUM S/P/B 142 136 - 145 MMOL/L 01/28/2017 1:56 PM CDT [facility] POTASSIUM S/P/B 4.0 3.5 - 5.1 MMOL/L 01/28/2017 1:56 PM CDT [facility] CHLORIDE S/P/B 108(H) 98 - 107 MMOL/L 01/28/2017 1:56 PM [facility] CO2 25.0 22 - 29 MMOL/L 01/28/2017 1:56 PM [facility] CREATININE S/P/B 0.67 0.60 - 1.10 MG/DL 01/28/2017 1:56 PM [facility] CALCIUM S/P/B 8.7 8.4 - 10.2 MG/DL 01/28/2017 1:56 PM [facility] ALBUMIN S/P/B 3.8 3.5 - 5.0 G/DL 01/28/2017 1:56 PM [facility] TOTAL PROTEIN S/P/B 6.8 6.4 - 8.3 G/DL 01/28/2017 1:56 PM [facility] BILIRUBIN TOTAL S/P/B 0.3 0.2 - 1.2 MG/DL 01/28/2017 1:56 PM [facility] ALT 11 0 - 31 U/L 01/28/2017 1:56 PM [facility] AST 13 5 - 34 U/L 01/28/2017 1:56 PM [facility] ALKALINE PHOSPHATASE S/P/B 104 30 - 115 U/L 01/28/2017 1:56 PM [facility] CHOLESTEROL 195 <200 MG/DL 01/28/2017 1:56 PM [facility] TRIGLYCERIDES 64 <150 MG/DL 01/28/2017 1:56 PM [facility] HDL 50(L) >60 MG/DL 01/28/2017 1:56 PM [facility] Comment:AN HDL OF >60 IS NO RISK, RISK IS DEFINED <40 LDL (CALCULATED) 132(H) <100 MG/DL 01/28/2017 1:56 PM CDT [facility] TSH 0.397 0.35 - 4.94 uIU/ML 01/28/2017 3:23 PM T [facility] A/G RATIO 1.3 1.1 - 1.9 RATIO 01/28/2017 1:56 PM CDT [facility] WBC 9.3 4.8 - 10.8 x10'3/uL 01/28/2017 12:14 PM CDT [facility] RBC 3.83(L) 4.10 - 5.10 x10'6/uL 01/28/2017 12:14 PM T [facility] HGB 11.7(L) 12.0 - 16.0 G/DL 01/28/2017 12:14 PM CDT [facility] HCT 36.0 36 - 46 % 01/28/2017 12:14 PM T [facility] MCV 94.0 80 - 100 FL 01/28/2017 12:14 PM CDT [facility] MCH 30.5 26.0 - 34.0 PG 01/28/2017 12:14 PM T [facility] MCHC 32.5 31.0 - 37.0 G/DL 01/28/2017 12:14 PM CDT [facility] PLT 364(H) 150 - 350 x10'3/uL 01/28/2017 12:14 PM T [facility] OTHER (TYPE IN COMMENTS) 01/28/2017 6:00 AM CDT 01/28/2017 10:34 AM CDT Comment:SERUM SPECIMEN~WHOLE BLOOD SAMPLE us Generic Conversion Md [facility] Final R esult [facility] [address] [place] [address], from Last 3 Months or Most Recently Relevant to Health Maintenance Insurance [facility] Care Teams Medical Economics Consultant Relationship Specialty Start Date End Date Carlos Fuller PA [facility] [place] [address] PCP - General PHYSICIAN MANUAL QA TESTER 11/23/24
--- OUTSIDE RECORDS SUMMARY | 2025-04-13 17:12 | XMS_ITS | Data Portability ---
Author Organization [facility] [place] Address [address] [place] [address] Care Team Providers Care Multimedia Developer Name Role Phone SUSIE LU Primary Care Provider Assessment Encounter Date Assessment [...] Organization Details Last Modified Time Details Appointments IRREGULAR BLEEDING 2024 02:30P Kamari ELDRIDGE MD Not available Not available Not available Lab testoster one, total, serum 2023 024 [facility] (Lab), [address] [place], [address], 12/07/2023 13:06:30 testoster one, free, serum 2023 024 [facility] (Lab), [address] [place], [address], 12/07/2023 13:06:31 CMP, serum or plasma 2023 024 [facility] (Lab), [address], [place], [address], 12/07/2023 13:06:30 hormone panel, serum or plasma 2023 024 [facility] (Lab), [address], [place], [address], 10/10/2023 11:58:04 Referral None recorded. Procedures None recorded. Surgeries dilation and curettage with hysterosc opy (SURG) 2023 024 [facility], [address], [place], [address], 11/24/2023 15:05:27 Imaging US, pelvis [email or web address], [address], [address], [place], [address], 10/13/2023 15:22:56 US, transvagi nal [address], [address], [address], [place], [address], 10/13/2023 15:22:56 MAMMO, screening , bilateral [address] [facility], [address], [place], [address], 11/04/2023 10:56:46 US, pelvis, complete 2023 024 [email or web address] [place], [address], [address], [place], [address], 10/09/2023 13:24:25 Medication Orders None recorded. Patient TargetsNo [...] or kits canno t be used [facility] . Femal e Estra diol Range s: Folli cular phasE 12.4- 233 pg/mL Ovula tion phasE 41.0- 398 pg/mL Lutea l phasE 22.3- 341 pg/mL Postm enopa usal <5-13 8 pg/mL Healt hy Pregn ant Women 1st Trime ster 154-3 243 pg/mL 2nd Trime ster 1561- 25499 pg/mL 3rd Trime ster 8525- >3000 0 pg/mL Not Available [facility] (Lab) [address] [place], [address], 10/10/2023 11:58:04 10/09/19 24 10/09/2023 FSH, LH, ESTRA DIOL FSH 15.0 mIU/m L This assay was perfo rmed using [employer] ratio n reage nts and test kits. Value s obtai kieran with other assay metho ds or kits canno t be used [facility] . Femal es Folli cular : 3.5-1 2.5 mIU/m L Ovula tion: 4.7-2 1.5 mIU/m L Lutea l: 1.7-7 .7 mIU/m L Postm enopa use: 25.8- 134.8 mIU/m L Not Available [facility] (Lab) [address] [place], [address], 10/10/2023 11:58:04 10/09/19 24 10/09/2023 FSH, LH, ESTRA DIOL LH 8.7 mIU/m L This assay was perfo rmed using [employer] reage nts and test kits. Value s obtai kieran with other assay metho ds or kits canno t be used [facility] . Femal es Mid-F ollic ular: 2.4-1 2.6 mIU/m L Mid-C ycle: 14.0- 95.6 mIU/m L Mid-L uteal : 1.0-1 1.4 mIU/m L Postm enopa use: 7.7-5 8.5 mIU/m L Not Available [facility] (Lab) [address] [facility], [place], [address], 10/10/2023 11:58:04 10/09/19 24 10/09/2023 IMAGE GUIDE D PAP AND HPV REGAR DLESS image guided Pap, HPV regardless of Pap result SEE RESULT S BELOW CASE REPOR T: Cytol ogy Gynec ologi estella Repor t Case: [id number] Provi nikhil: Javon Miranda Colle cted: 10/08 1214 STEEL MOLDER Order ing Locat ion: [place] Patho logy Recei tiarra: 10/09 1201 First Beverley n: Allyssa Liang, CT Rescr een: Silviano Crenshaw am, CT Speci men: Beverley delgado Pap - Image d, Cervi x STATE MENT OF ADEQU ACY: Satis facto ry for evalu ation Trans forma tion zone compo nent absen t The absen ce of an endoc ervic al compo nent was confi rmed by an addit ional scree ner. ----- ----- ----- ----- ----- ----- ----- ----- ----- ----- ----- ----- ----- ----- ----- ----- ----- ---- FINAL DIAGN OSIS: Negat starr for Intra epith carline talamantes or Beckie escobar (NIL) . Elect alisha boo d by Silviano Crenshaw am, CT on 024 [...] as clini judy ceballos nted. Not Available [facility] (Lab) [address], [place], [address], 10/14/2023 12:11:41 10/09/19 24 10/09/2023 TRICH OMONA S VAGIN BROOKE (RRNA ) trichomonas vaginalis ribosomal RNA (rrna) Negati ve negati ve Not Available [facility] (Lab) [address] [facility], [place], [address], 10/14/2023 12:11:42 10/09/19 24 10/09/2023 CT/GC (GUEVARA) , THINP REP VIAL chlamydia trachomatis, PCR Negati ve negati ve Not Available [facility] (Lab) [address] [facility], [place], [address], 10/14/2023 12:11:43 10/09/19 24 10/09/2023 CT/GC (GUEVARA) , THINP REP VIAL neisseria gonorrhoeae, PCR Negati ve negati ve Not Available [facility] (Lab) [address] [facility], [place], [address], 10/14/2023 12:11:43 12/02/19 24 12/02/2023 TESTO STERO NE, TOTAL testosterone , total 84 NG/dL 0-100 Not Available [facility] (Lab) [address] [place], [address], 12/07/2023 13:06:30 12/02/19 24 12/02/2023 CMP(C OMPRE HENSI VE METAB OLIC PANEL ) sodium 139 mmol/ L 133-14 6 Not Available [facility] (Lab) [address] [place], [address], 12/07/2023 13:06:30 12/02/19 24 12/02/2023 CMP(C OMPRE HENSI VE METAB OLIC PANEL ) potassium 4.2 mmol/ L 3.5-5. 1 Not Available [facility] (Lab) [address] [place], [address], 12/07/2023 13:06:30 12/02/19 24 12/02/2023 CMP(C OMPRE HENSI VE METAB OLIC PANEL ) chloride 103 mmol/ L 98-107 Not Available [facility] (Lab) [address] [facility], [place], [address], 12/07/2023 13:06:30 12/02/19 24 12/02/2023 CMP(C OMPRE HENSI VE METAB OLIC PANEL ) carbon dioxide 26 mmol/ L 21-31 Not Available [facility] (Lab) [address] [facility], [place], [address], 12/07/2023 13:06:30 12/02/19 24 12/02/2023 CMP(C OMPRE HENSI VE METAB OLIC PANEL ) anion gap 10 mmol/ L 4-13 Not Available [facility] (Lab) [address] [facility], [place], [address], 12/07/2023 13:06:30 12/02/19 24 12/02/2023 CMP(C OMPRE HENSI VE METAB OLIC PANEL ) blood urea nitrogen 10 mg/dL 7-25 Not Available [facility] system (Lab) [address] [facility], [place], [address], 12/07/2023 13:06:30 12/02/19 24 12/02/2023 CMP(C OMPRE HENSI VE METAB OLIC PANEL ) creatinine 0.86 mg/dL 0.60-1 .30 Not Available [facility] (Lab) [address] [facility], [place], [address], 12/07/2023 13:06:30 12/02/19 24 12/02/2023 CMP(C OMPRE HENSI VE METAB OLIC PANEL ) egfrcr (CKD-epi 2020) 81 mL/mi n/1.7 3_m2 >=60 Not Available [facility] (Lab) [address] [facility], [place], [address], 12/07/2023 13:06:30 12/02/19 24 12/02/2023 CMP(C OMPRE HENSI VE METAB OLIC PANEL ) calcium 9.4 mg/dL 8.3-10 .5 Not Available [facility] (Lab) [address] [facility], [place], [address], 12/07/2023 13:06:30 12/02/19 24 12/02/2023 CMP(C OMPRE HENSI VE METAB OLIC PANEL ) glucose 99 mg/dL 70-100 Not Available [facility] (Lab) [address] [facility], [place], [address], 12/07/2023 13:06:30 12/02/19 24 12/02/2023 CMP(C OMPRE HENSI VE METAB OLIC PANEL ) protein, total 7.0 g/dL 6.4-8. 3 Not Available [facility] (Lab) [address] [facility], [place], [address], 12/07/2023 13:06:30 12/02/19 24 12/02/2023 CMP(C OMPRE HENSI VE METAB OLIC PANEL ) albumin 4.5 g/dL 3.5-5. 0 Not Available [facility] (Lab) [address] [facility], [place], [address], 12/07/2023 13:06:30 12/02/19 24 12/02/2023 CMP(C OMPRE HENSI VE METAB OLIC PANEL ) ALT 12 units /L 9-43 Not Available [facility] (Lab) [address] [place], [address], 12/07/2023 13:06:30 12/02/19 24 12/02/2023 CMP(C OMPRE HENSI VE METAB OLIC PANEL ) alkaline phosphatase 73 units /L 34-104 Not Available [facility] (Lab) [address] [facility], [place], [address], 12/07/2023 13:06:30 12/02/19 24 12/02/2023 CMP(C OMPRE HENSI VE METAB OLIC PANEL ) AST 15 units /L 13-39 Not Available [facility] (Lab) [address] [facility], [place], [address], 12/07/2023 13:06:30 12/02/19 24 12/02/2023 CMP(C OMPRE HENSI VE METAB OLIC PANEL ) bilirubin, total 0.9 mg/dL 0.2-1. 2 Not Available [facility] (Lab) [address] [facility], [place], [address], 12/07/2023 13:06:30 12/02/19 24 12/02/2023 TESTO STERO NE, FREE testosterone free 11.8 pg/mL 0.2-5. 0 high The kathy ntrat ion of free testo stero ne is deriv ed from a vitor espinoza al model using total testo stero ne by LCMSM S, sex hormo ne aurelio ng globu memo and album in. This test was devel oped and its gadiel tical perfo rmanc e edda cteri stics have been deter mined by [employer] [facility] [place], [place]. It has not been clear ed or appro tiarra by the U.S. Food and Drug Admin istra tion. This assay has been valid ated pursu ant to the CLIA regul ation s and is used for clini estella purpo ses. Perfo rming Organ izati on Infor matio n: Site ID: AMD Name: [facility] Jai ls Insti valentino Addre ss: [address] [facility] [employer] [place], [place] Direc tor: Tito Belcher MD PhD Not Available [facility] (Lab) [address], [place], [address], 12/07/2023 13:06:31 10/13/19 24 10/13/2023 US, pelvi s No observ ation record ed. [email or web address] [place] [address], [place], [address], 10/13/2023 13:09:06 10/13/19 24 10/13/2023 US, trans vagin al No observ ation record ed. [email or web address] [place] [address], [place], [address], 10/13/2023 13:08:56 10/13/19 24 10/13/2023 US, cindy scanlon No observ ation record ed. [email or web address] Cyn [address], [place], [address], 10/22/2023 11:29:49 Result Notes None recorded. Procedures Surgical History Date Name Laterality Status Provider Name and Address Organization Details Recorded Time 11/24/19 24 DILATION AND CURETTAGE WITH HYSTEROSCOPY (SURG) completed Madi eLster [facility] 11/24/2023 16:16:49 10/09/19 24 Date of Last Pap Smear completed [facility] 12/02/2023 10:05:10 05/12/19 23 Date of Last Colonoscopy completed [facility] 10/09/2023 11:57:28 05/12/19 11 Tonsillectomy completed [facility] 10/09/2023 12:06:33 05/12/19 10 thyroidectomy completed [facility] 10/09/2023 12:06:47 Tubal Ligation completed [facility] 10/09/2023 12:06:25 Imaging Results None recorded. Procedure Notes None recorded. Medical Equipment None Reported. Allergies Allergen ID Allergen Name Allergen Category Reaction Reaction Severity Criticality Documentation Date Start Date Code Code System Note Provider Name and Address Organization Details Recorded Time 47863 Substance with sulfonami de structure and antibacte rial mechanism of action (substanc e) medicatio n Not available Not available Not available 10/09/2023 48298 8001 SNOMED [address] [facility] 11:51:23 Medications Name Sig [...] Updated DateTime 10/09/2023 162.56 cm 32.3 kg/m2 65700.37 g 124/78 mm[Hg] Cynthia Tigre [facility] 10/09/2023 11:51:13 Date Recorded Body height Body mass index (BMI) Body weight Systolic And Diastolic Provider Name and Address Organization Details Last Updated DateTime 10/23/2023 162.56 cm 32.9 kg/m2 46539.02 g 101/67 mm[Hg] Renée Garzon [facility] 10/23/2023 09:35:21 Date Recorded Body height Body mass index (BMI) Body weight Systolic And Diastolic Provider Name and Address Organization Details Last Updated DateTime 12/02/2023 162.56 cm 31.8 kg/m2 24945.59 g 106/73 mm[Hg] Cynthia Tigre [facility] 12/02/2023 10:03:58 Social History Question Answer Notes LastModified by Organizat ion Details LastModified Time Tobacco Smoking Status Current Every Day Smoker Cynthia Tigre [facility], [facility] 10/09/2023 12:02:44 Are You Blind [...] Or The Highest Degree You Have Received? TE50224-4 Information not available 10/09/2023 Are There Any [...] anxious, or unable to sleep at night)? HS30124-1 Information not available 10/09/2023 Family History Relationship Description Onset Age of this Age Resolved Age Notes LastModified by Organization Details LastModified Time Father Parkinson's disease Not available 2023 12:02:07 Mother Pulmonary fibroplasia Not available 09/11 12:02:32 Sister Pulmonary fibroplasia Not available 09/11 12:02:32 Medical History Condition Response Other Y Blood Transfusion N Dermatologic Disorders N Gestational Diabetes N Anxiety Disorder Y Autoimmune disease N Arthritis N Polyps N Infertility N Acid Reflux (GERD) Y Cancer N Varicosities N Stroke N Neurologic/Epilepsy N Fibromyalgia N Headaches N Kidney Disease N Heart Problems N Kidney or Bladder Problems N Eating Disorder N Art (IVF or FET) N Hepatitis/Liver Disease N No Past Medical History N Urinary Tract Infection N Asthma N Trauma/Violence N Thrombophilias N Allergies (Food, seasonal, environmental ) N Breast Cancer N Drug/Latex Allergies/Reactions N Lung Disease N Defects or Inherited Disease N Breast Problem N Hematologic disorders N Anesthesia Complications N History of STI Y Deep Vein Thrombosis N Polycystic ovary syndrome N History of abnormal pap N Endometriosis N High Cholesterol Y Thyroid Problems Y GI Problems N Anemia N Psychiatric Illness Y Ovarian Cancer N Diabetes Y Pulmonary (TB, Asthma) N Eczema N Abuse/Domestic Violence N Depression/ depression Y Heart Disease N Pre-Eclampsia N Hypertension N Osteoporosis N Gynecological History Statement/Question Response Date of [...] ICD10 Code Diagnosis IMO Codes Diagnosis Note [id number] Gertrude Peñaloza , [facility] [address] [address] 10/09/2023 11:22:36 10/09/2023 12:35:07 Postmenopausal bleeding 36372425 N95.0 Today we agreed to update a [...] of plan of care. Screening mammography 24 118543 Z12.31 Diarrhea 48312471 R11.0 We discussed making an updated appt with PCP for further evaluation of GI related sx's as those may/may not be related to BROKER issue at hand.She agrees. [id number] Alhaji Eldridge MD [place] [address] [address] 10/13/2023 11:39:42 10/13/2023 12:49:01 Postmenopausal bleeding 81815468 N95.0 [id number] SHAE CASH MD [place] [address] [address] 10/23/2023 09:17:40 10/29/2023 06:52:18 Postmenopausal bleeding 58614630 N95.0 - on HRT (estrogen and testostero ne) for years, no progestero ne therapy until August- two episodes of PMB- pelvic US demonstrat es heterogeno us and threatened endometriu m, 7mm- recommend full endometria l sampling with hysterosco py and D&C; r/b/a discussed with patient- continue progestero ne therapy until D&C [id number] SHAE CASH MD [place] [address] [address] 12/02/2023 09:52:04 12/02/2023 10:42:17 Hormone replacement therapy 823795433 Z79.890 - on IM testostero ne and estrogen, PO progestero ne- reports facial hair growth, voice deepening- will check testostero ne and CMP today; patient not fasting for lipid panel- follow up on results as available Postoperative visit 1438 17923 Z48.89 - s/p hysterosco py D&C 11/23- [...] Barth Member ID Guarantor Name 11/30/2023 1 [facility] [id number] Enrique Ferrell [id number] Hope Ramon Ghassan Notes Date Note Type [...] new regimen). CAITLIN Cardoza- [address], [place], [address], [facility] 10/09/2023 12:34:33 4 text/html Presents [...] cancer. SHAE CASH MD [address], [place], [address], [facility] 10/28/2023 22:58:21 4 text/html S/p hysteroscopy D&C 11/23. Patient doing well, no complaints. Pain resolved. Tolerating general diet. Denies nausea or vomiting. No shortness of breath or chest pain. Ambulating. Bleeding resolved. Patient on HRT with IM estrogen and testosterone. Patient reports increased facial hair and voice deepening. SHAE CASH MD [address], [place], [address], [facility] 12/02/2023 10:36:37 OBGyn Episode Ob Episode Information Episode Created Date Number of Fetuses Patient Bloodtype Patient rh Status Prepregnancy Weight lbs Domestic Partner Domestic Partner Phone Father Name Assistant Sales Manager Status 10/09/19 24 1 CLOSED Fetus Data First Name Last Name Admitted to NICU Weight (g) Sex Living Outcome Pediatric Complications Fetus ID Race Codes Race Delivery Type M Full Term 75560 Vaginal Delivery [place] Calculation Initial [place] Date [...] Domestic Partner Domestic Partner Phone Father Name Assistant Sales Manager Status 10/09/19 24 1 CLOSED Fetus Data First Name Last Name Admitted to NICU Weight (g) Sex Living Outcome Pediatric Complications Fetus ID Race Codes Race Delivery Type , Spontane ous 39465 [place] Calculation Initial [place] Date Initial Exam [...] Domestic Partner Domestic Partner Phone Father Name Assistant Sales Manager Status 10/09/19 24 1 CLOSED Fetus Data First Name Last Name Admitted to NICU Weight (g) Sex Living Outcome Pediatric Complications Fetus ID Race Codes Race Delivery Type F Full Term 00879 Vaginal Delivery [place] Calculation Initial [place] Date [...] Domestic Partner Domestic Partner Phone Father Name Assistant Sales Manager Status 10/09/19 24 1 CLOSED Fetus Data First Name Last Name Admitted to NICU Weight (g) Sex Living Outcome Pediatric Complications Fetus ID Race Codes Race Delivery Type , Induced 45183 [place] Calculation Initial [place] Date Initial Exam [...] Domestic Partner Domestic Partner Phone Father Name Assistant Sales Manager Status 10/09/19 24 1 CLOSED Fetus Data First Name Last Name Admitted to NICU Weight (g) Sex Living Outcome Pediatric Complications Fetus ID Race Codes Race Delivery Type , Spontane ous 88866 [place] Calculation Initial [place] Date Initial Exam Date Initial Exam Provider Initial Ultrasound Date Last Menstrual Period Date Ultra Sound Weeks Gestation 0 Eighteen To Twenty Week [place] Update Ultra Sound Date Fundal Height At Umbil Quickening Date Ultra Sound Latest Weeks Gestation Final [place] Confirmed By Final [place] Confirmed Date Final [place] Date Ultra Sound Latest Days Gestation 0 [...] Domestic Partner Domestic Partner Phone Father Name Assistant Sales Manager Status 10/09/19 24 1 CLOSED Fetus Data First Name Last Name Admitted to NICU Weight (g) Sex Living Outcome Pediatric Complications Fetus ID Race Codes Race Delivery Type , Induced 79636 [place] Calculation Initial [place] Date Initial Exam [...] Domestic Partner Domestic Partner Phone Father Name Assistant Sales Manager Status 10/09/19 24 1 CLOSED Fetus Data First Name Last Name Admitted to NICU Weight (g) Sex Living Outcome Pediatric Complications Fetus ID Race Codes Race Delivery Type F Full Term 95384 Vaginal Delivery [place] Calculation Initial [place] Date [...]
--- OUTSIDE RECORDS SUMMARY | 2025-04-13 17:12 | XMS_ITS | Encounter Summary ---
Author Organization [facility] Address [address] [place] [address] Care Team Providers Care Dispensing Optician Apprentice Name Role Phone Ele Green MD Primary Care Provider [phone] Carlos Fuller Primary Care Provider + Encounter Details Date Type Department Care Team (Late st Contact Info) Description 02/02/2018 Abstract [facility] CONVERSION [address] [place] [address] , Generic ConversionMD Social History Tobacco Use [...] on filedocumented in this encounter Care Teams Dispensing Optician Apprentice Relationship Specialty Start Date End Date Ele Green MD [address] [place] [phone] PCP - General EMERGENCY MEDICINE 03/10/23 11/22/24 Carlos Fuller PA [facility] [place] [address] PCP - General PHYSICIAN LIVESTOCK NUTRITION TERRITORY MANAGER 11/23/24 documented as of this encounter
--- OUTSIDE RECORDS SUMMARY | 2025-04-13 17:12 | XMS_ITS | Clinical Summary ---
Author Organization [facility] Address [facility] [place] [address] Care Team Providers Care Railroad Car Truck Builder Name Role Phone Ele Green MD Primary [...] on file Legal Sex Female 7:02 AM SENIOR ORACLE DATABASE DEVELOPER Gender Identity Not on file Sexual Orientation Not on file Last Filed Vital Signs Vital Sign Reading Time Taken Comments Blood Pressure 101/61 09/13/2022 12:42 PM CDT Pulse 98 09/13/2022 12:42 PM CDT Temperature 36.5 C (97.7 F) 09/13/2022 12:42 PM CDT Respiratory Rate 18 07/01/2023 9:00 AM SENIOR ORACLE DATABASE DEVELOPER Oxygen Saturation 96% 09/13/2022 12:42 PM CDT room air Inhaled Oxygen Concentration - - Weight 83.5 kg (184 lb) 07/01/2023 9:00 AM SENIOR ORACLE DATABASE DEVELOPER Height 162.6 cm (5' 4) 07/01/2023 9:00 AM SENIOR ORACLE DATABASE DEVELOPER Body Mass Index 31.58 07/01/2023 9:00 AM SENIOR ORACLE DATABASE DEVELOPER Plan of Treatment Health Maintenance Due [...] Vaccine (#1) 2025 7, 01/23/2016, 02/07/[address] [place] [address] [facility] Member Subscriber Plan / Payer (Ef fective 2022-Present) Name:Hope Barnett Relation to Subscriber:Spouse Name:ENRIQUE BARNETT Date of :1965 (Home) Address: [address] [place] [address] Payer ID:[id number] (NAIC) Type:[facility] H[facility]/PPO Address: [place] [phone] Care Teams Railroad Car Truck Builder Relationship Specialty Start Date End Date Ele Green MD PCP - General Emergency Medicine 07/11/22
--- OUTSIDE RECORDS SUMMARY | 2025-04-13 17:12 | XMS_ITS | Patient Health Record ---
Author Organization [facility] [employer] Address [address] [place] [address] Care Team Providers Care Freelance Director Name Role Phone Won Forbes MD Primary Care Provider Loi Lee Unavailable [phone] Allergies Allergen (clinical drug ingredient) Drug/Non Drug [...] MG/3ML Solution Pen-injector Subcutaneous *Pick strength-form from AeroDron for eRX* 06/30/2023 Active LUER-ASHLEY SYRINGE-NEEDLE 3 mL 25 gauge x 1 SYRINGE, EMPTY DISPOSABLE MISCELLANEOUS *Reorder from AeroDron for eRx and Interaction Alerts* 06/30/2023 Active Depo-Estradiol 5 mg/mL Oil Intramuscular 06/30/2023 Active LUER-ASHLEY SYRINGE-NEEDLE 3 mL 18 x 1 1/2 SYRINGE, EMPTY DISPOSABLE MISCELLANEOUS *Reorder from 3SP Groupan for eRx and Interaction Alerts* 06/30/2023 Active [...] decision-maker Yes Do you have Power of Manager Process for Health or [facility]? No Tobacco Use: Social Info Question Answer [...] Notes Problem Mixed bipolar affective disorder, moderate (092449044) Bipolar disorder, current episode mixed, moderate (F31.62) Active confirmed Problem Generalized anxiety disorder (24792428) Generalized anxiety disorder (F41.1) Active confirmed Problem Primary insomnia (0833566) Primary insomnia (F51.01) Active confirmed Problem Attention deficit hyperactivity disorder (978601826) Attention-deficit hyperactivity disorder, unspecified type (F90.9) Active confirmed Vital Signs Heart Rate 75 /min 02/25/2025 Blood pressure diastolic 80 mm Hg 02/25/2025 Height-cm 170.18 cm 02/25/2025 Weight-kg 66.23 kg 02/25/2025 Height 67.00 in 02/25/2025 Blood pressure systolic 122 mm Hg 02/25/2025 Weight 146 lbs 02/25/2025 BMI 22.86 kg/m2 02/25/2025 Encounters [facility] [address] [address] 08/23/2024 Loi Carvajal Generalized anxiety disorder F41.1 ; Bipolar disorder, current episode mixed, moderate F31.62 ; Primary insomnia F51.01 and Attention-deficit hyperactivity disorder, unspecified type F90.9 [facility] [address] [address] 12/03/2024 Loi Carvajal Generalized anxiety disorder F41.1 ; Bipolar disorder, current episode mixed, moderate F31.62 ; Primary insomnia F51.01 and Attention-deficit hyperactivity disorder, unspecified type F90.9 [place] [address] [address] 02/25/2025 Loi Carvajal Generalized anxiety disorder F41.1 ; Bipolar disorder, current episode mixed, moderate F31.62 ; Primary insomnia F51.01 and Attention-deficit hyperactivity disorder, unspecified type F90.9 [place] [address] [address] 05/03/2024 Loi Carvajal Attention-deficit hyperactivity disorder, unspecified type F90.9 [place] [address] [address] 06/11/2024 Loi Carvajal Attention-deficit hyperactivity disorder, unspecified type F90.9 [facility] [address] [address] 07/22/2024 Loi Carvajal Attention-deficit hyperactivity disorder, unspecified type F90.9 [place] [address] [address] 08/18/2024 Loi Carvajal Attention-deficit hyperactivity disorder, unspecified type F90.9 [place] [address] [address] 10/12/2024 Loi Carvajal Attention-deficit hyperactivity disorder, unspecified type F90.9 [facility] [address] [address] 12/24/2024 Loi Carvajal Attention-deficit hyperactivity disorder, unspecified [...] anxiety disorder (ICD-10 - F41.1) stable 10/12/2024 Attention-defici t hyperactivity disorder, unspecified type (ICD-10 - F90.9) 12/03/2024 Generalized anxiety disorder (ICD-10 - F41.1) stable 12/24/2024 Attention-defici t hyperactivity disorder, unspecified type (ICD-10 - F90.9) 02/25/2025 Generalized anxiety disorder (ICD-10 - F41.1) stable 02/25/2025 Bipolar disorder, current episode mixed, moderate (ICD-10 - F31.62) 12/03/2024 Bipolar disorder, current episode mixed, moderate (ICD-10 - F31.62) 08/23/2024 Bipolar disorder, current episode mixed, moderate (ICD-10 - F31.62) 08/23/2024 Primary insomnia (ICD-10 - F51.01) trazodone 100mg hs prn 12/03/2024 Primary insomnia (ICD-10 - F51.01) trazodone 100mg hs prn 02/25/2025 Primary insomnia (ICD-10 - F51.01) trazodone 100mg hs prn 02/25/2025 Attention-defici t hyperactivity disorder, unspecified type (ICD-10 - F90.9) 12/03/2024 Attention-defici t hyperactivity disorder, unspecified type (ICD-10 - F90.9) 08/23/2024 Attention-defici t hyperactivity disorder, unspecified type [...] AM, [address], [place], [address], Insurance Providers Payer Name Payer Address Payer Phone Subscriber Number Group Number Insured Name Patient Relationship to Insured Coverage Start Date Coverage End Date [facility] [address] [address] [place] [address] [id number] MAXIMO FERRELL Self - patient is the insured [facility] [address] [address] [place] [address] [id number] MAXIMO FERRELL Self - patient is the [...] Normal Surgical History Surgery Date(Month/Year) Tonsilectomy/adenoids Tonsillectomy (452301024) 05/12/2009
--- OUTSIDE RECORDS SUMMARY | 2025-04-13 17:12 | XMS_ITS | Encounter Summary ---
Author Organization [facility] Address [address] [place] [address] Care Team Providers Care Furniture Finisher Helper Name Role Phone Job Fuller DEVELOPMENT PLANNER-PROFESSOR OF ENVIRONMENTAL STUDIES Unavailable [phone] Job Fuller DEVELOPMENT PLANNER-PROFESSOR OF ENVIRONMENTAL STUDIES Primary Care Provider Encounter Details Date Type Department Care Team (Late st Contact Info) Description 05/16/2023 Lab Requisition [facility] - DermPath Lab [address] [place] [address] Jim Westbrook MD [address] [place] [address] Social History Tobacco Use Types Packs/Day [...] Comments DERMATOPATHOLOGY Routine 05/15/2023 12:0 0 AM RESEARCH METHODS INSTRUCTOR documented in this encounter Results * DERMATOPATHOLOGY (05/15/2023 12:00 AM RESEARCH METHODS INSTRUCTOR) Case Report Dermatopathology Report Case: [id number] Authorizing Provider: Jim Westbrook MD Collected: 05/15/2023 12:00 AM Ordering Location: [facility] DermPath Lab Received: 05/16/2023 12:53 PM Pathologist: Alisia Masters MD Specimen: Skin, left upper chest 2:48 PM [facility] DERMATOPATHOLOGY LABORATORY Final Diagnosis Specimen A. SKIN, left upper chest: HYPERPLASTIC (HYPERTROPHIC) ACTINIC KERATOSIS WITH ACANTHOLYTIC FEATURES (L57.0) (see microscopic description) 2:48 PM [facility] DERMATOPATHOLOGY LABORATORY at [address] RESEARCH METHODS INSTRUCTOR Clinical History AK vs BCCA. Path#[id number] 2:48 PM [facility] DERMATOPATHOLOGY LABORATORY Gross Description Specimen A: Received is one formalin filled container labeled with the patient's name and designated left upper chest. The specimen consists of a shave biopsy measuring 4x2x1 mm. Jar 0. 2:48 PM [facility] DERMATOPATHOLOGY LABORATORY Microscopic Description Specimen A. SKIN, left upper chest: There is hyperkeratosis alternating with parakeratosis. There is epidermal hyperplasia with disorderly maturation of keratinocytes with nuclear pleomorphism confined to the lower half of the epidermis. Focally there is a suprabasilar cleft with acantholytic cells. Additional deeper sections were obtained and reviewed. 2:48 PM [facility] DERMATOPATHOLOGY LABORATORY Disclaimer An external and internal [...] purposes. Billing Codes Specimen Charges Stain Charges 33180 1 2:48 PM [facility] DERMATOPATHOLOGY LABORATORY Embedded Images 2:48 PM [facility] DERMATOPATHOLOGY LABORATORY Pathology/Cytolog y TISSUE SPECIMEN FROM SKIN / Unknown 05/15/2023 05/16/2023 12:53 PM RESEARCH METHODS INSTRUCTOR us Jim Westbrook MD LAB - PATHOLOGY/CYTOLOGY ORDER KERON Final Result DERMATOPATHOLOGY LABORATORY [facility] - Department of Dermatology [facility] Medicine [address] [place] [address], [address] [place] [address], [facility] [phone] documented in this encounter Visit Diagnoses Not on filedocumented in this encounter Care Teams Furniture Finisher Helper Relationship Specialty Start Date End Date Job Fuller APRN-CNP [address] [place] [address] PCP - General 06/06/20 Job Fuller APRN-CNP [address] [place] [address] 05/29/20 documented as of this encounter
--- NOTE | 2025-04-13 17:26 | ED_ITS ---
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 Stated complaint: vaginal bleeding Time Seen by Provider: 04/13/25 15:04 History of Present Illness HPI Narrative: Patient presents here with vaginal bleeding, she is on testosterone, estrogen, and progesterone shots, has been on them for years but just started having bleeding few days ago Related Data Home Medications ?Medication ?Instructions ?Recorded ?Confirmed ?Last Taken ?Type semaglutide 1 mg/dose (4 mg/3 mL) 1 mg subcut WEEKLY 0 07/01/22 01/29/24 01/25/24 History subcutaneous pen injector (Ozempic) syringe with needle 3 mL 18 x 1 04/01/23 01/29/24 Unk nown History /2 (BD Luer-Muul Syringe) testosterone cypionate 200 mg/mL 50 mg IM [id number] 03/1301/29/24 Unknown History intramuscular oil estradiol cypionate 5 mg/mL 0.5 mg IM [id number] 05/31/23 01/29/24 Unknown History intramuscular oil (Depo-Estradiol) lumateperone 10.5 mg capsule 21 mg PO HS 05/31/2301/1001/28/24 History (Caplyta) omeprazole 20 mg capsule,delayed 40 mg PO HS 05/31/23 01/29/24 01/28/24 History release progesterone micronized 100 mg 100 mg PO HS 11/12/23 0 01/29/24 01/28/24 History capsule cyanocobalamin (vitamin B-12) 1,000 mcg IM WEEKLY 01/1001/29/24 01/26/24 History 1,000 mcg/mL injection solution dextroamphetamine-amphetamine ER PO 06/16/24 Unknown History 15 mg 24hr capsule,extend release acyclovir 800 mg tablet mg 11/09/24 Unknown History spironolactone 100 mg tablet mg 11/17/24 Unknown Hist ory Allergies Allergy/AdvReac Type Severity Reaction Status Date / Time Sulfa (Sulfonamide Allergy Mild Itching Verified 11/17/24 17:20 Antibiotics) Review of Systems 2 Review of Systems: All systems reviewed & are unremarkable except as noted in HPI and below PMFSH Past Medical History Medical History Venous anomaly Constipation Vomiting Abnormal CT of the abdomen Diabetes states is prediabetic Pneumonia due to COVID-19 virus COVID-28 February 2020 Bronchitis Bipolar 1 disorder Surgical History Surgical History H/O tubal ligation H/O partial thyroidectomy Hx of tonsillectomy Family History Family History Father Family history of Parkinson's disease Social History Social History Years smoked: 3 Smoking status: Current every day smoker Tobacco type: e-cigarettes/vaping Smoking end date: 05/12/01 Additional smoking assessment comments: VAPING FOR 8 YEARS Alcohol intake: current Drinks per week: 1 Substance use: former Substance use type: crack/cocaine Other substance usage details: Daily Last use: takes hydrocodone for chronic back pain Lack of Transportation: No Lack of Food: Never True Current Housing: I Have Housing Concerned About Future Housing: No Difficulty Paying Gas/Electric Bills: No Difficulty Paying for Meds: No Currently Unemployed: No Education: High School Diploma/GED Difficulty w/ Childcare or Family Care: No Living arrangements: with family Gender identity (if verbalized by the patient): Female Spiritual care concerns: No Exam 2 Narrative: EXAMINATION OF ORGAN SYSTEMS/BODY AREAS: Constitutional: Vital signs per nursing GENERAL:[No acute distress, non-toxic appearing.] HEAD: Normal with no signs of head trauma. EYES: EOMI, conjunctiva normal ENT: Hearing grossly intact LUNGS: Nonlabored breathing. HEART: [Regular rate and rhythm] ABD: [Soft], [nontender to palpation] : No active bleeding visualized EXT: Normal range of motion SKIN: [No rashes or lesions.] NEURO: [Alert. No gross focal sensory or strength deficits.] PSYCH: Normal affect Course Vital Signs Vital signs: Vital Signs Temperature 97.7 F 04/13/25 15:01 Pulse Rate 87 04/13/25 15:01 Respiratory Rate 18 04/13/25 15:01 Blood Pressure 108/64 04/13/25 15:01 Pulse Oximetry 98 04/13/25 15:01 Oxygen Delivery Room Air 04/13/25 15:01 Temperature 97.7 F 04/13/25 15:01 Pulse Rate 72 04/13/25 17:09 Respiratory Rate 16 04/13/25 17:09 Blood Pressure 117/63 04/13/25 17:09 Pulse Oximetry 99 04/13/25 17:09 Oxygen Delivery Room Air 04/13/25 15:01 [facility] MDM Narrative Medical decision making narrative: Patient presents here with vaginal bleeding, she is on testosterone, estrogen, and progesterone shots, has been on them for years but just started having bleeding few days ago. Hemoglobin is stable here, coags are normal, transvaginal ultrasound obtained thankfully without acute abnormality. Patient updated on findings and the need to follow-up with her OBGYN. Return precautions provided Differential Diagnosis Differential Diagnosis: Dysfunctional uterine bleeding, malignancy Lab Data 04/13/25 15:19 04/13/25 15:19 Labs: Lab Results 04/13/25 Range/Units 15:19 WBC 10.0 (4.5-10.0) K/mm3 RBC 3.93 L (4.2-5.4) M/mm3 Hgb 12.9 (12.0-15.0) g/dL Hct 37.4 (37.0-47.0) % MCV 95.2 (80-100) fl MCH 32.8 (26-34) pg MCHC 34.5 (32-36) g/dl RDW 12.4 (11.5-14.5) % Plt Count 321 (150-375) k/mm3 MPV 8.1 (7.4-10.4) fl Immature Gran % (Auto) 0.5 (0-0.5) % Neut % (Auto) 63.0 (45.5-73.1) % Lymph % (Auto) 28.6 (18.3-44.2) % [place] % (Auto) 5.9 (2.6-8.5) % Eos % (Auto) 1.9 (0-4.4) % Baso % (Auto) 0.1 L (0.2-1.2) % Lymph # (Auto) 2.86 (0.9-3.2) K/mm3 [place] # (Auto) 0.6 (0.1-0.6) K/mm3 Eos # (Auto) 0.2 (0-0.3) K/mm3 Baso # (Auto) 0.0 (0.0-0.1) K/mm3 Abs Immat Gran (auto) 0.05 H (0.00-0.031) K/mm3 Absolute Neuts (auto) 6.3 (1.3-6.7) K/mm3 Absolute Nucleated RBC 0.000 (0.0-0.012) K/mm3 Nucleated RBC % 0.0 (0.0-0.2) % PT 12.5 (11.1-14.7) Seconds INR 0.9 APTT 24.9 (22.3-36.8) Seconds Sodium 134 L (137-145) mmol/L Potassium 3.7 (3.4-5.0) mmol/L Chloride 106 (98-107) mmol/L Carbon Dioxide 24 (22-30) mmol/L Anion Gap 4 (4-12) mmol/L BUN 14 D (7-17) mg/dL Creatinine 0.86 (0.7-1.0) mg/dL Estim Creat Clear Calc 56 ml/min Estimated GFR > 60 (59 - ) Glucose 86 (65-110) mg/dL Calcium 8.5 (8.4-10.2) mg/dL Imaging Data Radiologist's impression: ITS Impressions Transvaginal US 04/13/25 16:38 IMPRESSION: 1. Unremarkable pelvic ultrasound. Discharge Plan Discharge Clinical Impression: Dysfunctional uterine bleeding Patient Disposition: Home Condition: Stable Instructions: Abnormal (Dysfunctional) Uterine Bleeding (ED) Additional Instructions: Thankfully your ultrasound and labs today do not look concerning. Please follow-up with your OBGYN and come back to the ER for any further issues. Patient Language: German Prescriptions: No Action Caplyta 10.5 mg capsule 21 mg PO HS omeprazole 20 mg capsule,delayed release(DR/EC) 40 mg PO HS Depo-Estradiol 5 mg/mL oil 0.5 mg IM [id number] dextroamphetamine-amphetamine 15 mg capsule,extended release 24hr PO acyclovir 800 mg tablet cephalexin 500 mg capsule 500 mg PO Q12H 7 Days Qty: 14 0RF spironolactone 100 mg tablet fluconazole 150 mg tablet 150 mg PO ONCE Qty: 2 0RF Rx Instructions: as a single dose. May repeat in 72 hours if needed. prednisone 20 mg tablet 40 mg PO DAILY 5 Days Qty: 10 0RF amoxicillin-pot clavulanate 875-125 mg tablet 1 tablet PO Q12H 10 Days Qty: 20 0RF Ozempic 1 mg/dose (4 mg/3 mL) pen injector 1 mg SUBCUT WEEKLY (DME) BD Luer-Mulu Syringe 3 mL 18 x 1 1/2 syringe MISCELLANEOUS testosterone cypionate 200 mg/mL oil 50 mg IM [id number] cyanocobalamin (vitamin B-12) 1,000 mcg/mL solution 1,000 mcg IM WEEKLY progesterone micronized 100 mg capsule 100 mg PO HS Follow-up/Referrals: UNKNOWN,DOCTOR [Primary Care Provider]
== END 2025-04-13 17:32 | disposition home or self-care (01) ==
PROVIDERS: Emergency Provider Emergency Medicine
DX: N93.8 Other specified abnormal uterine and vaginal bleeding (principal); Z79.85 Long-term (current) use of injectable non-insulin antidiabetic drugs; E11.9 Type 2 diabetes mellitus without complications; F31.9 Bipolar disorder, unspecified; F17.290 Nicotine dependence, other tobacco product, uncomplicated
CPT/HCPCS: 36415; 76830; 80048; 85025; 85610; 85730; 99284